=== PATIENT | female | born 1985 | race African-American/Black ===

== ENCOUNTER 2024-02-08 22:25 | Emergency (ER) | payer MEDICARE, MEDICAID, SELFPAY ==
--- NOTE | ~2024-02-08 | CT_ITS ---
EXAMINATION: CT femur LT wo con DATE: 02/09/2024 02:13 INDICATION: Left posterior thigh pain. TECHNIQUE: Computed tomography (CT) of the left femur was performed without intravenous contrast. Aut omated exposure control and iterative reconstruction technique were employed. The dose-length product was 1005.40 mGy-cm. COMPARISON: None FINDINGS: There are widespread arterial calcifications. Bone alignment is normal. No fracture. There is mild left hip osteoarthritis. There is mild left knee osteoarthritis. No knee joint effusion. Hypo density and calcifications are noted in the posterior thigh musculature. There is widespread edema in the pelvis and thighs. There is mild left inguinal lymphadenopathy, likely reactive. IMPRESSION: 1. Hypodensity in the left posterior thigh musculature. The differential diagnosis includes muscle st rains, inflammatory myopathy, infective myositis, diabetic myopathy, and rhabdomyolysis. Reviewed, dictated and finalized at location E. IMPRESSION: 1. Hypodensity in the left posterior thigh musculature. The differential diagno sis includes muscle strains, inflammatory myopathy, infective myositis, diabeti c myopathy, and rhabdomyolysis.
[2024-02-08 22:34] VITALS: BP 211/103; PULSE 95; RESP 18; TEMP 36.3; O2SAT 95
[2024-02-08 23:00] VITALS: BP 199/99; PULSE 96; RESP 16; O2SAT 96
[2024-02-08 23:45] VITALS: BP 195/90; PULSE 98; RESP 16; O2SAT 96
[2024-02-09 00:16] VITALS: BP 195/94; PULSE 95; RESP 14; O2SAT 95
[2024-02-09 01:31] VITALS: BP 208/102
[2024-02-09 01:46] VITALS: BP 192/101; O2SAT 98
--- NOTE | 2024-02-09 01:49 | PC.NURSE ---
Unsuccessful IV stick x 2. ERP notified. CT changed to non-contrast.
--- NOTE | 2024-02-09 02:19 | ED.EXTPRO ---
HPI - Extremity Problem General Chief complaint: Extremity Problem,Nontraumatic Stated complaint: l side pain and swelling Time Seen by Provider: 02/09/24 00:37 History of Present Illness HPI Narrative: Patient is a 38-year-old female who presents to the emergency department this morning complaining of posterior left thigh pain. Patient states that this pain has been ongoing for the past 5 months since August and although she has been telling multiple physicians about her pain, patient feels as though she has been treated as though she is pain seeking and her pain has not been taking seriously. Patient admits that she had a venous Doppler of her left lower extremity which revealed no evidence of DVT, however, patient states that pain is still present. She states that no imaging has ever been done. Patient is on dialysis for end-stage renal disease Thursday, , Thursday and her last dialysis was on Thursday. Patient denies any trauma to her left thigh region. There are no other modifying, alleviating, or precipitating factors at this time. Related Data Allergies Allergy/AdvReac Type Severity Reaction Status Date / Time No Known Allergies Allergy Verified 02/09/24 03:27 Review of Systems Review of Systems: All systems are reviewed and are negative unless stated otherwise in the HPI. PMFSH Comments Past medical history significant for end-stage renal disease on HD and diabetes mellitus. Surgical history significant for HD fistula. Denies any alcohol abuse or illicit drug use. Exam Narrative: General: Alert, awake, afebrile, in no acute distress. HEENT: PERRL, no rhinorrhea, no post nasal drip, oropharynx clear. Neck: Trachea midline, no JVD, no lymphadenopathy. Cardiovascular: Regular rate and rhythm, no murmurs, rubs or gallops, no peripheral edema. Respiratory: Clear to auscultation bilaterally, no tachypnea, no wheezing, no rhonchi, no rubs, no respiratory distress. Abdomen: Soft, nontender, nondistended, no rebound, no guarding, no peritoneal signs. Musculoskeletal: No joint swelling or deformity, normal muscle tone, tenderness to palpation over the left posterior mid thigh along the mid hamstring. Anastacio swelling, overlying erythema, ecchymosis, induration or evidence of infection. Skin: No rashes or petechia, no signs of infection. Psychiatric: Alert and oriented, normal behavior and judgment for situation. Neurological: Alert and oriented to person, place, and time. Follows all commands. No focal deficits, speech is clear and fluent. Course Vital Signs Vital signs: Vital Signs Temperature 97.4 F L 02/08/24 22:34 Pulse Rate 95 02/08/24 22:34 Respiratory Rate 18 02/08/24 22:34 Blood Pressure 211/103 H 02/08/24 22:34 Pulse Oximetry 95 02/08/24 22:34 Temperature 97.4 F L 02/08/24 22:34 Pulse Rate 87 02/09/24 04:30 Respiratory Rate 18 02/09/24 04:30 Blood Pressure 129/96 H 02/09/24 04:30 Pulse Oximetry 90 02/09/24 04:30 MDM - Extremity (Nontraumatic) MDM Narrative Medical decision making narrative: The patient was evaluated by myself in the emergency department. History is obtained from patient who is an independent historian and physical exam was performed. External medical records were reviewed at this time. IV was established and pertinent tests were ordered. Patient was administered an oral Faison 5-325 mg for pain. Imaging studies obtained included a left femur CT without IV contrast which was independently interpreted by me revealing hypodensity in the left posterior thigh musculature possibly concerning for diabetic myonecrosis, versus myositis versus hematoma. Giving the lack of trauma to that region, did inform patient that her symptoms could be due to myositis versus diabetic myonecrosis. Differential diagnosis considerations include fractures, myositis, diabetic myonecrosis, hematoma and rhabdomyolysis although unlikely given patient's lack muscle pain any
[2024-02-09] MEDS: HYDROcodone/acetaminophen (*CRX) 5-325 MG TABLET 1 TAB PO (03:26)
[2024-02-09 04:30] VITALS: BP 129/96; PULSE 87; RESP 18; O2SAT 90
== END 2024-02-09 05:14 | disposition home or self-care (01) ==
PROVIDERS: Emergency Provider Emergency Medicine
DX: E13.69 Other specified diabetes mellitus with other specified complication (principal); M79.89 Other specified soft tissue disorders; E11.22 Type 2 diabetes mellitus with diabetic chronic kidney disease; N18.6 End stage renal disease; Z99.2 Dependence on renal dialysis
CPT/HCPCS: 73700; 99284; A9270

== ENCOUNTER 2024-03-17 01:43 | Emergency (ER) | payer MEDICARE, MEDICAID, SELFPAY ==
--- NOTE | ~2024-03-17 | CT_ITS ---
CT of the Abdomen and Pelvis: Indication: Abdominal pain Technique: 2.5 mm axial scans were obtained through the abdomen and pelvis following intravenous adm inistration of 100 cc of Omnipaque 350. Dose reduction technique was used on this scan by utilizing a utomated exposure control and iterative reconstruction technique. The dose-length product (DLP) was 5 29.27 mGy-cm. COMPARISON: 02/09/2024 Findings: Scans through the lung bases are unremarkable. The liver, spleen, pancreas, adrenals and kidneys are within normal limits. Gallbladder is distended, possible minimal gallbladder wall thickening. No evidence of aortic aneurysm. No retroperitoneal ly mphadenopathy. No bowel obstruction or bowel wall thickening. There is no evidence to suggest acute appendicitis. Images through the pelvis were performed. Urinary bladder unremarkable. No pelvic mass seen. No ascit es. Probable mild soft tissue anasarca changes. Shotty bilateral inguinal lymph nodes are present. Impression: Probable minimal gallbladder wall thickening, nonspecific. Consider ultrasound to further assess for gallstones/cholecystitis. Mild soft tissue anasarca changes. Reviewed, dictated and finalized at location M. Impression: Probable minimal gallbladder wall thickening, nonspecific. Consider ultrasound to further assess for gallstones/cholecystitis. Mild soft tissue anasarca changes.
--- NOTE | ~2024-03-17 | XR_ITS ---
Portable chest x-ray Comparison: None Clinical History: Chest pain Findings: Lungs are clear, without focal consolidation or pleural effusion. Cardiomediastinal silho uette is probable mildly enlarged. Bones and soft tissues are unremarkable. Impression: Clear lungs. Mild cardiomegaly. Reviewed, dictated and finalized at location . Impression: Clear lungs. Mild cardiomegaly.
[2024-03-17 01:51] VITALS: BP 197/105; PULSE 89; RESP 18; TEMP 36.9; O2SAT 100
--- NOTE | 2024-03-17 01:55 | ECG_ITS ---
SEE SCANNED COPY FOR CONFIRMED REPORT. MTDD
--- NOTE | 2024-03-17 01:56 | ED.ABDPAIN ---
HPI - Abdominal Pain General Chief Complaint: Abdominal Pain <Liz Bermudez PA-C - Last Filed: 03/17/24 02:46> Stated Complaint: L side pain <Liz Bermudez PA-C - Last Filed: 03/17/24 02:46> Time Seen by Provider: 03/17/24 01:45 <Liz Bermudez PA-C - Last Filed: 03/17/24 02:46> History of Present Illness HPI narrative: 38-year-old female with history of hypertension, diabetes, hemodialysis who is on a Thursday, , Thursday schedule presents to emergency department for right sided abdominal and flank pain that radiates up into her chest for 3 days. Patient states that the onset of symptoms she had some nausea and vomiting that has since resolved. This she states the pain has significantly worsened which prompted her to come to the ED today. Reports the pain is in the right upper quadrant and extends up into the right inferior aspect of her chest and wraps around to her back. She states she please eating makes her pain worse. She does have her gallbladder present. Reports prior appendectomy. Last bowel movement was yesterday and diarrhea which is not abnormal for her. She does not make urine. Denies fever, cough or congestion, radiating chest pain or shortness of breath. Patient states she is compliant with hemodialysis and has not missed any appointments. <Liz Bermudez PA-C - Last Filed: 03/17/24 02:46> Related Data Allergies/Adverse Reactions: Allergies Allergy/AdvReac Type Severity Reaction Status Date / Time No Known Allergies Allergy Verified 02/09/24 03:27 <Liz Bermudez PA-C - Last Filed: 03/17/24 02:46> Review of Systems Review of Systems: CONSTITUTIONAL: Denies fever, chills, or sweats. EYES: Denies visual changes, redness, or discharge. ENT: Denies rhinorrhea, congestion, sore throat, or otalgia. CARDIOVASCULAR: See HPI RESPIRATORY: Denies cough or dyspnea. GASTROINTESTINAL: See HPI GENITOURINARY: Denies dysuria or hematuria. SKIN: Denies rash or itching. MUSCULOSKELETAL: Denies back pain, joint pain, or myalgia. NEUROLOGIC: Denies headache, numbness, or weakness. PSYCHIATRIC: Denies anxiety or depression. <Liz Bermudez PA-C - Last Filed: 03/17/24 02:46> Exam Narrative: GENERAL: Appears uncomfortable, nontoxic appearing HEAD: Normocephalic, atraumatic. EYES: PERRLA and EOMI. ENT: Nares clear, no rhinorrhea or epistaxis. Mucous membranes moist. NECK: Supple. CHEST: Clear to auscultation. No respiratory distress. HEART: Regular rate and rhythm. No murmur heard. Normal peripheral pulses. ABDOMEN: Normoactive bowel sounds. Abdomen soft with tenderness and guarding in the right upper quadrant, positive Rodney's. No rebound or rigidity. No CVA tenderness. EXTREMITIES: Normal range of motion. No edema. SKIN: Warm, dry, no rash. NEURO: No focal deficits. Alert and oriented x3 <Liz Bermudez PA-C - Last Filed: 03/17/24 02:46> GENERAL: Appears uncomfortable, nontoxic appearing HEAD: Normocephalic, atraumatic. EYES: PERRLA and EOMI. ENT: Nares clear, no rhinorrhea or epistaxis. Mucous membranes moist. NECK: Supple. CHEST: Clear to auscultation. No respiratory distress. HEART: Regular rate and rhythm. No murmur heard. Normal peripheral pulses. ABDOMEN: Normoactive bowel sounds. Abdomen soft with tenderness and guarding in the epigastric area . No rebound or rigidity. No CVA tenderness. point of care right upper quadrant ultrasound did not show a thickened gallbladder wall, no pericholecystic fluid. Sonographic Rodney's was negative. EXTREMITIES: Normal range of motion. No edema. SKIN: Warm, dry, no rash. NEURO: No focal deficits. Alert and oriented x3 <Mauro Corcoran MD - Last Filed: 03/17/24 05:42> Course Vital Signs Vital signs: Vital Signs Temperature 98.4 F 03/17/24 01:51 Pulse Rate 89 03/17/24 01:51 Respiratory Rate 18 03/17/24 01:51 Blood Pressure 197/105 H 03/17/24 01:51 Pulse Oximetry
[2024-03-17] MEDS: MORPHINE SULFATE (*CRX) 4 MG/ML INJ IV PUSH (02:05)
[2024-03-17 02:07] LABS: Basophils Absolute Auto 0.1 K/mm3 (0.0-0.1); Basophils Percent Auto 1.3 % (0.2-1.2); Eosinophils Absolute Auto 0.4 K/mm3 (0-0.3); Eosinophils Percent Auto 7.7 % (0-4.4); Hemoglobin 10.7 g/dL (12.0-15.0); Immature Granulocyte Absolute 0.01 K/mm3 (0.00-0.031); Immature Granulocyte Percent A 0.2 % (0-0.5); Lymphocytes Absolute Auto 1.82 K/mm3 (0.9-3.2); Lymphocytes Percent Auto 33.3 % (18.3-44.2); Mean Corpuscular HGB Conc 32.4 g/dl (32-36); Mean Corpuscular Hemoglobin 29.2 pg (26-34); Mean Corpuscular Volume 90.2 fl (80-100); Mean Platelet Volume 9.9 fl (7.4-10.4); Monocytes Absolute Auto 0.4 K/mm3 (0.1-0.6); Monocytes Percent Auto 8.1 % (2.6-8.5); Neutrophils Absolute Auto 2.7 K/mm3 (1.3-6.7); Neutrophils Percent Auto 49.4 % (45.5-73.1); Platelet Count Result 203 k/mm3 (150-375); Red Blood Count 3.66 M/mm3 (4.2-5.4); Red Cell Distribution Width 16.4 % (11.5-14.5); White Blood Count 5.5 K/mm3 (4.5-10.0)
[2024-03-17 02:18] LABS: Lactic Acid Reflex 1.7 mmol/L (0.7-2.0)
[2024-03-17 02:18] LABS: Magnesium 2.1 mg/dL (1.6-2.3); Phosphorus 9.4 mg/dL (2.5-4.5)
[2024-03-17 02:25] LABS: Alanine Aminotransferase 8 U/L (6-35); Albumin Level 4.4 g/dL (3.5-5.1); Alkaline Phosphatase 126 U/L (38-126); Anion Gap 16 mmol/L (4-12); Aspartate Amino Transferase 21 U/L (14-36); Bilirubin,Total 0.7 mg/dL (0.2-1.3); Blood Urea Nitrogen 69 mg/dL (7-17); Carbon Dioxide 25 mmol/L (22-30); Chloride 94 mmol/L (98-107); Glucose 330 mg/dL (65-110); Lipase 99 U/L (23-300); Potassium 5.6 mmol/L (3.4-5.0); Sodium 135 mmol/L (137-145)
[2024-03-17 02:29] LABS: Troponin I 0.027 ng/mL (0.000-0.034)
[2024-03-17 02:48] LABS: Estimated CRCL calculation 8 ml/min; Estimated Glomerular Filt Rate 6
[2024-03-17] MEDS: FAMOTIDINE 20 MG/2 ML VIAL IV PUSH (03:38)
[2024-03-17 03:57] VITALS: BP 196/101; PULSE 86; RESP 17; O2SAT 95
[2024-03-17] MEDS: METOCLOPRAMIDE HCL INJ 10 MG/2 ML VIAL IV PUSH (04:30)
[2024-03-17 05:04] VITALS: BP 167/89; PULSE 93; RESP 18; O2SAT 93
[2024-03-17 06:04] VITALS: BP 175/95; PULSE 87; RESP 14; O2SAT 98
== END 2024-03-17 06:04 | disposition home or self-care (01) ==
LOC: ANHED 05:44
PROVIDERS: Emergency Provider Physician Assistant
DX: E11.43 Type 2 diabetes mellitus with diabetic autonomic (poly)neuropathy (principal); K31.84 Gastroparesis; R10.11 Right upper quadrant pain; E11.22 Type 2 diabetes mellitus with diabetic chronic kidney disease; I12.0 Hypertensive chronic kidney disease with stage 5 chronic kidney disease or end stage renal disease; N18.6 End stage renal disease; Z99.2 Dependence on renal dialysis; Z79.4 Long term (current) use of insulin; R94.31 Abnormal electrocardiogram [ECG] [EKG]
CPT/HCPCS: 36415; 71045; 74177; 80053; 83605; 83690; 83735; 84100; 84484; 85025; 93005; 96374; 96375; 99284; J2270; J2765; Q9967

== ENCOUNTER 2024-03-20 01:43 | Observation (INO) | payer MEDICARE, MEDICAID, SELFPAY ==
[2024-03-20] VITALS (19 sets, daily range): BP systolic 148–228; BP diastolic 77–109; PULSE 76–92; RESP 8–21; TEMP 35.8–36.6; O2SAT 92–100
--- NOTE | ~2024-03-20 | NM_ITS ---
EXAMINATION: NM hepatobiliary w pharm DATE: 03/21/2024 12:22 INDICATION: Right upper quadrant abdominal pain. COMPARISON: CT abdomen and pelvis 03/20/2024 TECHNIQUE: 5.2 mCi Tc-99m mebrofenin (Choletec) was administered intravenously. Scintigraphic images of the abdomen were obtained for one hour. Then, 1.6 mcg sincalide (Kinevac) IV was administered, an d imaging was continued for 30 minutes. FINDINGS: There is normal clearance of radiotracer from the blood pool. There is homogeneous tracer u ptake by the liver. Activity progresses to the bowel and gallbladder. Gallbladder ejection fraction (GBEF) was 4%. Note that most patients with gallbladder dysfunction have GBEF < 35%, which overlaps w ith the broad normal range of 10-90%. IMPRESSION: 1. Low gallbladder ejection fraction, consistent with gallbladder dysfunction and/or chronic cholecy stitis. Reviewed, dictated and finalized at location A. IMPRESSION: 1. Low gallbladder ejection fraction, consistent with gallbladder dysfunction and/or chronic cholecystitis.
--- NOTE | ~2024-03-20 | US_ITS ---
EXAMINATION: US abdomen limited DATE: 03/20/2024 08:10 INDICATION: Abdominal pain. TECHNIQUE: Multiple grayscale and Doppler ultrasound images of the abdomen were obtained. COMPARISON: CT abdomen and pelvis 03/20/2024 FINDINGS: The visualized portions of the head and body of the pancreas are normal. The liver is chester l without focal lesion. There is normal flow in main portal vein. The gallbladder is distended and co ntains sludge. No gallstones or gallbladder wall thickening. There is no sonographic Rodney's sign. T he common duct is normal and measures 3 mm. IMPRESSION: 1. Gallbladder distention, which may be secondary to fasting. Reviewed, dictated and finalized at location A.
--- NOTE | ~2024-03-20 | CT_ITS ---
EXAMINATION: CT abdomen pelvis w con DATE: 03/20/2024 05:25 INDICATION: Abdominal pain. TECHNIQUE: Computed tomography (CT) of the abdomen and pelvis was performed with 100 mL Omnipaque 350 intravenous contrast. Automated exposure control and iterative reconstruction technique were employe d. The dose-length product was 432.41 mGy-cm. COMPARISON: CT abdomen and pelvis 03/17/2024 FINDINGS: The visualized portions of the lung bases demonstrate mild atelectasis. No pleural effusion . Cardiomegaly is noted. No pericardial effusion. The liver is normal. The gallbladder is distended. Gallbladder wall thickening is noted. The spleen, pancreas, and adrenal glands are normal. There is m ild atrophy of the kidneys. There are widespread arterial calcifications. Body wall edema is noted. T here is edema of the intra-abdominal fat. There are changes of appendectomy. There are no pathologica lly enlarged lymph nodes. There is no free intraperitoneal fluid. There is moderate thoracic spondylo sis and mild lumbar spondylosis. IMPRESSION: 1. Gallbladder distention and gallbladder wall thickening, which may be secondary to fasting and inte rstitial edema. Correlate with physical exam to exclude acute cholecystitis. Reviewed, dictated and finalized at location A. IMPRESSION: 1. Gallbladder distention and gallbladder wall thickening, which may be seconda ry to fasting and interstitial edema. Correlate with physical exam to exclude a cute cholecystitis.
[2024-03-20] MEDS: MORPHINE SULFATE (*CRX) 4 MG/ML INJ IV PUSH ×2 (02:57→07:21)
[2024-03-20] MEDS: SODIUM CHLORIDE 0.9% IV 500 ML 999 ML IV CONT (02:57)
[2024-03-20] MEDS: METOCLOPRAMIDE HCL INJ 10 MG/2 ML VIAL IV PUSH (02:57)
[2024-03-20 03:47] LABS: Basophils Absolute Auto 0.1 K/mm3 (0.0-0.1); Basophils Percent Auto 1.4 % (0.2-1.2); Eosinophils Absolute Auto 0.4 K/mm3 (0-0.3); Eosinophils Percent Auto 8.3 % (0-4.4); Hemoglobin 11.3 g/dL (12.0-15.0); Immature Granulocyte Absolute 0.01 K/mm3 (0.00-0.031); Immature Granulocyte Percent A 0.2 % (0-0.5); Lymphocytes Absolute Auto 1.38 K/mm3 (0.9-3.2); Mean Corpuscular HGB Conc 31.4 g/dl (32-36); Mean Corpuscular Volume 92.5 fl (80-100); Mean Platelet Volume 10.3 fl (7.4-10.4); Monocytes Absolute Auto 0.4 K/mm3 (0.1-0.6); Monocytes Percent Auto 7.9 % (2.6-8.5); Neutrophils Absolute Auto 2.7 K/mm3 (1.3-6.7); Neutrophils Percent Auto 54.2 % (45.5-73.1); Platelet Count Result 193 k/mm3 (150-375); Red Blood Count 3.89 M/mm3 (4.2-5.4); Red Cell Distribution Width 16.2 % (11.5-14.5); White Blood Count 4.9 K/mm3 (4.5-10.0)
[2024-03-20 03:57] LABS: Alanine Aminotransferase 8 U/L (6-35); Albumin Level 4.5 g/dL (3.5-5.1); Alkaline Phosphatase 136 U/L (38-126); Anion Gap 12 mmol/L (4-12); Aspartate Amino Transferase 22 U/L (14-36); Bilirubin,Total 0.7 mg/dL (0.2-1.3); Blood Urea Nitrogen 52 mg/dL (7-17); Carbon Dioxide 29 mmol/L (22-30); Chloride 90 mmol/L (98-107); Estimated CRCL calculation 10 ml/min; Estimated Glomerular Filt Rate 8; Glucose 380 mg/dL (65-110); Lipase 671 U/L (23-300); Sodium 131 mmol/L (137-145)
--- NOTE | 2024-03-20 05:09 | ED.GENADULT ---
HPI - General Adult General Chief complaint: Abdominal Pain Stated complaint: abd pain Time Seen by Provider: 03/20/24 02:03 History of Present Illness HPI narrative: Patient 38-year-old female who presents emergency department with chief complaint of abdominal pain and nausea. Patient reports she has history of gastroparesis also was seen in the emergency department about a week ago after she had large gallbladder and also had an episode of gastroparesis. The patient reports she has continued to have pain since that visit and reports the pain is not really improved. Patient reports she has prior history of end-stage renal disease and goes to dialysis Thursday Related Data Allergies Allergy/AdvReac Type Severity Reaction Status Date / Time No Known Allergies Allergy Verified 02/09/24 03:27 Review of Systems Review of Systems: A 10 system review of systems was completed on the patient and is negative except for what is stated in the HPI. Nursing and ancillary documentation was reviewed. Exam Narrative: GENERAL: Well-appearing, well-nourished, and in no acute distress. HEAD: Normocephalic, atraumatic. EYES: PERRLA and EOMI. ENT: Nares clear, no rhinorrhea or epistaxis. Mucous membranes moist. NECK: Supple. CHEST: Clear to auscultation. No respiratory distress. HEART: Regular rate and rhythm. No murmur heard. Normal peripheral pulses. ABDOMEN: Soft, diffusely tender, nondistended, normal active bowel sounds. EXTREMITIES: Normal range of motion. No edema. There is a fistula present in left upper extremity SKIN: Warm, dry, no rash. NEURO: No focal deficits. Alert and oriented x3. PSYCH: Normal mood and affect. Course Vital Signs Vital signs: Vital Signs Temperature 36.6 C 03/20/24 01:46 Pulse Rate 92 03/20/24 01:46 Respiratory Rate 17 03/20/24 01:46 Blood Pressure 200/103 H 03/20/24 01:46 Pulse Oximetry 100 03/20/24 01:46 Oxygen Delivery Room Air 03/20/24 01:46 Temperature 36.6 C 03/20/24 01:46 Pulse Rate 87 03/20/24 06:45 Respiratory Rate 16 03/20/24 06:45 Blood Pressure 165/77 H 03/20/24 06:45 Pulse Oximetry 99 03/20/24 06:45 Oxygen Delivery Room Air 03/20/24 01:46 Medical Decision Making MDM Narrative Medical decision making narrative: Differential diagnosis includes pancreatitis, colitis, cholecystitis, choledocholithiasis, gastroparesis Laboratory studies were obtained on the patient which showed a mildly elevated lipase 671 white count was 4.9 hemoglobin is 11.3 BUN is 52 creatinine was 7.3 patient is end-stage renal disease on dialysis potassium is 5.[address] scan of the abdomen pelvis showed 1. Gallbladder distention and gallbladder wall thickening, which may be secondary to fasting and interstitial edema. Correlate with physical exam to exclude acute cholecystitis. To the patient having significant pain mildly elevated lipase and a equivocal CT scan patient will be admitted for observation for pain control and ultrasound of the gallbladder. Vital Signs Vital Signs: Vital Signs Temperature 36.6 C 03/20/24 01:46 Pulse Rate 92 03/20/24 01:46 Respiratory Rate 17 03/20/24 01:46 Blood Pressure 200/103 H 03/20/24 01:46 Pulse Oximetry 100 03/20/24 01:46 Oxygen Delivery Room Air 03/20/24 01:46 Temperature 36.6 C 03/20/24 01:46 Pulse Rate 87 03/20/24 06:45 Respiratory Rate 16 03/20/24 06:45 Blood Pressure 165/77 H 03/20/24 06:45 Pulse Oximetry 99 03/20/24 06:45 Oxygen Delivery Room Air 03/20/24 01:46 Lab Data 03/20/24 02:59 03/20/24 02:59 Labs: Lab Results 03/20/24 Range/Units 02:59 WBC 4.9 (4.5-10.0) K/mm3 RBC 3.89 L (4.2-5.4) M/mm3 Hgb 11.3 L (12.0-15.0) g/dL Hct 36.0 L (37.0-47.0) % MCV 92.5 (80-100) fl MCH 29.0 (26-34) pg MCHC 31.4 L (32-36) g/dl RDW 16.2 H (11.5-14.5) % Plt Count 193 (150-375) k/mm3
[2024-03-20 07:14] LABS: SPREG INTERNAL CONTROL Positive; Serum Qual hCG Negative
--- NOTE | 2024-03-20 07:30 | PM.IMHP ---
H&P: HPI History of Present Illness Date/Time: 03/20/24 07:30 Chief Complaint: Abdominal pain Narrative: 38-year-old female with insulin-dependent diabetes and a history of gastroparesis presented the emergency room with a 2 week history of abdominal pain is a deep aching pain in the right upper abdomen. It does not radiate. There unknown factors. No change in her stool. She is not making urine to the says which she receives on Thursday through Thursday. pain has questioned a bit over the last 2 weeks. Currently it is severe but not totally incapacitating. She still has an appetite. She denied nausea or vomiting. Notes that the pain is much different than the pain she is with gastroparesis. She denied fevers chills or sweats. Denied chest pain or shortness of breath. Denied weakness or numbness. Denied skin sores. Denied recreational substance use other than cannabis with last use about 3 weeks ago. Home insulin regimen is glargine 40 units daily and NovoLog 10 units t.i.d. before meals. She does not check her sugar very often. She has occasional hypoglycemia that resolves with eating. Review of Systems Review of Systems: All systems reviewed & are unremarkable except as noted in HPI and below PMFSH Past Medical History Medical History (Updated 03/20/24 @ 11:49 by Edwardo Cobian MD) Arteriovenous fistula for hemodialysis in place, primary Cannabis use disorder End stage renal disease on dialysis Type 1 diabetes Family History Family History Father No problems noted. Social History Social History Smoking packs per day: 1 Smoking cigarettes per day: 20.0 Years smoked: 23 Smoking pack-years: 23.00 Smoking status: Current every day smoker Tobacco type: cigarettes Alcohol intake: never Drinks per week: 0 Substance use: current Substance use type: marijuana Last use: February Do You Feel Safe in your Home?: Yes Lack of Transportation: YES Lack of Food: Never True Current Housing: I Have Housing Concerned About Future Housing: No Difficulty Paying Gas/Electric Bills: No Difficulty Paying for Meds: No Currently Unemployed: No Education: High School Diploma/GED Difficulty w/ Childcare or Family Care: No Spiritual care concerns: Yes (Church) Meds Home Medications and Allergies Home Medications Medication Instructions Recorded Confirmed Type hydrocodone 5 mg-acetaminophen 325 1 tablet PO Q8H PRN pain #10 tabs 02/09/24 Rx mg tablet trazodone 100 mg tablet 100 mg PO QHS PRN sleep #30 tabs 02/27/24 Rx metoclopramide HCl 10 mg tablet 10 mg PO Q6H PRN nausea and 03/17/24 Rx (Reglan) vomiting #30 tabs Allergies Allergy/AdvReac Type Severity Reaction Status Date / Time No Known Allergies Allergy Verified 02/09/24 03:27 Vital Signs Vital Signs - 24 hr 03/20/24 01:46 03/20/24 02:01 03/20/24 02:16 Temperature 97.9 F Pulse Rate 92 92 Respiratory Rate 17 21 H Blood Pressure 200/103 H 193/107 H 187/104 H Pulse Oximetry 100 97 Oxygen Delivery Room Air 03/20/24 03:16 03/20/24 03:31 03/20/24 03:46 Temperature Pulse Rate 88 89 86 Respiratory Rate 16 14 15 Blood Pressure 179/95 H 177/95 H 177/91 H Pulse Oximetry Oxygen Delivery 03/20/24 04:01 03/20/24 04:16 03/20/24 04:31 Temperature Pulse Rate 87 86 87 Respiratory Rate 15 14 14 Blood Pressure 166/91 H 166/91 H 148/95 H Pulse Oximetry Oxygen Delivery 03/20/24 04:46 03/20/24 06:45 Temperature Pulse Rate 83 87 Respiratory Rate 11 L 16 Blood Pressure 169/97 H 165/77 H Pulse Oximetry 95 99 Oxygen Delivery Exam Narrative: SKIN: Multiple hypermelanotic areas on face, trunk, extremities HEENT: PERRL, sclerae nonicteric, pharyngeal mucosa pink and intact NECK: No JVD, adenopathy, or thyromegaly CHEST: Clear to auscultat
--- NOTE | 2024-03-20 08:40 | PC.NURSE ---
This patient, Celeste Waters, was admitted to [facility] Surg Room 327-01. Patient/family oriented to hospital policies and general routines including ID bracelet, bed and alarms, visiting hours, pain management, procedures, bathroom and other care routines, personal items, smoking policy, room service/diet, and visiting hours. Information on how to activate the Rapid Response Team has been discussed. Patient/Family are encouraged to report perceived risks to care and to ask questions if they do not understand what they are told or what they should do.
[2024-03-20 10:46] LABS: Glucose Point of Care 177 mg/dl (65-105)
[2024-03-20] MEDS: oxyCODONE HCL (*CRX) 2.5 MG TAB IR PO ×2 (13:11→18:25)
--- NOTE | 2024-03-20 13:45 | PM.CNNEP ---
Assessment and Plan Assessment and plan (1) End stage renal disease: Code(s): N18.6 - End stage renal disease Status: Chronic Assessment and Plan: plan next HD on Thursday continue outpatient schedule of //Thursday follow electrolytes, volume status, and clearance (2) Abdominal pain: Code(s): R10.9 - Unspecified abdominal pain Status: Acute Assessment and Plan: as noterd by admission history admission CT abdomen pelvis revealed distended gallbladder with thickened wall RUQ with distended gallbladder LFTs okay elevated lipase noted HIDA scan ordered for further evaluation clear liquid diet pain control (3) Hypertension: Code(s): I10 - Essential (primary) hypertension Status: Chronic Assessment and Plan: quite erratic at baseline pain issues maybe playing a role as well will restart carvedilol and losartan (home medications) may require PRN medications as well (4) Anemia: Code(s): D64.9 - Anemia, unspecified Status: Chronic Assessment and Plan: due to ESRD Epogen with HD follow trend of H/H (5) Type 1 diabetes: Code(s): E10.9 - Type 1 diabetes mellitus without complications Status: Chronic Assessment and Plan: follow accu-cheks glycemic control per hospitalists I will continue follow the patient with you while she remains hospitalized and make further recommendations as deemed necessary. Thank you for allowing me to participate in the care of this patient. History of Present Illness Reason for Consult Consult date: 03/20/24 Reason for consult: end stage renal disease Chief Complaint Chief complaint: abdominal pain,esrd History of Present Illness Narrative: The patient is a 38-year-old female with a past medical history as outlined below who presented to [facility] Emergency Room with complaints of abdominal pain. The patient reports that she has been having abdominal pain for last 2 weeks have been current on and off which she describes as a deep aching pain localized to the right upper quadrant. There is no apparent radiation and she does not report any specific alleviating or worsening factors. Although she reports the pain is sometimes quite severe, she is able to tolerated and is not incapacitating. She denies any nausea or vomiting and reports that the abdominal pain is different than the usual pain she has in association with gastroparesis. No reported fevers, chills, diaphoresis, dizziness, lightheadedness, shortness of breath, or weakness. Given the persistence of the abdominal pain and it is fluctuating nature, she came to the ER for further assessment Workup and evaluation emergency room demonstrated the patient be hemodynamically stable and in no acute distress. Routine blood tests were significant for a chemistry that was indicative of her known history of end-stage renal disease with a normal white blood cell count, hemoglobin/ hematocrit, and platelet count. Her lipase was mildly elevated as well. A subsequent CT scan of the abdomen pelvis was done which demonstrated a distended gallbladder without evidence of acute cholecystitis. A right upper quadrant ultrasound was done as well which confirmed the aforementioned distended gallbladder without any other significant findings. Given her constellation of symptoms that led to the presentation to the emergency room along with the results of the imaging studies mention, she was admitted to the hospital for further evaluation therapy. Renal consultation was requested due to her end-stage renal disease. The patient is somewhat familiar to me as I take care of her outpatient dialysis needs. She currently dialyzes on a Thursday, , Thursday schedule at [facility] dialysis under my care. I recently inherited the patient approximately a few months ago as she was previously being followed by [facility]
[2024-03-20 17:14] LABS: Glucose Point of Care 221 mg/dl (65-105)
[2024-03-20] MEDS: LOSARTAN POTASSIUM 100 MG TABLET PO (17:25)
[2024-03-20] MEDS: amLODIPine BESYLATE 5 MG TABLET PO (17:25)
[2024-03-20] MEDS: carvediloL 25 MG TABLET PO (17:25)
[2024-03-20] MEDS: INSULIN ASPART (*BKC) 100 UNITS/ML SUB-Q ×2 (17:28→17:31)
[2024-03-20] MEDS: PANTOPRAZOLE SODIUM IV 40 MG VIAL IV PUSH (20:34)
[2024-03-20] MEDS: HEPARIN SODIUM 5,000 UNITS/ML VIAL 5000 UNITS SUB-Q (20:34)
[2024-03-20] MEDS: INSULIN GLARGINE (*BKC) 100 UNITS/ML 20 UNITS SUB-Q (20:37)
[2024-03-20 20:53] LABS: Glucose Point of Care 116 mg/dl (65-105)
[2024-03-21] MEDS: oxyCODONE HCL (*CRX) 2.5 MG TAB IR PO ×3 (00:53→20:58)
[2024-03-21 00:54] VITALS: PULSE 76
[2024-03-21] MEDS: carvediloL 25 MG TABLET PO ×3 (00:54→20:57)
[2024-03-21 05:34] LABS: Hematocrit 37.1 % (37.0-47.0); Hemoglobin 10.8 g/dL (12.0-15.0); Mean Corpuscular HGB Conc 29.1 g/dl (32-36); Mean Corpuscular Hemoglobin 29.3 pg (26-34); Mean Corpuscular Volume 100.5 fl (80-100); Mean Platelet Volume 12.6 fl (7.4-10.4); Platelet Count Result 51 k/mm3 (150-375); Red Blood Count 3.69 M/mm3 (4.2-5.4)
[2024-03-21 05:39] LABS: White Blood Count 3.2 K/mm3 (4.5-10.0)
[2024-03-21 06:00] VITALS: BP 182/97; PULSE 73; RESP 18; TEMP 36.4; O2SAT 100
[2024-03-21 06:50] LABS: Alanine Aminotransferase 6 U/L (6-35); Albumin Level 4.2 g/dL (3.5-5.1); Alkaline Phosphatase 89 U/L (38-126); Anion Gap 17 mmol/L (4-12); Aspartate Amino Transferase 21 U/L (14-36); Bilirubin,Total 0.7 mg/dL (0.2-1.3); Blood Urea Nitrogen 64 mg/dL (7-17); CRP < 0.5 mg/dL (<1.0); Carbon Dioxide 24 mmol/L (22-30); Chloride 90 mmol/L (98-107); Estimated CRCL calculation 9 ml/min; Estimated Glomerular Filt Rate 6; Glucose 99 mg/dL (65-110); Magnesium 2.1 mg/dL (1.6-2.3); Phosphorus 11.1 mg/dL (2.5-4.5); Potassium 5.6 mmol/L (3.4-5.0); Sodium 131 mmol/L (137-145)
[2024-03-21 07:09] LABS: Hepatitis B Surface Antigen Negative (Negative)
[2024-03-21 07:23] LABS: Lipase 55 U/L (23-300)
[2024-03-21 07:28] LABS: Hepatitis B Surface Anti Res Positive
[2024-03-21] MEDS: SODIUM ZIRCONIUM CYCLOSILICATE 10 GM POWD.PACK PO (07:37)
[2024-03-21 07:51] LABS: Glucose Point of Care 75 mg/dl (65-105)
--- NOTE | 2024-03-21 08:31 | PHAR ---
TALKED TO NAOMIE, PLATELETS ARE 51,000 & ON HEPARIN. MD WILL NEED TO BE CONTACTED BEFORE NEXT DOSE GIVEN.
[2024-03-21 11:30] LABS: Glucose Point of Care 79 mg/dl (65-105)
[2024-03-21] MEDS: LOSARTAN POTASSIUM 100 MG TABLET PO (11:44)
[2024-03-21] MEDS: PANTOPRAZOLE SODIUM IV 40 MG VIAL IV PUSH ×2 (11:44→20:58)
[2024-03-21] MEDS: amLODIPine BESYLATE 5 MG TABLET PO (11:44)
--- NOTE | 2024-03-21 12:35 | PM.PNNEP ---
Progress Note: A&P Assessment and Plan (1) End stage renal disease: Code(s): N18.6 - End stage renal disease Status: Chronic Assessment and Plan: HD tomorrow continue outpatient schedule of //Thursday follow electrolytes, volume status, and clearance (2) Abdominal pain: Code(s): R10.9 - Unspecified abdominal pain Status: Acute Assessment and Plan: as noterd by admission history admission CT abdomen pelvis revealed distended gallbladder with thickened wall RUQ with distended gallbladder LFTs okay elevated lipase noted HIDA scan results noted advance diet as tolerated pain control (3) Hypertension: Code(s): I10 - Essential (primary) hypertension Status: Chronic Assessment and Plan: quite erratic at baseline pain issues maybe playing a role as well back on home medications may require PRN medications as well (4) Anemia: Code(s): D64.9 - Anemia, unspecified Status: Chronic Assessment and Plan: due to ESRD Epogen with HD follow trend of H/H (5) Type 1 diabetes: Code(s): E10.9 - Type 1 diabetes mellitus without complications Status: Chronic Assessment and Plan: follow accu-cheks glycemic control per hospitalists Will continue to follow. Subjective Date/time seen: 03/21/24 12:35 Interval history: Follow-up for end stage renal disease on hemodialysis. HIDA scan done earlier today with results noted; still with on/off abdominal pain but current medication therapy keeps this symptom in check; no apparent distress voiced at the time of my visit; no issues/events overnight or earlier this morning. Exam Narrative: General: WD/WN female in NAD Heart: normal S1 and S2; no rub Lungs: clear to auscultation Abdomen: soft, mild TTP in RUQ, nondistended, positive bowel sounds Extremities: no cyanosis or clubbing; no edema Skin: warm and dry Objective Data Vital Signs Vital Signs: Vital Signs Temp Pulse Resp BP Pulse Ox O2 Del Method 03/21/24 12:00 97.3 F L 68 16 168/93 H 100 03/21/24 08:00 Room Air 03/21/24 06:00 97.5 F L 73 18 182/97 H 100 03/21/24 00:54 76 03/20/24 21:29 97.1 F L 76 16 184/100 H 100 Intake/Output Intake/Output: Intake & Output 03/18/24 03/19/24 03/20/24 03/21/24 23:59 23:59 23:59 23:59 Intake Total 1098 440 Balance 1098 440 Meds/Results Medications: Active Medications Generic Name Dose Route Start Last Admin Trade Name Freq PRN Reason Stop Dose Admin Acetaminophen 650 mg 03/20/24 12:13 Acetaminophen 325 Mg Tablet PO Q4H PRN Pain Rated 1-3 Amlodipine Besylate 5 mg 03/20/24 14:45 03/21/24 11:44 Amlodipine Besylate 5 Mg Tablet PO 5 mg QAM KAREEN Administration Carvedilol 25 mg 03/20/24 17:10 03/21/24 11:44 Carvedilol 25 Mg Tablet PO 25 mg Q12HR KAREEN Administration Dextrose 12.5 gm 03/20/24 12:08 Dextrose 50% 25 Gm/50 Ml Syringe IV PUSH PRN PRN Hypoglycemia Protocol Glucagon 1 mg 03/20/24 12:08 Glucagon For Inj 1 Mg Vial IM PRN PRN Hypoglycemia Protocol Glucose 15 gm 03/20/24 12:08 Glucose Oral Gel 15 Gm Of Glucse In 37.5 Gm Tube PO PRN PRN Hypoglycemia Protocol Heparin Sodium (Porcine) 5,000 units 03/20/24 21:00 03/21/24 12:15 Heparin Sodium 5,000 Units/Ml Vial SUB-Q Not Given Q12HR KAREEN Hydralazine HCl 10 mg 03/21/24 10:38 Hydralazine Hcl 20 Mg/Ml Vial IV PUSH Q8H PRN Blood Pressure - High Hydromorphone HCl 0.5 mg 03/20/24 12:11 Hydromorphone Hcl Inj (*Crx) 1 Mg/Ml Syr IV PUSH Q3H PRN Pain Rated 7-10 Dextrose 1,000 mls @ 100 mls/hr 03/20/24 12:08 Dextrose 5% 1,000 Ml IVPB PRN PRN Hypoglycemia Protocol Insulin Aspart 3 units 03/20/24 12:00 03/21/24 16:51 Insulin Aspart (*Bkc) 100 Units/Ml SUB-Q 3
--- NOTE | 2024-03-21 12:35 | P.PNNP_ITS ---
Progress Note: A&P Assessment and Plan (1) End stage renal disease: Code(s): N18.6 - End stage renal disease Status: Chronic Assessment and Plan: * HD tomorrow * continue outpatient schedule of //Thursday * follow electrolytes, volume status, and clearance (2) Abdominal pain: Code(s): R10.9 - Unspecified abdominal pain Status: Acute Assessment and Plan: * as noterd by admission history * admission CT abdomen pelvis revealed distended gallbladder with thickened wall * RUQ with distended gallbladder * LFTs okay * elevated lipase noted * HIDA scan results noted * advance diet as tolerated * pain control (3) Hypertension: Code(s): I10 - Essential (primary) hypertension Status: Chronic Assessment and Plan: * quite erratic at baseline * pain issues maybe playing a role as well * back on home medications * may require PRN medications as well (4) Anemia: Code(s): D64.9 - Anemia, unspecified Status: Chronic Assessment and Plan: * due to ESRD * Epogen with HD * follow trend of H/H (5) Type 1 diabetes: Code(s): E10.9 - Type 1 diabetes mellitus without complications Status: Chronic Assessment and Plan: * follow accu-cheks * glycemic control per hospitalists Will continue to follow. Subjective Date/time seen: 03/21/24 12:35 Interval history: Follow-up for end stage renal disease on hemodialysis. HIDA scan done earlier today with results noted; still with on/off abdominal pain but current medication therapy keeps this symptom in check; no apparent distress voiced at the time of my visit; no issues/events overnight or earlier this morning. Exam Narrative: General: WD/WN female in NAD Heart: normal S1 and S2; no rub Lungs: clear to auscultation Abdomen: soft, mild TTP in RUQ, nondistended, positive bowel sounds Extremities: no cyanosis or clubbing; no edema Skin: warm and dry Objective Data Vital Signs Vital Signs: Vital Signs Temp Pulse Resp BP Pulse Ox O2 Del Method 03/21/24 12:00 97.3 F L 68 16 168/93 H 100 03/21/24 08:00 Room Air 03/21/24 06:00 97.5 F L 73 18 182/97 H 100 03/21/24 00:54 76 03/20/24 21:29 97.1 F L 76 16 184/100 H 100 Intake/Output Intake/Output: Intake & Output 03/18/24 03/19/24 03/20/24 03/21/24 23:59 23:59 23:59 23:59 Intake Total 1098 440 Balance 1098 440 Meds/Results Medications: Active Medications Generic Name Dose Route Start Last Admin Trade Name Freq PRN Reason Stop Dose Admin Acetaminophen 650 mg 03/20/24 12:13 Acetaminophen 325 Mg Tablet PO Q4H PRN Pain Rated 1-3 Amlodipine Besylate 5 mg 03/20/24 14:45 03/21/24 11:44 Amlodipine Besylate 5 Mg Tablet PO 5 mg QAM KAREEN Administration Carvedilol 25 mg 03/20/24 17:10 03/21/24 11:44 Carvedilol 25 Mg Tablet PO 25 mg Q12HR KAREEN Administration Dextrose 12.5 gm 03/20/24 12:08 Dextrose 50% 25 Gm/50 Ml Syringe IV PUSH PRN PRN Hypoglycemia Protocol
[2024-03-21 13:25] VITALS: BMI 28.3
[2024-03-21 14:00] VITALS: BP 168/93; PULSE 68; RESP 16; TEMP 36.3; O2SAT 100
--- NOTE | 2024-03-21 15:47 | PC.NURSE ---
Diabetic nurse educator met with this patient today and gave the patient a One Touch Verio Glucometer. Diabetic nurse educator states that when discharged, the patient will need a prescription for Verio Test Strips and Delica Lancets.
[2024-03-21 16:38] LABS: Glucose Point of Care 271 mg/dl (65-105)
[2024-03-21] MEDS: INSULIN ASPART (*BKC) 100 UNITS/ML SUB-Q ×2 (16:51)
--- NOTE | 2024-03-21 17:05 | PM.IMPN ---
Progress Note: A&P Assessment and Plan (1) Abdominal pain: Code(s): R10.9 - Unspecified abdominal pain Status: Acute Assessment and Plan: 03/20 CT abdomen pelvis revealed distended gallbladder with thickened wall no other abnormalities noted 03/20 Ultrasound right upper quadrant with distended gallbladder no other abnormalities noted Liver function tests were unremarkable while amylase was mildly elevated at 671 a beta hCG was negative Differential diagnosis includes acalculous cholecystitis, biliary dysfunction, ischemic viscus, duodenitis, pancreatitis, inflammatory bowel disease, neoplasm of biliary tree or intestine HIDA 03/21: if ABNL consult surgery surgery consulted today HIDA scan is back now (2) Type 1 diabetes: Code(s): E10.9 - Type 1 diabetes mellitus without complications Status: Chronic Assessment and Plan: Accuhecks, SSI lantus , sugars are stable (3) Cannabis use disorder: Code(s): F12.90 - Cannabis use, unspecified, uncomplicated Status: Acute Assessment and Plan: Encouraged continued abstinence (4) End stage renal disease on dialysis: Code(s): N18.6 - End stage renal disease; Z99.2 - Dependence on renal dialysis Status: Acute Assessment and Plan: Nephrology on board (5) Arteriovenous fistula for hemodialysis in place, primary: Code(s): Z99.2 - Dependence on renal dialysis Status: Acute Assessment and Plan: Nephrology on board Subjective Date/time seen: 03/21/24 17:05 Interval history: 38-year-old female with insulin-dependent diabetes and a history of gastroparesis presented the emergency room with a 2 week history of abdominal pain is a deep aching pain in the right upper abdomen. Pt is a dialysis pt seen by nephrology already. Pt had US showing GB distension andCT scan showing the same pt went for HIDA scan today showing -Low gallbladder ejection fraction, consistent with gallbladder dysfunction and/or chronic cholecystitis. Surgery team consulted pt can eat renal diet tonite. Review of Systems Review of Systems: mild RUQ pains Exam Narrative: General: chronically ill lady younger lady NECK: No JVD, adenopathy, or thyromegaly CHEST: Clear to auscultation. Normal effort. HEART: NL S1/S2, regular, no murmur ABDOMEN: BS+, soft, TTTP over RUQ EXTREMITIES: No cyanosis, edema, or clubbing, LUE AV fistula with thrill NEUROLOGIC: CN intact and symmetric to inspection. MUSCULOSKELETAL: Tone and strength symmetric. PSYCH: Alert. Oriented to person, place, and time. Objective Data Vital Signs Vital Signs: Vital Signs - 24 hr 03/20/24 17:25 03/20/24 21:29 03/21/24 00:54 Temperature 36.2 C L Pulse Rate 90 76 76 Respiratory Rate 16 Blood Pressure 184/100 H Pulse Oximetry 100 Oxygen Delivery 03/21/24 06:00 03/21/24 08:00 03/21/24 14:00 Temperature 36.4 C L 36.3 C L Pulse Rate 73 68 Respiratory Rate 18 16 Blood Pressure 182/97 H 168/93 H Pulse Oximetry 100 100 Oxygen Delivery Room Air Intake/Output Intake/Output: Intake & Output 03/18/24 03/19/24 03/20/24 03/21/24 23:59 23:59 23:59 23:59 Intake Total 1098 440 Balance 1098 440 Meds/Results Medications: Active Medications Generic Name Dose Route Start Last Admin Trade Name Freq PRN Reason Stop Dose Admin Acetaminophen 650 mg 03/20/24 12:13 Acetaminophen 325 Mg Tablet PO Q4H PRN Pain Rated 1-3 Amlodipine Besylate 5 mg 03/20/24 14:45 03/21/24 11:44 Amlodipine Besylate 5 Mg Tablet PO 5 mg QAM KAREEN Administration Carvedilol 25 mg 03/20/24 17:10 03/21/24 11:44 Carvedilol 25 Mg Tablet PO 25 mg Q12HR KAREEN Administration Dextrose 12.5 gm 03/20/24 12:08 Dextrose 50% 25 Gm/50 Ml Syringe IV PUSH PRN PRN Hypoglycemia Protocol Glucagon 1 mg 03/20/24 12:08 Glucagon For Inj 1 Mg Vial IM PRN PRN Hypoglycemia Prot
[2024-03-21 20:57] VITALS: PULSE 82
[2024-03-21] MEDS: HEPARIN SODIUM 5,000 UNITS/ML VIAL 5000 UNITS SUB-Q (20:57)
[2024-03-21] MEDS: INSULIN GLARGINE (*BKC) 100 UNITS/ML 20 UNITS SUB-Q (20:58)
[2024-03-21 21:06] VITALS: BP 180/96; PULSE 73; RESP 22; TEMP 36.3; O2SAT 100
[2024-03-21 21:17] LABS: Glucose Point of Care 177 mg/dl (65-105)
[2024-03-21] MEDS: hydrALAZINE HCL 20 MG/ML VIAL 10 MG IV PUSH (22:29)
[2024-03-21 23:18] VITALS: BP 172/88; PULSE 76; RESP 18; O2SAT 98
[2024-03-22] VITALS (22 sets, daily range): BP systolic 100–180; BP diastolic 61–96; PULSE 72–83; RESP 16–18; TEMP 35.6–37; O2SAT 98–100
[2024-03-22] MEDS: ACETAMINOPHEN 325 MG TABLET 650 MG PO
[2024-03-22] MEDS: LOSARTAN POTASSIUM 100 MG TABLET PO (06:06)
[2024-03-22] MEDS: carvediloL 25 MG TABLET PO (06:06)
[2024-03-22] MEDS: amLODIPine BESYLATE 5 MG TABLET PO (06:07)
[2024-03-22] MEDS: oxyCODONE HCL (*CRX) 2.5 MG TAB IR PO (06:07)
[2024-03-22 06:16] LABS: Hematocrit 31.7 % (37.0-47.0); Hemoglobin 10.3 g/dL (12.0-15.0); Mean Corpuscular HGB Conc 32.5 g/dl (32-36); Mean Corpuscular Hemoglobin 29.3 pg (26-34); Mean Corpuscular Volume 90.3 fl (80-100); Mean Platelet Volume 10.8 fl (7.4-10.4); Platelet Count Result 198 k/mm3 (150-375); Red Blood Count 3.51 M/mm3 (4.2-5.4); Red Cell Distribution Width 15.6 % (11.5-14.5); White Blood Count 4.8 K/mm3 (4.5-10.0)
[2024-03-22 06:29] LABS: Anion Gap 14 mmol/L (4-12); Blood Urea Nitrogen 74 mg/dL (7-17); Calcium 8.3 mg/dL (8.4-10.2); Carbon Dioxide 23 mmol/L (22-30); Chloride 92 mmol/L (98-107); Glucose 165 mg/dL (65-110); Potassium 5.6 mmol/L (3.4-5.0); Sodium 129 mmol/L (137-145)
[2024-03-22 06:39] LABS: Estimated CRCL calculation 7 ml/min; Estimated Glomerular Filt Rate 5
[2024-03-22 07:45] LABS: Glucose Point of Care 133 mg/dl (65-105)
--- NOTE | 2024-03-22 08:10 | PC.NURSE ---
To dialysis via bed.
[2024-03-22 08:46] LABS: MRSA (PCR) NOT DETECTED (NOT DETECTE)
--- NOTE | 2024-03-22 09:43 | P.PNNP_ITS ---
Progress Note: A&P Assessment and Plan (1) End stage renal disease: Code(s): N18.6 - End stage renal disease Status: Chronic Assessment and Plan: * HD today * continue outpatient schedule of //Thursday * follow electrolytes, volume status, and clearance (2) Abdominal pain: Code(s): R10.9 - Unspecified abdominal pain Status: Acute Assessment and Plan: * as noterd by admission history * admission CT abdomen pelvis revealed distended gallbladder with thickened wall * RUQ with distended gallbladder * LFTs okay * elevated lipase noted * HIDA scan results noted * advance diet as tolerated * Surgery consulted * pain control (3) Hypertension: Code(s): I10 - Essential (primary) hypertension Status: Chronic Assessment and Plan: * quite erratic at baseline * pain issues maybe playing a role as well * back on home medications * may require PRN medications as well (4) Anemia: Code(s): D64.9 - Anemia, unspecified Status: Chronic Assessment and Plan: * due to ESRD * Epogen with HD * follow trend of H/H (5) Type 1 diabetes: Code(s): E10.9 - Type 1 diabetes mellitus without complications Status: Chronic Assessment and Plan: * follow accu-cheks * glycemic control per hospitalists Will continue to follow. Subjective Date/time seen: 03/22/24 09:43 Interval history: Follow-up for end stage renal disease on hemodialysis. Tolerating dialysis treatment at the time of my visit (seen on HD at 9:33AM); no acute distress noted; no issues/events overnight or earlier this morning; tolerating oral intake without any problems. Exam Narrative: General: WD/WN female in NAD Heart: normal S1 and S2; no rub Lungs: clear to auscultation Abdomen: soft, mild TTP in RUQ, nondistended, positive bowel sounds Extremities: no cyanosis or clubbing; no edema Skin: warm and intact Objective Data Vital Signs Vital Signs: Vital Signs Temp Pulse Resp BP Pulse Ox O2 Del Method FiO2 03/22/24 09:30 74 114/70 03/22/24 09:00 77 150/89 H 03/22/24 08:45 78 158/90 H 03/22/24 08:45 78 158/90 H 03/22/24 08:30 76 180/94 H 03/22/24 09:15 76 118/74 03/22/24 08:26 75 168/96 H 03/22/24 08:05 Room Air 03/22/24 08:54 98.2 F 75 16 166/86 H 100 03/22/24 08:54 100 03/22/24 06:06 79 03/22/24 06:00 97.1 F L 79 18 172/90 H 98 03/21/24 23:18 76 18 172/88 H 98 03/21/24 21:06 97.4 F L 73 22 H 180/96 H 100 03/21/24 20:57 82 03/21/24 14:00 97.3 F L 68 16 168/93 H 100 Intake/Output Intake/Output: Intake & Output 03/19/24 03/20/24 03/21/24 03/22/24 23:59 23:59 23:59 23:59 Intake Total 1098 680 340 Balance 1098 680 340 Meds/Results Medications: Active Medications Generic Name Dose Route Start Last Admin Trade Name Denise PRN Reason Stop Dose Admin Acetaminophen 650 mg 03/20/24 12:13 03/22/24 00:00 Acetaminophen 325 Mg Tablet PO 650 mg Q4H PRN
--- NOTE | 2024-03-22 09:43 | PM.PNNEP ---
Progress Note: A&P Assessment and Plan (1) End stage renal disease: Code(s): N18.6 - End stage renal disease Status: Chronic Assessment and Plan: HD today continue outpatient schedule of //Thursday follow electrolytes, volume status, and clearance (2) Abdominal pain: Code(s): R10.9 - Unspecified abdominal pain Status: Acute Assessment and Plan: as noterd by admission history admission CT abdomen pelvis revealed distended gallbladder with thickened wall RUQ with distended gallbladder LFTs okay elevated lipase noted HIDA scan results noted advance diet as tolerated Surgery consulted pain control (3) Hypertension: Code(s): I10 - Essential (primary) hypertension Status: Chronic Assessment and Plan: quite erratic at baseline pain issues maybe playing a role as well back on home medications may require PRN medications as well (4) Anemia: Code(s): D64.9 - Anemia, unspecified Status: Chronic Assessment and Plan: due to ESRD Epogen with HD follow trend of H/H (5) Type 1 diabetes: Code(s): E10.9 - Type 1 diabetes mellitus without complications Status: Chronic Assessment and Plan: follow accu-cheks glycemic control per hospitalists Will continue to follow. Subjective Date/time seen: 03/22/24 09:43 Interval history: Follow-up for end stage renal disease on hemodialysis. Tolerating dialysis treatment at the time of my visit (seen on HD at 9:33AM); no acute distress noted; no issues/events overnight or earlier this morning; tolerating oral intake without any problems. Exam Narrative: General: WD/WN female in NAD Heart: normal S1 and S2; no rub Lungs: clear to auscultation Abdomen: soft, mild TTP in RUQ, nondistended, positive bowel sounds Extremities: no cyanosis or clubbing; no edema Skin: warm and intact Objective Data Vital Signs Vital Signs: Vital Signs Temp Pulse Resp BP Pulse Ox O2 Del Method FiO2 03/22/24 09:30 74 114/70 03/22/24 09:00 77 150/89 H 03/22/24 08:45 78 158/90 H 03/22/24 08:45 78 158/90 H 03/22/24 08:30 76 180/94 H 03/22/24 09:15 76 118/74 03/22/24 08:26 75 168/96 H 03/22/24 08:05 Room Air 03/22/24 08:54 98.2 F 75 16 166/86 H 100 03/22/24 08:54 100 03/22/24 06:06 79 03/22/24 06:00 97.1 F L 79 18 172/90 H 98 03/21/24 23:18 76 18 172/88 H 98 03/21/24 21:06 97.4 F L 73 22 H 180/96 H 100 03/21/24 20:57 82 03/21/24 14:00 97.3 F L 68 16 168/93 H 100 Intake/Output Intake/Output: Intake & Output 03/19/24 03/20/24 03/21/24 03/22/24 23:59 23:59 23:59 23:59 Intake Total 1098 680 340 Balance 1098 680 340 Meds/Results Medications: Active Medications Generic Name Dose Route Start Last Admin Trade Name Freq PRN Reason Stop Dose Admin Acetaminophen 650 mg 03/20/24 12:13 03/22/24 00:00 Acetaminophen 325 Mg Tablet PO 650 mg Q4H PRN Administration Pain Rated 1-3 Amlodipine Besylate 5 mg 03/20/24 14:45 03/22/24 06:07 Amlodipine Besylate 5 Mg Tablet PO 5 mg QAM KAREEN Administration Atorvastatin Calcium 10 mg 03/22/24 09:00 Atorvastatin 10 Mg Tablet PO DAILY KAREEN Carvedilol 25 mg 03/20/24 17:10 03/22/24 06:06 Carvedilol 25 Mg Tablet PO 25 mg Q12HR KAREEN Administration Dextrose 12.5 gm 03/20/24 12:08 Dextrose 50% 25 Gm/50 Ml Syringe IV PUSH PRN PRN Hypoglycemia Protocol Epoetin Tomi-epbx 10,000 units 03/22/24 20:00 03/22/24 10:53 Epoetin Tomi-Epbx 10,000 Units/Ml Vial IV PUSH 03/22/24 20:01 10,000 units ONCE ONE Administration Gabapentin 400 mg 03/22/24 09:00 03/22/24 10:46 Gabapentin 400 Mg Capsule PO 400 mg TID KAREEN Administration Glucagon 1 mg 03/20/24 12:08 Glucagon For Inj 1 Mg Vial IM
[2024-03-22] MEDS: HEPARIN SODIUM 1,000 UNITS/ML VIAL 5000 UNITS (10:07)
[2024-03-22] MEDS: SODIUM CHLORIDE 0.9% IV 1,000 ML 999 ML IV CONT (10:09)
[2024-03-22] MEDS: GABAPENTIN 400 MG CAPSULE PO ×3 (10:46→16:46)
[2024-03-22] MEDS: EPOETIN ALFA-EPBX 10,000 UNITS/ML VIAL 10000 UNITS IV PUSH (10:53)
--- NOTE | 2024-03-22 11:42 | PM.CNGS ---
Assessment and Plan Assessment and plan (1) Chronic cholecystitis: Code(s): K81.1 - Chronic cholecystitis Status: Acute Assessment and Plan: Patient with intermittent RUQ abdominal pain for the past three weeks. HIDA scan with findings of low gallbladder ejection fraction, consistent with chronic cholecystitis/gallbladder dysfunction. She is able to tolerate a diet and does not have any evidence of acute cholecystitis or cystic duct obstruction. No indication for urgent surgical intervention. We would recommend to follow a low-fat diet and follow up as an outpatient to discuss elective laparoscopic cholecystectomy with Dr. Putnam after discharge. (2) Type 1 diabetes: Code(s): E10.9 - Type 1 diabetes mellitus without complications Status: Chronic (3) End stage renal disease on dialysis: Code(s): N18.6 - End stage renal disease; Z99.2 - Dependence on renal dialysis Status: Acute (4) Cannabis use disorder: Code(s): F12.90 - Cannabis use, unspecified, uncomplicated Status: Acute (5) Anemia: Code(s): D64.9 - Anemia, unspecified Status: Chronic Plan I have discussed the patient's case and plan of care with Dr. Putnam. Thank you for allowing us to see the patient in consultation. History of Present Illness Consult details Consult date: 03/22/24 Reason for consult: other (RUQ abdominal pain, abnormal HIDA scan) Requesting physician: Vannessa Sands MD Narrative: This is a 38-year-old woman with insulin-dependent type 1 diabetes mellitus, gastroparesis, and end-stage renal disease on hemodialysis, who has presented to the ER twice in the past week for right-sided abdominal pain. She reports having right-sided abdominal pain starting about 3 weeks ago. The pain waxes and wanes throughout the day. It seems to get worse in the evening after dinner when she has her largest meal. She has had intermittent nausea and 1 episode of vomiting. Otherwise, she is able to tolerate a diet. She was seen on 03/17/2024 in the ER and had CT evidence of probable minimal gallbladder wall thickening, but otherwise normal gallbladder. WBC count and LFTs normal. Symptoms improved in the ER and she was discharged home. She continued to have abdominal pain and returned 2 days ago for similar symptoms. Repeat labs showed a white blood cell count 4900 and LFTs normal. Lipase 671 and repeat lipase normal. CT scan of the abdomen and pelvis on 03/20/2024 showed gallbladder distention and gallbladder wall thickening, which may be secondary to fasting and interstitial edema. Right upper quadrant abdominal ultrasound showed gallbladder distention with gallbladder sludge. Nose there wall thickening. No sonographic Rodney sign. Common bile duct measuring 3 mm. She was admitted for further workup. HIDA scan ordered and showed a gallbladder ejection fraction of 4%, consistent with gallbladder dysfunction and/or chronic cholecystitis. Labs have remained stable. Our service was consulted for surgical evaluation. She is seen in dialysis today and has been tolerating her meals. She is not requiring any analgesics for her pain. Only previous abdominal surgery was a laparoscopic appendectomy at age 18. Review of Systems Review of Systems: All systems reviewed & are unremarkable except as noted in HPI and below PMFSH Past Medical History Medical History Anemia Arteriovenous fistula for hemodialysis in place, primary Cannabis use disorder CHF (congestive heart failure) End stage renal disease on dialysis Gastroparesis GERD (gastroesophageal reflux disease) Hypertension Peripheral neuropathy PUD (peptic ulcer disease) Reactive airway disease Type 1 diabetes Surgical History Surgical History History of appendectomy S/P arteriovenous (AV) fistula creation Family History Family Hist
[2024-03-22 12:42] LABS: Glucose Point of Care 155 mg/dl (65-105)
[2024-03-22] MEDS: INSULIN ASPART (*BKC) 100 UNITS/ML SUB-Q ×3 (13:18→16:46)
[2024-03-22] MEDS: ATORVASTATIN 10 MG TABLET PO (13:19)
[2024-03-22] MEDS: PANTOPRAZOLE SODIUM IV 40 MG VIAL IV PUSH (13:19)
--- NOTE | 2024-03-22 16:21 | PM.DS ---
DS: Admitting Diagnosis Discharge Date 03/22/24 Admitting Diagnosis Abdominal pain DS: Discharge Diagnosis Discharge Diagnosis (1) Abdominal pain: Code(s): R10.9 - Unspecified abdominal pain Status: Acute (2) Type 1 diabetes: Code(s): E10.9 - Type 1 diabetes mellitus without complications Status: Chronic (3) Cannabis use disorder: Code(s): F12.90 - Cannabis use, unspecified, uncomplicated Status: Acute (4) End stage renal disease on dialysis: Code(s): N18.6 - End stage renal disease; Z99.2 - Dependence on renal dialysis Status: Acute (5) Arteriovenous fistula for hemodialysis in place, primary: Code(s): Z99.2 - Dependence on renal dialysis Status: Acute DS: Summary Hospital Course Reason for hospitalization: 38yo female with insulin-dependent diabetes and a history of gastroparesis presented the emergency room with a 2 week history of abdominal pain is a deep aching pain in the right upper abdomen.?Please see H&P for details. Hospital Course: Patient presented with complaints of abominal pain. CT abdomen pelvis revealed distended gallbladder with thickened wall but no other abnormalities noted. Ultrasound right upper quadrant showing distended gallbladder but no other abnormalities noted. LFTs were unremarkable while lipase was mildly elevated at 671. Lipase normalized on repeat. Beta hCG was? negative. HIDA 03/21 showed low GB EF consistent with GB dysfunction and/or chronic cholecystitis. She was able to tolerate oral intake and noted that the pain is worse with 'greasy foods'. General surgery was consulted and they recommended a low-fat diet and follow up as an outpatient to discuss elective laparoscopic cholecystectomy with Dr. Putnam after discharge. Nephrology was consulted and patient continued hemodialysis here without issuse. Her glucose was well controlled as well. She overall did well and was able to be discharged home on 03/22/24 Status at Discharge Cognitive/behavioral status at discharge: stable Time Spent with Patient Time attestation: Total time spent providing and/or coordinating discharge services: 35 minutes Time spent: Greater than 30 minutes Exam Narrative: AF 97.4 167/87 83 18 100% ra Gen - NARD sitting up in chair playing a game on her phone Chest - CTA bilaterally, nml RR CV - RRR S1/S2 Abd - Soft, NT/ND, Positive BS Ext - No pedal edema. Thrill and bruit left upper extremity Psych - Nml mood and affect Skin - Warm and dry DS: Data Data Completed and Pending Labs on day of discharge: Labs from last 24 hours 03/22/24 03/22/24 03/22/24 12:38 07:41 06:39 WBC RBC Hgb Hct MCV MCH MCHC RDW Plt Count MPV Sodium Potassium Chloride Carbon Dioxide Anion Gap BUN Creatinine Estim Creat Clear Calc Estimated GFR Glucose POC Capillary Glucose 155 H 133 H Calcium Nasal MRSA (PCR) Not detected 03/22/24 03/21/24 03/21/24 06:11 20:30 16:26 WBC 4.8 RBC 3.51 L Hgb 10.3 L Hct 31.7 L MCV 90.3 D MCH 29.3 MCHC 32.5 RDW 15.6 H Plt Count 198 D MPV 10.8 H Sodium 129 L Potassium 5.6 H Chloride 92 L Carbon Dioxide 23 Anion Gap 14 H BUN 74 H D Creatinine 10.20 H Estim Creat Clear Calc 7 Estimated GFR 5 L Glucose 165 H POC Capillary Glucose 177 H 271 H Calcium 8.3 L Nasal MRSA (PCR) Discharge Plan Discharge Attending physician on discharge: Milan Chauhan Consulting providers: Chelsie Basilio; Carlos Putnam Discharging Clinician: Milan Chauhan Anticipated Discharge Date/Time: 03/22/24 16:30 Patient Disposition: Home, Self-Care Activity: as tolerated Diet: diabetic and low fat Discharge Instructions: Call the office to schedule an appointment with Dr. Putnam to discuss options for scheduling a cholecystectomy, marcia
[2024-03-22 16:38] LABS: Glucose Point of Care 212 mg/dl (65-105)
== END 2024-03-22 17:15 | disposition home or self-care (01) ==
LOC: ANHED 07:09 → ANH3MEDSUR 03-22 09:10
PROVIDERS: Family Medicine; Internal Medicine; Internal Medicine Nephrology; Admitting Provider Internal Medicine; Emergency Provider Emergency Medicine; Visit Provider Internal Medicine
DX: K81.1 Chronic cholecystitis (principal); I12.0 Hypertensive chronic kidney disease with stage 5 chronic kidney disease or end stage renal disease; E10.22 Type 1 diabetes mellitus with diabetic chronic kidney disease; N18.6 End stage renal disease; Z99.2 Dependence on renal dialysis; D63.1 Anemia in chronic kidney disease; F17.210 Nicotine dependence, cigarettes, uncomplicated; F12.90 Cannabis use, unspecified, uncomplicated
CPT/HCPCS: 36415; 74177; 76705; 78227; 80048; 80053; 82948; 83690; 83735; 84100; 84703; 85025; 85027; 85055; 86140; 86706; 87340; 87641; 96361; 96374; 96375; 96376; 99285; A9270; A9537; C9113; G0257; G0378; J0360; J1644; J1815; J2270; J2765; J2805; J7030; J7040; Q5105; Q9967

== ENCOUNTER 2024-04-02 12:04 | Outpatient (RCR) | payer MEDICARE, MEDICAID, SELFPAY ==
[2024-04-02 13:21] LABS: INR 1.1; Prothrombin Time 14.6 Seconds (11.1-14.7)
[2024-04-02 13:22] LABS: Partial Thromboplastin Time 28.4 Seconds (22.3-36.8)
== END 2024-04-02 12:05 | disposition home or self-care (01) ==
LOC: ANHLAB 12:04
PROVIDERS: Referring Provider Anesthesiology; Visit Provider Surgery
DX: K81.1 Chronic cholecystitis (principal); N18.6 End stage renal disease
CPT/HCPCS: 36415; 85610; 85730; 86850; 86860; 86870; 86880; 86900; 86901; 86902; 86922

== ENCOUNTER → 2024-04-05 00:54 | Day surgery (SDC) | payer MEDICARE, MEDICAID, SELFPAY ==
[2024-04-01 15:03] VITALS: BMI 29.4
--- NOTE | 2024-04-01 15:10 | PC.NURSE ---
Report to the Outpatient Waiting Room, entrance under the green pavilion located off [facility], at time _1000_ on date _[id number]_. Planned Procedure Time: _1200_. Time changes happen often and if your time is changed the preop area will call you the afternoon before. - You and your visitor will be asked to self-screen and do not enter if you have any COVID symptoms. - A mask is optional within the hospital at this time. Patients may have clear liquids (water, carbonated beverages, clear teas, apple juice) until 3 hours prior to surgery with a maximum of 20 ounces. - No food from midnight until time of surgery Take the following medications with a SIP of water the morning of surgery: ___Amlodipine and Carvidilol DO NOT STOP ANY OF YOUR OTHER PRESCRIPTION MEDICATIONS PRIOR TO SURGERY ?EXCEPT THE FOLLOWING Medications to discontinue per physician __Vitamins Date to take last [id number]__[id number] Please no make-up, nail tajik, hairspray, perfume, deodorant, or body powder the day of surgery. No jewelry (including any body piercings) or valuables the day of surgery, leave them at home. Please take a shower or bath the night before, or the morning of, surgery with an antibacterial soap. Wear comfortable, loose fitting clothing. - Jewelry must be removed prior to entering the operating room. Rings and piercings that are not removed may be cut off. - The hospital will not accept responsibility for valuables. - Please leave all valuables, including medications, at home the day of surgery. If you are going home after surgery, a licensed mechanic welder truck driver must drive you home. - NO public transportation without another adult if you receive anesthesia. - We recommend that an adult stay with you for 24 hours following discharge. - We also recommend that you do not drive, make important decision, drink alcoholic beverages, or take any drugs that were not prescribed by your health care provider for at least 24 hours after your discharge time. Follow any additional instructions given to you from your surgeon. If you or anyone in your household have experienced Covid symptoms in the past week, please notify your surgeon or the nurse liaison at the phone number below for possible testing. Telephone instructions given to _[place]__and asked if any additional questions and then verbalized understanding. Patient advised to call surgeon office or pre surgery nurse liaison [phone] if any additional questions.
[2024-04-05] VITALS (11 sets, daily range): BP systolic 82–169; BP diastolic 44–78; PULSE 62–87; RESP 11–20; TEMP 36.1–36.2; O2SAT 92–100
[2024-04-05] MEDS: INDOCYANINE GREEN 25 MG VIAL WITH DILUENT 3.75 MG IV PUSH (11:00)
[2024-04-05] MEDS: SODIUM CHLORIDE 0.9% IV 500 ML 30 ML IV CONT (11:00)
[2024-04-05] MEDS: ACETAMINOPHEN 500 MG TABLET 1000 MG PO (11:00)
[2024-04-05 11:02] LABS: Glucose Point of Care 135 mg/dl (65-105)
[2024-04-05 11:17] LABS: Amylase 93 U/L (30-110)
[2024-04-05 11:34] LABS: Beta HCG Quantitative < 2.39 mIU/ML
--- NOTE | 2024-04-05 11:43 | WPDHPUPDATE1 ---
History and Physical Update Update Date/Time: 04/05/24 11:43 History and Physical has been reviewed, including an updated exam of the patient. There are NO changes in the patient's condition. Risks, benefits, and alternatives have been discussed and questions answered. Patient agrees to proceed with procedure.
[2024-04-05 12:02] LABS: Anion Gap 14 mmol/L (4-12); Blood Urea Nitrogen 46 mg/dL (7-17); Calcium 8.2 mg/dL (8.4-10.2); Carbon Dioxide 30 mmol/L (22-30); Chloride 93 mmol/L (98-107); Estimated CRCL calculation 10 ml/min; Estimated Glomerular Filt Rate 8; Glucose 137 mg/dL (65-110); Potassium 4.8 mmol/L (3.4-5.0); Sodium 137 mmol/L (137-145)
[2024-04-05] MEDS: ceFAZolin 2 GM/D5W 50 ML 2 GM/50 ML BAG IVPB (12:08)
[2024-04-05] MEDS: BUPIVACAINE/EPINEPHRINE 0.5% 50 ML VIAL 30 ML INFILTRATE (12:33)
--- NOTE | 2024-04-05 13:40 | W.PM.PROC2 ---
Procedure Note - Detailed Date of Procedure 04/05/24 Pre-op Diagnosis Biliary Dyskinesia Post-op Diagnosis Same Procedure Performed 1. Laparoscopic cholecystectomy with cholangiography, da Robin assisted 2. Interpretation of cholangiography Surgeon Carlos Putnam, DO Anesthesia General and Local (0.5% bupivacaine) Indications This is a 38-year-old woman who has been experiencing right upper quadrant pain for the past several weeks. She was recently hospitalized for intractable nausea and vomiting. She has a history of gastroparesis but since she was having right upper quadrant pain along with this, further workup was done. She had imaging that showed some gallbladder wall thickening that could be a sign of chronic cholecystitis. She then had a HIDA scan which showed a low gallbladder ejection fraction consistent with biliary dyskinesia or chronic cholecystitis. Discussions were made with the patient about treatment options and decision was made to proceed with robotic assisted laparoscopic cholecystectomy with cholangiography. Findings Cholecystectomy with cholangiography was performed. The patient received 1.5 mL of indocyanine green intravenously in preop. The refer at fluorescence imaging was then utilized intraoperatively to identify the biliary anatomy. The cystic duct was slightly wide but began tapering down to normal. This appeared far enough away from the common bile duct to safely remove the gallbladder at this point. A critical view safety was also identified visualizing the cystic duct running directly into the neck of the gallbladder and the cystic artery running directly into the wall the gallbladder. The gallbladder was removed and sent to the lab pathology. Description of Procedure Procedure as well as risks, benefits, and alternatives were discussed with the patient. Written consent was obtained and placed in chart prior to procedure. 1.5 mL of indocyanine green was given intravenously in preop. Patient was brought back to surgical suite. She was placed supine on operating table. Time-out was done to confirm patient and procedure. She was then intubated by the anesthesia department. Her abdomen was then prepped and draped in sterile fashion using chlorhexidine prep. 0.5% bupivacaine was infiltrated locally at the site of each port placement. An 8 mm incision was made just superior to the umbilicus and a 5 mm Optiview trocar was then advanced through the abdominal layers under direct visualization. Once inside the abdominal cavity, carbon dioxide insufflation was used to create a pneumoperitoneum. The camera was inserted and the abdomen was inspected. No mediated abnormalities were noted. The patient was placed in 10? reverse Trendelenburg position and rotated 10? to the left. Two 8 mm incisions were made in the right lateral abdomen and 2 8 mm trocars were inserted under direct visualization. A 12 mm incision was made in the left lateral abdomen and a 12 mm trocar was inserted under direct visualization. The 5 mm Optiview trocar was then removed and another 8 mm trocar was inserted in its place. The robotic arms were then brought up to the patient's bedside and secured to each port. The camera and instruments were inserted. I then moved over to the robotic consult to take control of the camera and instruments. The gallbladder was grasped at the fundus and retracted cephalad. The infundibulum of the gallbladder was then grasped and retracted laterally. Hook electrocautery was then used to carefully dissect around the neck of the gallbladder. The cystic duct was identified and a window was created around it using hook electrocautery. The cystic artery was also identified and a window was created behind it using hook electrocautery. Critical view of safety was identified visualizing the cystic duct running directly into the neck of the gallbladder and the cystic artery running directly into the wall the gallbladder. The camer
[2024-04-05 13:59] LABS: Glucose Point of Care 214 mg/dl (65-105)
[2024-04-05] MEDS: ONDANSETRON INJ 4 MG/2 ML VIAL IV PUSH (14:23)
--- NOTE | 2024-04-05 15:11 | WPDANESEPPF ---
Anes - Initial Pre Proc Eval Procedure: Operation Date: 04/05/24 12:00 Proposed Procedures p Laparoscopic Cholecystectomy, Davinci Assisted - Carlos Putnam DO Date/Time: 04/05/24 15:11 Surgeon: Carlos Putnam DO Pre Op Diagnosis: Biliary Dyskinesia Patient Data Age: 38 Gender: F Height: 1.68 m Weight: 76.8 kg Last Vital Signs Temp 97.0 F L 04/05/24 13:36 Pulse 70 04/05/24 14:45 Resp 18 04/05/24 14:45 BP 169/55 H 04/05/24 14:45 Pulse Ox 98 04/05/24 14:35 O2 Del Method Room Air 04/05/24 14:45 O2 Flow Rate 8 04/05/24 13:50 Allergies Allergy/AdvReac Type Severity Reaction Status Date / Time No Known Allergies Allergy Verified 04/05/24 12:32 Home Medications Medication Instructions Recorded Confirmed Type trazodone 100 mg tablet 100 mg PO QHS PRN sleep #30 tabs 02/27/24 04/01/24 Rx amlodipine 10 mg tablet 10 mg PO DAILY 03/21/24 04/05/24 History atorvastatin 10 mg tablet 10 mg PO DAILY 03/21/24 04/01/24 History carvedilol 25 mg tablet 25 mg PO BID 03/21/24 04/05/24 History gabapentin 400 mg capsule 400 mg PO TID 03/21/24 04/01/24 History losartan 100 mg tablet 100 mg PO DAILY 03/21/24 04/05/24 History pantoprazole 40 mg tablet,delayed 40 mg PO DAILY 03/21/24 04/01/24 History release calcium acetate(phosphat bind) 667 1,334 mg PO TID 03/22/24 04/01/24 History mg capsule ferrous sulfate 325 mg (65 mg 325 mg PO DAILY #10 tabs 03/22/24 04/01/24 Rx iron) tablet insulin aspart U-100 100 unit/mL 3 unit (0.03 mL) subcut TIDWM #15 03/22/24 04/01/24 Rx (3 mL) subcutaneous pen (Novolog mL FlexPen U-100 Insulin aspart) insulin glargine 100 unit/mL (3 20 unit (0.2 mL) subcut HS #3 mL 03/22/24 04/01/24 Rx mL) subcutaneous pen hydrocodone 5 mg-acetaminophen 325 1 tablet PO Q4H PRN pain #10 tabs 04/05/24 Rx mg tablet Laboratory Tests 04/05/24 04/05/24 04/05/24 10:53 10:57 13:56 Sodium 137 mmol/L (137-145) Potassium 4.8 mmol/L (3.4-5.0) Chloride 93 L mmol/L (98-107) Carbon Dioxide 30 mmol/L (22-30) Anion Gap 14 H mmol/L (4-12) BUN 46 H D mg/dL (7-17) Creatinine 6.90 H mg/dL (0.7-1.0) Estim Creat Clear Calc 10 ml/min Estimated GFR 8 L (59 - ) Glucose 137 H mg/dL (65-110) POC Capillary Glucose 135 H mg/dl 214 H mg/dl (65-105) (65-105) Calcium 8.2 L mg/dL (8.4-10.2) Amylase 93 U/L (30-110) Beta HCG, Quant < 2.39 mIU/ML Patient hx anesthesia problems: none Family hx anesthesia problems: none Results Review: All pre-operative results and documents have been reviewed as part of the pre-operative evaluation. [facility] Past Medical History Medical History (Updated 04/01/24 @ 12:19 by Marlen Caraballo [facility]) Anemia Arteriovenous fistula for hemodialysis in place, primary Cannabis use disorder CHF (congestive heart failure) End stage renal disease on dialysis Gastroparesis GERD (gastroesophageal reflux disease) Hypertension Peripheral neuropathy PUD (peptic ulcer disease) Reactive airway disease Type 1 diabetes Surgical History Surgical History History of appendectomy S/P arteriovenous (AV) fistula creation Family History Family History Father No problems noted. Social History Social History Smoking packs per day: 0.5 Smoking cigarettes per day: 10.0 Years smoked: 22 Smoking pack-years: 11.00 Smoking status: Current every day smoker Tobacco type: cigarettes Alcohol intake: never Drinks per week: 0 Substance use: current Substance use type: marijuana Other substance usage details: not very often Last use: Tara Do You Feel Safe in your Home?: Yes Lack of Transportation: YES [place]
[2024-04-05] MEDS: diphenhydrAMINE HCl INJ 50 MG/ML VIAL 12.5 MG IV PUSH (15:15)
[2024-04-05] MEDS: oxyCODONE HCL (*CRX) 5 MG TAB IR PO (15:30)
--- NOTE | 2024-04-05 16:06 | SUR.PHASEII ---
RN offered a bag of ice to patient and she refused at this time.
== END | disposition home or self-care (01) ==
PROVIDERS: Anesthesiology; Visit Provider Surgery
PROC: 0FT44ZZ Resection of Gallbladder, Percutaneous Endoscopic Approach (ICD-10-PCS; CPT 47562; principal; 2024-04-05 12:00)
DX: K80.10 Calculus of gallbladder with chronic cholecystitis without obstruction (principal); I13.2 Hypertensive heart and chronic kidney disease with heart failure and with stage 5 chronic kidney disease, or end stage renal disease; I50.9 Heart failure, unspecified; E10.22 Type 1 diabetes mellitus with diabetic chronic kidney disease; N18.6 End stage renal disease; Z99.2 Dependence on renal dialysis; E10.43 Type 1 diabetes mellitus with diabetic autonomic (poly)neuropathy; K31.84 Gastroparesis; E10.51 Type 1 diabetes mellitus with diabetic peripheral angiopathy without gangrene; D64.9 Anemia, unspecified; J45.909 Unspecified asthma, uncomplicated; E10.42 Type 1 diabetes mellitus with diabetic polyneuropathy; K21.9 Gastro-esophageal reflux disease without esophagitis; Z79.4 Long term (current) use of insulin; F12.90 Cannabis use, unspecified, uncomplicated
CPT/HCPCS: 47563; 74300; 36415; 80048; 82150; 82948; 84702; 88304; A9270; J0690; J1100; J1200; J2405; J2704; J3010; J7030; J7040

== ENCOUNTER 2024-09-20 08:10 | Emergency (ER) | payer MEDICARE, MEDICAID, SELFPAY ==
[2024-09-20 08:19] VITALS: BP 221/96; PULSE 99; RESP 20; TEMP 36.4; O2SAT 97
[2024-09-20 08:30] LABS: Basophils Absolute Auto 0.1 K/mm3 (0.0-0.1); Basophils Percent Auto 0.9 % (0.2-1.2); Eosinophils Absolute Auto 0.4 K/mm3 (0-0.3); Hematocrit 39.4 % (37.0-47.0); Hemoglobin 13.2 g/dL (12.0-15.0); Immature Granulocyte Absolute 0.01 K/mm3 (0.00-0.031); Immature Granulocyte Percent A 0.1 % (0-0.5); Lymphocytes Absolute Auto 0.99 K/mm3 (0.9-3.2); Lymphocytes Percent Auto 14.1 % (18.3-44.2); Mean Corpuscular HGB Conc 33.5 g/dl (32-36); Mean Corpuscular Hemoglobin 30.6 pg (26-34); Mean Corpuscular Volume 91.4 fl (80-100); Monocytes Absolute Auto 0.3 K/mm3 (0.1-0.6); Monocytes Percent Auto 4.8 % (2.6-8.5); Neutrophils Absolute Auto 5.2 K/mm3 (1.3-6.7); Neutrophils Percent Auto 74.1 % (45.5-73.1); Platelet Count Result 193 k/mm3 (150-375); Red Blood Count 4.31 M/mm3 (4.2-5.4); Red Cell Distribution Width 14.8 % (11.5-14.5)
[2024-09-20 08:31] VITALS: BP 207/106; PULSE 88; RESP 16; TEMP 36.6; O2SAT 93
[2024-09-20 08:45] LABS: Alanine Aminotransferase 10 U/L (6-35); Albumin Level 4.4 g/dL (3.5-5.1); Alkaline Phosphatase 132 U/L (38-126); Anion Gap 22 mmol/L (4-12); Aspartate Amino Transferase 20 U/L (14-36); Bilirubin,Total 0.9 mg/dL (0.2-1.3); Blood Urea Nitrogen 79 mg/dL (7-17); Calcium 7.5 mg/dL (8.4-10.2); Carbon Dioxide 25 mmol/L (22-30); Chloride 91 mmol/L (98-107); Estimated CRCL calculation 7 ml/min; Estimated Glomerular Filt Rate 4; Glucose 186 mg/dL (65-110); Lipase 38 U/L (23-300); Potassium 5.9 mmol/L (3.4-5.0); Sodium 138 mmol/L (137-145)
--- NOTE | 2024-09-20 08:50 | ED.NAVMDI ---
HPI - Nausea/Vomiting/Diarrhea General Chief complaint: Nausea/Vomiting/Diarrhea Stated complaint: body aches, vomiting Time Seen by Provider: 09/20/24 08:14 History of Present Illness HPI Narrative: patient with several days of nausea, vomiting, body aches, does have a history of gastroparesis and ESRD on dialysis Thursday with last dialysis session on Thursday. Ran out of her Reglan. Related Data Home Medications Medication Instructions Recorded Confirmed amlodipine 10 mg tablet 10 mg PO DAILY 03/21/24 05/09/24 atorvastatin 10 mg tablet 10 mg PO DAILY 03/21/24 05/09/24 carvedilol 25 mg tablet 25 mg PO BID 03/21/24 05/09/24 gabapentin 400 mg capsule 400 mg PO TID 03/21/24 05/09/24 losartan 100 mg tablet 100 mg PO DAILY 03/21/24 05/09/24 pantoprazole 40 mg tablet,delayed 40 mg PO DAILY 03/21/24 05/09/24 release calcium acetate(phosphat bind) 667 1,334 mg PO TID 03/22/24 05/09/24 mg capsule Allergies Allergy/AdvReac Type Severity Reaction Status Date / Time No Known Allergies Allergy Verified 09/20/24 08:28 Review of Systems Review of Systems: All systems reviewed & are unremarkable except as noted in HPI and below PMFSH Past Medical History Medical History (Updated 09/20/24 @ 10:15 by Meagan Canchola MD) Anemia Arteriovenous fistula for hemodialysis in place, primary Cannabis use disorder CHF (congestive heart failure) End stage renal disease on dialysis Gastroparesis GERD (gastroesophageal reflux disease) Hypertension Peripheral neuropathy PUD (peptic ulcer disease) Reactive airway disease Type 1 diabetes Surgical History Surgical History (Updated 05/05/24 @ 14:29 by SN Itz) History of appendectomy Hx laparoscopic cholecystectomy lap robina, Da Robin assisted 04/05/24 S/P arteriovenous (AV) fistula creation Family History Family History Father No problems noted. Social History Social History Smoking packs per day: 0.5 Smoking cigarettes per day: 10.0 Years smoked: 22 Smoking pack-years: 11.00 Smoking status: Current every day smoker Tobacco type: cigarettes Alcohol intake: never Drinks per week: 0 Substance use: current Substance use type: marijuana Other substance usage details: not very often Last use: February Do You Feel Safe in your Home?: Yes Lack of Transportation: YES Lack of Food: Never True Current Housing: I Have Housing Concerned About Future Housing: No Difficulty Paying Gas/Electric Bills: No Difficulty Paying for Meds: No Currently Unemployed: No Education: High School Diploma/GED Difficulty w/ Childcare or Family Care: No Living arrangements: with family Spiritual care concerns: No Exam Narrative: EXAMINATION OF ORGAN SYSTEMS/BODY AREAS: Constitutional: Vital signs per nursing GENERAL:[No acute distress, non-toxic appearing.] HEAD: Normal with no signs of head trauma. EYES: EOMI, conjunctiva normal ENT: Hearing grossly intact LUNGS: Nonlabored breathing. HEART: [Regular rate and rhythm] ABD: [Soft], [nontender to palpation] EXT: left upper extremity fistula with normal thrill SKIN: [No rashes or lesions.] NEURO: [Alert and oriented x 3. No gross focal sensory or strength deficits.] PSYCH: Normal affect Course Vital Signs Vital signs: Vital Signs Temperature 97.6 F 09/20/24 08:19 Pulse Rate 99 09/20/24 08:19 Respiratory Rate 20 09/20/24 08:19 Blood Pressure 221/96 H 09/20/24 08:19 Pulse Oximetry 97 09/20/24 08:19 Oxygen Delivery Room Air 09/20/24 08:19 Temperature 97.8 F 09/20/24 10:41 Pulse Rate 89 09/20/24 10:41 Respiratory Rate 18 09/20/24 10:41 Blood Pressure 191/103 H 09/20/24 10:41 Pulse Oximetry 98 09/20/24 10:41 Oxygen Delivery Room Air 09/20/24 08:19 MDM - Nausea/Vomiting/Diarrhea MDM Narrative Medical decision making narrative: 39-year-old female with history of gastroparesis and ESRD on dialysis missed dialysis session presents here with nausea vomiting. She has been out of her Reglan, last session was 4 days ago. for given dose of Reglan here after which her nausea has resolved, is feeling better, potassium is 5.9 however this appears to be around her baseline. Discussed with airways control specialist here who recommends dose of Lokelma and encouraging patient to make sure she does not miss her dialysis session on . I will refill her Reglan, she is also given strict return precautions. Patient agreeable to this plan. Lab Data 09/20/24 08:22 09/20/24 08:22 Labs: Lab Results 09/20/24 09/20/24 Range/Units 08:21 08:22 WBC 7.0 (4.5-10.0) K/mm3 RBC 4.31 (4.2-5.4) M/mm3 Hgb 13.2 (12.0-15.0) g/dL Hct 39.4 (37.0-47.0) % MCV 91.4 (80-100) fl MCH 30.6 (26-34) pg MCHC 33.5 (32-36) g/dl RDW 14.8 H (11.5-14.5) % Plt Count 193 (150-375) k/mm3 MPV 10.0 (7.4-10.4) fl Immature Gran % (Auto) 0.1 (0-0.5) % Neut % (Auto) 74.1 H (45.5-73.1) % Lymph % (Auto) 14.1 L (18.3-44.2) % [place] % (Auto) 4.8 (2.6-8.5) % Eos % (Auto) 6.0 H (0-4.4) % Baso % (Auto) 0.9 (0.2-1.2) % Lymph # (Auto) 0.99 (0.9-3.2) K/mm3 [place] # (Auto) 0.3 (0.1-0.6) K/mm3 Eos # (Auto) 0.4 H (0-0.3) K/mm3 Baso # (Auto) 0.1 (0.0-0.1) K/mm3 Abs Immat Gran (auto) 0.01 (0.00-0.031) K/mm3 Absolute Neuts (auto) 5.2 (1.3-6.7) K/mm3 Absolute Nucleated RBC 0.000 (0.0-0.012) K/mm3 Nucleated RBC % 0.0 (0.0-0.2) % Sodium 138 (137-145) mmol/L Potassium 5.9 H (3.4-5.0) mmol/L Chloride 91 L (98-107) mmol/L Carbon Dioxide 25 (22-30) mmol/L Anion Gap 22 H (4-12) mmol/L BUN 79 H D (7-17) mg/dL Creatinine 11.90 H (0.7-1.0) mg/dL Estim Creat Clear Calc 7 ml/min Estimated GFR 4 L (59 - ) Glucose 186 H (65-110) mg/dL Calcium 7.5 L (8.4-10.2) mg/dL Total Bilirubin 0.9 (0.2-1.3) mg/dL AST 20 (14-36) U/L ALT 10 (6-35) U/L Alkaline Phosphatase 132 H (38-126) U/L Total Protein 9.0 H (6.3-8.2) g/dL Albumin 4.4 (3.5-5.1) g/dL Lipase 38 (23-300) U/L Influenza A (RT-PCR) Negative (Negative) Influenza B (RT-PCR) Negative (Negative) RSV (RT-PCR) Negative (Negative) SARS-CoV-2 RNA (RT-PCR) Negative (Negative) Discharge Plan Discharge Clinical Impression: Gastroparesis, End stage renal disease Patient Disposition: Home, Self-Care Condition: Stable Instructions: Acute Nausea and Vomiting (ED) Additional Instructions: please make sure that you get in for your dialysis session on . Take the nausea medicine as prescribed, and come back to the emergency room if your symptoms worsen. Prescriptions: New metoclopramide HCl [Reglan] 10 mg tablet 10 mg PO Q6H PRN (Reason: nausea and vomiting) Qty: 20 0RF No Action carvedilol 25 mg tablet 25 mg PO BID atorvastatin 10 mg tablet 10 mg PO DAILY gabapentin 400 mg capsule 400 mg PO TID amlodipine 10 mg tablet 10 mg PO DAILY pantoprazole 40 mg tablet,delayed release (DR/EC) 40 mg PO DAILY losartan 100 mg tablet 100 mg PO DAILY calcium acetate(phosphat bind) 667 mg capsule 1,334 mg PO TID ferrous sulfate 325 mg (65 mg iron) tablet 325 mg PO DAILY Qty: 10 0RF insulin aspart U-100 [Novolog FlexPen U-100 Insulin] 100 unit/mL (3 mL) insulin pen 3 unit SUBCUT TIDWM Qty: 15 0RF insulin glargine 100 unit/mL (3 mL) insulin pen 20 unit SUBCUT HS Qty: 3 0RF trazodone 100 mg tablet 100 mg PO QHS PRN (Reason: sleep) Qty: 30 5RF cholestyramine-aspartame 4 gram powder in packet See Rx Instructions .ROUTE .COMPLEX Qty: 180 3RF Dose Instruction: MIX AND TAKE 4 G BY MOUTH TWICE A DAY NEEDED FOR DIARRHEA ADMINISTER WITH MEAL AVOID OTHER MEDS WITHIN 1 HOUR BEFORE OR 4-6 HOURS AFTER DOSE Rx Instructions: MIX AND TAKE 4 G BY MOUTH TWICE A DAY NEEDED FOR DIARRHEA ADMINISTER WITH MEAL AVOID OTHER MEDS WITHIN 1 HOUR BEFORE OR 4-6 HOURS AFTER DOSE Follow-up/Referrals: UNKNOWN,DOCTOR [Primary Care Provider] -
[2024-09-20] MEDS: diphenhydrAMINE HCl INJ 50 MG/ML VIAL 25 MG IV PUSH (08:56)
[2024-09-20] MEDS: METOCLOPRAMIDE HCL INJ 10 MG/2 ML VIAL IV PUSH (08:56)
[2024-09-20 09:01] VITALS: BP 192/101; PULSE 90; RESP 20; O2SAT 98
--- NOTE | 2024-09-20 09:01 | PC.NURSE ---
Pt refusing Tylenol Dr. Canchola informed.
[2024-09-20 09:02] VITALS: BP 192/101; PULSE 92; RESP 20; O2SAT 96
[2024-09-20 09:06] LABS: Influenza A QL RT-PCR Negative (Negative); Influenza B QL RT-PCR Negative (Negative); RSV RNA, RT-PCR Negative (Negative); SARS-CoV-2 RNA PCR Negative (Negative)
[2024-09-20 10:01] VITALS: BP 189/103; PULSE 87; RESP 16; O2SAT 92
[2024-09-20] MEDS: SODIUM ZIRCONIUM CYCLOSILICATE 10 GM POWD.PACK PO (10:34)
[2024-09-20 10:41] VITALS: BP 191/103; PULSE 89; RESP 18; TEMP 36.6; O2SAT 98
== END 2024-09-20 10:46 | disposition home or self-care (01) ==
LOC: ANHED 08:25
PROVIDERS: Emergency Provider Emergency Medicine
DX: E10.43 Type 1 diabetes mellitus with diabetic autonomic (poly)neuropathy (principal); K21.9 Gastro-esophageal reflux disease without esophagitis; Z20.822 Contact with and (suspected) exposure to COVID-19; E10.22 Type 1 diabetes mellitus with diabetic chronic kidney disease; I13.2 Hypertensive heart and chronic kidney disease with heart failure and with stage 5 chronic kidney disease, or end stage renal disease; I50.9 Heart failure, unspecified; N18.6 End stage renal disease; Z99.2 Dependence on renal dialysis; E10.42 Type 1 diabetes mellitus with diabetic polyneuropathy; K31.84 Gastroparesis; Z87.11 Personal history of peptic ulcer disease; Z86.2 Personal history of diseases of the blood and blood-forming organs and certain disorders involving the immune mechanism; Z79.4 Long term (current) use of insulin; Z79.899 Other long term (current) drug therapy
CPT/HCPCS: 36415; 80053; 83690; 85025; 87637; 96374; 96375; 99284; A9270; J1200; J2765

== ENCOUNTER 2025-01-09 17:29 | Emergency (ER) | payer MEDICARE, MEDICAID, SELFPAY ==
--- NOTE | ~2025-01-09 | CT_ITS ---
EXAMINATION: CT abdomen pelvis wo con DATE: 01/09/2025 19:58 INDICATION: diffuse abd pain, n/v/d TECHNIQUE: Computed tomography (CT) of the abdomen and pelvis was performed without intravenous contr ast. Automated exposure control and iterative reconstruction technique were employed. The dose-length product was 594.85 mGy-cm. COMPARISON: 03/20/2024. FINDINGS: Lower thorax: Medial segmental right middle lobe groundglass opacity. Scattered bibasilar scarring an d patchy areas of groundglass opacity. Coronary artery desiccation. Mitral annulus calcification. Liver: Normal. Biliary/Gallbladder: Gallbladder is absent. No bile duct dilation. Pancreas: No mass or duct dilation. Spleen: Normal. Adrenals:No mass. Kidneys: Bilateral renal atrophy. GI tract: No small or large bowel dilation. Appendix not confidently identified. Mesentery/Peritoneum: No ascites, mass, or free air. Retroperitoneum: No mass. Atherosclerotic calcifications of intra-abdominal arterial vessels. Pelvis: Pelvic organs are within normal limits. Soft Tissues: Mild diffuse body wall edema. 1.5 cm nodular soft tissue density in the subcutaneous fa t of the left hip, possible small contusion or injection granuloma. Small uncomplicated fat-containin g umbilical hernia with superficial dermal thickening. Bones: No acute osseous finding. IMPRESSION: Mosaic attenuation in the lung bases, which can be seen with asthma, bronchiolitis obliterans, hypers ensitivity pneumonitis, and chronic thromboembolic disease. Small uncomplicated appearing fat-containing umbilical hernia with overlying skin thickening, correla te for findings of superficial cellulitis at the umbilicus. Mild body wall edema. 1.5 cm subcutaneous nodular opacity over the left hip may represent an injection granuloma or small h ematoma. Reviewed, dictated and finalized at location K. CING ASSOCIATE IMPRESSION: Mosaic attenuation in the lung bases, which can be seen with asthma, bronchioli tis obliterans, hypersensitivity pneumonitis, and chronic thromboembolic diseas e. Small uncomplicated appearing fat-containing umbilical hernia with overlying sk in thickening, correlate for findings of superficial cellulitis at the umbilicu s. Mild body wall edema. 1.5 cm subcutaneous nodular opacity over the left hip may represent an injectio n granuloma or small hematoma.
[2025-01-09 17:40] VITALS: BP 177/104; PULSE 84; RESP 18; TEMP 36.4; O2SAT 100
--- NOTE | 2025-01-09 17:44 | ED_ITS ---
HPI - Nausea/Vomiting/Diarrhea General Chief complaint: Nausea/Vomiting/Diarrhea <Liz Bermudez PA-C - Last Filed: 01/09/25 17:45> Stated complaint: nauseated <Liz Bermudez PA-C - Last Filed: 01/09/25 17:45> Time Seen by Provider: 01/10/25 00:45 <Liz Bermudez PA-C - Last Filed: 01/09/25 17:45> Focused HPI: 39-year-old female with history of hypertension, insulin- dependent diabetes, CKD on hemodialysis presents to emergency department for nausea, vomiting, diarrhea for several weeks. Patient states she has been taking [id number] anti diarrheal without improvement. She missed her dialysis appointment on because she was feeling sick but has been to the remainder of her appointments. Her tree thinner is Dr. Basilio. Dialysis schedule is ., ., Thursday. She does not make urine. She is reporting diffuse abdominal pain. Admits to history of cholecystectomy and appendectomy. No fevers. She has not been checking her blood sugar at home. GENERAL: Ill-appearing, well-nourished, and in no acute distress. HEAD: Normocephalic, atraumatic. CHEST: Clear to auscultation. ?No respiratory distress. HEART: Regular rate and rhythm.? NEURO: ?Alert and oriented x3. Patient screened in triage and initial orders placed.? ?Additional care and disposition to be based upon?diagnostic testing and treatment. <Liz Bermudez PA-C - Last Filed: 01/09/25 17:45> Focused HPI: 39-year-old female with history of hypertension, insulin- dependent diabetes, CKD on hemodialysis presents to emergency department for nausea, vomiting, diarrhea for several weeks. Patient states she has been taking [id number] anti diarrheal without improvement. She also reports a cough. She missed her dialysis appointment on because she was feeling sick but has been to the remainder of her appointments. Her tree thinner is Dr. Basilio. Dialysis schedule is ., ., Thursday. She does not make urine. She is reporting diffuse abdominal pain. Admits to history of cholecystectomy and appendectomy. No fevers. She has not been checking her blood sugar at home. GENERAL: Chronically ill-appearing, well-nourished, and in no acute distress. HEAD: Normocephalic, atraumatic. CHEST: Clear to auscultation. ?No respiratory distress. HEART: Regular rate and rhythm.? NEURO: ?Alert and oriented x3. Patient screened in triage and initial orders placed.? ?Additional care and disposition to be based upon?diagnostic testing and treatment. <María Kevin PA-C - Last Filed: 01/10/25 02:14> Related Data Home medications: Home Medications ?Medication ?Instructions ?Recorded ?Confirmed ?Last Taken ?Type amlodipine 10 mg tablet 10 mg PO DAILY 03/21/24 05/09/24 04/05/24 History atorvastatin 10 mg tablet 10 mg PO DAILY 03/21/24 05/09/24 Unknown History carvedilol 25 mg tablet 25 mg PO BID 03/21/24 05/09/24 04/05/24 History gabapentin 400 mg capsule 400 mg PO TID 03/21/24 05/09/24 Unknown History losartan 100 mg tablet 100 mg PO DAILY 03/21/24 05/09/24 04/05/24 History pantoprazole 40 mg tablet,delayed 40 mg PO DAILY 03/21/24 05/09/24 Unknown History release calcium acetate(phosphat bind) 667 1,334 mg PO TID 03/22/24 05/09/24 Unknown History mg capsule <Liz Bermudez PA-C - Last Filed: 01/09/25 17:45> Allergies/Adverse reactions: Allergies Allergy/AdvReac Type Severity Reaction Status Date / Time No Known Allergies Allergy Verified 09/20/24 08:28 <Liz Bermudez PA-C - Last Filed: 01/09/25 17:45> Review of Systems 2 Review of Systems: CONSTITUTIONAL: Denies fever RESPIRATORY: Reports cough GASTROINTESTINAL: Reports nausea, vomiting, and diarrhea. <SAM Ocampo Last Filed: 01/10/25 02:14> All systems reviewed & are unremarkable except as noted in HPI and below < SAM Ocampo Last Filed: 01/10/25 02:14> PMFSH Past Medical History Medical History: Medical History (Updated 01/10/25 @ 02:00 by María Kevin PA-C) Gastroparesis CHF (congestive heart failure) Anemia Reactive airway disease PUD (peptic ulcer disease) Peripheral neuropathy GERD (gastroesophageal reflux disease) Hypertension Cannabis use disorder Type 1 diabetes Arteriovenous fistula for hemodialysis in place, primary End stage renal disease on dialysis <Liz Bermudez PA-C - Last Filed: 01/09/25 17:45> Surgical History Surgical History: Surgical History (Updated 05/05/24 @ 14:29 by Shruthi Melton RN) Hx laparoscopic cholecystectomy lap robina, Da Robin assisted 04/05/24 S/P arteriovenous (AV) fistula creation History of appendectomy <Liz Bermudez PA-C - Last Filed: 01/09/25 17:45> Family History Family History: Family History Father No problems noted. <Liz Bermudez PA-C - Last Filed: 01/09/25 17:45> Social History Social History: Social History Smoking packs per day: 0.5 Smoking cigarettes per day: 10.0 Years smoked: 22 Smoking pack-years: 11.00 Smoking status: Current every day smoker Tobacco type: cigarettes Alcohol intake: never Drinks per week: 0 Substance use: current Substance use type: marijuana Other substance usage details: not very often Last use: Tara Do You Feel Safe in your Home?: Yes Lack of Transportation: YES Lack of Food: Never True Current Housing: I Have Housing Concerned About Future Housing: No Difficulty Paying Gas/Electric Bills: No Difficulty Paying for Meds: No Currently Unemployed: No Education: High School Diploma/GED Difficulty w/ Childcare or Family Care: No Living arrangements: with family Spiritual care concerns: No <Liz Bermudez PA-C - Last Filed: 01/09/25 17:45> Exam 2 Narrative: GENERAL: Chronically ill-appearing, well-nourished, and in no acute distress. HEAD: Normocephalic, atraumatic. EYES: EOMI. ENT: Nares clear, no rhinorrhea or epistaxis. Mucous membranes moist. CHEST: Clear to auscultation. No respiratory distress. No wheezes rales or rhonchi HEART: Regular rate and rhythm. No murmur heard. Normal peripheral pulses. ABDOMEN: Soft, nontender, nondistended, normal active bowel sounds. EXTREMITIES: Normal range of motion. No edema. SKIN: Warm, dry, no rash. NEURO: No focal deficits. Alert and oriented x3. PSYCH: Normal mood and affect <SAM Ocampo Last Filed: 01/10/25 02:14> Course Course Emergency Course: patient updated on her workup and agrees with plan of care. <SAM Ocampo Last Filed: 01/10/25 02:14> Vital Signs Vital signs: Vital Signs Temperature 97.6 F 01/09/25 17:40 Pulse Rate 84 01/09/25 17:40 Respiratory Rate 18 01/09/25 17:40 Blood Pressure 177/104 H 01/09/25 17:40 Pulse Oximetry 100 01/09/25 17:40 Oxygen Delivery Room Air 01/09/25 17:40 Temperature 97.6 F 01/09/25 17:40 Pulse Rate 84 01/09/25 17:40 Respiratory Rate 18 01/09/25 17:40 Blood Pressure 177/104 H 01/09/25 17:40 Pulse Oximetry 100 01/09/25 17:40 Oxygen Delivery Room Air 01/09/25 17:40 <SAM Tracy Last Filed: 01/09/25 17:45> Vital Signs Temperature 97.6 F 01/09/25 17:40 Pulse Rate 84 01/09/25 17:40 Respiratory Rate 18 01/09/25 17:40 Blood Pressure 177/104 H 01/09/25 17:40 Pulse Oximetry 100 01/09/25 17:40 Oxygen Delivery Room Air 01/09/25 17:40 Temperature 97.6 F 01/09/25 17:40 Pulse Rate 84 01/09/25 17:40 Respiratory Rate 18 01/09/25 17:40 Blood Pressure 177/104 H 01/09/25 17:40 Pulse Oximetry 100 01/09/25 17:40 Oxygen Delivery Room Air 01/09/25 17:40 <SAM Ocampo Last Filed: 01/10/25 02:14> MDM - Nausea/Vomiting/Diarrhea MDM Narrative Medical decision making narrative: Patient presents to the emergency department for nausea, vomiting and diarrhea. Ongoing over the last couple of weeks. Also reporting a cough. She is afebrile and nontoxic appearing. Cbc without leukocytosis. Metabolic panel with evidence of patient's end-stage renal disease. Patient does not make urine. test is negative. CT abdomen pelvis shows findings of possible pneumonia. Patient does endorse a productive cough. Will be started on oral antibiotics. Small uncomplicated fat containing umbilical hernia. Patient does not have any clinical findings of cellulitis. Mild body wall edema. Nodular density over the left hip. There are no overlying skin findings in this area either. Patient given antiemetic. Resting comfortably. patient updated on her workup and agrees with plan of care. She is to follow up with her tree thinner. She was given warnings to return to the ER <María Kevin PA-C - Last Filed: 01/10/25 02:14> Differential Diagnosis Differential diagnosis: Likely gastroenteritis, dehydration and other (ESRD, electrolyte derangement, pneumonia) <María Kevin PA-C - Last Filed: 01/10/25 02:14> Lab Data Attestation: I reviewed the patient's lab results. <María Kevin PA-C - Last Filed: 01/10/25 02:14> Result diagrams: 01/09/25 18:43 01/09/25 18:43 <SAM Tracy Last Filed: 01/09/25 17:45> Labs: Lab Results 01/09/25 Range/Units 18:43 WBC 4.4 L (4.5-10.0) K/mm3 RBC 4.14 L (4.2-5.4) M/mm3 Hgb 12.4 (12.0-15.0) g/dL Hct 37.5 (37.0-47.0) % MCV 90.6 (80-100) fl MCH 30.0 (26-34) pg MCHC 33.1 (32-36) g/dl RDW 15.4 H (11.5-14.5) % Plt Count 179 (150-375) k/mm3 MPV 10.6 H (7.4-10.4) fl Immature Gran % (Auto) 0.2 (0-0.5) % Neut % (Auto) 41.5 L (45.5-73.1) % Lymph % (Auto) 44.2 (18.3-44.2) % [place] % (Auto) 8.4 (2.6-8.5) % Eos % (Auto) 5.0 H (0-4.4) % Baso % (Auto) 0.7 (0.2-1.2) % Lymph # (Auto) 1.95 (0.9-3.2) K/mm3 [place] # (Auto) 0.4 (0.1-0.6) K/mm3 Eos # (Auto) 0.2 (0-0.3) K/mm3 Baso # (Auto) 0.0 (0.0-0.1) K/mm3 Abs Immat Gran (auto) 0.01 (0.00-0.031) K/mm3 Absolute Neuts (auto) 1.8 (1.3-6.7) K/mm3 Absolute Nucleated RBC 0.000 (0.0-0.012) K/mm3 Nucleated RBC % 0.0 (0.0-0.2) % Sodium 135 L (137-145) mmol/L Potassium 5.4 H (3.4-5.0) mmol/L Chloride 90 L (98-107) mmol/L Carbon Dioxide 26 (22-30) mmol/L Anion Gap 19 H (4-12) mmol/L BUN 73 H (7-17) mg/dL Creatinine 13.18 H (0.7-1.0) mg/dL Estim Creat Clear Calc Not Reportable Estimated GFR 3 L (59 - ) Glucose 110 (65-110) mg/dL Calcium 6.3 L (8.4-10.2) mg/dL Magnesium 1.8 (1.6-2.3) mg/dL Total Bilirubin 0.8 (0.2-1.3) mg/dL AST 30 (14-36) U/L ALT 15 (6-35) U/L Alkaline Phosphatase 145 H (38-126) U/L Total Protein 9.0 H (6.3-8.2) g/dL Albumin 4.4 (3.5-5.1) g/dL Lipase 120 (23-300) U/L Beta HCG, Quant < 2.39 mIU/ML <Liz Bermudez PA-C - Last Filed: 01/09/25 17:45> Lab Results 01/09/25 Range/Units 18:43 WBC 4.4 L (4.5-10.0) K/mm3 RBC 4.14 L (4.2-5.4) M/mm3 Hgb 12.4 (12.0-15.0) g/dL Hct 37.5 (37.0-47.0) % MCV 90.6 (80-100) fl MCH 30.0 (26-34) pg MCHC 33.1 (32-36) g/dl RDW 15.4 H (11.5-14.5) % Plt Count 179 (150-375) k/mm3 MPV 10.6 H (7.4-10.4) fl Immature Gran % (Auto) 0.2 (0-0.5) % Neut % (Auto) 41.5 L (45.5-73.1) % Lymph % (Auto) 44.2 (18.3-44.2) % [place] % (Auto) 8.4 (2.6-8.5) % Eos % (Auto) 5.0 H (0-4.4) % Baso % (Auto) 0.7 (0.2-1.2) % Lymph # (Auto) 1.95 (0.9-3.2) K/mm3 [place] # (Auto) 0.4 (0.1-0.6) K/mm3 Eos # (Auto) 0.2 (0-0.3) K/mm3 Baso # (Auto) 0.0 (0.0-0.1) K/mm3 Abs Immat Gran (auto) 0.01 (0.00-0.031) K/mm3 Absolute Neuts (auto) 1.8 (1.3-6.7) K/mm3 Absolute Nucleated RBC 0.000 (0.0-0.012) K/mm3 Nucleated RBC % 0.0 (0.0-0.2) % Sodium 135 L (137-145) mmol/L Potassium 5.4 H (3.4-5.0) mmol/L Chloride 90 L (98-107) mmol/L Carbon Dioxide 26 (22-30) mmol/L Anion Gap 19 H (4-12) mmol/L BUN 73 H (7-17) mg/dL Creatinine 13.18 H (0.7-1.0) mg/dL Estim Creat Clear Calc Not Reportable Estimated GFR 3 L (59 - ) Glucose 110 (65-110) mg/dL Calcium 6.3 L (8.4-10.2) mg/dL Magnesium 1.8 (1.6-2.3) mg/dL Total Bilirubin 0.8 (0.2-1.3) mg/dL AST 30 (14-36) U/L ALT 15 (6-35) U/L Alkaline Phosphatase 145 H (38-126) U/L Total Protein 9.0 H (6.3-8.2) g/dL Albumin 4.4 (3.5-5.1) g/dL Lipase 120 (23-300) U/L Beta HCG, Quant < 2.39 mIU/ML <María Kevin PA-C - Last Filed: 01/10/25 02:14> Imaging Data Radiologist's impression: ITS Impressions Abdomen/Pelvis CT 01/09/25 20:02 IMPRESSION: Mosaic attenuation in the lung bases, which can be seen with asthma, bronchiolitis obliterans, hypersensitivity pneumonitis, and chronic thromboembolic disease. Small uncomplicated appearing fat-containing umbilical hernia with overlying skin thickening, correlate for findings of superficial cellulitis at the umbilicus. Mild body wall edema. 1.5 cm subcutaneous nodular opacity over the left hip may represent an injection granuloma or small hematoma. <María Kevin PA-C - Last Filed: 01/10/25 02:14> Critical Care Time Critical Care Time Critical Care Time: No <María Kevin PA-C - Last Filed: 01/10/25 02:14> Discharge Plan Discharge Clinical Impression: End stage renal disease Pneumonia Qualifiers: Pneumonia type: due to unspecified organism Laterality: bilateral Lung location: unspecified part of lung Qualified Code(s): J18.9 - Pneumonia, unspecified organism <Liz Bermudez PA-C - Last Filed: 01/09/25 17:45> Patient Disposition: Home, Self-Care <SAM Tracy Last Filed: 01/09/25 17:45> Condition: Stable <SAM Tracy Last Filed: 01/09/25 17:45> Instructions: Antibiotic Form, Pneumonia (ED), End Stage Kidney Disease (ED) <SAM Tracy Last Filed: 01/09/25 17:45> Additional Instructions: Return to the emergency department if you experience fever, chest pain, shortness of breath, abdominal pain with nausea and vomiting, you are unable to keep down liquids or solids, or any other symptoms that are concerning to you. Take oral antibiotic as prescribed Follow up with your tree thinner <SAM Tracy Last Filed: 01/09/25 17:45> Patient Language: Persian <SAM Tracy Filed: 01/09/25 17:45> Prescriptions: New doxycycline hyclate 100 mg capsule 100 mg PO BID 5 Days Qty: 10 0RF metoclopramide HCl 10 mg tablet 10 mg PO Q6H PRN (Reason: nausea and vomiting) Qty: 14 0RF No Action metoclopramide HCl [Reglan] 10 mg tablet 10 mg PO Q6H PRN (Reason: nausea and vomiting) Qty: 20 0RF carvedilol 25 mg tablet 25 mg PO BID atorvastatin 10 mg tablet 10 mg PO DAILY gabapentin 400 mg capsule 400 mg PO TID amlodipine 10 mg tablet 10 mg PO DAILY pantoprazole 40 mg tablet,delayed release (DR/EC) 40 mg PO DAILY losartan 100 mg tablet 100 mg PO DAILY calcium acetate(phosphat bind) 667 mg capsule 1,334 mg PO TID ferrous sulfate 325 mg (65 mg iron) tablet 325 mg PO DAILY Qty: 10 0RF insulin aspart U-100 [Novolog FlexPen U-100 Insulin] 100 unit/mL (3 mL) insulin pen 3 unit SUBCUT TIDWM Qty: 15 0RF insulin glargine 100 unit/mL (3 mL) insulin pen 20 unit SUBCUT HS Qty: 3 0RF cholestyramine-aspartame 4 gram powder in packet See Rx Instructions .ROUTE .COMPLEX Qty: 180 3RF Dose Instruction: MIX AND TAKE 4 G BY MOUTH TWICE A DAY NEEDED FOR DIARRHEA ADMINISTER WITH MEAL AVOID OTHER MEDS WITHIN 1 HOUR BEFORE OR 4-6 HOURS AFTER DOSE Rx Instructions: MIX AND TAKE 4 G BY MOUTH TWICE A DAY NEEDED FOR DIARRHEA ADMINISTER WITH MEAL AVOID OTHER MEDS WITHIN 1 HOUR BEFORE OR 4-6 HOURS AFTER DOSE trazodone 100 mg tablet See Rx Instructions .ROUTE .COMPLEX Qty: 90 1RF Dose Instruction: TAKE 1 TABLET BY MOUTH EVERY DAY AT BEDTIME NEEDED FOR SLEEP Rx Instructions: TAKE 1 TABLET BY MOUTH EVERY DAY AT BEDTIME NEEDED FOR SLEEP <Liz Bermudez PA-C - Last Filed: 01/09/25 17:45> Follow-up/Referrals: UNKNOWN,DOCTOR [Primary Care Provider] - <Liz Bermudez PA-C - Last Filed: 01/09/25 17:45>
[2025-01-09 18:50] LABS: Basophils Percent Auto 0.7 % (0.2-1.2); Eosinophils Absolute Auto 0.2 K/mm3 (0-0.3); Hematocrit 37.5 % (37.0-47.0); Hemoglobin 12.4 g/dL (12.0-15.0); Immature Granulocyte Absolute 0.01 K/mm3 (0.00-0.031); Immature Granulocyte Percent A 0.2 % (0-0.5); Lymphocytes Absolute Auto 1.95 K/mm3 (0.9-3.2); Lymphocytes Percent Auto 44.2 % (18.3-44.2); Mean Corpuscular HGB Conc 33.1 g/dl (32-36); Mean Corpuscular Volume 90.6 fl (80-100); Mean Platelet Volume 10.6 fl (7.4-10.4); Monocytes Absolute Auto 0.4 K/mm3 (0.1-0.6); Monocytes Percent Auto 8.4 % (2.6-8.5); Neutrophils Absolute Auto 1.8 K/mm3 (1.3-6.7); Neutrophils Percent Auto 41.5 % (45.5-73.1); Platelet Count Result 179 k/mm3 (150-375); Red Blood Count 4.14 M/mm3 (4.2-5.4); Red Cell Distribution Width 15.4 % (11.5-14.5); White Blood Count 4.4 K/mm3 (4.5-10.0)
--- OUTSIDE RECORDS SUMMARY | 2025-01-09 18:55 | XMS_ITS | Encounter Summary ---
Author Organization [facility] Address [address] [place] [address] Phone Care Team Providers Care Nutrition Coordinator Name Role Phone Anna Cobain MD Primary Care Provid er Prakash Dash MD Unavailable [phone] Hilary Fontenot Unavailable Unavailable Srinivasa Herbert MD Unavailable Tina Winter [facility] Unavailable [phone] Leticia Thomas MD Unavailable Bernadette Billy Unavailable Encounter Details Date Type Department Care Team (Late st Contact Info) Description 02/28/2020 Orders Only [facility] Nephrology [address] [place] [id number] Zeke Singer Jr., RN Cough (Primary Dx) Social History Tobacco Use Types Packs/Day Years Used Date Smoking Tobacco: Light Smoker Cigarettes 0.2 24.1 Started: 2000 Smokeless Tobacco: Never Comments:she does smoke david kailash Alcohol Use Standard Drinks/Week Comments No 0 (1 standard drink = 0.6 oz pur e alcohol) Comments No Sex and Gender Information Value Date Recorded Sex Assigned at Not on file Legal Sex Female 7:07 PM [employer]AL [employer] OPERATOR Gender Identity Not on file Sexual Orientation Not on file documented as of this encounter Progress Notes * Zeke Singer Jr., RN - 02/28/2020 10:55 AM CDT covid documented in this encounter Plan of Treatment Not on file documented as of this encounter Results * COVID-19 Coronavirus RNA Nasopharyngeal (02/28/2020 10:58 AM CDT) [facility] COVID-19 RNA Not Detected DEEPAK PATEL Comment: Interpretive Data Testing performed at [facility]. The 2019-Novel Coronavirus Assay (COVID-19) Real Time RT-PCR assay is for in vitro diagnostic use under FDA emergency use authorization only. A negative RT-PCR result does not preclude infection with COVID-19 and should not be used as the sole basis for treatment or other patient management decisions. Additional sample types have been validated according to CLIA regulations. Current Interpretive Data was last revised on 2020. Nasopharyngeal 02/28/2020 10 :58 AM CDT 02/28/2020 4:05 PM CDT Narrative DEEPAK [facility] - 02/29/2020 2:15 AM CDT Does the patient meet the testing requirements described in the process instructions above?->Yes Saeid Alcala MD LAB MICROBIOLOGY - GENERAL ORDERABLES Final Result [facility] [place] [address] documented in this encounter Visit Diagnoses Diagnosis Cough- Primary Cough documented in this encounter Additional Health Concerns Infection Onset Date Last Indicated Resolved Time COVID: Suspected 02/28/2020 02/28/2020 03/13/2020 3:05 AM CDT COVID: Suspected 12/28/2020 12/28/2020 12/29/2020 3:54 AM METAL P[employer]CH [employer] OPERATOR Respiratory Infection (CHUY), contact + droplet Comment:Automatically added due to negative COVID-19 result. 12/29/2020 12/29/2020 01/12/2021 3:0 7 AM METAL P[employer]CH PR[employer] OPERATOR COVID: Suspected 11/20/2021 11/20/2021 11/20/2021 11:06 PM METAL P[employer]CH [employer] OPERATOR COVID19 11/20/2021 11/20/2021 12/04/2021 3:05 AM METAL P[employer]CH PR[employer] OPERATOR COVID: Recovered Comment:Added based on recent COVID infection. 12/04/2021 12/05/2021 04/03/2022 3:05 AM C DT COVID: Suspected 06/02/2022 06/02/2022 06/02/2022 1:51 PM CDT COVID: Suspected 10/01/2022 10/01/2022 10/01/2022 4:30 PM METAL P[employer] OPERATOR Influenza, adult 10/01/2022 10/01/2022 10/08/2022 3:05 AM METAL P[employer]CH PR[employer] OPERATOR COVID: Suspected 10/23/2023 10/23/2023 10/23/2023 3:49 PM METAL P[employer]CH PR[employer] OPERATOR RSV, droplet 10/23/2023 10/23/2023 10/30/2023 3:05 AM METAL P[employer]CH PR[employer] OPERATOR Rhino/Enterovirus 10/23/2023 10/23/2023 10/30/2023 3:05 AM METAL P[employer]CH PR[employer] OPERATOR COVID19 10/23/2023 10/23/2023 11/07/2023 3:05 AM METAL P[employer]CH PRESS OPERATOR COVID: Recovered Comment:Added based on recent COVID infection. 11/07/2023 11/08/2023 02/05/2024 3:05 AM C DT COVID: Suspected 11/21/2023 11/21/2023 11/21/2023 4:31 PM METAL P[employer]CH PR[employer] OPERATOR Abscess/Wound/Cellulitis 11/22/2023 11/22/2023 3:05 AM METAL P[employer]CH PR[employer] OPERATOR documented as of this encounter Care Teams Nutrition Coordinator Relationship Specialty Start Date End Date Anna Cobian MD PCP - General 06/27/18 [place] [id number] [address] Consulting Physician Endocrinology 09/29/19 Hilary Fontenot [facility] Outpatient Upholstery Technician 06/04/23 07/08/23 [place] [address] [place] [id number] [place] [address] Consulting Physician Gastroenterology 06/06/23 Tina Winter, [facility] [address] [place] [address] Fast Food Cook Nephrology 08/10/23 Leticia Thomas MD [address] [place] [address] Consulting Physician Internal Medicine 10/28/23 Bernadette Billy [address] [address] [place] [address] [facility] Outpatient Upholstery Technician 11/25/23 12/06/23 documented as of this encounter
--- OUTSIDE RECORDS SUMMARY | 2025-01-09 18:55 | XMS_ITS | Encounter Summary ---
Author Organization [facility] Address [address] [place] [address] Phone Care Team Providers Care Physical Sciences Professor Name Role Phone Anna Cobian MD Primary Care Provid er Anna Cobian MD Primary Care Provid er Sharon Bundy Primary Care Provider + Anna Cobian MD Primary Care Provid er Prakash Dash MD Unavailable [phone] Hilary Fontenot Unavailable Unavailable Srinivasa Herbert MD Unavailable Tina Winter [facility] Unavailable [phone] Leticia Thomas MD Unavailable Bernadette Billy Unavailable Encounter Details Date Type Department Care Team (Late st Contact Info) Description 11/28/2012 Orders Only [facility]INCONV Provider, MD Royer [address] [place] [address] Social History Tobacco Use Types Packs/Day Years Used Date Smoking Tobacco: Never Assessed Comments Unknown Sex and Gender Information Value Date Recorded Sex Assigned at Not on file Legal Sex Female 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 us Historical Provider NURSING COMMUNICATION Fin al Result documented in this encounter Visit Diagnoses Not on filedocumented in this encounter Additional Health Concerns Infection Onset Date Last Indicated Resolved Time COVID: Suspected 02/28/2020 02/28/2020 03/13/2020 3:05 AM CDT COVID: Suspected 12/28/2020 12/28/2020 12/29/2020 3:54 AM SENIOR SECURITY ENGINEER Respiratory Infection (CHUY), contact + droplet Comment:Automatically added due to negative COVID-19 result. 12/29/2020 12/29/2020 01/12/2021 3:0 7 AM SENIOR SECURITY ENGINEER COVID: Suspected 11/20/2021 11/20/2021 11/20/2021 11:06 PM SENIOR SECURITY ENGINEER COVID19 11/20/2021 11/20/2021 12/04/2021 3:05 AM SENIOR SECURITY ENGINEER COVID: Recovered Comment:Added based on recent COVID infection. 12/04/2021 12/05/2021 04/03/2022 3:05 AM C DT COVID: Suspected 06/02/2022 06/02/2022 06/02/2022 1:51 PM CDT COVID: Suspected 10/01/2022 10/01/2022 10/01/2022 4:30 PM SENIOR SECURITY ENGINEER Influenza, adult 10/01/2022 10/01/2022 10/08/2022 3:05 AM SENIOR SECURITY ENGINEER COVID: Suspected 10/23/2023 10/23/2023 10/23/2023 3:49 PM SENIOR SECURITY ENGINEER RSV, droplet 10/23/2023 10/23/2023 10/30/2023 3:05 AM SENIOR SECURITY ENGINEER Rhino/Enterovirus 10/23/2023 10/23/2023 10/30/2023 3:05 AM SENIOR SECURITY ENGINEER COVID19 10/23/2023 10/23/2023 11/07/2023 3:05 AM SENIOR SECURITY ENGINEER COVID: Recovered Comment:Added based on recent COVID infection. 11/07/2023 11/08/2023 02/05/2024 3:05 AM C DT COVID: Suspected 11/21/2023 11/21/2023 11/21/2023 4:31 PM SENIOR SECURITY ENGINEER Abscess/Wound/Cellulitis 11/22/2023 11/22/2023 3:05 AM SENIOR SECURITY ENGINEER documented as of this encounter Care Teams Physical Sciences Professor Relationship Specialty Start Date End Date Anna Cobian MD PCP - General 01/31/17 04/21/17 Anna Cobian MD PCP - General 04/22/17 06/15/17 Sharon Bundy [address] [place] [address] [address] [place] [address] PCP - General 06/16/17 06/26/18 Anna Cobian MD PCP - General 06/27/18 [place] [address] [address] [facility] [address] [place] [address] Consulting Physician Endocrinology 09/29/19 Hilary Fontenot Outpatient Car Record Clerk 06/04/23 07/08/23 [place] [address] [address] [facility] [address] [place] [address] Consulting Physician Gastroenterology 06/06/23 Tina Winter, [facility] [address] [place] [address] Can Sealer Nephrology 08/10/23 Leticia Thomas MD [address] [place] [address] Consulting Physician Internal Medicine 10/28/23 Billy, [address] [place] [address] [facility] Outpatient Car Record Clerk 11/25/23 12/06/23 documented as of this encounter
--- OUTSIDE RECORDS SUMMARY | 2025-01-09 18:55 | XMS_ITS | Continuity of Care Document ---
Author Organization [facility] Address [address] [place] [address] Phone Care Team Providers Care Surgical Services Tech Name Role Phone Cornell Rodríguez MD Unavailable Unavailable Allergies, Adverse Reactions, Alerts Substance Reaction Status Criticality No Known Allergies Active No Inform ation Medications Medication Instructions Dosage Effective Dates (start - stop) Status Comments Novolog Flexpen U-100 Insulin aspart 100 unit/mL (3 mL) subcutaneous inject by subcutaneous route per prescriber's instructions. Insulin dosing requires individualization. 0.00 - Active amlodipine 10 mg tablet take 1 tablet by oral route every day 10 MG - Active atorvastatin 10 mg tablet take 1 tablet by oral route every day 10 MG - Active calcium acetate(phosphate binders) 667 mg capsule take 3 capsule by oral route 3 times every day with meals 2001 MG - Active clonidine HCl 0.1 mg tablet take 1 tablet by oral route as needed. - Active diphenhydramine 50 mg/mL injection syringe inject 0.5 milliliter by intravenous route as needed - Active carvedilol 25 mg tablet take 1 tablet by oral route 2 times every day with food 25 MG - Active docusate sodium 100 mg capsule take 1 capsule by oral route 2 times daily for constipation. - Active doxazosin 2 mg tablet take 1 tablet by oral route every day 2 MG - Active furosemide 80 mg tablet take 1 tablet by oral route every day 80 MG - Active gabapentin 100 mg capsule take 2 capsule by oral route 2 times every day 200 MG - Active losartan 100 mg tablet take 1 tablet by oral route every day 100 MG - Active metoclopramide 10 mg tablet take 1 tablet by oral route every 6 hours as needed. - Active trazodone 50 mg tablet take 1 tablet by oral route 3 times every day after meals 50 MG - Active calcitriol 0.5 mcg capsule take 1 capsule by oral route during treatments - Active cholecalciferol (vitamin D3) 1,250 mcg (50,000 unit) capsule Take 1 capsule once monthly. - Active acetaminophen 325 mg tablet take 2 tablet by oral route every 6 hours as needed 650 MG - Active promethazine 25 mg tablet take 1 tablet by oral route twice daily as needed - Active Procedures Procedure Date CONTRAST, 300/ML, PER ML INTRO CATH DIALYSIS CIRCUIT Radiation Exposure Documented To Be Coded Intro cath dialysis circuit Intro cath dialysis circuit CONTRAST, 300/ML, PER ML INTRO CATH DIALYSIS CIRCUIT Radiation Exposure Documented To Be Coded Intro cath dialysis circuit Intro cath dialysis circuit Advance Directives Directive Yes / No Effective Date File Name No Information Encounters Encounter Description Practice Location Reason(s) For Visit Diagnoses Date Provider Providers Copied on Encounter [facility], [address] [place] [address], [id number], tel:[phone] [facility] No Information Anne Sarabia. [address] [place] [address], [id number], [place]. tel:[phone] [facility], [address] [place] [address], [id number], [place] tel:[phone] [facility] End stage renal disease Albjude Huffmany. [address] [place] [address], [id number], [place]. tel:[phone] Referring Provider: Landy Rdz, [address] [place] [address]; [facility] [address] [place], [address]. tel:[phone] [facility], [address] [place] [address], [id number], [place] tel:[phone] [facility] End stage renal disease Anne Sarabia. [address] [place] [address], [id number], [place]. tel:[phone] Referring Provider: Landy Rdz, [address] [place] [address]; [facility] [address] [place], [address]. tel:[phone] [facility], [address] [place] [address], [id number], tel:[phone] [facility] End stage renal disease Anne Sarabia. [address] [place] [address], [id number], . tel:[phone] Referring Provider: Norma Gregory [address]: [address], [address]. tel:[phone] [facility], [address] [place] [address], [id number], tel:[phone] [facility] End stage renal disease Anne Sarabia. [address] [place] [address], [id number], . tel:[phone] Referring Provider: Norma Gregory [address]: [address], [address]. tel:[phone] As per patient privacy policy some of the clinical information may not be visible. Family History Family Member Type Diagnosis Age At Onset No Information Payers Payer name Insurance type Covered democrat ID Authorjoaquina tisarahi(s) Medicare [facility] [id number] Medicaid [facility] [id number] Social History Type Description Quantity Date Captured Comments Sex Female Smoking Status No Information Sexual Orientation Straight or heterosexual Gender Identity Female Chief Complaint And Reason For Visit No Information Reason For Referral Reason For Referral No Information Plan Of Treatment Date Type Action Status Future Order: Radiology Order Up per Body Flouroscopy ([id number]), Ordered on: Ordered Future Order: Radiology Order Up per Body Flouroscopy ([id number]), Ordered on: Ordered History Of Present Illness Encounter Date Complaint History Of Prese nt Illness No Information Functional Status Date Functional Assessmen t No Information Instructions Date Instruction Additional Infor mation No Information Assessments Type Assessment Date No Information Patient Care Teams Name Effective Dates (start - stop) Status Members No Information
--- OUTSIDE RECORDS SUMMARY | 2025-01-09 18:55 | XMS_ITS | Encounter Summary ---
Author Organization [facility] Address [address] [place] [address] Phone Care Team Providers Care House Worker Name Role Phone Anna Cobian MD Primary Care Provid er Prakash Dash MD Unavailable [phone] Hilary Fontenot Unavailable Unavailable Srinivasa Herbert MD Unavailable Tina Winter [facility] Unavailable [phone] Leticia Thomas MD Unavailable Bernadette Billy Unavailable Encounter Details Date Type Department Care Team (Late st Contact Info) Description 06/30/2022 Treatment [facility] Nephrology [address] [place] [id number] Zeke Singer Jr., RN Social History Tobacco Use Types Packs/Day Years Used Date Smoking Tobacco: Heavy Smoker Cigarettes 0.5 24.1 Started: 2000 Smokeless Tobacco: Never Comments:she does smoke david kailash Alcohol Use Standard Drinks/Week Comments No 0 (1 standard drink = 0.6 oz pur e alcohol) AUDIT-C Answer Date Recorded Q1: How often do you have a drink containing alc ohol? Never 02/23/2021 Average Number of Drinks Not on file 021 Q3: How often do you have si x or more drinks on one occasion? Never 02/23/2021 Comments No Sex and Gender Information Value Date Recorded Sex Assigned at Not on file Legal Sex Female 7:07 PM SVP [employer] Gender Identity Not on file Sexual Orientation Not on file documented as of this encounter Plan of Treatment Not on file documented as of this encounter Visit Diagnoses Not on filedocumented in this encounter Additional Health Concerns Infection Onset Date Last Indicated Resolved Time COVID: Suspected 10/01/2022 10/01/2022 10/01/2022 4:30 PM [employer]P [employer] Influenza, adult 10/01/2022 10/01/2022 10/08/2022 3:05 AM [employer]P [employer] COVID: Suspected 10/23/2023 10/23/2023 10/23/2023 3:49 PM [employer]P [employer] RSV, droplet 10/23/2023 10/23/2023 10/30/2023 3:05 AM SVP [employer] Rhino/Enterovirus 10/23/2023 10/23/2023 10/30/2023 3:05 AM [employer]P [employer] COVID19 10/23/2023 10/23/2023 11/07/2023 3:05 AM [employer]P [employer] COVID: Recovered Comment:Added based on recent COVID infection. 11/07/2023 11/08/2023 02/05/2024 3:05 AM C DT COVID: Suspected 11/21/2023 11/21/2023 11/21/2023 4:31 PM [employer]P [employer] Abscess/Wound/Cellulitis 11/22/2023 11/22/2023 3:05 AM [employer]P [employer] documented as of this encounter Care Teams House Worker Relationship Specialty Start Date End Date Anna Cobian MD PCP - General 06/27/18 [place] [address] [facility] [facility] [address] [place] [address] Consulting Physician Endocrinology 09/29/19 Hilary Fontenot Outpatient Pull Out Operator 06/04/23 07/08/23 [place] [address] [facility] [facility] [address], [place] [address] Consulting Physician Gastroenterology 06/06/23 Tina Winter, API DEVELOPER [address] [place] [address] Plant Wire Chief Nephrology 08/10/23 Leticia Thomas MD [address] [place] [address] Consulting Physician Internal Medicine 10/28/23 Bernadette [address] [place] [address] [facility] Outpatient Pull Out Operator 11/25/23 12/06/23 documented as of this encounter
--- OUTSIDE RECORDS SUMMARY | 2025-01-09 18:55 | XMS_ITS | Encounter Summary ---
Author Organization [facility] Address [address] [place] [address] Phone Care Team Providers Care Hadoop Administrator Name Role Phone Anna Cobian MD Primary Care Provid er Prakash Dash MD Unavailable [phone] Hialry Fontenot Unavailable Unavailable Srinivasa Herbert MD Unavailable Tina Winter [facility] Unavailable [phone] Leticia Thomas MD Unavailable Bernadette Blily Unavailable Encounter Details Date Type Department Care Team (Late st Contact Info) Description 05/19/2023 Documentation [facility] Nephrology [address] [place] [phone] Deniz Moctezuma, QUOC Social History Tobacco Use Types Packs/Day Years [...] more drinks on one occasion? Never 02/23/2021 PHQ-2 Answer Date Recorded PHQ-2 Total Score 0 05/04/2023 Comments No Sex and Gender Information Value Date Recorded Sex Assigned at Not on file Legal Sex Female 7:07 PM WET FINISHER WOOL Gender Identity Not on file Sexual Orientation Not on file documented as of this encounter Last Filed Vital Signs Vital Sign Reading Time Taken Comments Blood Pressure - - Pulse - - Temperature - - Respiratory Rate - - Oxygen Saturation - - Inhaled Oxygen Concentration - - Weight 86.5 kg (190 lb 11.2 oz) 023 11:03 AM CDT Height - - Body Mass Index 30.78 01/14/2022 9:19 AM WET FINISHER WOOL documented in this encounter Plan of Treatment Not on file documented as of this encounter Visit Diagnoses Not on filedocumented in this encounter Additional Health Concerns Infection Onset Date Last Indicated Resolved Time COVID: Suspected 10/23/2023 10/23/2023 10/23/2023 3:49 PM WET FINISHER WOOL RSV, droplet 10/23/2023 10/23/2023 10/30/2023 3:05 AM WET FINISHER WOOL Rhino/Enterovirus 10/23/2023 10/23/2023 10/30/2023 3:05 AM WET FINISHER WOOL COVID19 10/23/2023 10/23/2023 11/07/2023 3:05 AM WET FINISHER WOOL COVID: Recovered Comment:Added based on recent COVID infection. 11/07/2023 11/08/2023 02/05/2024 3:05 AM C DT COVID: Suspected 11/21/2023 11/21/2023 11/21/2023 4:31 PM WET FINISHER WOOL Abscess/Wound/Cellulitis 11/22/2023 11/22/2023 3:05 AM WET FINISHER WOOL documented as of this encounter Care Teams Hadoop Administrator Relationship Specialty Start Date End Date Anna Cobian MD PCP - General 06/27/18 [place] [address] [address] Consulting Physician Endocrinology 09/29/19 Hilary Fontenot Outpatient Drawer Hardware Worker 06/04/23 07/08/23 [place] [address] [address] [address] Consulting Physician Gastroenterology 06/06/23 Tina Winter, [facility] [address] [place] [address] Squeegee Tender Nephrology 08/10/23 Leticia Thomas MD [address] [place] [address] Consulting Physician Internal Medicine 10/28/23 Bernadette Billy [address] [address] [place] [address] [facility] Outpatient Drawer Hardware Worker 11/25/23 12/06/23 documented as of this encounter
--- OUTSIDE RECORDS SUMMARY | 2025-01-09 18:55 | XMS_ITS | Encounter Summary ---
Author Organization [facility] Address [address] [place] [address] Care Team Providers Care Retirement Benefits Specialist Name Role Phone Anna Cobian MD Primary Care Provid er Prakash Dash MD Unavailable [phone] Hilary Fontenot Unavailable Unavailable Srinivasa Herbert MD Unavailable Tina Winter [facility] Unavailable [phone] Leticia Thomas MD Unavailable Bernadette Billy Unavailable Encounter Details Date Type Department Care Team (Late st Contact Info) Description 11/19/2021 Telephone [facility] Radiology [address] [place], [place] [id number] Yany James RN Social History Tobacco Use Types Packs/Day [...] on file Legal Sex Female 7:07 PM ANATOMIC PATHOLOGY ASSISTANT Gender Identity Not on file Sexual Orientation Not on file documented as of this encounter Plan of Treatment Not on file documented as of this encounter Visit Diagnoses Not on filedocumented in this encounter Additional Health Concerns Infection Onset Date Last Indicated Resolved Time COVID: Suspected 11/20/2021 11/20/2021 11/20/2021 11:06 PM ANATOMIC PATHOLOGY ASSISTANT COVID19 11/20/2021 11/20/2021 12/04/2021 3:05 AM ANATOMIC PATHOLOGY ASSISTANT COVID: Recovered Comment:Added based on recent COVID infection. 12/04/2021 12/05/2021 04/03/2022 3:05 AM C DT COVID: Suspected 06/02/2022 06/02/2022 06/02/2022 1:51 PM CDT COVID: Suspected 10/01/2022 10/01/2022 10/01/2022 4:30 PM ANATOMIC PATHOLOGY ASSISTANT Influenza, adult 10/01/2022 10/01/2022 10/08/2022 3:05 AM ANATOMIC PATHOLOGY ASSISTANT COVID: Suspected 10/23/2023 10/23/2023 10/23/2023 3:49 PM ANATOMIC PATHOLOGY ASSISTANT RSV, droplet 10/23/2023 10/23/2023 10/30/2023 3:05 AM ANATOMIC PATHOLOGY ASSISTANT Rhino/Enterovirus 10/23/2023 10/23/2023 10/30/2023 3:05 AM ANATOMIC PATHOLOGY ASSISTANT COVID19 10/23/2023 10/23/2023 11/07/2023 3:05 AM ANATOMIC PATHOLOGY ASSISTANT COVID: Recovered Comment:Added based on recent COVID infection. 11/07/2023 11/08/2023 02/05/2024 3:05 AM C DT COVID: Suspected 11/21/2023 11/21/2023 11/21/2023 4:31 PM ANATOMIC PATHOLOGY ASSISTANT Abscess/Wound/Cellulitis 11/22/2023 11/22/2023 3:05 AM ANATOMIC PATHOLOGY ASSISTANT documented as of this encounter Care Teams Retirement Benefits Specialist Relationship Specialty Start Date End Date Anna Cobian MD PCP - General 06/27/18 [place] [address] [address] [place] [address] Consulting Physician Endocrinology 09/29/19 Hilary Fontenot Outpatient Line Department Supervisor 06/04/23 07/08/23 [place] [address] [address] [place] [address] Consulting Physician Gastroenterology 06/06/23 Tina Winter, [facility] [address] [place] [address] Metallurgist Helper Nephrology 08/10/23 Leticia Thomas MD [address] [facility] [place] [address] Consulting Physician Internal Medicine 10/28/23 Bernadette Billy [address] [address] [place] [address] [facility] Outpatient Line Department Supervisor 11/25/23 12/06/23 documented as of this encounter
--- OUTSIDE RECORDS SUMMARY | 2025-01-09 18:55 | XMS_ITS | Continuity of Care Document ---
Author Organization [facility] Address [address] [place] [address] Phone Care Team Providers Care Director Of Residence Life Name Role Phone Sharon Bundy MD Unavailable Unavai lable Medications Medication Instructions Dosage Effective Dates (start - stop) Status Comments Lantus 100 unit/mL Sub-Q inject 25 UNITS by Subcutaneous route every evening 25 UNITS - Active Insulin Syringe 1 mL 30 x 5/16 Use one daily for insulin administration - Active lancets Use TID to obtain bl ood glucose reading - Active One Touch Ultra Test Strips patient test 1 by [facility].(Non-Drug; Combo Route) route 3 times every day 1 - Active Glucose Bits 1 gram chewable tablet for BG less than 70. Follow with snack or meal as needed - Active Glucagon Emergency 1 mg Injection Kit As directed for emergent hypoglycemic event as needed - Active glipizide 5 mg tablet take 1 tablet (5MG) by oral route 2 times every day with breakfast and evening meal 5 MG - Active metformin 1,000 mg tablet take 1 tablet (1000MG) by oral route 2 times every day with morning and evening meals 1000 MG - Active enalapril maleate 10 mg tablet take 1 Tablet (10MG) by oral route 2 times every day 10 MG - Active Vitamin D3 2,000 unit Cap take 1 by Oral route every day 1 - Active Advance Directives Directive Yes / No Effective Date File Name No Information Encounters Encounter Description Practice Location Reason(s) For Visit Diagnoses Date Provider Providers Copied on Encounter [facility], [address], [place], [place], [id number] , [place] tel: [phone] [facility] No Information Apr- 7 Yemi Herrera. [address], [address], [place], [place], [address]. tel:[phone] [facility], [address], [place], [place], [address] , [place] tel: [phone] [facility] Diabetes with ophthalmic manifestations, type II or unspecified type, uncontrolled 0 3 Guillermo Regalado. [address], [place], [place], [address], [place]. tel:[phone] [facility], [address], [place], [place], [address] , [place] tel: [phone] [facility] Diabetes with ophthalmic manifestations, type II or unspecified type, uncontrolled 3 Guillermo Regalado. [address], [facility] [address], [place], [place], [address], [place]. tel:[phone] [facility], [address], [place], [place], [address] , [place] tel: [phone] [facility] Diabetes with ophthalmic manifestations, type II or unspecified type, uncontrolled 3 Guillermo Regalado. [address], [facility] [address], [place], [place], [address], [place]. tel:[phone] [facility], [address], [place], [place], [address] , [place] tel: [phone] [facility] Diabetes with ophthalmic manifestations, type II or unspecified type, uncontrolled 3 Guillermo Regalado. [address], [facility] [address], [place], [place], [address], [place]. tel:[phone] [facility], [address], [place], [place], [address] , [place] tel: [phone] [facility] Diabetes with ophthalmic manifestations, type II or unspecified type, uncontrolled 3 Guillermo Regalado. [address], [place], [place], [address], [place]. tel:[phone] [facility], [address], [place], [place], [address] , tel: [phone] [facility] DM (diabetes mellitus) type II uncontrolled with eBackground diabetic retinopathyUnspecifi ed essential hypertensionNEED FOR PROPHYLACTIC VACCINATION WITH COMBINED [id number] ERTUSSIS (DTP) (DTAP) VACCINE 3 Guillermo Regalado. [address], [facility] [address], [place], [place], [address], [place]. tel:[phone] Referring Provider: Sharon Arias, [address] [place] [address] [address], [place], [address] . tel:[phone] [facility], [address], [place], [place], [address] , [place] tel: [phone] [facility] Hypertensive emergencyDiabetes with ophthalmic manifestations, type II or unspecified type, uncontrolledObesity, unspecifiedNon compliance w medication regimenRetinal hemorrhage 3 Yemi Herrera. [address], [facility] [address], [place], [place], [address]. tel:[phone] Referring Provider: Sharon Arias, [address] [place] [address] [address], [place], [address] . tel:[phone] [facility], [address], [place], [place], [address] , tel: [phone] [facility] Diabetes with ophthalmic manifestations, type II or unspecified type, uncontrolledBackgrou nd diabetic retinopathyObesity, unspecified 2 Yemi Herrera. [address], [facility] [address], [place], [place], [address]. tel:[phone] [facility], [address], [place], [place], [address] , [place] tel: [phone] [facility] No Information 2 Adjuntasgibran Herrera. [facility], [place] [address], [place], [place], [address]. tel:[phone] [facility], [address], [place], [place], [address] , tel: [phone] [facility] Diabetes with ophthalmic manifestations, type II or unspecified type, uncontrolledObesity, unspecifiedRetinopat hy due to secondary diabetesBackground diabetic retinopathyObesity, unspecifiedRoutine general medical examination at a health care facilityNoncomplian e with diet and medication regimen 2 Adjuntasgibran Herrera. [address], [facility] [address], [place], [place], [address]. tel:[phone] Referring Provider: Sharon Arias, [address], [place], [address] . tel:[phone] Family History Family Member Type Diagnosis Age At Onset Mother Problem (finding) diabetes melli tus in first degree relative Brother Problem (finding) diabetes melli tus in first degree relative Mother Problem (finding) hypertension Sister Problem (finding) diabetes melli tus in first degree relative Father Problem (finding) diabetes melli tus in first degree relative Immunizations Vaccine Date Status Comments Tdap administered Source: [facility] unization Record Payers Payer name Insurance type Covered republican ID Authoriza tion(s) No Information Social History Type Description Quantity Date Captured Comments Sex Female Smoking Status No Information Sexual Orientation Lesbian, martinez or homosexual Chief Complaint And Reason For Visit No Information Reason For Referral Reason For Referral No Information History Of Present Illness Encounter Date Complaint History Of Prese nt Illness No Information Functional Status Date Functional Assessmen t No Information Instructions Date Instruction Additional Infor mation No Information Assessments Type Assessment Date No Information Patient Care Teams Name Effective Dates (start - stop) Status Members No Information
--- OUTSIDE RECORDS SUMMARY | 2025-01-09 18:55 | XMS_ITS | Encounter Summary ---
Author Organization [facility] Address [address] [place] [address] Care Team Providers Care Rn Nicu Name Role Phone Anna Cobian MD Primary Care Provid er Prakash Dash MD Unavailable [phone] Srinivasa Herbert MD Unavailable Tina Winter [facility] Unavailable Leticia Thomas MD Unavailable Bernadette Billy Unavailable Encounter Details Date Type Department Care Team (Late st Contact Info) Description 08/26/2023 Treatment [facility] [address] [facility] [address] [place] [address] Shobha cShuster MD PhD [address] [facility] [id number] [place] [address] Social History Tobacco Use Types Packs/Day Years Used Date Smoking Tobacco: Heavy Smoker Cigarettes 0.5 24.1 Started: 2000 Smokeless Tobacco: Never Comments:she does smoke david kailash Alcohol Use Standard Drinks/Week Comments No 0 (1 standard drink = 0.6 oz pur e alcohol) Social Connection and Isolation Panel [NHANES] A nswer Date Recorded In a typical week, how many times do you talk on the phone with family, friends, or neighbors? Three times a week 08/20/20 23 How often do you get togethe r with friends or relatives? Three times a week 08/20/2023 How often do you attend chur ch or baptism services? Never 08/20/2023 Do you belong to any clubs o r organizations such as congregation groups, unions, fraternal or athletic groups, or school groups? No 08/20/2023 How often do you attend meet ings of the clubs or organizations you belong to? Never 08/20/2023 Are you , , di vorced, , never , or living with a partner? Living with partner 08/20/2023 AUDIT-C Answer Date Recorded Q1: How often do you have a drink containing alcohol? Never 06/26/2023 Q2: How many drinks containi ng alcohol do you have on a typical day when you are drinking? Patient does not drink Q3: How often do you have si x or more drinks on one occasion? Never 06/26/2023 Overall Financial Resource Strain (CARDIA) Answe r Date Recorded How hard is it for you to pa y for the very basics like food, housing, medical care, and heating? Not hard at all 08/20/2023 PHQ-2 Answer Date Recorded PHQ-2 Total Score 0 08/20/2023 [facility] - Occupational Stress Questionnaire Answer Date Recorded Do you feel stress - tense, restless, nervous, or anxious, or unable to sleep at night because your mind is troubled all the time - these days? Not at all 06/05/2023 Exercise Vital Sign Answer Date Recorde d On average, how many days pe r week do you engage in moderate to strenuous exercise (like a brisk walk)? 0 days 06/05/2023 On average, how many minutes do you engage in exercise at this level? 0 min 06/05/2023 Hunger Vital Sign Answer Date Recorded Within the past 12 months, y ou worried that your food would run out before you got the money to buy more. Never true 08/20/20 23 Within the past 12 months, t he food you bought just didn't last and you didn't have money to get more. Never true 08/20/2023 PRAPARE - Transportation Answer Date Re corded In the past 12 months, has l ack of transportation kept you from medical appointments or from getting medications? No 03/2023 In the past 12 months, has l ack of transportation kept you from meetings, work, or from getting things needed for daily living? No 08/20/2023 Housing Stability Vital Sign Answer Gianluca e Recorded In the last 12 months, was t here a time when you were not able to pay the mortgage or rent on time? No 06/26/2023 In the last 12 months, how many places have you lived? 1 06/26/2023 In the last 12 months, was t here a time when you did not have a steady place to sleep or slept in a half-way (including now)? No 06/26/2023 Comments No Sex and Gender Information Value Date Recorded Sex Assigned at Not on file Legal Sex Female 7:07 PM CHIEF SCIENTIFIC OFFICER Gender Identity Not on file Sexual Orientation Not on file documented as of this encounter Progress Notes * Shobha Schuster MD - 08/26/2023 12:47 PM CDT Transfusion Medicine Blood Bank Note Patient Information: ABO/Rh: O positive Antibody screen: Positive Previous antibodies: Present/known: anti-E, anti-K, and antibody of undetermined specificity Antibodies identified: cold autoantibody Additional testing performed: Red blood cell phenotype: antigens C, E and K negative, antigens c and e positive and Direct antiglobulin test (GIANLUCA) negative Relevant Patient History: Celeste Waters is a 38 y.o. woman with HTN, GERD, neuropathy, T2DM, ESRD MWF HD who presents as a transfer from [facility] d/t concern for compartment syndrome. Testing Information: The antibody screen was positive. 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 Additional testing was performed. A direct antiglobulin test (GIANLUCA) was negative. Phenotyping showed that the patient's red blood cells are C, E and K antigen negative and c and e antigen positive. Historical antibodies generally considered to be clinically significant include anti-E and anti-K. All other common, clinically significant antibodies have been ruled out. Clinical Relevance: If cold autoantibodies are not demonstrating reactivity at warm temperatures, they are generally not considered to be clinically significant at body temperature. Anti-E and anti-K antibodies have been implicated in hemolytic transfusion reactions with extravascular hemolysis and hemolytic disease of the fetus and .Therefore, anti-E and anti-K antibodies are generally considered to be clinically significant. An antibody of undetermined specificity (AUS) indicates reactivity that cannot be further characterized, the clinical relevance of which is unknown at this time. Presence of cold autoantibodies requires that additional testing be performed and this will result in additional time for blood product selection when ordered for transfusion. Therapeutic Relevance: ABO/Rh and crossmatch compatible red blood cell units negative for the E and K antigens will be provided for future transfusions. Approximately 64% ABO/Rh compatible units from the donor population are expected to be compatible. Approximately 1-2 units will need to be screened to find one compatible unit for this patient. Presence of a cold autoantibody may require the release of crossmatch incompatible red blood cell units. ABO/Rh compatible red blood cell units will be provided for future transfusions. Contact Information: Please contact the [facility] Blood Bank with any questions. This report has been prepared by: Shobha Schuster MD Cosigned by Jsoelo Plascencia MD at 08/28/2023 5:12 PM CDT Associated attestation - Joselo Plascencia MD - 08/28/2023 5:12 PM CDT Attestation: I have personally reviewed the antibody result and agree with the interpretation contained in this written blood bank report. Joselo Plascencia MD documented in this encounter Plan of Treatment Not on file documented as of this encounter Visit Diagnoses Not on filedocumented in this encounter Additional Health Concerns Infection Onset Date Last Indicated Resolved Time COVID: Suspected 10/23/2023 10/23/2023 10/23/2023 3:49 PM CHIEF SCIENTIFIC OFFICER RSV, droplet 10/23/2023 10/23/2023 10/30/2023 3:05 AM CHIEF SCIENTIFIC OFFICER Rhino/Enterovirus 10/23/2023 10/23/2023 10/30/2023 3:05 AM CHIEF SCIENTIFIC OFFICER COVID19 10/23/2023 10/23/2023 11/07/2023 3:05 AM CHIEF SCIENTIFIC OFFICER COVID: Recovered Comment:Added based on recent COVID infection. 11/07/2023 11/08/2023 02/05/2024 3:05 AM C DT COVID: Suspected 11/21/2023 11/21/2023 11/21/2023 4:31 PM CHIEF SCIENTIFIC OFFICER Abscess/Wound/Cellulitis 11/22/2023 11/22/2023 3:05 AM CHIEF SCIENTIFIC OFFICER documented as of this encounter Care Teams Rn Nicu Relationship Specialty Start Date End Date Anna Cobian MD PCP - General 06/27/18 [place] [address] [address] [facility] [address] [place] [address] Consulting Physician Endocrinology 09/29/19 [place] [address] [address] [facility] [address] [place] [address] Consulting Physician Gastroenterology 06/06/23 Tina Winter, DEPUTY PROGRAM MANAGER [address] [place] [address] Metal Weather Stripper Nephrology 08/10/23 Leticia Thomas MD [address] [place] [address] Consulting Physician Internal Medicine 10/28/23 Bernadette Billy [address] [place] [address] [facility] [address] Manager 11/25/23 12/06/23 documented as of this encounter
--- OUTSIDE RECORDS SUMMARY | 2025-01-09 18:55 | XMS_ITS | Clinical Summary ---
Author Organization [facility] Address [address] [place] [address] Phone Care Team Providers Care Sewer System Supervisor Name Role Phone Anna Cobian MD Primary Care Provid er Allergies No known active allergies Medications enalapril (VASOTEC) 20 mg tablet Take 20 mg by mouth 2 times daily. Active INSULIN GLARGINE,HUM.RE C.ANLOG (LANTUS SUBCUT) Inject 35 Units by subcutaneous injection. Active DULAGLUTIDE (TRULICITY SUBCUT) Inject by subcutaneous injection. Active pantoprazole (PROTONIX) 20 mg Tablet, Delayed Release (E.C.) Take 20 mg by mouth daily. Active Active Problems No known active problems Family History Medical History Relation Name Comments Colon Cancer Neg Hx Social History Tobacco Use Types Packs/Day Years Used Date Smoking Tobacco: Never Smokeless Tobacco: Never Alcohol Use Standard Drinks/Week Comments No 0 (1 standard drink = 0.6 oz pur e alcohol) Comments Unknown Sex and Gender Information Value Date Recorded Sex Assigned at Not on file Legal Sex Female 9:39 AM CDT Gender Identity Not on file Sexual Orientation Not on file Last Filed Vital Signs Vital Sign Reading Time Taken Comments Blood Pressure 111/76 02/12/2018 8:02 AM CDT Pulse 82 02/12/2018 8:02 AM CDT Temperature 36.2 C (97.2 F) 02/12/2018 7:42 AM CDT Respiratory Rate 18 02/12/2018 8:02 AM CDT Oxygen Saturation 100% 02/12/2018 8:02 AM CDT Inhaled Oxygen Concentration - - Weight 109.4 kg (241 lb 3.2 oz) 02/12/2018 7:03 AM CDT Height 167.6 cm (5' 6 ) 02/12/2018 7:03 AM CDT Body Mass Index 38.93 02/12/2018 7:03 AM CDT Plan of Treatment Health Maintenance Due Date Last Done Comments DTAP/TDAP/TD VACCINES (1 - Tdap) 2004 HEPATITIS B VACCINES (1 of 3 - 19+ 3-dose series) 2004 CERVICAL CANCER SCREENING 2015 INFLUENZA VACCINE (#1) 2024 HPV VACCINES Aged Out No longer eligi ble based on patient's age to complete this topic PNEUMOCOCCAL VACCINE 0-64 YEARS Aged Out No longer eligible based on patient's age to complete this topic Insurance [place]ICA[place] PART A AND B Advance Directives For more information, please contact: [phone] * Full Code (Latest Code Status on File) Date Activated Date Inactivated Comments 02/12/2018 7:06 AM 02/12/2018 10:20 AM Care Teams Sewer System Supervisor Relationship Specialty Start Date End Date Anna Cobian MD PCP - General Internal Medicine 08/04/14
--- OUTSIDE RECORDS SUMMARY | 2025-01-09 18:55 | XMS_ITS ---
Author Organization [facility] Address [address] [place] [id number] Care Team Providers Care Funeral Home Attendant Name Role Phone Anna Cobian MD Primary Care Provid er Prakash Dash MD Unavailable [phone] Srinivasa Herbert MD Unavailable Tina Winter [facility] Unavailable Leticia Thomas MD Unavailable Dialysis Access Sites Type Status Location Placement Date Removal Da te AV fistula Active Left Upper Arm - Anterior 06/20/2019 Procedures Procedure Name Priority Date/Time Associated Diagnosis Comments HEPATITIS C ANTIBODY Routine 12/21/2023 12:00 AM [facility] ESRD (end stage renal disease) (CMS/HCC) (HCC) EGFR Routine 11/26/2023 2:50 AM [facility] HEMOGLOBIN A1C 11/18/2023 12:00 AM [facility] LIPID PANEL STAT 08/19/2023 1:29 AM CDT from Last 3 Months or Most Recently Relevant to Health Maintenance Allergies No known active allergies Medications acetaminophen (TYLENOL) 325 mg tablet Take 2 tablets (650 mg total) by mouth every 4 (four) hours as needed for pain. 30 tablet 12/19/19 18 Active lancets misc Use TID to obtain blood glucose reading 01/03/20 13 Active insulin syringe-needle U-100 1 mL 30 gauge x 5/16 syringe Use one daily for insulin administration 01/03/20 13 Active pen needle, diabetic (Lite Touch Insulin Pen [place]) 31 gauge x 3/16 needleIndication s:Diabetes Mellitus Insulin needles. Sufficient quantity for a month 100 each 11 09/19/20 20 Active blood-glucose meter miscIndications: Diabetes Mellitus 1 Device 4 (four) times a day before meals and nightly 1 each 1 07/08/20 21 Active atorvastatin (LIPITOR) 10 mg tablet Take 1 tablet (10 mg total) by mouth every morning 90 tablet 2 10/30/20 21 Active carvediloL (COREG) 25 mg tabletIndication s:Essential hypertension Take 1 tablet (25 mg total) by mouth 2 (two) times a day with meals 60 tablet 11 11/24/19 23 Active amLODIPine (NORVASC) 10 mg tablet Take 1 tablet (10 mg total) by mouth daily 30 tablet 11 11/28/19 23 Active losartan (Cozaar) 100 mg tabletIndication s:Essential hypertension Take 1 tablet (100 mg total) by mouth daily 90 tablet 3 03/16/20 23 Active albuterol HFA (PROVENTIL HFA,VENTOLIN HFA,PROAIR HFA) 90 mcg/actuation inhaler Inhale 2 puffs every 6 (six) hours as needed for wheezing or shortness of breath 05/26/20 23 Active Advair Diskus 100-50 mcg/dose diskus inhaler Inhale 1 puff 2 (two) times a day 05/27/20 23 Active gabapentin (NEURONTIN) 400 mg capsule Take 2 capsules (800 mg total) by mouth nightly 05/26/20 23 Active calcium acetate,phosphat bind, (PHOSLO) 667 mg capsule Take 2 capsules (1,334 mg total) by mouth 3 (three) times a day with meals Active ferrous sulfate 325 mg (65 mg of elemental iron) tablet Take 1 tablet (325 mg total) by mouth 2 (two) times a day 05/26/[address] (PROTONIX) 40 mg EC tablet Take 1 tablet (40 mg total) by mouth 2 (two) times a day For 30 days, then 40mg PO daily 60 tablet 11 06/06/20 Active insulin glargine (LANTUS, SEMGLEE) 100 unit/mL vial for injection Inject 24 Units under the skin every morning 10 mL 06/30/20 Active insulin lispro (HumaLOG, ADMELOG) 100 unit/mL vial for injection Inject 0-10 Units under the skin 4 (four) times a day (with meals and nightly) 10 mL 06/29/20 Active insulin lispro (HumaLOG, ADMELOG) 100 unit/mL vial for injection Inject 12 Units under the skin 3 (three) times a day with meals 10.8 mL 06/29/20 Active citalopram (CeleXA) 10 mg tablet Take 1 tablet (10 mg total) by mouth daily 08/23/20 Active traZODone (DESYREL) 100 mg tabletIndication s:Insomnia, unspecified type Take 1 tablet (100 mg total) by mouth nightly as needed for sleep 30 tablet 2 09/28/20 Active benzonatate (TESSALON) 100 mg capsuleIndicatio ns:Cough Take 1 capsule (100 mg total) by mouth 3 (three) times a day as needed for cough 30 capsule 10/28/20 Active Active Problems Problem Noted Date Diagnosed Date Abscess of right leg 11/21/2023 Arm swelling 08/19/2023 Swelling of right upper extremity 08/18/2023 Positive D dimer 08/18/2023 Type 1 diabetes mellitus 07/24/2023 Hypertensive disorder 07/24/2023 Chronic diastolic heart failure 07/21/2023 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/HCC) 07/18/2023 Altered mental status 07/18/2023 SOB (shortness of breath) on exertion 07/18/2023 Uremic encephalopathy 07/18/2023 Transaminitis 07/18/2023 Fluid overload, unspecified 06/16/2023 Recent melena 06/03/2023 Anemia requiring transfusions 06/03/2023 Secondary hyperparathyroidism of renal origin Need for vaccination 06/02/2023 Iron deficiency anemia, unspecified 06/02/2023 ESRD (end stage renal disease) ([facility]) 019 Overview (07/24/2023): Added automatically from request for surgery [id number] Hypertensive urgency 09/25/2019 Assessment & Plan (09/25/2019 3:43 PM [facility]): 222/116 upon admit. S/p IV hydralazine with improvement to 173/97. Resume home enalapril bid. Prn IV enalapril while NPO. Elevated brain natriuretic peptide (BNP) level 1 11/25/2018 Assessment & Plan (09/25/2019 3:44 PM [facility]): No history of CHF. BNP 1877 on admit. Initial troponin 30. Will obtain echo and evaluate. Continue serial troponin. Telemetry monitoring. Anemia 09/25/2019 Assessment & Plan (09/25/2019 3:45 PM [facility]): H&H is at her baseline. Will follow. Leukocytosis 09/25/2019 Assessment & Plan (09/25/2019 3:50 PM [facility]): Possibly reactive. Check UA and CXR. Influenza A/B negative. Labs in am. Diabetic ketoacidosis withou t coma associated with type 2 diabetes mellitus ([facility]) 08/10/2019 Assessment & Plan (09/25/2019 3:51 PM [facility]): Currently on insulin stabilizer. IVF. NPO. Endocrinology has been consulted for which we appreciate their evaluation and recommendations. A1c 10.0 in 07/2019. Intractable vomiting 08/10/2019 SHELLI-inhibitor cough 08/10/2019 Hyperosm[address] non-ketotic sta te in patient with type 2 diabetes mellitus ([facility]) 06/08/2019 Cholelithiasis 06/08/2019 Gastroparesis 04/15/2019 Neuropathy 04/14/2019 GERD (gastroesophageal reflux disease) 9 Assessment & Plan (09/25/2019 3:45 PM [facility]): PPI. Diabetes mellitus 04/14/2019 Abdominal pain, generalized 04/13/2019 Overview (04/14/2019): Added automatically from request for surgery [id number] Intractable cyclical vomiting with nausea 2018 Overview (04/14/2019): Added automatically from request for surgery [id number] Essential hypertension 02/02/2019 Renal osteodystrophy 01/28/2019 Diarrhea 06/28/2018 Nausea and vomiting 06/28/2018 Assessment & Plan (09/25/2019 3:40 PM [facility]): Suspect gastroparesis exacerbation. Prn Reglan IV. IVF. NPO. Prn analgesics. Hyperkalemia 01/09/2016 Proteinuria 01/09/2016 Esophageal candidiasis (CMS/HCC) Right upper quadrant abdominal pain Hyperglycemia Immunizations Immunization Administration Dates Next Due Hep B, Adolescent or Pediatric 06/02/2003 Influenza, Quadrivalent, Spl it, Preservative Free, Intramuscular 08/12/2019 Influenza, Trivalent, IM (MDV) 01/09/2016 PPD TEST 12/16/2023 Pfizer SARS-CoV-2 Monovalent Vaccination (12+ Yrs) DREW-READY TO USE 06/27/2022 Pfizer SARS-CoV-2 Monovalent Vaccination (12+ Yrs) PURPLE 02/13/2021,01/23/2021 Pneumococcal Conjugate PCV 13 01/09/2016 Pneumococcal Polysaccharide PPV23 10/26/2019 Td, adsorbed 12/24/2016,09/19/2000 Social History Tobacco Use Types Packs/Day Years Used Date Smoking Tobacco: Heavy Smoker Cigarettes 0.5 24.1 Started: 2000 Smokeless Tobacco: Never Tobacco Cessation:Ready to Q uit: Not Asked; Counseling Given: Not Answered Comments:she does smoke marajuana Alcohol Use Standard Drinks/Week Comments No 0 (1 standard drink = 0.6 oz pur e alcohol) [facility] Utilities Answer Date Recorded In the past 12 months has [employer], gas, oil, or water [employer] threatened to shut off services in your home? No 11/25/2023 Social Connection and Isolat ion Panel [NHANES] Answer Date Recorded In a typical week, how many times do you talk on the phone with family, friends, or neighbors? More than three times a week 11/25/2023 How often do you get togethe r with friends or relatives? More than three times a week 11/25/2023 How often do you attend chur ch or synagogue services? More than 4 times per year 11/25/2023 Do you belong to any clubs o r organizations such as cheondoism groups, unions, fraternal or athletic groups, or school groups? Yes 11/25/2023 How often do you attend meet ings of the clubs or organizations you belong to? More than 4 times per year 11/25/2023 Are you , , di vorced, , never , or living with a partner? Never 11/25/2023 AUDIT-C Answer Date Recorded Q1: How often do you have a drink containing alcohol? Never 11/25/2023 Q2: How many drinks containi ng alcohol do you have on a typical day when you are drinking? Patient does not drink Q3: How often do you have si x or more drinks on one occasion? Never 11/25/2023 Overall Financial Resource Strain (CARDIA) Answe r Date Recorded How hard is it for you to pa y for the very basics like food, housing, medical care, and heating? Not very hard 11/25/2023 PHQ-2 Answer Date Recorded PHQ-2 Total Score 0 08/20/2023 [facility] Answer Date Recorded Do you feel stress - tense, restless, nervous, or anxious, or unable to sleep at night because your mind is troubled all the time - these days? Not at all 11/25/2023 Exercise Vital Sign Answer Date Recorde d [...] the money to buy more. Never true 11/25/19 24 Within the past 12 months, t he food you bought just didn't last and you didn't have money to get more. Never true 11/25/2023 PRAPARE - Transportation Answer Date Re corded In the past 12 months, has l ack of transportation kept you from medical appointments or from getting medications? No 11/16 In the past 12 months, has l ack of transportation kept you from meetings, work, or from getting things needed for daily living? No 11/25/2023 Housing Stability Vital Sign Answer Gianluca e Recorded In the last 12 months, was t here a time when you were not able to pay the mortgage or rent on time? No 11/25/2023 In the last 12 months, how many places have you lived? 1 11/25/2023 In the last 12 months, was t here a time when you did not have a steady place to sleep or slept in a nursing home (including now)? No 11/25/2023 Personal Safety Answer Date Recorded Have you ever been in or are you currently in a harmful physical or emotional relationship or is someone making you feel afraid or unsafe? Denies 12/10/2023 Comments No Sex and Gender Information Value Date Recorded Sex Assigned at Not on file Legal Sex Female 7:07 PM [facility] Gender Identity Not on file Sexual Orientation Not on file Last Filed Vital Signs Vital Sign Reading Time Taken Comments Blood Pressure 211/110 12/21/2023 4:26 PM [facility] Pulse 75 12/21/2023 4:26 PM [facility] Temperature 36.7 C (98 F) 12/10/2023 9:15 AM [facility] Respiratory Rate 16 12/10/2023 9:15 AM [facility] Oxygen Saturation 100% 12/10/2023 9:15 AM [facility] Inhaled Oxygen Concentration - - Weight 78.5 kg (173 lb) 12/10/2023 9:15 AM [facility] Height 167.6 cm (5' 6 ) 12/10/2023 9:15 AM [facility] Body Mass Index 27.92 12/10/2023 9:15 AM [facility] Results * Hepatitis C antibody Serum (12/21/2023 12:00 AM [facility]) Hep C Ab Nonreactive Nonreactive [facility] Comment:No HCV antibody dete cted.The above test result was obtained using Revistronicaur XPchemiluminescent method. Results obtained with different assay methodsor kits cannot be used interchangeably. HCV s/co ratio 0.07 0.00 - 0.79 [facility] Comment:s/co ratio Interpret ation Supplemental testing<0.80 Nonreactive No further testing required.0.80-0.99 Equivocal HCV RNA Quantitative Real-Time PCRis recommended.1.00->11.00 Reactive HCV RNA Quantitative Real-Time PCRis recommended to distinguish active from resolvedcases. Serum 12/21/2023 12/23/2023 Narrative [email or web address] - 12/23/2023 2:28 PM [facility] Unless otherwise specified, test(s) performed at:[facility], [address] [place], [place] [address]LABORATORY DIRECTOR: Jordan Woodard M.D. Landy Rdz MD LAB MICROBIOLOGY - G ENERAL ORDERABLES Final Result Repair Report * eGFR (11/26/2023 2:50 AM [facility]) eGFR 16 mL/min/1. 73 m2 [facility] Comment: Interpretive Data Reference Interval Normal >/= 90 mL/min/1.73m2 Mildly decreased* 60 - 89 mL/min/1.73m2 Mildly to moderately decreased 45 - 59 mL/min/1.73m2 Moderately to severely decreased 30 - 44 mL/min/1.73m2 Severely decreased 15 - 29 mL/min/1.73m2 Kidney Failure < 15 mL/min/1.73m2 *Relative to young adult level Estimated glomerular filtration rate is determined by the 2020 CKD-EPI equation recommended by the National Kidney Foundation (A Unifying Approach to GFR Estimation: Recommendations of the NKF-ASK Task Force on Reassessing the Inclusion of Race in Diagnosing Kidney Disease, JASN 202). The CKD-EPI equation should not be used for patients with unstable renal function and has not been validated in children and those over 70. Current interpretive data was last reviewed 2021. Blood 11/26/2023 2:50 AM [facility] 11/26/2023 3:38 AM [facility] us Landy Rdz MD LAB BLOOD ORDERABLES Final Result Performing Organization Address City/[facility] Co de Phone Number [facility] [id number] Department [place] [address] * (ABNORMAL) Hemoglobin A1c (11/18/2023 12:00 AM [facility]) Hemoglobin A1C 7.9(H) 4.8 - 5.9 % Repair Report Blood 11/18/2023 11/19/2023 Narrative [email or web address] - 11/20/2023 12:11 PM [facility] Unless otherwise specified, test(s) performed at:[facility] [email or web address] DIRECTOR: Jordan Woodard M.D. us Notinfile Unknown LAB BLOOD ORDERABLES Final Res ult Performing Organization Address City/[facility] Co de Phone Number Repair Report * Lipid panel (08/19/2023 1:29 AM CDT) Cholesterol 93 30 - 199 mg/dL [facility] Comment: Interpretive Data Ages < or = 19 years Acceptable: <170 mg/dL Borderline high: 170-199 mg/dL High: >or= 200 mg/dL Ages > or = 20 years Desirable: <200 mg/dL Borderline high: 200-239 mg/dL High: >or= 240 mg/dL Literature References: 1. Expert Panel on Integrated Guidelines for Cardiovascular Health and Risk Reduction in Children and Adolescents. Pediatrics 2011;128:S213 2. NCEP Expert Panel. Circulation 2004;110:227 Current Interpretive Data was last revised on 2018. Triglycerides 44 <=149 mg/dL [facility] Comment: Interpretive Data Ages < or = 9 years Acceptable: <75 mg/dL Borderline high: 75-99 mg/dL High: >or= 100 mg/dL Ages 10 to 20 years Acceptable: <90 mg/dL Borderline high: 90-129 mg/dL High: >or= 130 mg/dL Ages > or = 20 years Desirable: <150 mg/dL Borderline high: 150-199 mg/dL High: 200-499 mg/dL Very high: >or= 499 mg/dL Literature References: 1. Expert Panel on Integrated Guidelines for Cardiovascular Health and Risk Reduction in Children and Adolescents. Pediatrics 2011;128:S213 2. NCEP Expert Panel. Circulation 2004;110:227 Current Interpretive Data was last revised on 2018. HDL 53 >=40 mg/dL [facility] Comment: Interpretive Data Ages < or = 19 years Acceptable: >45 mg/dL Borderline low: 40-45 mg/dL Low: <40 mg/dL Ages > or = 20 years Desirable: >or= 60 mg/dL Low: <40 mg/dL Literature References: 1. Expert Panel on Integrated Guidelines for Cardiovascular Health and Risk Reduction in Children and Adolescents. Pediatrics 2011;128:S213 2. NCEP Expert Panel. Circulation 2004;110:227 Current Interpretive Data was last revised on 2018. LDL, calculated 31 <=129 mg/dL [facility] Comment: Interpretive Data Ages < or = 19 years Acceptable: <110 mg/dL Borderline high: 110-129 mg/dL High: >or= 130 mg/dL Ages > or = 20 years Optimal: <100 mg/dL Near optimal: 100-129 mg/dL Borderline high: 130-159 mg/dL High: >160 mg/dL Literature References: 1. Expert Panel on Integrated Guidelines for Cardiovascular Health and Risk Reduction in Children and Adolescents. Pediatrics 2011;128:S213 2. NCEP Expert Panel. Circulation 2004;110:227 Current Interpretive Data was last revised on 2018. Non-HDL Cholesterol 40 mg/dL [facility] Comment: Interpretive Data Ages < or = 19 years Acceptable: <120 mg/dL Borderline high: 120-144 mg/dL High: >145 mg/dL Ages > or = 20 years When triglycerides are >200 mg/dL, Non-HDL cholesterol is a secondary target of therapy with treatment goals that are 30 mg/dL greater than the LDL cholesterol target. Literature References: 1. Expert Panel on Integrated Guidelines for Cardiovascular Health and Risk Reduction in Children and Adolescents. Pediatrics 2011;128:S213 2. NCEP Expert Panel. Circulation 2004;110:227 Current Interpretive Data was last revised on 2018. Chol/HDL ratio 2 [facility] Blood 08/19/2023 1:29 AM CDT 08/19/2023 1:53 AM CDT us Katherine Galdamez MD LAB BLOOD ORDERABLES Final Re sult [facility] Department [place] [address] from Last 3 Months or Most Recently Relevant to Health Maintenance
--- OUTSIDE RECORDS SUMMARY | 2025-01-09 18:55 | XMS_ITS | Referral Summary ---
Author Organization [facility] Address [address] [place] [id number] Care Team Providers Care Sand Bobber Name Role Phone Anna Cobian MD Primary Care Provid er Prakash Dash MD Unavailable [phone] Srinivasa Herbert MD Unavailable Tina Winter [facility] Unavailable [phone] Leticia Thomas MD Unavailable Allergies No known active allergies Medications acetaminophen [...] pen needle, diabetic (Lite Touch Insulin Pen [place]) 31 gauge x 3/16 needleIndication s:Diabetes Mellitus [...] 40mg PO daily 60 tablet 11 06/06/20 23 Active insulin glargine (LANTUS, SEMGLEE) 100 unit/mL vial for injection Inject 24 Units under the skin every morning 10 mL 06/30/20 23 Active insulin lispro (HumaLOG, ADMELOG) 100 unit/mL vial for injection Inject 0-10 Units under the skin 4 (four) times a day (with meals and nightly) 10 mL 06/29/20 23 Active insulin lispro (HumaLOG, ADMELOG) 100 unit/mL vial for injection Inject 12 Units under the skin 3 (three) times a day with meals 10.8 mL 06/29/20 23 Active citalopram (CeleXA) 10 mg tablet Take [...] heart failure 07/21/2023 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[facility]) 07/21/2023 Acute encephalopathy 07/19/2023 High anion gap metabolic acidosis 07/19/2023 Hyperbilirubinemia 07/19/2023 Hyperphosphatemia 07/19/2023 Hypoalbuminemia 07/19/2023 Hyponatremia 07/19/2023 Thrombocytopenia, secondary 07/19/2023 Volume overload 07/19/2023 Acute respiratory failure with hypoxia ([facility]) 07/18/2023 Altered mental status 07/18/2023 SOB (shortness of breath) on exertion 07/18/2023 Uremic encephalopathy 07/18/2023 Transaminitis 07/18/2023 Fluid overload, unspecified 06/16/2023 Recent melena 06/03/2023 Anemia requiring transfusions 06/03/2023 Secondary hyperparathyroidism of renal origin Need for vaccination 06/02/2023 Iron deficiency anemia, unspecified 06/02/2023 ESRD (end stage renal disease) ([facility]) 019 Overview (07/24/2023): Added automatically from request for surgery [id number] Hypertensive urgency 09/25/2019 Assessment & Plan (09/25/2019 3:43 PM REGULATORY INTERN): 222/116 upon admit. S/p IV hydralazine with improvement to 173/97. Resume home enalapril bid. Prn IV enalapril while NPO. Elevated brain natriuretic peptide (BNP) level 1 11/25/2018 Assessment & Plan (09/25/2019 3:44 PM REGULATORY INTERN): No history of CHF. BNP 1877 on admit. Initial troponin 30. Will obtain echo and evaluate. Continue serial troponin. Telemetry monitoring. Anemia 09/25/2019 Assessment & Plan (09/25/2019 3:45 PM REGULATORY INTERN): H&H is at her baseline. Will follow. Leukocytosis 09/25/2019 Assessment & Plan (09/25/2019 3:50 PM REGULATORY INTERN): Possibly reactive. Check UA and CXR. Influenza A/B negative. Labs in am. Diabetic ketoacidosis withou t coma associated with type 2 diabetes mellitus ([facility]) 08/10/2019 Assessment & Plan (09/25/2019 3:51 PM REGULATORY INTERN): Currently on insulin stabilizer. IVF. NPO. Endocrinology has been consulted for which we appreciate their evaluation and recommendations. A1c 10.0 in 07/2019. Intractable vomiting 08/10/2019 SHELLI-inhibitor cough 08/10/2019 [address] non-ketotic sta te in patient with type 2 diabetes mellitus ([facility]) 06/08/2019 Cholelithiasis 06/08/2019 Gastroparesis 04/15/2019 Neuropathy 04/14/2019 GERD (gastroesophageal reflux disease) 9 Assessment & Plan (09/25/2019 3:45 PM REGULATORY INTERN): PPI. Diabetes mellitus 04/14/2019 Abdominal pain, generalized 04/13/2019 Overview (04/14/2019): Added automatically from request for surgery [id number] Intractable cyclical vomiting with nausea 2018 Overview (04/14/2019): Added automatically from request for surgery [id number] Essential hypertension 02/02/2019 Renal osteodystrophy 01/28/2019 Diarrhea 06/28/2018 Nausea and vomiting 06/28/2018 Assessment & Plan (09/25/2019 3:40 PM REGULATORY INTERN): Suspect gastroparesis exacerbation. Prn Reglan IV. IVF. NPO. Prn analgesics. Hyperkalemia 01/09/2016 Proteinuria 01/09/2016 Esophageal candidiasis ([facility]) Right upper quadrant abdominal pain Hyperglycemia Resolved Problems Problem Noted Date Diagnosed Date Resolved Date Anemia of chronic disease 07/19/2023 Anemia of chronic renal failure 06/02/2023 07/24/2023 Stage 5 chronic kidney disea se not on chronic dialysis ([facility]) 05/26/2019 07/24/2023 Overview (05/26/2019): Added automatically from request for surgery [id number] Assessment & Plan (09/25/2019 3:42 PM REGULATORY INTERN): S/p AV fistula placement 06/2019. Nephrology has been consulted for which we appreciate their evaluation and recommendations. Plan for HD in near future. Stage 4 chronic kidney disease ([facility]) 01/28/2019 07/24/2023 Immunizations Immunization Administration Dates Next Due Hep [...] drink = 0.6 oz pur e alcohol) [facility] Utilities Answer Date Recorded In the past 12 months has [employer], gas, oil, or water [employer] threatened to shut off services in your [...] often do you attend chur ch or pentecostal services? More than 4 times per year 11/25/2023 Do you belong to any clubs o r organizations such as yazdanism groups, unions, fraternal or athletic groups, or [...] Date Recorded PHQ-2 Total Score 0 08/20/2023 [facility] - Occupational [...] place to sleep or slept in a mcc (including now)? No 11/25/2023 Personal Safety Answer Date Recorded Have you ever been in or are you currently in a harmful physical or emotional relationship or is someone making you feel afraid or unsafe? Denies 12/10/2023 Comments No Sex and Gender Information Value Date Recorded Sex Assigned at Not on file Legal Sex Female 7:07 PM REGULATORY INTERN Gender Identity Not on file Sexual Orientation Not on file Last Filed Vital Signs Vital Sign Reading Time Taken Comments Blood Pressure 211/110 12/21/2023 4:26 PM REGULATORY INTERN Pulse 75 12/21/2023 4:26 PM REGULATORY INTERN Temperature 36.7 C (98 F) 12/10/2023 9:15 AM REGULATORY INTERN Respiratory Rate 16 12/10/2023 9:15 AM REGULATORY INTERN Oxygen Saturation 100% 12/10/2023 9:15 AM REGULATORY INTERN Inhaled Oxygen Concentration - - Weight 78.5 kg (173 lb) 12/10/2023 9:15 AM REGULATORY INTERN Height 167.6 cm (5' 6 ) 12/10/2023 9:15 AM REGULATORY INTERN Body Mass Index 27.92 12/10/2023 9:15 AM REGULATORY INTERN Plan of Treatment Not on file Procedures Procedure Name Priority Date/Time Associated Diagnosis Comments HEPATITIS C ANTIBODY Routine 12/21/2023 12:00 AM REGULATORY INTERN ESRD (end stage renal disease) (CMS/HCC) (HCC) EGFR Routine 11/26/2023 2:50 AM REGULATORY INTERN HEMOGLOBIN A1C 11/18/2023 12:00 AM REGULATORY INTERN LIPID PANEL STAT 08/19/2023 1:29 AM CDT from Last 3 Months or Most Recently Relevant to Health Maintenance Results * Hepatitis C antibody Serum (12/21/2023 12:00 AM REGULATORY INTERN) Pathologist [facility] Hep C Ab Nonreactive Nonreactive [facility] Comment:No HCV antibody dete cted.The above test result was obtained using Siemens [email or web address] XPchemiluminescent method. Results obtained with different assay methodsor kits cannot be used interchangeably. HCV s/co ratio 0.07 0.00 - 0.79 [facility] Comment:s/co ratio Interpret ation Supplemental testing<0.80 Nonreactive No further testing required.0.80-0.99 Equivocal HCV RNA Quantitative Real-Time PCRis recommended.1.00->11.00 Reactive HCV RNA Quantitative Real-Time PCRis recommended to distinguish active from resolvedcases. Serum 12/21/2023 12/23/2023 Narrative [email or web address] - 12/23/2023 2:28 PM REGULATORY INTERN Unless otherwise specified, test(s) performed at:[facility], [address] [place] [address] [id number] DIRECTOR: Jordan Woodard M.D. Landy Rdz MD LAB MICROBIOLOGY - G ENERAL ORDERABLES Final Result [facility] * eGFR (11/26/2023 2:50 AM REGULATORY INTERN) Pathologist [facility] eGFR 16 mL/min/1. 73 m2 DEEPAK DEWITT [...] of Race in Diagnosing Kidney Disease, JASN 2020). The CKD-EPI equation should not be used for patients with unstable renal function and has not been validated in children and those over 70. Current interpretive data was last reviewed 2021. Blood 11/26/2023 2:50 AM REGULATORY INTERN 11/26/2023 3:38 AM REGULATORY INTERN Landy Rdz MD LAB BLOOD ORDERABLES Final Result Performing Organization Address City/[facility]/ZIP Co de Phone Number DEEPAK [address] Department [place] [address] * (ABNORMAL) Hemoglobin A1c (11/18/2023 12:00 AM REGULATORY INTERN) Hemoglobin A1C 7.9(H) 4.8 - 5.9 % [facility] Blood 11/18/2023 11/19/2023 Narrative [email or web address] - 11/20/2023 12:11 PM REGULATORY INTERN Unless otherwise specified, test(s) performed at:[facility], [address] [place] [address] [id number] DIRECTOR: Jordan Woodard M.D. us Not[employer]ile Unknown LAB BLOOD ORDERABLES Final Res ult [facility] * Lipid panel (08/19/2023 1:29 AM CDT) Cholesterol 93 30 - 199 mg/dL [facility] Comment: Interpretive Data Ages [...] revised on 2018. Triglycerides 44 <=149 mg/dL [facility] Comment: Interpretive Data Ages < [...] revised on 2018. HDL 53 >=40 mg/dL [facility] Comment: Interpretive Data Ages < or = 19 years Acceptable: >45 mg/dL Borderline low: 40-45 mg/dL Low: <40 mg/dL Ages > or = 20 years Desirable: >or= 60 mg/dL Low: <40 mg/dL Literature References: 1. Expert Panel on Integrated Guidelines for Cardiovascular Health and Risk Reduction in Children and Adolescents. Pediatrics 2011;128:S213 2. NCEP Expert Panel. Circulation 2003;110:227 Current Interpretive Data was last revised on 2018. LDL, calculated 31 <=129 mg/dL [facility] Comment: Interpretive Data Ages < [...] revised on 2018. Non-HDL Cholesterol 40 mg/dL [facility] Comment: Interpretive Data Ages < [...] last revised on 2018. Chol/HDL ratio 2 [facility] Blood 08/19/2023 1:29 AM CDT 08/19/2023 1:53 AM CDT us Katherine Galdamez MD LAB BLOOD ORDERABLES Final Re sult [facility] Department [place] [address] from Last 3 Months or Most Recently Relevant to Health Maintenance Insurance [place] [employer]AN [facility] Member Subscriber Plan / Payer (Ef fective 2019-Present) Name:Celeste Waters Deborah Relation to Subscriber:Self Name:Celeste Waters Deborah Payer ID:[id number] Group ID:Not on file Type:MEDICAID [place] Address: [address] MEDICARE COMMUNITY PLAN Member Subscriber Plan / Payer (Ef fective 2023-Present) Name:Celeste Waters Deborah Relation to Subscriber:Self Name:Celeste Waters Payer ID:[id number] (NAIC) Group ID:Not on file Type:[employer] MEDICARE Address: [place] [id number] [facility] MEDICARE COMMUNITY PLAN Advance Directives For more information, please contact: [phone] * Full Code (Latest Code Status on File) Date Activated Date Inactivated Comments 11/21/2023 5:20 PM 11/26/2023 6:46 PM * Full Code Date Activated Date Inactivated Comments 10/23/2023 5:03 PM 10/28/2023 10:27 PM * Full Code Date Activated Date Inactivated Comments 08/19/2023 9:27 PM 08/23/2023 11:09 PM * Full Code Date Activated Date Inactivated Comments 08/18/2023 9:58 PM 08/18/2023 10:59 PM * Full Code Date Activated Date Inactivated Comments 06/03/2023 10:56 PM 06/06/2023 4:40 PM Care Teams Sand Bobber Relationship Specialty Start Date End Date Anna Cobian MD PCP - General 06/27/18 [place] [id number] [place] [address] Consulting Physician Endocrinology 09/29/19 [place] [id number] [place] [address] Consulting Physician Gastroenterology 06/06/23 Tina Winter, [facility] [address] [place] [address] Foundry Operator Nephrology 08/10/23 Leticia Thomas MD [address] [address] Consulting Physician Internal Medicine 10/28/23
--- OUTSIDE RECORDS SUMMARY | 2025-01-09 18:55 | XMS_ITS | Clinical Summary ---
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[facility]) 07/21/2023 Acute encephalopathy 07/19/2023 High anion gap metabolic acidosis 07/19/2023 Hyperbilirubinemia 07/19/2023 Hyperphosphatemia 07/19/2023 Hypoalbuminemia 07/19/2023 Hyponatremia 07/19/2023 Thrombocytopenia, secondary 07/19/2023 Volume overload 07/19/2023 Acute respiratory failure with hypoxia ([facility]) 07/18/2023 Altered mental status 07/18/2023 SOB (shortness of breath) on exertion 07/18/2023 Uremic encephalopathy 07/18/2023 Transaminitis 07/18/2023 Fluid overload, unspecified 06/16/2023 Recent melena 06/03/2023 Anemia requiring transfusions 06/03/2023 Secondary hyperparathyroidism of renal origin Need for vaccination 06/02/2023 Iron deficiency anemia, unspecified 06/02/2023 ESRD (end stage renal disease) ([facility]) 019 Overview (07/24/2023): Added automatically from request for surgery [id number] Hypertensive urgency 09/25/2019 Assessment & Plan (09/25/2019 3:43 PM [employer]): 222/116 upon admit. S/p IV hydralazine with improvement to 173/97. Resume home enalapril bid. Prn IV enalapril while NPO. Elevated brain natriuretic peptide (BNP) level 1 11/25/2018 Assessment & Plan (09/25/2019 3:44 PM [employer]): No history of CHF. BNP 1877 on admit. Initial troponin 30. Will obtain echo and evaluate. Continue serial troponin. Telemetry monitoring. Anemia 09/25/2019 Assessment & Plan (09/25/2019 3:45 PM [employer]): H&H is at her baseline. Will follow. Leukocytosis 09/25/2019 Assessment & Plan (09/25/2019 3:50 PM [employer]): Possibly reactive. Check UA and CXR. Influenza A/B negative. Labs in am. Diabetic ketoacidosis withou t coma associated with type 2 diabetes mellitus ([facility]) 08/10/2019 Assessment & Plan (09/25/2019 3:51 PM [employer]): Currently on insulin stabilizer. IVF. NPO. Endocrinology has been consulted for which we appreciate their evaluation and recommendations. A1c 10.0 in 07/2019. Intractable vomiting 08/10/2019 SHELLI-inhibitor cough 08/10/2019 Hyperosmolar non-ketotic sta te in patient with type 2 diabetes mellitus ([facility]) 06/08/2019 Cholelithiasis 06/08/2019 Gastroparesis 04/15/2019 Neuropathy 04/14/2019 GERD (gastroesophageal reflux disease) 9 Assessment & Plan (09/25/2019 3:45 PM [employer]): PPI. Diabetes mellitus 04/14/2019 Abdominal pain, generalized 04/13/2019 Overview (04/14/2019): Added automatically from request for surgery [id number] Intractable cyclical vomiting with nausea 2018 Overview (04/14/2019): Added automatically from request for surgery [id number] Essential hypertension 02/02/2019 Renal osteodystrophy 01/28/2019 Diarrhea 06/28/2018 Nausea and vomiting 06/28/2018 Assessment & Plan (09/25/2019 3:40 PM [employer]): Suspect gastroparesis exacerbation. Prn Reglan IV. IVF. NPO. Prn analgesics. Hyperkalemia 01/09/2016 Proteinuria 01/09/2016 Esophageal candidiasis ([facility]) Right upper quadrant abdominal pain Hyperglycemia Resolved Problems Problem Noted Date Diagnosed Date Resolved Date Anemia of chronic disease 07/19/2023 Anemia of chronic renal failure 06/02/2023 07/24/2023 Stage 5 chronic kidney disea se not on chronic dialysis ([facility]) 05/26/2019 07/24/2023 Overview (05/26/2019): Added automatically from request for surgery [id number] Assessment & Plan (09/25/2019 3:42 PM [employer]): S/p AV fistula placement 06/2019. Nephrology has been consulted for which we appreciate their evaluation and recommendations. Plan for HD in near future. Stage 4 chronic kidney disease ([facility]) 01/28/2019 07/24/2023 Immunizations Immunization Administration Dates Next Due Hep B, Adolescent or Pediatric 06/02/2003 Influenza, Quadrivalent, Spl it, Preservative Free, Intramuscular 08/12/2019 Influenza, Trivalent, IM (MDV) 01/09/2016 PPD TEST 12/16/2023 Pfizer SARS-CoV-2 Monovalent Vaccination (12+ Yrs) DREW-READY TO USE 06/27/2022 Pfizer SARS-CoV-2 Monovalent Vaccination (12+ Yrs) PURPLE 02/13/2021,01/23/2021 Pneumococcal Conjugate PCV 13 01/09/2016 Pneumococcal Polysaccharide PPV23 10/26/2019 Td, adsorbed 12/24/2016,09/19/2000 Surgical History Surgery Date Site/Laterality Comments RETINA SURGERY APPENDECTOMY DIALYSIS FISTULA CREATION Left INJECTION FOR VENOGRAM stenting for stenosis Medical History Medical History Date Comments Kidney disease Diabetes mellitus ([facility]) type 2 Hypertension Neuropathy ([facility]) GERD (gastroesophageal reflux disease) PONV (postoperative nausea and vomiting) PUD (peptic ulcer disease) Acute respiratory failure with hypoxia ([facility]) ([facility]) 07/18/2023 Family History Medical History Relation Name Comments Diabetes Mother Anesthesia problems Neg Hx Relation Name Status Comments Mother Social History Tobacco Use Types Packs/Day Years Used Date Smoking Tobacco: Heavy Smoker Cigarettes 0.5 24.1 Started: 2000 Smokeless Tobacco: Never Tobacco Cessation:Ready to Q uit: Not Asked; Counseling Given: Not Answered Comments:she does smoke marajuana Alcohol Use Standard Drinks/Week Comments No 0 (1 standard drink = 0.6 oz pur e alcohol) [facility] Utilities Answer Date Recorded In the past 12 months has e electric, gas, oil, or water company threatened to shut off services in your [...] often do you attend chur ch or zoroastrian services? More than 4 times per year [...] Date Recorded PHQ-2 Total Score 0 08/20/2023 [facility] [place] [facility] - Occupational Stress [...] place to sleep or slept in a [place] facility (including now)? No 11/25/2023 Personal Safety Answer Date Recorded Have you ever been in or are you currently in a harmful physical or emotional relationship or is someone making you feel afraid or unsafe? Denies 12/10/2023 Comments No Sex and Gender Information Value Date Recorded Sex Assigned at Not on file Legal Sex Female 7:07 PM [employer] Gender Identity Not on file Sexual Orientation Not on file Obstetrics History Last Filed Vital Signs Vital Sign Reading Time Taken Comments Blood Pressure 211/110 12/21/2023 4:26 PM [employer] Pulse 75 12/21/2023 4:26 PM [employer] Temperature 36.7 C (98 F) 12/10/2023 9:15 AM [employer] Respiratory Rate 16 12/10/2023 9:15 AM [employer] Oxygen Saturation 100% 12/10/2023 9:15 AM [employer] Inhaled Oxygen Concentration - - Weight 78.5 kg (173 lb) 12/10/2023 9:15 AM [employer] Height 167.6 cm (5' 6 ) 12/10/2023 9:15 AM [employer] Body Mass Index 27.92 12/10/2023 9:15 AM [employer] Plan of Treatment Health Maintenance Due Date Last Done Comments Albumin Creatinine Ratio, Urine 1985 Cervical Cancer Screening 1985 Foot Exam 1985 Dilated Eye Exam 1995 Varicella Vaccines (1 of 2 - 13+ 2-dose series) 1998 Regular Well Visit/Exam 18-64 2003 DTaP/Tdap/Td Vaccine (1 - Tdap) 12/25/2016 12/24/2016, 09/19/2000 Hemoglobin A1C 05/18/2024 11/18/2023, 12/2022, 06/24/2023, Additional history exists Covid-19 Vaccine ( season) 2024 06/27/2022, 02/13/2021, 01/23/2021 Influenza Vaccine (#1) 2024 08/12/2019, 2015 TSH Level 07/19/2024 07/19/2023 Depression Screening 08/18/2024 08/18/2023 Lipid Panel 08/19/2024 08/19/2023, 09/11/2021 eGFR 11/26/2024 11/26/2023, 11/16, 11/24/2023, Additional history exists Pneumococcal vaccine <65 (3 of 3 - PCV20 or PCV21) 2035 10/26/2019, 01/09/2016 Hepatitis B Screening Completed 12/21/2023, 003 Hepatitis C Screening Completed 12/21/2023 , 11/24/2023, 11/18/2023, Additional history exists HPV Vaccines Aged Out No longer eligi ble based on patient's age to complete this topic Procedures Procedure Name Priority Date/Time Associated Diagnosis Comments HEPATITIS C ANTIBODY Routine 12/21/2023 12:00 AM [employer] ESRD (end stage renal disease) (CMS/HCC) (HCC) EGFR Routine 11/26/2023 2:50 AM [employer] HEMOGLOBIN A1C 11/18/2023 12:00 AM [employer] LIPID PANEL STAT 08/19/2023 1:29 AM CDT from Last 3 Months or Most Recently Relevant to Health Maintenance Results * Hepatitis C antibody Serum (12/21/2023 12:00 AM [employer]) Hep C Ab Nonreactive Nonreactive [facility] Comment:No HCV antibody dete cted.The above test result was obtained using Siemens Centaur XPchemiluminescent method. Results obtained with different assay methodsor kits cannot be used interchangeably. HCV s/co ratio 0.07 0.00 - 0.79 [facility] Comment:s/co ratio Interpret ation Supplemental testing<0.80 Nonreactive No further testing required.0.80-0.99 Equivocal HCV RNA Quantitative Real-Time PCRis recommended.1.00->11.00 Reactive HCV RNA Quantitative Real-Time PCRis recommended to distinguish active from resolvedcases. Serum 12/21/2023 12/23/2023 Narrative [facility] - 12/23/2023 2:28 PM [employer] Unless otherwise specified, test(s) performed at:[facility], [address] [place] [address] [id number] DIRECTOR: Jordan Woodard M.D. Landy Rdz MD LAB MICROBIOLOGY - G ENERAL ORDERABLES Final Result [facility] * eGFR (11/26/2023 2:50 AM [employer]) eGFR 16 mL/min/1. 73 m2 [facility]WITT [...] last reviewed 2021. Blood 11/26/2023 2:50 AM [employer] 11/26/2023 3:38 AM [employer] us Landy Rdz MD LAB BLOOD ORDERABLES Final Result Performing Organization Address City/[facility]/ZIP Co de Phone Number [id number] [id number] Department [place] [address] * (ABNORMAL) Hemoglobin A1c (11/18/2023 12:00 AM [employer]) Hemoglobin A1C 7.9(H) 4.8 - 5.9 % [facility] Blood 11/18/2023 11/19/2023 Narrative [facility] - 11/20/2023 12:11 PM [employer] Unless otherwise specified, test(s) performed at:[facility], [address] [place] [address] [id number] DIRECTOR: Jordan Woodard M.D. us [facility] Unknown LAB BLOOD ORDERABLES Final Res ult [facility] * Lipid panel (08/19/2023 1:29 AM CDT) [...] on 2018. Triglycerides 44 <=149 mg/dL [facility] Comment: Interpretive Data Ages < or = [...] on 2018. HDL 53 >=40 mg/dL [facility] Comment: Interpretive Data Ages < or = [...] on 2018. LDL, calculated 31 <=129 mg/dL [facility] Comment: Interpretive Data Ages < or = [...] revised on 2018. Non-HDL Cholesterol 40 mg/dL [facility] Comment: Interpretive Data Ages < or = [...] last revised on 2018. Chol/HDL ratio 2 [facility] Blood 08/19/2023 1:29 AM CDT 08/19/2023 1:53 AM CDT us Katherine Galdamez MD LAB BLOOD ORDERABLES Final Re sult [facility] Department [place] [address] from Last 3 Months or Most Recently Relevant to Health Maintenance Insurance [place] [employer] [place] [address] [address] MEDICARE [employer] [facility] Member Subscriber Plan / Payer (Ef fective 2019-Present) Name:Celeste Waters Deborah Relation to Subscriber:Self Name:Celeste Waters Deborah Payer ID:[id number] Group ID:Not on file Type:MEDICAID [place] Address: [address] MEDICARE [employer] [facility] Member Subscriber Plan / Payer (Ef fective 2019-Present) Name:Celeste Waters Deborah Relation to Subscriber:Self Name:Celeste Waters Deborah Payer ID:[id number] Group ID:Not on file Type:MEDICAID [place] Address: [address] MEDICARE COMM[employer]ITY PLAN Advance Directives For more information, please contact: [phone] * Full Code (Latest Code Status on [...] 10:56 PM 06/06/2023 4:40 PM Care Teams Sports Official Relationship Specialty Start Date End Date Anna Cobian MD PCP - General 06/27/18 [place] [id number] [address] [facility] [address] [place] [address] Consulting Physician Endocrinology 09/29/19 [place] [address] [address] [facility] [address] [place] [address] Consulting Physician Gastroenterology 06/06/23 Tina Winter, [facility] [address] [place] [address] Unattended Ground Sensor Specialist Nephrology 08/10/23 Leticia Thomas MD [address] [place] [address] Consulting Physician Internal Medicine 10/28/23
--- OUTSIDE RECORDS SUMMARY | 2025-01-09 18:56 | XMS_ITS | Patient Health Summary ---
Author Organization [facility] Address [address] [place] [address] Care Team Providers Care Packing Inspector Name Role Phone Anna Cobian MD Primary Care Provid er Note from [facility],non-owned Affiliates and Associated Physician Practices is amultiple site organization consisting of ambulatory clinics and hospital sitesin [place], [place], [place] and [place]. This disclosure is being madepursuant to the Care Everywhere program and may not contain all information available regarding this patient. Last updated 18.[facility] Allergies No known active allergies Medications * Be aware that medications may not be up to date on this document. Alwaysverify current medications with the patient. * insulin glargine (Lantus/Semglee) 100 units/mL pen(Started 07/26/2023) Inject 40 (forty) Units subcutaneously every 24 hours for 30 days Reasons: Type 2 Diabetes * insulin aspart (NovoLOG FLEXPEN) pen(Started 07/26/2023) Inject 10 (ten) Units subcutaneously 3 times daily before meals for 30 days Reasons: Type 2 Diabetes * atorvastatin (Lipitor) 10 MG tablet(Started 07/26/2023) Take 1 (one) tablet by mouth at bedtime for 30 days Reasons: High Amount of Fats in the Blood * carvedilol (Coreg) 25 MG tablet(Started 07/26/2023) Take 1 (one) tablet by mouth 2 times daily with morning and evening meal for 30 days Reasons: High Blood Pressure Disorder * amLODIPine (Norvasc) 10 MG tablet(Started 07/27/2023) Take 1 (one) tablet by mouth once daily for 30 days Reasons: High Blood Pressure Disorder * epoetin (Epogen; Procrit) 4000 UNIT/ML injection(Started 07/27/2023) 1 mL by Intravenous route Give in dialysis on Thursday, & Thursday * hydrALAZINE (Apresoline) 25 MG tablet(Started 07/26/2023) Take 1 (one) tablet by mouth 3 times daily for 30 days Reasons: High Blood Pressure Disorder * calcium acetate (Phoslo) 667 MG capsule(Started 07/26/2023) Take 1 (one) capsule by mouth 3 times daily with meals for 30 days Reasons: High Amount of Phosphate in the Blood * sevelamer carbonate (Renvela) 800 MG(Started 08/08/2023) Take 3 (three) tablets by mouth 3 times daily with meals for 30 days * pantoprazole EC (Protonix) 40 MG tablet(Started 08/08/2023) Take 1 (one) tablet by mouth daily before breakfast for 30 days Active Problems Problem Noted Date Diagnosed Date Melena 08/06/2023 Chronic diastolic heart failure 07/21/2023 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 Hyponatremia 07/19/2023 Hyperphosphatemia 07/19/2023 Anemia of chronic disease 07/19/2023 Thrombocytopenia, secondary 07/19/2023 Hypoalbuminemia 07/19/2023 ESRD (end stage renal disease) 07/18/2023 Resolved Problems Problem Noted Date Diagnosed Date Resolved Date Volume overload 07/19/2023 07/26/2023 High anion gap metabolic acidosis 07/19/2023 07/26/2023 Hyperbilirubinemia 07/19/2023 Acute encephalopathy 07/19/2023 023 Hyperkalemia 07/18/2023 07/26/2023 Altered mental status, unspe cified altered mental status type 07/18/2023 07/26/2023 Transaminitis 07/18/2023 07/26/2023 Uremic encephalopathy 07/18/20232022 SOB (shortness of breath) on exertion 07/18/2023 07/26/2023 Acute respiratory failure with hypoxia 07/18/2023 07/26/2023 Immunizations * FLU VACCINE TRI IIV3 SPLIT IM (FLUVIRIN)(Given 10/14/2017, 08/20/2016) * INFLUENZA VACCINE, QUADR. (FLUZONE; FLULAVAL; FLUARIX; AFLURIA QUADRIVALENT; 6MO+), 0.5 ML (IIV4)(Given 08/12/2019) * PNEUMOCOCCAL PPSV23(Given 10/26/2019) * Pneumococcal Pcv13 Conj(Given 01/09/2016) * TD (AGE 7-ADULT)(Given 12/24/2016) Social History Tobacco Use Types Packs/Day Years Used Date Smoking Tobacco: Every Day Cigarettes 0.5 22 Tobacco Cessation:Ready to Q uit: Not Asked; Counseling Given: Yes Alcohol Use Standard Drinks/Week Comments Never 0 (1 standard drink = 0.6 oz pur e alcohol) AUDIT-C Answer Date Recorded Q1: How often do you have a drink containing alcohol? Never 07/22/2023 Q2: How many drinks containi ng alcohol do you have on a typical day when you are drinking? Patient does not drink Q3: How often do you have si x or more drinks on one occasion? Never 07/22/2023 Sex and Gender Information Value Date Recorded Sex Assigned at Not on file Gender Identity Not on file Sexual Orientation Not on file Last Filed Vital Signs Vital Sign Reading Time Taken Comments Blood Pressure 140/72 09/10/2023 3:39 PM CDT Pulse 86 09/10/2023 3:39 PM CDT Temperature 36.9 C (98.4 F) 09/10/2023 3:39 PM CDT Respiratory Rate 16 08/08/2023 12:48 PM CDT Oxygen Saturation 96% 09/10/2023 3:39 PM CDT Inhaled Oxygen Concentration 98% 07/20/2023 4 :20 PM CDT Weight 81.2 kg (179 lb) 09/10/2023 3:39 PM CDT Height 167.6 cm (5' 6 ) 09/10/2023 3:39 PM CDT Body Mass Index 28.89 09/10/2023 3:39 PM CDT Procedures * HOME SLEEP STUDY(Performed 10/19/2023) Performed for PATRICIA (obstructive sleep apnea), Chronic diastolic congestive heart failure (HCC), Pulmonary hypertension (HCC), Chronic kidney disease with end stage renal failure on dialysis ([facility]) * PREPARE RBC LEUKOREDUCED UNIT(Performed 08/09/2023) * GLUCOSE - POINT OF CARE(Performed 08/08/2023) * RENAL FUNCTION PANEL(Performed 08/08/2023) Performed for ESRD (end stage renal disease) ([facility]) * MAGNESIUM BLOOD(Performed 08/08/2023) Performed for ESRD (end stage renal disease) ([facility]) * CBC W/O DIFFERENTIAL(Performed 08/08/2023) Performed for Melena * PTH INTACT W/O CALCIUM(Performed 08/08/2023) Performed for ESRD (end stage renal disease) ([facility]) * GLUCOSE - POINT OF CARE(Performed 08/07/2023) * GLUCOSE - POINT OF CARE(Performed 08/07/2023) * CARDIAC EKG ORDER(Performed 08/07/2023) * HEMODIALYSIS INPATIENT(Performed 08/07/2023) * GLUCOSE - POINT OF CARE(Performed 08/07/2023) * GLUCOSE - POINT OF CARE(Performed 08/07/2023) * PATHOLOGY TISSUE(Performed 08/07/2023) Performed for Melena * [place] ED EGD FLEX TRANSORAL DX(Performed 08/07/2023) Performed for Melena * EGD(Performed 08/07/2023) * GLUCOSE - POINT OF CARE(Performed 08/07/2023) * PTH INTACT W/O CALCIUM(Performed 08/07/2023) Performed for ESRD (end stage renal disease) ([facility]), Secondary hyperparathyroidism ([facility]) * BASIC METABOLIC PANEL (CALCIUM TOTAL)(Performed 08/07/2023) Performed for Melena * CBC W/O DIFFERENTIAL(Performed 08/07/2023) Performed for Melena * GLUCOSE - POINT OF CARE(Performed 08/06/2023) * GLUCOSE - POINT OF CARE(Performed 08/06/2023) * GLUCOSE - POINT OF CARE(Performed 08/06/2023) * GLUCOSE - POINT OF CARE(Performed 08/06/2023) * GLUCOSE - POINT OF CARE(Performed 08/06/2023) * GLUCOSE - POINT OF CARE(Performed 08/06/2023) * GLUCOSE - POINT OF CARE(Performed 08/06/2023) * GLUCOSE - POINT OF CARE(Performed 08/06/2023) * GLUCOSE - POINT OF CARE(Performed 08/06/2023) * GLUCOSE - POINT OF CARE(Performed 08/06/2023) * GLUCOSE - POINT OF CARE(Performed 08/06/2023) * HEMODIALYSIS INPATIENT(Performed 08/06/2023) * GLUCOSE - POINT OF CARE(Performed 08/06/2023) * GLUCOSE - POINT OF CARE(Performed 08/06/2023) * GLUCOSE - POINT OF CARE(Performed 08/06/2023) * GLUCOSE - POINT OF CARE(Performed 08/06/2023) * ANTIBODY IDENTIFICATION(Performed 08/06/2023) * ROSANGELA DIRECT(Performed 08/06/2023) * TYPE + SCREEN PANEL(Performed 08/06/2023) * PT-INR SLH(Performed 08/06/2023) * HGB HCT PANEL(Performed 08/06/2023) * PHOSPHORUS BLOOD(Performed 08/05/2023) * MAGNESIUM BLOOD(Performed 08/05/2023) * HCG BETA BLOOD QUANTITATIVE(Performed 08/05/2023) * COMPREHENSIVE METABOLIC PANEL(Performed 08/05/2023) * CBC W AUTO DIFFERENTIAL(Performed 08/05/2023) * EKG 12-LEAD(Performed 08/05/2023) Performed for Melena * PREPARE FFP UNIT(S)(Performed 07/27/2023) * GLUCOSE - POINT OF CARE(Performed 07/26/2023) * GLUCOSE - POINT OF CARE(Performed 07/26/2023) * GLUCOSE - POINT OF CARE(Performed 07/26/2023) * FERRITIN(Performed 07/26/2023) * IRON + TRANSFERRIN PANEL(Performed 07/26/2023) * PT-INR SLH(Performed 07/26/2023) * PHOSPHORUS BLOOD(Performed 07/26/2023) * MAGNESIUM BLOOD(Performed 07/26/2023) * COMPREHENSIVE METABOLIC PANEL(Performed 07/26/2023) * PTT SLH(Performed 07/26/2023) * CBC W AUTO DIFFERENTIAL(Performed 07/26/2023) * GLUCOSE - POINT OF CARE(Performed 07/26/2023) * GLUCOSE - POINT OF CARE(Performed 07/25/2023) * GLUCOSE - POINT OF CARE(Performed 07/25/2023) * GLUCOSE - POINT OF CARE(Performed 07/25/2023) * GLUCOSE - POINT OF CARE(Performed 07/25/2023) * GLUCOSE - POINT OF CARE(Performed 07/25/2023) * PT-INR SLH(Performed 07/25/2023) * PHOSPHORUS BLOOD(Performed 07/25/2023) * MAGNESIUM BLOOD(Performed 07/25/2023) * COMPREHENSIVE METABOLIC PANEL(Performed 07/25/2023) * PTT SLH(Performed 07/25/2023) * CBC W AUTO DIFFERENTIAL(Performed 07/25/2023) * GLUCOSE - POINT OF CARE(Performed 07/25/2023) * GLUCOSE - POINT OF CARE(Performed 07/24/2023) * GLUCOSE - POINT OF CARE(Performed 07/24/2023) * GLUCOSE - POINT OF CARE(Performed 07/24/2023) * PT-INR SLH(Performed 07/24/2023) * PHOSPHORUS BLOOD(Performed 07/24/2023) * MAGNESIUM BLOOD(Performed 07/24/2023) * COMPREHENSIVE METABOLIC PANEL(Performed 07/24/2023) * PTT SLH(Performed 07/24/2023) * CBC W AUTO DIFFERENTIAL(Performed 07/24/2023) * PREPARE RBC LEUKOREDUCED UNIT(Performed 07/24/2023) * GLUCOSE - POINT OF CARE(Performed 07/23/2023) * PTT SLH(Performed 07/23/2023) * GLUCOSE - POINT OF CARE(Performed 07/23/2023) * PTT SLH(Performed 07/23/2023) * GLUCOSE - POINT OF CARE(Performed 07/23/2023) * HEMODIALYSIS INPATIENT(Performed 07/23/2023) * PTT SLH(Performed 07/23/2023) * GLUCOSE - POINT OF CARE(Performed 07/23/2023) * HEPARIN INDUCED PLATELET ANTIBODY W/ RFLX(Performed 07/23/2023) * PTT SLH(Performed 07/23/2023) * GLUCOSE - POINT OF CARE(Performed 07/23/2023) * PHOSPHORUS BLOOD(Performed 07/23/2023) * MAGNESIUM BLOOD(Performed 07/23/2023) * BASIC METABOLIC PANEL (CALCIUM TOTAL)(Performed 07/23/2023) * CBC W/O DIFFERENTIAL(Performed 07/23/2023) * GLUCOSE - POINT OF CARE(Performed 07/22/2023) * GLUCOSE - POINT OF CARE(Performed 07/22/2023) * GLUCOSE - POINT OF CARE(Performed 07/22/2023) * GLUCOSE - POINT OF CARE(Performed 07/22/2023) * COMPREHENSIVE METABOLIC PANEL(Performed 07/22/2023) * PHOSPHORUS BLOOD(Performed 07/22/2023) * CBC W/O DIFFERENTIAL(Performed 07/22/2023) * ELBA BLOOD SCREEN W/REFLEX TITER(Performed 07/22/2023) * MAGNESIUM BLOOD(Performed 07/22/2023) * GLUCOSE - POINT OF CARE(Performed 07/21/2023) * GLUCOSE - POINT OF CARE(Performed 07/21/2023) * GLUCOSE - POINT OF CARE(Performed 07/21/2023) * GLUCOSE - POINT OF CARE(Performed 07/21/2023) * GLUCOSE - POINT OF CARE(Performed 07/21/2023) * IR ANGIO AV SHUNT IMAGING(Performed 07/21/2023) Performed for ESRD (end stage renal disease) (HCC), End stage renal disease (HCC) * GLUCOSE - POINT OF CARE(Performed 07/21/2023) * HEMODIALYSIS INPATIENT(Performed 07/21/2023) * GLUCOSE - POINT OF CARE(Performed 07/21/2023) * VITAMIN E(Performed 07/21/2023) * VITAMIN B6(Performed 07/21/2023) * NIACIN (VITAMIN B3)(Performed 07/21/2023) * CK BLOOD(Performed 07/21/2023) * GLUCOSE - POINT OF CARE(Performed 07/21/2023) * GLUCOSE - POINT OF CARE(Performed 07/21/2023) * GLUCOSE - POINT OF CARE(Performed 07/21/2023) * VITAMIN D 25-HYDROXY(Performed 07/21/2023) * FOLATE(Performed 07/21/2023) * HEPATIC FUNCTION PANEL(Performed 07/21/2023) * PHOSPHORUS BLOOD(Performed 07/21/2023) * BASIC METABOLIC PANEL (CALCIUM TOTAL)(Performed 07/21/2023) * C-REACTIVE PROTEIN(Performed 07/21/2023) * PROCALCITONIN LEVEL(Performed 07/21/2023) * PTT SLH(Performed 07/21/2023) * PT-INR SLH(Performed 07/21/2023) * CBC W/O DIFFERENTIAL(Performed 07/21/2023) * GLUCOSE - POINT OF CARE(Performed 07/21/2023) * GLUCOSE - POINT OF CARE(Performed 07/21/2023) * GLUCOSE - POINT OF CARE(Performed 07/21/2023) * GLUCOSE - POINT OF CARE(Performed 07/21/2023) * GLUCOSE - POINT OF CARE(Performed 07/20/2023) * GLUCOSE - POINT OF CARE(Performed 07/20/2023) * GLUCOSE - POINT OF CARE(Performed 07/20/2023) * GLUCOSE - POINT OF CARE(Performed 07/20/2023) * MRI BRAIN WO CONTRAST(Performed 07/20/2023) Performed for Altered mental status, unspecified altered mental status type, Acute encephalopathy * GLUCOSE - POINT OF CARE(Performed 07/20/2023) * GLUCOSE - POINT OF CARE(Performed 07/20/2023) * BLOOD TYPE VERIFICATION(Performed 07/20/2023) * ANTIBODY IDENTIFICATION(Performed 07/20/2023) * ROSANGELA DIRECT(Performed 07/20/2023) * TYPE + SCREEN PANEL(Performed 07/20/2023) * PT-INR SLH(Performed 07/20/2023) * CBC W/O DIFFERENTIAL(Performed 07/20/2023) * GLUCOSE - POINT OF CARE(Performed 07/20/2023) * CARDIAC EKG ORDER(Performed 07/20/2023) * VAS BILATERAL VENOUS DUPLEX LE(Performed 07/20/2023) Performed for Thrombocytopenia, secondary * GLUCOSE - POINT OF CARE(Performed 07/20/2023) * GLUCOSE - POINT OF CARE(Performed 07/20/2023) * GLUCOSE - POINT OF CARE(Performed 07/20/2023) * XR CHEST 1VW PORTABLE(Performed 07/20/2023) Performed for SOB (shortness of breath) on exertion, Acute respiratory failure with hypoxia (HCC) * GLUCOSE - POINT OF CARE(Performed 07/20/2023) * ELBA BLOOD SCREEN W/REFLEX TITER(Performed 07/20/2023) * ECHO COMPLETE(Performed 07/20/2023) Performed for SOB (shortness of breath) on exertion, Acute encephalopathy * GLUCOSE - POINT OF CARE(Performed 07/20/2023) * HEMODIALYSIS INPATIENT(Performed 07/20/2023) * LUPUS ANTICOAGULANT PANEL(Performed 07/20/2023) * PT-INR SLH(Performed 07/20/2023) * CBC W AUTO DIFFERENTIAL(Performed 07/20/2023) * COMPREHENSIVE METABOLIC PANEL(Performed 07/20/2023) * GLUCOSE - POINT OF CARE(Performed 07/19/2023) * GLUCOSE - POINT OF CARE(Performed 07/19/2023) * US ABDOMEN LTD W COMP DOPPLER(Performed 07/19/2023) Performed for Transaminitis, Hyperbilirubinemia, Thrombocytopenia, secondary, Hypoalbuminemia * GLUCOSE - POINT OF CARE(Performed 07/19/2023) * MRSA DNA PCR(Performed 07/19/2023) * RESPIRATORY PANEL WITH SARS-COV-2 BY PCR (ST[facility])(Performed 07/19/2023) * CULTURE BLOOD(Performed 07/19/2023) * TRICYCLICS ANTIDEPRESSANT CONFIRMATION BLOOD, QUANTITIVE(Performed 07/19/2023) * LACTIC ACID BLOOD(Performed 07/19/2023) * COMPREHENSIVE METABOLIC PANEL(Performed 07/19/2023) * BASIC METABOLIC PANEL (CALCIUM TOTAL)(Performed 07/19/2023) * TRICYCLICS SCREEN BLOOD(Performed 07/19/2023) * ALCOHOL ETHYL BLOOD(Performed 07/19/2023) * VITAMIN B12(Performed 07/19/2023) * AMMONIA(Performed 07/19/2023) * OSMOLALITY BLOOD(Performed 07/19/2023) * SALICYLATE LEVEL BLOOD(Performed 07/19/2023) * ACETAMINOPHEN LEVEL(Performed 07/19/2023) * PT-INR SLH(Performed 07/19/2023) * CULTURE BLOOD(Performed 07/19/2023) * HEPATITIS SCREEN ACUTE(Performed 07/19/2023) * TSH REFLEX FREE T4(Performed 07/19/2023) * PHOSPHORUS BLOOD(Performed 07/19/2023) * MAGNESIUM BLOOD(Performed 07/19/2023) * BASIC METABOLIC PANEL (CALCIUM TOTAL)(Performed 07/19/2023) * CBC W/O DIFFERENTIAL(Performed 07/19/2023) * HEPATITIS B SURFACE ANTIBODY(Performed 07/19/2023) Performed for ESRD (end stage renal disease) (HCC) * HEPATITIS B SURFACE ANTIGEN W RFLX CONFIRMATION(Performed 07/19/2023) Performed for ESRD (end stage renal disease) (HCC) * HEMOGLOBIN A1C(Performed 07/19/2023) * HEMODIALYSIS INPATIENT(Performed 07/19/2023) * GLUCOSE - POINT OF CARE(Performed 07/19/2023) * LACTIC ACID BLOOD REFLEX TO REPEAT(Performed 07/18/2023) * SARS-COV-2 (COVID-19) FLU A/B RSV PCR RAPID(Performed 07/18/2023) * CT HEAD WO CONTRAST(Performed 07/18/2023) Performed for Altered mental status, unspecified altered mental status type * GLUCOSE - POINT OF CARE(Performed 07/18/2023) * BLOOD GASES BRANDIN + COOX PANEL(Performed 07/18/2023) * TROPONIN-I HIGH SENSITIVE REFLEX 1HOUR(Performed 07/18/2023) * XR CHEST 2VW(Performed 07/18/2023) Performed for SOB (shortness of breath) on exertion * PHOSPHORUS BLOOD(Performed 07/18/2023) * MAGNESIUM BLOOD(Performed 07/18/2023) * B-TYPE NATRIURETIC PEPTIDE(Performed 07/18/2023) * TROPONIN-I HIGH SENSITIVE BASELINE + 1HR(Performed 07/18/2023) * COMPREHENSIVE METABOLIC PANEL(Performed 07/18/2023) * CBC W AUTO DIFFERENTIAL(Performed 07/18/2023) * XR ABD OBSTRUCTION SERIES 2VW(Performed 12/04/2017) Performed for Constipation, unspecified constipation type * URINE MICROSCOPIC ONLY REFLEX TO CULTURE(Performed 12/04/2017) * URINALYSIS REFLEX MICROSCOPIC REFLEX CULTURE(Performed 12/04/2017) * LIPASE BLOOD(Performed 12/04/2017) * COMPREHENSIVE METABOLIC PANEL(Performed 12/04/2017) * CBC W AUTO DIFFERENTIAL(Performed 12/04/2017) * LIPASE BLOOD(Performed 12/04/2017) * COMPREHENSIVE METABOLIC PANEL(Performed 12/04/2017) * CBC W AUTO DIFFERENTIAL(Performed 12/04/2017) * [place] ED EGD FLEX TRANSORAL DX Performed for Melena Results * HOME SLEEP STUDY (10/19/2023 11:59 PM ANGLE SHEAR OPERATOR) Narrative Tabatha Lima - 10/19/2023 11:59 PM ANGLE SHEAR OPERATOR Ken Casas MD 11/21/2023 9:36 AM SleepView Interpretation Patient Name: Celeste Waters : 1985 Study Date: 10/19/2023 Referred by: Chandler Childress MD Device Unique Identifier: Interpreted by: Ken Casas MD PATIENT INFORMATION: This 38-year-old Female was referred for a type 3 portable sleep study. Height was 66.0 in and weight was 179.0 lb, which represented a BMI of 28.89. Patient has an [place] score of 13/24. PROCEDURE: The patient underwent a digital diagnostic portable type 3 device home sleep test; Utilizing [employer] DataArt portable sleep monitor. The patient was provided with printed out instructions and access to a 24/7 patient support number with staff surveyor oil well directional to answer any questions regarding the study. Sleep time (identified as AAS equivalent of Monitoring Time [MT] in this report) was recorded via actigraphy derived from an accelerometer physically integrated into the SleepView unit; also providing body position monitoring. Airflow and snore were recorded via an oral/nasal cannula. The option for a 2nd measure of airflow via oral/nasal thermistor is also present. Respiratory effort was recorded via Respiratory Inductance Plethysmography (also known as RIP technology, including the option for a secondary RIP belt). Oxygen saturation was obtained by a pulse oximeter, to identify oxygen desaturations and heart rate variations. All raw data was graphically depicted and utilized for scoring and detailed interpretive review. The patient underwent one night of study. The data was recorded internally to memory built into the SleepView unit and uploaded to [email or web address] for scoring and interpretation. All raw data, graphically depicting all recorded channels, was utilized for scoring and detailed interpretive review. The standards put forth by the [place] [employer] were followed for the complete scoring by a Safe And Vault Installer and interpretation by a Board Certified Sleep Medicine Physician. SLEEP TIME AND EFFICIENCY: The sleep study recording began at 12:35:04 AM and ended at 08:38:39 AM. Total recording time was 483.6 minutes. The total monitoring time was 455.6 minutes. The sleep efficiency was 94.2 percent. The patient's own estimate of sleep time was 12.00 hours. The patient spent 212.3 minutes supine, and spent 243.3 minutes non-supine SNORIN.1 % of the study time was spent snoring. The Snoring Count was 215 . The Snoring Index was 28.3 . PULSE RATE REVIEW: The mean heart rate was 87 beats per minute. The rate ranged from a low of 46 to a high of 95 beats per minute. RESPIRATORY DATA: The DENISE on this type 3 Home Sleep Study may understate the AHI determined on a type 1 or 2 study, since EEG is not monitored resulting in the inability to score non-desaturating hypopneas. Based on 3% Calculation: The DENISE 3% calculation of 44.4 per hour of monitoring time was based on a total of 86 scored apneas and 251 scored hypopneas with 3% desaturations. Supine DENISE 3%:47.2 per hour. Non-supine DENISE 3%: 41.7 per hour. Based on 4% Calculation: The DENISE 4% calculation of 33.2 per hour of monitoring time was based on a total of 86 scored apneas and 166 scored hypopneas with 4% desaturations. Supine DENISE 4%: 37.9 per hour. Non-supine DENISE 4%: 28.9 per hour. Oxygen Saturation: Patient's baseline O2 saturation was 90.7 %. The patient spent 404.2 minutes at an oxygen saturation less than 90%, and 353.6 minutes less than or equal to 88%. The desaturation index was 45.4 events per hour monitoring time. The lowest saturation was 54.7 %. DIAGNOSIS ICD-10 Code: R06.83 Snoring G47.33 Obstructive sleep apnea (adult) (pediatric) G47.36 Nocturnla hypoxia. OVERALL IMPRESSION: Severe obstructive sleep apnea/ hypopnea syndrome TECHNICALLY ADEQUATE: Yes RECOMMENDATION: 1. Positive airway pressure therapy is the treatment of choice for sleep disordered breathing. The patient will benefit from CPAP therapy which can be arranged through an in lab CPAP titration OR an auto titrating CPAP trial at home depending upon patient's co morbidities and insurance coverage. 2. Other treatment options for patients with sleep apnea include weight loss, dental appliance, positional therapy, hypoglossal nerve stimulation and upper airway surgery. But none as affective as CPAP with such severity of sleep apnea 3. One should be careful in driving and operating heavy equipment if there are symptoms of excessive daytime sleepiness. 4. Caution is advised with the use of alcohol, narcotics and sedatives with history of sleep apnea since they can cause worsening of sleep disordered breathing. 5. Overnight pulse oximetry while on CPAP is recommended to assess need for supplemental O2 due to significant nocturnal desaturation noticed during the sleep study. I attest that I have conducted an [id number] review of the raw data acquired in this study and confirm that the sleep study was technically adequate, unless stated otherwise above, and sufficient to allow for my interpretation. It is good medical practice and a Medicare requirement in many jurisdictions that the ordering provider have a follow up visit with the patient to review the results of this test, whether the results were abnormal or not. Ken Casas MD Procedure Note Ken Casas MD - 10/19/2023 11:59 PM CST SleepView Interpretation Patient Name: Celeste Waters : 1985 Study Date: 10/19/2023 Referred by: Chandler Childress MD Device Unique Identifier: Interpreted by: Ken Casas MD PATIENT INFORMATION: This 38-year-old Female was referred for a type 3portable sleep study. Height was 66.0 in and weight was 179.0 lb, whichrepresented a BMI of 28.89. Patient has an [place] score of 13/24. PROCEDURE: The patient underwent a digital diagnostic portable type 3device home sleep test; Utilizing [employer] portable sleepmonitor. The patient was provided with printed out instructions and accessto a 24/ patient support number with staff surveyor oil well directional to answer anyquestions regarding the study. Sleep time (identified as AASM equivalentof Monitoring Time [MT] in this report) was recorded via actigraphyderived from an accelerometer physically integrated into the SleepViewunit; also providing body position monitoring. Airflow and snore wererecorded via an oral/nasal cannula. The option for a 2nd measure ofairflow via oral/nasal thermistor is also present. Respiratory effort wasrecorded via Respiratory Inductance Plethysmography (also known as RIPtechnology, including the option for a secondary RIP belt). Oxygensaturation was obtained by a pulse oximeter, to identify oxygendesaturations and heart rate variations. All raw data was graphicallydepicted and utilized for scoring and detailed interpretive review. The patient underwent one night of study. The data was recorded internallyto memory built into the SleepView unit and uploaded [email or web address] for scoring and interpretation. All rawdata, graphically depicting all recorded channels, was utilized forscoring and detailed interpretive review. The standards put forth by theAmerican Academy of Sleep Medicine were followed for the complete scoringby a Safe And Vault Installer and interpretation by a Board Certified SleepMedicine Physician. SLEEP TIME AND EFFICIENCY: The sleep study recording began at 12:35:04 AMand ended at 08:38:39 AM. Total recording time was 483.6 minutes. Thetotal monitoring time was 455.6 minutes. The sleep efficiency was 94.2percent. The patient s own estimate of sleep time was 12.00 hours. Thepatient spent 212.3 minutes supine, and spent 243.3 minutes non-supine SNORIN.1 % of the study time was spent snoring. The Snoring Count [id number] . The Snoring Index was 28.3 . PULSE RATE REVIEW: The mean heart rate was 87 beats per minute. The rateranged from a low of 46 to a high of 95 beats per minute. RESPIRATORY DATA: The DENISE on this type 3 Home Sleep Study may understatethe AHI determined on a type 1 or 2 study, since EEG is not monitoredresulting in the inability to score non-desaturating hypopneas. Based on 3% Calculation: The DENISE 3% calculation of 44.4 per hour of monitoring time was based on atotal of 86 scored apneas and 251 scored hypopneas with 3% desaturations.Supine DENISE 3%:47.2 per hour. Non-supine DENISE 3%: 41.7 per hour. Based on 4% Calculation: The DENISE 4% calculation of 33.2 per hour of monitoring time was based on atotal of 86 scored apneas and 166 scored hypopneas with 4% desaturations.Supine DENISE 4%: 37.9 per hour. Non-supine DENISE 4%: 28.9 per hour. Oxygen Saturation: Patient's baseline O2 saturation was 90.7 %. The patient spent 404.2minutes at an oxygen saturation less than 90%, and 353.6 minutes less thanor equal to 88%. The desaturation index was 45.4 events per hourmonitoring time. The lowest saturation was 54.7 %. DIAGNOSIS ICD-10 Code: R06.83 Snoring G47.33 Obstructive sleep apnea (adult) (pediatric) G47.36 Nocturnla hypoxia. OVERALL IMPRESSION: Severe obstructive sleep apnea/ hypopnea syndrome TECHNICALLY ADEQUATE: Yes RECOMMENDATION: 1. Positive airway pressure therapy is the treatment of choice for sleepdisordered breathing. The patient will benefit from CPAP therapy which canbe arranged through an in lab CPAP titration OR an auto titrating CPAPtrial at home depending upon patient's co morbidities and insurancecoverage. 2. Other treatment options for patients with sleep apnea include weightloss, dental appliance, positional therapy, hypoglossal nerve stimulationand upper airway surgery. But none as affective as CPAP with such severityof sleep apnea 3. One should be careful in driving and operating heavy equipment if thereare symptoms of excessive daytime sleepiness. 4. Caution is advised with the use of alcohol, narcotics and sedativeswith history of sleep apnea since they can cause worsening of sleepdisordered breathing. 5. Overnight pulse oximetry while on CPAP is recommended to assess needfor supplemental O2 due to significant nocturnal desaturation noticedduring the sleep study. I attest that I have conducted an [id number] review of the raw dataacquired in this study and confirm that the sleep study was technicallyadequate, unless stated otherwise above, and sufficient to allow for myinterpretation. It is good medical practice and a Medicare requirement in manyjurisdictions that the ordering provider have a follow up visit with thepatient to review the results of this test, whether the results wereabnormal or not. Ken Casas MD Chandler Childress MD SLEEP CENTER ORD ERABLES * PREPARE (CROSSMATCH) RBC UNIT(S), 2 Units (08/09/2023 1:17 AM CDT) Only the most recent of2 resultswithin the time period is included. Unit Description AS1 LR PRBC [facility] BLOOD BANK LAB Unit ABO O [facility] BLOOD BANK LAB Unit Rh POS [facility] BLOOD BANK LAB Product Number R02 [facility] B LOOD BANK LAB Unit Donor # [id number] [facility] BLOOD BANK LAB Unit Status [facility] Product Code [id number] [facility] BLO OD BANK LAB Blood Type Barcode 5100 [facility] BLOOD BANK LAB Expiration Date S BLOOD BANK LAB Unit Description AS1 LR PRBC [facility] BLOOD BANK LAB Unit ABO O [facility] BLOOD [facility]ANK LAB Unit Rh POS [facility] BLOOD BANK LAB Product Number R02 [facility] B LOOD BANK LAB Unit Donor # [id number] [facility] BLOOD BANK LAB Unit Status released [facility] BLOO D BANK LAB Product Code [id number] [facility] BLO OD BANK LAB Blood Type Barcode 5100 [facility] BLOOD BANK LAB Expiration Date [facility] BLOOD BANK LAB Blood Bank BLOOD SPECIMEN / Unknown 08/06/2023 5:13 AM CDT Raphael Kolb MD LAB - BLOOD BANK ORD ERABLES [facility] BLOOD BANK LAB [address] [place] [address], [place] [phone] * (ABNORMAL) GLUCOSE - POINT OF CARE (08/08/2023 3:50 PM CDT) Only the most recent of74 resultswithin the time period is included. Glucose WB/POC 235(H) 70 - 115 mg/dL 08/08/2023 3:55 PM CDT [facility] Specimen Type Arterial 08/08/2023 3:[address] [facility] Blood BLOOD SPECIMEN / Unknown 08/08/2023 3:50 PM CDT 08/08/2023 3:55 PM CDT Teena Combs MD LAB - POINT OF CARE ORDERABLES Performing Organization Address City/[facility]/ZIP Co de Phone Number [facility] [address] [place] [address], [place] [phone] * (ABNORMAL) PTH INTACT W/O CALCIUM (08/08/2023 3:17 AM CDT) Only the most recent of2 resultswithin the time period is included. PTH Intact 866.5(H) 8.0 - 77.0 pg/mL 08/08/2023 4:[address] [facility] Blood BLOOD SPECIMEN / Unknown Lab Venipuncture / Unknown 08/08/2023 3:17 AM CDT 08/08/2023 3:58 AM CDT Teena Combs MD LAB - CHEMISTRY ORDE DESTINEE Performing Organization Address City/[facility]/ZIP Co de Phone Number [facility] [address] [place] [address], [place] [phone] * (ABNORMAL) CBC W/O DIFFERENTIAL (08/08/2023 3:17 AM T) Only the most recent of7 resultswithin the time period is included. WBC 4.6 3.5 - 10.5 10 3/uL 08/08/2023 4:05 AM [facility] RBC 2.90(L) 3.80 - 5.20 10 6/uL 08/08/2023 4:05 AM [facility] Hemoglobin 8.0(L) 12.0 - 15.6 g/dL 08/08/2023 4:05 AM [facility] Hematocrit 25.7(L) 35.0 - 45.0 % 08/08/2023 4:05 AM [facility] MCV 88.6 80.7 - 98.3 fL 08/08/2023 4:05 AM [facility] MCH 27.6 26.7 - 34.0 pg 08/08/2023 4:05 AM [facility] MCHC 31.1 30.8 - 35.9 g/dL 08/08/2023 4:05 AM [facility] RDW-SD 55.0(H) 36.0 - 50.0 fL 08/08/2023 4:05 AM [facility] RDW-CV 17.0(H) 11.2 - 14.8 % 08/08/2023 4:05 AM [facility] Platelet Count 150 150 - 400 10 3/uL 08/08/2023 4:05 AM [facility] MPV 10.3 9.4 - 12.9 fL 08/08/2023 4:05 AM [facility] nRBC Absolute 0.00 0 10 3/uL 08/08/2023 4:05 AM [facility] nRBC Auto 0.0 0 /100 WBC 08/08/2023 4:05 AM [facility] Blood BLOOD SPECIMEN / Unknown Lab Venipuncture / Unknown 08/08/2023 3:17 AM CDT 08/08/2023 3:58 AM T Teena Combs MD LAB - HEMATOLOGY ORD ERABLES [facility] [address] [place] [address], [facility] [phone] * (ABNORMAL) RENAL FUNCTION PANEL (08/08/2023 3:17 AM [facility]) BUN 42(H) 7 - 26 mg/dL 08/08/2023 4:37 AM [facility] Creatinine 6.67(H) 0.56 - 0.96 mg/dL 08/08/2023 4:37 AM [facility] Sodium 131(L) 136 - 145 mmol/L 08/08/2023 4:37 AM [facility] Potassium 5.4(H) 3.5 - 4.5 mmol/L 08/08/2023 4:37 AM [facility] Chloride 95(L) 98 - 107 mmol/L 08/08/2023 4:37 AM [facility] CO2 25 22 - 29 mmol/L 08/08/2023 4:37 AM [facility] Glucose 245(H) 70 - 115 mg/dL 08/08/2023 4:37 AM [facility] Albumin 2.5(L) 3.4 - 5.0 g/dL 08/08/2023 4:37 AM [facility] Calcium 8.4 8.4 - 10.2 mg/dL 08/08/2023 4:37 AM [facility] Phosphorus 7.0(H) 2.9 - 5.1 mg/dL 08/08/2023 4:37 AM [facility] Anion Gap 11 6 - 16 08/08/2023 4:37 AM [facility] BUN/Creatinine Ratio 6(L) 7 - 23 08/08/2023 4:37 AM [facility] Osmolality Calculated 291 275 - 295 mOsm/kg 08/08/2023 4:37 AM [facility] eGFR by CKD-EPI 8(L) >=90 mL/min/1.7 3 m2 08/08/2023 4:37 AM [facility] Blood BLOOD SPECIMEN / Unknown Lab Venipuncture / Unknown 08/08/2023 3:17 AM CDT 08/08/2023 3:58 AM CDT Teena Combs MD LAB - CHEMISTRY MELANIE FELIPE Performing Organization Address City/[facility]/ZIP Co de Phone Number [address] [address], [facility] [phone] * MAGNESIUM BLOOD (08/08/2023 3:17 AM CDT) Only the most recent of9 resultswithin the time period is included. Magnesium 2.3 1.6 - 2.6 mg/dL 08/08/2023 4:37 AM CDT [facility] Blood BLOOD SPECIMEN / Unknown Lab Venipuncture / Unknown 08/08/2023 3:17 AM CDT 08/08/2023 3:58 AM CDT Teena Combs MD LAB - CHEMISTRY MELANIE FELIPE Performing Organization Address [facility]/ZIP Co de Phone Number [address] [address], [facility] [phone] * CARDIAC EKG ORDER (08/07/2023 2:55 PM CDT) Only the most recent of2 resultswithin the time period is included. Narrative 08/07/2023 2:55 PM CDT Ordered by an unspecified provider. Scanned Document CARDIAC SERVICES ORD ERABLES * PATHOLOGY TISSUE (08/07/2023 8:08 AM CDT) Case Report Surgical Pathology Report Case: [id number] Authorizing Provider: Manuel Braun MD Collected: 08/07/2023 08:08 AM Ordering Location: [facility] ENDOSCOPY Received: 08/07/2023 09:46 AM Pathologist: Kamille Pandya MD Specimens: A) - Gastric, gastric bx R/O gastritis, PHG B) - Esophagus, esophageal bx-possible esophageal wart 08/10/2023 2:23 PM CDT [facility] Final Diagnosis Stomach, biopsy (A): - Mild proton pump inhibitor effect - No active inflammation or H. pylori organisms (H&E examination) Esophagus, biopsy (B): - Squamous papilloma 08/10/2023 2:23 PM [facility] Microscopic Description and Comment Microscopic examination substantiates the final diagnosis. 08/10/2023 2:23 PM [facility] PATHOLOG[facility] LAB Clinical History The patient is a 37-year-old woman who presented for melena, history of duodenal ulcer 1 month ago associated with NSAIDs. Operative procedure/findings: EGD-nodule in the esophagus, biopsied to rule out possible wart; erosive gastropathy versus portal hypertensive gastropathy, biopsied 08/10/2023 2:23 PM [facility] Gross Description The requisition and specimen(s) are identified with the patient's name, Celeste Waters. Received in formalin, specimen A , are 4 fragments of samson-brown tissue, 0.2-0.4 cm, 1.0 x 0.5 x 0.3 cm in aggregate. Specimen is submitted in toto in cassette A1. Received in formalin, specimen B is a 0.3 x 0.2 x 0.2 cm samson-white tissue. Specimen is submitted in toto in cassette B1. [place] 08/10/2023 2:23 PM [facility] LAB Pathologist Location at [facility] 08/10/2023 2:23 PM [facility] Disclaimer The performance characteristics of all immunohistochemical and indirect immunofluorescence stains (if any) cited in this report were determined by the Histopathology Laboratory of [facility]. Some of these tests were developed by our own laboratory and have not been cleared or approved by the US Food and Drug Administration. The FDA does not require this test to go through premarket FDA review. These tests are used for clinical purposes. They should not be regarded as investigational or for research. This laboratory is certified under the Clinical Laboratory Improvement Amendments (CLIA) as qualified to perform high complexity clinical laboratory testing. This case has been personally reviewed and interpreted by the attending (teaching) pathologist. 08/10/2023 2:23 PM [facility] Embedded Images 08/10/2023 2:23 PM [facility] Biopsy, NOS GASTRIC CONTENTS SPECIMEN / Unknown 08/07/2023 8:08 AM CDT 08/07/2023 9:46 AM CDT Comment:Pre-op diagnosis: Melena Biopsy, NOS REGION OF ESOPHAGUS / Unknown 08/07/2023 8:20 AM CDT 08/07/2023 9:46 AM CDT Comment:Pre-op diagnosis: Melena Manuel Braun MD LAB - PATHOLOGY/CYTO LOGY ORDERABLES Performing Organization Address City/State/[facility] de Phone Number [facility] [address] [phone] * EGD (08/07/2023 7:48 AM CDT) Report Endoscopy POC Endoscopy Department Report __ _ Patient Name: Celeste Waters Procedure Date: 08/07/2023 7:48 AM Date of : 1985 Classification: Inpatient Gender: Female Ethnicity: Not or Race: Black or __ _ Providers: Manuel Braun MD Referring MD: Procedure: Upper GI endoscopy Indications: Melena. H/O duodenal ulcer 1 month ago when taking NSAIDS. No NSAID use currently. Forceful vomiting of food prior to melena. Medications: Monitored Anesthesia Care Description of Procedure: After obtaining informed consent, the endoscope was passed under direct vision. Throughout the procedure, the patient's blood pressure, pulse, and oxygen saturations were monitored continuously. The Endoscope was introduced through the mouth, and advanced to the second part of duodenum. The upper GI endoscopy was accomplished without difficulty. The patient tolerated the procedure well. Findings: A single 3 mm nodule was found in the upper third of the esophagus, 25 cm from the incisors. The appearance is suggestive of a wart. Biopsy was taken with a cold forceps for histology. The Z-line was irregular and was found 40 cm from the incisors with gastric folds on one side of the lower esophagus. No definite hiatal hernia seen. The gastroesophageal junction was found at 40 cm and the site of the diaphragmatic hiatus was found at 40 cm from the incisors. The exam of the esophagus was otherwise normal. Cannot R/O a healed Sade-Cabrera tear. A few erosions with no bleeding and no stigmata of recent bleeding were found in the entire examined stomach. The mucosa has a mosaic pattern which could sugest portal gastropathy. Biopsies were taken with a cold forceps for histology. No other significant abnormalities were identified in a careful examination of the stomach. There is no endoscopic evidence of bleeding or ulceration in the entire examined stomach. Diffuse mild inflammation characterized by congestion (edema) and granularity was found in the first portion of the duodenum. There is no endoscopic evidence of ulceration in the entire examined duodenum. The cardia and gastric fundus were normal on retroflexion. Cannot R/O a healed emetogenic tear. Estimated Blood Loss: Estimated blood loss was minimal. Complications: No immediate complications. Impression: - Nodule found in the esophagus. Biopsied. - Z-line irregular, 40 cm from the incisors. - Erosive gastropathy vs. portal hypertensive gastropathy, with no bleeding and no stigmata of recent bleeding. Biopsied. - Duodenitis. No ulcer seen. Recommendation: - Advance diet as tolerated. - Use a proton pump inhibitor PO daily for 4 weeks. - Await pathology results. If portal gastropathy present will need to be further evaluated. Attending Participation: I personally performed the entire procedure. Procedure Code(s): --- Professional --- 29886, Esophagogastroduode noscopy, flexible, transoral; with biopsy, single or multiple Diagnosis Code(s): --- Professional --- K22.89, Other specified disease of esophagus K31.89, Other diseases of stomach and duodenum K29.80, Duodenitis without bleeding K92.1, Melena (includes Hematochezia) CPT copyright 2021 [employer]. All rights reserved. The codes documented in this report are preliminary and upon warehouse administrator review may be revised to meet current compliance requirements. Manuel Braun MD 08/07/2023 8:36:31 AM Note Initiated On: 08/07/2023 7:48 AM Number of Addenda: [id number] [place] [address] PROVATION 08/07/2023 7:48 AM CDT Manuel Braun MD GI PROCEDURE ORDERAB LES [facility] PROVATION * (ABNORMAL) BASIC METABOLIC PANEL (CALCIUM TOTAL) (08/07/2023 2:29 AM CDT) Only the most recent of5 resultswithin the time period is included. BUN 30(H) 7 - 26 mg/dL 08/07/2023 3:57 AM [facility] Creatinine 5.06(H) 0.56 - 0.96 mg/dL 08/07/2023 3:57 AM [facility] Sodium 133(L) 136 - 145 mmol/L 08/07/2023 3:57 AM [facility] Potassium 4.4 3.5 - 4.5 mmol/L 08/07/2023 3:57 AM [facility] Chloride 98 98 - 107 mmol/L 08/07/2023 3:57 AM [facility] CO2 28 22 - 29 mmol/L 08/07/2023 3:57 AM [facility] Glucose 129(H) 70 - 115 mg/dL 08/07/2023 3:57 AM [facility] Calcium 8.3(L) 8.4 - 10.2 mg/dL 08/07/2023 3:57 AM [facility] Anion Gap 7 6 - 16 08/07/2023 3:57 AM [facility] BUN/Creatinine Ratio 6(L) 7 - 23 08/07/2023 3:57 AM [facility] Osmolality Calculated 284 275 - 295 mOsm/kg 08/07/2023 3:[address] [facility] eGFR by CKD-EPI 11(L) >=90 mL/min/1.7 3 m2 08/07/2023 3:[address] [facility] Blood BLOOD SPECIMEN / Unknown Lab Venipuncture / Unknown 08/07/2023 2:29 AM CDT 08/07/2023 3:31 AM CDT Domonique Romano MD LAB - CHEMISTRY ORDRichmond FELIPE Performing Organization Address City/[facility]/ZIP Co de Phone Number [address] [address], [facility] [phone] * (ABNORMAL) PT-INR [facility] (08/06/2023 5:10 AM CDT) Only the most recent of8 resultswithin the time period is included. PT 15.5(H) 12.1 - 14.8 Seconds 08/06/2023 5:[address] [facility] INR 1.2 See Comment 08/06/2023 5:[address] [facility] Comment:The suggested therap eutic range for standard coumadin (warfarin) therapy is an INR of 2.0-3.0. For high-risk patients (Mechanical Mitral Valve Prosthesis, etc.), the suggested prophylactic therapeutic range is an INR of 2.5-3.5. Blood BLOOD SPECIMEN / Unknown Venipuncture / Unknown 08/06/2023 5:10 AM CDT 08/06/2023 5:12 AM CDT Sidney Marks MD LAB - COAGULATION OR DERABLES Performing Organization Address City/[facility]/ZIP Co de Phone Number [address] [address], [place] [phone] * TYPE + SCREEN PANEL (08/06/2023 5:10 AM CDT) Only the most recent of2 resultswithin the time period is included. Antibody Screen POS 6:23 AM CDT [facility] BLOOD BANK LAB ABO Rh O POS 08/06/2023 6:23 AM CDT [facility] BLOOD BANK LAB Blood Bank BLOOD SPECIMEN / Unknown Venipuncture / Unknown 08/06/2023 5:10 AM CDT 08/06/2023 5:13 AM CDT Sidney Marks MD LAB - BLOOD BANK ORD ERABLES [facility] BLOOD BANK LAB [address] [place] [address], [facility] [phone] * ROSANGELA DIRECT (08/06/2023 5:10 AM CDT) Only the most recent of2 resultswithin the time period is included. Direct Rosangela (EDINSON) NEG 08/06/2023 8:41 AM CDT [facility] BLOOD [facility] LAB Blood Bank BLOOD SPECIMEN / Unknown Venipuncture / Unknown 08/06/2023 5:10 AM CDT 08/06/2023 5:13 AM CDT Sidney Marks MD LAB - BLOOD BANK ORD ERABLES Performing Organization Address City/[facility]/ZIP Co de Phone Number [facility] BLOOD [facility] LAB [address] [place] [address], [facility] [phone] * ANTIBODY IDENTIFICATION (08/06/2023 5:10 AM CDT) Only the most recent of2 resultswithin the time period is included. Antibody 1 POS, Anti-E 08/06/2023 9:40 AM CDT [facility] BLOOD BANK LAB Antibody 2 POS, Anti-Reyna 08/06/2023 9:40 AM CDT [facility] BLOOD BANK LAB Antibody 3 POS, Anti-NDS (No Discernible Spec) 08/06/2023 9:40 AM CDT [facility] BLOOD BANK LAB Blood Bank BLOOD SPECIMEN / Unknown Venipuncture / Unknown 08/06/2023 5:10 AM CDT 08/06/2023 5:13 AM CDT Sidney Marks MD LAB - BLOOD BANK ORD ERABLES [facility] BLOOD BANK LAB [address] [place] [address], [facility] [phone] * (ABNORMAL) HGB HCT PANEL (08/06/2023 5:10 AM CDT) [facility] Hemoglobin 8.3(L) 12.0 - 15.6 g/dL 08/06/2023 5:17 AM CDT [facility] LABORATORY [facility] Hematocrit 26.3(L) 35.0 - 45.0 % 08/06/2023 5:[address] [facility] Blood BLOOD SPECIMEN / Unknown Venipuncture / Unknown 08/06/2023 5:10 AM CDT 08/06/2023 5:12 AM CDT Sidney Marks MD LAB - HEMATOLOGY ORD [employer] Performing Organization Address City/[facility]/ZIP Co de Phone Number [facility] LABORATORY [facility] [address] [place] [address], [facility] [phone] * (ABNORMAL) CBC W AUTO DIFFERENTIAL (08/05/2023 8:09 PM CDT) Only the most recent of8 resultswithin the time period is included. [facility] WBC 7.2 3.5 - 10.5 10 3/uL 08/05/2023 8:[address] [facility] RBC 3.00(L) 3.80 - 5.20 10 6/uL 08/05/2023 8:[address] [facility] Hemoglobin 8.4(L) 12.0 - 15.6 g/dL 08/05/2023 8:[address] [facility] Hematocrit 26.9(L) 35.0 - 45.0 % 08/05/2023 8:[address] [facility] MCV 89.7 80.7 - 98.3 fL 08/05/2023 8:33 PM CDT [facility] LABORATORY [facility] MCH 28.0 26.7 - 34.0 pg 08/05/2023 8:[address] [facility] MCHC 31.2 30.8 - 35.9 g/dL 08/05/2023 8:33 PM [facility] RDW-SD 58.7(H) 36.0 - 50.0 fL 08/05/2023 8:33 PM [facility] RDW-CV 18.0(H) 11.2 - 14.8 % 08/05/2023 8:33 PM [facility] Platelet Count 187 150 - 400 10 3/uL 08/05/2023 8:33 PM [facility] MPV 10.4 9.4 - 12.9 fL 08/05/2023 8:33 PM [facility] nRBC Absolute 0.00 0 10 3/uL 08/05/2023 8:33 PM [facility] nRBC Auto 0.0 0 /100 WBC 08/05/2023 8:33 PM [facility] Neutrophils % 63.7 35.0 - 70.0 % 08/05/2023 8:33 PM [facility] Lymphocytes % 17.0(L) 20.0 - 43.0 % 08/05/2023 8:33 PM [facility] Monocytes % 6.7 5.0 - 13.0 % 08/05/2023 8:33 PM [facility] Eosinophils % 11.0(H) 0.0 - 6.0 % 08/05/2023 8:33 PM [facility] Basophil % 1.3 0.0 - 2.0 % 08/05/2023 8:33 PM [facility] Neutrophils Absolute 4.56 1.60 - 7.00 10 3/uL 08/05/2023 8:33 PM [facility] Lymphocyte Absolute 1.22 1.10 - 3.90 10 3/uL 08/05/2023 8:33 PM [facility] Monocytes Absolute 0.48 0.26 - 1.07 10 3/uL 08/05/2023 8:33 PM [facility] Eosinophils Absolute 0.79(H) 0.00 - 0.47 10 3/uL 08/05/2023 8:33 PM [facility] Basophils Absolute 0.09(H) 0.00 - 0.08 10 3/uL 08/05/2023 8:33 PM [facility] Immature Granulocytes % 0.3 0.0 - 1.0 % 08/05/2023 8:33 PM [facility] Immature Granulocytes Absolute 0.02 08/05/2023 8:33 PM [facility] Blood BLOOD SPECIMEN / Unknown Venipuncture / Unknown 08/05/2023 8:09 PM CDT 08/05/2023 8:22 PM CDT Raphael Kolb MD LAB - HEMATOLOGY ORD ERABLES [facility] [address] [place] [address], [facility] [phone] * (ABNORMAL) COMPREHENSIVE METABOLIC PANEL (08/05/2023 8:09 PM T) Only the most recent of10 resultswithin the time period is included. BUN 58(H) 7 - 26 mg/dL 08/05/2023 8:53 PM [facility] Creatinine 8.31(H) 0.56 - 0.96 mg/dL 08/05/2023 8:53 PM [facility] Sodium 136 136 - 145 mmol/L 08/05/2023 8:53 PM [facility] Potassium 5.2(H) 3.5 - 4.5 mmol/L 08/05/2023 8:53 PM [facility] Chloride 99 98 - 107 mmol/L 08/05/2023 8:53 PM [facility] CO2 24 22 - 29 mmol/L 08/05/2023 8:53 PM [facility] Glucose 146(H) 70 - 115 mg/dL 08/05/2023 8:53 PM [facility] Calcium 8.7 8.4 - 10.2 mg/dL 08/05/2023 8:53 PM [facility] Protein Total 9.3(H) 6.0 - 8.3 g/dL 08/05/2023 8:53 PM [facility] Albumin 2.7(L) 3.4 - 5.0 g/dL 08/05/2023 8:53 PM CDT [facility] Bilirubin Total 0.7 0.2 - 1.2 mg/dL 08/05/2023 8:53 PM [facility] Alkaline Phosphatase 327(H) 40 - 150 U/L 08/05/2023 8:53 PM [facility] ALT 23 5 - 55 U/L 08/05/2023 8:53 PM [facility] AST 25 5 - 34 U/L 08/05/2023 8:53 PM [facility] Anion Gap 13 6 - 16 08/05/2023 8:53 PM [facility] BUN/Creatinine Ratio 7 7 - 23 08/05/2023 8:53 PM [facility] Osmolality Calculated 301(H) 270 - 300 mOsm/kg 08/05/2023 8:53 PM [facility] Albumin/Globulin Ratio 0.4(L) 1.1 - 2.3 08/05/2023 8:53 PM [facility] eGFR by CKD-EPI 6(L) >=90 mL/min/1.7 3 m2 08/05/2023 8:53 PM [facility] Blood BLOOD SPECIMEN / Unknown Venipuncture / Unknown 08/05/2023 8:09 PM CDT 08/05/2023 8:22 PM CDT Raphael Kolb MD [facility] Organization Address City/State/ZIP Co de Phone Number [facility] [address] [place] [address], [facility] [phone] * HCG BETA BLOOD QUANTITATIVE (08/05/2023 8:09 PM CDT) Beta-hCG Total Quantitative 3 mIU/mL 08/05/2023 8:57 PM [facility] Comment: HCG Numeric Result Interpretation: Non- Females: < 5 mIU/mL Post-Menopausal Females: < 7 mIU/mL This assay is cleared for use in the early detection of only. It is not approved for any other uses such as tumor marker screening, tumor marker monitoring, etc. and should not be used for any other purposes. Blood BLOOD SPECIMEN / Unknown Venipuncture / Unknown 08/05/2023 8:09 PM CDT 08/05/2023 8:22 PM CDT Raphael Kolb MD LAB - CHEMISTRY MELANIE FELIPE Performing Organization Address [facility] Co de Phone Number [address] [address], [facility] [phone] * (ABNORMAL) PHOSPHORUS BLOOD (08/05/2023 8:09 PM CDT) Only the most recent of9 resultswithin the time period is included. Phosphorus 8.2(H) 2.9 - 5.1 mg/dL 08/05/2023 9:24 PM CDT [facility] LABORATORY [facility] Blood BLOOD SPECIMEN / Unknown Venipuncture / Unknown 08/05/2023 8:09 PM CDT 08/05/2023 8:22 PM CDT Yamileth Isaac APRN-AUDITOR [facility] - CHEMIS TRY ORDERABLES Performing Organization Address [facility] Co de Phone Number [address] [address], [facility] [phone] * EKG 12-LEAD (08/05/2023 2:39 PM CDT) Ventricular Rate 82 BPM [facility]USE Atrial Rate 82 BPM [facility] MUSE P-R Interval 180 ms [facility] MUSE QRS Duration ms 80 ms [facility] MUSE Q-T Interval ms 398 ms [facility] MUSE QTC Calculation (Bezet) 464 ms [facility] MUSE Calculated P [place] 22 degrees SL MUSE Calculated R [place] 5 degrees SL MUSE Calculated T [place] 15 degrees SL MUSE Interpretation EKG NORMAL SINUS RHYTHM POSSIBLE ANTEROLATERAL INFARCT , AGE UNDETERMINED ABNORMAL ECG NO PREVIOUS ECGS AVAILABLE Confirmed by BHUPINDER CRISTINA MD ([id number]) on 08/10/2023 3:21:36 PM [facility] MUSE 08/05/2023 2:39 PM CDT 08/10/2023 3:21 PM CDT Raphael Kolb MD ECG ORDERABLES Performing Organization Address City/[facility]/ZIP Co de Phone Number [facility] MUSE * PREPARE FFP UNIT(S), 1 Units (07/27/2023 1:17 AM CDT) Unit Description N/A [facility] BLOOD BANK LAB Blood Bank BLOOD SPECIMEN / Unknown Ian Olvera LEARNING DESIGNER-AUDITOR [facility] - BLOOD BA NK ORDERABLES Performing Organization Address City/[facility]/ZIP Co de Phone Number [facility] BLOOD BANK LAB [address] [place] [address], [facility] [phone] * PTT [facility] (07/26/2023 4:43 AM CDT) Only the most recent of8 resultswithin the time period is included. APTT 33.5 23.0 - 38.4 Seconds 07/26/2023 5:17 AM CDT [facility] Comment:Suggested therapeuti c range for full dose I.V. unfractionated heparin therapy for venous thromboembolism is 71 to 109 seconds. Blood BLOOD SPECIMEN / Unknown Venipuncture / Unknown 07/26/2023 4:43 AM CDT 07/26/2023 4:59 AM CDT Janae Alexander LEARNING DESIGNER-AUDITOR [facility] LAB - COAG ULATION ORDERABLES Performing Organization Address [facility] Co de Phone Number [facility] [address] [place] [address], [place] [phone] * (ABNORMAL) IRON + TRANSFERRIN PANEL (07/26/2023 4:43 AM CDT) Iron 89 40 - 150 ug/dL 07/26/2023 6:32 AM CDT [facility] Transferrin 157(L) 174 - 382 mg/dL 07/26/2023 6:[address] [facility] Transferrin Saturation % 45 16 - 50 % 07/26/2023 6:[address] [facility] TIBC Calculated 196(L) 240 - 450 ug/dL 07/26/2023 6:32 AM CDT [facility] LABORATORY [facility] Blood BLOOD SPECIMEN / Unknown Venipuncture / Unknown 07/26/2023 4:43 AM CDT 07/26/2023 4:59 AM CDT Bonilla Covarrubias MD LAB - CHEMISTRY ORDERABLES Performing Organization Address [facility]/ZIP Co de Phone Number [address] [address], [facility] [phone] * (ABNORMAL) FERRITIN (07/26/2023 4:43 AM CDT) Pathologist [facility] Ferritin 2,519(H) 13 - 204 ng/mL 07/26/2023 7:[address] [facility] Comment:Result obtained by cortez velazquez. Blood BLOOD SPECIMEN / Unknown Venipuncture / Unknown 07/26/2023 4:43 AM CDT 07/26/2023 4:59 AM CDT Bonilla Covarrubias MD LAB - CHEMISTRY ORDERABLES Performing Organization Address [facility] Co de Phone Number [address] [address], [facility] [phone] * HEPARIN INDUCED PLATELET ANTIBODY W/ RFLX (07/23/2023 10:59 AM CDT) [facility] Hep-Ind Thrombocytopenia PF4 Antibody IgG 0.150 <=0.399 OD 07/25/2023 12:53 PM CDT [facility] ([facility]) Comment: Heparin-Induced Thrombocytopenia Antibodies were not detected. Serotonin Release Assay will not be performed. Interpretive Data: Hep-Ind Thrombocytopenia PF4 Ab, IgG This JOE assay detects the presence of IgG antibodies to heparin-platelet factor 4 (PF4) complexes. Most cases of heparin-induced thrombocytopenia (HIT) are caused by IgG antibodies to heparin-PF4, rather than IgA or IgM antibodies. Negative results have a good negative predictive value for HIT, although rare false-negative results may occur. Positive JOE results are sensitive but not completely specific for HIT. HIT is a clinicopathologic diagnosis. Clinical findings and the results of other laboratory tests must be taken into consideration. Higher optical density (OD) values in the IgG JOE test correlate with a higher likelihood of positivity in platelet activation assays, such as the serotonin release assay (MADAN), and an increased likelihood of clinical HIT. A clinical scoring system to assess pretest probability of HIT along with other guidance for diagnosis is available in [facility] Consult: [email or web address]/content/[email or web address]-[email or web address]-[email or web address] . Performed By: [facility] [place] [address] [place] [address] Coremaker Floor: Angel Hill MD, PhD CLIA Number: [id number] Blood BLOOD SPECIMEN / Unknown Venipuncture / Unknown 07/23/2023 10:59 AM CDT 07/23/2023 11:05 AM CDT Eda Camilo PA-C LAB - SEROLOGY ORD ERABLES [facility]) [address] [place] [address], [facility] * ELBA BLOOD SCREEN W/REFLEX TITER (07/22/2023 3:39 AM CDT) Only the most recent of2 resultswithin the time period is included. ELBA IgG None Detected None Detected 07/24/2023 9:09 AM CDT [facility] ([facility]) Comment: If suspicion of connective tissue disease is strong and ELBA EIA is negative, consider testing for ELBA by IFA ([id number]). INTERPRETIVE INFORMATION: Anti-Nuclear Antibodies (ELBA), IgG by JOE Antinuclear Antibodies (ELBA), IgG by JOE: ELBA specimens are screened using enzyme-linked immunosorbent assay (JOE) methodology. All JOE results reported as Detected are further tested by indirect fluorescent assay (IFA) using HEp-2 substrate with an IgG-specific conjugate. The ELBA JOE screen is designed to detect antibodies against dsDNA, histones, SS-A (Ro), SS-B (La), Gibson, Gibson/FLOOR GRINDER, Scl-70, Tammy-1, centromeric proteins, other antigens extracted from the HEp-2 cell nucleus. ELBA JOE assays have been reported to have lower sensitivities than ELBA IFA for systemic autoimmune rheumatic diseases (SARD). Negative results do not necessarily rule out SARD. Performed By: [facility] [place] [address] [place] [address] Coremaker Floor: Angel Hill MD, PhD CLIA Number: [id number] Blood BLOOD SPECIMEN / Unknown Venipuncture / Unknown 07/22/2023 3:39 AM CDT 07/22/2023 4:21 AM CDT Angelica MCDOWELL LAB - CHEMISTRY MELANIE FELIPE [facility] ([facility]) [address] [place] [address], [facility] * IR ANGIO AV SHUNT IMAGING (07/21/2023 1:06 PM CDT) Anatomical Region Laterality Modality Lower Extremity, Upper Extremity, Chest X-Ray Angiography 07/21/2023 1:32 PM CDT Impressions 07/21/2023 1:59 PM CDT Impression: Severe central stenosis, with aneurysmal dilation of the access and clots within the access. Angioplasty of stenotic outflow segment. Severe central stenosis with drainage via collateral veins, unable to be angioplastied. Declot of the access, with small residual adherent thrombus I was present through out the procedure. ESTIMATED BLOOD LOSS: 10-15cc > Interpreting Provider: Shalom Rome MD on 07/21/2023 1:59 PM Narrative 07/21/2023 1:59 PM CDT PROCEDURE: IR ANGIO AV SHUNT IMAGING DATE/TIME OF EXAM: 07/21/2023 1:07 PM CLINICAL INFORMATION: None relevant/not provided if blank. Indication: N18.6: ESRD (end stage renal disease) ([facility]) N18.6: End stage renal disease ([facility]) Additional History: COMPARISON: None. TECHNIQUE: Manager Project Management:Karlie Rosen MD Coating Machine Operator:Shalom Rome MD FLUOROSCOPY DOSE: 43 mGy Reference air kerma (ka,r). CONSCIOUS SEDATION: Focused History and Physical was performed and documented. As part of the Time out procedure, immediately prior to initiation of sedation while the patient was on the procedure table, a final pre-assessment of the patient was performed by the radiologist which confirmed no significant change from the documented history and physical. Sedation was administered by the Radiology Nurse. A radiology nurse was directly and continuously supervised by the interpreting procedural Radiologist as listed. Appropriate monitors were placed, vital signs were continuously assessed and the patient was monitored by the nurse throughout the procedure and until transferred to the recovery or inpatient unit. 2mg Versed and 100mcg fentanyl were administered intravenously. There were no complications of sedation. Nursing notes of the sedation were reviewed. Total yesq-yd-vdah sedation time 105 minutes. MEDICATIONS: . 2mg Versed and 100mcg fentanyl, Heparin 3000U, tPA 4mg COMPLICATIONS: Small hematoma at the access sites PROCEDURE: After informed consent, the patient was taken to the angiography suite and placed on the fluoroscopy table. After appropriate time out, the procedure area was cleansed with Chlorhexidine and draped in a sterile fashion. Ultrasound performed at the start of the procedure showed areas within the access that had adherent clots, extending up till the shoulder area, but no flow limitation on color doppler. After infiltration with local anesthetic, the Left upper extremity AV fistula was accessed close to the shoulder with a micropuncture needle towards arterial inflow . The needle was exchanged over a microwire for a 5 Marshallese sheath which was subsequently exchanged for a 7F sheath over a wire (arterial sheath). A 0.035 Glidewire was advanced towards the inflow via the arterial sheath. A 4F Kumpe guiding catheter was then advanced over the wire close to the inflow. The Glidewire was pulled and a pull back venogram was done using the Kumpe catheter. Findings included: 1.Aneurysmal segments within the access. Brisk flow without definite filling defects were noted. The Fistula was then re-accessed centrally towards the venous outflow in a similar manner as described above and a 7F sheath was also inserted (venous sheath). The glidewire was inserted through the venous sheath and advance centrally. It couldn't be advanced beyond where the cephalic arch. A Kumpe catheter was advanced till the arch area, and an angiogram was performed which showed flow via multiple collaterals. Repeated attempts to cross the stenotic segment was unsuccessful. Subsequent angiogram also revealed an area of mild stenosis in the central cephalic vein. In a similar manner as described for the venous sheath, 2 mg of tPA were dispersed in the inflow segment via arterial sheath. The Glidewire was reinserted into the arterial sheath and the Kumpe catheter was manipulated over the Glidewire to the distal end of the clotted section with the help of ultrasound. The Glidewire was removed and 2mg of tPA was dispersed along the access. Similarly the Glidewire and Kumpe catheter were manipulated to the central extent of the clot and 2 mg of tPA were dispersed in the clotted segment via Kumpe catheter after removal of the wire. The Kumpe catheter was removed. A Prosthetic Assistant rotational thrombectomy was used to macerate clot under the dual guidance of Fluoroscopy and ultrasound. The process was repeated until most of the access was free from clot. However, a short segment of adherent clot couldn't be completely removed. Repeat angiograms with the Kumpe catheter advance close to the arterial inflow, did not show flow limitation, or definite filling defects. Small bits of clots were aspirated from the side ports of both sheaths. Attention was then directed to the outflow stenosis, which was angioplastied with 8x40mm Conquest angioplasty balloon inflated to full effacement. Post angioplasty angiogram showed improvement in the caliber of the vein and brisk flow, without evidence of extravasation. All sheaths, wires and catheters were removed. Site of sheath access was sutured in a figure of 8 manner with 3-0 Nylon suture line and hemostasis was achieved. Hematoma formation was noted at the site of the central sheath so the stitches were removed and manual pressure held until hemostasis was achieved and no hematoma expansion was noted. A small hematoma was also present at the site of the outflow sheath. Complications: Small hematoma at sheath sites. Procedure Note Shalom Rome MD - 07/21/2023 PROCEDURE: IR ANGIO AV SHUNT IMAGING DATE/TIME OF EXAM: 07/21/2023 1:07 PM CLINICAL INFORMATION: None relevant/not provided if blank. Indication: N18.6: ESRD (end stage renal disease) (CMS/HCC) N18.6: End stage renal disease (CMS/HCC) Additional History: COMPARISON: None. TECHNIQUE: Manager Project Management:Karlie Rosen MD Coating Machine Operator:Shalom Rome MD FLUOROSCOPY DOSE: 43 mGy Reference air kerma (ka,r). CONSCIOUS SEDATION: Focused History and Physical was performed and documented. As part ofthe Time out procedure, immediately prior to initiation of sedation whilethe patient was on the procedure table, a final pre-assessment of thepatient was performed by the radiologist which confirmed no significant changefrom the documented history and physical. Sedation was administered by the Radiology Nurse. A radiology nurse was directly and continuously supervised by the interpreting procedural Radiologist as listed. Appropriate monitors were placed, vital signs were continuously assessed and the patient was monitored by the nurse throughout the procedure and until transferred to the recovery or inpatient unit. 2mg Versed and 100mcg fentanyl were administered intravenously. There were no complications of sedation. Nursing notes of the sedation were reviewed. Total vgxm-[id number]-vcmp sedation time 105 minutes. MEDICATIONS: . 2mg Versed and 100mcg fentanyl, Heparin 3000U, tPA 4mg COMPLICATIONS: Small hematoma at the access sites PROCEDURE: After informed consent, the patient was taken to the angiography suiteand placed on the fluoroscopy table. After appropriate time out, theprocedure area was cleansed with Chlorhexidine and draped in a sterile fashion. Ultrasound performed at the start of the procedure showed areas withinthe access that had adherent clots, extending up till the shoulder area, butno flow limitation on color doppler. After infiltration with local anesthetic, the Left upper extremity AV fistula was accessed close to the shoulder with a micropuncture needle towards arterial inflow . The needle was exchanged over a microwire for a5 Marshallese sheath which was subsequently exchanged for a 7F sheath over awire (arterial sheath). A 0.035 Glidewire was advanced towards the inflow via the arterial sheath. A 4F Kumpe guiding catheter was then advanced overthe wire close to the inflow. The Glidewire was pulled and a pull backvenogram was done using the Kumpe catheter. Findings included: 1.Aneurysmal segments within the access. Brisk flow without definite filling defects were noted. The Fistula was then re-accessed centrally towards the venous outflow lulu similar manner as described above and a 7F sheath was also inserted(venous sheath). The glidewire was inserted through the venous sheath andadvance centrally. It couldn't be advanced beyond where the cephalic arch. AKumpe catheter was advanced till the arch area, and an angiogram was performed which showed flow via multiple collaterals. Repeated attempts to cross the stenotic segment was unsuccessful. Subsequent angiogram alsorevealed an area of mild stenosis in the central cephalic vein. In a similar manner as described for the venous sheath, 2 mg of tPA were dispersed in the inflow segment via arterial sheath. The Glidewire was reinserted into the arterial sheath and the Kumpe catheter was manipulated over the Glidewire to the distal end of the clotted section with the help of ultrasound. The Glidewire was removedand 2mg of tPA was dispersed along the access. Similarly the Glidewire and Kumpe catheter were manipulated to the central extent of the clot and 2mg of tPA were dispersed in the clotted segment via Kumpe catheter after removal of the wire. The Kumpe catheter was removed. A Prosthetic Assistant rotational thrombectomy was used to macerate clot under thedual guidance of Fluoroscopy and ultrasound. The process was repeated untilmost of the access was free from clot. However, a short segment of adherentclot couldn't be completely removed. Repeat angiograms with the Kumpecatheter advance close to the arterial inflow, did not show flow limitation, or definite filling defects. Small bits of clots were aspirated from the side ports of both sheaths. Attention was then directed to the outflow stenosis, which was angioplastied with 8x40mm Conquest angioplasty balloon inflated to full effacement. Post angioplasty angiogram showed improvement in the caliberof the vein and brisk flow, without evidence of extravasation. All sheaths, wires and catheters were removed. Site of sheath access was sutured in a figure of 8 manner with 3-0 Nylon suture line andhemostasis was achieved. Hematoma formation was noted at the site of the central sheath so the stitches were removed and manual pressure held until hemostasis was achieved and no hematoma expansion was noted. A small hematoma was also present at the site of the outflow sheath. Complications: Small hematoma at sheath sites. Impression: Severe central stenosis, with aneurysmal dilation of the access and clots within the access. Angioplasty of stenotic outflow segment. Severe central stenosis with drainage via collateral veins,unable to be angioplastied. Declot of the access, with small residual adherent thrombus I was present through out the procedure. ESTIMATED BLOOD LOSS: 10-15cc > Interpreting Provider: Shalom Rome MD on 07/21/2023 1:59 PM [facility] ORDERABLES * NIACIN (VITAMIN B3) (07/21/2023 6:48 AM CDT) Nicotinic Acid None Det ng/mL 07/28/2023 1:38 PM CDT [facility] ([facility]) Comment: Serum or Plasma Reporting Limit: 10 ng/mL Synonym(s): Niacor(R); Niaspan(R); Slo-Niacin(R); Vitamin B3 Nicotinic acid occurs naturally in plants and animals and is also added to many foods as a vitamin supplement. Due to the large variability in the metabolism of nicotinic acid, the dosing preparation used (immediate-release vs. extended-release), and the mg doses used, the serum concentrations may range from less than 10 ng/mL to about 90954 ng/mL. After oral administration of an immediate-release tablet, peak plasma concentrations are achieved in 30 to 60 min; after oral administration of an extended- release capsule, peak plasma concentrations occur in 4 to 5 hours. The plasma half-life of nicotinic acid is about 1 hour. In one study, fasting plasma concentrations were reported to be approximately 10 ng/mL. In another study it was reported that the administration of a single 1000 mg extended-release tablet resulted in mean nicotinic acid concentrations of less than 50 ng/mL. The administration of multiple oral doses of nicotinic acid (for a total of 2000 mg) resulted in the following mean peak nicotinic acid plasma concentrations: 25 mg every 10 min. for 80 doses (over 13 hours): 1100 ng/mL 50 mg every 10 min. for 40 doses (over 6.5 hours): 5400 ng/mL 100 mg every 10 min. for 20 doses (over 3 hours): 15470 ng/mL This test should be considered as a therapeutic drug monitoring/toxicological test associated with niacin (Vitamin B3) supplementation. Care should be taken in the use of this test for basal Vitamin B3 determination. The supplied reference comment does not reflect normal, endogenous Vitamin B3 concentrations. Analysis by High Performance Liquid Chromatography/ Tandem Mass Spectrometry (LC-MS/MS) Nicotinamide 64 ng/mL 07/28/2023 1:38 PM [facility] ([facility]) Comment: Serum or Plasma Reporting Limit: 10 ng/mL Synonym(s): Niacinamide; Vitamin B3; Niacin(R) Nicotinamide is a metabolite of nicotinic acid, is the common form of niacin included in vitamin preparations and is also added to many foods as a vitamin supplement. Due to the large variability in the metabolism of nicotinic acid, plasma concentrations of this metabolite also are variable. In one study, fasting plasma concentrations were reported to be approximately 40 ng/mL. In another study it was reported that the administration of a single 1000 mg extended-release tablet of nicotinic acid resulted in a mean peak nicotinamide concentration of 400 ng/mL between 5 and 10 hours post dose, decreasing to about 100 ng/mL by 16 hours post dose. The administration of multiple oral doses of nicotinic acid (for a total of 2000 mg) resulted in the following mean peak nicotinamide plasma concentrations: 25 mg every 10 min. for 80 doses (over 13 hours): 1300 ng/mL 50 mg every 10 min. for 40 doses (over 6.5 hours): 2300 ng/mL 100 mg every 10 min. for 20 doses (over 3 hours): 2000 ng/mL This test should be considered as a therapeutic drug monitoring/toxicological test associated with niacin (Vitamin B3) supplementation. Care should be taken in the use of this test for basal Vitamin B3 determination. The supplied reference comment does not reflect normal, endogenous Vitamin B3 concentrations. Analysis by High Performance Liquid Chromatography/ Tandem Mass Spectrometry (LC-MS/MS) Nicotinuric Acid None Det ng/mL 07/28/20 23 1:38 PM [facility] ([facility]) Comment: Serum or Plasma Reporting Limit: 10 ng/mL Synonym(s): Niacin Metabolite Nicotinuric acid is a metabolite of nicotinic acid and nicotinamide. Due to the large variability in the metabolism of nicotinic acid and nicotinamide, plasma concentrations of this metabolite also are variable. In one study it was reported that the administration of a single 1000 mg extended-release tablet of nicotinic acid resulted in a mean peak nicotinuric acid concentration of over 1000 ng/mL within 2 hours post dose, decreasing to less than 200 ng/mL by 6 hours and less than 50 ng/mL by 12 hours post dose. The administration of multiple oral doses of nicotinic acid (for a total of 2000 mg) resulted in the following mean peak nicotinuric acid plasma concentrations: 25 mg every 10 min. for 80 doses (over 13 hours): 950 ng/mL 50 mg every 10 min. for 40 doses (over 6.5 hours): 2300 ng/mL 100 mg every 10 min. for 20 doses (over 3 hours): 5100 ng/mL This test should be considered as a therapeutic drug monitoring/toxicological test associated with niacin (Vitamin B3) supplementation. Care should be taken in the use of this test for basal Vitamin B3 determination. The supplied reference comment does not reflect normal, endogenous Vitamin B3 concentrations. Analysis by High Performance Liquid Chromatography/ Tandem Mass Spectrometry (LC-MS/MS) This test was developed and its performance characteristics determined by [facility]. It has not been cleared or approved by the [place] Food and Drug Administration. Testing performed at [facility] [employer] [address] [place] [id number] CLIA [id number] Blood BLOOD SPECIMEN / Unknown Venipuncture / Unknown 07/21/2023 6:48 AM CDT 07/21/2023 6:51 AM CDT [facility] - CHEMISTRY MELANIE FELIPE Performing Organization Address [facility]/ZIP Co de Phone Number [facility]) [address] [place] [address] * (ABNORMAL) VITAMIN E (07/21/2023 6:48 AM CDT) Pathologist [facility] Vitamin E Alpha Tocopherol 5.3(L) 5.5 - 18.0 mg/L 07/24/2023 1:40 PM CDT [facility] ([facility]) Comment: This test was developed and its performance characteristics determined by [facility]. It has not been cleared or approved by the US Food and Drug Administration. This test was performed in a CLIA certified laboratory and is intended for clinical purposes. Vitamin E Gamma Tocopherol 1.0 0.0 - 6.0 mg/L 07/24/2023 1:40 PM CDT [facility] ([facility]) Comment: Performed By: [facility] [address] [place] [address] Coremaker Floor: Angel Hill MD, PhD CLIA Number: [id number] Blood BLOOD SPECIMEN / Unknown Venipuncture / Unknown 07/21/2023 6:48 AM CDT 07/21/2023 6:51 AM CDT [facility] - CHEMISTRY MELANIE FELIPE Performing Organization Address [facility] Co de Phone Number [facility] ([facility]) [address] [place] [address] * VITAMIN B6 (07/21/2023 6:48 AM CDT) Vitamin B6 64.1 20.0 - 125.0 nmol/L 07/24/2023 10:31 AM [facility]) Comment: INTERPRETIVE INFORMATION: Vitamin B6 (Pyridoxal 5-Phosphate) Pyridoxal 5'-phosphate measured in a specimen collected following an 8-hour or overnight fast accurately indicates vitamin B6 nutritional status. Non-fasting specimen concentration reflects recent vitamin intake. This test was developed and its performance characteristics determined by [facility]. It has not been cleared or approved by the US Food and Drug Administration. This test was performed in a CLIA certified laboratory and is intended for clinical purposes. Performed By: [place] [address] Coremaker Floor: Angel Hill MD, PhD CLIA Number: [id number] Blood BLOOD SPECIMEN / Unknown Venipuncture / Unknown 07/21/2023 6:48 AM CDT 07/21/2023 6:51 AM CDT [facility] - CHEMISTRY MELANIE FELIPE Performing Organization Address [facility]/ZIP Co de Phone Number [facility]) [address] [place] [address] * CK BLOOD (07/21/2023 6:48 AM CDT) CK Total 134 30 - 200 U/L 07/21/2023 7:[address] [facility] Blood BLOOD SPECIMEN / Unknown Venipuncture / Unknown 07/21/2023 6:48 AM CDT 07/21/2023 6:54 AM CDT [facility] - CHEMISTRY MELANIE FELIPE [facility] [address] [place] [address], [facility] [phone] * (ABNORMAL) VITAMIN D 25-HYDROXY (07/21/2023 4:29 AM CDT) Vitamin D, 25 Hydroxy 26.0(L) 30.0 - 80.0 ng/mL 07/21/2023 7:[address] [facility] Comment: The recommendations for 25-Hydroxy Vitamin D clinical decision points are as follows: Deficient: <20.0 ng/mL Insufficient: 20.0 - 29.9 ng/mL Sufficient: 30.0 - 100.0 ng/mL Potential Toxicity: >100 ng/mL Reference: The Endocrine Society Clinical Practice Guidelines. 2011 If the 25-Hydroxy Vitamin D results are inconsitent with clinical evidence, it is recommended that follow-up testing using a method such as LC/MS/MS be performed to confirm the result. Blood BLOOD SPECIMEN / Unknown Venipuncture / Unknown 07/21/2023 4:29 AM CDT 07/21/2023 4:33 AM CDT [facility] - CHEMISTRY MELANIE FELIPE [facility] Organization Address City/State/ZIP Co de Phone Number [facility] [address] [place] [id number], [facility] [phone] * (ABNORMAL) HEPATIC FUNCTION PANEL (07/21/2023 4:29 AM CDT) Protein Total 7.4 6.0 - 8.3 g/dL 023 5:03 AM [facility] Albumin 2.2(L) 3.4 - 5.0 g/dL 07/21/2023 5:03 AM [facility] Bilirubin Total 1.5(H) 0.2 - 1.2 mg/dL 03/2023 5:03 AM [facility] Bilirubin Conjugated 0.9(H) 0.1 - 0.5 mg/dL 07/21/2023 5:03 AM [facility] Bilirubin Unconjugated 0.6 Unconjugated Bilirubin is a calculated value: Reference ranges have not been established. mg/dL 07/21/2023 5:03 AM [facility] Alkaline Phosphatase 357(H) 40 - 150 U/L 07/21/2023 5:03 AM [facility] ALT 392(H) 5 - 55 U/L 07/21/2023 5:03 AM [facility] AST 646(H) 5 - 34 U/L 07/21/2023 5:03 AM [facility] Albumin/Globulin Ratio 0.4(L) 1.1 - 2.3 07/21/2023 5:[address] [facility] Blood BLOOD SPECIMEN / Unknown Venipuncture / Unknown 07/21/2023 4:29 AM CDT 07/21/2023 4:33 AM CDT Janae Alexander LEARNING DESIGNER-AUDITOR [facility] - CHEM ISTRY ORDERABLES Performing Organization Address City/[facility]/ZIP Co de Phone Number [address] [address], [facility] [phone] * FOLATE (07/21/2023 4:29 AM CDT) Folate 7.5 7.0 - 31.4 ng/mL 07/21/2023 7:[address] [facility] Blood BLOOD SPECIMEN / Unknown Venipuncture / Unknown 07/21/2023 4:29 AM CDT 07/21/2023 4:33 AM CDT [facility] - CHEMISTRY ORDE RABLES [address] [address], [place] [phone] * (ABNORMAL) PROCALCITONIN LEVEL (07/21/2023 4:24 AM CDT) PROCALCITONIN 5.50(H) <=0.10 ng/mL 07/21/2023 5:[address] [facility] Blood BLOOD SPECIMEN / Unknown Venipuncture / Unknown 07/21/2023 4:24 AM CDT 07/21/2023 4:31 AM CDT Narrative [facility] - 07/21/2023 5:37 AM CDT The change in procalcitonin (PCT) concentration over time provides support in decision making on antibiotic discontinuation for suspected or confirmed septic patients. Follow-up samples should be tested once every 1-2 days based upon physician discretion taking into account the patient s evolution and progress. Consider discontinuation of antibiotic therapy if the PCT current is <= 0.5 ng/mL or if the delta PCT is > 80%. Duration of antibiotics should not be determined solely on PCT; established guidelines for the indication should be followed. PCT peak: Highest observed PCT concentration PCT current: Most recent PCT concentration Calculate delta PCT using the following equation: Delta PCT = PCT Peak PCT current X 100% PCT Peak The Change in Procalcitonin Calculator is available at [email or web address] If clinical picture has not improved and PCT remains high, reevaluate and consider treatment failure or other causes. Janae Alexander LEARNING DESIGNER-AUDITOR [facility] - CHEM ISTRY ORDERABLES Performing Organization Address City/[facility]/ZIP Co de Phone Number [address] [address], [facility] [phone] * (ABNORMAL) C-REACTIVE PROTEIN (07/21/2023 4:24 AM CDT) C-Reactive Protein 6.0(H) <=0.5 mg/dL 07/21/2023 5:[address] [facility] Blood BLOOD SPECIMEN / Unknown Venipuncture / Unknown 07/21/2023 4:24 AM CDT 07/21/2023 4:31 AM CDT Janae Alexander LEARNING DESIGNER-AUDITOR [facility] - CHEM ISTRY ORDERABLES Performing Organization Address [facility]/ZIP Co de Phone Number [address] [address], [facility] [phone] * MRI BRAIN WO CONTRAST (07/20/2023 6:53 PM CDT) Anatomical Region Laterality Modality Head Magnetic Resonan ce 07/21/2023 8:11 AM CDT Impressions 07/21/2023 8:26 AM CDT IMPRESSION: Unremarkable brain MRI performed without contrast. > Interpreting Provider: Darling Terry MD on 07/21/2023 8:26 AM Narrative 07/21/2023 8:26 AM CDT PROCEDURE: MRI BRAIN WO CONTRAST, DATE/TIME OF EXAM: 07/20/2023 6:53 PM, LOCATION [facility] INDICATION: R41.82: Altered mental status, unspecified altered mental status type G93.40: Acute encephalopathy ADDITIONAL CLINICAL INFORMATION: Ordering Provider Reason For Exam: concern for microemobli, COMPARISON: CT head 07/18/2023 TECHNIQUE: MRI of the brain was performed without contrast, according to standard protocol FINDINGS: No evidence of acute hemorrhage noted. Punctate focus of susceptibility in the right frontal lobe (image 29, 36, series 6) most likely secondary to chronic microhemorrhages. No evidence of acute cerebral infarction is seen. The ventricles are of normal size, shape, and morphology. No mass effect or midline shift is seen. No significant FLAIR signal abnormalities noted. The corpus callosum and sella appear normal. The posterior fossa, brainstem, and craniocervical junction appear normal. The visualized portions of the orbits, paranasal sinuses, and mastoids appear normal. Normal flow voids are demonstrated in the carotid arteries and basilar artery. The calvarium and visualized cervical spine appear normal. Procedure Note Darling Terry MD - 07/21/2023 PROCEDURE: MRI BRAIN WO CONTRAST, DATE/TIME OF EXAM: 07/20/2023 6:53 PM, LOCATION [facility] INDICATION: R41.82: Altered mental status, unspecified altered mental status type G93.40: Acute encephalopathy ADDITIONAL CLINICAL INFORMATION: Ordering Provider Reason For Exam: concern for microemobli, COMPARISON: CT head 07/18/2023 TECHNIQUE: MRI of the brain was performed without contrast, according to standard protocol FINDINGS: No evidence of acute hemorrhage noted. Punctate focus of susceptibilityin the right frontal lobe (image 29, 36, series 6) most likely secondary to chronic microhemorrhages. No evidence of acute cerebral infarction isseen. The ventricles are of normal size, shape, and morphology. No mass effector midline shift is seen. No significant FLAIR signal abnormalities noted.The corpus callosum and sella appear normal. The posterior fossa, brainstem, and craniocervical junction appear normal. The visualized portions of the orbits, paranasal sinuses, and mastoids appear normal. Normal flow voids are demonstrated in the carotidarteries and basilar artery. The calvarium and visualized cervical spine appear normal. IMPRESSION: Unremarkable brain MRI performed without contrast. > Interpreting Provider: Darling Terry MD on 07/21/2023 8:26 AM Ian Olvera LEARNING DESIGNER-AUDITOR [facility] MR ORDERABLES * BLOOD TYPE VERIFICATION (07/20/2023 3:40 PM CDT) ABO Rh O POS 07/20/2023 4:5 3 PM CDT [facility] BLOOD BANK LAB Blood Bank BLOOD SPECIMEN / Unknown 07/20/2023 3:40 PM CDT 07/20/2023 3:59 PM CDT Jayden Khan DO LAB - BLOOD BANK ORD ERABLES [facility] BLOOD BANK LAB [address] [place] [address], [facility] [phone] * VAS BILATERAL VENOUS DUPLEX LE (07/20/2023 3:13 PM CDT) Anatomical Region Laterality Modality Lower Extremity Intravascular Ul trasound 07/20/2023 2:05 PM CDT Narrative Procedure Note Homero Jerez MD - 07/22/2023 Ian Olvera LEARNING DESIGNER-AUDITOR [facility] VASCULAR [facility] O RDERABLES * XR CHEST 1VW PORTABLE (07/20/2023 11:22 AM CDT) Anatomical Region Laterality Modality Chest Radiographic Carmen ging 07/20/2023 12:1 5 PM CDT Narrative 07/20/2023 12:16 PM CDT EXAMINATION: XR CHEST 1VW PORTABLE HISTORY: R06.02: SOB (shortness of breath) on exertion J96.01: Acute respiratory failure with hypoxia (CMS/HCC) COMPARISON: Chest radiograph dated 07/18/2023 FINDINGS/IMPRESSION: Lines: *None. Unchanged diffuse patchy airspace and interstitial opacities favoring pulmonary edema. Airspace disease is not excluded. A small left effusion is not excluded. No pneumothorax is identified. Cardiac size is normal. The superior mediastinal contours are within normal limits. No free air is seen under the diaphragm. > Interpreting Provider: FATMATA SHAFFER MD on 07/20/2023 12:16 PM Procedure Note Fatmata Shaffer MD - 07/20/2023 EXAMINATION: XR CHEST 1VW PORTABLE HISTORY: R06.02: SOB (shortness of breath) on exertion J96.01: Acute respiratory failure with hypoxia (CMS/HCC) COMPARISON: Chest radiograph dated 07/18/2023 FINDINGS/IMPRESSION: Lines: *None. Unchanged diffuse patchy airspace and interstitial opacities favoring pulmonary edema. Airspace disease is not excluded. A small left effusionis not excluded. No pneumothorax is identified. Cardiac size is normal. The superior mediastinal contours are within normal limits. No free air isseen under the diaphragm. > Interpreting Provider: FATMATA SHAFFER MD on 07/20/2023 12:16 PM Savannah Piper LEARNING DESIGNER-AUDITOR [facility] ORDERABLES * ECHO COMPLETE (07/20/2023 9:18 AM CDT) BSA [id number] m2 SSM CV FUJ I PACS LV biplane EF 58 54 - 74 % SSM CV FUJI PACS LV A2C EF 62 52 - 76 % SSM CV FUJ I PACS LV A4C EF 56 46 - 78 % SSM CV FUJ I PACS LVOT stroke vol 98.96 mL SSM CV FUJI PACS LV stroke vol 2D teich 36.03 ml SSM CV FUJI PACS LV stroke vol index A4C MOD 96.653 ml/m2 SSM CV FUJI PACS LV Stroke Index 2D Teich 16.89 mL/m2 SSM CV FUJI PACS LVIDd 4.41 3.8 - 5.2 cm SSM CV FUJI PACS LVIDs 3.53 2.2 - 3.5 cm SSM CV FUJI PACS IVSd 2D 1.688 0.6 - 0.9 cm SSM CV FUJI PACS LVPWd 1.51 cm SSM CV FUJ I PACS Fractional Shortening 2D 20 28 - 44 % SSM CV FUJI PACS LV ESV BP 79.491 14 - 42 mL SSM CV FUJI PACS LV ESV index BP 37.3 8 - 24 mL/m2 SSM CV FUJI PACS LV ESV A2C 76.222 10 - 54 mL SSM CV FUJI PACS LV ESV index A2C 35.73 6 - 30 mL/m2 SSM CV FUJI PACS LV EDV BP 190.915 mL SSM CV FUJ I PACS LV ESV A4C 79.907 12 - 60 mL SSM CV FUJI PACS LV ESV index A4C 37.46 7 - 35 mL/m2 SSM CV FUJI PACS LV EDV index BP 89.5 29 - 61 mL/m2 SSM CV FUJI PACS LV EDV A2C 211.735 41 - 133 mL SSM CV FUJI PACS LV EDV index A2C 99.25 26 - 74 mL/m2 SSM CV FUJI PACS LV EDV A4C 172.875 mL SSM CV FU JI PACS LV ESV 2D 52.082 14 - 42 mL SSM CV FUJI PACS LV EDV index A4C 81.03 30 - 82 mL/m2 SSM CV FUJI PACS LV ESV index 2D 24.41 8 - 24 mL/m2 SSM CV FUJI PACS LV EDV 2D 88.112 46 - 106 mL SSM CV FUJI PACS LV EDV index 2D 41.30 29 - 61 mL/m2 SSM CV FUJI PACS LVOT diam 2.0 cm SSM CV FUJ I PACS LVOT area 3.04 cm2 SSM CV FUJ I PACS LV RWT 0.684 SSM CV FUJ I PACS LV Muñoz A2C 9.263 cm SSM CV F UJI PACS LV Muñoz A4C 9.151 cm SSM CV F UJI PACS IVS/LVPW 1.119 SSM CV FUJ I PACS LV mass 2D 291.8398 66 - 150 g SSM CV FUJI PACS LV mass index 2D 136.80 44 - 88 g/m2 SSM CV FUJI PACS MV E pk danica 153.996 cm/s SSM CV F UJI PACS MV avg E/e' ratio 25.468 SS M CV FUJI PACS MV A pk danica 120.839 cm/s SSM CV F UJI PACS MV E A ratio 1.27 SSM CV FUJI PACS MV E' lateral danica 6.212 cm/s SS M CV FUJI PACS MV DT 249 ms SSM CV FUJ I PACS MV E' septal danica 5.89 cm/s SSM CV FUJI PACS MV A duration 154 ms SSM CV FUJI PACS MV E/e' septal 26.145 SSM C V FUJI PACS MV E/e' lateral 24.792 SSM CV FUJI PACS TR pk danica 283.8 cm/s SSM CV [facility] I PACS P vein S/D ratio 1.10 SSM CV FUJI PACS LVOT pk danica 1.78 m/s SSM CV F UJI PACS LVOT mn danica 1.25 m/s SSM CV F UJI PACS LVOT mn grad 7.3 mmHg SSM CV FUJI PACS LVOT Cardiac Output 7.075 l/min SSM CV FUJI PACS LVOT Cardiac Index 3.32 l/min/m2 SSM CV FUJI PACS LA size 5.035 2.7 - 3.8 cm SSM CV FUJI PACS RV-muñoz basal diam 5.5 2.5 - 4.1 cm SSM CV FUJI PACS RV-muñoz longitudinal diam 9.9 5.9 - 8.3 cm [facility] RVIDd 4.4 cm SSM CV [facility] I PACS RVOT VTI 19.315 cm SSM CV [facility] I PACS TAPSE 2.259 1.7 cm SSM CV [facility] I PACS RVOT pk danica 0.81 m/s SSM CV F UJI PACS RA area 18.295 cm2 SSM CV [facility] I PACS AV mn grad 9 mmHg SSM CV FU JI PACS AV pk grad 19 mmHg SSM CV FU JI PACS AV mn danica 1.39 m/s SSM CV [facility] I PACS AV pk danica 2.17 m/s SSM CV [facility] I PACS AV VTI 34.997 cm SSM CV [facility] I PACS LVOT pk grad 12.665 mmHg [facility] LVOT VTI 32.548 cm SSM CV [facility] I PACS AV area cont VTI 2.8 cm2 SSM CV FUJI PACS AV area pk danica 2.5 cm2 SSM C V FUJI PACS AV Doppler danica index pk danica 0.819 SSM CV FUJI PACS LVOT stroke vol index 46.4 mL/m2 SSM CV FUJI PACS Dimensionless Index 0.93 SSM CV FUJI PACS AV pk danica regurg 427.325 cm/s SSM CV FUJI PACS MV decel slope 617.307 cm/s2 SSM C V FUJI PACS TV annulus 4.23 cm SSM CV FU JI PACS TR VTI 94.1 cm SSM CV FUJ I PACS TR pk grad 32 mmHg SSM CV FU JI PACS RVOT mn grad 2 mmHg SSM CV FUJI PACS RVOT pk grad 3 mmHg SSM CV FUJI PACS AK pk danica 241.614 cm/s SSM CV FUJ I PACS Ascending aorta 2.70 cm SSM CV FUJI PACS IVC size 2.5 cm SSM CV FUJ I PACS Max Age Predicted HR 183 SSM CV FUJI PACS LA ESV A4C MOD Index 29 ml/m2 SSM CV FUJI PACS Target HR 156 SSM CV FUJ I PACS [id number] 7.965 cm SSM CV FUJ I PACS [id number] 7.63 cm SSM CV FUJ I PACS Prox Asc Ao Diameter Index 1.267 cm SSM CV FUJI PACS AR VTI 198.87 SSM CV FUJ I PACS LV stroke vol BP 111.423 mL SSM CV FUJI PACS LVIDs index 1.66 1.3 - 2.1 cm/m2 SSM CV FUJI PACS LV LVIDd index 2.07 2.3 - 3.1 cm/m2 SSM CV FUJI PACS RVSP 47.0 mmHg SSM CV FUJ I PACS RAP 15.0 mmHg SSM CV FUJ I PACS Anatomical Region Laterality Modality Ultrasound Narrative 07/21/2023 8:14 AM CDT Left Ventricle: Left ventricle is moderately dilated. Severely increased wall thickness. Severely increased ventricular mass. Findings consistent with severe concentric hypertrophy. Normal systolic function. EF by 2D Ledesma biplane is 58%. Normal wall motion. Grade II diastolic dysfunction with elevated left atrial pressure. Right Ventricle: Right ventricle is moderately dilated. Left Atrium: Bulging of interatrial septum into left atrium suggestive of high right sided pressures. Left atrium is mildly dilated. Tricuspid Valve: Mild regurgitation. The pulmonary artery systolic pressure is mildly elevated. Estimated RVSP is 47.0 mmHg. Pericardium: Small pericardial effusion present. Mitral Valve: Severely calcified leaflets. Mild regurgitation. No stenosis. Aortic Valve: Mild regurgitation. Left Ventricle Left ventricle is moderately dilated. Severely increased wall thickness. Severely increased ventricular mass. Findings consistent with severe concentric hypertrophy. Normal systolic function. EF by 2D Ledesma biplane is 58%. Normal wall motion. Grade II diastolic dysfunction with elevated left atrial pressure. Right Ventricle Right ventricle is moderately dilated. Normal systolic function. Left Atrium Bulging of interatrial septum into left atrium suggestive of high right sided pressures. Left atrium is mildly dilated. Right Atrium Right atrium size is normal. IVC/SVC IVC diameter is greater than 21 mm and decreases less than 50% during inspiration; therefore the estimated right atrial pressure is elevated (~15 mmHg). Mitral Valve Severely calcified leaflets. Mild regurgitation. No stenosis. Tricuspid Valve Valve structure is normal. Mild regurgitation. The pulmonary artery systolic pressure is mildly elevated. Estimated RVSP is 47.0 mmHg. No stenosis. Aortic Valve Valve structure is trileaflet. Mild regurgitation. No stenosis. Pulmonic Valve Valve structure is normal. Mild regurgitation. No stenosis. Ascending Aorta Normal sized sinus of Valsalva (aortic root) and ascending aorta. Pericardium Small pericardial effusion present. Study Details Study quality was good. A complete 2D, color Doppler, spectral Doppler and M- mode echocardiogram was performed. The apical, parasternal and subcostal views were obtained. Patient exhibited sinus rhythm. Prior Study No prior study available for comparison. Procedure Note Delphine Ruff MD - 07/21/2023 Left Ventricle: Left ventricle is moderately dilated. Severelyincreased wall thickness. Severely increased ventricular mass. Findingsconsistent with severe concentric hypertrophy. Normal systolic function.EF by 2D Ledesma biplane is 58%. Normal wall motion. Grade II diastolicdysfunction with elevated left atrial pressure. Right Ventricle: Right ventricle is moderately dilated. Left Atrium: Bulging of interatrial septum into left atrium suggestiveof high right sided pressures. Left atrium is mildly dilated. Tricuspid Valve: Mild regurgitation. The pulmonary artery systolicpressure is mildly elevated. Estimated RVSP is 47.0 mmHg. Pericardium: Small pericardial effusion present. Mitral Valve: Severely calcified leaflets. Mild regurgitation. Nostenosis. Aortic Valve: Mild regurgitation. Ian Olvera LEARNING DESIGNER-AUDITOR [facility] ECHO CUPID * (ABNORMAL) LUPUS ANTICOAGULANT PANEL (07/20/2023 6:45 AM CDT) APTT 37.3 23.0 - 38.4 Seconds 07/21/2023 12:[address] [facility] PT 20.9(H) 12.1 - 14.8 Seconds 07/21/2023 12:[address] [facility] INR 1.8 See Comment 07/21/2023 12:[address] [facility] STACLOT-LA Buffer 45.5 Seconds 023 12:[address] [facility] [facility] Phospholipid 41.3 Seconds 07/21/2023 12:[address] [facility] Delta 4.2 <8.0 Seconds 07/21/2023 12:[address] [facility] Interpretation [facility] Negative 07/21/2023 12:[address] [facility] Comment:Up to 15-20% of elda ents with lupus anticoagulant associated with antiphospholipid antibody syndrome (APAS) will have negative [facility] results. For these patients we recommend additional testing to include the Dilute Alin Viper Venom Time (DRVVT) test. Immunoassay measurements of anti-cardiolipin and anti-beta-2 glycoprotein 1 are recommended if the DRVVT, and [facility] tests are negative and there is clinical suspicion of APAS. Blood BLOOD SPECIMEN / Unknown Venipuncture / Unknown 07/20/2023 6:45 AM CDT 07/20/2023 6:57 AM CDT Savannah Piper LEARNING DESIGNER-AUDITOR [facility] - KRISTIAN TOLOGY ORDERABLES [facility] [address] [place] [address], [facility] [phone] * US ABDOMEN LTD W COMP DOPPLER (07/19/2023 12:12 PM CDT) Anatomical Region Laterality Modality Abdomen Ultrasound 07/19/2023 6:55 PM CDT Impressions 07/20/2023 3:08 PM CDT IMPRESSION: 1. No discrete hepatic lesion or intrahepatic biliary dilation. Patent hepatic vasculature. 2. No evidence of cholelithiasis or acute cholecystitis. 3. Atrophic right kidney. IFATMATA MD have personally reviewed and interpreted this examination/study. > Interpreting Provider: FATMATA SHAFFER MD on 07/20/2023 3:08 PM Narrative 07/20/2023 3:08 PM CDT EXAMINATION: 1. Limited abdominal sonogram 2. Color and spectral Doppler evaluation of the hepatic vasculature HISTORY: R74.01: Transaminitis E80.6: Hyperbilirubinemia D69.59: Thrombocytopenia, secondary E88.09: Hypoalbuminemia COMPARISON: None FINDINGS: Abdomen: The pancreas is within normal limits. Hepatic echogenicity and echotexture are normal. No surface nodularity is noted. No solid hepatic observations are seen. The gallbladder is normal. No intra or extrahepatic biliary ductal dilatation is noted. The common bile duct measures 2 mm, within normal limits. The right kidney measures 7.4 cm in length. Cortical thinning is noted. No hydronephrosis, nephrolithiasis, or solid renal mass is present. The spleen measures 12.2 cm in length, within normal limits. Liver Doppler: Color and spectral Doppler evaluation demonstrates patency of the hepatic veins with appropriate flow direction and multiphasic waveforms. The main, left, and right portal veins appear patent with normal hepatopetal flow. The main portal vein demonstrates a normal phasic waveform and velocity measures 21 cm/s. The proper hepatic artery is patent and demonstrates a normal arterial waveform with brisk systolic upstroke and antegrade flow. Resistive index in the proper hepatic artery measures 0.79. Procedure Note Fatmata Shaffer MD - 07/20/2023 EXAMINATION: 1. Limited abdominal sonogram 2. Color and spectral Doppler evaluation of the hepatic vasculature HISTORY: R74.01: Transaminitis E80.6: Hyperbilirubinemia D69.59: Thrombocytopenia, secondary E88.09: Hypoalbuminemia COMPARISON: None FINDINGS: Abdomen: The pancreas is within normal limits. Hepatic echogenicity and echotexture are normal. No surface nodularityis noted. No solid hepatic observations are seen. The gallbladder is normal. No intra or extrahepatic biliary ductal dilatation is noted. The common bile duct measures 2 mm, within normal limits. The right kidney measures 7.4 cm in length. Cortical thinning is noted.No hydronephrosis, nephrolithiasis, or solid renal mass is present. The spleen measures 12.2 cm in length, within normal limits. Liver Doppler: Color and spectral Doppler evaluation demonstrates patency of thehepatic veins with appropriate flow direction and multiphasic waveforms. The main, left, and right portal veins appear patent with normal hepatopetal flow. The main portal vein demonstrates a normal phasic waveform and velocity measures 21 cm/s. The proper hepatic artery is patent and demonstrates a normal arterial waveform with brisk systolic upstroke and antegrade flow. Resistiveindex in the proper hepatic artery measures 0.79. IMPRESSION: 1. No discrete hepatic lesion or intrahepatic biliary dilation. Patent hepatic vasculature. 2. No evidence of cholelithiasis or acute cholecystitis. 3. Atrophic right kidney. I, FATMATA SHAFFER MD have personally reviewed and interpreted this examination/study. > Interpreting Provider: FATMATA SHAFFER MD on 07/20/2023 3:08 PM Ian Olvera LEARNING DESIGNER-AUDITOR APPRAISER US ORDERABLES * (ABNORMAL) RESPIRATORY PANEL WITH SARS-COV-2 BY PCR (STL) (07/19/2023 11:10 AM CDT) Adenovirus PCR Not detected Not detected 07/19/2023 4:07 PM CDT [facility] Coronavirus 229E PCR Not detected Not detected 07/19/2023 4:07 PM CDT [facility] Coronavirus HKU1 PCR Not detected Not detected 07/19/2023 4:07 PM CDT [facility] Coronavirus NL63 PCR Not detected Not detected 07/19/2023 4:07 PM CDT [facility] Coronavirus OC43 PCR Not detected Not detected 07/19/2023 4:07 PM CDT [facility] COVID-19 PCR Not detected Not detected 07/19/2023 4:07 PM CDT [facility] Human Metapneumovirus PCR Not detected Not detected 07/19/2023 4:07 PM CDT [facility] Human Rhinovirus/Enterov irus PCR Detected(A) Not detected 07/19/2023 4:07 PM CDT [facility] Influenza A PCR Not detected Not detected 07/19/2023 4:07 PM CDT [facility] Influenza B PCR Not detected Not detected 07/19/2023 4:07 PM CDT [facility] Parainfluenza Virus 1 PCR Not detected Not detected 07/19/2023 4:07 PM CDT [facility] Parainfluenza Virus 2 PCR Not detected Not detected 07/19/2023 4:07 PM CDT [facility] Parainfluenza Virus 3 PCR Not detected Not detected 07/19/2023 4:07 PM CDT [facility] Parainfluenza Virus 4 PCR Not detected Not detected 07/19/2023 4:07 PM CDT [facility] Respiratory Syncytial Virus PCR Not detected Not detected 07/19/2023 4:07 PM CDT [facility] Bordetella parapertussis PCR Not detected Not detected 07/19/2023 4:07 PM CDT [facility] Bordetella pertussis PCR Not detected Not detected 07/19/2023 4:07 PM CDT [facility] Chlamydia pneumoniae PCR Not detected Not detected 07/19/2023 4:07 PM CDT [facility] Mycoplasma pneumoniae PCR Not detected Not detected 07/19/2023 4:07 PM CDT [facility] Microbiology SPECIMEN FROM NASOPHARYNGEAL STRUCTURE / Unknown Collection / Unknown 07/19/2023 11:10 AM CDT 07/19/2023 11:16 AM CDT Narrative [facility] - 07/19/2023 4:07 PM CDT Contact and Droplet Precautions Required. This nucleic amplification assay has received FDA authorization via the [employer]. Ian Olvera LEARNING DESIGNER-AUDITOR APPRAISER LAB - MICROBIO LOGY ORDERABLES [facility] [address] [place] [address], [facility] [phone] * MRSA DNA PCR (07/19/2023 11:10 AM CDT) [facility] MRSA DNA by PCR Not detected Not detected 07/19/2023 4:48 PM CDT [facility] Microbiology SPECIMEN FROM NASAL FOSSAE / Unknown Collection / Unknown 07/19/2023 11:10 AM CDT 07/19/2023 11:16 AM CDT Narrative [facility] - 07/19/2023 4:48 PM CDT Methicillin-resistant Staphylococcus aureus (MRSA) DNA is not detected (presumed not colonized with MRSA). Ian Olvera [facility] - MICROBIO LOGY ORDERABLES Performing Organization Address City/[facility]/ZIP Co de Phone Number [facility] [address] [place] [address], [facility] [phone] * CULTURE BLOOD (07/19/2023 9:55 AM CDT) Only the most recent of2 resultswithin the time period is included. Culture No growth day 5 XIOMARA 07/24/2023 2:00 PM CDT [facility] Blood PERIPHERAL BLOOD / Unknown Venipuncture / Unknown 07/19/2023 9:55 AM CDT 07/19/2023 10:00 AM CDT Ian Olvera [facility] - MICROBIO LOGY ORDERABLES Performing Organization Address City/[facility]/ZIP Co de Phone Number [facility] [address] [place] [address], [facility] [phone] * TRICYCLICS ANTIDEPRESSANT CONFIRMATION BLOOD, QUANTITIVE (07/19/2023 9:50 AM CDT) Amitriptyline 0 <=1 ng/mL 07/21/2023 11:15 AM CDT [facility] Nortriptyline 0 <=1 ng/mL 07/21/2023 11:15 AM CDT [facility] Imipramine 0 <=1 ng/mL 07/21/2023 11:15 AM CDT [facility] Desipramine 0 <=1 ng/mL 07/21/2023 11:15 AM CDT [facility] Clomipramine 0 <=1 ng/mL 07/21/2023 11:15 AM CDT [facility] Doxepin 0 <=1 ng/mL 07/21/2023 11:15 AM CDT [facility] Blood BLOOD SPECIMEN / Unknown Venipuncture / Unknown 07/19/2023 9:50 AM CDT 07/19/2023 11:20 AM CDT Narrative [facility] - 07/21/2023 11:15 AM CDT Testing performed by Liquid Chromatography-Tandem Mass Spectrometry. This testing was developed by the [facility] in keeping with CLIA requirements. The test has not been cleared or approved by the U.S. Food and Drug Administration. Ian Olvera APRNPerformance Technology LAB - CHEMISTR Y ORDERABLES Performing Organization Address [facility] Co de Phone Number [facility] [address] [phone] * TRICYCLICS SCREEN BLOOD (07/19/2023 9:50 AM CDT) [facility] Tricyclic Antidepressants 86 80 - 200 ng/mL 07/19/2023 11:[address] [facility] Blood BLOOD SPECIMEN / Unknown Venipuncture / Unknown 07/19/2023 9:50 AM CDT 07/19/2023 9:[address] [facility] - 07/19/2023 11:46 AM CDT Confirmation quantitative assay has been ordered and sent to the tox lab with results to follow. Expected Values for Tricyclic Antidepressants: Pharmacokinetic studies have shown there is a marked individual variation in the therapeutic and toxic response to tricyclic antidepressants at similar blood concentrations. Cardiac effects have been demonstrated with TCA blood levels as low as 50-100 ng/mL. With TCA levels >500 ng/mL, the incidence of serious cardiac toxicity increases significantly. With TCA levels >1000 ng/mL, severe, sometimes fatal, cardiac and other side effects often occur. Many drugs significantly cross-react with this assay, including: diphenhydramine, cyclobenzoprine, gabapentin, and fluoxetine. Results should be confirmed by quantitative mass spectrometry. This assay should not be used for following trends. Ian Olvera LEARNING DESIGNERPerformance Technology LAB - CHEMISTR Y ORDERABLES Performing Organization Address City/[facility] Co de Phone Number [address] [address], [facility] [phone] * OSMOLALITY BLOOD (07/19/2023 9:50 AM CDT) Osmolality 296 270 - 300 mOsm/kg 07/19/2023 11:[address] [facility] Blood BLOOD SPECIMEN / Unknown Venipuncture / Unknown 07/19/2023 9:50 AM CDT 07/19/2023 10:04 AM CDT Ian Olvera LEARNING DESIGNER-AUDITOR [facility]IS[facility] LAB - CHEMISTR Y ORDERABLES Performing Organization Address [facility] Co de Phone Number [address] [address], [facility] [phone] * LACTIC ACID BLOOD (07/19/2023 9:50 AM CDT) Lactic Acid-Stat 1.0 <=2.0 mmol/L 07/19/2023 10:[address] [facility] Blood BLOOD SPECIMEN / Unknown Venipuncture / Unknown 07/19/2023 9:50 AM CDT 07/19/2023 10:04 AM CDT Ian Olvera APRN-AUDITOR [facility] LAB - CHEMISTR Y ORDERABLES Performing Organization Address [facility] Co de Phone Number [address] [address], [facility] [phone] * (ABNORMAL) VITAMIN B12 (07/19/2023 9:50 AM CDT) Vitamin B12 >2,000(H) 213 - 816 pg/mL 07/19/2023 10:[address] [facility] Blood BLOOD SPECIMEN / Unknown Venipuncture / Unknown 07/19/2023 9:50 AM CDT 07/19/2023 10:05 AM CDT Ian Olvera LEARNING DESIGNER-AUDITOR APPRAISER LAB - CHEMISTR Y ORDERABLES [address] [address], [facility] [phone] * AMMONIA (07/19/2023 9:50 AM CDT) Ammonia 32 <=72 umol/L 07/19/2023 10:[address] [facility] Blood BLOOD SPECIMEN / Unknown Venipuncture / Unknown 07/19/2023 9:50 AM CDT 07/19/2023 10:05 AM CDT Ian Nayelideb LEARNING DESIGNER-AUDITOR APPRAISER LAB - CHEMISTR Y ORDERABLES Performing Organization Address [facility] Co de Phone Number [address] [address], [facility] [phone] * ALCOHOL ETHYL BLOOD (07/19/2023 9:50 AM CDT) Ethanol (mg/dL) <10 <=10 mg/dL 10:[address] [facility] Ethanol Calculated (g/dL) <0.010 <0.010 g/dL 07/19/2023 10:[address] [facility] Blood BLOOD SPECIMEN / Unknown Venipuncture / Unknown 07/19/2023 9:50 AM CDT 07/19/2023 10:[address] [facility] - 07/19/2023 10:29 AM CDT Ethanol Interp <10: None Detected. Depression of GL ACCOUNTANT: >100 mg/dl Potentially Critical: >250 mg/dl Potentially Fatal >400 mg/dl Ethanol in the patient's blood will contribute to the osmolar gap. Ethanol's contribution to the osmolar gap can be estimated by dividing the concentration of ethanol in mg/dL by 4.6. This test is for clinical use only and does not equal a NEREYDA for legal purposes. Ian Nayelideb LEARNING DESIGNER-AUDITOR APPRAISER LAB - CHEMISTR Y ORDERABLES Performing Organization Address City/[facility]/ZIP Co de Phone Number [address] [address], [facility] [phone] * (ABNORMAL) SALICYLATE LEVEL BLOOD (07/19/2023 9:50 AM CDT) Salicylate <5(L) 15 - 30 mg/dL 07/19/2023 10:[address] [facility] Blood BLOOD SPECIMEN / Unknown Venipuncture / Unknown 07/19/2023 9:50 AM CDT 07/19/2023 10:[address] [facility] - 07/19/2023 10:29 AM CDT This test is not intended for use with low-dose aspirin therapy. Most patients on low-dose aspirin for cardiovascular prophylaxis will have serum concentrations near or below the lower limit of the analytical range. Ian Olvera LEARNING DESIGNER-AUDITOR APPRAISER LAB - CHEMISTR Y ORDERABLES Performing Organization Address City/State/[facility] Co de Phone Number [address] [address], [facility] [phone] * ACETAMINOPHEN LEVEL (07/19/2023 9:50 AM CDT) Acetaminophen <3.0 <3.0 ug/mL 07/19/2023 10:[address] [facility] Blood BLOOD SPECIMEN / Unknown Venipuncture / Unknown 07/19/2023 9:50 AM CDT 07/19/2023 10:[address] [facility] - 07/19/2023 10:29 AM CDT Acetaminophen Toxicity Levels (Hours Post Ingestion): >200 ug/mL at 4 hours >100 ug/mL at 8 hours >50 ug/mL at 12 hours For acute ingestion, please refer to Acetaminophen nomogram to determine the risk of toxicity based on time since ingestion and acetaminophen level (see link provided). Note the nomogram disclaimer. WARNING: Assessing the potential toxicity of an acetaminophen level on a standard risk nomogram must take into consideration many factors including any uncertainty of the time since ingestion or the possibility of other medications that may alter the peak level. Contact the [facility] at or reserved for healthcare professionals to assist you in evaluating potentially toxic acetaminophen levels. Ian Bragg LEARNING DESIGNER-AUDITOR APPRAISER LAB - CHEMISTR Y ORDERABLES [address] [address], [facility] [phone] * TSH REFLEX FREE T4 (07/19/2023 3:50 AM CDT) TSH 2.049 0.350 - 4.940 uIU/mL 07/19/2023 8:53 AM CDT [facility] Blood BLOOD SPECIMEN / Unknown Venipuncture / Unknown 07/19/2023 3:50 AM CDT 07/19/2023 4:10 AM CDT Ian BraggFreeman Neosho HospitalN-AUDITOR APPRAISER LAB - CHEMISTR Y ORDERABLES Performing Organization Address City/[facility]/ZIP Co de Phone Number [address] [address], [facility] [phone] * (ABNORMAL) HEMOGLOBIN A1C (07/19/2023 3:50 AM CDT) Hemoglobin A1c 9.2(H) <=5.6 % 07/19/2023 1:16 PM CDT [facility] Estimated Average Glucose 217 mg/dL 07/19/2023 1:16 PM CDT [facility] Comment: HbA1c Interpretation: Normal : < 5.7% Pre-diabetes: 5.7-6.4% Diabetes: Equal to or greater than 6.5% Test results diagnostic of diabetes should be repeated for confirmation. Treatment target values recommended by ADA and other clinical organizations should be used to evaluate metabolic control in patients. Reference: [place] [employer], Standards of Care in Diabetes -2020 In patients 70 years and older consider HbA1c target range of 7.0-7.5% (Reference: Rene Pacheco et al. JAMDA. 2012) The Sebia assay for the measurement of HbA1c is a National Glycohemoglobin Standardization Program (NGSP) certified method. Blood BLOOD SPECIMEN / Unknown Venipuncture / Unknown 07/19/2023 3:50 AM CDT 07/19/2023 4:04 AM CDT Janae Esvin Alexander APRN-AUDITOR [facility]PRAISER LAB - CHEM ISTRY ORDERABLES Performing Organization Address [facility]/ZIP Co de Phone Number [address] [address], [facility] [phone] * (ABNORMAL) HEPATITIS B SURFACE ANTIBODY (07/19/2023 3:50 AM CDT) Hepatitis B Virus Surface Antibody Reactive( A) Non-react jacquelin 07/19/2023 4:[address] [facility] Comment: > 12 mIU/mL Hepatitis B surface Antibody (HBsAb). Reactive for HBsAb - individual is considered immune to Hepatitis B Virus infection. Hepatitis B Surface Antibody Quantitative 500.9(H) <8.0 mIU/mL 07/19/2023 4:[address] [facility] Comment: Hepatitis B Surface Antibody Numeric Result Interpretation: Nonreactive: <8.0 mIU/mL Indeterminate: 8.0 - 12.0 mIU/mL Reactive: >12.0 mIU/mL Blood BLOOD SPECIMEN / Unknown Venipuncture / Unknown 07/19/2023 3:50 AM CDT 07/19/2023 4:04 AM CDT Hang Pearce MD LAB - CH EMISTRY ORDERABLES Performing Organization Address [facility]/ZIP Co de Phone Number [address] [address], [facility] [phone] * HEPATITIS B SURFACE ANTIGEN W RFLX CONFIRMATION (07/19/2023 3:50 AM CDT) Hepatitis B Virus Surface Antigen Non-reacti ve Non-reacti ve 07/19/2023 4:[address] [facility] Blood BLOOD SPECIMEN / Unknown Venipuncture / Unknown 07/19/2023 3:50 AM CDT 07/19/2023 4:04 AM CDT Hang Pearce MD LAB - CH EMISTRY ORDERABLES Performing Organization Address City/[facility]/ZIP Co de Phone Number [facility] [address] [place] [phone], [facility] [phone] * HEPATITIS SCREEN ACUTE (07/19/2023 3:50 AM CDT) Pathologist [facility] Hepatitis A Virus Antibody IgM Non-react jacquelin Non-reac tive 07/19/2023 9:[address] [facility] Hepatitis B Virus Surface Antigen Non-react jacquelin Non-reac tive 07/19/2023 9:[address] [facility] Hepatitis B Core Virus Antibody IgM Non-react jacquelin Non-reac tive 07/19/2023 9:[address] [facility] Hepatitis C Antibody Non-react jacquelin Non-reac tive 07/19/2023 9:[address] [facility] Comment:Hepatitis C Antibody screen indicates no serologic evidence of past or current infection with Hepatitis C Virus. Patients with unexplained liver disease who are immunocompromised or suspected of having acute Hepatitis C infection may benefit from Nucleic Acid Test (LORRI) for Hepatitis C Viral RNA to confirm Hepatitis C status. Blood BLOOD SPECIMEN / Unknown Venipuncture / Unknown 07/19/2023 3:50 AM CDT 07/19/2023 4:04 AM CDT Ian Olvera LEARNING DESIGNER-AUDITOR APPRAISER LAB - CHEMISTR Y ORDERABLES Performing Organization Address City/[facility]/ZIP Co de Phone Number [address] [address], [facility] [phone] * SARS-COV-2 (COVID-19) FLU A/B RSV PCR RAPID (07/18/2023 11:44 PM CDT) [facility] COVID-19 PCR Not detected Not detected 07/19/20 12:[address] [facility] Influenza A PCR Not detected Not detected 07/19/2023 12:[address] [facility] Influenza B PCR Not detected Not detected 07/19/2023 12:[address] [facility] RSV PCR Not detected Not detected 07/19/2023 12:39 AM CDT [facility] Microbiology SPECIMEN FROM NASOPHARYNGEAL STRUCTURE / Unknown Collection / Unknown 07/18/2023 11:44 PM CDT 07/18/2023 11:[address] [facility] - 07/19/2023 12:39 AM CDT This nucleic acid amplification assay has been authorized by the Food and Drug administration (FDA) under an Emergency Use Authorization (EUA). This test is only authorized for the duration of time the declaration that circumstances exist justifying the authorization of emergency use of in vitro diagnostic tests for detection of SARS-CoV-2 virus and/or diagnosis of COVID-19 infection under section 564(b)(1) of the Act, 21 U.S.C 360bbb-3 (b)(1), unless the authorization is terminated or revoked sooner. Fact Sheets for this EUA assay are available upon request. Vicki Anderson MD LAB - MICROBIOLOGY O RDERABLES Performing Organization Address City/[facility]/ZIP Co de Phone Number [address] [address], [place] [phone] * LACTIC ACID BLOOD REFLEX TO REPEAT (07/18/2023 11:44 PM CDT) Lactic Acid-Stat 1.9 <=2.0 mmol/L 07/19/2023 12:[address] [facility] Blood BLOOD SPECIMEN / Unknown Venipuncture / Unknown 07/18/2023 11:44 PM CDT 07/19/2023 12:00 AM CDT Vicki Anderson MD LAB - CHEMISTRY ORDE RABLES [address] [address], [place] [phone] * CT HEAD WO CONTRAST (07/18/2023 11:35 PM CDT) Anatomical Region Laterality Modality Head Computed Tomogra phy 07/18/2023 11:3 9 PM CDT Impressions 07/18/2023 11:46 PM CDT IMPRESSION: 1.No acute intracranial abnormality. 2.Age-indeterminate minimally displaced fractures of the right nasal bone and frontal process of the right maxilla. Recommend correlation with point tenderness in this region to assess for acuity. > Interpreting Provider: Ridge Magdaleno MD, PhD on 07/18/2023 11:46 PM Narrative 07/18/2023 11:46 PM CDT EXAM: CT HEAD WO CONTRAST, DATE/TIME OF EXAM: 07/18/2023 11:36 PM, LOCATION: [facility] HISTORY: R41.82: Altered mental status, unspecified altered mental status type ADDITIONAL CLINICAL INFORMATION: Ordering Provider Reason For Exam: Concern for ischemia vs bleeding. EXAMINATION: CT scan of the head without intravenous contrast TECHNIQUE: CT of the head was performed without intravenous contrast according to standard protocol. CT dose reduction technique was used, including Automated Exposure Control. COMPARISON: No prior similar studies are available for comparison. FINDINGS: BRAIN PARENCHYMA: No acute hemorrhage, large vascular territory infarct, or mass effect. White matter is within normal limits for age. VENTRICLES/EXTRA-AXIAL SPACES: No ventriculomegaly or extra-axial collection. Basal cisterns are patent. EXTRACRANIAL STRUCTURES: No acute calvarial abnormality. Age-indeterminate minimally displaced fractures of the right nasal bone and frontal process of the right maxilla (5/58). Normal soft tissues. Mild mucosal thickening of the left maxillary sinus; otherwise, remaining paranasal sinuses are clear. Trace opacities of the nasal cavity. Mastoid air cells are clear. Orbits are unremarkable. Minimal calcific atherosclerosis of the carotid siphons and mild calcific atherosclerosis of the V4 segments of the vertebral arteries. Procedure Note Ridge Magdaleno MD - 07/18/2023 EXAM: CT HEAD WO CONTRAST, DATE/TIME OF EXAM: 07/18/2023 11:36 PM, LOCATION: [facility] HISTORY: R41.82: Altered mental status, unspecified altered mentalstatus type ADDITIONAL CLINICAL INFORMATION: Ordering Provider Reason For Exam: Concern for ischemia vs bleeding. EXAMINATION: CT scan of the head without intravenous contrast TECHNIQUE: CT of the head was performed without intravenous contrast according to standard protocol. CT dose reduction technique was used, including Automated Exposure Control. COMPARISON: No prior similar studies are available for comparison. FINDINGS: BRAIN PARENCHYMA: No acute hemorrhage, large vascular territory infarct,or mass effect. White matter is within normal limits for age. VENTRICLES/EXTRA-AXIAL SPACES: No ventriculomegaly or extra-axial collection. Basal cisterns are patent. EXTRACRANIAL STRUCTURES: No acute calvarial abnormality.Age-indeterminate minimally displaced fractures of the right nasal bone and frontalprocess of the right maxilla (5/58). Normal soft tissues. Mild mucosalthickening of the left maxillary sinus; otherwise, remaining paranasal sinuses are clear. Trace opacities of the nasal cavity. Mastoid air cells are clear. Orbits are unremarkable. Minimal calcific atherosclerosis of the carotid siphons and mild calcific atherosclerosis of the V4 segments of the vertebral arteries. IMPRESSION: 1.No acute intracranial abnormality. 2.Age-indeterminate minimally displaced fractures of the right nasalbone and frontal process of the right maxilla. Recommend correlation withpoint tenderness in this region to assess for acuity. > Interpreting Provider: Ridge Magdaleno MD, PhD on 07/18/2023 11:46 PM Glenn Diaz MD CT ORDERABLES * (ABNORMAL) TROPONIN-I HIGH SENSITIVE REFLEX 1HOUR (07/18/2023 10:13 PM CDT) Pathologist [facility] Troponin I High Sensitive 87(H) <=14 ng/L 07/18/2023 11:[address] [facility] Delta Troponin I HS 07/18/2023 11:[address] [facility] Comment:Delta value intentio dunia not calculated. Baseline to 1 hour specimen collection interval exceeded. Blood BLOOD SPECIMEN / Unknown Venipuncture / Unknown 07/18/2023 10:13 PM CDT 07/18/2023 10:25 PM CDT Hai Mukherjee PA-C LAB - CHEM ISTRY ORDERABLES [facility] [address] [place] [address], [facility] [phone] * (ABNORMAL) BLOOD GASES BRANDIN + COOX PANEL (07/18/2023 10:13 PM CDT) pH Venous 7.38 7.32 - 7.42 pH 07/18/2023 10:25 PM CDT [facility] pO2 Venous 63(H) 35 - 40 mmHg 07/18/2023 10:25 PM [facility] pCO2 Venous 42 40 - 50 mmHg 07/18/2023 10:25 PM [facility] HCO3 Venous 24.8 20 - 30 mmol/L 07/18/2023 10:25 PM [facility] Base Excess Venous -0.4 -2.0 - 2.0 mmol/L 07/18/2023 10:25 PM [facility] Oxyhemoglobin Venous 87.4 % 12/2022 10:25 PM [facility] Deoxyhemoglobin (HHB) Venous % 8.7 % 07/18/2023 10:25 PM [facility] Methemoglobin <0.8 0.0 - 2.0 % 07/18/2023 10:25 PM [facility] Carboxyhemoglobin 3.3(H) 0.0 - 2.0 % 2022 10:25 PM [facility] O2 Content Venous 11.4 Interpret within clinical context ml/dL 07/18/2023 10:25 PM [facility] Hemoglobin by COOX 9.2(L) 12.0 - 15.6 g/dL 07/18/2023 10:25 PM [facility] O2 Saturation Venous 91 >=70 % 12/2022 10:25 PM [facility] FI O2 Mixed Venous 32.0 % 2022 10:25 PM [facility] Blood BLOOD SPECIMEN / Unknown Venipuncture / Unknown 07/18/2023 10:13 PM T 07/18/2023 10:18 PM [facility] - 07/18/2023 10:25 PM [facility] Carboxyhemoglobin Normal Concentration: Non-smokers: 0-2%; Smokers: 0-9%; Toxic: >20% Vicki Anderson MD LAB - BLOOD GASES OR DERABLES [facility] [address] [place] [address], [facility] [phone] * XR CHEST 2VW (07/18/2023 8:53 PM CDT) Anatomical Region Laterality Modality Chest Radiographic Carmen ging 07/18/2023 8:54 PM CDT Narrative 07/19/2023 8:48 AM CDT PROCEDURE: XR CHEST 2VW, DATE/TIME OF EXAM: 07/18/2023 8:54 PM, LOCATION [facility] INDICATION: R06.02: SOB (shortness of breath) on exertion ADDITIONAL CLINICAL INFORMATION: Ordering Provider Reason For Exam: R/o pleural effusion COMPARISON: None. TECHNIQUE: Frontal and lateral radiographs of the chest. FINDINGS/IMPRESSION: There are diffuse patchy airspace and interstitial opacities consistent with pulmonary edema. Multifocal infection can also have a similar appearance. Suggestion of small bilateral pleural effusions. Heart appears borderline enlarged. No pneumothorax. The visible bony thorax is intact. Report dictated by Pepe Borrero MD, MD (residential program director). Hill Lima MD have personally reviewed and interpreted this examination/study. > Interpreting Provider: Hill Reynolds MD on 07/19/2023 8:48 AM Procedure Note Hill Reynolds MD - 07/19/2023 PROCEDURE: XR CHEST 2VW, DATE/TIME OF EXAM: 07/18/2023 8:54 PM, LOCATION [facility] INDICATION: R06.02: SOB (shortness of breath) on exertion ADDITIONAL CLINICAL INFORMATION: Ordering Provider Reason For Exam: R/o pleural effusion COMPARISON: None. TECHNIQUE: Frontal and lateral radiographs of the chest. FINDINGS/IMPRESSION: There are diffuse patchy airspace and interstitial opacities consistent with pulmonary edema. Multifocal infection can also have a similar appearance. Suggestion of small bilateral pleural effusions. Heartappears borderline enlarged. No pneumothorax. The visible bony thorax is intact. Report dictated by Pepe Borrero MD, (residential program director). Hill Lima MD have personally reviewed and interpreted this examination/study. > Interpreting Provider: Hill Reynolds MD on 07/19/2023 8:48AM Hai Mukherjee PA-C DIAGNOSTIC IMAGING ORDERABLES * (ABNORMAL) TROPONIN-I HIGH SENSITIVE BASELINE + 1HR (07/18/2023 8:38 PM CDT) Pathologist [facility] Troponin I High Sensitive 122(H) <=14 ng/L 07/18/2023 9:[address] [facility] Blood BLOOD SPECIMEN / Unknown Venipuncture / Unknown 07/18/2023 8:38 PM CDT 07/18/2023 8:47 PM CDT Hai Mukherjee PA-C LAB - CHEM ISTRY ORDERABLES Performing Organization Address City/[facility]/ZIP Co de Phone Number [address] [address], [facility] [phone] * (ABNORMAL) B-TYPE NATRIURETIC PEPTIDE (07/18/2023 8:38 PM CDT) Pathologist [facility] BNP 2,653(H) <100 pg/mL 07/18/2023 9:[address] [facility] Comment: A decision threshold of 100 pg/mL has been demonstrated to provide the maximal combination of sensitivity, specificity and predictive value for the diagnosis of congestive heart failure (CHF). Virtually all patients with no evidence of CHF have BNP values less than 100 pg/mL. A BNP value greater than 100 pg/mL is consistent with the diagnosis of CHF in the appropriate clinical setting. In a study of 693 patients (male and female) with diagnosed CHF, the following values were determined based on the NYHA functional classification system: NYHA Functional Class Mean Valule (pg/mL) % >100 pg/mL I 320 58.1 II 432 73.0 III 656 79.0 IV 1635 98.3 Blood BLOOD SPECIMEN / Unknown Venipuncture / Unknown 07/18/2023 8:38 PM CDT 07/18/2023 8:48 PM CDT Hai Mukherjee PA-C LAB - CHEM ISTRY ORDERABLES [address] [address], [facility] [phone] * XR ABD OBSTR SERIES (12/04/2017 12:50 PM ANGLE SHEAR OPERATOR) Anatomical Region Laterality Modality Abdomen Radiographic Carmen ging 12/04/2017 1:31 PM ANGLE SHEAR OPERATOR Narrative 12/04/2017 1:32 PM ANGLE SHEAR OPERATOR Exam: Supine and upright AP views of the abdomen Indication: Abdominal pain Findings: There is a nonspecific bowel gas pattern with no evidence of obstruction. There is no free air. There are no definitive renal or ureteral stones. Procedure Note Zeke Kirby MD - 12/04/2017 Exam: Supine and upright AP views of the abdomen Indication: Abdominal pain Findings: There is a nonspecific bowel gas pattern with no evidence of obstruction. There is no free air. There are no definitive renal or ureteral stones. Elif Mcneill PA-Dave DIAGNOSTIC IMAGING ORDERABLES * (ABNORMAL) URINALYSIS MICROSCOPIC ONLY W/REFLEX CULTURE (12/04/2017 12:38 PM ANGLE SHEAR OPERATOR) Reflex Status Culture not indicated 12/04/2017 1:04 PM ANGLE SHEAR OPERATOR [facility] RBC UA 0-5 0-5, None Seen # /hpf 12/04/2017 1:04 PM ANGLE SHEAR OPERATOR [facility] WBC UA 0-5 0-5, None Seen # /hpf 12/04/2017 1:04 PM ANGLE SHEAR OPERATOR [facility] Bacteria UA Trace(A) None Seen 12/04/2017 1:04 PM ANGLE SHEAR OPERATOR [facility] Squamous Epithelial Cells 0-2 None Seen, 0-2, 3-5 /hpf 12/04/2017 1:04 PM ANGLE SHEAR OPERATOR [facility] Mucus UA 1+ /LPF 12/04/2017 1:04 PM ANGLE SHEAR OPERATOR [facility] Hyaline Casts 3-5(A) None Seen, 0-2 # /lpf 12/04/2017 1:04 PM ANGLE SHEAR OPERATOR [facility] Urine URINE SPECIMEN OBTAINED BY CLEAN CATCH PROCEDURE / Unknown Collection / Unknown 12/04/2017 12:38 PM ANGLE SHEAR OPERATOR 12/04/2017 12:43 PM ANGLE SHEAR OPERATOR Narrative [facility] - 12/04/2017 1:04 PM ANGLE SHEAR OPERATOR Stan Miller MD LAB - URINALYSIS ORD ERABLES Performing Organization Address [facility]/ZIP Co de Phone Number [facility] [address] [place] [address] * (ABNORMAL) URINALYSIS ROUTINE W/REFLEX TO CULTURE (12/04/2017 12:38 PM ANGLE SHEAR OPERATOR) Color UA Yellow Straw, Yellow 12/04/2017 12:55 PM ANGLE SHEAR OPERATOR [facility] Clarity UA Clear Clear 12/04/2017 12:55 PM ANGLE SHEAR OPERATOR [facility] Glucose UA 2+(A) Negative 12/04/2017 12:55 PM ANGLE SHEAR OPERATOR [facility] Bilirubin UA Negative Negative 12/04/2017 12:55 PM ANGLE SHEAR OPERATOR [facility] Ketone UA 1+(A) Negative 12/04/2017 12:55 PM [facility] Specific Rio UA 1.015 1.005 - 1.030 12/04/2017 12:55 PM ANGLE SHEAR OPERATOR [facility] Blood UA Negative Negative 12/04/2017 12:55 PM ANGLE SHEAR OPERATOR [facility] pH UA 6.0 5.0 - 8.0 pH 12/04/2017 12:55 PM ANGLE SHEAR OPERATOR [facility] Protein UA 3+(A) Negative 12/04/2017 12:55 PM ANGLE SHEAR OPERATOR [facility] Urobilinogen UA Negative Negative mg/dL 12/04/2017 12:55 PM ANGLE SHEAR OPERATOR [facility] Nitrite UA Negative Negative 12/04/2017 12:55 PM ANGLE SHEAR OPERATOR [facility] Leukocyte UA Negative Negative 12/04/2017 12:55 PM ANGLE SHEAR OPERATOR [facility] Urine Microscopy Urine microscopy to follow 12/04/2017 12:55 PM [facility] Reflex Status Culture not indicated 12/04/2017 12:55 PM ANGLE SHEAR OPERATOR [facility] Urine URINE SPECIMEN OBTAINED BY CLEAN CATCH PROCEDURE / Unknown Collection / Unknown 12/04/2017 12:38 PM ANGLE SHEAR OPERATOR 12/04/2017 12:43 PM ANGLE SHEAR OPERATOR Narrative [facility] - 12/04/2017 12:55 PM ANGLE SHEAR OPERATOR Stan Miller MD LAB - URINALYSIS ORD ERABLES Performing Organization Address [facility]/ZIP Co de Phone Number [facility] [address] [place] [address] * (ABNORMAL) LIPASE BLOOD (12/04/2017 11:01 AM ANGLE SHEAR OPERATOR) Only the most recent of2 resultswithin the time period is included. Lipase 62(L) 73 - 393 U/L 12/04/2017 11:24 AM ANGLE SHEAR OPERATOR [facility] Blood BLOOD SPECIMEN / Unknown Venipuncture / Unknown 12/04/2017 11:01 AM ANGLE SHEAR OPERATOR 12/04/2017 11:04 AM ANGLE SHEAR OPERATOR Elif Mcneill PA-C LAB - CHEMISTRY ORD ERABLES [facility] [address] [place] [address] Care Teams Packing Inspector Relationship Specialty [place] [address] [facility] [address] PCP - General Internal Medicine 12/04/17
--- OUTSIDE RECORDS SUMMARY | 2025-01-09 18:56 | XMS_ITS | Referral Summary ---
Author Organization [facility] [employer] Address [address] [place] [address] Care Team Providers Care Maintenance Mechanic Name Role Phone Anna Cobian MD Primary Care Provid er Source Comments [facility] [employer],non-owned Affiliates and Associated Physician Practices is amultiple site organization consisting of ambulatory clinics and hospital sitesin [place], [place], [place] and [place]. This disclosure is being madepursuant to the Care Everywhere program and may not contain all information available regarding this patient. Last updated 18.[facility] [employer] Allergies No known active allergies Medications * Be aware that medications may not be up to date on this document. Alwaysverify current medications with the patient. Medication Sig Dispensed Refills Start Date End Date Status insulin glargine (Lantus/Semglee) 100 units/mL penIndications:Ty pe 2 Diabetes Mellitus Inject 40 (forty) Units subcutaneously every 24 hours for 30 days Reasons: Type 2 Diabetes 12 mL 07/26/2023 Active insulin aspart (NovoLOG FLEXPEN) penIndications:Ty pe 2 Diabetes Mellitus Inject 10 (ten) Units subcutaneously 3 times daily before meals for 30 days Reasons: Type 2 Diabetes 9 mL 07/26/2023 Active atorvastatin (Lipitor) 10 MG tabletIndications :Hyperlipidemia Take 1 (one) tablet by mouth at bedtime for 30 days Reasons: High Amount of Fats in the Blood 30 tablet 07/26/2023 Active carvedilol (Coreg) 25 MG tabletIndications :Hypertension Take 1 (one) tablet by mouth 2 times daily with morning and evening meal for 30 days Reasons: High Blood Pressure Disorder 60 tablet 07/26/2023 Active amLODIPine (Norvasc) 10 MG tabletIndications :Hypertension Take 1 (one) tablet by mouth once daily for 30 days Reasons: High Blood Pressure Disorder 30 tablet 07/27/2023 Active epoetin (Epogen; Procrit) 4000 UNIT/ML injection 1 mL by Intravenous route Give in dialysis on Thursday, & Thursday07/27/2023 Active hydrALAZINE (Apresoline) 25 MG tabletIndications :Hypertension Take 1 (one) tablet by mouth 3 times daily for 30 days Reasons: High Blood Pressure Disorder 90 tablet 07/26/2023 Active calcium acetate (Phoslo) 667 MG capsuleIndication s:Hyperphosphatem ia Take 1 (one) capsule by mouth 3 times daily with meals for 30 days Reasons: High Amount of Phosphate in the Blood 90 capsule 07/26/2023 Active sevelamer carbonate (Renvela) 800 MG Take 3 (three) tablets by mouth 3 times daily with meals for 30 days 270 tablet 08/08/2023 Active pantoprazole EC (Protonix) 40 MG tablet Take 1 (one) tablet by mouth daily before breakfast for 30 days 30 tablet 08/08/2023 Active Active Problems Problem Noted Date Diagnosed [...] respiratory failure with hypoxia 07/18/2023 07/26/2023 Immunizations Name Administration Dates Next Due FLU VACCINE TRI IIV3 SPLIT I M (FLUVIRIN) 10/14/2017,08/20/2016 INFLUENZA VACCINE, QUADR. (F LUZONE; FLULAVAL; FLUARIX; AFLURIA QUADRIVALENT; 6MO+), 0.5 ML (IIV4) 10/07/2022(Deferred: Patient Refused),08/12/2019 PNEUMOCOCCAL PPSV23 10/26/2019 Pneumococcal Pcv13 Conj 01/09/2016 TD (AGE 7-ADULT) 12/24/2016 Social History Tobacco Use Types Packs/Day Years [...] Mass Index 28.89 09/10/2023 3:39 PM CDT Functional Status Functional Status Response Date of Assess ment Is person deaf or have serious hearing difficult y? No 07/23/2023 Is person blind or have serious difficulty seein g? No 07/23/2023 Does person have serious dif ficulty walking/climbing stairs? No 07/23/2023 Does person have difficulty dressing/bathing? No 07/23/2023 Does person have difficulty doing errands alone? No 07/23/2023 Cognitive Status Response Date of Assessm ent Does person have difficulty concentrating/remembering/making decisions? No 07/23/2023 Plan of Treatment Not on file Procedures Procedure Name Priority Date/Time Associated Diagnosis Comments HEPATITIS SCREEN ACUTE STAT 07/19/2023 3:50 AM CDT from Last 3 Months or Most Recently Relevant to Health Maintenance Results * HEPATITIS SCREEN ACUTE (07/19/2023 3:50 AM CDT) Hepatitis A Virus Antibody IgM Non-react jacquelin Non-reac tive 07/19/2023 9:52 AM CDT [facility] Hepatitis B Virus Surface Antigen Non-react jacquelin Non-reac tive 07/19/2023 9:52 AM CDT [facility] Hepatitis B Core Virus Antibody IgM Non-react jacquelin Non-reac tive 07/19/2023 9:52 AM CDT [facility] Hepatitis C Antibody Non-react jacquelin Non-reac tive 07/19/2023 9:52 AM CDT [facility] Comment:Hepatitis C Antibody screen indicates no serologic [...] CDT 07/19/2023 4:04 AM CDT Ian Olvera HORSE BREEDER-SOLAR INSTALLER PV LAB - CHEMISTR Y ORDERABLES Performing Organization Address City/State/[facility] Co de Phone Number [facility] [address] [address], [facility] [phone] from Last 3 Months or Most Recently Relevant to Health Maintenance Advance Directives * Full Code (Latest Code Status on File) Date Activated Date Inactivated Comments 08/06/2023 9:12 AM 08/08/2023 5:01 PM * Full Code Date Activated Date Inactivated Comments 07/19/2023 1:08 AM 07/26/2023 5:09 PM Care Teams Maintenance Mechanic Relationship Specialty [place] [address] [address] PCP - General Internal Medicine 12/04/17
--- OUTSIDE RECORDS SUMMARY | 2025-01-09 18:56 | XMS_ITS | Clinical Summary ---
Author Organization [facility] [employer] Address [address] [place] [address] Care Team Providers Care Teacher Name Role Phone Anna Cobian MD Primary Care Provid er Source Comments [facility],non-owned Affiliates and Associated Physician Practices is amultiple site organization consisting of ambulatory clinics and hospital sitesin [place], [place], [place] and [place]. This disclosure is being madepursuant to the Care Everywhere program and may not contain all information available regarding this patient. Last updated 18.[facility] Allergies No known active allergies Medications * [...] Pcv13 Conj 01/09/2016 TD (AGE 7-ADULT) 12/24/2016 Family History Medical History Relation Name Comments Diabetes - Type 2 Brother Cancer - Prostate Father Diabetes - Type 2 Father Diabetes - Type 2 Mother Diabetes - Type 2 Sister Relation Name Status Comments Brother Father Mother Sister Social History Tobacco Use Types Packs/Day Years [...] Mass Index 28.89 09/10/2023 3:39 PM CDT Plan of Treatment Health Maintenance Due Date Last Done Comments PAP SMEAR 1985 HIV SCREENING 2000 HEPATITIS B VACCINE (1 of 3 - 19+ 3-dose series) 2004 COVID-19 VACCINE ( - season) 2024 06/27/2022, 02/13/2021, 01/23/2021 INFLUENZA VACCINE (#1) 2024 9, 10/14/2017, 08/20/2016, Additional history exists DEPRESSION SCREENING 11/16/2024 MEDICARE AWV CALENDAR YEAR 2024 DTAP/TDAP/TD VACCINES (2 - Td or Tdap) 12/24/2026 12/24/2016 PNEUMOCOCCAL VACCINE (3 of 3 - PCV20 or PCV21) 2035 10/26/2019, 01/09/2016 ZOSTER VACCINE (1 of 2) 2035 HEPATITIS C SCREENING Completed 07/19/2023 HIB VACCINE Aged Out No longer eligi ble based on patient's age to complete this topic HPV VACCINE Aged Out No longer eligi ble based on patient's age to complete this topic MENINGOCOCCAL (Group B) VACCINE Aged Out No longer eligible based on patient's age to complete this topic MENINGOCOCCAL VACCINE Aged Out No lisa katia eligible based on patient's age to complete this topic Procedures Procedure Name Priority Date/Time Associated Diagnosis Comments HEPATITIS SCREEN ACUTE STAT 07/19/2023 3:50 AM CDT from Last 3 Months or Most Recently Relevant to Health Maintenance Results * HEPATITIS SCREEN ACUTE (07/19/2023 3:50 AM CDT) Hepatitis A Virus Antibody IgM Non-react jacquelin Non-reac tive 07/19/2023 9:52 AM CDT [facility] Hepatitis B Virus Surface Antigen Non-react jacquelin Non-reac tive 07/19/2023 9:52 AM CDT [facility] Hepatitis B Core Virus Antibody IgM Non-react jacquelin Non-reac tive 07/19/2023 9:52 AM CDT [facility] Hepatitis C Antibody Non-react jacquelin Non-reac tive 07/19/2023 9:52 AM T [facility] Comment:Hepatitis C Antibody screen indicates no [...] CDT 07/19/2023 4:04 AM CDT Ian Olvera BRINE TANK OPERATOR-SWEET POTATO DISINTEGRATOR LAB - CHEMISTR Y ORDERABLES Performing Organization Address City/State/[facility] Co de Phone Number [facility] [address] [place] [address], [facility] [phone] from Last 3 Months or Most Recently Relevant to Health Maintenance Advance Directives * Full Code (Latest Code Status on File) Date Activated Date Inactivated Comments 08/06/2023 9:12 AM 08/08/2023 5:01 PM * Full Code Date Activated Date Inactivated Comments 07/19/2023 1:08 AM 07/26/2023 5:09 PM Care Teams Teacher Relationship Specialty [place] [address] [place] [address] PCP - General Internal Medicine 12/04/17
[2025-01-09 19:07] LABS: Magnesium 1.8 mg/dL (1.6-2.3)
[2025-01-09 19:18] LABS: Alanine Aminotransferase 15 U/L (6-35); Albumin Level 4.4 g/dL (3.5-5.1); Alkaline Phosphatase 145 U/L (38-126); Anion Gap 19 mmol/L (4-12); Aspartate Amino Transferase 30 U/L (14-36); Bilirubin,Total 0.8 mg/dL (0.2-1.3); Blood Urea Nitrogen 73 mg/dL (7-17); Calcium 6.3 mg/dL (8.4-10.2); Carbon Dioxide 26 mmol/L (22-30); Chloride 90 mmol/L (98-107); Glucose 110 mg/dL (65-110); Lipase 120 U/L (23-300); Potassium 5.4 mmol/L (3.4-5.0); Sodium 135 mmol/L (137-145)
[2025-01-09 19:27] LABS: Estimated Glomerular Filt Rate 3
[2025-01-09 19:33] LABS: Beta HCG Quantitative < 2.39 mIU/ML
--- OUTSIDE RECORDS SUMMARY | 2025-01-10 01:02 | XMS_ITS | Clinical Summary ---
Author Organization [facility] Address [address] [place] [address] Phone Care Team Providers Care Neck Pinner Name Role Phone Anna Cobian MD Primary [...] Advance Directives For more information, please contact: [phone] * Full Code (Latest Code Status on File) Date Activated Date Inactivated Comments 02/12/2018 7:06 AM 02/12/2018 10:20 AM Care Teams Neck Pinner Relationship Specialty Start Date End Date Anna Cobian MD PCP - General Internal Medicine 08/04/14
--- OUTSIDE RECORDS SUMMARY | 2025-01-10 01:02 | XMS_ITS | Continuity of Care Document ---
Author Organization [facility] Address [address] [place] [address] Phone Care Team Providers Care Production Counter Name Role Phone Cornell Rodríguez MD Unavailable [...] Diagnoses Date Provider Providers Copied on Encounter [facility], [address] [place] [address], [id number], tel:[phone] [facility] No Information Anne Sarabia. [address] [place] [address], [id number], [place]. tel:[phone] [facility], [address] [place] [address], [id number], [place] tel:[phone] [facility] End stage renal disease Albjude Huffmany. [address] [place] [address], [id number], [place]. tel:[phone] Referring Provider: Landy Rdz, [address] [place] [address]; [facility] [address] [place], [address]. tel:[phone] [facility], [address] [place] [address], [id number], [place] tel:[phone] [facility] End stage renal disease Anne Sarabia. [address] [place] [address], [id number], [place]. tel:[phone] Referring Provider: Landy Rdz, [address] [place] [address]; [facility] [address] [place], [address]. tel:[phone] [facility], [address] [place] [address], [id number], tel:[phone] [facility] End stage renal disease Anne Sarabia. [address] [place] [address], [id number], . tel:[phone] Referring Provider: Norma Gregory SEduarda Coelho [address]: [address], [address]. tel:[phone] [facility], [address] [place] [address], [id number], tel:[phone] [facility] End stage renal disease Anne Sarabia. [address] [place] [address], [id number], . tel:[phone] Referring Provider: Norma Gregory SEduarda Coelho [address]: [address], [address]. tel:[phone] As per patient privacy policy some of the clinical information may not be visible. Family History Family Member Type Diagnosis Age At Onset No Information Payers Payer name Insurance type Covered constitution party ID Authorjoaquina tisarahi(s) Medicare [facility] [id number] Medicaid [facility] [id number] Social History Type Description Quantity Date Captured Comments Sex Female Smoking Status No Information Sexual Orientation Straight or heterosexual Gender Identity Female Chief Complaint And Reason For Visit No Information Reason For Referral Reason For Referral No Information Plan Of Treatment Date Type Action Status Future Order: Radiology Order Up per Body Flouroscopy ([id number]), Ordered on: Ordered Future Order: Radiology Order Up per Body Flouroscopy ([id number]), Ordered on: Ordered History Of Present Illness Encounter Date Complaint History Of Prese nt Illness No Information Functional Status Date Functional Assessmen t No Information Instructions Date Instruction Additional Infor mation No Information Assessments Type Assessment Date No Information Patient Care Teams Name Effective Dates (start - stop) Status Members No Information
--- OUTSIDE RECORDS SUMMARY | 2025-01-10 01:02 | XMS_ITS | Encounter Summary ---
Author Organization [facility] Address [address] [place] [address] Phone Care Team Providers Care Manager Sterile Processing Name Role Phone Anna Cobian MD Primary Care Provid er Anna Cobian MD Primary Care Provid er Sharon Bundy Primary Care Provider + Anna Cobian MD Primary Care Provid er Prakash Dash MD Unavailable [phone] Hilary Fontenot Unavailable Unavailable Srinivasa Herbert MD Unavailable Tina Winter [facility] [place] [place] Unavailable [phone] Leticia Thomas MD Unavailable Bernadette Billy Unavailable Encounter Details Date Type Department Care Team (Late st Contact Info) Description 11/28/2012 Orders Only [facility]INCON[facility] Provider, MD Royer [address] [place] [id number] Social History Tobacco Use Types Packs/Day Years Used Date Smoking Tobacco: Never Assessed Comments Unknown Sex and Gender Information Value Date Recorded Sex Assigned at Not on file Legal Sex Female 7:07 PM CUFF MAKER Gender Identity Not on file Sexual Orientation [...] COVID: Suspected 12/28/2020 12/28/2020 12/29/2020 3:54 AM CUFF MAKER Respiratory Infection (CHUY), contact + droplet Comment:Automatically added due to negative COVID-19 result. 12/29/2020 12/29/2020 01/12/2021 3:0 7 AM CUFF MAKER COVID: Suspected 11/20/2021 11/20/2021 11/20/2021 11:06 PM CUFF MAKER COVID19 11/20/2021 11/20/2021 12/04/2021 3:05 AM CUFF MAKER COVID: Recovered Comment:Added based on recent COVID infection. 12/04/2021 12/05/2021 04/03/2022 3:05 AM C DT COVID: Suspected 06/02/2022 06/02/2022 06/02/2022 1:51 PM CDT COVID: Suspected 10/01/2022 10/01/2022 10/01/2022 4:30 PM CUFF MAKER Influenza, adult 10/01/2022 10/01/2022 10/08/2022 3:05 AM CUFF MAKER COVID: Suspected 10/23/2023 10/23/2023 10/23/2023 3:49 PM CUFF MAKER RSV, droplet 10/23/2023 10/23/2023 10/30/2023 3:05 AM CUFF MAKER Rhino/Enterovirus 10/23/2023 10/23/2023 10/30/2023 3:05 AM CUFF MAKER COVID19 10/23/2023 10/23/2023 11/07/2023 3:05 AM CUFF MAKER COVID: Recovered Comment:Added based on recent COVID infection. 11/07/2023 11/08/2023 02/05/2024 3:05 AM C DT COVID: Suspected 11/21/2023 11/21/2023 11/21/2023 4:31 PM CUFF MAKER Abscess/Wound/Cellulitis 11/22/2023 11/22/2023 3:05 AM CUFF MAKER documented as of this encounter Care Teams Manager Sterile Processing Relationship Specialty Start Date End Date Anna Cobian MD PCP - General 01/31/17 04/21/17 Anna Cobian MD PCP - General 04/22/17 06/15/17 Sharon Bundy [address] [place] [address] [address] [place] [address] PCP - General 06/16/17 06/26/18 Anna Cobian MD PCP - General 06/27/18 [place] [id number] [address] [facility] [address] [place] [address] Consulting Physician Endocrinology 09/29/19 Hilary Fontenot Outpatient Customer Counter Representative 06/04/23 07/08/23 [place] [address] [address] [facility] [address] [place] [address] Consulting Physician Gastroenterology 06/06/23 Tina Winter, [facility] [place] [place] [address] [place] [address] Employment Recruiter Nephrology 08/10/23 Leticia Thomas MD [address] [place] [address] Consulting Physician Internal Medicine 10/28/23 Billy, [address] [place] [address] [facility] Outpatient Customer Counter Representative 11/25/23 12/06/23 documented as of this encounter
--- OUTSIDE RECORDS SUMMARY | 2025-01-10 01:02 | XMS_ITS | Encounter Summary ---
Author Organization [facility] Address [address] [place] [address] Phone Care Team Providers Care Netezza Architect Name Role Phone Anna Cobian MD Primary Care Provid er Prakash Dash MD Unavailable [phone] Hilary Fontenot Unavailable Unavailable Sriinvasa Herbert MD Unavailable Tina Winter [facility] Unavailable [phone] Leticia Thomas MD Unavailable Bernadette Billy Unavailable Encounter Details Date Type Department Care Team (Late st Contact Info) Description 06/30/2022 Treatment [facility] Nephrology [address] [place] [phone] Zeke Singer Jr., RN Social History Tobacco Use Types Packs/Day Years Used Date Smoking Tobacco: Heavy Smoker Cigarettes 0.5 24.2 Started: 2000 Smokeless Tobacco: Never Comments:she does [...] on file Legal Sex Female 7:07 PM WILDLIFE REHABILITATOR Gender Identity Not on file Sexual Orientation Not on file documented as of this encounter Plan of Treatment Not on file documented as of this encounter Visit Diagnoses Not on filedocumented in this encounter Additional Health Concerns Infection Onset Date Last Indicated Resolved Time COVID: Suspected 10/01/2022 10/01/2022 10/01/2022 4:30 PM WILDLIFE REHABILITATOR Influenza, adult 10/01/2022 10/01/2022 10/08/2022 3:05 AM WILDLIFE REHABILITATOR COVID: Suspected 10/23/2023 10/23/2023 10/23/2023 3:49 PM WILDLIFE REHABILITATOR RSV, droplet 10/23/2023 10/23/2023 10/30/2023 3:05 AM WILDLIFE REHABILITATOR Rhino/Enterovirus 10/23/2023 10/23/2023 10/30/2023 3:05 AM WILDLIFE REHABILITATOR COVID19 10/23/2023 10/23/2023 11/07/2023 3:05 AM WILDLIFE REHABILITATOR COVID: Recovered Comment:Added based on recent COVID infection. 11/07/2023 11/08/2023 02/05/2024 3:05 AM C DT COVID: Suspected 11/21/2023 11/21/2023 11/21/2023 4:31 PM WILDLIFE REHABILITATOR Abscess/Wound/Cellulitis 11/22/2023 11/22/2023 3:05 AM WILDLIFE REHABILITATOR documented as of this encounter Care Teams Netezza Architect Relationship Specialty Start Date End Date Anna Cobian MD PCP - General 06/27/18 [place] [address] [address] [facility] [address] [place] [address] Consulting Physician Endocrinology 09/29/19 Hilary Fontenot Outpatient Master Rigger 06/04/23 07/08/23 [place] [address] [address] [facility] [address], [place] [address] Consulting Physician Gastroenterology 06/06/23 Tina Winter, AIRWAY TRAFFIC CONTROLLER [address] [place] [address] Utility Bill Collection Clerk Nephrology 08/10/23 Leticia Thomas MD [address] [place] [address] Consulting Physician Internal Medicine 10/28/23 Bernadette Billy[address] [place] [address] [facility] Outpatient Master Rigger 11/25/23 12/06/23 documented as of this encounter
--- OUTSIDE RECORDS SUMMARY | 2025-01-10 01:02 | XMS_ITS | Encounter Summary ---
Author Organization [facility] Address [address] [place] [address] Phone Care Team Providers Care Admitting Clerk Name Role Phone Anna Cobian MD Primary Care Provid er Prakash Dash MD Unavailable [phone] Hilary Fontenot Unavailable Unavailable Srinivasa Herbert MD Unavailable Tina Winter [facility] Unavailable [phone] Leticia Thomas MD Unavailable Bernadette Billy Unavailable Encounter Details Date Type Department Care Team (Late st Contact Info) Description 05/19/2023 Documentation [facility] Nephrology [address] [place] [phone] Deniz Moctezuma, [facility] Social History Tobacco [...] on file Legal Sex Female 7:07 PM LIQUOR BRIDGE OPERATOR Gender Identity Not on file Sexual [...] Body Mass Index 30.78 01/14/2022 9:19 AM LIQUOR BRIDGE OPERATOR documented in this encounter Plan of Treatment Not on file documented as of this encounter Visit Diagnoses Not on filedocumented in this encounter Additional Health Concerns Infection Onset Date Last Indicated Resolved Time COVID: Suspected 10/23/2023 10/23/2023 10/23/2023 3:49 PM LIQUOR BRIDGE OPERATOR RSV, droplet 10/23/2023 10/23/2023 10/30/2023 3:05 AM LIQUOR BRIDGE OPERATOR Rhino/Enterovirus 10/23/2023 10/23/2023 10/30/2023 3:05 AM LIQUOR BRIDGE OPERATOR COVID19 10/23/2023 10/23/2023 11/07/2023 3:05 AM LIQUOR BRIDGE OPERATOR COVID: Recovered Comment:Added based on recent COVID infection. 11/07/2023 11/08/2023 02/05/2024 3:05 AM C DT COVID: Suspected 11/21/2023 11/21/2023 11/21/2023 4:31 PM LIQUOR BRIDGE OPERATOR Abscess/Wound/Cellulitis 11/22/2023 11/22/2023 3:05 AM LIQUOR BRIDGE OPERATOR documented as of this encounter Care Teams Admitting Clerk Relationship Specialty Start Date End Date Anna Cobian MD PCP - General 06/27/18 [place] [address] [address] Consulting Physician Endocrinology 09/29/19 Hilary Fontenot Outpatient Mine Foreman 06/04/23 07/08/23 [place] [address] [address] [address] Consulting Physician Gastroenterology 06/06/23 Tina Winter, [facility] [address] [place] [address] Engineer Sergeant Nephrology 08/10/23 Leticia Thomas MD [address] [place] [address] Consulting Physician Internal Medicine 10/28/23 Bernadette Billy [address] [address] [place] [address] [facility] Outpatient Mine Foreman 11/25/23 12/06/23 documented as of this encounter
--- OUTSIDE RECORDS SUMMARY | 2025-01-10 01:02 | XMS_ITS | Referral Summary ---
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[facility]) 07/21/2023 Acute encephalopathy 07/19/2023 High anion gap metabolic acidosis 07/19/2023 Hyperbilirubinemia 07/19/2023 Hyperphosphatemia 07/19/2023 Hypoalbuminemia 07/19/2023 Hyponatremia 07/19/2023 Thrombocytopenia, secondary 07/19/2023 Volume overload 07/19/2023 Acute respiratory failure with hypoxia ([facility]) 07/18/2023 Altered mental status 07/18/2023 SOB (shortness of breath) on exertion 07/18/2023 Uremic encephalopathy 07/18/2023 Transaminitis 07/18/2023 Fluid overload, unspecified 06/16/2023 Recent melena 06/03/2023 Anemia requiring transfusions 06/03/2023 Secondary hyperparathyroidism of renal origin Need for vaccination 06/02/2023 Iron deficiency anemia, unspecified 06/02/2023 ESRD (end stage renal disease) ([facility]) 019 Overview (07/24/2023): Added automatically from request for surgery [id number] Hypertensive urgency 09/25/2019 Assessment & Plan (09/25/2019 3:43 PM PASSENGER AGENT): 222/116 upon admit. S/p IV hydralazine with improvement to 173/97. Resume home enalapril bid. Prn IV enalapril while NPO. Elevated brain natriuretic peptide (BNP) level 1 11/25/2018 Assessment & Plan (09/25/2019 3:44 PM PASSENGER AGENT): No history of CHF. BNP 1877 on admit. Initial troponin 30. Will obtain echo and evaluate. Continue serial troponin. Telemetry monitoring. Anemia 09/25/2019 Assessment & Plan (09/25/2019 3:45 PM PASSENGER AGENT): H&H is at her baseline. Will follow. Leukocytosis 09/25/2019 Assessment & Plan (09/25/2019 3:50 PM PASSENGER AGENT): Possibly reactive. Check UA and CXR. Influenza A/B negative. Labs in am. Diabetic ketoacidosis withou t coma associated with type 2 diabetes mellitus ([facility]) 08/10/2019 Assessment & Plan (09/25/2019 3:51 PM PASSENGER AGENT): Currently on insulin stabilizer. IVF. NPO. Endocrinology has been consulted for which we appreciate their evaluation and recommendations. A1c 10.0 in 07/2019. Intractable vomiting 08/10/2019 SHELLI-inhibitor cough 08/10/2019 Hyperosmolar non-ketotic sta te in patient with type 2 diabetes mellitus ([facility]) 06/08/2019 Cholelithiasis 06/08/2019 Gastroparesis 04/15/2019 Neuropathy 04/14/2019 GERD (gastroesophageal reflux disease) 9 Assessment & Plan (09/25/2019 3:45 PM PASSENGER AGENT): PPI. Diabetes mellitus 04/14/2019 Abdominal pain, generalized 04/13/2019 Overview (04/14/2019): Added automatically from request for surgery [id number] Intractable cyclical vomiting with nausea 2018 Overview (04/14/2019): Added automatically from request for surgery [id number] Essential hypertension 02/02/2019 Renal osteodystrophy 01/28/2019 Diarrhea 06/28/2018 Nausea and vomiting 06/28/2018 Assessment & Plan (09/25/2019 3:40 PM PASSENGER AGENT): Suspect gastroparesis exacerbation. Prn Reglan IV. IVF. NPO. Prn analgesics. Hyperkalemia 01/09/2016 Proteinuria 01/09/2016 Esophageal candidiasis ([facility]) Right upper quadrant abdominal pain Hyperglycemia Resolved Problems Problem Noted Date Diagnosed Date Resolved Date Anemia of chronic disease 07/19/2023 Anemia of chronic renal failure 06/02/2023 07/24/2023 Stage 5 chronic kidney disea se not on chronic dialysis ([facility]) 05/26/2019 07/24/2023 Overview (05/26/2019): Added automatically from request for surgery [id number] Assessment & Plan (09/25/2019 3:42 PM PASSENGER AGENT): S/p AV fistula placement 06/2019. Nephrology has been consulted for which we appreciate their evaluation and recommendations. Plan for HD in near future. Stage 4 chronic kidney disease ([facility]) 01/28/2019 07/24/2023 Immunizations Immunization Administration Dates Next [...] 0.5 24.2 Started: 2000 Smokeless Tobacco: Never Tobacco Cessation:Ready to Q uit: Not Asked; Counseling Given: Not Answered Comments:she does smoke marajuana Alcohol Use Standard Drinks/Week Comments No 0 (1 standard drink = 0.6 oz pur e alcohol) [facility] Utilities Answer Date Recorded In the past 12 months has I Do Now I Don't, gas, oil, or water [employer] threatened to shut off services in your [...] often do you attend chur ch or jain services? More than 4 times per year 11/25/2023 Do you belong to any clubs o r organizations such as lutheran groups, unions, fraternal or athletic groups, or [...] Date Recorded PHQ-2 Total Score 0 08/20/2023 [facility] - Occupational Stress [...] place to sleep or slept in a long term (including now)? No 11/25/2023 Personal Safety Answer Date Recorded Have you ever been in or are you currently in a harmful physical or emotional relationship or is someone making you feel afraid or unsafe? Denies 12/10/2023 Comments No Sex and Gender Information Value Date Recorded Sex Assigned at Not on file Legal Sex Female 7:07 PM PASSENGER AGENT Gender Identity Not on file Sexual Orientation Not on file Last Filed Vital Signs Vital Sign Reading Time Taken Comments Blood Pressure 211/110 12/21/2023 4:26 PM PASSENGER AGENT Pulse 75 12/21/2023 4:26 PM PASSENGER AGENT Temperature 36.7 C (98 F) 12/10/2023 9:15 AM PASSENGER AGENT Respiratory Rate 16 12/10/2023 9:15 AM PASSENGER AGENT Oxygen Saturation 100% 12/10/2023 9:15 AM PASSENGER AGENT Inhaled Oxygen Concentration - - Weight 78.5 kg (173 lb) 12/10/2023 9:15 AM PASSENGER AGENT Height 167.6 cm (5' 6 ) 12/10/2023 9:15 AM PASSENGER AGENT Body Mass Index 27.92 12/10/2023 9:15 AM PASSENGER AGENT Plan of Treatment Not on file Procedures Procedure Name Priority Date/Time Associated Diagnosis Comments HEPATITIS C ANTIBODY Routine 12/21/2023 12:00 AM PASSENGER AGENT ESRD (end stage renal disease) (CMS/HCC) (HCC) EGFR Routine 11/26/2023 2:50 AM PASSENGER AGENT HEMOGLOBIN A1C 11/18/2023 12:00 AM PASSENGER AGENT LIPID PANEL STAT 08/19/2023 1:29 AM CDT from Last 3 Months or Most Recently Relevant to Health Maintenance Results * Hepatitis C antibody Serum (12/21/2023 12:00 AM PASSENGER AGENT) Pathologist [facility] Hep C Ab Nonreactive Nonreactive [facility] Comment:No HCV antibody dete cted.The above test result was obtained using Siemens Geswindaur XPchemiluminescent method. Results obtained with different assay methodsor kits cannot be used interchangeably. HCV s/co ratio 0.07 0.00 - 0.79 [facility] Comment:s/co ratio Interpret ation Supplemental testing<0.80 Nonreactive No further testing required.0.80-0.99 Equivocal HCV RNA Quantitative Real-Time PCRis recommended.1.00->11.00 Reactive HCV RNA Quantitative Real-Time PCRis recommended to distinguish active from resolvedcases. Serum 12/21/2023 12/23/2023 Narrative [facility] - 12/23/2023 2:28 PM PASSENGER AGENT Unless otherwise specified, test(s) performed at:[facility], [address] [place] [address] [id number] DIRECTOR: Jordan Woodard M.D. Landy Rdz MD LAB MICROBIOLOGY - G ENERAL ORDERABLES Final Result [facility] * eGFR (11/26/2023 2:50 AM PASSENGER AGENT) Pathologist [facility] eGFR 16 mL/min/1. 73 m2 DEEPAK DEWITT [...] last reviewed 2021. Blood 11/26/2023 2:50 AM PASSENGER AGENT 11/26/2023 3:38 AM PASSENGER AGENT Landy Rdz MD LAB BLOOD ORDERABLES Final Result Performing Organization Address City/[facility]/ZIP Co de Phone Number DEEPAK [id number] [facility] Department [place] [address] * (ABNORMAL) Hemoglobin A1c (11/18/2023 12:00 AM PASSENGER AGENT) Hemoglobin A1C 7.9(H) 4.8 - 5.9 % [facility] Blood 11/18/2023 11/19/2023 Narrative [facility] - 11/20/2023 12:11 PM PASSENGER AGENT Unless otherwise specified, test(s) performed at:[facility], [address] [place] [address] [id number] DIRECTOR: Jordan Woodard M.D. us [facility] Unknown LAB BLOOD ORDERABLES Final Res ult [facility] * Lipid panel (08/19/2023 1:29 AM CDT) [...] revised on 2018. Triglycerides 44 <=149 mg/dL [facility] Comment: Interpretive Data Ages < or = [...] revised on 2018. HDL 53 >=40 mg/dL [facility] Comment: Interpretive Data Ages < or = [...] on 2018. LDL, calculated 31 <=129 mg/dL [facility] Comment: Interpretive Data Ages < or = [...] revised on 2018. Non-HDL Cholesterol 40 mg/dL [facility] Comment: Interpretive Data Ages < or = [...] last revised on 2018. Chol/HDL ratio 2 [facility] Blood 08/19/2023 1:29 AM CDT 08/19/2023 1:53 AM CDT us Katherine Galdamez MD LAB BLOOD ORDERABLES Final Re sult [facility] Department [place] [address] from Last 3 Months or Most Recently Relevant to Health Maintenance Insurance [place] [employer] MEDIC[employer] COMMUNITY PLAN [facility] Member Subscriber Plan / Payer (Ef fective 2019-Present) Name:Celeste Waters Deborah Relation to Subscriber:Self Name:Celeste Waters Deborah Payer ID:[id number] Group ID:Not on file Type:MEDICAID [place] Address: [address] MEDICARE COMMUNITY PLAN Member Subscriber Plan / Payer (Ef fective 2023-Present) Name:Celeste Waters Deborah Relation to Subscriber:Self Name:Celeste Waters Payer ID:[id number] (NAIC) Group ID:Not on file Type:[facility] MED[facility] Address: [place] [id number] [facility] MEDICARE COMMUNITY PLAN Advance Directives For more information, please contact: [phone] * Full Code (Latest Code Status on [...] 10:56 PM 06/06/2023 4:40 PM Care Teams Leather Finisher Relationship Specialty Start Date End Date Anna Cobian MD PCP - General 06/27/18 [place] [id number] [place] [address] Consulting Physician Endocrinology 09/29/19 [place] [address] [place] [address] Consulting Physician Gastroenterology 06/06/23 Tina Winter, [facility] [address] [place] [address] School Manager Nephrology 08/10/23 Leticia Thomas MD [address] [address] Consulting Physician Internal Medicine 10/28/23
--- OUTSIDE RECORDS SUMMARY | 2025-01-10 01:02 | XMS_ITS | Continuity of Care Document ---
Author Organization [facility] Address [address] [place] [address] Phone Care Team Providers Care Cement Crusher Operator Name Role Phone Sharon Bundy MD Unavailable [...] Ultra Test Strips patient test 1 by [facility].(Non-Drug; Combo Route) route 3 times every day [...] Diagnoses Date Provider Providers Copied on Encounter [facility], [address], [place], [place], [id number] , [place] tel: [phone] [facility] No Information Apr- 7 Yemi Herrera. [address], [address], [place], [place], [address]. tel:[phone] [facility], [address], [place], [place], [address] , [place] tel: [phone] [facility] Diabetes with ophthalmic manifestations, type II or unspecified type, uncontrolled 0 3 Guillermo Regalado. [address], [place], [place], [address], [place]. tel:[phone] [facility], [address], [place], [place], [address] , [place] tel: [phone] [facility] Diabetes with ophthalmic manifestations, type II or unspecified type, uncontrolled 3 Guillermo Regalado. [address], [facility] [address], [place], [place], [address], [place]. tel:[phone] [facility], [address], [place], [place], [address] , [place] tel: [phone] [facility] Diabetes with ophthalmic manifestations, type II or unspecified type, uncontrolled 3 Guillermo Regalado. [address], [facility] [address], [place], [place], [address], [place]. tel:[phone] [facility], [address], [place], [place], [address] , [place] tel: [phone] [facility] Diabetes with ophthalmic manifestations, type II or unspecified type, uncontrolled 3 Guillermo Regalado. [address], [facility] [address], [place], [place], [address], [place]. tel:[phone] [facility], [address], [place], [place], [address] , [place] tel: [phone] [facility] Diabetes with ophthalmic manifestations, type II or unspecified type, uncontrolled 3 Guillermo Regalado. [address], [place], [place], [address], [place]. tel:[phone] [facility], [address], [place], [place], [address] , tel: [phone] [facility] DM (diabetes mellitus) type II uncontrolled with eBackground diabetic retinopathyUnspecifi ed essential hypertensionNEED FOR PROPHYLACTIC VACCINATION WITH COMBINED [id number] ERTUSSIS (DTP) (DTAP) VACCINE 3 Guillermo Reglaado. [address], [facility] [address], [place], [place], [address], [place]. tel:[phone] Referring Provider: Sharon Arias, [address] [place] [address] [address], [place], [address] . tel:[phone] [facility], [address], [place], [place], [address] , [place] tel: [phone] [facility] Hypertensive emergencyDiabetes with ophthalmic manifestations, type II or unspecified type, uncontrolledObesity, unspecifiedNon compliance w medication regimenRetinal hemorrhage 3 Yemi Herrera. [address], [facility] [address], [place], [place], [address]. tel:[phone] Referring Provider: Sharon Arias, [address] [place] [address] [address], [place], [address] . tel:[phone] [facility], [address], [place], [place], [address] , tel: [phone] [facility] Diabetes with ophthalmic manifestations, type II or unspecified type, uncontrolledBackgrou nd diabetic retinopathyObesity, unspecified 2 Yemi Herrera. [address], [facility] [address], [place], [place], [address]. tel:[phone] [facility], [address], [place], [place], [address] , [place] tel: [phone] [facility] No Information 2 Lebanongibran Herrera. [facility], [place] [address], [place], [place], [address]. tel:[phone] [facility], [address], [place], [place], [address] , tel: [phone] [facility] Diabetes with ophthalmic manifestations, type II or unspecified type, uncontrolledObesity, unspecifiedRetinopat hy due to secondary diabetesBackground diabetic retinopathyObesity, unspecifiedRoutine general medical examination at a health care facilityNoncomplian e with diet and medication regimen 2 Lebanongibran Herrera. [address], [facility] [address], [place], [place], [address]. tel:[phone] Referring Provider: Sharon Arias, [address], [place], [address] . tel:[phone] Family History Family Member Type Diagnosis Age At Onset Mother Problem (finding) diabetes melli tus in first degree relative Brother Problem (finding) diabetes melli tus in first degree relative Mother Problem (finding) hypertension Sister Problem (finding) diabetes melli tus in first degree relative Father Problem (finding) diabetes melli tus in first degree relative Immunizations Vaccine Date Status Comments Tdap administered Source: [facility] unization Record Payers Payer name Insurance type Covered libertarian ID Authoriza tion(s) No Information Social History [...]
--- OUTSIDE RECORDS SUMMARY | 2025-01-10 01:02 | XMS_ITS | Clinical Summary ---
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[facility]) 07/21/2023 Acute encephalopathy 07/19/2023 High anion gap metabolic acidosis 07/19/2023 Hyperbilirubinemia 07/19/2023 Hyperphosphatemia 07/19/2023 Hypoalbuminemia 07/19/2023 Hyponatremia 07/19/2023 Thrombocytopenia, secondary 07/19/2023 Volume overload 07/19/2023 Acute respiratory failure with hypoxia ([facility]) 07/18/2023 Altered mental status 07/18/2023 SOB (shortness of breath) on exertion 07/18/2023 Uremic encephalopathy 07/18/2023 Transaminitis 07/18/2023 Fluid overload, unspecified 06/16/2023 Recent melena 06/03/2023 Anemia requiring transfusions 06/03/2023 Secondary hyperparathyroidism of renal origin Need for vaccination 06/02/2023 Iron deficiency anemia, unspecified 06/02/2023 ESRD (end stage renal disease) ([facility]) 019 Overview (07/24/2023): Added automatically from request for surgery [id number] Hypertensive urgency 09/25/2019 Assessment & Plan (09/25/2019 3:43 PM HR SHARED SERVICES CONSULTANT): 222/116 upon admit. S/p IV hydralazine with improvement to 173/97. Resume home enalapril bid. Prn IV enalapril while NPO. Elevated brain natriuretic peptide (BNP) level 1 11/25/2018 Assessment & Plan (09/25/2019 3:44 PM HR SHARED SERVICES CONSULTANT): No history of CHF. BNP 1877 on admit. Initial troponin 30. Will obtain echo and evaluate. Continue serial troponin. Telemetry monitoring. Anemia 09/25/2019 Assessment & Plan (09/25/2019 3:45 PM HR SHARED SERVICES CONSULTANT): H&H is at her baseline. Will follow. Leukocytosis 09/25/2019 Assessment & Plan (09/25/2019 3:50 PM HR SHARED SERVICES CONSULTANT): Possibly reactive. Check UA and CXR. Influenza A/B negative. Labs in am. Diabetic ketoacidosis withou t coma associated with type 2 diabetes mellitus ([facility]) 08/10/2019 Assessment & Plan (09/25/2019 3:51 PM HR SHARED SERVICES CONSULTANT): Currently on insulin stabilizer. IVF. NPO. Endocrinology has been consulted for which we appreciate their evaluation and recommendations. A1c 10.0 in 07/2019. Intractable vomiting 08/10/2019 SHELLI-inhibitor cough 08/10/2019 Hyperosmolar non-ketotic sta te in patient with type 2 diabetes mellitus ([facility]) 06/08/2019 Cholelithiasis 06/08/2019 Gastroparesis 04/15/2019 Neuropathy 04/14/2019 GERD (gastroesophageal reflux disease) 9 Assessment & Plan (09/25/2019 3:45 PM HR SHARED SERVICES CONSULTANT): PPI. Diabetes mellitus 04/14/2019 Abdominal pain, generalized 04/13/2019 Overview (04/14/2019): Added automatically from request for surgery [id number] Intractable cyclical vomiting with nausea 2018 Overview (04/14/2019): Added automatically from request for surgery [id number] Essential hypertension 02/02/2019 Renal osteodystrophy 01/28/2019 Diarrhea 06/28/2018 Nausea and vomiting 06/28/2018 Assessment & Plan (09/25/2019 3:40 PM HR SHARED SERVICES CONSULTANT): Suspect gastroparesis exacerbation. Prn Reglan IV. IVF. NPO. Prn analgesics. Hyperkalemia 01/09/2016 Proteinuria 01/09/2016 Esophageal candidiasis ([facility]) Right upper quadrant abdominal pain Hyperglycemia Resolved Problems Problem Noted Date Diagnosed Date Resolved Date Anemia of chronic disease 07/19/2023 Anemia of chronic renal failure 06/02/2023 07/24/2023 Stage 5 chronic kidney disea se not on chronic dialysis ([facility]) 05/26/2019 07/24/2023 Overview (05/26/2019): Added automatically from request for surgery [id number] Assessment & Plan (09/25/2019 3:42 PM HR SHARED SERVICES CONSULTANT): S/p AV fistula placement 06/2019. Nephrology has been consulted for which we appreciate their evaluation and recommendations. Plan for HD in near future. Stage 4 chronic kidney disease ([facility]) 01/28/2019 07/24/2023 Immunizations Immunization Administration Dates [...] History Date Comments Kidney disease Diabetes mellitus ([facility]) type 2 Hypertension Neuropathy ([facility]) GERD (gastroesophageal reflux disease) PONV (postoperative nausea and vomiting) PUD (peptic ulcer disease) Acute respiratory failure with hypoxia ([facility]) ([facility]) 07/18/2023 Family History Medical History Relation [...] drink = 0.6 oz pur e alcohol) [facility] Utilities Answer Date Recorded In the [...] often do you attend chur ch or samaritan services? More than 4 times per year 11/25/2023 Do you belong to any clubs o r organizations such as restorationism groups, unions, fraternal or athletic groups, or [...] Date Recorded PHQ-2 Total Score 0 08/20/2023 [facility] of Occupat ional Health - Occupational Stress [...] place to sleep or slept in a mcfp (including now)? No 11/25/2023 Personal Safety Answer Date Recorded Have you ever been in or are you currently in a harmful physical or emotional relationship or is someone making you feel afraid or unsafe? Denies 12/10/2023 Comments No Sex and Gender Information Value Date Recorded Sex Assigned at Not on file Legal Sex Female 7:07 PM HR SHARED SERVICES CONSULTANT Gender Identity Not on file Sexual Orientation Not on file Obstetrics History Last Filed Vital Signs Vital Sign Reading Time Taken Comments Blood Pressure 211/110 12/21/2023 4:26 PM HR SHARED SERVICES CONSULTANT Pulse 75 12/21/2023 4:26 PM HR SHARED SERVICES CONSULTANT Temperature 36.7 C (98 F) 12/10/2023 9:15 AM HR SHARED SERVICES CONSULTANT Respiratory Rate 16 12/10/2023 9:15 AM HR SHARED SERVICES CONSULTANT Oxygen Saturation 100% 12/10/2023 9:15 AM HR SHARED SERVICES CONSULTANT Inhaled Oxygen Concentration - - Weight 78.5 kg (173 lb) 12/10/2023 9:15 AM HR SHARED SERVICES CONSULTANT Height 167.6 cm (5' 6 ) 12/10/2023 9:15 AM HR SHARED SERVICES CONSULTANT Body Mass Index 27.92 12/10/2023 9:15 AM HR SHARED SERVICES CONSULTANT Plan of Treatment Health Maintenance Due Date [...] HEPATITIS C ANTIBODY Routine 12/21/2023 12:00 AM HR SHARED SERVICES CONSULTANT ESRD (end stage renal disease) (CMS/HCC) (HCC) EGFR Routine 11/26/2023 2:50 AM HR SHARED SERVICES CONSULTANT HEMOGLOBIN A1C 11/18/2023 12:00 AM HR SHARED SERVICES CONSULTANT LIPID PANEL STAT 08/19/2023 1:29 AM CDT from Last 3 Months or Most Recently Relevant to Health Maintenance Results * Hepatitis C antibody Serum (12/21/2023 12:00 AM HR SHARED SERVICES CONSULTANT) Hep C Ab Nonreactive Nonreactive SPECTR A [...] active from resolvedcases. Serum 12/21/2023 12/23/2023 [facility] - 12/23/2023 2:28 PM HR SHARED SERVICES CONSULTANT Unless otherwise specified, test(s) performed at:[facility], [address] [place] [address] [id number] DIRECTOR: Jordan Woodard M.D. Landy Rdz MD LAB MICROBIOLOGY - G ENERAL ORDERABLES Final Result [facility] * eGFR (11/26/2023 2:50 AM HR SHARED SERVICES CONSULTANT) eGFR 16 mL/min/1. 73 m2 [facility] [...] last reviewed 2021. Blood 11/26/2023 2:50 AM HR SHARED SERVICES CONSULTANT 11/26/2023 3:38 AM HR SHARED SERVICES CONSULTANT us Landy Rdz MD LAB BLOOD ORDERABLES Final Result Performing Organization Address City/[facility]/ZIP Co de Phone Number [facility] [address] Department [place] [address] * (ABNORMAL) Hemoglobin A1c (11/18/2023 12:00 AM HR SHARED SERVICES CONSULTANT) Hemoglobin A1C 7.9(H) 4.8 - 5.9 % [facility] Blood 11/18/2023 11/19/2023 Narrative [facility] - 11/20/2023 12:11 PM HR SHARED SERVICES CONSULTANT Unless otherwise specified, test(s) performed at:[facility], [address] [place] [address] [id number] DIRECTOR: Jordan Woodard M.D. us Notinfile Unknown LAB BLOOD ORDERABLES Final Res ult [facility] * Lipid panel (08/19/2023 1:29 AM CDT) [...] on 2018. Triglycerides 44 <=149 mg/dL [facility] Comment: Interpretive Data Ages < or [...] on 2018. HDL 53 >=40 mg/dL [facility] Comment: Interpretive Data Ages < or [...] 2018. LDL, calculated 31 <=129 mg/dL [facility] Comment: Interpretive Data Ages < or [...] on 2018. Non-HDL Cholesterol 40 mg/dL [facility] Comment: Interpretive Data Ages < or [...] last revised on 2018. Chol/HDL ratio 2 [facility] Blood 08/19/2023 1:29 AM CDT 08/19/2023 1:53 AM CDT us Katherine Galdamez MD LAB BLOOD ORDERABLES Final Re sult [facility] Department [place] [address] from Last 3 Months or Most Recently Relevant to Health Maintenance Insurance [employer] [employer] [address] [place] [address] MEDICARE COMMUNITY PLAN [facility] Member Subscriber Plan / Payer (Ef fective 2019-Present) Name:Celeste Waters Deborah Relation to Subscriber:Self Name:Celeste Waters Deborah Payer ID:[id number] Group ID:Not on file Type:MEDICAID [place] Address: [address] MEDICARE COMMUNITY PLAN [facility] Member Subscriber Plan / Payer (Ef fective 2019-Present) Name:Celeste Waters Deborah Relation to Subscriber:Self Name:Celeste Waters Deborah Payer ID:[id number] Group ID:Not on file Type:MEDICAID [place] Address: [address] MEDICARE COMMUNITY PLAN Advance Directives For more information, please contact: [phone] * Full Code (Latest Code Status on [...] 10:56 PM 06/06/2023 4:40 PM Care Teams Dumper Bailer Operator Relationship Specialty Start Date End Date Anna Cobian MD PCP - General 06/27/18 [place] [address] [facility] [address] [place] [address] Consulting Physician Endocrinology 09/29/19 [place] [address] [facility] [address] [place] [address] Consulting Physician Gastroenterology 06/06/23 Tina Winter, [facility] [address] [address] Mud Car Worker Nephrology 08/10/23 Leticia Thomas MD [address] [address] Consulting Physician Internal Medicine 10/28/23
--- OUTSIDE RECORDS SUMMARY | 2025-01-10 01:02 | XMS_ITS | Clinical Summary ---
Author Organization [facility] Address [address] [place] [address] Care Team Providers Care Transport Aircrewman Name Role Phone Anna Cobian MD Primary Care Provid er Source Comments [facility],non-owned Affiliates and Associated Physician Practices is amultiple site organization consisting of ambulatory clinics and hospital sitesin [place], [place], [place] and [place]. This disclosure is being madepursuant to the Care Everywhere program and may not contain all information available regarding this patient. Last updated 18.[facility] Allergies No known active allergies Medications * [...] jacquelin Non-reac tive 07/19/2023 9:52 AM CDT [facility] Hepatitis B Virus Surface Antigen Non-react jacquelin Non-reac tive 07/19/2023 9:52 AM CDT [facility] Hepatitis B Core Virus Antibody IgM Non-react jacquelin Non-reac tive 07/19/2023 9:52 AM CDT [facility] Hepatitis C Antibody Non-react jacquelin Non-reac tive 07/19/2023 9:52 AM T [facility] Comment:Hepatitis C Antibody screen indicates no serologic [...] CDT 07/19/2023 4:04 AM CDT Ian Olvera GLUING MACHINE OPERATOR ELECTRONIC-ENTRY LEVEL ACCOUNTING CLERK LAB - CHEMISTR Y ORDERABLES Performing Organization Address City/State/[facility] Co de Phone Number [facility] [address] [place] [address], [place] [phone] from Last 3 Months or Most Recently Relevant to Health Maintenance Advance Directives * Full Code (Latest Code Status on File) Date Activated Date Inactivated Comments 08/06/2023 9:12 AM 08/08/2023 5:01 PM * Full Code Date Activated Date Inactivated Comments 07/19/2023 1:08 AM 07/26/2023 5:09 PM Care Teams Transport Aircrewman Relationship Specialty [place] [address] [place] [address] PCP - General Internal Medicine 12/04/17
--- OUTSIDE RECORDS SUMMARY | 2025-01-10 01:02 | XMS_ITS | Encounter Summary ---
Author Organization [facility] Address [address] [place] [address] Phone Care Team Providers Care Brass Wind Instruments Tube Bender Name Role Phone Anna Cobian MD Primary Care Provid er Prakash Dash MD Unavailable [phone] Hilary Fontenot Unavailable Unavailable Srinivasa Herbert MD Unavailable Tina Winter [facility] Unavailable [phone] Leticia Thomas MD Unavailable Bernadette Billy Unavailable Encounter Details Date Type Department Care Team (Late st Contact Info) Description 02/28/2020 Orders Only [facility] Nephrology [address] [place] [phone] Zeke Singer Jr., RN Cough (Primary Dx) Social History Tobacco Use Types Packs/Day Years Used Date Smoking Tobacco: Light Smoker Cigarettes 0.2 24.2 Started: 2000 Smokeless Tobacco: Never Comments:she does smoke david kailash Alcohol Use Standard Drinks/Week Comments No 0 (1 standard drink = 0.6 oz pur e alcohol) Comments No Sex and Gender Information Value Date Recorded Sex Assigned at Not on file Legal Sex Female 7:07 PM PAINT DIPPER Gender Identity Not on file Sexual Orientation Not on file documented as of this encounter Progress Notes * Zeke Singer Jr., RN - 02/28/2020 10:55 AM CDT covid documented in this encounter Plan of Treatment Not on file documented as of this encounter Results * COVID-19 Coronavirus RNA Nasopharyngeal (02/28/2020 10:58 AM CDT) [facility] COVID-19 RNA Not Detected [facility] Comment: Interpretive Data Testing performed at [facility] Infectious [facility]. The 2019-Novel Coronavirus [...] CDT 02/28/2020 4:05 PM [address] [facility] - 02/29/2020 2:15 AM CDT Does the patient meet the testing requirements described in the process instructions above?->Yes Saeid Alcala MD LAB MICROBIOLOGY - GENERAL ORDERABLES Final Result [facility] Department [place] [address] documented in this encounter Visit Diagnoses Diagnosis Cough- Primary Cough documented in this encounter Additional Health Concerns Infection Onset Date Last Indicated Resolved Time COVID: Suspected 02/28/2020 02/28/2020 03/13/2020 3:05 AM CDT COVID: Suspected 12/28/2020 12/28/2020 12/29/2020 3:54 AM PAINT DIPPER Respiratory Infection (CHUY), contact + droplet Comment:Automatically added due to negative COVID-19 result. 12/29/2020 12/29/2020 01/12/2021 3:0 7 AM PAINT DIPPER COVID: Suspected 11/20/2021 11/20/2021 11/20/2021 11:06 PM PAINT DIPPER COVID19 11/20/2021 11/20/2021 12/04/2021 3:05 AM PAINT DIPPER COVID: Recovered Comment:Added based on recent COVID infection. 12/04/2021 12/05/2021 04/03/2022 3:05 AM C DT COVID: Suspected 06/02/2022 06/02/2022 06/02/2022 1:51 PM CDT COVID: Suspected 10/01/2022 10/01/2022 10/01/2022 4:30 PM PAINT DIPPER Influenza, adult 10/01/2022 10/01/2022 10/08/2022 3:05 AM PAINT DIPPER COVID: Suspected 10/23/2023 10/23/2023 10/23/2023 3:49 PM PAINT DIPPER RSV, droplet 10/23/2023 10/23/2023 10/30/2023 3:05 AM PAINT DIPPER Rhino/Enterovirus 10/23/2023 10/23/2023 10/30/2023 3:05 AM PAINT DIPPER COVID19 10/23/2023 10/23/2023 11/07/2023 3:05 AM PAINT DIPPER COVID: Recovered Comment:Added based on recent COVID infection. 11/07/2023 11/08/2023 02/05/2024 3:05 AM C DT COVID: Suspected 11/21/2023 11/21/2023 11/21/2023 4:31 PM PAINT DIPPER Abscess/Wound/Cellulitis 11/22/2023 11/22/2023 3:05 AM PAINT DIPPER documented as of this encounter Care Teams Brass Wind Instruments Tube Bender Relationship Specialty Start Date End Date Anna Cobian MD PCP - General 06/27/18 [place] [address] [address] Consulting Physician Endocrinology 09/29/19 Hilary Fontenot [facility] Die Trimmer 06/04/23 07/08/23 [place] [address] [place] [address] Consulting Physician Gastroenterology 06/06/23 Tina Winter, [place] [facility] [address] [place] [address] Cd Mixer Nephrology 08/10/23 Leticia Thomas MD [address] [place] [address] Consulting Physician Internal Medicine 10/28/23 Bernadette Billy [address] [place] [address] [facility] Outpatient Die Trimmer 11/25/23 12/06/23 documented as of this encounter
--- OUTSIDE RECORDS SUMMARY | 2025-01-10 01:02 | XMS_ITS ---
Author Organization [facility] Address [address] [place] [id number] Care Team Providers Care Greens Tier Name Role Phone Anna Cobian MD Primary Care Provid er Prakash Dash MD Unavailable [phone] Srinivasa Herbert MD Unavailable Tina Winter [facility] Unavailable [phone] Leticia Thomas MD Unavailable Dialysis Access Sites Type Status Location Placement Date Removal Da te AV fistula Active Left Upper Arm - Anterior 06/20/2019 Procedures Procedure Name Priority Date/Time Associated Diagnosis Comments HEPATITIS C ANTIBODY Routine 12/21/2023 12:00 AM SHIRT SEWER ESRD (end stage renal disease) (CMS/HCC) (HCC) EGFR Routine 11/26/2023 2:50 AM SHIRT SEWER HEMOGLOBIN A1C 11/18/2023 12:00 AM SHIRT SEWER LIPID PANEL STAT 08/19/2023 1:29 AM CDT [...] pen needle, diabetic (Lite Touch Insulin Pen [place]) 31 gauge x 3/16 needleIndication s:Diabetes Mellitus [...] heart failure 07/21/2023 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[facility]/HCC) 07/21/2023 Acute encephalopathy 07/19/2023 High anion gap metabolic acidosis 07/19/2023 Hyperbilirubinemia 07/19/2023 Hyperphosphatemia 07/19/2023 Hypoalbuminemia 07/19/2023 Hyponatremia 07/19/2023 Thrombocytopenia, secondary 07/19/2023 Volume overload 07/19/2023 Acute respiratory failure with hypoxia ([facility]/HCC) 07/18/2023 Altered mental status 07/18/2023 SOB (shortness of breath) on exertion 07/18/2023 Uremic encephalopathy 07/18/2023 Transaminitis 07/18/2023 Fluid overload, unspecified 06/16/2023 Recent melena 06/03/2023 Anemia requiring transfusions 06/03/2023 Secondary hyperparathyroidism of renal origin Need for vaccination 06/02/2023 Iron deficiency anemia, unspecified 06/02/2023 ESRD (end stage renal disease) ([facility]) 019 Overview (07/24/2023): Added automatically from request for surgery [id number] Hypertensive urgency 09/25/2019 Assessment & Plan (09/25/2019 3:43 PM SHIRT SEWER): 222/116 upon admit. S/p IV hydralazine with improvement to 173/97. Resume home enalapril bid. Prn IV enalapril while NPO. Elevated brain natriuretic peptide (BNP) level 1 11/25/2018 Assessment & Plan (09/25/2019 3:44 PM SHIRT SEWER): No history of CHF. BNP 1877 on admit. Initial troponin 30. Will obtain echo and evaluate. Continue serial troponin. Telemetry monitoring. Anemia 09/25/2019 Assessment & Plan (09/25/2019 3:45 PM SHIRT SEWER): H&H is at her baseline. Will follow. Leukocytosis 09/25/2019 Assessment & Plan (09/25/2019 3:50 PM SHIRT SEWER): Possibly reactive. Check UA and CXR. Influenza A/B negative. Labs in am. Diabetic ketoacidosis withou t coma associated with type 2 diabetes mellitus ([facility]) 08/10/2019 Assessment & Plan (09/25/2019 3:51 PM SHIRT SEWER): Currently on insulin stabilizer. IVF. NPO. Endocrinology has been consulted for which we appreciate their evaluation and recommendations. A1c 10.0 in 07/2019. Intractable vomiting 08/10/2019 SHELLI-inhibitor cough 08/10/2019 Hyperosmolar non-ketotic sta te in patient with type 2 diabetes mellitus ([facility]) 06/08/2019 Cholelithiasis 06/08/2019 Gastroparesis 04/15/2019 Neuropathy 04/14/2019 GERD (gastroesophageal reflux disease) 9 Assessment & Plan (09/25/2019 3:45 PM SHIRT SEWER): PPI. Diabetes mellitus 04/14/2019 Abdominal pain, generalized 04/13/2019 Overview (04/14/2019): Added automatically from request for surgery [id number] Intractable cyclical vomiting with nausea 2018 Overview (04/14/2019): Added automatically from request for surgery [id number] Essential hypertension 02/02/2019 Renal osteodystrophy 01/28/2019 Diarrhea 06/28/2018 Nausea and vomiting 06/28/2018 Assessment & Plan (09/25/2019 3:40 PM SHIRT SEWER): Suspect gastroparesis exacerbation. Prn Reglan IV. IVF. [...] drink = 0.6 oz pur e alcohol) [facility] Utilities Answer Date Recorded In the past 12 months has [email or web address], gas, oil, or water [employer] threatened to shut off services in your [...] often do you attend chur ch or religion services? More than 4 times per year 11/25/2023 Do you belong to any clubs o r organizations such as orthodox groups, unions, fraternal or athletic groups, or [...] Date Recorded PHQ-2 Total Score 0 08/20/2023 [facility] Answer Date [...] place to sleep or slept in a jail (including now)? No 11/25/2023 Personal Safety Answer Date Recorded Have you ever been in or are you currently in a harmful physical or emotional relationship or is someone making you feel afraid or unsafe? Denies 12/10/2023 Comments No Sex and Gender Information Value Date Recorded Sex Assigned at Not on file Legal Sex Female 7:07 PM SHIRT SEWER Gender Identity Not on file Sexual Orientation Not on file Last Filed Vital Signs Vital Sign Reading Time Taken Comments Blood Pressure 211/110 12/21/2023 4:26 PM SHIRT SEWER Pulse 75 12/21/2023 4:26 PM SHIRT SEWER Temperature 36.7 C (98 F) 12/10/2023 9:15 AM SHIRT SEWER Respiratory Rate 16 12/10/2023 9:15 AM SHIRT SEWER Oxygen Saturation 100% 12/10/2023 9:15 AM SHIRT SEWER Inhaled Oxygen Concentration - - Weight 78.5 kg (173 lb) 12/10/2023 9:15 AM SHIRT SEWER Height 167.6 cm (5' 6 ) 12/10/2023 9:15 AM SHIRT SEWER Body Mass Index 27.92 12/10/2023 9:15 AM SHIRT SEWER Results * Hepatitis C antibody Serum (12/21/2023 12:00 AM SHIRT SEWER) Hep C Ab Nonreactive Nonreactive [facility] Comment:No HCV antibody dete cted.The above test result was obtained using [employer] XPchemiluminescent method. Results obtained with different assay methodsor kits cannot be used interchangeably. HCV s/co ratio 0.07 0.00 - 0.79 [facility] Comment:s/co ratio Interpret ation Supplemental testing<0.80 Nonreactive No further testing required.0.80-0.99 Equivocal HCV RNA Quantitative Real-Time PCRis recommended.1.00->11.00 Reactive HCV RNA Quantitative Real-Time PCRis recommended to distinguish active from resolvedcases. Serum 12/21/2023 12/23/2023 Narrative [facility] - 12/23/2023 2:28 PM SHIRT SEWER Unless otherwise specified, test(s) performed at:[facility], [address] [place], [place] [address]LABORATORY DIRECTOR: Jordan Woodard M.D. Landy Rdz MD LAB MICROBIOLOGY - G ENERAL ORDERABLES Final Result [facility] * eGFR (11/26/2023 2:50 AM SHIRT SEWER) eGFR 16 mL/min/1. 73 m2 DEEPAK DEWITT [...] last reviewed 2021. Blood 11/26/2023 2:50 AM SHIRT SEWER 11/26/2023 3:38 AM SHIRT SEWER us Landy Rdz MD LAB BLOOD ORDERABLES Final Result Performing Organization Address City/[facility] Co de Phone Number DEEPAK [address] Department [place] [address] * (ABNORMAL) Hemoglobin A1c (11/18/2023 12:00 AM SHIRT SEWER) Hemoglobin A1C 7.9(H) 4.8 - 5.9 % [facility] Blood 11/18/2023 11/19/2023 Narrative [facility] - 11/20/2023 12:11 PM SHIRT SEWER Unless otherwise specified, test(s) performed at:[facility] [id number] DIRECTOR: Jordan Woodard M.D. us Notinfile Unknown LAB BLOOD ORDERABLES Final Res ult Performing Organization Address City/[facility] Co de Phone Number [facility] * Lipid panel (08/19/2023 1:29 AM CDT) Cholesterol 93 30 - 199 mg/dL [facility] Comment: Interpretive Data Ages < or [...] on 2018. HDL 53 >=40 mg/dL [facility] Comment: Interpretive Data Ages < or [...] 2018. LDL, calculated 31 <=129 mg/dL [facility] Comment: Interpretive Data Ages < or [...] revised on 2018. Non-HDL Cholesterol 40 mg/dL [facility] Comment: Interpretive Data Ages < or [...] last revised on 2018. Chol/HDL ratio 2 [facility] Blood 08/19/2023 1:29 AM CDT 08/19/2023 1:53 AM CDT us Katherine Galdamez MD LAB BLOOD ORDERABLES Final Re sult [facility] [place] [address] from Last 3 Months or Most Recently Relevant to Health Maintenance
--- OUTSIDE RECORDS SUMMARY | 2025-01-10 01:02 | XMS_ITS | Encounter Summary ---
Author Organization [facility] Healthcare Address [address] [place] [address] Care Team Providers Care Aluminum Fabrication Supervisor Name Role Phone Anna Cobian MD Primary Care Provid er Prakash Dash MD Unavailable [phone] Srinivasa Herbert MD Unavailable Tina Winter [facility] Unavailable Leticia Thomas MD Unavailable Bernadette Billy Unavailable Encounter Details Date Type Department Care Team (Late st Contact Info) Description 08/26/2023 Treatment [facility] [address] [place] [address] Shobha Schuster MD PhD [address] [facility] [address] [id number] [place] [address] Social History Tobacco Use Types Packs/Day Years [...] often do you attend chur ch or yazidism services? Never 08/20/2023 Do you belong to any clubs o r organizations such as yazidi groups, unions, fraternal or athletic groups, or [...] Date Recorded PHQ-2 Total Score 0 08/20/2023 [facility] - Occupational [...] place to sleep or slept in a usp (including now)? No 06/26/2023 Comments No Sex and Gender Information Value Date Recorded Sex Assigned at Not on file Legal Sex Female 7:07 PM AMMUNITION ASSEMBLY LABORER Gender Identity Not on file Sexual Orientation [...] HD who presents as a transfer from [facility] d/t concern for compartment syndrome. Testing [...] future transfusions. Contact Information: Please contact the [facility] with any questions. This report has been prepared by: Shobha Schuster MD Cosigned by Joselo Plascencia MD at 08/28/2023 5:12 PM CDT [...] COVID: Suspected 10/23/2023 10/23/2023 10/23/2023 3:49 PM AMMUNITION ASSEMBLY LABORER RSV, droplet 10/23/2023 10/23/2023 10/30/2023 3:05 AM AMMUNITION ASSEMBLY LABORER Rhino/Enterovirus 10/23/2023 10/23/2023 10/30/2023 3:05 AM AMMUNITION ASSEMBLY LABORER COVID19 10/23/2023 10/23/2023 11/07/2023 3:05 AM AMMUNITION ASSEMBLY LABORER COVID: Recovered Comment:Added based on recent COVID infection. 11/07/2023 11/08/2023 02/05/2024 3:05 AM C DT COVID: Suspected 11/21/2023 11/21/2023 11/21/2023 4:31 PM AMMUNITION ASSEMBLY LABORER Abscess/Wound/Cellulitis 11/22/2023 11/22/2023 3:05 AM AMMUNITION ASSEMBLY LABORER documented as of this encounter Care Teams Aluminum Fabrication Supervisor Relationship Specialty Start Date End Date Anna Cobian MD PCP - General 06/27/18 [place] [address] [facility] [address] [place] [address] Consulting Physician Endocrinology 09/29/19 [place] [address] [facility] [address] [place] [address] Consulting Physician Gastroenterology 06/06/23 Tina Winter, [employer] [address] [place] [address] Vascular Nurse Nephrology 08/10/23 Leticia Thomas MD [address] [place] [address] Consulting Physician Internal Medicine 10/28/23 Bernadette Billy [id number] [place] [address] [facility] Outpatient Take Up Operator 11/25/23 12/06/23 documented as of this encounter
--- OUTSIDE RECORDS SUMMARY | 2025-01-10 01:02 | XMS_ITS | Encounter Summary ---
Author Organization [facility] Healthcare Address [address] [place] [address] Care Team Providers Care Spray Gun Sizer Name Role Phone Anna Cobian MD Primary Care Provid er Prakash Dash MD Unavailable [phone] Hilary Fontenot Unavailable Unavailable Srinivasa Herbert MD Unavailable Tina Winter [facility] Unavailable [phone] Leticia Thomas MD Unavailable Bernadette Billy Unavailable Encounter Details Date Type Department Care Team (Late st Contact Info) Description 11/19/2021 Telephone [facility] Radiology [address] [place], [place] [id number] Yany James RN Social History Tobacco Use [...] on file Legal Sex Female 7:07 PM TRANSITIONAL CARE NURSE Gender Identity Not on file Sexual Orientation Not on file documented as of this encounter Plan of Treatment Not on file documented as of this encounter Visit Diagnoses Not on filedocumented in this encounter Additional Health Concerns Infection Onset Date Last Indicated Resolved Time COVID: Suspected 11/20/2021 11/20/2021 11/20/2021 11:06 PM TRANSITIONAL CARE NURSE COVID19 11/20/2021 11/20/2021 12/04/2021 3:05 AM TRANSITIONAL CARE NURSE COVID: Recovered Comment:Added based on recent COVID infection. 12/04/2021 12/05/2021 04/03/2022 3:05 AM C DT COVID: Suspected 06/02/2022 06/02/2022 06/02/2022 1:51 PM CDT COVID: Suspected 10/01/2022 10/01/2022 10/01/2022 4:30 PM TRANSITIONAL CARE NURSE Influenza, adult 10/01/2022 10/01/2022 10/08/2022 3:05 AM TRANSITIONAL CARE NURSE COVID: Suspected 10/23/2023 10/23/2023 10/23/2023 3:49 PM TRANSITIONAL CARE NURSE RSV, droplet 10/23/2023 10/23/2023 10/30/2023 3:05 AM TRANSITIONAL CARE NURSE Rhino/Enterovirus 10/23/2023 10/23/2023 10/30/2023 3:05 AM TRANSITIONAL CARE NURSE COVID19 10/23/2023 10/23/2023 11/07/2023 3:05 AM TRANSITIONAL CARE NURSE COVID: Recovered Comment:Added based on recent COVID infection. 11/07/2023 11/08/2023 02/05/2024 3:05 AM C DT COVID: Suspected 11/21/2023 11/21/2023 11/21/2023 4:31 PM TRANSITIONAL CARE NURSE Abscess/Wound/Cellulitis 11/22/2023 11/22/2023 3:05 AM TRANSITIONAL CARE NURSE documented as of this encounter Care Teams Spray Gun Sizer Relationship Specialty Start Date End Date Anna Cobian MD PCP - General 06/27/18 [place] [address] [address] [place] [address] Consulting Physician Endocrinology 09/29/19 Hilary Fontenot Outpatient Supervisor International Reservations 06/04/23 07/08/23 [place] [address] [place] [address] Consulting Physician Gastroenterology 06/06/23 Tina Winter, [facility] [address] [place] [address] Lime Kiln Operator Nephrology 08/10/23 Leticia Thomas MD [address] [facility] [place] [address] Consulting Physician Internal Medicine 10/28/23 Bernadette Billy [address] [place] [address] [facility] Outpatient Supervisor International Reservations 11/25/23 12/06/23 documented as of this encounter
--- OUTSIDE RECORDS SUMMARY | 2025-01-10 01:03 | XMS_ITS | Referral Summary ---
Author Organization [facility] Address [address] [place] [address] Care Team Providers Care Water Trainer Name Role Phone Anna Cobian MD Primary Care Provid er Source Comments [facility],non-owned Affiliates and Associated Physician Practices is amultiple site organization consisting of ambulatory clinics and hospital sitesin [place], [place], [place] and [place]. This disclosure is being madepursuant to the Care Everywhere program and may not contain all information available regarding this patient. Last updated 18.[facility] Allergies No known active allergies Medications * [...] jacquelin Non-reac tive 07/19/2023 9:52 AM CDT [facility] Hepatitis B Virus Surface Antigen Non-react jacquelin Non-reac tive 07/19/2023 9:52 AM CDT [facility] Hepatitis B Core Virus Antibody IgM Non-react jacquelin Non-reac tive 07/19/2023 9:52 AM CDT [facility] Hepatitis C Antibody Non-react jacquelin Non-reac tive 07/19/2023 9:52 AM CDT [facility] Comment:Hepatitis C Antibody screen indicates [...] CDT 07/19/2023 4:04 AM CDT Ian Olvera FLASK FITTER-CAP INSPECTOR LAB - CHEMISTR Y ORDERABLES Performing Organization Address City/State/[facility] Co de Phone Number [facility] [address] [address], [facility] [phone] from Last 3 Months or Most Recently Relevant to Health Maintenance Advance Directives * Full Code (Latest Code Status on File) Date Activated Date Inactivated Comments 08/06/2023 9:12 AM 08/08/2023 5:01 PM * Full Code Date Activated Date Inactivated Comments 07/19/2023 1:08 AM 07/26/2023 5:09 PM Care Teams Water Trainer Relationship Specialty [place] [address] [address] PCP - General Internal Medicine 12/04/17
--- OUTSIDE RECORDS SUMMARY | 2025-01-10 01:03 | XMS_ITS | Patient Health Summary ---
Author Organization [facility] Address [address] [place] [address] Care Team Providers Care Electric Container Tester Name Role Phone Anna Cobian MD Primary Care Provid er Note from [facility],non-owned Affiliates and Associated Physician Practices is amultiple site organization consisting of ambulatory clinics and hospital sitesin [place], [place], [place]. This disclosure is being madepursuant to the Care Everywhere program and may not contain all information available regarding this patient. Last updated 18.[facility] [employer] Allergies No known active allergies Medications * [...] with end stage renal failure on dialysis ([facility]) * PREPARE RBC LEUKOREDUCED UNIT(Performed 08/09/2023) * GLUCOSE - POINT OF CARE(Performed 08/08/2023) * RENAL FUNCTION PANEL(Performed 08/08/2023) Performed for ESRD (end stage renal disease) ([facility]) * MAGNESIUM BLOOD(Performed 08/08/2023) Performed for ESRD (end stage renal disease) ([facility]) * CBC W/O DIFFERENTIAL(Performed 08/08/2023) Performed for Melena * PTH INTACT W/O CALCIUM(Performed 08/08/2023) Performed for ESRD (end stage renal disease) ([facility]) * GLUCOSE - POINT OF CARE(Performed 08/07/2023) * GLUCOSE - POINT OF CARE(Performed 08/07/2023) * CARDIAC EKG ORDER(Performed 08/07/2023) * HEMODIALYSIS INPATIENT(Performed 08/07/2023) * GLUCOSE - POINT OF CARE(Performed 08/07/2023) * GLUCOSE - POINT OF CARE(Performed 08/07/2023) * PATHOLOGY TISSUE(Performed 08/07/2023) Performed for Melena * [place] ED EGD FLEX TRANSORAL DX(Performed 08/07/2023) Performed for Melena * EGD(Performed 08/07/2023) * GLUCOSE - POINT OF CARE(Performed 08/07/2023) * PTH INTACT W/O CALCIUM(Performed 08/07/2023) Performed for ESRD (end stage renal disease) ([facility]), Secondary hyperparathyroidism ([facility]) * BASIC METABOLIC PANEL (CALCIUM TOTAL)(Performed 08/07/2023) [...] * CBC W AUTO DIFFERENTIAL(Performed 12/04/2017) * [place] ED EGD FLEX TRANSORAL DX Performed for Melena Results * HOME SLEEP STUDY (10/19/2023 11:59 PM HAZMAT CDL DRIVER) Narrative Tabatha Lima - 10/19/2023 11:59 PM HAZMAT CDL DRIVER Ken Casas MD 11/21/2023 9:36 AM SleepView Interpretation Patient Name: Celeste Waters : 1985 Study Date: 10/19/2023 Referred by: Chandler Childress MD Device Unique Identifier: Interpreted by: Ken Casas MD PATIENT INFORMATION: This 38-year-old Female was referred for a type 3 portable sleep study. Height was 66.0 in and weight was 179.0 lb, which represented a BMI of 28.89. Patient has an [place] score of 13/24. PROCEDURE: The patient underwent a digital diagnostic portable type 3 device home sleep test; Utilizing [employer] portable sleep monitor. The patient was provided with printed out instructions and access to a 24/7 patient support number with staff carton forming machine helper to answer any questions regarding the study. [...] into the SleepView unit and uploaded to [email or web address] website for scoring and interpretation. All raw data, graphically depicting all recorded channels, was utilized for scoring and detailed interpretive review. The standards put forth by the [place] [employer] were followed for the complete scoring by a Notary Public and interpretation by a Board Certified Sleep [...] I attest that I have conducted an [id number] review of the raw data acquired in [...] a BMI of 28.89. Patient has an [place] score of 13/24. PROCEDURE: The patient underwent a digital diagnostic portable type 3device home sleep test; Utilizing [employer] portable sleepmonitor. The patient was provided with printed out instructions and accessto a 24/ patient support number with staff carton forming machine helper to answer anyquestions regarding the study. Sleep [...] built into the SleepView unit and uploaded [email or web address] website for scoring and interpretation. All rawdata, graphically depicting all recorded channels, was utilized forscoring and detailed interpretive review. The standards put forth by theAmerican Academy of Sleep Medicine were followed for the complete scoringby a Notary Public and interpretation by a Board Certified SleepMedicine [...] time was spent snoring. The Snoring Count [id number] . The Snoring Index was 28.3 . [...] I attest that I have conducted an [id number] review of the raw dataacquired in this [...] is included. Unit Description AS1 LR PRBC [facility] BLOOD BANK LAB Unit ABO O [facility] B[facility]OD [facility] Unit Rh POS [facility] BLOOD [facility] Product Number R02 [facility] B LOOD BANK LAB Unit Donor # [id number] [facility] BLOOD B[facility] LAB Unit Status [facility] Product [facility] [id number] [facility] BLO OD BANK LAB Blood Type Barcode 5100 [facility] BLOOD [facility] LAB Expiration Date S BLOOD BANK LAB Unit Description AS1 LR PRBC [facility] BLOOD BANK LAB Unit ABO O [facility] BLOOD [facility] Unit Rh POS [facility] BLOOD BANK LAB Product Number R02 [facility] B LOOD BANK LAB Unit Donor # [id number] [facility] BLOOD BANK LAB Unit Status released [facility] BLOO D BANK LAB Product Code [id number] [facility] BLO OD BANK LAB Blood Type Barcode 5100 [facility] BLOOD [facility]ANK LAB Expiration Date [facility] BLOOD B[facility] LAB Blood Bank BLOOD SPECIMEN / Unknown 08/06/2023 5:13 AM CDT Raphael Kolb MD LAB - BLOOD BANK ORD ERABLES [facility] BLOOD BANK LAB [address] [place] [address], [place] [phone] * (ABNORMAL) GLUCOSE - POINT OF CARE (08/08/2023 3:50 PM CDT) Only the most recent of74 resultswithin the time period is included. Glucose WB/POC 235(H) 70 - 115 mg/dL 08/08/2023 3:[address] [facility] Specimen Type Arterial 08/08/2023 3:55 PM CDT [facility] Blood BLOOD SPECIMEN / Unknown 08/08/2023 3:50 PM CDT 08/08/2023 3:55 PM CDT Teena Combs MD LAB - POINT OF CARE ORDERABLES Performing Organization Address City/[facility]/ZIP Co de Phone Number [facility] [address] [place] [address], [place] [phone] * (ABNORMAL) PTH INTACT W/O CALCIUM (08/08/2023 3:17 AM CDT) Only the most recent of2 resultswithin the time period is included. PTH Intact 866.5(H) 8.0 - 77.0 pg/mL 08/08/2023 4:31 AM CDT [facility] Blood BLOOD SPECIMEN / Unknown Lab Venipuncture / Unknown 08/08/2023 3:17 AM CDT 08/08/2023 3:58 AM CDT Teena Combs MD LAB - CHEMISTRY ORDE DESTINEE Performing Organization Address City/[facility]/ZIP Co de Phone Number [facility] [address] [place] [address], [place] [phone] * (ABNORMAL) CBC W/O DIFFERENTIAL (08/08/2023 3:17 AM T) Only the most recent of7 resultswithin the time period is included. WBC 4.6 3.5 - 10.5 10 3/uL 08/08/2023 4:05 AM [facility] RBC 2.90(L) 3.80 - 5.20 10 6/uL 08/08/2023 4:05 AM [facility] Hemoglobin 8.0(L) 12.0 - 15.6 g/dL 08/08/2023 4:05 AM [facility] Hematocrit 25.7(L) 35.0 - 45.0 % 08/08/2023 4:05 AM [facility] MCV 88.6 80.7 - 98.3 fL 08/08/2023 4:05 AM [facility] MCH 27.6 26.7 - 34.0 pg 08/08/2023 4:05 AM [facility] MCHC 31.1 30.8 - 35.9 g/dL 08/08/2023 4:05 AM [facility] RDW-SD 55.0(H) 36.0 - 50.0 fL 08/08/2023 4:05 AM [facility] RDW-CV 17.0(H) 11.2 - 14.8 % 08/08/2023 4:05 AM [facility] Platelet Count 150 150 - 400 10 3/uL 08/08/2023 4:05 AM [facility] MPV 10.3 9.4 - 12.9 fL 08/08/2023 4:05 AM [facility] nRBC Absolute 0.00 0 10 3/uL 08/08/2023 4:05 AM [facility] nRBC Auto 0.0 0 /100 WBC 08/08/2023 4:05 AM [facility] Blood BLOOD SPECIMEN / Unknown Lab Venipuncture / Unknown 08/08/2023 3:17 AM CDT 08/08/2023 3:58 AM T Teena Combs MD LAB - HEMATOLOGY ORD ERABLES [facility] [address] [place] [address], [facility] [phone] * (ABNORMAL) RENAL FUNCTION PANEL (08/08/2023 3:[address] [facility]) BUN 42(H) 7 - 26 mg/dL 08/08/2023 4:37 AM [facility] Creatinine 6.67(H) 0.56 - 0.96 mg/dL 08/08/2023 4:37 AM [facility] Sodium 131(L) 136 - 145 mmol/L 08/08/2023 4:37 AM [facility] Potassium 5.4(H) 3.5 - 4.5 mmol/L 08/08/2023 4:37 AM [facility] Chloride 95(L) 98 - 107 mmol/L 08/08/2023 4:37 AM [facility] CO2 25 22 - 29 mmol/L 08/08/2023 4:37 AM [facility] Glucose 245(H) 70 - 115 mg/dL 08/08/2023 4:37 AM [facility] Albumin 2.5(L) 3.4 - 5.0 g/dL 08/08/2023 4:37 AM [facility] Calcium 8.4 8.4 - 10.2 mg/dL 08/08/2023 4:37 AM [facility] Phosphorus 7.0(H) 2.9 - 5.1 mg/dL 08/08/2023 4:37 AM [facility] Anion Gap 11 6 - 16 08/08/2023 4:37 AM [facility] BUN/Creatinine Ratio 6(L) 7 - 23 08/08/2023 4:37 AM [facility] Osmolality Calculated 291 275 - 295 mOsm/kg 08/08/2023 4:37 AM [facility] eGFR by CKD-EPI 8(L) >=90 mL/min/1.7 3 m2 08/08/2023 4:37 AM [facility] Blood BLOOD SPECIMEN / Unknown Lab Venipuncture / Unknown 08/08/2023 3:17 AM CDT 08/08/2023 3:58 AM CDT Teena Combs MD LAB - CHEMISTRY MELANIE FELIPE Performing Organization Address City/[facility]/ZIP Co de Phone Number [address] [address], [facility] [phone] * MAGNESIUM BLOOD (08/08/2023 3:17 AM CDT) Only the most recent of9 resultswithin the time period is included. Magnesium 2.3 1.6 - 2.6 mg/dL 08/08/2023 4:[address] [facility] Blood BLOOD SPECIMEN / Unknown Lab Venipuncture / Unknown 08/08/2023 3:17 AM CDT 08/08/2023 3:58 AM CDT Teena Combs MD LAB - CHEMISTRY MELANIE FELIPE Performing Organization Address [facility]/ZIP Co de Phone Number [address] [address], [facility] [phone] * CARDIAC EKG ORDER (08/07/2023 2:55 PM CDT) Only the most recent of2 resultswithin the time period is included. Narrative 08/07/2023 2:55 PM CDT Ordered by an unspecified provider. Scanned Document CARDIAC SERVICES ORD ERABLES * PATHOLOGY TISSUE (08/07/2023 8:08 AM CDT) Case Report Surgical Pathology Report Case: [id number] Authorizing Provider: Manuel Braun MD Collected: 08/07/2023 08:08 AM Ordering Location: [facility] ENDOSCOPY Received: 08/07/2023 09:46 AM Pathologist: Kamille Pandya MD Specimens: A) - Gastric, gastric bx R/O gastritis, PHG B) - Esophagus, esophageal bx-possible esophageal wart 08/10/2023 2:23 PM CDT [facility] Final Diagnosis Stomach, biopsy (A): - Mild proton pump inhibitor effect - No active inflammation or H. pylori organisms (H&E examination) Esophagus, biopsy (B): - Squamous papilloma 08/10/2023 2:23 PM [facility] Microscopic Description and Comment Microscopic examination substantiates the final diagnosis. 08/10/2023 2:23 PM [facility] Clinical History The patient is a 37-year-old woman who presented for melena, history of duodenal ulcer 1 month ago associated with NSAIDs. Operative procedure/findings: EGD-nodule in the esophagus, biopsied to rule out possible wart; erosive gastropathy versus portal hypertensive gastropathy, biopsied 08/10/2023 2:23 PM [facility] Gross Description The requisition and [...] in cassette B1. [place] 08/10/2023 2:23 PM [facility] Pathologist Location at [facility] 08/10/2023 2:23 PM [facility] Disclaimer The performance characteristics of all immunohistochemical and indirect immunofluorescence stains (if any) cited in this report were determined by the Histopathology Laboratory of [facility]. Some of these tests were developed by [...] the attending (teaching) pathologist. 08/10/2023 2:23 PM [facility] Embedded Images 08/10/2023 2:23 PM [facility] Biopsy, NOS GASTRIC CONTENTS SPECIMEN / Unknown 08/07/2023 8:08 AM CDT 08/07/2023 9:46 AM CDT Comment:Pre-op diagnosis: Melena Biopsy, NOS REGION OF ESOPHAGUS / Unknown 08/07/2023 8:20 AM CDT 08/07/2023 9:46 AM CDT Comment:Pre-op diagnosis: Melena Manuel Braun MD LAB - PATHOLOGY/CYTO LOGY ORDERABLES Performing Organization Address City/State/[facility] de Phone Number [facility] [address] [phone] * EGD (08/07/2023 7:48 AM CDT) Report [...] entire procedure. Procedure Code(s): --- Professional --- 06480, Esophagogastroduode noscopy, flexible, transoral; with biopsy, single or multiple Diagnosis Code(s): --- Professional --- K22.89, Other specified disease of esophagus K31.89, Other diseases of stomach and duodenum K29.80, Duodenitis without bleeding K92.1, Melena (includes Hematochezia) CPT copyright 2021 [place] [employer]. All rights reserved. The codes documented in this report are preliminary and upon student recruiter review may be revised to meet current compliance requirements. Manuel Braun MD 08/07/2023 8:36:31 AM Note Initiated On: 08/07/2023 7:48 AM Number of Addenda: [id number] [place] [address] PROVATION 08/07/2023 7:48 AM CDT Manuel Braun MD GI PROCEDURE ORDERAB LES [facility] PROVATION * (ABNORMAL) BASIC METABOLIC PANEL (CALCIUM TOTAL) (08/07/2023 2:29 AM CDT) Only the most recent of5 resultswithin the time period is included. BUN 30(H) 7 - 26 mg/dL 08/07/2023 3:57 AM [facility] Creatinine 5.06(H) 0.56 - 0.96 mg/dL 08/07/2023 3:57 AM [facility] Sodium 133(L) 136 - 145 mmol/L 08/07/2023 3:57 AM [facility] Potassium 4.4 3.5 - 4.5 mmol/L 08/07/2023 3:57 AM [facility] Chloride 98 98 - 107 mmol/L 08/07/2023 3:57 AM [facility] CO2 28 22 - 29 mmol/L 08/07/2023 3:57 AM [facility] Glucose 129(H) 70 - 115 mg/dL 08/07/2023 3:57 AM [facility] Calcium 8.3(L) 8.4 - 10.2 mg/dL 08/07/2023 3:57 AM [facility] Anion Gap 7 6 - 16 08/07/2023 3:57 AM [facility] BUN/Creatinine Ratio 6(L) 7 - 23 08/07/2023 3:57 AM [facility] Osmolality Calculated 284 275 - 295 mOsm/kg 08/07/2023 3:57 AM T [facility] eGFR by CKD-EPI 11(L) >=90 mL/min/1.7 3 m2 08/07/2023 3:57 AM T [facility] Blood BLOOD SPECIMEN / Unknown Lab Venipuncture / Unknown 08/07/2023 2:29 AM CDT 08/07/2023 3:31 AM CDT Domonique Romano MD LAB - CHEMISTRY ORDRichmond FELIPE Performing Organization Address City/[facility]/ZIP Co de Phone Number [address] [address], [facility] [phone] * (ABNORMAL) PT-INR [facility] (08/06/2023 5:10 AM CDT) Only the most recent of8 resultswithin the time period is included. PT 15.5(H) 12.1 - 14.8 Seconds 08/06/2023 5:52 AM T [facility] INR 1.2 See Comment 08/06/2023 5:52 AM T [facility] Comment:The suggested therap eutic range for standard coumadin (warfarin) therapy is an INR of 2.0-3.0. For high-risk patients (Mechanical Mitral Valve Prosthesis, etc.), the suggested prophylactic therapeutic range is an INR of 2.5-3.5. Blood BLOOD SPECIMEN / Unknown Venipuncture / Unknown 08/06/2023 5:10 AM CDT 08/06/2023 5:12 AM CDT Sidney Marks MD LAB - COAGULATION OR DERABLES Performing Organization Address City/[facility]/ZIP Co de Phone Number [address] [address], [place] [phone] * TYPE + SCREEN PANEL (08/06/2023 5:10 AM CDT) Only the most recent of2 resultswithin the time period is included. Antibody Screen POS 6:[address] [facility] B[facility]OD [facility] LAB ABO Rh O POS 08/06/2023 6:[address] [facility] LAB Blood Bank BLOOD SPECIMEN / Unknown Venipuncture / Unknown 08/06/2023 5:10 AM CDT 08/06/2023 5:13 AM CDT Sidney Marks MD LAB - BLOOD BANK ORD ERABLES [facility] B[facility]OD [facility] LAB [address] [place] [address], [facility] [phone] * ROSANGELA DIRECT (08/06/2023 5:10 AM CDT) Only the most recent of2 resultswithin the time period is included. Direct Rosangela (EDINSON) NEG 08/06/2023 8:[address] [facility] BLOOD [facility] Blood Bank BLOOD SPECIMEN / Unknown Venipuncture / Unknown 08/06/2023 5:10 AM CDT 08/06/2023 5:13 AM CDT Sidney Marks MD LAB - BLOOD BANK ORD ERABLES Performing Organization Address City/[facility]/ZIP Co de Phone Number [facility] BLOOD [facility] [address] [place] [address], [facility] [phone] * ANTIBODY IDENTIFICATION (08/06/2023 5:10 AM CDT) Only the most recent of2 resultswithin the time period is included. Antibody 1 POS, Anti-E 08/06/2023 9:[address] [facility] B[facility]OD [facility] Antibody 2 POS, Anti-Reyna 08/06/2023 9:[address] [facility] BLOOD [facility] LAB Antibody 3 POS, Anti-NDS (No Discernible Spec) 08/06/2023 9:[address] [facility] BLOOD [facility] LAB Blood Bank BLOOD SPECIMEN / Unknown Venipuncture / Unknown 08/06/2023 5:10 AM CDT 08/06/2023 5:13 AM CDT Sidney Marks MD LAB - BLOOD BANK ORD ERABLES [facility] LAB [address] [place] [address], [facility] [phone] * (ABNORMAL) HGB HCT PANEL (08/06/2023 5:10 AM CDT) [facility] Hemoglobin 8.3(L) 12.0 - 15.6 g/dL 08/06/2023 5:[address] [facility] Hematocrit 26.3(L) 35.0 - 45.0 % 08/06/2023 5:17 AM CDT [facility] Blood BLOOD SPECIMEN / Unknown Venipuncture / Unknown 08/06/2023 5:10 AM CDT 08/06/2023 5:12 AM CDT Sidney Marks MD LAB - HEMATOLOGY ORD iTOKBLES Performing Organization Address City/[facility]/ZIP Co de Phone Number [facility] [address] [place] [address], [facility] [phone] * (ABNORMAL) CBC W AUTO DIFFERENTIAL (08/05/2023 8:09 PM CDT) Only the most recent of8 resultswithin the time period is included. [facility] WBC 7.2 3.5 - 10.5 10 3/uL 08/05/2023 8:33 PM CDT [facility] RBC 3.00(L) 3.80 - 5.20 10 6/uL 08/05/2023 8:33 PM CDT [facility] Hemoglobin 8.4(L) 12.0 - 15.6 g/dL 08/05/2023 8:33 PM CDT [facility] Hematocrit 26.9(L) 35.0 - 45.0 % 08/05/2023 8:33 PM CDT [facility] MCV 89.7 80.7 - 98.3 fL 08/05/2023 8:[address] [facility] MCH 28.0 26.7 - 34.0 pg 08/05/2023 8:33 PM CDT [facility] MCHC 31.2 30.8 - 35.9 g/dL 08/05/2023 8:33 PM [facility] RDW-SD 58.7(H) 36.0 - 50.0 fL 08/05/2023 8:33 PM [facility] RDW-CV 18.0(H) 11.2 - 14.8 % 08/05/2023 8:33 PM [facility] Platelet Count 187 150 - 400 10 3/uL 08/05/2023 8:33 PM [facility] MPV 10.4 9.4 - 12.9 fL 08/05/2023 8:33 PM [facility] nRBC Absolute 0.00 0 10 3/uL 08/05/2023 8:33 PM [facility] nRBC Auto 0.0 0 /100 WBC 08/05/2023 8:33 PM [facility] Neutrophils % 63.7 35.0 - 70.0 % 08/05/2023 8:33 PM [facility] Lymphocytes % 17.0(L) 20.0 - 43.0 % 08/05/2023 8:33 PM [facility] Monocytes % 6.7 5.0 - 13.0 % 08/05/2023 8:33 PM [facility] Eosinophils % 11.0(H) 0.0 - 6.0 % 08/05/2023 8:33 PM [facility] Basophil % 1.3 0.0 - 2.0 % 08/05/2023 8:33 PM [facility] Neutrophils Absolute 4.56 1.60 - 7.00 10 3/uL 08/05/2023 8:33 PM [facility] Lymphocyte Absolute 1.22 1.10 - 3.90 10 3/uL 08/05/2023 8:33 PM [facility] Monocytes Absolute 0.48 0.26 - 1.07 10 3/uL 08/05/2023 8:33 PM [facility] Eosinophils Absolute 0.79(H) 0.00 - 0.47 10 3/uL 08/05/2023 8:33 PM [facility] Basophils Absolute 0.09(H) 0.00 - 0.08 10 3/uL 08/05/2023 8:33 PM [facility] Immature Granulocytes % 0.3 0.0 - 1.0 % 08/05/2023 8:33 PM [facility] Immature Granulocytes Absolute 0.02 08/05/2023 8:33 PM [facility] Blood BLOOD SPECIMEN / Unknown Venipuncture / Unknown 08/05/2023 8:09 PM CDT 08/05/2023 8:22 PM CDT Raphael Kolb MD LAB - HEMATOLOGY ORD ERABLES [facility] [address] [place] [address], [facility] [phone] * (ABNORMAL) COMPREHENSIVE METABOLIC PANEL (08/05/2023 8:09 PM T) Only the most recent of10 resultswithin the time period is included. BUN 58(H) 7 - 26 mg/dL 08/05/2023 8:53 PM [facility] Creatinine 8.31(H) 0.56 - 0.96 mg/dL 08/05/2023 8:53 PM [facility] Sodium 136 136 - 145 mmol/L 08/05/2023 8:53 PM [facility] Potassium 5.2(H) 3.5 - 4.5 mmol/L 08/05/2023 8:53 PM [facility] Chloride 99 98 - 107 mmol/L 08/05/2023 8:53 PM [facility] CO2 24 22 - 29 mmol/L 08/05/2023 8:53 PM [facility] Glucose 146(H) 70 - 115 mg/dL 08/05/2023 8:53 PM [facility] Calcium 8.7 8.4 - 10.2 mg/dL 08/05/2023 8:53 PM [facility] Protein Total 9.3(H) 6.0 - 8.3 g/dL 08/05/2023 8:53 PM [facility] Albumin 2.7(L) 3.4 - 5.0 g/dL 08/05/2023 8:53 PM CDT [facility] Bilirubin Total 0.7 0.2 - 1.2 mg/dL 08/05/2023 8:53 PM [facility] Alkaline Phosphatase 327(H) 40 - 150 U/L 08/05/2023 8:53 PM [facility] ALT 23 5 - 55 U/L 08/05/2023 8:53 PM [facility] AST 25 5 - 34 U/L 08/05/2023 8:53 PM [facility] Anion Gap 13 6 - 16 08/05/2023 8:53 PM [facility] BUN/Creatinine Ratio 7 7 - 23 08/05/2023 8:53 PM [facility] Osmolality Calculated 301(H) 270 - 300 mOsm/kg 08/05/2023 8:53 PM [facility] Albumin/Globulin Ratio 0.4(L) 1.1 - 2.3 08/05/2023 8:53 PM [facility] eGFR by CKD-EPI 6(L) >=90 mL/min/1.7 3 m2 08/05/2023 8:53 PM [facility] Blood BLOOD SPECIMEN / Unknown Venipuncture / Unknown 08/05/2023 8:09 PM CDT 08/05/2023 8:22 PM CDT Raphael Kolb MD [facility] Organization Address City/State/ZIP Co de Phone Number [facility] [address] [place] [address], [facility] [phone] * HCG BETA BLOOD QUANTITATIVE (08/05/2023 8:09 PM CDT) Beta-hCG Total Quantitative 3 mIU/mL 08/05/2023 8:57 PM [facility] Comment: HCG Numeric Result Interpretation: Non- [...] - CHEMISTRY MELANIE FELIPE Performing Organization Address [facility] Co de Phone Number [address] [address], [facility] [phone] * (ABNORMAL) PHOSPHORUS BLOOD (08/05/2023 8:09 PM CDT) Only the most recent of9 resultswithin the time period is included. Phosphorus 8.2(H) 2.9 - 5.1 mg/dL 08/05/2023 9:[address] [facility] Blood BLOOD SPECIMEN / Unknown Venipuncture / Unknown 08/05/2023 8:09 PM CDT 08/05/2023 8:22 PM CDT Yamileth Isaac APRN-JOB BOSS LAB - CHEMIS TRY ORDERABLES Performing Organization Address [facility] [facility] Co de Phone Number [address] [address], [facility] [phone] * EKG 12-LEAD (08/05/2023 2:39 PM CDT) Ventricular Rate 82 BPM [facility] MUSE Atrial Rate [address] [facility] MUSE P-R Interval [address] [facility] MUSE QRS Duration ms [address] [facility] MUSE Q-T Interval ms [address] [facility] MUSE QTC Calculation (Bezet) [address] [facility] MUSE Calculated P Perley 22 degrees SL MUSE Calculated R Perley 5 degrees SL MUSE Calculated T Perley 15 degrees SL MUSE Interpretation EKG NORMAL SINUS RHYTHM POSSIBLE ANTEROLATERAL INFARCT , AGE UNDETERMINED ABNORMAL ECG NO PREVIOUS ECGS AVAILABLE Confirmed by BHUPINDER CRISTINA MD ([id number]) on 08/10/2023 3:21:[address] [facility] MUSE 08/05/2023 2:39 PM CDT 08/10/2023 3:21 PM CDT Raphael Kolb MD ECG ORDERABLES Performing Organization Address City/[facility]/ZIP Co de Phone Number [facility] MUSE * PREPARE FFP UNIT(S), 1 Units (07/27/2023 1:17 AM CDT) Unit Description N/A [facility] BLOOD BANK LAB Blood Bank BLOOD SPECIMEN / Unknown Ian Olvera HR SHARED SERVICES CONSULTANT-JOB BOSS LAB - BLOOD BA NK ORDERABLES Performing Organization Address City/[facility]/ZIP Co de Phone Number [facility] BLOOD BANK LAB [address] [place] [address], [facility] [phone] * PTT [facility] (07/26/2023 4:43 AM CDT) Only the most recent of8 resultswithin the time period is included. APTT 33.5 23.0 - 38.4 Seconds 07/26/2023 5:[address] [facility] Comment:Suggested therapeuti c range for full dose I.V. unfractionated heparin therapy for venous thromboembolism is 71 to 109 seconds. Blood BLOOD SPECIMEN / Unknown Venipuncture / Unknown 07/26/2023 4:43 AM CDT 07/26/2023 4:59 AM CDT Janae Alexander HR SHARED SERVICES CONSULTANT-JOB BOSS LAB - COAG ULATION ORDERABLES Performing Organization Address [facility] Co de Phone Number [facility] [address] [place] [address], [place] [phone] * (ABNORMAL) IRON + TRANSFERRIN PANEL (07/26/2023 4:43 AM CDT) Iron 89 40 - 150 ug/dL 07/26/2023 6:[address] [facility] Transferrin 157(L) 174 - 382 mg/dL 07/26/2023 6:32 AM CDT [facility] Transferrin Saturation % 45 16 - 50 % 07/26/2023 6:32 AM CDT [facility] TIBC Calculated 196(L) 240 - 450 ug/dL 07/26/2023 6:[address] [facility]OR[facility]ORY [facility] Blood BLOOD SPECIMEN / Unknown Venipuncture / Unknown 07/26/2023 4:43 AM CDT 07/26/2023 4:59 AM CDT Bonilla Covarrubias MD LAB - CHEMISTRY ORDERABLES Performing Organization Address [facility]/ZIP Co de Phone Number [address] [address], [facility] [phone] * (ABNORMAL) FERRITIN (07/26/2023 4:43 AM CDT) Pathologist [facility] Ferritin 2,519(H) 13 - 204 ng/mL 07/26/2023 7:23 AM CDT [facility] Comment:Result obtained by cortez velazquez. Blood BLOOD SPECIMEN / Unknown Venipuncture / Unknown 07/26/2023 4:43 AM CDT 07/26/2023 4:59 AM CDT Bonilla Covarrubias MD LAB - CHEMISTRY ORDERABLES Performing Organization Address [facility] Co de Phone Number [address] [address], [facility] [phone] * HEPARIN INDUCED PLATELET ANTIBODY W/ RFLX (07/23/2023 10:59 AM CDT) [facility] Hep-Ind Thrombocytopenia PF4 Antibody IgG 0.150 <=0.399 OD 07/25/2023 12:53 PM CDT [facility] [employer] ([facility]) Comment: Heparin-Induced Thrombocytopenia Antibodies were not detected. [...] other guidance for diagnosis is available in [facility] Consult: [email or web address] . Performed By: [facility] [employer] [address] [place] [address] Board Handler: Angel Hill MD, PhD CLIA Number: [id number] Blood BLOOD SPECIMEN / Unknown Venipuncture / Unknown 07/23/2023 10:59 AM CDT 07/23/2023 11:05 AM CDT Eda Camilo PA-C LAB - SEROLOGY ORD ERABLES [facility]) [address] [place] [address], [facility] * ELBA BLOOD SCREEN W/REFLEX TITER (07/22/2023 3:39 AM CDT) Only the most recent of2 resultswithin the time period is included. ELBA IgG None Detected None Detected 07/24/2023 9:09 AM CDT [facility] ([facility]) Comment: If suspicion of connective tissue disease is strong and ELBA EIA is negative, consider testing for ELBA by IFA ([id number]). INTERPRETIVE INFORMATION: Anti-Nuclear Antibodies (ELBA), IgG by JOE Antinuclear Antibodies (ELBA), IgG by JOE: ELBA specimens are screened using enzyme-linked immunosorbent assay (JOE) methodology. All JOE results reported as Detected are further tested by indirect fluorescent assay (IFA) using HEp-2 substrate with an IgG-specific conjugate. The ELBA JOE screen is designed to detect antibodies against dsDNA, histones, SS-A (Ro), SS-B (La), Gibson, Gbison/[employer]GER [employer]ING, Scl-70, Tammy-1, centromeric proteins, other antigens extracted from the HEp-2 cell nucleus. ELBA JOE assays have been reported to have lower sensitivities than ELBA IFA for systemic autoimmune rheumatic diseases (SARD). Negative results do not necessarily rule out SARD. Performed By: [employer] [address] [place] [address] Board Handler: Angel Hill MD, PhD CLIA Number: [id number] Blood BLOOD SPECIMEN / Unknown Venipuncture / Unknown 07/22/2023 3:39 AM CDT 07/22/2023 4:21 AM CDT Angelica MCDOWELL LAB - CHEMISTRY MELANIE FELIPE [facility] ([facility]) [address] [place] [address], [facility] * IR ANGIO AV SHUNT IMAGING (07/21/2023 [...] Indication: N18.6: ESRD (end stage renal disease) ([facility]) N18.6: End stage renal disease ([facility]) Additional History: COMPARISON: None. TECHNIQUE: Crusher Operator:Karlie Rosen MD Front Clerk:Shalom Rome MD FLUOROSCOPY DOSE: 43 mGy Reference [...] notes of the sedation were reviewed. Total cvlx-ix-lswj sedation time 105 minutes. MEDICATIONS: . 2mg [...] exchanged over a microwire for a 5 Syrian sheath which was subsequently exchanged for a [...] wire. The Kumpe catheter was removed. A Cleaner Wall rotational thrombectomy was used to macerate clot [...] disease (CMS/HCC) Additional History: COMPARISON: None. TECHNIQUE: Crusher Operator:Karlie Rosen MD Front Clerk:Shalom Rome MD FLUOROSCOPY DOSE: 43 mGy Reference [...] notes of the sedation were reviewed. Total llda-je-jwow sedation time 105 minutes. MEDICATIONS: . 2mg [...] was exchanged over a microwire for a5 Syrian sheath which was subsequently exchanged for a [...] wire. The Kumpe catheter was removed. A Cleaner Wall rotational thrombectomy was used to macerate clot [...] None Det ng/mL 07/28/2023 1:38 PM CDT [facility] [employer] ([facility]) Comment: Serum or Plasma Reporting Limit: 10 [...] from less than 10 ng/mL to about 64787 ng/mL. After oral administration of an immediate-release [...] min. for 20 doses (over 3 hours): 26692 ng/mL This test should be considered as a therapeutic drug monitoring/toxicological test associated with niacin (Vitamin B3) supplementation. Care should be taken in the use of this test for basal Vitamin B3 determination. The supplied reference comment does not reflect normal, endogenous Vitamin B3 concentrations. Analysis by High Performance Liquid Chromatography/ Tandem Mass Spectrometry (LC-MS/MS) Nicotinamide 64 ng/mL 07/28/2023 1:38 PM [facility] ([facility]) Comment: Serum or Plasma Reporting Limit: 10 [...] None Det ng/mL 07/28/20 23 1:38 PM [facility] ([facility]) Comment: Serum or Plasma Reporting Limit: 10 [...] Food and Drug Administration. Testing performed at [facility] [employer] [employer]. [address] [place] [id number] CLIA [id number] Blood BLOOD SPECIMEN / Unknown Venipuncture / Unknown 07/21/2023 6:48 AM CDT 07/21/2023 6:51 AM CDT Angelica MCDOWELL LAB - CHEMISTRY MELANIE FELIPE Performing Organization Address [facility]/ZIP Co de Phone Number [facility] [employer] [facility]) [address] [place] [address] * (ABNORMAL) VITAMIN E (07/21/2023 6:48 AM CDT) Pathologist [facility] Vitamin E Alpha Tocopherol 5.3(L) 5.5 - 18.0 mg/L 07/24/2023 1:40 PM CDT [facility] ([facility]) Comment: This test was developed and its performance characteristics determined by [employer]. It has not been cleared or approved by the US Food and Drug Administration. This test was performed in a CLIA certified laboratory and is intended for clinical purposes. Vitamin E Gamma Tocopherol 1.0 0.0 - 6.0 mg/L 07/24/2023 1:40 PM CDT [facility] ([facility]) Comment: Performed By: [employer] [address] [place] [address] Board Handler: Angel Hill MD, PhD CLIA Number: [id number] Blood BLOOD SPECIMEN / Unknown Venipuncture / Unknown 07/21/2023 6:48 AM CDT 07/21/2023 6:51 AM CDT Angelica MCDOWELL LAB - CHEMISTRY MELANIE FELIPE Performing Organization Address [facility] Co de Phone Number [facility] ([facility]) [address] [place] [address] * VITAMIN B6 (07/21/2023 6:48 AM CDT) Vitamin B6 64.1 20.0 - 125.0 nmol/L 07/24/2023 10:31 AM [facility] Comment: INTERPRETIVE INFORMATION: Vitamin B6 (Pyridoxal 5-Phosphate) Pyridoxal 5'-phosphate measured in a specimen collected following an 8-hour or overnight fast accurately indicates vitamin B6 nutritional status. Non-fasting specimen concentration reflects recent vitamin intake. This test was developed and its performance characteristics determined by Replaced by [facility]. It has not been cleared or approved by the US Food and Drug Administration. This test was performed in a CLIA certified laboratory and is intended for clinical purposes. Performed By: [place] [address] Board Handler: Angel Hill MD, PhD CLIA Number: [id number] Blood BLOOD SPECIMEN / Unknown Venipuncture / Unknown 07/21/2023 6:48 AM CDT 07/21/2023 6:51 AM CDT Angelica MCDOWELL LAB - CHEMISTRY MELANIE FELIPE Performing Organization Address [facility]/ZIP Co de Phone Number [facility]) [address] [place] [address] * CK BLOOD (07/21/2023 6:48 AM CDT) CK Total 134 30 - 200 U/L 07/21/2023 7:22 AM CDT [facility] Blood BLOOD SPECIMEN / Unknown Venipuncture / Unknown 07/21/2023 6:48 AM CDT 07/21/2023 6:54 AM CDT Angelica MCDOWELL LAB - CHEMISTRY MELANEI FELIPE [facility] [address] [place] [address], [facility] [phone] * (ABNORMAL) VITAMIN D 25-HYDROXY (07/21/2023 4:29 AM CDT) Vitamin D, 25 Hydroxy 26.0(L) 30.0 - 80.0 ng/mL 07/21/2023 7:29 AM CDT [facility] Comment: The recommendations for 25-Hydroxy Vitamin D [...] Angelica MCDOWELL LAB - CHEMISTRY MELANIE FELIPE [facility] Organization Address City/State/ZIP Co de Phone Number [facility] [address] [place] [address], [facility] [phone] * (ABNORMAL) HEPATIC FUNCTION PANEL (07/21/2023 4:29 AM CDT) Protein Total 7.4 6.0 - 8.3 g/dL 023 5:03 AM [facility] Albumin 2.2(L) 3.4 - 5.0 g/dL 07/21/2023 5:03 AM [facility] Bilirubin Total 1.5(H) 0.2 - 1.2 mg/dL 03/2023 5:03 AM [facility] Bilirubin Conjugated 0.9(H) 0.1 - 0.5 mg/dL 07/21/2023 5:03 AM [facility] Bilirubin Unconjugated 0.6 Unconjugated Bilirubin is a calculated value: Reference ranges have not been established. mg/dL 07/21/2023 5:03 AM [facility] Alkaline Phosphatase 357(H) 40 - 150 U/L 07/21/2023 5:03 AM [facility] ALT 392(H) 5 - 55 U/L 07/21/2023 5:03 AM [facility] AST 646(H) 5 - 34 U/L 07/21/2023 5:03 AM [facility] Albumin/Globulin Ratio 0.4(L) 1.1 - 2.3 07/21/2023 5:03 AM CDT [facility] Blood BLOOD SPECIMEN / Unknown Venipuncture / Unknown 07/21/2023 4:29 AM CDT 07/21/2023 4:33 AM CDT Janae Alexander HR SHARED SERVICES CONSULTANT-JOB BOSS LAB - CHEM ISTRY ORDERABLES Performing Organization Address City/[facility]/ZIP Co de Phone Number [address] [address], [facility] [phone] * FOLATE (07/21/2023 4:29 AM CDT) Folate 7.5 7.0 - 31.4 ng/mL 07/21/2023 7:29 AM CDT [facility] Blood BLOOD SPECIMEN / Unknown Venipuncture / Unknown 07/21/2023 4:29 AM CDT 07/21/2023 4:33 AM CDT Angelica MCDOWELL LAB - CHEMISTRY ORDE RABLES [address] [address], [place] [phone] * (ABNORMAL) PROCALCITONIN LEVEL (07/21/2023 4:24 AM CDT) PROCALCITONIN 5.50(H) <=0.10 ng/mL 07/21/2023 5:37 AM CDT [facility] Blood BLOOD SPECIMEN / Unknown Venipuncture / Unknown 07/21/2023 4:24 AM CDT 07/21/2023 4:31 AM CDT Narrative [facility] - 07/21/2023 5:37 AM CDT The [...] Change in Procalcitonin Calculator is available at [email or web address] If clinical picture has not improved and PCT remains high, reevaluate and consider treatment failure or other causes. Janae Alexander HR SHARED SERVICES CONSULTANT-JOB BOSS LAB - CHEM ISTRY ORDERABLES Performing Organization Address City/[facility]/ZIP Co de Phone Number [address] [address], [facility] [phone] * (ABNORMAL) C-REACTIVE PROTEIN (07/21/2023 4:24 AM CDT) C-Reactive Protein 6.0(H) <=0.5 mg/dL 07/21/2023 5:15 AM CDT [facility] Blood BLOOD SPECIMEN / Unknown Venipuncture / Unknown 07/21/2023 4:24 AM CDT 07/21/2023 4:31 AM CDT Janae Alexander HR SHARED SERVICES CONSULTANT-JOB BOSS LAB - CHEM ISTRY ORDERABLES Performing Organization Address [facility]/ZIP Co de Phone Number [address] [address], [facility] [phone] * MRI BRAIN WO CONTRAST (07/20/2023 6:53 PM CDT) Anatomical Region Laterality Modality Head Magnetic Resonan ce 07/21/2023 8:11 AM CDT Impressions 07/21/2023 8:26 AM CDT IMPRESSION: Unremarkable brain MRI performed without contrast. > Interpreting Provider: Darling Terry MD on 07/21/2023 8:26 AM Narrative 07/21/2023 8:26 AM CDT PROCEDURE: MRI BRAIN WO CONTRAST, DATE/TIME OF EXAM: 07/20/2023 6:53 PM, LOCATION [facility] INDICATION: R41.82: Altered mental status, unspecified [...] DATE/TIME OF EXAM: 07/20/2023 6:53 PM, LOCATION [facility] INDICATION: R41.82: Altered mental status, unspecified [...] MD on 07/21/2023 8:26 AM Ian Olvera HR SHARED SERVICES CONSULTANT-JOB BOSS MR ORDERABLES * BLOOD TYPE VERIFICATION (07/20/2023 3:40 PM CDT) ABO Rh O POS 07/20/2023 4:[address] [facility] BLOOD BANK LAB Blood Bank BLOOD SPECIMEN / Unknown 07/20/2023 3:40 PM CDT 07/20/2023 3:59 PM CDT Jayden Khan DO LAB - BLOOD BANK ORD ERABLES [facility] BLOOD BANK LAB [address] [place] [address], [facility] [phone] * VAS BILATERAL VENOUS DUPLEX LE (07/20/2023 3:13 PM CDT) Anatomical Region Laterality Modality Lower Extremity Intravascular Ul trasound 07/20/2023 2:05 PM CDT Narrative Procedure Note Homero Jerez MD - 07/22/2023 Ian Olvera HR SHARED SERVICES CONSULTANT-JOB BOSS VASCULAR LAB O RDERABLES * XR CHEST [...] MD on 07/20/2023 12:16 PM Savannah Piper HR SHARED SERVICES CONSULTANT-JOB BOSS DIAGNOSTIC IMAGING ORDERABLES * ECHO COMPLETE (07/20/2023 9:18 AM CDT) BSA [id number] m2 [facility]UJ I PACS LV [...] TR pk danica 283.8 cm/s [facility] CV [facility] I PACS P vein S/D ratio 1.10 [...] 9.9 5.9 - 8.3 cm [facility] RVIDd 4.4 cm [facility] I PACS RVOT VTI 19.315 cm [facility] I PACS TAPSE 2.259 1.7 cm [facility] I PACS RVOT pk danica 0.81 m/s [facility] CV F UJI PACS RA area 18.295 cm2 [facility] CV [facility] I PACS AV mn grad 9 mmHg [facility] CV FU JI PACS AV pk grad 19 mmHg [facility] CV FU JI PACS AV mn danica 1.39 m/s [facility] CV [facility] I PACS AV pk danica 2.17 m/s [facility] I PACS AV VTI 34.997 cm [facility] I PACS LVOT pk grad 12.665 mmHg [facility] LVOT VTI 32.548 cm [facility] I PACS AV area cont VTI 2.8 [...] grad 3 mmHg [facility] CV FUJI PACS FL pk danica 241.614 cm/s [facility] FUJ I PACS Ascending aorta 2.70 cm [facility] CV FUJI PACS IVC size 2.5 cm [facility] FUJ I PACS Max Age Predicted HR 183 [facility] CV FUJI PACS LA ESV A4C MOD Index 29 ml/m2 [facility]I PACS Target HR 156 [facility] CV FUJ I PACS [id number] 7.965 cm [facility] CV FUJ I PACS [id number] 7.63 cm [facility] CV FUJ I PACS [...] Nostenosis. Aortic Valve: Mild regurgitation. Ian Olvera HR SHARED SERVICES CONSULTANT-JOB BOSS ECHO CUPID * (ABNORMAL) LUPUS ANTICOAGULANT PANEL (07/20/2023 6:45 AM CDT) APTT 37.3 23.0 - 38.4 Seconds 07/21/2023 12:29 PM CDT [facility] PT 20.9(H) 12.1 - 14.8 Seconds 07/21/2023 12:29 PM CDT [facility] INR 1.8 See Comment 07/21/2023 12:29 PM CDT [facility] [place] Buffer 45.5 Seconds 023 12:29 PM T [facility] [place] Phospholipid 41.3 Seconds 07/21/2023 12:29 PM T [facility] [place] Delta 4.2 <8.0 Seconds 07/21/2023 12:29 PM T [facility] Interpretation [place] Negative 07/21/2023 12:29 PM T [facility] Comment:Up to 15-20% of elda ents with [...] CDT 07/20/2023 6:57 AM CDT Savannah Piper HR SHARED SERVICES CONSULTANT-JOB BOSS LAB - KRISTIAN TOLOGY ORDERABLES [facility] [address] [place] [address], [facility] [phone] * US ABDOMEN LTD W COMP DOPPLER [...] MD on 07/20/2023 3:08 PM Ian Olvera HR SHARED SERVICES CONSULTANT-JOB BOSS US ORDERABLES * (ABNORMAL) RESPIRATORY PANEL WITH SARS-COV-2 BY PCR (STL) (07/19/2023 11:10 AM CDT) Adenovirus PCR Not detected Not detected 07/19/2023 4:[address] [facility] Coronavirus 229E PCR Not detected Not detected 07/19/2023 4:[address] [facility] Coronavirus HKU1 PCR Not detected Not detected 07/19/2023 4:[address] [facility] Coronavirus NL63 PCR Not detected Not detected 07/19/2023 4:[address] [facility] Coronavirus OC43 PCR Not detected Not detected 07/19/2023 4:[address] [facility] COVID-19 PCR Not detected Not detected 07/19/2023 4:[address] [facility] Human Metapneumovirus PCR Not detected Not detected 07/19/2023 4:[address] [facility] Human Rhinovirus/Enterov irus PCR Detected(A) Not detected 07/19/2023 4:07 PM CDT [facility] Influenza A PCR Not detected Not detected 07/19/2023 4:07 PM CDT [facility] Influenza B PCR Not detected Not detected 07/19/2023 4:07 PM CDT [facility] Parainfluenza Virus 1 PCR Not detected Not detected 07/19/2023 4:07 PM CDT [facility] Parainfluenza Virus 2 PCR Not detected Not detected 07/19/2023 4:07 PM CDT [facility] Parainfluenza Virus 3 PCR Not detected Not detected 07/19/2023 4:07 PM CDT [facility] Parainfluenza Virus 4 PCR Not detected Not detected 07/19/2023 4:07 PM CDT [facility] Respiratory Syncytial Virus PCR Not detected Not detected 07/19/2023 4:07 PM CDT [facility] Bordetella parapertussis PCR Not detected Not detected 07/19/2023 4:07 PM CDT [facility] Bordetella pertussis PCR Not detected Not detected 07/19/2023 4:07 PM CDT [facility] Chlamydia pneumoniae PCR Not detected Not detected 07/19/2023 4:07 PM CDT [facility] Mycoplasma pneumoniae PCR Not detected Not detected 07/19/2023 4:07 PM CDT [facility] Microbiology SPECIMEN FROM NASOPHARYNGEAL STRUCTURE / Unknown Collection / Unknown 07/19/2023 11:10 AM CDT 07/19/2023 11:16 AM CDT Narrative [facility] - 07/19/2023 4:07 PM CDT Contact and Droplet Precautions Required. This nucleic amplification assay has received FDA authorization via the [employer]. Ian Olvera HR SHARED SERVICES CONSULTANT-JOB BOSS LAB - MICROBIO LOGY ORDERABLES [facility] [address] [place] [address], [facility] [phone] * MRSA DNA PCR (07/19/2023 11:10 AM CDT) [facility] MRSA DNA by PCR Not detected Not detected 07/19/2023 4:48 PM CDT [facility] Microbiology SPECIMEN FROM NASAL FOSSAE / Unknown Collection / Unknown 07/19/2023 11:10 AM CDT 07/19/2023 11:16 AM CDT Narrative [facility] - 07/19/2023 4:48 PM CDT Methicillin-resistant Staphylococcus aureus (MRSA) DNA is not detected (presumed not colonized with MRSA). Ian Olvera [facility] LAB - MICROBIO LOGY ORDERABLES Performing Organization Address City/[facility]/ZIP Co de Phone Number [facility] [address] [address], [facility] [phone] * CULTURE BLOOD (07/19/2023 9:55 AM CDT) Only the most recent of2 resultswithin the time period is included. Culture No growth day 5 XIOMARA 07/24/2023 2:00 PM CDT [facility] Blood PERIPHERAL BLOOD / Unknown Venipuncture / Unknown 07/19/2023 9:55 AM CDT 07/19/2023 10:00 AM CDT Ian Olvera [facility] LAB - MICROBIO LOGY ORDERABLES Performing Organization Address City/[facility]/ZIP Co de Phone Number [facility] [address] [address], [facility] [phone] * TRICYCLICS ANTIDEPRESSANT CONFIRMATION BLOOD, QUANTITIVE (07/19/2023 [...] AM CDT 07/19/2023 11:20 AM CDT Narrative [facility] - 07/21/2023 11:15 AM CDT Testing performed by Liquid Chromatography-Tandem Mass Spectrometry. This testing was developed by the [place] [employer] [facility] in keeping with CLIA requirements. The test has not been cleared or approved by the U.S. Food and Drug Administration. Ian Olvera APRNAkademos LAB - CHEMISTR Y ORDERABLES Performing Organization Address [facility] Co de Phone Number [facility] [address] [phone] * TRICYCLICS SCREEN BLOOD (07/19/2023 9:50 AM CDT) [facility] Tricyclic Antidepressants 86 80 - 200 ng/mL 07/19/2023 11:46 AM CDT [facility] Blood BLOOD SPECIMEN / Unknown Venipuncture / Unknown 07/19/2023 9:50 AM CDT 07/19/2023 9:55 AM CDT Narrative [facility] - 07/19/2023 11:46 AM CDT Confirmation quantitative [...] be used for following trends. Ian Olvera HR SHARED SERVICES CONSULTANTAkademos LAB - CHEMISTR Y ORDERABLES Performing Organization Address City/[facility] Co de Phone Number [address] [address], [facility] [phone] * OSMOLALITY BLOOD (07/19/2023 9:50 AM CDT) Osmolality 296 270 - 300 mOsm/kg 07/19/2023 11:41 AM CDT [facility] Blood BLOOD SPECIMEN / Unknown Venipuncture / Unknown 07/19/2023 9:50 AM CDT 07/19/2023 10:04 AM CDT Ian Olvera HR SHARED SERVICES CONSULTANT-JOB BOSS LAB - CHEMISTR Y ORDERABLES Performing Organization Address [facility] Co de Phone Number [address] [address], [facility] [phone] * LACTIC ACID BLOOD (07/19/2023 9:50 AM CDT) Lactic Acid-Stat 1.0 <=2.0 mmol/L 07/19/2023 10:26 AM CDT [facility] Blood BLOOD SPECIMEN / Unknown Venipuncture / Unknown 07/19/2023 9:50 AM CDT 07/19/2023 10:04 AM CDT aIn Olvera APRN-JOB BOSS LAB - CHEMISTR Y ORDERABLES Performing Organization Address [facility] Co de Phone Number [address] [address], [facility] [phone] * (ABNORMAL) VITAMIN B12 (07/19/2023 9:50 AM CDT) Vitamin B12 >2,000(H) 213 - 816 pg/mL 07/19/2023 10:58 AM CDT [facility] Blood BLOOD SPECIMEN / Unknown Venipuncture / Unknown 07/19/2023 9:50 AM CDT 07/19/2023 10:05 AM CDT Ian Olvera HR SHARED SERVICES CONSULTANT-JOB BOSS LAB - CHEMISTR Y ORDERABLES [address] [address], [facility] [phone] * AMMONIA (07/19/2023 9:50 AM CDT) Ammonia 32 <=72 umol/L 07/19/2023 10:43 AM CDT [facility] Blood BLOOD SPECIMEN / Unknown Venipuncture / Unknown 07/19/2023 9:50 AM CDT 07/19/2023 10:05 AM CDT Ian Nayelideb HR SHARED SERVICES CONSULTANT-JOB BOSS LAB - CHEMISTR Y ORDERABLES Performing Organization Address [facility] Co de Phone Number [address] [address], [facility] [phone] * ALCOHOL ETHYL BLOOD (07/19/2023 9:50 AM CDT) Ethanol (mg/dL) <10 <=10 mg/dL 10:29 AM CDT [facility] Ethanol Calculated (g/dL) <0.010 <0.010 g/dL 07/19/2023 10:29 AM CDT [facility] Blood BLOOD SPECIMEN / Unknown Venipuncture / Unknown 07/19/2023 9:50 AM CDT 07/19/2023 10:04 AM CDT Narrative [facility] - 07/19/2023 10:29 AM CDT Ethanol Interp <10: None Detected. Depression of PUBLICATIONS WRITER: >100 mg/dl Potentially Critical: >250 mg/dl Potentially Fatal >400 mg/dl Ethanol in the patient's blood will contribute to the osmolar gap. Ethanol's contribution to the osmolar gap can be estimated by dividing the concentration of ethanol in mg/dL by 4.6. This test is for clinical use only and does not equal a NEREYDA for legal purposes. Ian Nayelideb HR SHARED SERVICES CONSULTANT-JOB BOSS LAB - CHEMISTR Y ORDERABLES Performing Organization Address City/[facility]/ZIP Co de Phone Number [address] [address], [facility] [phone] * (ABNORMAL) SALICYLATE LEVEL BLOOD (07/19/2023 9:50 AM CDT) Salicylate <5(L) 15 - 30 mg/dL 07/19/2023 10:29 AM CDT [facility] Blood BLOOD SPECIMEN / Unknown Venipuncture / Unknown 07/19/2023 9:50 AM CDT 07/19/2023 10:04 AM CDT Narrative [facility] - 07/19/2023 10:29 AM CDT This test is not intended for use with low-dose aspirin therapy. Most patients on low-dose aspirin for cardiovascular prophylaxis will have serum concentrations near or below the lower limit of the analytical range. Ian Olvera HR SHARED SERVICES CONSULTANT-JOB BOSS LAB - CHEMISTR Y ORDERABLES Performing Organization Address City/State/[facility] Co de Phone Number [address] [address], [facility] [phone] * ACETAMINOPHEN LEVEL (07/19/2023 9:50 AM CDT) Acetaminophen <3.0 <3.0 ug/mL 07/19/2023 10:29 AM CDT [facility] Blood BLOOD SPECIMEN / Unknown Venipuncture / Unknown 07/19/2023 9:50 AM CDT 07/19/2023 10:04 AM CDT Narrative [facility] - 07/19/2023 10:29 AM CDT Acetaminophen Toxicity [...] may alter the peak level. Contact the [facility] at or reserved for healthcare professionals to assist you in evaluating potentially toxic acetaminophen levels. Ian Bragg HR SHARED SERVICES CONSULTANT-JOB BOSS LAB - CHEMISTR Y ORDERABLES [address] [address], [facility] [phone] * TSH REFLEX FREE T4 (07/19/2023 3:50 AM CDT) TSH 2.049 0.350 - 4.940 uIU/mL 07/19/2023 8:[address] [facility] Blood BLOOD SPECIMEN / Unknown Venipuncture / Unknown 07/19/2023 3:50 AM CDT 07/19/2023 4:10 AM CDT [facility]ullivan[facility]-J[facility] BOSS LAB - CHEMISTR Y ORDERABLES Performing Organization Address City/[facility]/ZIP Co de Phone Number [address] [address], [facility] [phone] * (ABNORMAL) HEMOGLOBIN A1C (07/19/2023 3:50 AM CDT) Hemoglobin A1c 9.2(H) <=5.6 % 07/19/2023 1:[address] [facility] Estimated Average Glucose 217 mg/dL 07/19/2023 1:[address] [facility] Comment: HbA1c Interpretation: Normal : < 5.7% Pre-diabetes: 5.7-6.4% Diabetes: Equal to or greater than 6.5% Test results diagnostic of diabetes should be repeated for confirmation. Treatment target values recommended by ADA and other clinical organizations should be used to evaluate metabolic control in patients. Reference: [place] [employer], Standards of Care in Diabetes -2020 In patients 70 years and older consider HbA1c target range of 7.0-7.5% (Reference: Rene Pacheco et al. JAMDA. 2012) The Sebia assay for the measurement of HbA1c is a National Glycohemoglobin Standardization Program (NGSP) certified method. Blood BLOOD SPECIMEN / Unknown Venipuncture / Unknown 07/19/2023 3:50 AM CDT 07/19/2023 4:04 AM CDT Janae Esvin Alexander APRN-JOB BOSS LAB - CHEM ISTRY ORDERABLES Performing Organization Address [facility]/ZIP Co de Phone Number [address] [address], [facility] [phone] * (ABNORMAL) HEPATITIS B SURFACE ANTIBODY (07/19/2023 3:50 AM CDT) Hepatitis B Virus Surface Antibody Reactive( A) Non-react jacquelin 07/19/2023 4:51 AM CDT [facility] Comment: > 12 mIU/mL Hepatitis B surface Antibody (HBsAb). Reactive for HBsAb - individual is considered immune to Hepatitis B Virus infection. Hepatitis B Surface Antibody Quantitative 500.9(H) <8.0 mIU/mL 07/19/2023 4:51 AM CDT [facility] Comment: Hepatitis B Surface Antibody Numeric Result Interpretation: Nonreactive: <8.0 mIU/mL Indeterminate: 8.0 - 12.0 mIU/mL Reactive: >12.0 mIU/mL Blood BLOOD SPECIMEN / Unknown Venipuncture / Unknown 07/19/2023 3:50 AM CDT 07/19/2023 4:04 AM CDT Hang Pearce MD LAB - CH EMISTRY ORDERABLES Performing Organization Address [facility]/ZIP Co de Phone Number [address] [address], [facility] [phone] * HEPATITIS B SURFACE ANTIGEN W RFLX CONFIRMATION (07/19/2023 3:50 AM CDT) Hepatitis B Virus Surface Antigen Non-reacti ve Non-reacti ve 07/19/2023 4:51 AM CDT [facility] Blood BLOOD SPECIMEN / Unknown Venipuncture / Unknown 07/19/2023 3:50 AM CDT 07/19/2023 4:04 AM CDT Hang Pearce MD LAB - CH EMISTRY ORDERABLES Performing Organization Address City/[facility]/ZIP Co de Phone Number [facility] [address] [place] [address], [facility] [phone] * HEPATITIS SCREEN ACUTE (07/19/2023 3:50 AM CDT) Pathologist [facility] Hepatitis A Virus Antibody IgM Non-react jacquelin Non-reac tive 07/19/2023 9:52 AM CDT [facility] Hepatitis B Virus Surface Antigen Non-react jacquelin Non-reac tive 07/19/2023 9:52 AM CDT [facility] Hepatitis B Core Virus Antibody IgM Non-react jacquelin Non-reac tive 07/19/2023 9:52 AM CDT [facility] Hepatitis C Antibody Non-react jacquelin Non-reac tive 07/19/2023 9:52 AM CDT [facility] Comment:Hepatitis C Antibody screen indicates no [...] CDT 07/19/2023 4:04 AM CDT Ian Olvera HR SHARED SERVICES CONSULTANT-JOB BOSS LAB - CHEMISTR Y ORDERABLES Performing Organization Address City/[facility]/ZIP Co de Phone Number [address] [address], [facility] [phone] * SARS-COV-2 (COVID-19) FLU A/B RSV PCR RAPID (07/18/2023 11:44 PM CDT) [facility] COVID-19 PCR Not detected Not detected 07/19/20 12:39 AM CDT [facility] Influenza A PCR Not detected Not detected 07/19/2023 12:39 AM CDT [facility] Influenza B PCR Not detected Not detected 07/19/2023 12:39 AM CDT [facility] RSV PCR Not detected Not detected 07/19/2023 12:[address] [facility] Microbiology SPECIMEN FROM NASOPHARYNGEAL STRUCTURE / Unknown Collection / Unknown 07/18/2023 11:44 PM CDT 07/18/2023 11:52 PM CDT Narrative [facility] - 07/19/2023 12:39 AM CDT This nucleic [...] - MICROBIOLOGY O RDERABLES Performing Organization Address City/[facility]/ZIP Co de Phone Number [address] [address], [place] [phone] * LACTIC ACID BLOOD REFLEX TO REPEAT (07/18/2023 11:44 PM CDT) Lactic Acid-Stat 1.9 <=2.0 mmol/L 07/19/2023 12:24 AM CDT [facility] Blood BLOOD SPECIMEN / Unknown Venipuncture / Unknown 07/18/2023 11:44 PM CDT 07/19/2023 12:00 AM CDT Vicki Anderson MD LAB - CHEMISTRY ORDE RABLES [address] [address], [place] [phone] * CT HEAD WO CONTRAST (07/18/2023 11:35 [...] DATE/TIME OF EXAM: 07/18/2023 11:36 PM, LOCATION: [facility] HISTORY: R41.82: Altered mental status, unspecified [...] DATE/TIME OF EXAM: 07/18/2023 11:36 PM, LOCATION: [facility] HISTORY: R41.82: Altered mental status, unspecified [...] REFLEX 1HOUR (07/18/2023 10:13 PM CDT) Pathologist [facility] Troponin I High Sensitive 87(H) <=14 ng/L 07/18/2023 11:25 PM CDT [facility] Delta Troponin I HS 07/18/2023 11:25 PM CDT [facility] Comment:Delta value intentio dunia not calculated. Baseline to 1 hour specimen collection interval exceeded. Blood BLOOD SPECIMEN / Unknown Venipuncture / Unknown 07/18/2023 10:13 PM CDT 07/18/2023 10:25 PM CDT Hai Mukherjee PA-C LAB - CHEM ISTRY ORDERABLES [facility] [address] [place] [address], [facility] [phone] * (ABNORMAL) BLOOD GASES BRANDIN + COOX PANEL (07/18/2023 10:13 PM CDT) pH Venous 7.38 7.32 - 7.42 pH 07/18/2023 10:[address] [facility] pO2 Venous 63(H) 35 - 40 mmHg 07/18/2023 10:25 PM [facility] pCO2 Venous 42 40 - 50 mmHg 07/18/2023 10:25 PM [facility] HCO3 Venous 24.8 20 - 30 mmol/L 07/18/2023 10:25 PM [facility] Base Excess Venous -0.4 -2.0 - 2.0 mmol/L 07/18/2023 10:25 PM [facility] Oxyhemoglobin Venous 87.4 % 12/2022 10:25 PM [facility] Deoxyhemoglobin (HHB) Venous % 8.7 % 07/18/2023 10:25 PM [facility] Methemoglobin <0.8 0.0 - 2.0 % 07/18/2023 10:25 PM [facility] Carboxyhemoglobin 3.3(H) 0.0 - 2.0 % 2022 10:25 PM [facility] O2 Content Venous 11.4 Interpret within clinical context ml/dL 07/18/2023 10:25 PM [facility] Hemoglobin by COOX 9.2(L) 12.0 - 15.6 g/dL 07/18/2023 10:25 PM [facility] O2 Saturation Venous 91 >=70 % 12/2022 10:25 PM [facility] FI O2 Mixed Venous 32.0 % 2022 10:25 PM [facility] Blood BLOOD SPECIMEN / Unknown Venipuncture / Unknown 07/18/2023 10:13 PM T 07/18/2023 10:18 PM [facility] - 07/18/2023 10:[address] [facility] Carboxyhemoglobin Normal Concentration: Non-smokers: 0-2%; Smokers: 0-9%; Toxic: >20% Vicki Anderson MD LAB - BLOOD GASES OR DERABLES [facility] [address] [place] [address], [facility] [phone] * XR CHEST 2VW (07/18/2023 8:53 PM CDT) Anatomical Region Laterality Modality Chest Radiographic Carmen ging 07/18/2023 8:54 PM CDT Narrative 07/19/2023 8:48 AM CDT PROCEDURE: XR CHEST 2VW, DATE/TIME OF EXAM: 07/18/2023 8:54 PM, LOCATION [facility] INDICATION: R06.02: SOB (shortness of breath) [...] Report dictated by Pepe Borrero MD, MD (vice president consulting services). Hill Lima MD have personally reviewed and interpreted this examination/study. > Interpreting Provider: Hill Reynolds MD on 07/19/2023 8:48 AM Procedure Note Hill Reynolds MD - 07/19/2023 PROCEDURE: XR CHEST 2VW, DATE/TIME OF EXAM: 07/18/2023 8:54 PM, LOCATION [facility] INDICATION: R06.02: SOB (shortness of breath) [...] intact. Report dictated by Pepe Borrero MD, (vice president consulting services). Hill Lima MD have personally reviewed and interpreted this examination/study. > Interpreting Provider: Hill Reynolds MD on 07/19/2023 8:48AM Hai Mukherjee PA-C DIAGNOSTIC IMAGING ORDERABLES * (ABNORMAL) TROPONIN-I HIGH SENSITIVE BASELINE + 1HR (07/18/2023 8:38 PM CDT) Pathologist [facility] Troponin I High Sensitive 122(H) <=14 ng/L 07/18/2023 9:21 PM CDT [facility] Blood BLOOD SPECIMEN / Unknown Venipuncture / Unknown 07/18/2023 8:38 PM CDT 07/18/2023 8:47 PM CDT Hai Mukherjee PA-C LAB - CHEM ISTRY ORDERABLES Performing Organization Address City/[facility]/ZIP Co de Phone Number [address] [address], [facility] [phone] * (ABNORMAL) B-TYPE NATRIURETIC PEPTIDE (07/18/2023 8:38 PM CDT) Pathologist [facility] BNP 2,653(H) <100 pg/mL 07/18/2023 9:20 PM CDT [facility] Comment: A decision threshold of 100 pg/mL [...] Mukherjee PA-C LAB - CHEM ISTRY ORDERABLES [address] [address], [facility] [phone] * XR ABD OBSTR SERIES (12/04/2017 12:50 PM HAZMAT CDL DRIVER) Anatomical Region Laterality Modality Abdomen Radiographic Carmen ging 12/04/2017 1:31 PM HAZMAT CDL DRIVER Narrative 12/04/2017 1:32 PM HAZMAT CDL DRIVER Exam: Supine and upright AP views of [...] MICROSCOPIC ONLY W/REFLEX CULTURE (12/04/2017 12:38 PM HAZMAT CDL DRIVER) Reflex Status Culture not indicated 12/04/2017 1:04 PM HAZMAT CDL DRIVER [facility] RBC UA 0-5 0-5, None Seen # /hpf 12/04/2017 1:04 PM HAZMAT CDL DRIVER [facility] WBC UA 0-5 0-5, None Seen # /hpf 12/04/2017 1:04 PM HAZMAT CDL DRIVER [facility] Bacteria UA Trace(A) None Seen 12/04/2017 1:04 PM HAZMAT CDL DRIVER [facility] Squamous Epithelial Cells 0-2 None Seen, 0-2, 3-5 /hpf 12/04/2017 1:04 PM HAZMAT CDL DRIVER [facility] Mucus UA 1+ /LPF 12/04/2017 1:04 PM HAZMAT CDL DRIVER [facility] Hyaline Casts 3-5(A) None Seen, 0-2 # /lpf 12/04/2017 1:04 PM HAZMAT CDL DRIVER [facility] Urine URINE SPECIMEN OBTAINED BY CLEAN CATCH PROCEDURE / Unknown Collection / Unknown 12/04/2017 12:38 PM HAZMAT CDL DRIVER 12/04/2017 12:43 PM HAZMAT CDL DRIVER Narrative [facility] - 12/04/2017 1:04 PM HAZMAT CDL DRIVER Stan Miller MD LAB - URINALYSIS ORD ERABLES Performing Organization Address [facility]/ZIP Co de Phone Number [facility] [address] [place] [address] * (ABNORMAL) URINALYSIS ROUTINE W/REFLEX TO CULTURE (12/04/2017 12:38 PM HAZMAT CDL DRIVER) Color UA Yellow Straw, Yellow 12/04/2017 12:55 PM HAZMAT CDL DRIVER [facility] Clarity UA Clear Clear 12/04/2017 12:55 PM HAZMAT CDL DRIVER [facility] Glucose UA 2+(A) Negative 12/04/2017 12:55 PM HAZMAT CDL DRIVER [facility] Bilirubin UA Negative Negative 12/04/2017 12:55 PM HAZMAT CDL DRIVER [facility] Ketone UA 1+(A) Negative 12/04/2017 12:55 PM [facility] Specific [place] UA 1.015 1.005 - 1.030 12/04/2017 12:55 PM HAZMAT CDL DRIVER [facility] Blood UA Negative Negative 12/04/2017 12:55 PM HAZMAT CDL DRIVER [facility] pH UA 6.0 5.0 - 8.0 pH 12/04/2017 12:55 PM HAZMAT CDL DRIVER [facility] Protein UA 3+(A) Negative 12/04/2017 12:55 PM HAZMAT CDL DRIVER [facility] Urobilinogen UA Negative Negative mg/dL 12/04/2017 12:55 PM HAZMAT CDL DRIVER [facility] Nitrite UA Negative Negative 12/04/2017 12:55 PM HAZMAT CDL DRIVER [facility] Leukocyte UA Negative Negative 12/04/2017 12:55 PM HAZMAT CDL DRIVER [facility] Urine Microscopy Urine microscopy to follow 12/04/2017 12:55 PM [facility] Reflex Status Culture not indicated 12/04/2017 12:55 PM HAZMAT CDL DRIVER [facility] Urine URINE SPECIMEN OBTAINED BY CLEAN CATCH PROCEDURE / Unknown Collection / Unknown 12/04/2017 12:38 PM HAZMAT CDL DRIVER 12/04/2017 12:43 PM HAZMAT CDL DRIVER Narrative [facility] - 12/04/2017 12:55 PM HAZMAT CDL DRIVER Stan Miller MD LAB - URINALYSIS ORD ERABLES Performing Organization Address [facility]/ZIP Co de Phone Number [facility] [address] [place] [address] * (ABNORMAL) LIPASE BLOOD (12/04/2017 11:01 AM HAZMAT CDL DRIVER) Only the most recent of2 resultswithin the time period is included. Lipase 62(L) 73 - 393 U/L 12/04/2017 11:24 AM HAZMAT CDL DRIVER [facility] Blood BLOOD SPECIMEN / Unknown Venipuncture / Unknown 12/04/2017 11:01 AM HAZMAT CDL DRIVER 12/04/2017 11:04 AM HAZMAT CDL DRIVER Elif Mcneill PA-C LAB - CHEMISTRY ORD ERABLES [facility] [address] [place] [address] Care Teams Electric Container Tester Relationship Specialty [place] [address] [address] [facility] [place] [address] PCP - General Internal Medicine 12/04/17
[2025-01-10] MEDS: FAMOTIDINE 20 MG/2 ML VIAL IV PUSH (01:16)
[2025-01-10] MEDS: diphenhydrAMINE HCl INJ 50 MG/ML VIAL 25 MG IV PUSH (01:16)
[2025-01-10] MEDS: METOCLOPRAMIDE HCL INJ 10 MG/2 ML VIAL IV PUSH (01:17)
== END 2025-01-10 02:13 | disposition home or self-care (01) ==
PROVIDERS: Physician Assistant; Emergency Provider Physician Assistant
DX: J18.9 Pneumonia, unspecified organism (principal); N18.6 End stage renal disease; I13.2 Hypertensive heart and chronic kidney disease with heart failure and with stage 5 chronic kidney disease, or end stage renal disease; I50.9 Heart failure, unspecified; E10.22 Type 1 diabetes mellitus with diabetic chronic kidney disease; Z99.2 Dependence on renal dialysis; E10.43 Type 1 diabetes mellitus with diabetic autonomic (poly)neuropathy; K31.84 Gastroparesis; E10.42 Type 1 diabetes mellitus with diabetic polyneuropathy; J45.909 Unspecified asthma, uncomplicated; K21.9 Gastro-esophageal reflux disease without esophagitis; F17.210 Nicotine dependence, cigarettes, uncomplicated; Z87.11 Personal history of peptic ulcer disease; Z86.2 Personal history of diseases of the blood and blood-forming organs and certain disorders involving the immune mechanism; Z90.49 Acquired absence of other specified parts of digestive tract; Z79.4 Long term (current) use of insulin; Z79.899 Other long term (current) drug therapy
CPT/HCPCS: 36415; 74176; 80053; 83690; 83735; 84702; 85025; 96374; 96375; 99284; J1200; J2765

== ENCOUNTER 2025-05-03 10:44 | Inpatient (IN) | payer MEDICARE, MEDICAID, SELFPAY ==
[2025-05-03] VITALS (32 sets, daily range): BP systolic 133–226; BP diastolic 62–110; PULSE 89–104; RESP 16–24; TEMP 36.4–37.1; O2SAT 79–100; BMI 32.5
--- NOTE | ~2025-05-03 | CT_ITS ---
History: Vertigo, weakness PROCEDURE: CT head without contrast. COMPARISON: None TECHNIQUE: Axial imaging of the head performed from the skull base to the vertex without IV contrast. Sagittal a nd coronal reformations obtained. DLP: 605 mGy-cm FINDINGS: The ventricles are normal in size, shape and position. There is no mass, mass effect or midline shift. There is no abnormal extra-axial fluid collection or intracranial hemorrhage. Visualized paranasal sinuses are clear. The mastoid air cells are well aerated. No acute displaced fractures within the overlying cranium. Impression: No acute intracranial hemorrhage or suspicious mass effect. Reviewed, dictated and finalized at location A. Impression: No acute intracranial hemorrhage or suspicious mass effect.
--- NOTE | ~2025-05-03 | XR_ITS ---
EXAMINATION: XR chest 1V portable DATE: 05/03/2025 11:59 INDICATION: Vomiting TECHNIQUE: frontal view of the chest was obtained. COMPARISON: Chest radiograph dated 03/17/2024 FINDINGS: Lung volumes remain small with mild eventration along the right hemidiaphragm. Increased groundglass opacities throughout both lungs relatively sparing the apices with slightly more dense opacities in t he infrahilar aspect of the lower lung zones. No pleural effusion or pneumothorax cardiomediastinal s ilhouette is within normal limits for AP technique. Visualized bones and soft tissues are unremarkabl e. IMPRESSION: 1. Increasing groundglass opacities in the bilateral lungs which could represent pulmonary edema, pne umonia or atelectasis. Reviewed, dictated and finalized at location A. IMPRESSION: 1. Increasing groundglass opacities in the bilateral lungs which could represen t pulmonary edema, pneumonia or atelectasis.
--- NOTE | ~2025-05-03 | XR_ITS ---
EXAMINATION: XR abdomen gastric tube insert DATE: 05/03/2025 12:58 INDICATION: Nasogastric tube placement TECHNIQUE: A supine view of the abdomen and lower chest was obtained for evaluation of feeding tube placement. COMPARISON: Chest radiograph dated 05/03/2025 FINDINGS: Interval placement of a nasogastric tube with distal tip in proximal side port in the body of the sto mach. There is a relative paucity of bowel gas in the visualized abdomen. Groundglass opacities and i ncreased initial pattern in the bilateral mid to lower lung zones. Heart size is within normal limits for AP technique. IMPRESSION: 1. Nasogastric tube in stomach. 2. Diffuse bilateral interstitial and airspace opacities in the mid to lower lungs and favor mild pul monary edema over pneumonia. Reviewed, dictated and finalized at location A. IMPRESSION: 1. Nasogastric tube in stomach. 2. Diffuse bilateral interstitial and airspace opacities in the mid to lower sarah ngs and favor mild pulmonary edema over pneumonia.
--- NOTE | ~2025-05-03 | MR_ITS ---
EXAMINATION: MR brain/brain stem wo con DATE: 05/04/2025 09:21 INDICATION: Blurry vision and arm weakness TECHNIQUE: Magnetic resonance imaging (MRI) of the brain and brainstem was performed without intraven ous contrast. Sequences included sagittal and axial T1-weighted SE, axial diffusion-weighted FS SE, a xial T2*-weighted GRE, axial T2-weighted FLAIR, and axial T2-weighted FSE. Apparent diffusion coeffic ient (ADC) maps were created. COMPARISON: Head CT dated 05/03/2025 FINDINGS: There are no areas of restricted diffusion to suggest acute infarction. No intracranial hemorrhage or abnormal intracranial mass lesion. Single small focus of nonspecific white matter T2 hyperintensity in the ventricular right frontal lobe which is within normal limits. There are no intraparenchymal si gnal abnormalities seen on the other pulse sequences. The ventricles are symmetric and normal in size . There are no abnormal extra-axial fluid collections. Flow voids are seen in the cerebral arteries o n the T2-weighted sequences consistent with their expected patency. Visualized orbits and soft tissue s are unremarkable. IMPRESSION: 1. Normal for age brain MR. No acute intracranial process. Reviewed, dictated and finalized at location A.
[2025-05-03 11:25] LABS: Basophils Percent Auto 0.6 % (0.2-1.2); Eosinophils Absolute Auto 0.3 K/mm3 (0-0.3); Eosinophils Percent Auto 4.1 % (0-4.4); Immature Granulocyte Absolute 0.03 K/mm3 (0.00-0.031); Immature Granulocyte Percent A 0.5 % (0-0.5); Lymphocytes Absolute Auto 0.92 K/mm3 (0.9-3.2); Lymphocytes Percent Auto 14.4 % (18.3-44.2); Mean Corpuscular HGB Conc 32.4 g/dl (32-36); Mean Corpuscular Hemoglobin 29.9 pg (26-34); Mean Platelet Volume 10.2 fl (7.4-10.4); Monocytes Absolute Auto 0.2 K/mm3 (0.1-0.6); Monocytes Percent Auto 3.8 % (2.6-8.5); Neutrophils Absolute Auto 4.9 K/mm3 (1.3-6.7); Neutrophils Percent Auto 76.6 % (45.5-73.1); Platelet Count Result 152 k/mm3 (150-375); Red Blood Count 2.01 M/mm3 (4.2-5.4); Red Cell Distribution Width 14.8 % (11.5-14.5); White Blood Count 6.4 K/mm3 (4.5-10.0)
--- NOTE | 2025-05-03 11:26 | ED.GENADULT ---
HPI - General Adult General Chief complaint: GI Bleed Stated complaint: hematemesis Time Seen by Provider: 05/03/25 11:05 History of Present Illness HPI narrative: Patient is a 39-year-old female who presents ER with concerns for GI bleed. Has history of bleeding gastric ulcer in the past. Started having dark black stool today and also vomited coffee-ground emesis. She is not on blood thinning medication. She reports she takes ibuprofen the morning and then Advil p.m. at night. Patient has history of end-stage renal disease. She has not had dialysis since 04/27/25. No chest pain or shortness of breath. Has history of anemia and gets iron transfusions during her dialysis. She has recently moved down here from [facility]. Reports 2 hospitalizations in last month, 1 for C diff but she is no longer having those types of bowel movements. Related Data Home Medications ?Medication ?Instructions ?Recorded ?Confirmed ?Last Taken ?Type amlodipine 10 mg tablet 10 mg PO DAILY 03/21/24 05/09/24 04/05/24 History atorvastatin 10 mg tablet 10 mg PO DAILY 03/21/24 05/09/24 Unknown History carvedilol 25 mg tablet 25 mg PO BID 03/21/24 05/09/24 04/05/24 History gabapentin 400 mg capsule 400 mg PO TID 03/21/24 05/09/24 Unknown History losartan 100 mg tablet 100 mg PO DAILY 03/21/24 05/09/24 04/05/24 History pantoprazole 40 mg tablet,delayed 40 mg PO DAILY 03/21/24 05/09/24 Unknown History release calcium acetate(phosphat bind) 667 1,334 mg PO TID 03/22/24 05/09/24 Unknown History mg capsule Allergies Allergy/AdvReac Type Severity Reaction Status Date / Time No Known Allergies Allergy Verified 09/20/24 08:28 Review of Systems Review of Systems: All systems reviewed & are unremarkable except as noted in HPI and below Constitutional: Constitutional: Reports no additional constitutional complaints Cardiovascular: Cardiovascular: Reports no additional cardiovascular complaints Respiratory: Respiratory: Reports no additional respiratory complaints Gastrointestinal: Gastrointestinal: Reports no additional gastrointestinal complaints Genitourinary: Genitourinary: Reports no additional female genitourinary complaints COUNTS INCLUDE 234 BEDS AT THE [facility] Past Medical History Medical History (Updated 05/03/25 @ 13:33 by Isrrael Ogden MD) Gastroparesis CHF (congestive heart failure) Anemia Reactive airway disease PUD (peptic ulcer disease) Peripheral neuropathy GERD (gastroesophageal reflux disease) Hypertension Cannabis use disorder Type 1 diabetes Arteriovenous fistula for hemodialysis in place, primary End stage renal disease on dialysis Surgical History Surgical History (Updated 05/05/24 @ 14:29 by Shruthi Melton RN) Hx laparoscopic cholecystectomy lap robina, Da Robin assisted 04/05/24 S/P arteriovenous (AV) fistula creation History of appendectomy Family History Family History Father No problems noted. Social History Social History Smoking packs per day: 0.5 Smoking cigarettes per day: 10.0 Years smoked: 22 Smoking pack-years: 11.00 Smoking status: Current every day smoker Tobacco type: cigarettes Alcohol intake: never Drinks per week: 0 Substance use: current Substance use type: marijuana Other substance usage details: not very often Last use: February Do You Feel Safe in your Home?: Yes Lack of Transportation: YES Lack of Food: Never True Current Housing: I Have Housing Concerned About Future Housing: No Difficulty Paying Gas/Electric Bills: No Difficulty Paying for Meds: No Currently Unemployed: No Education: High School Diploma/GED Difficulty w/ Childcare or Family Care: No Living arrangements: with family Spiritual care concerns: No Exam Narrative: GENERAL: Chronically ill-appearing, well-nourished, and in no acute distress. HEAD: Normocephalic, atraumatic. ENT: Mucous membranes moist. NECK: Supple. CHEST: Clear to auscultation. No respiratory distress. HEART: Regular rate and rhythm. Normal peripheral pulses. ABDOMEN: Soft, nontender, nondistended. Dark watery stool that is Hemoccult positive. No gross blood. EXTREMITIES: Normal range of motion. No edema. SKIN: Warm, dry, no rash. NEURO: Alert and oriented x3. PSYCH: Normal mood and affect. Course Course Emergency Course: Patient informed of lab results and treatment plan. Verbalized understanding. Nephrology consulted for dialysis. Discussed medical treatment of hyperkalemia. Also discussed with GI and patient will receive IV Protonix. NG tube placed and patient has coffee-ground output but no gross blood. Patient will be transfused. Vital Signs Vital signs: Vital Signs Temperature 97.6 F 05/03/25 11:02 Pulse Rate 95 05/03/25 11:02 Respiratory Rate 20 05/03/25 11:02 Blood Pressure 181/85 H 05/03/25 11:02 Pulse Oximetry 92 05/03/25 11:02 Oxygen Delivery Room Air 05/03/25 11:02 Temperature 98.4 F 05/03/25 13:23 Pulse Rate 99 05/03/25 13:23 Respiratory Rate 22 H 05/03/25 13:23 Blood Pressure 188/88 H 05/03/25 13:23 Pulse Oximetry 91 05/03/25 13:23 Oxygen Delivery Nasal Cannula 05/03/25 12:15 Oxygen Flow Rate 4 05/03/25 12:15 Medical Decision Making Vital Signs Vital Signs: Vital Signs Temperature 97.6 F 05/03/25 11:02 Pulse Rate 95 05/03/25 11:02 Respiratory Rate 20 05/03/25 11:02 Blood Pressure 181/85 H 05/03/25 11:02 Pulse Oximetry 92 05/03/25 11:02 Oxygen Delivery Room Air 05/03/25 11:02 Temperature 98.4 F 05/03/25 13:23 Pulse Rate 99 05/03/25 13:23 Respiratory Rate 22 H 05/03/25 13:23 Blood Pressure 188/88 H 05/03/25 13:23 Pulse Oximetry 91 05/03/25 13:23 Oxygen Delivery Nasal Cannula 05/03/25 12:15 Oxygen Flow Rate 4 05/03/25 12:15 Lab Data Lab results narrative: Lab Results 05/03/25 05/03/25 Range/Units 11:13 11:54 WBC 6.4 (4.5-10.0) K/mm3 RBC 2.01 L (4.2-5.4) M/mm3 Hgb 6.0 L* D (12.0-15.0) g/dL Hct 18.5 L* (37.0-47.0) % MCV 92.0 (80-100) fl MCH 29.9 (26-34) pg MCHC 32.4 (32-36) g/dl RDW 14.8 H (11.5-14.5) % Plt Count 152 (150-375) k/mm3 MPV 10.2 (7.4-10.4) fl Immature Gran % (Auto) 0.5 (0-0.5) % Neut % (Auto) 76.6 H (45.5-73.1) % Lymph % (Auto) 14.4 L (18.3-44.2) % Davison % (Auto) 3.8 (2.6-8.5) % Eos % (Auto) 4.1 (0-4.4) % Baso % (Auto) 0.6 (0.2-1.2) % Lymph # (Auto) 0.92 (0.9-3.2) K/mm3 Davison # (Auto) 0.2 (0.1-0.6) K/mm3 Eos # (Auto) 0.3 (0-0.3) K/mm3 Baso # (Auto) 0.0 (0.0-0.1) K/mm3 Abs Immat Gran (auto) 0.03 (0.00-0.031) K/mm3 Absolute Neuts (auto) 4.9 (1.3-6.7) K/mm3 Absolute Nucleated RBC 0.000 (0.0-0.012) K/mm3 Nucleated RBC % 0.0 (0.0-0.2) % Absolute Retic 0.04 (0.02-0.10) 10^6/uL Percent Retic 1.83 (0.7-4.3) % Immature Retic Fraction 16.0 H (3.0-15.9) % Retic Hgb Content 31.2 (28.2-36.6) pg PT 15.1 H (11.1-14.7) Seconds INR 1.2 APTT 30.5 (22.3-36.8) Seconds Sodium 139 (137-145) mmol/L Potassium 6.3 H* (3.4-5.0) mmol/L Chloride 101 (98-107) mmol/L Carbon Dioxide 15 L (22-30) mmol/L Anion Gap 23 H (4-12) mmol/L BUN 118 H* D (7-17) mg/dL Creatinine 13.10 H (0.7-1.0) mg/dL Estim Creat Clear Calc Not Reportable Estimated GFR 3 L (59 - ) Glucose 245 H (65-110) mg/dL Calcium 7.1 L (8.4-10.2) mg/dL Iron 114 (37-170) ug/dL TIBC 195 L (261-462) ug/dL % Saturation 58 H (20-50) % Transferrin 131 L (206-381) mg/dL Ferritin 853.00 H (6.24-137) ng/mL Total Bilirubin 0.6 (0.2-1.3) mg/dL AST 36 (14-36) U/L ALT 20 (6-35) U/L Alkaline Phosphatase 134 H (38-126) U/L NT-Pro-B Natriuret Pep 50009 H (19.9-100) pg/mL Total Protein 7.9 (6.3-8.2) g/dL Albumin 4.1 (3.5-5.1) g/dL Vitamin B12 591.0 (239-931) pg/mL Folate 5.3 (2.76->20) ng/mL Hep Bs Antigen Pending Hep Bs Antibody Pending Blood Type O Positive Antibody Screen Positive Antibody Identification Pending Antigen Identification Pending EDINSON, IgG Interpret Pending EDINSON, Poly Interpret Pending EDINSON, Complement Interp Pending Enhanced Crossmatch See Detail 05/03/25 11:13 05/03/25 11:13 Labs: Lab Results 05/03/25 05/03/25 Range/Units 11:13 11:54 WBC 6.4 (4.5-10.0) K/mm3 RBC 2.01 L (4.2-5.4) M/mm3 Hgb 6.0 L* D (12.0-15.0) g/dL Hct 18.5 L* (37.0-47.0) % MCV 92.0 (80-100) fl MCH 29.9 (26-34) pg MCHC 32.4 (32-36) g/dl RDW 14.8 H (11.5-14.5) % Plt Count 152 (150-375) k/mm3 MPV 10.2 (7.4-10.4) fl Immature Gran % (Auto) 0.5 (0-0.5) % Neut % (Auto) 76.6 H (45.5-73.1) % Lymph % (Auto) 14.4 L (18.3-44.2) % Davison % (Auto) 3.8 (2.6-8.5) % Eos % (Auto) 4.1 (0-4.4) % Baso % (Auto) 0.6 (0.2-1.2) % Lymph # (Auto) 0.92 (0.9-3.2) K/mm3 Davison # (Auto) 0.2 (0.1-0.6) K/mm3 Eos # (Auto) 0.3 (0-0.3) K/mm3 Baso # (Auto) 0.0 (0.0-0.1) K/mm3 Abs Immat Gran (auto) 0.03 (0.00-0.031) K/mm3 Absolute Neuts (auto) 4.9 (1.3-6.7) K/mm3 Absolute Nucleated RBC 0.000 (0.0-0.012) K/mm3 Nucleated RBC % 0.0 (0.0-0.2) % Absolute Retic 0.04 (0.02-0.10) 10^6/uL Percent Retic 1.83 (0.7-4.3) % Immature Retic Fraction 16.0 H (3.0-15.9) % Retic Hgb Content 31.2 (28.2-36.6) pg PT 15.1 H (11.1-14.7) Seconds INR 1.2 APTT 30.5 (22.3-36.8) Seconds Sodium 139 (137-145) mmol/L Potassium 6.3 H* (3.4-5.0) mmol/L Chloride 101 (98-107) mmol/L Carbon Dioxide 15 L (22-30) mmol/L Anion Gap 23 H (4-12) mmol/L BUN 118 H* D (7-17) mg/dL Creatinine 13.10 H (0.7-1.0) mg/dL Estim Creat Clear Calc Not Reportable Estimated GFR 3 L (59 - ) Glucose 245 H (65-110) mg/dL Calcium 7.1 L (8.4-10.2) mg/dL Iron 114 (37-170) ug/dL TIBC 195 L (261-462) ug/dL % Saturation 58 H (20-50) % Transferrin 131 L (206-381) mg/dL Ferritin 853.00 H (6.24-137) ng/mL Total Bilirubin 0.6 (0.2-1.3) mg/dL AST 36 (14-36) U/L ALT 20 (6-35) U/L Alkaline Phosphatase 134 H (38-126) U/L NT-Pro-B Natriuret Pep 15689 H (19.9-100) pg/mL Total Protein 7.9 (6.3-8.2) g/dL Albumin 4.1 (3.5-5.1) g/dL Vitamin B12 591.0 (239-931) pg/mL Folate 5.3 (2.76->20) ng/mL Hep Bs Antigen Pending Hep Bs Antibody Pending Blood Type O Positive Antibody Screen Positive Antibody Identification Pending Antigen Identification Pending EDINSON, IgG Interpret Pending EDINSON, Poly Interpret Pending EDINSON, Complement Interp Pending Enhanced Crossmatch See Detail Imaging Data Radiologist's impression: EXAMINATION: XR chest 1V portable DATE: 05/03/2025 11:59 INDICATION: Vomiting TECHNIQUE: frontal view of the chest was obtained. COMPARISON: Chest radiograph dated 03/17/2024 FINDINGS: Lung volumes remain small with mild eventration along the right hemidiaphragm. Increased groundglass opacities throughout both lungs relatively sparing the apices with slightly more dense opacities in the infrahilar aspect of the lower lung zones. No pleural effusion or pneumothorax cardiomediastinal silhouette is within normal limits for AP technique. Visualized bones and soft tissues are unremarkable. IMPRESSION: 1. Increasing groundglass opacities in the bilateral lungs which could represent pulmonary edema, pneumonia or atelectasis. ECG Data EKG #1: ECG completion date: 05/03/25 ECG completion time: 11:57 EKG Interpretation: normal rate, sinus rhythm, non-specific ST changes, normal QRS and normal QT Critical Care Time Critical Care Time Critical Care Time: Yes Total Critical Care Time: 35 Discharge Plan Discharge Clinical Impression: Anemia, End stage renal disease, Hyperkalemia, Acute upper GI bleed Patient Disposition: Still a Patient Condition: Stable
[2025-05-03 11:34] LABS: Hematocrit 18.5 % (37.0-47.0)
[2025-05-03 11:37] LABS: Alanine Aminotransferase 20 U/L (6-35); Albumin Level 4.1 g/dL (3.5-5.1); Alkaline Phosphatase 134 U/L (38-126); Anion Gap 23 mmol/L (4-12); Aspartate Amino Transferase 36 U/L (14-36); Bilirubin,Total 0.6 mg/dL (0.2-1.3); Calcium 7.1 mg/dL (8.4-10.2); Carbon Dioxide 15 mmol/L (22-30); Chloride 101 mmol/L (98-107); Estimated Glomerular Filt Rate 3; Glucose 245 mg/dL (65-110); Sodium 139 mmol/L (137-145); Total Protein 7.9 g/dL (6.3-8.2)
[2025-05-03 11:38] LABS: Blood Urea Nitrogen 118 mg/dL (7-17); Potassium 6.3 mmol/L (3.4-5.0)
--- NOTE | 2025-05-03 11:40 | ECG_ITS ---
Test Date: 2025-05-03 11:57:07 Measurements Intervals [place] Rate: 181 P: 187 AR: 85 QRS: -8 QRSD: 97 T: 0 QT: 216 QTc: 376 Interpretive Statements SINUS RHYTHM INCOMPLETE RIGHT BUNDLE BRANCH BLOCK CANNOT R/O SEPTAL INFARCT, AGE INDETERMINATE BASELINE ARTIFACT- I, II, AVR ABNORMAL ECG No previous ECG available for comparison Electronically Signed On 05-03-2025 11:59:27 CDT by Josr Edmonds D.O.
[2025-05-03 11:44] LABS: INR 1.2; Prothrombin Time 15.1 Seconds (11.1-14.7)
[2025-05-03 11:45] LABS: Partial Thromboplastin Time 30.5 Seconds (22.3-36.8)
[2025-05-03] MEDS: SODIUM CHLORIDE 0.9% IV 1,000 ML 999 ML IV CONT ×2 (11:57→14:59)
[2025-05-03] MEDS: CALCIUM GLUCONATE 1,000 MG/10 ML VIAL 1000 MG IV PUSH (11:58)
[2025-05-03] MEDS: DEXTROSE 50% 25 GM/50 ML SYRINGE IV PUSH (11:58)
[2025-05-03] MEDS: SODIUM BICARBONATE 8.4% 50 MEQ/50 ML SYRINGE IV PUSH (11:58)
[2025-05-03] MEDS: PANTOPRAZOLE SODIUM IV 40 MG VIAL IV PUSH ×2 (12:00→18:26)
[2025-05-03] MEDS: INSULIN HUMAN REGULAR (*BKC) 100 UNITS/ML 10 UNITS IV PUSH (12:00)
[2025-05-03 12:02] LABS: Reticulocyte Hemoglobin Conten 31.2 pg (28.2-36.6); Reticulocyte Percent 1.83 % (0.7-4.3); Reticulocytes Absolute 0.04 10^6/uL (0.02-0.10)
[2025-05-03 12:07] LABS: Iron 114 ug/dL (37-170)
[2025-05-03 12:16] LABS: NT Pro B Type Natriuretic Pept 19700 pg/mL (19.9-100); Percent Iron Saturation 58 % (20-50)
--- OUTSIDE RECORDS SUMMARY | 2025-05-03 12:22 | XMS_ITS | Continuity of Care Document ---
Author Organization [employer] Address [address] [place] [address] Phone Care Team Providers Care Assembler Chassis Name Role Phone Sharon Bundy MD Unavailable [...] Ultra Test Strips [place] 1 [place] [facility] [place] [facility] [place]; Combo Route) route 3 [...] Diagnoses Date Provider Providers Copied on Encounter [employer], [address], [place], [place], [address] , [place] tel: [phone] [facility] No Information Apr- 7 Yemi Herrera. [address], [address], [place], [place], [address]. tel:[phone] [facility], [address], [place], [place], [address] , [place] tel: [phone] [facility] Diabetes with ophthalmic manifestations, type II or unspecified type, uncontrolled 0 3 Guillermo Regalado. [address] [place], [place], [place], [address], [place]. tel:[phone] [facility], [address], [place], [place], [address] , [place] tel: [phone] [facility] Diabetes with ophthalmic manifestations, type II or unspecified type, uncontrolled 3 Guillermo Regalado. [address], [facility] [address], [place], [place], [address], [place]. tel:[phone] [facility], [address], [place], [place], [address] , [place] tel: [phone] [facility] Diabetes with ophthalmic manifestations, type II or unspecified type, uncontrolled 3 Guillermo Regalado. [address] [place], [facility] [address], [place], [place], [address], [place]. tel:[phone] [facility], [address], [place], [place], [address] , [place] tel: [phone] [facility] Diabetes with ophthalmic manifestations, type II or unspecified type, uncontrolled 3 Guillermo Regalado. [address], [facility] [address], [place], [place], [address], [place]. tel:[phone] [facility], [address], [place], [place], [address] , [place] tel: [phone] [facility] Diabetes with ophthalmic manifestations, type II or unspecified type, uncontrolled 3 Guillermo Regalado. [address], [place], [place], [address], [place]. tel:[phone] [facility], [address], [place], [place], [address] , tel: [phone] [facility] DM (diabetes mellitus) type II uncontrolled with eBackground diabetic retinopathyUnspecifi ed essential hypertensionNEED FOR PROPHYLACTIC VACCINATION WITH COMBINED MYOGHNXOHR-[id number] ERTUSSIS (DTP) (DTAP) VACCINE 3 Guillermo Regalado. [address] [place], [facility] [address], [place], [place], [address], [place]. tel:[phone] Referring Provider: Sharon Arias, [address] [place] [address] [address], [place], [address] . tel:[phone] [facility], [address], [place], [place], [address] , [place] tel: [phone] [facility] Hypertensive emergencyDiabetes with ophthalmic manifestations, type II or unspecified type, uncontrolledObesity, unspecifiedNon compliance w medication regimenRetinal hemorrhage 3 Yemi Herrera. [address], [facility] [address], [place], [place], [address]. tel:[phone] Referring Provider: Sharon Arias, [address] [place] [address] [address], [place], [address] . tel:[phone] [facility], [address], [place], [place], [address] , tel: [phone] [facility] Diabetes with ophthalmic manifestations, type II or unspecified type, uncontrolledBackgrou nd diabetic retinopathyObesity, unspecified 2 Yemi Herrera. [address] [place], [facility] [address], [place], [place], [address]. tel:[phone] [facility], [address], [place], [place], [address] , [place] tel: [phone] [facility] No Information 2 Kaunakakaigibran Herrera. [facility] [place], [place] [address], [place], [place], [address]. tel:[phone] [facility], [address], [place], [place], [address] , tel: [phone] [facility] Diabetes with ophthalmic manifestations, type II or unspecified type, uncontrolledObesity, unspecifiedRetinopat hy due to secondary diabetesBackground diabetic retinopathyObesity, unspecifiedRoutine general medical examination at a health care facilityNoncomplian e with diet and medication regimen 2 Kaun[place]igibran Herrera. [address] [place], [facility] [address], [place], [place], [address]. tel:[phone] Referring Provider: Sharon Arias, [address], [place], [address] . tel:[phone] Family History Family Member Type Diagnosis Age At Onset Mother Problem (finding) diabetes melli tus in first degree relative Brother Problem (finding) diabetes melli tus in first degree relative Mother Problem (finding) hypertension Sister Problem (finding) diabetes melli tus in first degree relative Father Problem (finding) diabetes melli tus in first degree relative Immunizations Vaccine Date Status Comments Tdap administered Source: [facility] unization Record Payers Payer name Insurance [...]
--- OUTSIDE RECORDS SUMMARY | 2025-05-03 12:22 | XMS_ITS | Encounter Summary ---
Author Organization [facility] Address [address] [place] [address] Phone Care Team Providers Care Global Transportation Manager Name Role Phone Anna Cobian MD Primary Care Provid er Prakash Dash MD Unavailable [phone] Hilary Fontenot Unavailable Unavailable Srinivasa Herbert MD Unavailable Tina Winter [facility] Unavailable [phone] Leticia Thomas MD Unavailable Bernadette Billy Unavailable Encounter Details Date Type Department Care Team (Late st Contact Info) Description 05/19/[address] [facility] [address] [place] [id number] Deniz Moctezuma, QUOC Social History Tobacco Use Types Packs/Day Years Used Date Smoking Tobacco: Heavy Smoker Cigarettes 0.5 24.5 Started: 2000 Smokeless Tobacco: Never Comments:she does [...] on file Legal Sex Female 7:07 PM LOCK SETTER Gender Identity Not on file Sexual Orientation [...] Body Mass Index 30.78 01/14/2022 9:19 AM LOCK SETTER documented in this encounter Plan of Treatment Not on file documented as of this encounter Visit Diagnoses Not on filedocumented in this encounter Additional Health Concerns Infection Onset Date Last Indicated Resolved Time COVID: Suspected 10/23/2023 10/23/2023 10/23/2023 3:49 PM LOCK SETTER RSV, droplet 10/23/2023 10/23/2023 10/30/2023 3:05 AM LOCK SETTER Rhino/Enterovirus 10/23/2023 10/23/2023 10/30/2023 3:05 AM LOCK SETTER COVID19 10/23/2023 10/23/2023 11/07/2023 3:05 AM LOCK SETTER COVID: Recovered Comment:Added based on recent COVID infection. 11/07/2023 11/08/2023 02/05/2024 3:05 AM C DT COVID: Suspected 11/21/2023 11/21/2023 11/21/2023 4:31 PM LOCK SETTER Abscess/Wound/Cellulitis 11/22/2023 11/22/2023 3:05 AM LOCK SETTER documented as of this encounter Care Teams Global Transportation Manager Relationship Specialty Start Date End Date Anna Cobian MD PCP - General 06/27/18 [place] [address] [address] Consulting Physician Endocrinology 09/29/19 Hilary Fontenot Outpatient Candlemaking Laborer 06/04/23 07/08/23 [place] [address] [address] [address] Consulting Physician Gastroenterology 06/06/23 Tina Winter, [facility] [address] [place] [address] Cement Sack Breaker Nephrology 08/10/23 Leticia Thomas MD [address] [place] [address] Consulting Physician Internal Medicine 10/28/23 Bernadette Billy [address] [address] [place] [address] [facility] Outpatient Candlemaking Laborer 11/25/23 12/06/23 documented as of this encounter
--- OUTSIDE RECORDS SUMMARY | 2025-05-03 12:22 | XMS_ITS | Encounter Summary ---
Author Organization [facility] Address [address] [place] [address] Care Team Providers Care Director Compliance Name Role Phone Anna Cobian MD Primary Care Provid er Prakash Dash MD Unavailable [phone] Hilary Fontenot Unavailable Unavailable Srinivasa Herbert MD Unavailable Tina Winter [facility] Unavailable [phone] Leticia Thomas MD Unavailable Bernadette Billy Unavailable Encounter Details Date Type Department Care Team (Late st Contact Info) Description 11/19/2021 Telephone [facility] Radiology [address] [place], [place] [id number] Yany James RN Social History Tobacco Use [...] on file Legal Sex Female 7:07 PM GRAPHIC USER INTERFACE DESIGNER Gender Identity Not on file Sexual Orientation Not on file documented as of this encounter Plan of Treatment Not on file documented as of this encounter Visit Diagnoses Not on filedocumented in this encounter Additional Health Concerns Infection Onset Date Last Indicated Resolved Time COVID: Suspected 11/20/2021 11/20/2021 11/20/2021 11:06 PM GRAPHIC USER INTERFACE DESIGNER COVID19 11/20/2021 11/20/2021 12/04/2021 3:05 AM GRAPHIC USER INTERFACE DESIGNER COVID: Recovered Comment:Added based on recent COVID infection. 12/04/2021 12/05/2021 04/03/2022 3:05 AM C DT COVID: Suspected 06/02/2022 06/02/2022 06/02/2022 1:51 PM CDT COVID: Suspected 10/01/2022 10/01/2022 10/01/2022 4:30 PM GRAPHIC USER INTERFACE DESIGNER Influenza, adult 10/01/2022 10/01/2022 10/08/2022 3:05 AM GRAPHIC USER INTERFACE DESIGNER COVID: Suspected 10/23/2023 10/23/2023 10/23/2023 3:49 PM GRAPHIC USER INTERFACE DESIGNER RSV, droplet 10/23/2023 10/23/2023 10/30/2023 3:05 AM GRAPHIC USER INTERFACE DESIGNER Rhino/Enterovirus 10/23/2023 10/23/2023 10/30/2023 3:05 AM GRAPHIC USER INTERFACE DESIGNER COVID19 10/23/2023 10/23/2023 11/07/2023 3:05 AM GRAPHIC USER INTERFACE DESIGNER COVID: Recovered Comment:Added based on recent COVID infection. 11/07/2023 11/08/2023 02/05/2024 3:05 AM C DT COVID: Suspected 11/21/2023 11/21/2023 11/21/2023 4:31 PM GRAPHIC USER INTERFACE DESIGNER Abscess/Wound/Cellulitis 11/22/2023 11/22/2023 3:05 AM GRAPHIC USER INTERFACE DESIGNER documented as of this encounter Care Teams Director Compliance Relationship Specialty Start Date End Date Anna Cobian MD PCP - General 06/27/18 [place] [address] [address] [place] [address] Consulting Physician Endocrinology 09/29/19 Hilary Fontenot Outpatient Plate Setter 06/04/23 07/08/23 [place] [address] [address] [place] [address] Consulting Physician Gastroenterology 06/06/23 Tina Winter, [facility] [address] [place] [address] Carpet Weaver Nephrology 08/10/23 Leticia Thomas MD [address] [facility], [place] [address] Consulting Physician Internal Medicine 10/28/23 Bernadette Billy [address] [address] [place] [address] [facility] Outpatient Plate Setter 11/25/23 12/06/23 documented as of this encounter
--- OUTSIDE RECORDS SUMMARY | 2025-05-03 12:22 | XMS_ITS | Clinical Summary ---
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 Acute encephalopathy 07/19/2023 High anion gap metabolic acidosis 07/19/2023 Hyperbilirubinemia 07/19/2023 Hyperphosphatemia 07/19/2023 Hypoalbuminemia 07/19/2023 Hyponatremia 07/19/2023 Thrombocytopenia, secondary 07/19/2023 Volume overload 07/19/2023 Acute respiratory failure with hypoxia Altered mental status 07/18/2023 SOB (shortness of breath) on exertion 07/18/2023 Uremic encephalopathy 07/18/2023 Transaminitis 07/18/2023 Fluid overload, unspecified 06/16/2023 Recent melena 06/03/2023 Anemia requiring transfusions 06/03/2023 Secondary hyperparathyroidism of renal origin Need for vaccination 06/02/2023 Iron deficiency anemia, unspecified 06/02/2023 ESRD (end stage renal disease) 09/30/2019 Overview (07/24/2023): Added automatically from request for surgery [id number] Hypertensive urgency 09/25/2019 Assessment & Plan (09/25/2019 3:43 PM PORTFOLIO ASSISTANT): 222/116 upon admit. S/p IV hydralazine with improvement to 173/97. Resume home enalapril bid. Prn IV enalapril while NPO. Elevated brain natriuretic peptide (BNP) level 1 11/25/2018 Assessment & Plan (09/25/2019 3:44 PM PORTFOLIO ASSISTANT): No history of CHF. BNP 1877 on admit. Initial troponin 30. Will obtain echo and evaluate. Continue serial troponin. Telemetry monitoring. Anemia 09/25/2019 Assessment & Plan (09/25/2019 3:45 PM PORTFOLIO ASSISTANT): H&H is at her baseline. Will follow. Leukocytosis 09/25/2019 Assessment & Plan (09/25/2019 3:50 PM PORTFOLIO ASSISTANT): Possibly reactive. Check UA and CXR. Influenza A/B negative. Labs in am. Diabetic ketoacidosis withou t coma associated with type 2 diabetes mellitus 08/10/2019 Assessment & Plan (09/25/2019 3:51 PM PORTFOLIO ASSISTANT): Currently on insulin stabilizer. IVF. NPO. Endocrinology has been consulted for which we appreciate their evaluation and recommendations. A1c 10.0 in 07/2019. Intractable vomiting 08/10/2019 SHELLI-inhibitor cough 08/10/2019 Hyperosmolar non-ketotic sta te in patient with type 2 diabetes mellitus 06/08/2019 Cholelithiasis 06/08/2019 Gastroparesis 04/15/2019 Neuropathy 04/14/2019 GERD (gastroesophageal reflux disease) 9 Assessment & Plan (09/25/2019 3:45 PM PORTFOLIO ASSISTANT): PPI. Diabetes mellitus 04/14/2019 Abdominal pain, generalized 04/13/2019 Overview (04/14/2019): Added automatically from request for surgery [id number] Intractable cyclical vomiting with nausea 2018 Overview (04/14/2019): Added automatically from request for surgery [id number] Essential hypertension 02/02/2019 Renal osteodystrophy 01/28/2019 Diarrhea 06/28/2018 Nausea and vomiting 06/28/2018 Assessment & Plan (09/25/2019 3:40 PM PORTFOLIO ASSISTANT): Suspect gastroparesis exacerbation. Prn Reglan IV. IVF. NPO. Prn analgesics. Hyperkalemia 01/09/2016 Proteinuria 01/09/2016 Esophageal candidiasis Right upper quadrant abdominal pain Hyperglycemia Resolved Problems Problem Noted Date Diagnosed Date Resolved Date Anemia of chronic disease 07/19/2023 Anemia of chronic renal failure 06/02/2023 07/24/2023 Stage 5 chronic kidney disea se not on chronic dialysis 05/26/2019 07/24/2023 Overview (05/26/2019): Added automatically from request for surgery [id number] Assessment & Plan (09/25/2019 3:42 PM PORTFOLIO ASSISTANT): S/p AV fistula placement 06/2019. Nephrology has been consulted for which we appreciate their evaluation and recommendations. Plan for HD in near future. Stage 4 chronic kidney disease 01/28/2019 07/24/2023 Immunizations Immunization Administration Dates Next [...] History Date Comments Kidney disease Diabetes mellitus (HCC) type 2 Hypertension Neuropathy GERD (gastroesophageal reflux disease) PONV (postoperative nausea and vomiting) PUD (peptic ulcer disease) Acute respiratory failure with hypoxia (HCC) 12/2022 Family History Medical History Relation Name Comments Diabetes Mother Anesthesia problems Neg Hx Relation Name Status Comments Mother Social History Tobacco Use Types Packs/Day Years Used Date Smoking Tobacco: Heavy Smoker Cigarettes 0.5 24.5 Started: 2000 Smokeless Tobacco: Never Tobacco Cessation:Ready to Q uit: Not Asked; Counseling Given: Not Answered Comments:she does smoke marajuana Alcohol Use Standard Drinks/Week Comments No 0 (1 standard drink = 0.6 oz pur e alcohol) [facility] Utilities Answer Date Recorded In the [...] often do you attend chur ch or rastafarian services? More than 4 times per year 11/25/2023 Do you belong to any clubs o r organizations such as latter-day groups, unions, fraternal or athletic groups, or [...] Date Recorded PHQ-2 Total Score 0 08/20/2023 [facility] of Occupat ional Health - Occupational Stress [...] place to sleep or slept in a skilled nursing (including now)? No 11/25/2023 Personal Safety Answer Date Recorded Have you ever been in or are you currently in a harmful physical or emotional relationship or is someone making you feel afraid or unsafe? Denies 12/10/2023 Comments No Sex and Gender Information Value Date Recorded Sex Assigned at Not on file Legal Sex Female 7:07 PM PORTFOLIO ASSISTANT Gender Identity Not on file Sexual Orientation Not on file Obstetrics History Last Filed Vital Signs Vital Sign Reading Time Taken Comments Blood Pressure 211/110 12/21/2023 4:26 PM PORTFOLIO ASSISTANT Pulse 75 12/21/2023 4:26 PM PORTFOLIO ASSISTANT Temperature 36.7 C (98 F) 12/10/2023 9:15 AM PORTFOLIO ASSISTANT Respiratory Rate 16 12/10/2023 9:15 AM PORTFOLIO ASSISTANT Oxygen Saturation 100% 12/10/2023 9:15 AM PORTFOLIO ASSISTANT Inhaled Oxygen Concentration - - Weight 78.5 kg (173 lb) 12/10/2023 9:15 AM PORTFOLIO ASSISTANT Height 167.6 cm (5' 6) 12/10/2023 9:15 AM PORTFOLIO ASSISTANT Body Mass Index 27.92 12/10/2023 9:15 AM PORTFOLIO ASSISTANT Plan of Treatment Health Maintenance Due Date Last Done Comments Albumin Creatinine Ratio, Urine 1985 Cervical Cancer Screening 1985 Foot Exam 1985 Dilated Eye Exam 1995 Varicella Vaccines (1 of 2 - 13+ 2-dose series) 1998 Regular Well Visit/Exam 18-64 2003 DTaP/Tdap/Td Vaccine (1 - Tdap) 12/25/2016 12/24/2016, 09/19/2000 Hemoglobin A1C 05/18/2024 11/18/2023, 12/2022, 07/19/2023, Additional history exists Covid-19 Vaccine ( season) 2024 06/27/2022, 02/13/2021, 01/23/2021 TSH Level 07/19/2024 07/19/2023 Depression Screening 08/18/2024 08/18/2023 Lipid Panel 08/19/2024 08/19/2023, 09/11/2021 eGFR 11/26/2024 11/26/2023, 11/16, 11/24/2023, Additional history exists Influenza Vaccine (Season Ended) 2025 08/12/2019, 01/09/2016 Pneumococcal vaccine <65 (3 of 3 - PCV20 or PCV21) 2035 10/26/2019, 01/09/2016 Hepatitis B Screening Completed 12/21/2023, 003 Hepatitis C Screening Completed 12/21/2023 , 11/24/2023, 11/18/2023, Additional history exists HPV Vaccines Aged Out No longer eligi ble based on patient's age to complete this topic Procedures Procedure Name Priority Date/Time Associated Diagnosis Comments HEPATITIS C ANTIBODY Routine 12/21/2023 12:00 AM PORTFOLIO ASSISTANT ESRD (end stage renal disease) (HCC) EGFR Routine 11/26/2023 2:50 AM PORTFOLIO ASSISTANT HEMOGLOBIN A1C 11/18/2023 12:00 AM PORTFOLIO ASSISTANT LIPID PANEL STAT 08/19/2023 1:29 AM CDT from Last 3 Months or Most Recently Relevant to Health Maintenance Results * Hepatitis C antibody Serum (12/21/2023 12:00 AM PORTFOLIO ASSISTANT) Hep C Ab Nonreactive Nonreactive [facility] [...] active from resolvedcases. Serum 12/21/2023 12/23/2023 Narrative [facility] - 12/23/2023 2:28 PM PORTFOLIO ASSISTANT Unless otherwise specified, test(s) performed at:[facility], [address] [place], [place] [address]LABORATORY DIRECTOR: Jordan Woodard M.D. Landy Rdz MD LAB MICROBIOLOGY - G ENERAL ORDERABLES Final Result [facility] * eGFR (11/26/2023 2:50 AM PORTFOLIO ASSISTANT) Pathologist [facility] eGFR 16 mL/min/1. 73 m2 [facility] Comment: Interpretive Data Reference Interval Normal >/= [...] Inclusion of Race in Diagnosing Kidney Disease, GRAZYNA 2020). The CKD-EPI equation should not be used for patients with unstable renal function and has not been validated in children and those over 70. Current interpretive data was last reviewed 2021. Blood 11/26/2023 2:50 AM PORTFOLIO ASSISTANT 11/26/2023 3:38 AM PORTFOLIO ASSISTANT Landy Rdz MD LAB BLOOD ORDERABLES Final Result Performing Organization Address City/[facility]/ZIP Co de Phone Number [facility] [address] [address] Department [place] [address] * (ABNORMAL) Hemoglobin A1c (11/18/2023 12:00 AM PORTFOLIO ASSISTANT) Hemoglobin A1C 7.9(H) 4.8 - 5.9 % [facility] Blood 11/18/2023 11/19/2023 Narrative [facility] - 11/20/2023 12:11 PM PORTFOLIO ASSISTANT Unless otherwise specified, test(s) performed at:[facility], [address] [place], [place] [address]LABORATORY DIRECTOR: Jordan Woodard M.D. Notinfile Unknown LAB BLOOD ORDERABLES Final Res ult Performing Organization Address [facility] de Phone Number [phone] * Lipid panel (08/19/2023 1:29 AM CDT) Cholesterol 93 30 - 199 mg/dL [facility] Comment: Interpretive Data Ages < or = [...] on 2018. Triglycerides 44 <=149 mg/dL [facility] Comment: Interpretive Data Ages < or = [...] on 2018. HDL 53 >=40 mg/dL [facility] Comment: Interpretive Data Ages [...] 2018. LDL, calculated 31 <=129 mg/dL [facility] Comment: Interpretive Data Ages [...] on 2018. Non-HDL Cholesterol 40 mg/dL [facility] Comment: Interpretive Data Ages [...] last revised on 2018. Chol/HDL ratio 2 [facility] Blood 08/19/2023 1:29 AM CDT 08/19/2023 1:53 AM CDT us Katherine Galdamez MD LAB BLOOD ORDERABLES Final Re sult [facility] Department [place] [address] from Last 3 Months or Most Recently Relevant to Health Maintenance Insurance [place] [facility] DUAL COMPLETE [id number] [facility] Address: [address] [place] [address] [facility] Address: [address] [address] [facility] Address: [address] [address] Advance Directives For more information, please contact: [phone] * Full Code (Latest Code Status on [...] 10:56 PM 06/06/2023 4:40 PM Care Teams Blooming Mill Supervisor Relationship Specialty Start Date End Date Anna Cobian MD PCP - General 06/27/18 [place] [address] [address] [facility] [address] [place] [address] Consulting Physician Endocrinology 09/29/19 [place] [address] [address] [place] [address] Consulting Physician Gastroenterology 06/06/23 Tina Winter, [facility] [place] [address] [place] [address] Trichologist Nephrology 08/10/23 Leticia Thomas MD [address] [address] Consulting Physician Internal Medicine 10/28/23
--- OUTSIDE RECORDS SUMMARY | 2025-05-03 12:22 | XMS_ITS | Clinical Summary ---
Author Organization [facility] Address [address] [place] [address] Phone Care Team Providers Care Traffic Sign Supervisor Name Role Phone Anna Cobian MD [...] 7:03 AM CDT Height 167.6 cm (5' 6) 02/12/2018 7:03 AM CDT Body Mass Index 38.93 02/12/2018 7:03 AM CDT Plan of Treatment Health Maintenance Due Date Last Done Comments DTAP/TDAP/TD VACCINES (1 - Tdap) 2004 HEPATITIS B VACCINES (1 of 3 - 19+ 3-dose series) 2004 HPV/Cotest (21-29) 2006 CERVICAL CANCER SCREENING 2015 HPV/Cotest (30-65) 2015 PAP SMEAR 2015 INFLUENZA VACCINE (#1) 2024 HPV VACCINES Aged Out No longer eligi ble based on patient's age to complete this topic Insurance [place] PART A AND B Advance Directives For more information, please contact: [phone] * Full Code (Latest Code Status on File) Date Activated Date Inactivated Comments 02/12/2018 7:06 AM 02/12/2018 10:20 AM Care Teams Traffic Sign Supervisor Relationship Specialty Start Date End Date Anna Cobian MD PCP - General Internal Medicine 08/04/14
--- OUTSIDE RECORDS SUMMARY | 2025-05-03 12:22 | XMS_ITS ---
Author Organization [facility] Address [address] [place] [address] Care Team Providers Care Ground Defence Officer Name Role Phone Anna Cobian MD Primary Care Provid er Prakash Dash MD Unavailable [phone] Srinivasa Herbert MD Unavailable Tina Winter [facility] Unavailable [phone] Leticia Thomas MD Unavailable Dialysis Access Sites Type Status Location Placement Date Removal Da te AV fistula Active Left Upper Arm - Anterior 06/20/2019 Procedures Procedure Name Priority Date/Time Associated Diagnosis Comments HEPATITIS C ANTIBODY Routine 12/21/2023 12:00 AM ORTHOPEDIC PHYSICIAN ESRD (end stage renal disease) (HCC) EGFR Routine 11/26/2023 2:50 AM ORTHOPEDIC PHYSICIAN HEMOGLOBIN A1C 11/18/2023 12:00 AM ORTHOPEDIC PHYSICIAN LIPID PANEL STAT 08/19/2023 1:29 AM CDT [...] syringe-needle U-100 1 mL 30 gauge x 516 syringe Use one daily for insulin administration 01/03/20 13 Active pen needle, diabetic (Lite Touch Insulin Pen [place]) 31 gauge x 3/16 needleIndication s:Diabetes Mellitus Insulin needles. Sufficient quantity for a month 100 each 11 09/19/20 Active blood-glucose meter miscIndications: Diabetes Mellitus 1 [...] (07/24/2023): Added automatically from request for surgery [id number] Hypertensive urgency 09/25/2019 Assessment & Plan (09/25/2019 3:43 PM ORTHOPEDIC PHYSICIAN): 222/116 upon admit. S/p IV hydralazine with improvement to 173/97. Resume home enalapril bid. Prn IV enalapril while NPO. Elevated brain natriuretic peptide (BNP) level 1 11/25/2018 Assessment & Plan (09/25/2019 3:44 PM ORTHOPEDIC PHYSICIAN): No history of CHF. BNP 1877 on admit. Initial troponin 30. Will obtain echo and evaluate. Continue serial troponin. Telemetry monitoring. Anemia 09/25/2019 Assessment & Plan (09/25/2019 3:45 PM ORTHOPEDIC PHYSICIAN): H&H is at her baseline. Will follow. Leukocytosis 09/25/2019 Assessment & Plan (09/25/2019 3:50 PM ORTHOPEDIC PHYSICIAN): Possibly reactive. Check UA and CXR. Influenza A/B negative. Labs in am. Diabetic ketoacidosis withou t coma associated with type 2 diabetes mellitus 08/10/2019 Assessment & Plan (09/25/2019 3:51 PM ORTHOPEDIC PHYSICIAN): Currently on insulin stabilizer. IVF. NPO. Endocrinology has been consulted for which we appreciate their evaluation and recommendations. A1c 10.0 in 07/2019. Intractable vomiting 08/10/2019 SHELLI-inhibitor cough 08/10/2019 Hyperosmolar non-ketotic sta te in patient with type 2 diabetes mellitus 06/08/2019 Cholelithiasis 06/08/2019 Gastroparesis 04/15/2019 Neuropathy 04/14/2019 GERD (gastroesophageal reflux disease) 9 Assessment & Plan (09/25/2019 3:45 PM ORTHOPEDIC PHYSICIAN): PPI. Diabetes mellitus 04/14/2019 Abdominal pain, generalized 04/13/2019 Overview (04/14/2019): Added automatically from request for surgery [id number] Intractable cyclical vomiting with nausea 2018 Overview (04/14/2019): Added automatically from request for surgery [id number] Essential hypertension 02/02/2019 Renal osteodystrophy 01/28/2019 Diarrhea 06/28/2018 Nausea and vomiting 06/28/2018 Assessment & Plan (09/25/2019 3:40 PM ORTHOPEDIC PHYSICIAN): Suspect gastroparesis exacerbation. Prn Reglan IV. IVF. NPO. Prn analgesics. Hyperkalemia 01/09/2016 Proteinuria 01/09/2016 Esophageal candidiasis Right upper quadrant abdominal pain Hyperglycemia Immunizations [...] = 0.6 oz pur e alcohol) [facility] Utilities Answer Date Recorded In the past 12 months has e [employer], gas, oil, or water [employer] threatened to shut off services in your [...] 11/25/2023 How often do you attend chur or hinduism services? More than 4 times per year 11/25/2023 Do you belong to any clubs o r organizations such as denominational groups, unions, fraternal or athletic groups, or [...] Date Recorded PHQ-2 Total Score 0 08/20/2023 [facility] of Occupat ional Health - Occupational Stress [...] place to sleep or slept in a retirement (including now)? No 11/25/2023 Personal Safety Answer Date Recorded Have you ever been in or are you currently in a harmful physical or emotional relationship or is someone making you feel afraid or unsafe? Denies 12/10/2023 Comments No Sex and Gender Information Value Date Recorded Sex Assigned at Not on file Legal Sex Female 7:07 PM ORTHOPEDIC PHYSICIAN Gender Identity Not on file Sexual Orientation Not on file Last Filed Vital Signs Vital Sign Reading Time Taken Comments Blood Pressure 211/110 12/21/2023 4:26 PM ORTHOPEDIC PHYSICIAN Pulse 75 12/21/2023 4:26 PM ORTHOPEDIC PHYSICIAN Temperature 36.7 C (98 F) 12/10/2023 9:15 AM ORTHOPEDIC PHYSICIAN Respiratory Rate 16 12/10/2023 9:15 AM ORTHOPEDIC PHYSICIAN Oxygen Saturation 100% 12/10/2023 9:15 AM ORTHOPEDIC PHYSICIAN Inhaled Oxygen Concentration - - Weight 78.5 kg (173 lb) 12/10/2023 9:15 AM ORTHOPEDIC PHYSICIAN Height 167.6 cm (5' 6) 12/10/2023 9:15 AM ORTHOPEDIC PHYSICIAN Body Mass Index 27.92 12/10/2023 9:15 AM ORTHOPEDIC PHYSICIAN Results * Hepatitis C antibody Serum (12/21/2023 12:00 AM ORTHOPEDIC PHYSICIAN) Hep C Ab Nonreactive Nonreactive [facility] Comment:No HCV antibody dete cted.The above test result was obtained using Siemens [employer]kraur XPchemiluminescent method. Results obtained with different assay methodsor kits cannot be used interchangeably. HCV s/co ratio 0.07 0.00 - 0.79 [facility] Comment:s/co ratio Interpret ation Supplemental testing<0.80 Nonreactive No further testing required.0.80-0.99 Equivocal HCV RNA Quantitative Real-Time PCRis recommended.1.00->11.00 Reactive HCV RNA Quantitative Real-Time PCRis recommended to distinguish active from resolvedcases. Serum 12/21/2023 12/23/2023 Narrative [facility] - 12/23/2023 2:28 PM ORTHOPEDIC PHYSICIAN Unless otherwise specified, test(s) performed at:[email or web address], [address] [place] [id number] DIRECTOR: Jordan Woodard M.D. Landy Rdz MD LAB MICROBIOLOGY - G ENERAL ORDERABLES Final Result Performing Organization Address City/[facility] Co de Phone Number [facility] * eGFR (11/26/2023 2:50 AM ORTHOPEDIC PHYSICIAN) eGFR 16 mL/min/1. 73 m2 [facility] Comment: [...] last reviewed 2021. Blood 11/26/2023 2:50 AM ORTHOPEDIC PHYSICIAN 11/26/2023 3:38 AM ORTHOPEDIC PHYSICIAN Landy Rdz MD LAB BLOOD ORDERABLES Final Result [facility] [address] Department [place] [address] * (ABNORMAL) Hemoglobin A1c (11/18/2023 12:00 AM ORTHOPEDIC PHYSICIAN) Hemoglobin A1C 7.9(H) 4.8 - 5.9 % [facility] Blood 11/18/2023 11/19/2023 Narrative [facility] - 11/20/2023 12:11 PM ORTHOPEDIC PHYSICIAN Unless otherwise specified, test(s) performed at:[email or web address], [address] [place], [place] [id number] DIRECTOR: Jordan Woodard M.D. us Notinfile Unknown LAB BLOOD ORDERABLES Final Res ult [facility] * Lipid panel (08/19/2023 1:29 AM CDT) Cholesterol 93 30 - 199 mg/dL [facility] Comment: Interpretive Data Ages < or [...] on 2018. Triglycerides 44 <=149 mg/dL [facility] Comment: Interpretive Data Ages < or [...] on 2018. HDL 53 >=40 mg/dL [facility] Comment: Interpretive Data Ages < or [...] 2018. LDL, calculated 31 <=129 mg/dL [facility] Comment: Interpretive Data Ages < or [...] revised on 2018. Non-HDL Cholesterol 40 mg/dL [facility] Comment: Interpretive Data Ages < or [...] last revised on 2018. Chol/HDL ratio [address] [facility] Blood 08/19/2023 1:29 AM CDT 08/19/2023 1:53 AM CDT Katherine Galdamez MD LAB BLOOD ORDERABLES Final Re sult [facility] [place] [address] from Last 3 Months or Most Recently Relevant to Health Maintenance
--- OUTSIDE RECORDS SUMMARY | 2025-05-03 12:22 | XMS_ITS | Encounter Summary ---
Author Organization [facility] Address [address] [place] [address] Care Team Providers Care Hire Car Driver Name Role Phone Anna Cobian MD Primary Care Provid er Prakash Dash MD Unavailable [phone] Srinivasa Herbert MD Unavailable Tina Winter [facility] Unavailable [phone] Leticia Thomas MD Unavailable Bernadette Billy Unavailable Encounter Details Date Type Department Care Team (Late st Contact Info) Description 08/26/2023 Treatment [facility] [address] [facility] [address]rd [place] [address] Shobha Schuster MD PhD [address] [address] [id number] [place] [address] Social History Tobacco Use Types Packs/Day Years [...] often do you attend chur ch or cheondoism services? Never 08/20/2023 Do you belong to any clubs o r organizations such as restoration groups, unions, fraternal or athletic groups, or [...] Date Recorded PHQ-2 Total Score 0 08/20/2023 [facility] of Occupat ional Health - Occupational Stress [...] place to sleep or slept in a penitentiary (including now)? No 06/26/2023 Comments No Sex and Gender Information Value Date Recorded Sex Assigned at Not on file Legal Sex Female 7:07 PM ELECTRICIAN ELEVATOR MAINTENANCE Gender Identity Not on file Sexual Orientation [...] HD who presents as a transfer from [facility] d/t concern for compartment syndrome. Testing [...] future transfusions. Contact Information: Please contact the [facility] with any questions. This report [...] COVID: Suspected 10/23/2023 10/23/2023 10/23/2023 3:49 PM ELECTRICIAN ELEVATOR MAINTENANCE RSV, droplet 10/23/2023 10/23/2023 10/30/2023 3:05 AM ELECTRICIAN ELEVATOR MAINTENANCE Rhino/Enterovirus 10/23/2023 10/23/2023 10/30/2023 3:05 AM ELECTRICIAN ELEVATOR MAINTENANCE COVID19 10/23/2023 10/23/2023 11/07/2023 3:05 AM ELECTRICIAN ELEVATOR MAINTENANCE COVID: Recovered Comment:Added based on recent COVID infection. 11/07/2023 11/08/2023 02/05/2024 3:05 AM C DT COVID: Suspected 11/21/2023 11/21/2023 11/21/2023 4:31 PM ELECTRICIAN ELEVATOR MAINTENANCE Abscess/Wound/Cellulitis 11/22/2023 11/22/2023 3:05 AM ELECTRICIAN ELEVATOR MAINTENANCE documented as of this encounter Care Teams Hire Car Driver Relationship Specialty Start Date End Date Anna Cobian MD PCP - General 06/27/18 [place] [address] [facility] [facility] [address] [place] [address] Consulting Physician Endocrinology 09/29/19 [place] [address] [facility] [address] [place] [address] Consulting Physician Gastroenterology 06/06/23 Tina Winter, WATCH ASSEMBLY INSPECTOR [address] [place] [address] Strong Nitric Operator Nephrology 08/10/23 Leticia Thomas MD [address] [place] [address] Consulting Physician Internal Medicine 10/28/23 Bernadette Billy [address] [address] [place] [address] [facility] Outpatient Probation And Parole Officer 11/25/23 12/06/23 documented as of this encounter
--- OUTSIDE RECORDS SUMMARY | 2025-05-03 12:22 | XMS_ITS | Referral Summary ---
Author Organization [facility] Address [address] [place] [address] Care Team Providers Care Electronic Equipment Maint Tech Name Role Phone Anna Cobian MD Primary Care Provid er Prakash Dash MD Unavailable [phone] Srinivasa Herbert MD Unavailable Tina Winter [facility] Unavailable [phone] Leticia Thomas MD Unavailable Allergies No known [...] pen needle, diabetic (Lite Touch Insulin Pen [place]) 31 gauge x 3/16 needleIndication s:Diabetes Mellitus [...] (07/24/2023): Added automatically from request for surgery [id number] Hypertensive urgency 09/25/2019 Assessment & Plan (09/25/2019 3:[address]PER[address] ROAD SUPERVISOR): 222/116 upon admit. S/p IV hydralazine with improvement to 173/97. Resume home enalapril bid. Prn IV enalapril while NPO. Elevated brain natriuretic peptide (BNP) level 1 11/25/2018 Assessment & Plan (09/25/2019 3:[address]LE OPERATOR ROAD SUPERVISOR): No history of CHF. BNP 1877 on admit. Initial troponin 30. Will obtain echo and evaluate. Continue serial troponin. Telemetry monitoring. Anemia 09/25/2019 Assessment & Plan (09/25/2019 3:[address]LE OPERATOR [address]AD SUPERVISOR): H&H is at her baseline. Will follow. Leukocytosis 09/25/2019 Assessment & Plan (09/25/2019 3:50 PM [address]ICLE OPERATOR ROAD SUPERVISOR): Possibly reactive. Check UA and CXR. Influenza A/B negative. Labs in am. Diabetic ketoacidosis withou t coma associated with type 2 diabetes mellitus 08/10/2019 Assessment & Plan (09/25/2019 3:51 [address]LE OPERATOR ROAD SUPERVISOR): Currently on insulin stabilizer. IVF. NPO. Endocrinology has been consulted for which we appreciate their evaluation and recommendations. A1c 10.0 in 07/2019. Intractable vomiting 08/10/2019 SHELLI-inhibitor cough 08/10/2019 Hyperosmolar non-ketotic sta te in patient with type 2 diabetes mellitus 06/08/2019 Cholelithiasis 06/08/2019 Gastroparesis 04/15/2019 Neuropathy 04/14/2019 GERD (gastroesophageal reflux disease) 9 Assessment & Plan (09/25/2019 3:45 [address]LE OPERATOR ROAD SUPERVISOR): PPI. Diabetes mellitus 04/14/2019 Abdominal pain, generalized 04/13/2019 Overview (04/14/2019): Added automatically from request for surgery [id number] Intractable cyclical vomiting with nausea 2018 Overview (04/14/2019): Added automatically from request for surgery [id number] Essential hypertension 02/02/2019 Renal osteodystrophy 01/28/2019 Diarrhea 06/28/2018 Nausea and vomiting 06/28/2018 Assessment & Plan (09/25/2019 3:[address]LE OPERATOR [address] SUPERVISOR): Suspect gastroparesis exacerbation. Prn Reglan IV. IVF. NPO. Prn analgesics. Hyperkalemia 01/09/2016 Proteinuria 01/09/2016 Esophageal candidiasis Right upper quadrant abdominal pain Hyperglycemia Resolved Problems Problem Noted Date Diagnosed Date Resolved Date Anemia of chronic disease 07/19/2023 Anemia of chronic renal failure 06/02/2023 07/24/2023 Stage 5 chronic kidney disea se not on chronic dialysis 05/26/2019 07/24/2023 Overview (05/26/2019): Added automatically from request for surgery [id number] Assessment & Plan (09/25/2019 3:42 PM [address]LE OPERATOR [address]AD SUPERVISOR): S/p AV fistula placement 06/2019. Nephrology has [...] drink = 0.6 oz pur e alcohol) [facility] Utilities Answer Date Recorded In the past 12 months has e [email or web address], gas, oil, or water company threatened to [...] How often do you attend chur or adventism services? More than 4 times per year 11/25/2023 Do you belong to any clubs o r organizations such as mandaen groups, unions, fraternal or athletic groups, or [...] Date Recorded PHQ-2 Total Score 0 08/20/2023 [facility] - Occupational [...] place to sleep or slept in a snf (including now)? No 11/25/2023 Personal Safety Answer Date Recorded Have you ever been in or are you currently in a harmful physical or emotional relationship or is someone making you feel afraid or unsafe? Denies 12/10/2023 Comments No Sex and Gender Information Value Date Recorded Sex Assigned at Not on file Legal Sex Female 7:07 PM [address]ICLE OPERATOR [address] SUPERVISOR Gender Identity Not on file Sexual Orientation Not on file Last Filed Vital Signs Vital Sign Reading Time Taken Comments Blood Pressure 211/110 12/21/2023 4:26 [address]LE [address]PERATOR [address] SUPERVISOR Pulse 75 12/21/2023 4:26 PM [address]LE OPERATOR [address]AD SUPERVISOR Temperature 36.7 C (98 F) 12/10/2023 9:15 [address] SUPERVISOR Respiratory Rate 16 12/10/2023 9:15 AM [address]LE [address]PERATOR [address] SUPERVISOR Oxygen Saturation 100% 12/10/2023 9:15 AM [address]LE OPERATOR [address] SUPERVISOR Inhaled Oxygen Concentration - - Weight 78.5 kg (173 lb) 12/10/2023 9:15 AM [address]ICLE OPERATOR [address]AD SUPERVISOR Height 167.6 cm (5' 6) 12/10/2023 9:15 AM [address]LE OPERATOR [address] SUPERVISOR Body Mass Index 27.92 12/10/2023 9:15 AM [address]LE OPERATOR [address] SUPERVISOR Plan of Treatment Not on file Procedures Procedure Name Priority Date/Time Associated Diagnosis Comments HEPATITIS C ANTIBODY Routine 12/21/2023 12:00 AM [address]LE OPERATOR [address] SUPERVISOR ESRD (end stage renal disease) (HCC) EGFR Routine 11/26/2023 2:50 AM [address]LE [address]PERATOR [address] SUPERVISOR HEMOGLOBIN A1C 11/18/2023 12:[address]LE [address]PERATOR [address] SUPERVISOR LIPID PANEL STAT 08/19/2023 1:29 AM CDT from Last 3 Months or Most Recently Relevant to Health Maintenance Results * Hepatitis C antibody Serum (12/21/2023 12:00 AM [address]ICLE OPERATOR ROAD SUPERVISOR) Hep C Ab Nonreactive Nonreactive [facility] Comment:No HCV antibody dete cted.The above test result was obtained using Siemens FortyCloudaur XPchemiluminescent method. Results obtained with different assay methodsor kits cannot be used interchangeably. HCV s/co ratio 0.07 0.00 - 0.79 [facility] Comment:s/co ratio Interpret ation Supplemental testing<0.80 Nonreactive No further testing required.0.80-0.99 Equivocal HCV RNA Quantitative Real-Time PCRis recommended.1.00->11.00 Reactive HCV RNA Quantitative Real-Time PCRis recommended to distinguish active from resolvedcases. Serum 12/21/2023 12/23/2023 Narrative [facility] - 12/23/2023 2:28 PM [address]ICLE OPERATOR ROAD SUPERVISOR Unless otherwise specified, test(s) performed at:[facility] [address] [place], [place] [address]LABORATORY DIRECTOR: Jordan Woodard M.D. Landy Rdz MD LAB MICROBIOLOGY - G ENERAL ORDERABLES Final Result [facility] * eGFR (11/26/2023 2:50 AM [address]ICLE OPERATOR [address] SUPERVISOR) eGFR 16 mL/min/1. 73 m2 [facility] Comment: [...] last reviewed 2021. Blood 11/26/2023 2:50 AM [address]LE OPERATOR [address] SUPERVISOR 11/26/2023 3:38 AM [address]LE OPERATOR [address] SUPERVISOR us Landy Rdz MD LAB BLOOD ORDERABLES Final Result [facility] [id number] Department [place] [address] * (ABNORMAL) Hemoglobin A1c (11/18/2023 12:00 AM [address]LE OPERATOR [address] SUPERVISOR) Hemoglobin A1C 7.9(H) 4.8 - 5.9 % [facility] Blood 11/18/2023 11/19/2023 Narrative [facility] - 11/20/2023 12:11 PM [address]ICLE OPERATOR [address] SUPERVISOR Unless otherwise specified, test(s) performed at:[facility] [address] [place], [place] [address]LABORATORY DIRECTOR: Jordan Woodard M.D. us Notinfile Unknown LAB BLOOD ORDERABLES Final Res ult Performing Organization Address City/[facility]/ZIP Co de Phone Number [facility] * Lipid panel (08/19/2023 1:29 AM CDT) Cholesterol 93 30 - 199 mg/dL [facility] Comment: Interpretive Data Ages < or = [...] revised on 2018. Triglycerides 44 <=149 mg/dL [facility] Comment: Interpretive Data Ages < [...] revised on 2018. HDL 53 >=40 mg/dL [facility] Comment: Interpretive Data Ages < [...] on 2018. LDL, calculated 31 <=129 mg/dL [facility] Comment: Interpretive Data Ages < [...] revised on 2018. Non-HDL Cholesterol 40 mg/dL [facility] Comment: Interpretive Data Ages < [...] LAB BLOOD ORDERABLES Final Re sult [facility] Department [place] [address] from Last 3 Months or Most Recently Relevant to Health Maintenance Insurance [place] [employer] [facility] DUAL COMPLETE [id number] [facility] Advance Directives For more information, please contact: [phone] * Full Code (Latest Code Status on [...] 10:56 PM 06/06/2023 4:40 PM Care Teams Electronic Equipment Maint Tech Relationship Specialty Start Date End Date Anna Cobian MD PCP - General 06/27/18 [place] [address] [facility] [address] [place] [address] Consulting Physician Endocrinology 09/29/19 [place] [address] [facility] [address] [place] [address] Consulting Physician Gastroenterology 06/06/23 Tina Winter, SLUBBER RUNNER [address] [address] Visual Developer Nephrology 08/10/23 Leticia Thomas MD [address] [address] Consulting Physician Internal Medicine 10/28/23
--- OUTSIDE RECORDS SUMMARY | 2025-05-03 12:22 | XMS_ITS | Encounter Summary ---
Author Organization [facility] Address [address] [place] [address] Phone Care Team Providers Care Computer Analyst Name Role Phone Anna Cobian MD Primary Care Provid er Anna Cobian MD Primary Care Provid er Sharon Bundy Primary Care Provider + Anna Cobian MD Primary Care Provid er Prakash Dash MD Unavailable [phone] Hilary Fontenot Unavailable Unavailable Srinivasa Herbert MD Unavailable Tina Winter [facility] Unavailable [phone] Leticia Thomas MD Unavailable Bernadette Billy Unavailable Encounter Details Date Type Department Care Team (Late st Contact Info) Description 11/28/2012 Orders Only [facility] Provider, MD Royer [address] [place] [id number] Social History Tobacco Use Types Packs/Day Years Used Date Smoking Tobacco: Never Assessed Comments Unknown Sex and Gender Information Value Date Recorded Sex Assigned at Not on file Legal Sex Female 7:07 PM RECRUITING ASSISTANT Gender Identity Not on file Sexual [...] COVID: Suspected 12/28/2020 12/28/2020 12/29/2020 3:54 AM RECRUITING ASSISTANT Respiratory Infection (CHUY), contact + droplet Comment:Automatically added due to negative COVID-19 result. 12/29/2020 12/29/2020 01/12/2021 3:0 7 AM RECRUITING ASSISTANT COVID: Suspected 11/20/2021 11/20/2021 11/20/2021 11:06 PM RECRUITING ASSISTANT COVID19 11/20/2021 11/20/2021 12/04/2021 3:05 AM RECRUITING ASSISTANT COVID: Recovered Comment:Added based on recent COVID infection. 12/04/2021 12/05/2021 04/03/2022 3:05 AM C DT COVID: Suspected 06/02/2022 06/02/2022 06/02/2022 1:51 PM CDT COVID: Suspected 10/01/2022 10/01/2022 10/01/2022 4:30 PM RECRUITING ASSISTANT Influenza, adult 10/01/2022 10/01/2022 10/08/2022 3:05 AM RECRUITING ASSISTANT COVID: Suspected 10/23/2023 10/23/2023 10/23/2023 3:49 PM RECRUITING ASSISTANT RSV, droplet 10/23/2023 10/23/2023 10/30/2023 3:05 AM RECRUITING ASSISTANT Rhino/Enterovirus 10/23/2023 10/23/2023 10/30/2023 3:05 AM RECRUITING ASSISTANT COVID19 10/23/2023 10/23/2023 11/07/2023 3:05 AM RECRUITING ASSISTANT COVID: Recovered Comment:Added based on recent COVID infection. 11/07/2023 11/08/2023 02/05/2024 3:05 AM C DT COVID: Suspected 11/21/2023 11/21/2023 11/21/2023 4:31 PM RECRUITING ASSISTANT Abscess/Wound/Cellulitis 11/22/2023 11/22/2023 3:05 AM RECRUITING ASSISTANT documented as of this encounter Care Teams Computer Analyst Relationship Specialty Start Date End Date Anna Cobian MD PCP - General 01/31/17 04/21/17 Anna Cobian MD PCP - General 04/22/17 06/15/17 Sharon Bundy [address] [place] [address] [address] [place] [address] PCP - General 06/16/17 06/26/18 Anna Cobian MD PCP - General 06/27/18 [place] [address] [address] [facility] [address] [place] [address] Consulting Physician Endocrinology 09/29/19 Hilary Fontenot Outpatient Latin Teacher 06/04/23 07/08/23 [place] [address] [address] [facility] [address] [place] [address] Consulting Physician Gastroenterology 06/06/23 Tina Winter, [facility] [address] [place] [address] Transportation Manager Nephrology 08/10/23 Leticia Thomas MD [address] [place] [address] Consulting Physician Internal Medicine 10/28/23 Billy, [address] [place] [address] [facility] Outpatient Latin Teacher 11/25/23 12/06/23 documented as of this encounter
--- OUTSIDE RECORDS SUMMARY | 2025-05-03 12:24 | XMS_ITS | Encounter Summary ---
Author Organization [facility] Address [address] [place] [address] Phone Care Team Providers Care Manager Research Name Role Phone Anna Cobian MD Primary Care Provid er Prakash Dash MD Unavailable [phone] Hilary Fontenot Unavailable Unavailable Srinivasa Herbert MD Unavailable Tina Winter [facility] Unavailable [phone] Leticia Thomas MD Unavailable Bernadette Billy Unavailable Encounter Details Date Type Department Care Team (Late st Contact Info) Description 06/30/2022 Treatment [facility] Nephrology [address] [place] [phone] Zeke Singer Jr., RN Social History [...] on file Legal Sex Female 7:07 PM MARKETING COMPLIANCE MANAGER Gender Identity Not on file Sexual Orientation Not on file documented as of this encounter Plan of Treatment Not on file documented as of this encounter Visit Diagnoses Not on filedocumented in this encounter Additional Health Concerns Infection Onset Date Last Indicated Resolved Time COVID: Suspected 10/01/2022 10/01/2022 10/01/2022 4:30 PM MARKETING COMPLIANCE MANAGER Influenza, adult 10/01/2022 10/01/2022 10/08/2022 3:05 AM MARKETING COMPLIANCE MANAGER COVID: Suspected 10/23/2023 10/23/2023 10/23/2023 3:49 PM MARKETING COMPLIANCE MANAGER RSV, droplet 10/23/2023 10/23/2023 10/30/2023 3:05 AM MARKETING COMPLIANCE MANAGER Rhino/Enterovirus 10/23/2023 10/23/2023 10/30/2023 3:05 AM MARKETING COMPLIANCE MANAGER COVID19 10/23/2023 10/23/2023 11/07/2023 3:05 AM MARKETING COMPLIANCE MANAGER COVID: Recovered Comment:Added based on recent COVID infection. 11/07/2023 11/08/2023 02/05/2024 3:05 AM C DT COVID: Suspected 11/21/2023 11/21/2023 11/21/2023 4:31 PM MARKETING COMPLIANCE MANAGER Abscess/Wound/Cellulitis 11/22/2023 11/22/2023 3:05 AM MARKETING COMPLIANCE MANAGER documented as of this encounter Care Teams Manager Research Relationship Specialty Start Date End Date Anna Cobian MD PCP - General 06/27/18 [place] [address] [address] [facility] [address] [place] [address] Consulting Physician Endocrinology 09/29/19 Hilary Fontenot Outpatient Mold Builder 06/04/23 07/08/23 [place] [address] [address] [facility] [address] [place] [address] Consulting Physician Gastroenterology 06/06/23 Tina Winter, COLOR MAKER DYER [address] [place] [address] Infectious Waste Technician Nephrology 08/10/23 Leticia Thomas MD [address] [place] [address] Consulting Physician Internal Medicine 10/28/23 Bernadette Billy[address] [place] [address] [facility] Outpatient Mold Builder 11/25/23 12/06/23 documented as of this encounter
--- OUTSIDE RECORDS SUMMARY | 2025-05-03 12:24 | XMS_ITS | Encounter Summary ---
Author Organization [facility] Address [address] [place] [address] Phone Care Team Providers Care Control Panel Operator Crude Unit Name Role Phone Anna Cobian MD Primary Care Provid er Prakash Dash MD Unavailable [phone] Hilary Fontenot Unavailable Unavailable Srinivasa Herbert MD Unavailable Tina Winter [facility] Unavailable [phone] Leticia Thomas MD Unavailable Bernadette Billy Unavailable Encounter Details Date Type Department Care Team (Late st Contact Info) Description 02/28/2020 Orders Only [facility] Nephrology [address] [place] [phone] Zeke Singer Jr., RN Cough (Primary Dx) Social History Tobacco Use Types Packs/Day Years Used Date Smoking Tobacco: Light Smoker Cigarettes 0.2 24.5 Started: 2000 Smokeless Tobacco: Never Comments:she does smoke david kailash Alcohol Use Standard Drinks/Week Comments No 0 (1 standard drink = 0.6 oz pur e alcohol) Comments No Sex and Gender Information Value Date Recorded Sex Assigned at Not on file Legal Sex Female 7:07 PM LUNCHROOM MONITOR Gender Identity Not on file Sexual Orientation Not on file documented as of this encounter Progress Notes * Zeke Singer Jr., RN - 02/28/2020 10:55 AM CDT covid documented in this encounter Plan of Treatment Not on file documented as of this encounter Results * COVID-19 Coronavirus RNA Nasopharyngeal (02/28/2020 10:58 AM CDT) [facility] COVID-19 RNA Not Detected [facility] Comment: Interpretive Data Testing performed at [facility] Molecular Infectious Disease Laboratory. The 2019-Novel [...] CDT 02/28/2020 4:05 PM CDT Narrative [facility] - 02/29/2020 2:15 AM CDT Does the patient meet the testing requirements described in the process instructions above?->Yes Saeid Alcala MD LAB MICROBIOLOGY - GENERAL ORDERABLES Final Result [facility] Department [place] [address] documented in this encounter Visit Diagnoses Diagnosis Cough- Primary Cough documented in this encounter Additional Health Concerns Infection Onset Date Last Indicated Resolved Time COVID: Suspected 02/28/2020 02/28/2020 03/13/2020 3:05 AM CDT COVID: Suspected 12/28/2020 12/28/2020 12/29/2020 3:54 AM LUNCHROOM MONITOR Respiratory Infection (CHUY), contact + droplet Comment:Automatically added due to negative COVID-19 result. 12/29/2020 12/29/2020 01/12/2021 3:0 7 AM LUNCHROOM MONITOR COVID: Suspected 11/20/2021 11/20/2021 11/20/2021 11:06 PM LUNCHROOM MONITOR COVID19 11/20/2021 11/20/2021 12/04/2021 3:05 AM LUNCHROOM MONITOR COVID: Recovered Comment:Added based on recent COVID infection. 12/04/2021 12/05/2021 04/03/2022 3:05 AM C DT COVID: Suspected 06/02/2022 06/02/2022 06/02/2022 1:51 PM CDT COVID: Suspected 10/01/2022 10/01/2022 10/01/2022 4:30 PM LUNCHROOM MONITOR Influenza, adult 10/01/2022 10/01/2022 10/08/2022 3:05 AM LUNCHROOM MONITOR COVID: Suspected 10/23/2023 10/23/2023 10/23/2023 3:49 PM LUNCHROOM MONITOR RSV, droplet 10/23/2023 10/23/2023 10/30/2023 3:05 AM LUNCHROOM MONITOR Rhino/Enterovirus 10/23/2023 10/23/2023 10/30/2023 3:05 AM LUNCHROOM MONITOR COVID19 10/23/2023 10/23/2023 11/07/2023 3:05 AM LUNCHROOM MONITOR COVID: Recovered Comment:Added based on recent COVID infection. 11/07/2023 11/08/2023 02/05/2024 3:05 AM C DT COVID: Suspected 11/21/2023 11/21/2023 11/21/2023 4:31 PM LUNCHROOM MONITOR Abscess/Wound/Cellulitis 11/22/2023 11/22/2023 3:05 AM LUNCHROOM MONITOR documented as of this encounter Care Teams Control Panel Operator Crude Unit Relationship Specialty Start Date End Date Anna Cobian MD PCP - General 06/27/18 [place] [address] [address] Consulting Physician Endocrinology 09/29/19 Hilary Fontenot [facility] Outpatient Heel Builder Machine 06/04/23 07/08/23 [place] [address] [address] [place] [address] [place] [address] Consulting Physician Gastroenterology 06/06/23 Tina Winter, [facility] [address] [place] [address] Independent Driver Nephrology 08/10/23 Leticia Thomas MD [address] [place] [address] Consulting Physician Internal Medicine 10/28/23 Bernadette Billy [address] [address] [place] [address] [facility] Outpatient Heel Builder Machine 11/25/23 12/06/23 documented as of this encounter
--- OUTSIDE RECORDS SUMMARY | 2025-05-03 12:24 | XMS_ITS | Clinical Summary ---
Author Organization [facility] [employer] Address [address] [place] [address] Care Team Providers Care Recreation Therapy Director Name Role Phone Anna Cobian MD Primary Care Provid er Source Comments [facility] [employer],non-owned Affiliates and Associated Physician Practices is amultiple site organization consisting of ambulatory clinics and hospital sitesin [place], [place], [place] and [place]. This disclosure is being madepursuant to the Care Everywhere program and may not contain all information available regarding this patient. Last updated 18.[facility] [employer] Allergies No known active allergies Medications * Be aware that medications may not be up to date on this document. Alwaysverify current medications with the patient. insulin glargine (Lantus/Semgle e) 100 units/mL penIndications :Type 2 Diabetes Mellitus Inject 40 (forty) Units subcutaneously every 24 hours for 30 days Reasons: Type 2 Diabetes 12 mL 3 Active insulin aspart (NovoLOG FLEXPEN) penIndications :Type 2 Diabetes Mellitus Inject 10 (ten) Units subcutaneously 3 times daily before meals for 30 days Reasons: Type 2 Diabetes 9 mL 3 Active atorvastatin (Lipitor) 10 MG tabletIndicati ons:Hyperlipid emia Take 1 (one) tablet by mouth at bedtime for 30 days Reasons: High Amount of Fats in the Blood 30 tablet 3 Active carvedilol (Coreg) 25 MG tabletIndicati ons:Hypertensi on Take 1 (one) tablet by mouth 2 times daily with morning and evening meal for 30 days Reasons: High Blood Pressure Disorder 60 tablet 3 Active amLODIPine (Norvasc) 10 MG tabletIndicati ons:Hypertensi on Take 1 (one) tablet by mouth once daily for 30 days Reasons: High Blood Pressure Disorder 30 tablet 3 Active epoetin (Epogen; Procrit) 4000 UNIT/ML injection 1 mL by Intravenous route Give in dialysis on Thursday, & Thursday 3 Active hydrALAZINE (Apresoline) 25 MG tabletIndicati ons:Hypertensi on Take 1 (one) tablet by mouth 3 times daily for 30 days Reasons: High Blood Pressure Disorder 90 tablet 3 Active calcium acetate (Phoslo) 667 MG capsuleIndicat ions:Hyperphos phatemia Take 1 (one) capsule by mouth 3 times daily with meals for 30 days Reasons: High Amount of Phosphate in the Blood 90 capsule 3 Active sevelamer carbonate (Renvela) 800 MG Take 3 (three) tablets by mouth 3 times daily with meals for 30 days 270 tablet 3 Active pantoprazole EC (Protonix) 40 MG tablet Take 1 (one) tablet by mouth daily before breakfast for 30 days 30 tablet 3 Active Active Problems Problem Noted Date Diagnosed [...] respiratory failure with hypoxia 07/18/2023 07/26/2023 Immunizations Immunization Administration Dates Next Due FLU VACCINE TRI [...] more drinks on one occasion? Never 07/22/2023 Comments Unknown Sex and Gender Information Value Date Recorded Sex Assigned at Not on file Legal Sex Female 8:55 AM SUPERVISOR PRODUCTION DEPARTMENT Gender Identity Not on file Sexual Orientation [...] 3:39 PM CDT Height 167.6 cm (5' 6) 09/10/2023 3:39 PM CDT Body Mass Index 28.89 09/10/2023 3:39 PM CDT Plan of Treatment Health Maintenance Due Date Last Done Comments HIV SCREENING 2000 HEPATITIS B VACCINE (1 of 3 - 19+ 3-dose series) 2004 PAP SMEAR 2006 COVID-19 VACCINE (4 - season) 2024 06/27/2022, 02/13/2021, 01/23/2021 DEPRESSION SCREENING 11/16/2024 MEDICARE AWV CALENDAR YEAR 2024 INFLUENZA VACCINE (Season Ended) 2025 08/12/2019, 10/14/2017, 08/20/2016, Additional history exists DTAP/TDAP/TD VACCINES (2 - Td or Tdap) 12/24/2026 12/24/2016 PNEUMOCOCCAL VACCINE (3 of 3 - PCV20 or PCV21) 2035 10/26/2019, 01/09/2016 ZOSTER VACCINE (1 of 2) 2035 HEPATITIS C SCREENING Completed 10/24/2023 , 10/19/2023, 09/21/2023, Additional history exists HIB VACCINE Aged Out No longer eligi ble based on patient's age to complete this topic HPV VACCINE Aged Out No longer eligi ble based on patient's age to complete this topic MENINGOCOCCAL (Group B) VACCINE SHARED DECISION-MAKING Aged Out No longer eligible based on patient's age to complete this topic MENINGOCOCCAL GROUPS A/C/Y/W VACCINE Aged Out No longer eligible based on patient's age to complete this topic Procedures Procedure Name Priority Date/Time Associated Diagnosis Comments HEPATITIS SCREEN ACUTE STAT 07/19/2023 3:50 AM CDT from Last 3 Months or Most Recently Relevant to Health Maintenance Results * HEPATITIS SCREEN ACUTE (07/19/2023 3:50 AM CDT) Hepatitis A Virus Antibody IgM Non-react jacquelin Non-reac tive 07/19/2023 9:52 AM CDT [facility] Hepatitis B Virus Surface Antigen Non-react jacquelin Non-reac tive 07/19/2023 9:52 AM CDT [facility] Hepatitis B Core Virus Antibody IgM Non-react jacquelin Non-reac tive 07/19/2023 9:52 AM CDT [facility] Hepatitis C Antibody Non-react jacquelin Non-reac tive 07/19/2023 9:52 AM T [facility] Comment:Hepatitis C Antibody screen indicates no serologic [...] CDT 07/19/2023 4:04 AM CDT Ian Olvera TRAVELERS' AID WORKER-LEAD PROJECT MANAGER LAB - CHEMISTRY ORDERA BLES Final Result [facility] [address] [place] [address], [facility] [phone] from Last 3 Months or Most Recently Relevant to Health Maintenance Insurance [place] UHC MANAGED MEDICARE ADV [place] * Guarantor: CELETSE WATERS Account Type Relation to Patient Date of Phone Billing Address Personal/Family [address] [place] [address] [place] - [place] U[place] MANAGED MEDICARE ADV * Guarantor: CELESTE WATERS Account Type Relation to Patient Date of Phone Billing Address Personal/Family [address] [place] [address] [place] UHC MANAGED MEDICARE ADV * Guarantor: KATLYNAMIE CARDENASJORGE Melgoza Type Relation to Patient Date of Phone Billing Address Personal/Family [address] [place] [address] [place] - [place] UHC MANAGED MEDICARE ADV Advance Directives * Full Code (Latest Code Status on File) Date Activated Date Inactivated Comments 08/06/2023 9:12 AM 08/08/2023 5:01 PM * Full Code Date Activated Date Inactivated Comments 07/19/2023 1:08 AM 07/26/2023 5:09 PM Care Teams Recreation Therapy Director Relationship Specialty [place] [address] [address] PCP - General Internal Medicine 12/04/17
[2025-05-03 12:28] LABS: Transferrin 131 mg/dL (206-381)
--- OUTSIDE RECORDS SUMMARY | 2025-05-03 12:59 | XMS_ITS | Continuity of Care Document ---
Author Organization [facility] Address [address] [place] [address] Phone Care Team Providers Care Client Program Manager Name Role Phone Sharon Bundy MD Unavailable [...] Ultra Test Strips patient test 1 by [facility].(Non-Drug; Combo Route) route 3 times every day [...] Diagnoses Date Provider Providers Copied on Encounter [facility], [address], [place], [place], [address] , [place] tel: [phone] [facility] No Information Apr- 7 Yemi Herrera. [address], [address], [place], [place], [address]. tel:[phone] [facility], [address], [place], [place], [address] , [place] tel: [phone] [facility] Diabetes with ophthalmic manifestations, type II or unspecified type, uncontrolled 0 3 Guillermo Regalado. [address], [place], [place], [address], [place]. tel:[phone] [facility], [address], [place], [place], [address] , [place] tel: [phone] [facility] Diabetes with ophthalmic manifestations, type II or unspecified type, uncontrolled 3 Guillermo Regalado. [address], [facility] [address], [place], [place], [address], [place]. tel:[phone] [facility], [address], [place], [place], [address] , [place] tel: [phone] [facility] Diabetes with ophthalmic manifestations, type II or unspecified type, uncontrolled 3 Guillermo Regalado. [address], [facility] [address], [place], [place], [address], [place]. tel:[phone] [facility], [address], [place], [place], [address] , [place] tel: [phone] [facility] Diabetes with ophthalmic manifestations, type II or unspecified type, uncontrolled 3 Guillermo Regalado. [address], [facility] [address], [place], [place], [address], [place]. tel:[phone] [facility], [address], [place], [place], [address] , [place] tel: [phone] [facility] Diabetes with ophthalmic manifestations, type II or unspecified type, uncontrolled 3 Guillermo Regalado. [address], [place], [place], [address], [place]. tel:[phone] [facility], [address], [place], [place], [address] , tel: [phone] [facility] DM (diabetes mellitus) type II uncontrolled with eBackground diabetic retinopathyUnspecifi ed essential hypertensionNEED FOR PROPHYLACTIC VACCINATION WITH COMBINED NGPVDEGENA-MCMGKYB-K ERTUSSIS (DTP) (DTAP) VACCINE 3 Guillermo Regalado. [address], [facility] [address], [place], [place], [address], [place]. tel:[phone] Referring Provider: Sharon Arias, [address] [place] [address] [address], [place], [address] . tel:[phone] [facility], [address], [place], [place], [address] , [place] tel: [phone] [facility] Hypertensive emergencyDiabetes with ophthalmic manifestations, type II or unspecified type, uncontrolledObesity, unspecifiedNon compliance w medication regimenRetinal hemorrhage 3 Yemi Herrera. [address], [facility] [address], [place], [place], [address]. tel:[phone] Referring Provider: Sharon Arias, [address] [place] [address] [address], [place], [address] . tel:[phone] [facility], [address], [place], [place], [address] , tel: [phone] [facility] Diabetes with ophthalmic manifestations, type II or unspecified type, uncontrolledBackgrou nd diabetic retinopathyObesity, unspecified 2 Yemi Herrera. [address], [facility] [address], [place], [place], [address]. tel:[phone] [facility], [address], [place], [place], [address] , [place] tel: [phone] [facility] No Information 2 Belchergibran Herrera. [facility] [place] [address], [place], [place], [address]. tel:[phone] [facility], [address], [place], [place], [address] , tel: [phone] [facility] Diabetes with ophthalmic manifestations, type II or unspecified type, uncontrolledObesity, unspecifiedRetinopat hy due to secondary diabetesBackground diabetic retinopathyObesity, unspecifiedRoutine general medical examination at a health care facilityNoncomplian e with diet and medication regimen 2 Belchergibran Herrera. [address], [facility] [address], [place], [place], [address]. tel:[phone] Referring Provider: Sharon Arias, [address], [place], [address] . tel:[phone] Family History Family Member Type Diagnosis Age At Onset Mother Problem (finding) diabetes melli tus in first degree relative Brother Problem (finding) diabetes melli tus in first degree relative Mother Problem (finding) hypertension Sister Problem (finding) diabetes melli tus in first degree relative Father Problem (finding) diabetes melli tus in first degree relative Immunizations Vaccine Date Status Comments Tdap administered Source: [facility] unization Record Payers Payer name Insurance type Covered democrat ID Authoriza tion(s) No Information Social History [...]
--- OUTSIDE RECORDS SUMMARY | 2025-05-03 12:59 | XMS_ITS | Encounter Summary ---
Author Organization [facility] Healthcare Address [address] [place] [address] Care Team Providers Care Physical Science Aide Name Role Phone Anna Cobian MD Primary Care Provid er Prakash Dash MD Unavailable [phone] Hilary Fontenot Unavailable Unavailable Srinivasa Herbert MD Unavailable Tina Winter [facility] Unavailable [phone] Leticia Thomas MD Unavailable Bernadette Billy Unavailable Encounter Details Date Type Department Care Team (Late st Contact Info) Description 11/19/2021 Telephone [facility] Radiology [address] [place], [place] [id number] Yany James RN Social History Tobacco Use [...] on file Legal Sex Female 7:07 PM ENT PHYSICIAN Gender Identity Not on file Sexual Orientation Not on file documented as of this encounter Plan of Treatment Not on file documented as of this encounter Visit Diagnoses Not on filedocumented in this encounter Additional Health Concerns Infection Onset Date Last Indicated Resolved Time COVID: Suspected 11/20/2021 11/20/2021 11/20/2021 11:06 PM ENT PHYSICIAN COVID19 11/20/2021 11/20/2021 12/04/2021 3:05 AM ENT PHYSICIAN COVID: Recovered Comment:Added based on recent COVID infection. 12/04/2021 12/05/2021 04/03/2022 3:05 AM C DT COVID: Suspected 06/02/2022 06/02/2022 06/02/2022 1:51 PM CDT COVID: Suspected 10/01/2022 10/01/2022 10/01/2022 4:30 PM ENT PHYSICIAN Influenza, adult 10/01/2022 10/01/2022 10/08/2022 3:05 AM ENT PHYSICIAN COVID: Suspected 10/23/2023 10/23/2023 10/23/2023 3:49 PM ENT PHYSICIAN RSV, droplet 10/23/2023 10/23/2023 10/30/2023 3:05 AM ENT PHYSICIAN Rhino/Enterovirus 10/23/2023 10/23/2023 10/30/2023 3:05 AM ENT PHYSICIAN COVID19 10/23/2023 10/23/2023 11/07/2023 3:05 AM ENT PHYSICIAN COVID: Recovered Comment:Added based on recent COVID infection. 11/07/2023 11/08/2023 02/05/2024 3:05 AM C DT COVID: Suspected 11/21/2023 11/21/2023 11/21/2023 4:31 PM ENT PHYSICIAN Abscess/Wound/Cellulitis 11/22/2023 11/22/2023 3:05 AM ENT PHYSICIAN documented as of this encounter Care Teams Physical Science Aide Relationship Specialty Start Date End Date Anna Cobian MD PCP - General 06/27/18 [place] [address] [place] [address] Consulting Physician Endocrinology 09/29/19 Hilary Fontenot Outpatient Hadoop Software Engineer 06/04/23 07/08/23 [place] [address] [place] [address] Consulting Physician Gastroenterology 06/06/23 Tina Winter, [facility] [address] [place] [address] Digital Press Operator Nephrology 08/10/23 Leticia Thomas MD [address] [facility] [place] [address] Consulting Physician Internal Medicine 10/28/23 Bernadette Billy [address] [place] [address] [facility] Outpatient Hadoop Software Engineer 11/25/23 12/06/23 documented as of this encounter
--- OUTSIDE RECORDS SUMMARY | 2025-05-03 12:59 | XMS_ITS | Encounter Summary ---
Author Organization [facility] Address [address] [place] [address] Phone Care Team Providers Care Production Supervisor Trainee Name Role Phone Anna Cobian MD Primary Care Provid er Anna Cobian MD Primary Care Provid er Sharon Bundy Primary Care Provider + Anna Cobian MD Primary Care Provid er Prakash Dash MD Unavailable [phone] Hilary Fontenot Unavailable Unavailable Srinivasa Herbert MD Unavailable Tina Winter [facility] Unavailable [phone] Leticia Thomas MD Unavailable Bernadette Bilyl Unavailable Encounter Details Date Type Department Care Team (Late st Contact Info) Description 11/28/2012 Orders Only [facility] Provider, MD Royer [address] [place] [address] Social History Tobacco Use Types Packs/Day Years Used Date Smoking Tobacco: Never Assessed Comments Unknown Sex and Gender Information Value Date Recorded Sex Assigned at Not on file Legal Sex Female 7:07 PM PROMOTIONAL ADVERTISING ASSISTANT Gender Identity Not on file Sexual [...] COVID: Suspected 12/28/2020 12/28/2020 12/29/2020 3:54 AM PROMOTIONAL ADVERTISING ASSISTANT Respiratory Infection (CHUY), contact + droplet Comment:Automatically added due to negative COVID-19 result. 12/29/2020 12/29/2020 01/12/2021 3:0 7 AM PROMOTIONAL ADVERTISING ASSISTANT COVID: Suspected 11/20/2021 11/20/2021 11/20/2021 11:06 PM PROMOTIONAL ADVERTISING ASSISTANT COVID19 11/20/2021 11/20/2021 12/04/2021 3:05 AM PROMOTIONAL ADVERTISING ASSISTANT COVID: Recovered Comment:Added based on recent COVID infection. 12/04/2021 12/05/2021 04/03/2022 3:05 AM C DT COVID: Suspected 06/02/2022 06/02/2022 06/02/2022 1:51 PM CDT COVID: Suspected 10/01/2022 10/01/2022 10/01/2022 4:30 PM PROMOTIONAL ADVERTISING ASSISTANT Influenza, adult 10/01/2022 10/01/2022 10/08/2022 3:05 AM PROMOTIONAL ADVERTISING ASSISTANT COVID: Suspected 10/23/2023 10/23/2023 10/23/2023 3:49 PM PROMOTIONAL ADVERTISING ASSISTANT RSV, droplet 10/23/2023 10/23/2023 10/30/2023 3:05 AM PROMOTIONAL ADVERTISING ASSISTANT Rhino/Enterovirus 10/23/2023 10/23/2023 10/30/2023 3:05 AM PROMOTIONAL ADVERTISING ASSISTANT COVID19 10/23/2023 10/23/2023 11/07/2023 3:05 AM PROMOTIONAL ADVERTISING ASSISTANT COVID: Recovered Comment:Added based on recent COVID infection. 11/07/2023 11/08/2023 02/05/2024 3:05 AM C DT COVID: Suspected 11/21/2023 11/21/2023 11/21/2023 4:31 PM PROMOTIONAL ADVERTISING ASSISTANT Abscess/Wound/Cellulitis 11/22/2023 11/22/2023 3:05 AM PROMOTIONAL ADVERTISING ASSISTANT documented as of this encounter Care Teams Production Supervisor Trainee Relationship Specialty Start Date End Date Anna Cobian MD PCP - General 01/31/17 04/21/17 Anna Cobian MD PCP - General 04/22/17 06/15/17 Sharon Bundy [address] [place] [address] [address] [place] [address] PCP - General 06/16/17 06/26/18 Anna Cobian MD PCP - General 06/27/18 [place] [address] [address] [facility] [facility] [address] [place] [address] Consulting Physician Endocrinology 09/29/19 Hilary Fontenot Outpatient Dental Technician Instructor 06/04/23 07/08/23 [place] [address] [address] [facility] [address] [place] [address] Consulting Physician Gastroenterology 06/06/23 Tina Winter, [facility] [address] [place] [address] Garment Form Assembler Nephrology 08/10/23 Leticia Thomas MD [address] [place] [address] Consulting Physician Internal Medicine 10/28/23 Billy, [address] [place] [address] [facility] Outpatient Dental Technician Instructor 11/25/23 12/06/23 documented as of this encounter
--- OUTSIDE RECORDS SUMMARY | 2025-05-03 12:59 | XMS_ITS | Encounter Summary ---
Author Organization [facility] Healthcare Address [address] [place] [address] Care Team Providers Care Criminal Justice Teacher Name Role Phone Anna Cobian MD Primary Care Provid er Prakash Dash MD Unavailable [phone] Srinivasa Herbert MD Unavailable Tina Winter [facility] Unavailable Leticia Thomas MD Unavailable Bernadette Billy Unavailable Encounter Details Date Type Department Care Team (Late st Contact Info) Description 08/26/2023 Treatment [facility] PATHOLOGY [address] [facility] 3rd [place] [address] Shobha Schuster MD PhD [address] [facility] [address] [phone] [place] [address] Social History Tobacco Use Types Packs/Day Years [...] often do you attend chur ch or jainism services? Never 08/20/2023 Do you belong to any clubs o r organizations such as zoroastrianism groups, unions, fraternal or athletic groups, or [...] Date Recorded PHQ-2 Total Score 0 08/20/2023 [facility] - [...] place to sleep or slept in a care home (including now)? No 06/26/2023 Comments No Sex and Gender Information Value Date Recorded Sex Assigned at Not on file Legal Sex Female 7:07 PM HRIS COORDINATOR Gender Identity Not on file Sexual Orientation [...] HD who presents as a transfer from [facility] d/t concern for compartment syndrome. Testing Information: [...] future transfusions. Contact Information: Please contact the [facility] Blood Bank with any questions. [...] COVID: Suspected 10/23/2023 10/23/2023 10/23/2023 3:49 PM HRIS COORDINATOR RSV, droplet 10/23/2023 10/23/2023 10/30/2023 3:05 AM HRIS COORDINATOR Rhino/Enterovirus 10/23/2023 10/23/2023 10/30/2023 3:05 AM HRIS COORDINATOR COVID19 10/23/2023 10/23/2023 11/07/2023 3:05 AM HRIS COORDINATOR COVID: Recovered Comment:Added based on recent COVID infection. 11/07/2023 11/08/2023 02/05/2024 3:05 AM C DT COVID: Suspected 11/21/2023 11/21/2023 11/21/2023 4:31 PM HRIS COORDINATOR Abscess/Wound/Cellulitis 11/22/2023 11/22/2023 3:05 AM HRIS COORDINATOR documented as of this encounter Care Teams Criminal Justice Teacher Relationship Specialty Start Date End Date Anna Cobian MD PCP - General 06/27/18 [place] [address] [facility] [address] [place] [address] Consulting Physician Endocrinology 09/29/19 [place] [address] [address] [facility] [address] [place] [address] Consulting Physician Gastroenterology 06/06/23 Tina Winter, AIRCRAFT TECHNICIAN [address] [place] [address] Senior Consultant Nephrology 08/10/23 Leticia Thomas MD [address] [place] [address] Consulting Physician Internal Medicine 10/28/23 Bernadette Billy [address] [place] [address] [facility] Outpatient Crate Tier 11/25/23 12/06/23 documented as of this encounter
--- OUTSIDE RECORDS SUMMARY | 2025-05-03 12:59 | XMS_ITS | Clinical Summary ---
Author Organization [facility] Address [address] [place] [address] Phone Care Team Providers Care Artificial Breeding Technician Name Role Phone Anna Cobian MD Primary [...] Advance Directives For more information, please contact: [phone] * Full Code (Latest Code Status on File) Date Activated Date Inactivated Comments 02/12/2018 7:06 AM 02/12/2018 10:20 AM Care Teams Artificial Breeding Technician Relationship Specialty Start Date End Date Anna Cobian MD PCP - General Internal Medicine 08/04/14
--- OUTSIDE RECORDS SUMMARY | 2025-05-03 12:59 | XMS_ITS | Encounter Summary ---
Author Organization [facility] Address [address] [place] [address] Phone Care Team Providers Care Drafting Layout Man Name Role Phone Anna Cobian MD Primary Care Provid er Prakash Dash MD Unavailable [phone] Hilary Fontenot Unavailable Unavailable Srinivasa Herbert MD Unavailable Tina Winter [facility] Unavailable [phone] Leticia Thomas MD Unavailable Bernadette Billy Unavailable Encounter Details Date Type Department Care Team (Late st Contact Info) Description 05/19/2023 Documentation [facility] Nephrology [address] [place] [id number] Deniz Moctezuma, QUOC Social History Tobacco [...] on file Legal Sex Female 7:07 PM MANAGER HEAVY DUTY Gender Identity Not on file Sexual Orientation [...] Body Mass Index 30.78 01/14/2022 9:19 AM MANAGER HEAVY DUTY documented in this encounter Plan of Treatment Not on file documented as of this encounter Visit Diagnoses Not on filedocumented in this encounter Additional Health Concerns Infection Onset Date Last Indicated Resolved Time COVID: Suspected 10/23/2023 10/23/2023 10/23/2023 3:49 PM MANAGER HEAVY DUTY RSV, droplet 10/23/2023 10/23/2023 10/30/2023 3:05 AM MANAGER HEAVY DUTY Rhino/Enterovirus 10/23/2023 10/23/2023 10/30/2023 3:05 AM MANAGER HEAVY DUTY COVID19 10/23/2023 10/23/2023 11/07/2023 3:05 AM MANAGER HEAVY DUTY COVID: Recovered Comment:Added based on recent COVID infection. 11/07/2023 11/08/2023 02/05/2024 3:05 AM C DT COVID: Suspected 11/21/2023 11/21/2023 11/21/2023 4:31 PM MANAGER HEAVY DUTY Abscess/Wound/Cellulitis 11/22/2023 11/22/2023 3:05 AM MANAGER HEAVY DUTY documented as of this encounter Care Teams Drafting Layout Man Relationship Specialty Start Date End Date Anna Cobian MD PCP - General 06/27/18 [place] [address] [address] Consulting Physician Endocrinology 09/29/19 Hilary Fontenot Outpatient Kick Press Setter 06/04/23 07/08/23 [place] [address] [address] Consulting Physician Gastroenterology 06/06/23 Tina Winter, [facility] [address] [place] [address] Grinder Operator Tool Nephrology 08/10/23 Leticia Thomas MD [address] [place] [address] Consulting Physician Internal Medicine 10/28/23 Bernadette Billy [address] [place] [address] [facility] Outpatient Kick Press Setter 11/25/23 12/06/23 documented as of this encounter
--- OUTSIDE RECORDS SUMMARY | 2025-05-03 13:01 | XMS_ITS | Clinical Summary ---
Author Organization [facility] Address [address] [place] [address] Care Team Providers Care Food Production Supervisor Name Role Phone Anna Cobian MD Primary Care Provid er Source Comments [facility],non-owned Affiliates and Associated Physician Practices is amultiple site organization consisting of ambulatory clinics and hospital sitesin [place], [place], [place] and [place]. This disclosure is being madepursuant to the Care Everywhere program and may not contain all information available regarding this patient. Last updated 18.[facility] Allergies No known active allergies Medications * [...] on file Legal Sex Female 8:55 AM BANKRUPTCY LAW SPECIALIST Gender Identity Not on file Sexual Orientation [...] jacquelin Non-reac tive 07/19/2023 9:52 AM CDT [facility] Hepatitis B Virus Surface Antigen Non-react jacquelin Non-reac tive 07/19/2023 9:52 AM CDT [facility] Hepatitis B Core Virus Antibody IgM Non-react jacquelin Non-reac tive 07/19/2023 9:52 AM CDT [facility] Hepatitis C Antibody Non-react jacquelin Non-reac tive 07/19/2023 9:52 AM T [facility] Comment:Hepatitis C Antibody screen indicates no [...] CDT 07/19/2023 4:04 AM CDT Ian Olvera PLAN EXAMINER-FLY FRAME TENDER [facility] - CHEMISTRY ORDERA BLES Final Result [facility] [address] [place] [address], [facility] [phone] from Last 3 Months or Most Recently Relevant to Health Maintenance Insurance [place] U[place] MANAGED MEDICARE AD[place] * Guarantor: CELESTE WATERS Account Type Relation to Patient Date of Phone Billing Address Personal/Family [address] [place] [address] [place] U[place] MANAGED MEDICARE ADV * Guarantor: CELESTE WATERS Account Type Relation to Patient Date of Phone Billing Address Personal/Family [address] [place] [address] [place] U[place] MANAGED MEDICARE ADV * Guarantor: KATLYNAMIE CARDENASJORGE Melgoza Type Relation to Patient Date of Phone Billing Address Personal/Family [address] [place] [address] [place] U[place] MANAGED MEDICARE ADV Advance Directives * Full Code (Latest Code Status on File) Date Activated Date Inactivated Comments 08/06/2023 9:12 AM 08/08/2023 5:01 PM * Full Code Date Activated Date Inactivated Comments 07/19/2023 1:08 AM 07/26/2023 5:09 PM Care Teams Food Production Supervisor Relationship Specialty [place] [address] [address] PCP - General Internal Medicine 12/04/17
--- OUTSIDE RECORDS SUMMARY | 2025-05-03 13:01 | XMS_ITS ---
Author Organization [facility] Address [address] [place] [phone] Care Team Providers Care Police Detention Attendant Name Role Phone Anna Cobian MD Primary Care Provid er Prakash Dash MD Unavailable [phone] Srinivasa Herbert MD Unavailable Tina Winter [facility] Unavailable [phone] Leticia Thomas MD Unavailable Dialysis Access Sites Type Status Location Placement Date Removal Da te AV fistula Active Left Upper Arm - Anterior 06/20/2019 Procedures Procedure Name Priority Date/Time Associated Diagnosis Comments HEPATITIS C ANTIBODY Routine 12/21/2023 12:00 AM RECORDAK OPERATOR ESRD (end stage renal disease) (HCC) EGFR Routine 11/26/2023 2:50 AM RECORDAK OPERATOR HEMOGLOBIN A1C 11/18/2023 12:00 AM RECORDAK OPERATOR LIPID PANEL STAT 08/19/2023 1:29 AM CDT [...] pen needle, diabetic (Lite Touch Insulin Pen [place]) 31 gauge x 3/16 needleIndication s:Diabetes Mellitus [...] (07/24/2023): Added automatically from request for surgery [id number] Hypertensive urgency 09/25/2019 Assessment & Plan (09/25/2019 3:43 PM RECORDAK OPERATOR): 222/116 upon admit. S/p IV hydralazine with improvement to 173/97. Resume home enalapril bid. Prn IV enalapril while NPO. Elevated brain natriuretic peptide (BNP) level 1 11/25/2018 Assessment & Plan (09/25/2019 3:44 PM RECORDAK OPERATOR): No history of CHF. BNP 1877 on admit. Initial troponin 30. Will obtain echo and evaluate. Continue serial troponin. Telemetry monitoring. Anemia 09/25/2019 Assessment & Plan (09/25/2019 3:45 PM RECORDAK OPERATOR): H&H is at her baseline. Will follow. Leukocytosis 09/25/2019 Assessment & Plan (09/25/2019 3:50 PM RECORDAK OPERATOR): Possibly reactive. Check UA and CXR. Influenza A/B negative. Labs in am. Diabetic ketoacidosis withou t coma associated with type 2 diabetes mellitus 08/10/2019 Assessment & Plan (09/25/2019 3:51 PM RECORDAK OPERATOR): Currently on insulin stabilizer. IVF. NPO. Endocrinology has been consulted for which we appreciate their evaluation and recommendations. A1c 10.0 in 07/2019. Intractable vomiting 08/10/2019 SHELLI-inhibitor cough 08/10/2019 Hyperosmolar non-ketotic sta te in patient with type 2 diabetes mellitus 06/08/2019 Cholelithiasis 06/08/2019 Gastroparesis 04/15/2019 Neuropathy 04/14/2019 GERD (gastroesophageal reflux disease) 9 Assessment & Plan (09/25/2019 3:45 PM RECORDAK OPERATOR): PPI. Diabetes mellitus 04/14/2019 Abdominal pain, generalized 04/13/2019 Overview (04/14/2019): Added automatically from request for surgery [id number] Intractable cyclical vomiting with nausea 2018 Overview (04/14/2019): Added automatically from request for surgery [id number] Essential hypertension 02/02/2019 Renal osteodystrophy 01/28/2019 Diarrhea 06/28/2018 Nausea and vomiting 06/28/2018 Assessment & Plan (09/25/2019 3:40 PM RECORDAK OPERATOR): Suspect gastroparesis exacerbation. Prn Reglan IV. IVF. [...] drink = 0.6 oz pur e alcohol) [facility] Utilities Answer Date Recorded In the past 12 months has e [employer], gas, oil, or water [employer] threatened to shut off services in your [...] How often do you attend chur or yazdanism services? More than 4 times per year 11/25/2023 Do you belong to any clubs o r organizations such as sikhism groups, unions, fraternal or athletic groups, or [...] Date Recorded PHQ-2 Total Score 0 08/20/2023 [facility] of Occupat ional Health - Occupational [...] place to sleep or slept in a senior care (including now)? No 11/25/2023 Personal Safety Answer Date Recorded Have you ever been in or are you currently in a harmful physical or emotional relationship or is someone making you feel afraid or unsafe? Denies 12/10/2023 Comments No Sex and Gender Information Value Date Recorded Sex Assigned at Not on file Legal Sex Female 7:07 PM RECORDAK OPERATOR Gender Identity Not on file Sexual Orientation Not on file Last Filed Vital Signs Vital Sign Reading Time Taken Comments Blood Pressure 211/110 12/21/2023 4:26 PM RECORDAK OPERATOR Pulse 75 12/21/2023 4:26 PM RECORDAK OPERATOR Temperature 36.7 C (98 F) 12/10/2023 9:15 AM RECORDAK OPERATOR Respiratory Rate 16 12/10/2023 9:15 AM RECORDAK OPERATOR Oxygen Saturation 100% 12/10/2023 9:15 AM RECORDAK OPERATOR Inhaled Oxygen Concentration - - Weight 78.5 kg (173 lb) 12/10/2023 9:15 AM RECORDAK OPERATOR Height 167.6 cm (5' 6) 12/10/2023 9:15 AM RECORDAK OPERATOR Body Mass Index 27.92 12/10/2023 9:15 AM RECORDAK OPERATOR Results * Hepatitis C antibody Serum (12/21/2023 12:00 AM RECORDAK OPERATOR) Hep C Ab Nonreactive Nonreactive [facility] Comment:No HCV antibody dete cted.The above test result was obtained using Siemens [employer]aur XPchemiluminescent method. Results obtained with different assay methodsor kits cannot be used interchangeably. HCV s/co ratio 0.07 0.00 - 0.79 [facility] Comment:s/co ratio Interpret ation Supplemental testing<0.80 Nonreactive No further testing required.0.80-0.99 Equivocal HCV RNA Quantitative Real-Time PCRis recommended.1.00->11.00 Reactive HCV RNA Quantitative Real-Time PCRis recommended to distinguish active from resolvedcases. Serum 12/21/2023 12/23/2023 Narrative [facility] - 12/23/2023 2:28 PM RECORDAK OPERATOR Unless otherwise specified, test(s) performed at:[facility], [address] [place] [address] [id number] DIRECTOR: Jordan Woodard M.D. Landy Rdz MD LAB MICROBIOLOGY - G ENERAL ORDERABLES Final Result Performing Organization Address City/[facility] Co de Phone Number Robin * eGFR (11/26/2023 2:50 AM RECORDAK OPERATOR) eGFR 16 mL/min/1. 73 m2 [facility] Comment: [...] last reviewed 2021. Blood 11/26/2023 2:50 AM RECORDAK OPERATOR 11/26/2023 3:38 AM RECORDAK OPERATOR Landy Rdz MD LAB BLOOD ORDERABLES Final Result [facility] [address] [address] Department [place] [address] * (ABNORMAL) Hemoglobin A1c (11/18/2023 12:00 AM RECORDAK OPERATOR) Hemoglobin A1C 7.9(H) 4.8 - 5.9 % [facility] Blood 11/18/2023 11/19/2023 Narrative [facility] - 11/20/2023 12:11 PM RECORDAK OPERATOR Unless otherwise specified, test(s) performed at:[facility], [address] [place], [place] [id number] DIRECTOR: Jordan Woodard M.D. us Not[employer] Unknown LAB BLOOD ORDERABLES Final Res ult Robin * Lipid panel (08/19/2023 1:29 AM CDT) Cholesterol 93 30 - 199 mg/dL [facility] Comment: Interpretive Data Ages < [...] on 2018. Triglycerides 44 <=149 mg/dL [facility] Comment: Interpretive Data Ages < [...] on 2018. HDL 53 >=40 mg/dL [facility] Comment: Interpretive Data Ages < [...] 2018. LDL, calculated 31 <=129 mg/dL [facility] Comment: Interpretive Data Ages < [...] revised on 2018. Non-HDL Cholesterol 40 mg/dL [facility] Comment: Interpretive Data Ages < [...] last revised on 2018. Chol/HDL ratio 2 [facility] Blood 08/19/2023 1:29 AM CDT 08/19/2023 1:53 AM CDT Katherine Galdamez MD LAB BLOOD ORDERABLES Final Re sult [facility] Department [place] [address] from Last 3 Months or Most Recently Relevant to Health Maintenance
--- OUTSIDE RECORDS SUMMARY | 2025-05-03 13:01 | XMS_ITS | Clinical Summary ---
Author Organization [facility] Address [address] [place] [address] Care Team Providers Care Clinical Education Assistant Name Role Phone Anna Cobian MD Primary Care Provid er Prakash Dash MD Unavailable [phone] Srinivasa Herbert MD Unavailable Tina Winter [facility] Unavailable [phone] Leticia Thomas MD Unavailable Allergies No known [...] pen needle, diabetic (Lite Touch Insulin Pen [place]) 31 gauge x 3/16 needleIndication s:Diabetes Mellitus [...] (07/24/2023): Added automatically from request for surgery [id number] Hypertensive urgency 09/25/2019 Assessment & Plan (09/25/2019 3:43 PM [employer]): 222/116 upon admit. S/p IV hydralazine with improvement to 173/97. Resume home enalapril bid. Prn IV enalapril while NPO. Elevated brain natriuretic peptide (BNP) level 1 11/25/2018 Assessment & Plan (09/25/2019 3:44 PM [employer]): No history of CHF. BNP 1877 on admit. Initial troponin 30. Will obtain echo and evaluate. Continue serial troponin. Telemetry monitoring. Anemia 09/25/2019 Assessment & Plan (09/25/2019 3:45 PM [employer]): H&H is at her baseline. Will follow. Leukocytosis 09/25/2019 Assessment & Plan (09/25/2019 3:50 PM [employer]): Possibly reactive. Check UA and CXR. Influenza A/B negative. Labs in am. Diabetic ketoacidosis withou t coma associated with type 2 diabetes mellitus 08/10/2019 Assessment & Plan (09/25/2019 3:51 PM [employer]): Currently on insulin stabilizer. IVF. NPO. Endocrinology has been consulted for which we appreciate their evaluation and recommendations. A1c 10.0 in 07/2019. Intractable vomiting 08/10/2019 SHELLI-inhibitor cough 08/10/2019 Hyperosmolar non-ketotic sta te in patient with type 2 diabetes mellitus 06/08/2019 Cholelithiasis 06/08/2019 Gastroparesis 04/15/2019 Neuropathy 04/14/2019 GERD (gastroesophageal reflux disease) 9 Assessment & Plan (09/25/2019 3:45 PM [employer]): PPI. Diabetes mellitus 04/14/2019 Abdominal pain, generalized 04/13/2019 Overview (04/14/2019): Added automatically from request for surgery [id number] Intractable cyclical vomiting with nausea 2018 Overview (04/14/2019): Added automatically from request for surgery [id number] Essential hypertension 02/02/2019 Renal osteodystrophy 01/28/2019 Diarrhea 06/28/2018 Nausea and vomiting 06/28/2018 Assessment & Plan (09/25/2019 3:40 PM [employer]): Suspect gastroparesis exacerbation. Prn Reglan IV. IVF. NPO. Prn analgesics. Hyperkalemia 01/09/2016 Proteinuria 01/09/2016 Esophageal candidiasis Right upper quadrant abdominal pain Hyperglycemia Resolved Problems Problem Noted Date Diagnosed Date Resolved Date Anemia of chronic disease 07/19/2023 Anemia of chronic renal failure 06/02/2023 07/24/2023 Stage 5 chronic kidney disea se not on chronic dialysis 05/26/2019 07/24/2023 Overview (05/26/2019): Added automatically from request for surgery [id number] Assessment & Plan (09/25/2019 3:42 PM [employer]): S/p AV fistula placement 06/2019. Nephrology has [...] often do you attend chur ch or hoahaoism services? More than 4 times per year 11/25/2023 Do you belong to any clubs o r organizations such as rastafari groups, unions, fraternal or athletic groups, or [...] Date Recorded PHQ-2 Total Score 0 08/20/2023 [facility] of Occupat ional Health - Occupational Stress [...] place to sleep or slept in a chcf (including now)? No 11/25/2023 Personal Safety Answer Date Recorded Have you ever been in or are you currently in a harmful physical or emotional relationship or is someone making you feel afraid or unsafe? Denies 12/10/2023 Comments No Sex and Gender Information Value Date Recorded Sex Assigned at Not on file Legal Sex Female 7:07 PM [employer] Gender Identity Not on file Sexual Orientation Not on file Obstetrics History Last Filed Vital Signs Vital Sign Reading Time Taken Comments Blood Pressure 211/110 12/21/2023 4:26 PM [employer] Pulse 75 12/21/2023 4:26 PM [employer] Temperature 36.7 C (98 F) 12/10/2023 9:15 AM [employer] Respiratory Rate 16 12/10/2023 9:15 AM [employer] Oxygen Saturation 100% 12/10/2023 9:15 AM [employer] Inhaled Oxygen Concentration - - Weight 78.5 kg (173 lb) 12/10/2023 9:15 AM [employer] Height 167.6 cm (5' 6) 12/10/2023 9:15 AM [employer] Body Mass Index 27.92 12/10/2023 9:15 AM [employer] Plan of Treatment Health Maintenance Due Date [...] HEPATITIS C ANTIBODY Routine 12/21/2023 12:00 AM [employer] ESRD (end stage renal disease) (HCC) EGFR Routine 11/26/2023 2:50 AM [employer] HEMOGLOBIN A1C 11/18/2023 12:00 AM [employer] LIPID PANEL STAT 08/19/2023 1:29 AM CDT from Last 3 Months or Most Recently Relevant to Health Maintenance Results * Hepatitis C antibody Serum (12/21/2023 12:00 AM [employer]) Hep C Ab Nonreactive Nonreactive [facility] [...] active from resolvedcases. Serum 12/21/2023 12/23/2023 Narrative [facility] - 12/23/2023 2:28 PM [employer] Unless otherwise specified, test(s) performed at:[facility], [address] [place], [place] [id number] DIRECTOR: Jordan Woodard M.D. Landy Rdz MD LAB MICROBIOLOGY - G ENERAL ORDERABLES Final Result [facility] * eGFR (11/26/2023 2:50 AM [employer]) Pathologist [facility] eGFR 16 mL/min/1. 73 m2 [facility] Comment: [...] last reviewed 2021. Blood 11/26/2023 2:50 AM [employer] 11/26/2023 3:38 AM [employer] Landy Rdz MD LAB BLOOD ORDERABLES Final Result Performing Organization Address City/[facility]/ZIP Co de Phone Number [facility] [address] Department [place] [address] * (ABNORMAL) Hemoglobin A1c (11/18/2023 12:00 AM [employer]) Hemoglobin A1C 7.9(H) 4.8 - 5.9 % [facility] Blood 11/18/2023 11/19/2023 Narrative [facility] - 11/20/2023 12:11 PM [employer] Unless otherwise specified, test(s) performed at:[facility], [address] [place], [place] [address]LABORATORY DIRECTOR: Jordan Woodard M.D. Not[employer] Unknown LAB BLOOD ORDERABLES Final Res ult Performing Organization Address [facility] de Phone Number [facility] * Lipid panel (08/19/2023 1:29 AM CDT) [...] LAB BLOOD ORDERABLES Final Re sult [facility] Department [place] [address] from Last 3 Months or Most Recently Relevant to Health Maintenance Insurance [employer] [facility] DUAL [employer]PLETE [id number] [facility] Advance Directives For more information, please contact: [phone] * Full Code (Latest Code Status on [...] 10:56 PM 06/06/2023 4:40 PM Care Teams Clinical Education Assistant Relationship Specialty Start Date End Date Anna Cobian MD PCP - General 06/27/18 [place] [address] [address] [facility] [address] [place] [address] Consulting Physician Endocrinology 09/29/19 [place] [address] [address] [place] [address] Consulting Physician Gastroenterology 06/06/23 Tina Winter, [facility] [address] [place] [address] [employer] Member Nephrology 08/10/23 Leitcia Thomas MD [address] [address] Consulting Physician Internal Medicine 10/28/23
--- OUTSIDE RECORDS SUMMARY | 2025-05-03 13:01 | XMS_ITS | Encounter Summary ---
Author Organization [facility] Address [address] [place] [address] Phone Care Team Providers Care Overhead Crane Inspector Name Role Phone Anna Cobian MD Primary Care Provid er Prakash Dash MD Unavailable [phone] Hilary Fontenot Unavailable Unavailable Srinivasa Herbert MD Unavailable Tina Winter [facility] Unavailable [phone] Leticia Thomas MD Unavailable Bernadette Billy Unavailable Encounter Details Date Type Department Care Team (Late st Contact Info) Description 02/28/2020 Orders Only [facility] Nephrology [address] [place] [id number] Zeke Singer Jr., RN Cough (Primary [...] on file Legal Sex Female 7:07 PM VARNISH BLENDER Gender Identity Not on file Sexual Orientation Not on file documented as of this encounter Progress Notes * Zeke Singer Jr., RN - 02/28/2020 10:55 AM CDT covid documented in this encounter Plan of Treatment Not on file documented as of this encounter Results * COVID-19 Coronavirus RNA Nasopharyngeal (02/28/2020 10:58 AM CDT) [facility] COVID-19 RNA Not Detected DEEPAK PATEL Comment: Interpretive Data Testing performed at [facility] Molecular Infectious Disease Laboratory. The 2019-Novel Coronavirus [...] CDT 02/28/2020 4:05 PM CDT Narrative [facility] - 02/29/2020 2:15 AM CDT Does the patient meet the testing requirements described in the process instructions above?->Yes Saeid Alcala MD LAB MICROBIOLOGY - GENERAL ORDERABLES Final Result [facility] Department [place] [address] documented in this encounter Visit Diagnoses Diagnosis Cough- Primary Cough documented in this encounter Additional Health Concerns Infection Onset Date Last Indicated Resolved Time COVID: Suspected 02/28/2020 02/28/2020 03/13/2020 3:05 AM CDT COVID: Suspected 12/28/2020 12/28/2020 12/29/2020 3:54 AM VARNISH BLENDER Respiratory Infection (CHUY), contact + droplet Comment:Automatically added due to negative COVID-19 result. 12/29/2020 12/29/2020 01/12/2021 3:0 7 AM VARNISH BLENDER COVID: Suspected 11/20/2021 11/20/2021 11/20/2021 11:06 PM VARNISH BLENDER COVID19 11/20/2021 11/20/2021 12/04/2021 3:05 AM VARNISH BLENDER COVID: Recovered Comment:Added based on recent COVID infection. 12/04/2021 12/05/2021 04/03/2022 3:05 AM C DT COVID: Suspected 06/02/2022 06/02/2022 06/02/2022 1:51 PM CDT COVID: Suspected 10/01/2022 10/01/2022 10/01/2022 4:30 PM VARNISH BLENDER Influenza, adult 10/01/2022 10/01/2022 10/08/2022 3:05 AM VARNISH BLENDER COVID: Suspected 10/23/2023 10/23/2023 10/23/2023 3:49 PM VARNISH BLENDER RSV, droplet 10/23/2023 10/23/2023 10/30/2023 3:05 AM VARNISH BLENDER Rhino/Enterovirus 10/23/2023 10/23/2023 10/30/2023 3:05 AM VARNISH BLENDER COVID19 10/23/2023 10/23/2023 11/07/2023 3:05 AM VARNISH BLENDER COVID: Recovered Comment:Added based on recent COVID infection. 11/07/2023 11/08/2023 02/05/2024 3:05 AM C DT COVID: Suspected 11/21/2023 11/21/2023 11/21/2023 4:31 PM VARNISH BLENDER Abscess/Wound/Cellulitis 11/22/2023 11/22/2023 3:05 AM VARNISH BLENDER documented as of this encounter Care Teams Overhead Crane Inspector Relationship Specialty Start Date End Date Anna Cobian MD PCP - General 06/27/18 [place] [id number] [address] Consulting Physician Endocrinology 09/29/19 Hilary Fontenot [facility] Outpatient Law Instructor 06/04/23 07/08/23 [place] [address] [id number] [place] [address] Consulting Physician Gastroenterology 06/06/23 Tina Winter, [facility] [address] [place] [address] Parts Room Associate Nephrology 08/10/23 Leticia Thomas MD [address] [place] [address] Consulting Physician Internal Medicine 10/28/23 Bernadette Billy [id number] [place] [address] [employer] Outpatient Law Instructor 11/25/23 12/06/23 documented as of this encounter
--- OUTSIDE RECORDS SUMMARY | 2025-05-03 13:01 | XMS_ITS | Encounter Summary ---
Author Organization [facility] Address [address] [place] [address] Phone Care Team Providers Care Supervisor Cytogenetic Laboratory Name Role Phone Anna Cobian MD Primary Care Provid er Prakash Dash MD Unavailable [phone] Hilary Fontenot Unavailable Unavailable Srinivasa Herbert MD Unavailable Tina Winter [facility] Unavailable [phone] Leticia Thomas MD Unavailable Bernadette Billy Unavailable Encounter Details Date Type Department Care Team (Late st Contact Info) Description 06/30/2022 Treatment [facility] Nephrology [address] [place] [phone] Zeke Singer Jr., RN Social History [...] on file Legal Sex Female 7:07 PM MATTE CUTTER Gender Identity Not on file Sexual Orientation Not on file documented as of this encounter Plan of Treatment Not on file documented as of this encounter Visit Diagnoses Not on filedocumented in this encounter Additional Health Concerns Infection Onset Date Last Indicated Resolved Time COVID: Suspected 10/01/2022 10/01/2022 10/01/2022 4:30 PM MATTE CUTTER Influenza, adult 10/01/2022 10/01/2022 10/08/2022 3:05 AM MATTE CUTTER COVID: Suspected 10/23/2023 10/23/2023 10/23/2023 3:49 PM MATTE CUTTER RSV, droplet 10/23/2023 10/23/2023 10/30/2023 3:05 AM MATTE CUTTER Rhino/Enterovirus 10/23/2023 10/23/2023 10/30/2023 3:05 AM MATTE CUTTER COVID19 10/23/2023 10/23/2023 11/07/2023 3:05 AM MATTE CUTTER COVID: Recovered Comment:Added based on recent COVID infection. 11/07/2023 11/08/2023 02/05/2024 3:05 AM C DT COVID: Suspected 11/21/2023 11/21/2023 11/21/2023 4:31 PM MATTE CUTTER Abscess/Wound/Cellulitis 11/22/2023 11/22/2023 3:05 AM MATTE CUTTER documented as of this encounter Care Teams Supervisor Cytogenetic Laboratory Relationship Specialty Start Date End Date Anna Cobian MD PCP - General 06/27/18 [place] [id number] [address] [facility] [address] [place] [address] Consulting Physician Endocrinology 09/29/19 Hilary Fontenot Outpatient Bus Assistant 06/04/23 07/08/23 [place] [address] [facility] [address] [address] Consulting Physician Gastroenterology 06/06/23 Tina Winter, ASSOCIATE PROFESSOR PL[employer] PATHOLOGY [address] [place] [address] Corporate Counselor Nephrology 08/10/23 Leticia Thomas MD [address] [place] [address] Consulting Physician Internal Medicine 10/28/23 Bernadette Billy[address] [place] [address] CHAP Outpatient Bus Assistant 11/25/23 12/06/23 documented as of this encounter
--- OUTSIDE RECORDS SUMMARY | 2025-05-03 13:01 | XMS_ITS | Referral Summary ---
Author Organization [facility] Address [address] [place] [phone] Care Team Providers Care Lasting Floorworker Name Role Phone Anna Cobian MD Primary Care Provid er Prakash Dash MD Unavailable [phone] Srinivasa Herbert MD Unavailable Tina Winter [facility] Unavailable [phone] Leticia Thomas MD Unavailable Allergies No known [...] pen needle, diabetic (Lite Touch Insulin Pen Roca) 31 gauge x 3/16 needleIndication s:Diabetes Mellitus [...] (07/24/2023): Added automatically from request for surgery [id number] Hypertensive urgency 09/25/2019 Assessment & Plan (09/25/2019 3:43 PM LOAN AND CREDIT MANAGER): 222/116 upon admit. S/p IV hydralazine with improvement to 173/97. Resume home enalapril bid. Prn IV enalapril while NPO. Elevated brain natriuretic peptide (BNP) level 1 11/25/2018 Assessment & Plan (09/25/2019 3:44 PM LOAN AND CREDIT MANAGER): No history of CHF. BNP 1877 on admit. Initial troponin 30. Will obtain echo and evaluate. Continue serial troponin. Telemetry monitoring. Anemia 09/25/2019 Assessment & Plan (09/25/2019 3:45 PM LOAN AND CREDIT MANAGER): H&H is at her baseline. Will follow. Leukocytosis 09/25/2019 Assessment & Plan (09/25/2019 3:50 PM LOAN AND CREDIT MANAGER): Possibly reactive. Check UA and CXR. Influenza A/B negative. Labs in am. Diabetic ketoacidosis withou t coma associated with type 2 diabetes mellitus 08/10/2019 Assessment & Plan (09/25/2019 3:51 PM LOAN AND CREDIT MANAGER): Currently on insulin stabilizer. IVF. NPO. Endocrinology has been consulted for which we appreciate their evaluation and recommendations. A1c 10.0 in 07/2019. Intractable vomiting 08/10/2019 SHELLI-inhibitor cough 08/10/2019 Hyperosmolar non-ketotic sta te in patient with type 2 diabetes mellitus 06/08/2019 Cholelithiasis 06/08/2019 Gastroparesis 04/15/2019 Neuropathy 04/14/2019 GERD (gastroesophageal reflux disease) 9 Assessment & Plan (09/25/2019 3:45 PM LOAN AND CREDIT MANAGER): PPI. Diabetes mellitus 04/14/2019 Abdominal pain, generalized 04/13/2019 Overview (04/14/2019): Added automatically from request for surgery [id number] Intractable cyclical vomiting with nausea 2018 Overview (04/14/2019): Added automatically from request for surgery [id number] Essential hypertension 02/02/2019 Renal osteodystrophy 01/28/2019 Diarrhea 06/28/2018 Nausea and vomiting 06/28/2018 Assessment & Plan (09/25/2019 3:40 PM LOAN AND CREDIT MANAGER): Suspect gastroparesis exacerbation. Prn Reglan IV. IVF. NPO. Prn analgesics. Hyperkalemia 01/09/2016 Proteinuria 01/09/2016 Esophageal candidiasis Right upper quadrant abdominal pain Hyperglycemia Resolved Problems Problem Noted Date Diagnosed Date Resolved Date Anemia of chronic disease 07/19/2023 Anemia of chronic renal failure 06/02/2023 07/24/2023 Stage 5 chronic kidney disea se not on chronic dialysis 05/26/2019 07/24/2023 Overview (05/26/2019): Added automatically from request for surgery [id number] Assessment & Plan (09/25/2019 3:42 PM LOAN AND CREDIT MANAGER): S/p AV fistula placement 06/2019. Nephrology has [...] drink = 0.6 oz pur e alcohol) [facility] Utilities Answer Date Recorded In the past 12 months has e [employer], gas, oil, or water company threatened to [...] How often do you attend chur or christianity services? More than 4 times per year 11/25/2023 Do you belong to any clubs o r organizations such as taoism groups, unions, fraternal or athletic groups, or [...] Date Recorded PHQ-2 Total Score 0 08/20/2023 [facility] - Occupational [...] on file Legal Sex Female 7:07 PM LOAN AND CREDIT MANAGER Gender Identity Not on file Sexual Orientation Not on file Last Filed Vital Signs Vital Sign Reading Time Taken Comments Blood Pressure 211/110 12/21/2023 4:26 PM LOAN AND CREDIT MANAGER Pulse 75 12/21/2023 4:26 PM LOAN AND CREDIT MANAGER Temperature 36.7 C (98 F) 12/10/2023 9:15 AM LOAN AND CREDIT MANAGER Respiratory Rate 16 12/10/2023 9:15 AM LOAN AND CREDIT MANAGER Oxygen Saturation 100% 12/10/2023 9:15 AM LOAN AND CREDIT MANAGER Inhaled Oxygen Concentration - - Weight 78.5 kg (173 lb) 12/10/2023 9:15 AM LOAN AND CREDIT MANAGER Height 167.6 cm (5' 6) 12/10/2023 9:15 AM LOAN AND CREDIT MANAGER Body Mass Index 27.92 12/10/2023 9:15 AM LOAN AND CREDIT MANAGER Plan of Treatment Not on file Procedures Procedure Name Priority Date/Time Associated Diagnosis Comments HEPATITIS C ANTIBODY Routine 12/21/2023 12:00 AM LOAN AND CREDIT MANAGER ESRD (end stage renal disease) (HCC) EGFR Routine 11/26/2023 2:50 AM LOAN AND CREDIT MANAGER HEMOGLOBIN A1C 11/18/2023 12:00 AM LOAN AND CREDIT MANAGER LIPID PANEL STAT 08/19/2023 1:29 AM CDT from Last 3 Months or Most Recently Relevant to Health Maintenance Results * Hepatitis C antibody Serum (12/21/2023 12:00 AM LOAN AND CREDIT MANAGER) Hep C Ab Nonreactive Nonreactive [facility] Comment:No HCV antibody dete cted.The above test result was obtained using Siemens [employer] XPchemiluminescent method. Results obtained with different assay methodsor kits cannot be used interchangeably. HCV s/co ratio 0.07 0.00 - 0.79 [facility] Comment:s/co ratio Interpret ation Supplemental testing<0.80 Nonreactive No further testing required.0.80-0.99 Equivocal HCV RNA Quantitative Real-Time PCRis recommended.1.00->11.00 Reactive HCV RNA Quantitative Real-Time PCRis recommended to distinguish active from resolvedcases. Serum 12/21/2023 12/23/2023 Narrative [facility] - 12/23/2023 2:28 PM LOAN AND CREDIT MANAGER Unless otherwise specified, test(s) performed at:[facility], [address] [place], [place] [address]LABORATORY DIRECTOR: Jordan Woodard M.D. Landy Rdz MD LAB MICROBIOLOGY - G ENERAL ORDERABLES Final Result [facility] * eGFR (11/26/2023 2:50 AM LOAN AND CREDIT MANAGER) eGFR 16 mL/min/1. 73 m2 DEEPAK Comment: [...] last reviewed 2021. Blood 11/26/2023 2:50 AM LOAN AND CREDIT MANAGER 11/26/2023 3:38 AM LOAN AND CREDIT MANAGER us Landy Rdz MD LAB BLOOD ORDERABLES Final Result DEEPAK [id number] [address] Department [place] [address] * (ABNORMAL) Hemoglobin A1c (11/18/2023 12:00 AM LOAN AND CREDIT MANAGER) Hemoglobin A1C 7.9(H) 4.8 - 5.9 % [facility] Blood 11/18/2023 11/19/2023 Narrative [facility] - 11/20/2023 12:11 PM LOAN AND CREDIT MANAGER Unless otherwise specified, test(s) performed at:[facility], [address] [place], [place] [id number] DIRECTOR: Jordan Woodard M.D. us Notinfile Unknown LAB BLOOD ORDERABLES Final Res ult Performing Organization Address City/[facility]/ZIP Co de Phone Number ADOR * Lipid panel (08/19/2023 1:29 AM CDT) Cholesterol 93 30 - 199 mg/dL [facility]EE[facility] Comment: Interpretive Data Ages < [...] revised on 2018. Triglycerides 44 <=149 mg/dL [facility] Comment: Interpretive Data Ages < [...] revised on 2018. HDL 53 >=40 mg/dL [facility] Comment: Interpretive Data Ages < [...] on 2018. LDL, calculated 31 <=129 mg/dL [facility] Comment: Interpretive Data Ages < [...] revised on 2018. Non-HDL Cholesterol 40 mg/dL [facility] Comment: Interpretive Data Ages < [...] LAB BLOOD ORDERABLES Final Re sult DEEPAK [facility] [place] [address] from Last 3 Months or Most Recently Relevant to Health Maintenance Insurance [place] [employer] [facility] DUAL COMPLETE [id number] [facility] Advance Directives For more information, please contact: [phone] * Full Code (Latest Code Status on [...] 10:56 PM 06/06/2023 4:40 PM Care Teams Lasting Floorworker Relationship Specialty Start Date End Date Anna Cobian MD PCP - General 06/27/18 [place] [address] [facility] [address] [place] [address] Consulting Physician Endocrinology 09/29/19 [place] [address] [address] [facility] [address] [place] [address] Consulting Physician Gastroenterology 06/06/23 Tina Winter, SHIPBOARD INTELLIGENCE ANALYST [address] [address] Bi Technical Lead Nephrology 08/10/23 Leticia Thomas MD [address] [address] Consulting Physician Internal Medicine 10/28/23
--- NOTE | 2025-05-03 13:17 | P.HP_ITS ---
H&P: HPI History of Present Illness Date/Time: 05/03/25 13:17 Chief Complaint: Vomiting blood and dark tardy stools Narrative: 39-year-old female past medical history of type 1 diabetes, end-stage renal disease on dialysis, CHF, PUD on hypertension presents the hospital with hemoptysis and dark tardy stools. Due to patient being upset about NG tube she gets little information. She states that she is tired of being sick and she does not want to be in the hospital any more. She does not understand why she has NG tube. Patient denies fever chills. She states that she missed dialysis due to weakness. NAD she has a hemoglobin of 6.0, potassium 6.3, BUN of 118, creatinine of 13 point time, glucose of 245, calcium 7.1, TB ICU 195, saturation 58%, ferritin 853, [place] [address]. Chest x-ray shows Increasing groundglass opacities in the bilateral lungs which could represent pulmonary edema, pneumonia or atelectasis. KUB shows NG tube in stomach. Patient is being admitted for acute GI bleed and emergent dialysis. Review of Systems Review of Systems: 12 systems were reviewed and are negativ e except for as per HPI. [facility] Past Medical History Medical History (Updated 05/03/25 @ 18:54 by Uziel Lundy MD) Epistaxis Melena Acute on chronic anemia Gastroparesis CHF (congestive heart failure) Anemia Reactive airway disease PUD (peptic ulcer disease) Peripheral neuropathy GERD (gastroesophageal reflux disease) Hypertension Cannabis use disorder Type 1 diabetes Arteriovenous fistula for hemodialysis in place, primary End stage renal disease on dialysis Surgical History Surgical History (Updated 05/05/24 @ 14:29 by Shruthi Melton RN) Hx laparoscopic cholecystectomy lap robina, Da Robin assisted 04/05/24 S/P arteriovenous (AV) fistula creation History of appendectomy Family History Family History (Updated 05/03/25 @ 14:54 by Marlen España RN) Father Diabetes mellitus Mother Diabetes mellitus Sibling Diabetes mellitus Gastric bypass status for obesity Social History Social History Smoking packs per day: 0.5 Smoking cigarettes per day: 10.0 Years smoked: 24 Smoking pack-years: 12.00 Smoking status: Current every day smoker Tobacco type: cigarettes Alcohol intake: never Drinks per week: 0 Substance use: current Substance use type: marijuana Other substance usage details: not very often Last use: Tara Do You Feel Safe in your Home?: Yes Lack of Transportation: No Lack of Food: Never True Current Housing: I Have Housing Concerned About Future Housing: No Difficulty Paying Gas/Electric Bills: No Difficulty Paying for Meds: No Currently Unemployed: No Education: High School Diploma/GED Difficulty w/ Childcare or Family Care: No Living arrangements: with family Spiritual care concerns: No Meds Home Medications and Allergies Home Medications ?Medication ?Instructions ?Recorded ?Confirmed ?Type amlodipine 10 mg tablet 10 mg PO DAILY 03/21/24 05/03/25 History atorvastatin 10 mg tablet 10 mg PO DAILY 03/21/24 05/03/25 History carvedilol 25 mg tablet 25 mg PO BID 03/21/24 05/03/25 History gabapentin 400 mg capsule 400 mg PO TID 03/21/24 05/03/25 History losartan 100 mg tablet 100 mg PO DAILY 03/21/24 05/03/25 History pantoprazole 40 mg tablet,delayed 40 mg PO DAILY 03/21/24 05/03/25 History release calcium acetate(phosphat bind) 667 1,334 mg PO TID 03/22/24 05/03/25 History mg capsule ferrous sulfate 325 mg (65 mg 325 mg PO DAILY #10 tabs 03/22/24 05/03/25 Rx iron) tablet insulin aspart U-100 100 unit/mL 3 unit (0.03 mL) subcut TIDWM #15 03/22/24 05/03/25 Rx (3 mL) subcutaneous pen (Novolog mL FlexPen U-100 Insulin aspart) metoclopramide HCl 10 mg tablet 10 mg PO Q6H PRN nausea and 09/20/24 05/03/25 Rx (Reglan) vomiting #20 tabs trazodone 100 mg tablet See Rx Instructions .Route 12/01/24 05/03/25 Rx .COMPLEX #90 tabs albuterol sulfate 90 mcg/actuation 2 puff inhalation DAILY PRN 05/03/25 05/03/25 History aerosol inhaler shortness of breath or wheezing hydralazine 25 mg tablet 25 mg PO DAILY 05/03/25 05/03/25 History insulin degludec 100 unit/mL (3 20 unit subcut QPM 05/03/25 05/03/25 History mL) subcutaneous pen (Tresiba FlexTouch U-100 insulin) Allergies Allergy/AdvReac Type Severity Reaction Status Date / Time No Known Allergies Allergy Verified 09/20/24 08:28 Vital Signs Vital Signs - 24 hr 05/03/25 11:02 05/03/25 11:15 05/03/25 12:01 Temperature 97.6 F 97.8 F Pulse Rate 95 94 91 Respiratory Rate 20 18 20 Blood Pressure 181/85 H 179/91 H 178/101 H Pulse Oximetry 92 92 79 L Oxygen Delivery Room Air Room Air Oxygen Flow Rate 05/03/25 12:15 Temperature Pulse Rate Respiratory Rate Blood Pressure Pulse Oximetry 100 Oxygen Delivery Nasal Cannula Oxygen Flow Rate 4 Exam Narrative: General: well appearing, appears stated age. HEENT: normocephalic, atraumatic. Mucous membranes moist. EOMI, PERRLA, bilateral sclera anicteric, no conjunctival injection. Neck supple without JVD, lymphadenopathy, or bruit. Respiratory: clear to ascultation bilaterally. No rales/rhonic/wheezes. Cardiovascular: Regular rate and rhythm, normal S1-S2 upon ascultation. No murmurs, rubs, or clicks. PMI is nondisplaced, capillary refill less than 3 second. Abdomen: Soft, round, no pulsatile masses, nondistended and nontender. No rebound, no guarding. No CVA tenderness, no hepatosplenomegaly. Bowel sounds present to all four quadrants. No high pitch or tinkling sounds, resonant to percussion. Extremities: No cyanosis, clubbing, or edema present. Pulses are palpable 2/2. Active ROM to all four extremities. Neuro: Alert and orientated x 4. PERRLA. Cranial nerves 2-12 intact without focal deficit. Skin: Warm, dry, and intact, without rash, erythema, or lesion. Psych: pleasant, cooperative, normal speech, normal affect, no hallucinations, no dysarthia Fistula on left arm H&P: Results Labs Labs: Short CBC 05/03/25 Range/Units 11:13 WBC 6.4 (4.5-10.0) K/mm3 Hgb 6.0 L* D (12.0-15.0) g/dL Hct 18.5 L* (37.0-47.0) % Plt Count 152 (150-375) k/mm3 BMP 05/03/25 11:13 Sodium 139 Potassium 6.3 H* Chloride 101 Carbon Dioxide 15 L BUN 118 H* D Creatinine 13.10 H Glucose 245 H Calcium 7.1 L Liver Function 05/03/25 Range/Units 11:13 Total Bilirubin 0.6 (0.2-1.3) mg/dL AST 36 (14-36) U/L ALT 20 (6-35) U/L Alkaline Phosphatase 134 H (38-126) U/L Albumin 4.1 (3.5-5.1) g/dL Assessment and Plan Assessment and plan (1) Acute upper GI bleed: Code(s): K92.2 - Gastrointestinal hemorrhage, unspecified Status: Acute Assessment and Plan: GI consulted Protonix Transfuse 2 units RBC Q.6 are H&H Transfuse for hemoglobin less than 7 or symptomatic Blood transfusion delayed due to patient having antibodies (2) End stage renal disease on dialysis: Code(s): N18.6 - End stage renal disease; Z99.2 - Dependence on renal dialysis Status: Acute Assessment and Plan: Nephrology consulted Emergent dialysis (3) Hypertension: Code(s): I10 - Essential (primary) hypertension Status: Chronic Assessment and Plan: Uncontrolled hypertension dialysis will follow trends after dialysis Hydralazine p.r.n. Patient complained of headache blurriness and numbness after hydralazine. Her pressure dropped about [address] done with no acute findings MRI pending Patient is not a good candidate for thrombolytics due to being hit GI bleed with a critical hemoglobin and difficult to match blood with a delayed blood transfusion already will continue monitor. (4) Hyperkalemia: Code(s): E87.5 - Hyperkalemia Status: Acute Assessment and Plan: Insulin and bicarb given emergency room Emergent dialysis (5) Anemia: Code(s): D64.9 - Anemia, unspecified Status: Chronic Assessment and Plan: Acute on chronic due to end-stage renal disease See plan above (6) Type 1 diabetes: Code(s): E10.9 - Type 1 diabetes mellitus without complications Status: Chronic Assessment and Plan: Patient is NPO D5 NS Accu-Cheks q.6 Home Lantus ordered for tomorrow night Quality VTE Prophylaxis VTE prophylaxis: mechanical ordered If No VTE Prophylaxis Answer both mechanical and pharmacologic: Reason no pharmacologic proph: medical contraindication Hospitalist MIPS Advance Care Plan I have confirmed that the patient's Advanced Care Plan is present, code status is documented, or surrogate decision maker is listed in patient medical record.: Yes Medication Reconciliation I have utilized all available resources to obtain, update and review the patients current medications (includes all prescriptions, OTC, herbals, cannabis, and nutritional supplements).: Yes
[2025-05-03 13:28] LABS: Folic Acid 5.3 ng/mL (2.76->20)
[2025-05-03 13:45] LABS: Hepatitis B Surface Antigen Negative (Negative)
[2025-05-03 14:20] LABS: Hepatitis B Surface Anti Res Positive
--- NOTE | 2025-05-03 14:26 | P.CONNP_ITS ---
Assessment and Plan Assessment and plan (1) End stage renal disease: Code(s): N18.6 - End stage renal disease Status: Chronic Assessment and Plan: * HD today * continue outpatient schedule of Thu/Thu/Thursday * follow electrolytes, volume status, and clearance (2) Acute upper GI bleed: Code(s): K92.2 - Gastrointestinal hemorrhage, unspecified Status: Acute Assessment and Plan: * as noted by history * GI consulted * PRBC transfusion per protocol * follow trend of H/H (3) Hyperkalemia: Code(s): E87.5 - Hyperkalemia Status: Acute Assessment and Plan: * due to noncompliance with dialysis * s/p medical mangement * HD today (4) Hypertension: Code(s): I10 - Essential (primary) hypertension Status: Chronic Assessment and Plan: * quite erratic at baseline * pain issues maybe playing a role as well * will restart carvedilol and losartan (home medications) * may require PRN medications as well (5) Anemia: Code(s): D64.9 - Anemia, unspecified Status: Chronic Assessment and Plan: * due to ESRD and complicated by #2 * Epogen with HD * follow trend of H/H (6) Type 1 diabetes: Code(s): E10.9 - Type 1 diabetes mellitus without complications Status: Chronic Assessment and Plan: * follow accu-cheks * glycemic control per hospitalist I will continue follow the patient with you while she remains hospitalized and make further recommendations as deemed necessary. Thank you for allowing me to participate in the care of this patient. L History of Present Illness Reason for Consult Consult date: 05/03/25 Reason for consult: end stage renal disease Chief Complaint Chief complaint: hyperkalemia,gi bleeding,anemia History of Present Illness Narrative: The patient is a 39-year-old female past medical history as outlined below who presented to the ERl with hemoptysis and dark tardy stools. Getting a full and complete history from the patient is somewhat difficult as she is somewhat upset by the fact that she has NG tube in place. Hence, most of the information I have obtained is from review of the electronic medical record as well as my personal experience taking care of the patient before in the past. She states that she is tired of being sick and she does not want to be in the hospital any more. She does not understand why she has NG tube. Patient denies fever chills. She states that she missed dialysis due to weakness (however, she missed almost a whole week of dialysis). Workup and evaluation emergency room demonstrated the patient be hemodynamically stable in no acute distress. Routine blood test demonstrated a hemoglobin of 6.0, potassium 6.3, BUN of 118, creatinine of 13 point time, glucose of 245, calcium 7.1, TB ICU 195, saturation 58%, ferritin 853, [place] [address]. Chest x-ray shows Increasing groundglass opacities in the bilateral lungs which could represent pulmonary edema, pneumonia or atelectasis. KUB shows NG tube in stomach. Patient was admitted for acute GI bleed and dialysis. Renal consultation was requested due to her end-stage renal disease. The patient is somewhat familiar to me as I take care of her outpatient dialysis needs. She currently dialyzes on a Thursday, Thursday, Thursday schedule at [facility] dialysis under my care but has not started there as of yet as she just back into town from a month long vacation. Her compliance with dialysis has always been a issues as noted by the above history. Currently, at the time my visit, she is tolerating her dialysis treatment without issue (seen on HD at 2:15pm). Review of Systems 2 Review of Systems: As per HPI. [facility] Past Medical History Medical History (Updated 05/04/25 @ 13:34 by Evelina Friend MD) Numbness of right hand Epistaxis Melena Acute on chronic anemia Gastroparesis CHF (congestive heart failure) Anemia Reactive airway disease PUD (peptic ulcer disease) Peripheral neuropathy GERD (gastroesophageal reflux disease) Hypertension Cannabis use disorder Type 1 diabetes Arteriovenous fistula for hemodialysis in place, primary End stage renal disease on dialysis Surgical History Surgical History Hx laparoscopic cholecystectomy lap robina, Da Robin assisted 04/05/24 S/P arteriovenous (AV) fistula creation History of appendectomy Family History Family History Father Diabetes mellitus Mother Diabetes mellitus Sibling Diabetes mellitus Gastric bypass status for obesity Social History Social History Smoking packs per day: 0.5 Smoking cigarettes per day: 10.0 Years smoked: 24 Smoking pack-years: 12.00 Smoking status: Current every day smoker Tobacco type: cigarettes Alcohol intake: never Drinks per week: 0 Substance use: current Substance use type: marijuana Other substance usage details: not very often Last use: Tara Do You Feel Safe in your Home?: Yes Lack of Transportation: No Lack of Food: Never True Current Housing: I Have Housing Concerned About Future Housing: No Difficulty Paying Gas/Electric Bills: No Difficulty Paying for Meds: No Currently Unemployed: No Education: High School Diploma/GED Difficulty w/ Childcare or Family Care: No Living arrangements: with family Spiritual care concerns: No Meds Home Medications and Allergies Home Medications ?Medication ?Instructions ?Recorded ?Confirmed ?Type amlodipine 10 mg tablet 10 mg PO DAILY 03/21/24 05/03/25 History atorvastatin 10 mg tablet 10 mg PO DAILY 03/21/24 05/03/25 History carvedilol 25 mg tablet 25 mg PO BID 03/21/24 05/03/25 History gabapentin 400 mg capsule 400 mg PO TID 03/21/24 05/03/25 History losartan 100 mg tablet 100 mg PO DAILY 03/21/24 05/03/25 History calcium acetate(phosphat bind) 667 1,334 mg PO TID 03/22/24 05/03/25 History mg capsule ferrous sulfate 325 mg (65 mg 325 mg PO DAILY #10 tabs 03/22/24 05/03/25 Rx iron) tablet insulin aspart U-100 100 unit/mL 3 unit (0.03 mL) subcut TIDWM #15 03/22/24 05/03/25 Rx (3 mL) subcutaneous pen (Novolog mL FlexPen U-100 Insulin aspart) metoclopramide HCl 10 mg tablet 10 mg PO Q6H PRN nausea and 09/20/24 05/03/25 Rx (Reglan) vomiting #20 tabs trazodone 100 mg tablet See Rx Instructions .Route 12/01/24 05/03/25 Rx .COMPLEX #90 tabs albuterol sulfate 90 mcg/actuation 2 puff inhalation DAILY PRN 05/03/25 05/03/25 History aerosol inhaler shortness of breath or wheezing hydralazine 25 mg tablet 25 mg PO DAILY 05/03/25 05/03/25 History insulin degludec 100 unit/mL (3 20 unit subcut QPM 05/03/25 05/03/25 History mL) subcutaneous pen (Tresiba FlexTouch U-100 insulin) pantoprazole 40 mg tablet,delayed 40 mg PO BID #60 tabs 05/05/25 05/03/25 Rx release Allergies Allergy/AdvReac Type Severity Reaction Status Date / Time No Known Allergies Allergy Verified 05/04/25 14:06 Vital Signs Vital Signs Temp Pulse Resp BP Pulse Ox O2 Del Method O2 Flow Rate 05/03/25 14:16 90 202/100 H 05/03/25 14:05 2 05/03/25 14:05 97.7 F 94 18 192/89 H 93 05/03/25 14:00 93 05/03/25 13:23 98.4 F 99 22 H 188/88 H 91 05/03/25 12:50 98.0 F 91 24 H 184/102 H 96 05/03/25 12:15 100 Nasal Cannula 4 05/03/25 12:01 91 20 178/101 H 79 L 05/03/25 11:15 97.8 F 94 18 179/91 H 92 Room Air 05/03/25 11:02 97.6 F 95 20 181/85 H 92 Room Air Exam 2 Narrative: GENERAL APPEARANCE: mildly ill-appearing but well developed well nourished female in no acute distress HEENT: normocephalic, atraumatic, normal conjunctiva and sclera, nares patient NECK: no lymphadenopathy, thyromegaly, or JVD MOUTH: normal lips, teeth, and gums CARDIOVASCULAR: RRR, normal S1 and S2, no rub RESPIRATORY: coarse breath sounds ABDOMEN: soft, nontender, nondistended, positive bowel sounds present EXTREMITIES: no evidence of cyanosis, clubbing; trace edema NEUROLOGICAL: sleepy/lethargic but awakens with stimulation; CN II - XII intact bilaterally; no focal deficits noted Results Lab Results 05/05/25 04:25 05/05/25 04:25 Lab results: Most recent lab results Calcium 7.1 mg/dL (8.4-10.2) L 05/03/25 11:13
[2025-05-03] MEDS: EPOETIN ALFA-EPBX 20,000 UNITS/ML VIAL 20000 UNITS IV PUSH (14:59)
--- NOTE | 2025-05-03 15:36 | ADMGEN ---
This patient, Celeste Waters, was admitted to IMU Room 212-01 at 1306. Patient/family oriented to hospital policies and general routines including ID bracelet, bed and alarms, visiting hours, pain management, procedures, bathroom and other care routines, personal items, smoking policy, room service/diet, and visiting hours. Information on how to activate the Rapid Response Team has been discussed. Patient/Family are encouraged to report perceived risks to care and to ask questions if they do not understand what they are told or what they should do.
[2025-05-03] MEDS: hydrALAZINE HCL 20 MG/ML VIAL 10 MG IV PUSH (18:26)
--- NOTE | 2025-05-03 18:50 | P.CONGI_ITS ---
Assessment and Plan Assessment and plan (1) Acute on chronic anemia: Code(s): D64.9 - Anemia, unspecified Status: Acute Assessment and Plan: she has underlying anemia from renal disease but this time also melena, ? unsure if also had epistaxis regardless she needs EGD tomorrow to assess if upper gi source, then will remove NGT iv protonix keep hgb>7 (2) Melena: Code(s): K92.1 - Melena Status: Acute (3) End stage renal disease: Code(s): N18.6 - End stage renal disease Status: Chronic Assessment and Plan: getting now urgent dialysis, her K was high and she missed 6 days of dialysis (4) Hyperkalemia: Code(s): E87.5 - Hyperkalemia Status: Acute (5) Type 1 diabetes: Code(s): E10.9 - Type 1 diabetes mellitus without complications Status: Chronic (6) Epistaxis: Code(s): R04.0 - Epistaxis Status: Acute GI Consult Note Consult date/time: 05/03/25 18:50 Reason for consult: melena HPI: Celeste Waters is a 39 year old female history of ESRD on dialysis (missed for 6 days because recently moved here), chronic anemia, apparently gastric ulcer, DM. Here with dark stools and coffee ground emesis but report also of epistaxis. NGT placed and also epistaxis. Hgb 6, currently also on dialysis because of uremia. Started on iv protonix. Review of Systems 2 Constitutional: Constitutional: Reports fatigue ENT: Reports Normal hearing present and Reports epistaxis Cardiovascular: Cardiovascular: Denies chest pain Respiratory: Respiratory: Reports dyspnea Gastrointestinal: Gastrointestinal: Reports melena Genitourinary: Comments: on dialysis Musculoskeletal: Musculoskeletal: Denies neck pain Integumentary/Breasts: Skin/Breast: Denies rash Neurologic: Denies Abnormal speech present [facility] Past Medical History Medical History (Updated 05/03/25 @ 18:54 by Uziel Lundy MD) Epistaxis Melena Acute on chronic anemia Gastroparesis CHF (congestive heart failure) Anemia Reactive airway disease PUD (peptic ulcer disease) Peripheral neuropathy GERD (gastroesophageal reflux disease) Hypertension Cannabis use disorder Type 1 diabetes Arteriovenous fistula for hemodialysis in place, primary End stage renal disease on dialysis Surgical History Surgical History (Updated 05/05/24 @ 14:29 by Shruthi Melton RN) Hx laparoscopic cholecystectomy lap robina, Da Robin assisted 04/05/24 S/P arteriovenous (AV) fistula creation History of appendectomy Family History Family History (Updated 05/03/25 @ 14:54 by Marlen España RN) Father Diabetes mellitus Mother Diabetes mellitus Sibling Diabetes mellitus Gastric bypass status for obesity Social History Social History Smoking packs per day: 0.5 Smoking cigarettes per day: 10.0 Years smoked: 24 Smoking pack-years: 12.00 Smoking status: Current every day smoker Tobacco type: cigarettes Alcohol intake: never Drinks per week: 0 Substance use: current Substance use type: marijuana Other substance usage details: not very often Last use: Tara Do You Feel Safe in your Home?: Yes Lack of Transportation: No Lack of Food: Never True Current Housing: I Have Housing Concerned About Future Housing: No Difficulty Paying Gas/Electric Bills: No Difficulty Paying for Meds: No Currently Unemployed: No Education: High School Diploma/GED Difficulty w/ Childcare or Family Care: No Living arrangements: with family Spiritual care concerns: No Meds Home Medications and Allergies Home Medications ?Medication ?Instructions ?Recorded ?Confirmed ?Type amlodipine 10 mg tablet 10 mg PO DAILY 03/21/24 05/03/25 History atorvastatin 10 mg tablet 10 mg PO DAILY 03/21/24 05/03/25 History carvedilol 25 mg tablet 25 mg PO BID 03/21/24 05/03/25 History gabapentin 400 mg capsule 400 mg PO TID 03/21/24 05/03/25 History losartan 100 mg tablet 100 mg PO DAILY 03/21/24 05/03/25 History pantoprazole 40 mg tablet,delayed 40 mg PO DAILY 03/21/24 05/03/25 History release calcium acetate(phosphat bind) 667 1,334 mg PO TID 03/22/24 05/03/25 History mg capsule ferrous sulfate 325 mg (65 mg 325 mg PO DAILY #10 tabs 03/22/24 05/03/25 Rx iron) tablet insulin aspart U-100 100 unit/mL 3 unit (0.03 mL) subcut TIDWM #15 03/22/24 05/03/25 Rx (3 mL) subcutaneous pen (Novolog mL FlexPen U-100 Insulin aspart) metoclopramide HCl 10 mg tablet 10 mg PO Q6H PRN nausea and 09/20/24 05/03/25 Rx (Reglan) vomiting #20 tabs trazodone 100 mg tablet See Rx Instructions .Route 12/01/24 05/03/25 Rx .COMPLEX #90 tabs albuterol sulfate 90 mcg/actuation 2 puff inhalation DAILY PRN 05/03/25 05/03/25 History aerosol inhaler shortness of breath or wheezing hydralazine 25 mg tablet 25 mg PO DAILY 05/03/25 05/03/25 History insulin degludec 100 unit/mL (3 20 unit subcut QPM 05/03/25 05/03/25 History mL) subcutaneous pen (Tresiba FlexTouch U-100 insulin) Allergies Allergy/AdvReac Type Severity Reaction Status Date / Time No Known Allergies Allergy Verified 09/20/24 08:28 Vital Signs Vital Signs - 24 hr 05/03/25 11:02 05/03/25 11:15 05/03/25 12:01 Temperature 97.6 F 97.8 F Pulse Rate 95 94 91 Respiratory Rate 20 18 20 Blood Pressure 181/85 H 179/91 H 178/101 H Pulse Oximetry 92 92 79 L Oxygen Delivery Room Air Room Air Oxygen Flow Rate 05/03/25 12:15 05/03/25 12:50 05/03/25 13:23 Temperature 98.0 F 98.4 F Pulse Rate 91 99 Respiratory Rate 24 H 22 H Blood Pressure 184/102 H 188/88 H Pulse Oximetry 100 96 91 Oxygen Delivery Nasal Cannula Oxygen Flow Rate 4 05/03/25 14:00 05/03/25 14:05 05/03/25 14:05 Temperature 97.7 F Pulse Rate 93 94 Respiratory Rate 18 Blood Pressure 192/89 H Pulse Oximetry 93 Oxygen Delivery Oxygen Flow Rate 2 05/03/25 14:16 05/03/25 14:30 05/03/25 14:43 Temperature Pulse Rate 90 90 94 Respiratory Rate Blood Pressure 202/100 H 205/105 H 206/109 H Pulse Oximetry Oxygen Delivery Oxygen Flow Rate 05/03/25 15:00 05/03/25 15:15 05/03/25 15:30 Temperature Pulse Rate 93 91 93 Respiratory Rate Blood Pressure 219/104 H 206/110 H 216/107 H Pulse Oximetry Oxygen Delivery Oxygen Flow Rate 05/03/25 15:47 05/03/25 16:00 05/03/25 16:15 Temperature Pulse Rate 89 90 89 Respiratory Rate Blood Pressure 194/97 H 210/99 H 193/96 H Pulse Oximetry Oxygen Delivery Oxygen Flow Rate 05/03/25 16:30 05/03/25 16:49 05/03/25 17:00 Temperature Pulse Rate 92 96 94 Respiratory Rate Blood Pressure 206/100 H 214/104 H 208/102 H Pulse Oximetry Oxygen Delivery Oxygen Flow Rate 05/03/25 17:15 05/03/25 17:30 05/03/25 17:49 Temperature Pulse Rate 93 95 96 Respiratory Rate Blood Pressure 209/105 H 226/104 H 213/100 H Pulse Oximetry Oxygen Delivery Oxygen Flow Rate 05/03/25 18:03 Temperature 98.2 F Pulse Rate 93 Respiratory Rate 16 Blood Pressure 218/104 H Pulse Oximetry 94 Oxygen Delivery Oxygen Flow Rate Exam 2 Const: General: comfortable and no acute distress Other: chronically ill appearing HENMT: Other: NGT in place, Rt nares with packing Eyes: General: appearance normal, both eyes and all related structures Neck: Neck: supple Resp: Auscultation: clear to auscultation bilaterally Cardio: Rate: regular rate Rhythm: regular rhythm GI: Inspection: non-distended GI Palp: Yes Soft to palpation and No Tenderness to palpation present (GI) Skin: General skin exam: no rashes or lesions noted Neuro: Speech: normal speech Motor exam (neuro): 5/5 motor strength present throughout Extrem: General: normal to inspection Psych: Mental Status: mental status grossly normal Results Labs 05/03/25 11:13 05/03/25 11:13 Labs: Short CBC 05/03/25 Range/Units 11:13 WBC 6.4 (4.5-10.0) K/mm3 Hgb 6.0 L* D (12.0-15.0) g/dL Hct 18.5 L* (37.0-47.0) % Plt Count 152 (150-375) k/mm3 BMP 05/03/25 11:13 Sodium 139 Potassium 6.3 H* Chloride 101 Carbon Dioxide 15 L BUN 118 H* D Creatinine 13.10 H Glucose 245 H Calcium 7.1 L Liver Function 05/03/25 Range/Units 11:13 Total Bilirubin 0.6 (0.2-1.3) mg/dL AST 36 (14-36) U/L ALT 20 (6-35) U/L Alkaline Phosphatase 134 H (38-126) U/L Albumin 4.1 (3.5-5.1) g/dL
[2025-05-03 19:09] LABS: Glucose Point of Care 84 mg/dl (65-105)
[2025-05-03 20:09] LABS: MRSA (PCR) NOT DETECTED (NOT DETECTE)
[2025-05-03] MEDS: LORazepam INJ (*CRX) 2 MG/ML VIAL 0.5 MG IV PUSH (20:17)
[2025-05-03] MEDS: DEXTROSE 5%/0.9% SOD CHL 1,000 ML 60 ML IV CONT (20:20)
[2025-05-03 20:38] LABS: Hematocrit 18.8 % (37.0-47.0); Hemoglobin 6.2 g/dL (12.0-15.0)
[2025-05-03 23:38] LABS: Glucose Point of Care 122 mg/dl (65-105)
[2025-05-04] VITALS (27 sets, daily range): BP systolic 119–179; BP diastolic 62–92; PULSE 76–104; RESP 13–20; TEMP 36.2–37.5; O2SAT 90–100
[2025-05-04] MEDS: SODIUM CHLORIDE 0.9% IV 250 ML 30 ML IV CONT (00:02)
[2025-05-04 00:21] LABS: Potassium 4.2 mmol/L (3.4-5.0)
[2025-05-04] MEDS: SODIUM CHLORIDE 0.9% IV 250 ML 30 ML (03:38)
[2025-05-04] MEDS: ACETAMINOPHEN 325 MG TABLET 650 MG PO (05:05)
[2025-05-04 07:05] LABS: Basophils Absolute Auto 0.1 K/mm3 (0.0-0.1); Basophils Percent Auto 0.8 % (0.2-1.2); Eosinophils Absolute Auto 0.3 K/mm3 (0-0.3); Eosinophils Percent Auto 4.7 % (0-4.4); Hematocrit 23.6 % (37.0-47.0); Hemoglobin 7.7 g/dL (12.0-15.0); Immature Granulocyte Absolute 0.03 K/mm3 (0.00-0.031); Immature Granulocyte Percent A 0.5 % (0-0.5); Lymphocytes Absolute Auto 0.81 K/mm3 (0.9-3.2); Lymphocytes Percent Auto 12.2 % (18.3-44.2); Mean Corpuscular HGB Conc 32.6 g/dl (32-36); Mean Corpuscular Hemoglobin 29.2 pg (26-34); Mean Corpuscular Volume 89.4 fl (80-100); Mean Platelet Volume 9.9 fl (7.4-10.4); Monocytes Absolute Auto 0.3 K/mm3 (0.1-0.6); Monocytes Percent Auto 4.1 % (2.6-8.5); Neutrophils Absolute Auto 5.2 K/mm3 (1.3-6.7); Neutrophils Percent Auto 77.7 % (45.5-73.1); Platelet Count Result 165 k/mm3 (150-375); Red Blood Count 2.64 M/mm3 (4.2-5.4); Red Cell Distribution Width 15.6 % (11.5-14.5); White Blood Count 6.6 K/mm3 (4.5-10.0)
[2025-05-04 07:15] LABS: Anion Gap 14 mmol/L (4-12); Blood Urea Nitrogen 54 mg/dL (7-17); Calcium 8.1 mg/dL (8.4-10.2); Carbon Dioxide 23 mmol/L (22-30); Chloride 101 mmol/L (98-107); Estimated CRCL calculation 10 ml/min; Estimated Glomerular Filt Rate 6; Glucose 185 mg/dL (65-110); Potassium 4.7 mmol/L (3.4-5.0); Sodium 138 mmol/L (137-145)
[2025-05-04 07:52] LABS: Serum Qual hCG Negative
[2025-05-04 07:53] LABS: SPREG INTERNAL CONTROL Positive
[2025-05-04] MEDS: amLODIPine BESYLATE 10 MG TABLET PO (09:06)
[2025-05-04] MEDS: carvediloL 25 MG TABLET PO ×2 (09:06→17:06)
[2025-05-04] MEDS: PANTOPRAZOLE SODIUM IV 40 MG VIAL IV PUSH (09:06)
[2025-05-04] MEDS: hydrALAZINE HCL 25 MG TABLET PO (09:06)
[2025-05-04] MEDS: LOSARTAN POTASSIUM 100 MG TABLET PO (09:06)
[2025-05-04 11:59] LABS: Glucose Point of Care 204 mg/dl (65-105)
--- NOTE | 2025-05-04 13:28 | P.CONNEU_ITS ---
Assessment and Plan Assessment and plan (1) Numbness of right hand: Code(s): R20.0 - Anesthesia of skin Status: Acute Assessment and Plan: With IV I doubt this to be the cause of numbness in the hand however patient is since that this is all started because IVs. She may have underlying Peripheral nerve entrapment such as carpal tunnel syndrome or cubital tunnel syndrome which may have become symptomatic. I did not find any sensory loss in the distribution of lateral or medial cutaneous nerve of the forearm. Remainder of the examination findings were unremarkable. I would suggest that if the her symptoms persist a nerve conduction study and EMG of the right upper limb may be helpful upon stabilization of her current medical problems and can be done as an outpatient. I noted that she had an MRI of the brain done today which did not show any significant abnormalities. I reviewed the MRI films and agree with the findings. (2) Type 1 diabetes: Code(s): E10.9 - Type 1 diabetes mellitus without complications Status: Chronic (3) Epistaxis: Code(s): R04.0 - Epistaxis Status: Acute (4) Acute upper GI bleed: Code(s): K92.2 - Gastrointestinal hemorrhage, unspecified Status: Acute (5) End stage renal disease on dialysis: Code(s): N18.6 - End stage renal disease; Z99.2 - Dependence on renal dialysis Status: Acute (6) Acute on chronic anemia: Code(s): D64.9 - Anemia, unspecified Status: Acute Plan As discussed above we can perform a EMG nerve can study of the right upper limb as an outpatient in the meanwhile I shall leave this up to you regarding the placement of IV access which is a difficult problem for her since he has been in and out of the hospital so many times an ongoing basis. I did a person to discuss this with the hospitalist and will be glad to follow it up. Consult date: 05/04/25 HPI: Celeste Waters is a 39 year old Afro-[place] female with history of juvenile diabetes mellitus and chronic kidney disease on hemodialysis was admitted to the hospital with GI bleeding and was found to hemoglobin 6.0 and potassium was 6.3. She is planned to have in GI endoscopy tomorrow. She also has been evaluated by Gastroenterology and Nephrology. Patient has been in and out of the hospital so several times in the last few months. She has moved down from [place] to this area. She has a 2 IVs in the right hand and she thinks that that is a cause for the numbness in the right hand. Denies any symptoms prior to that. No symptoms in the right lower limb or in the left upper or lower limb. No symptoms referable to head and neck has time. Review of Systems 2 Review of Systems: All systems reviewed & are unremarkable except as noted in HPI and below PMFSH Past Medical History Medical History (Updated 05/04/25 @ 13:34 by Evelina Friend MD) Numbness of right hand Epistaxis Melena Acute on chronic anemia Gastroparesis CHF (congestive heart failure) Anemia Reactive airway disease PUD (peptic ulcer disease) Peripheral neuropathy GERD (gastroesophageal reflux disease) Hypertension Cannabis use disorder Type 1 diabetes Arteriovenous fistula for hemodialysis in place, primary End stage renal disease on dialysis Surgical History Surgical History Hx laparoscopic cholecystectomy lap robina, Da Robin assisted 04/05/24 S/P arteriovenous (AV) fistula creation History of appendectomy Family History Family History Father Diabetes mellitus Mother Diabetes mellitus Sibling Diabetes mellitus Gastric bypass status for obesity Social History Social History Smoking packs per day: 0.5 Smoking cigarettes per day: 10.0 Years smoked: 24 Smoking pack-years: 12.00 Smoking status: Current every day smoker Tobacco type: cigarettes Alcohol intake: never Drinks per week: 0 Substance use: current Substance use type: marijuana Other substance usage details: not very often Last use: February Do You Feel Safe in your Home?: Yes Lack of Transportation: No Lack of Food: Never True Current Housing: I Have Housing Concerned About Future Housing: No Difficulty Paying Gas/Electric Bills: No Difficulty Paying for Meds: No Currently Unemployed: No Education: High School Diploma/GED Difficulty w/ Childcare or Family Care: No Living arrangements: with family Spiritual care concerns: No Meds Home Medications and Allergies Home Medications ?Medication ?Instructions ?Recorded ?Confirmed ?Type amlodipine 10 mg tablet 10 mg PO DAILY 03/21/24 05/03/25 History atorvastatin 10 mg tablet 10 mg PO DAILY 03/21/24 05/03/25 History carvedilol 25 mg tablet 25 mg PO BID 03/21/24 05/03/25 History gabapentin 400 mg capsule 400 mg PO TID 03/21/24 05/03/25 History losartan 100 mg tablet 100 mg PO DAILY 03/21/24 05/03/25 History pantoprazole 40 mg tablet,delayed 40 mg PO DAILY 03/21/24 05/03/25 History release calcium acetate(phosphat bind) 667 1,334 mg PO TID 03/22/24 05/03/25 History mg capsule ferrous sulfate 325 mg (65 mg 325 mg PO DAILY #10 tabs 03/22/24 05/03/25 Rx iron) tablet insulin aspart U-100 100 unit/mL 3 unit (0.03 mL) subcut TIDWM #15 03/22/24 05/03/25 Rx (3 mL) subcutaneous pen (Novolog mL FlexPen U-100 Insulin aspart) metoclopramide HCl 10 mg tablet 10 mg PO Q6H PRN nausea and 09/20/24 05/03/25 Rx (Reglan) vomiting #20 tabs trazodone 100 mg tablet See Rx Instructions .Route 12/01/24 05/03/25 Rx .COMPLEX #90 tabs albuterol sulfate 90 mcg/actuation 2 puff inhalation DAILY PRN 05/03/25 05/03/25 History aerosol inhaler shortness of breath or wheezing hydralazine 25 mg tablet 25 mg PO DAILY 05/03/25 05/03/25 History insulin degludec 100 unit/mL (3 20 unit subcut QPM 05/03/25 05/03/25 History mL) subcutaneous pen (Tresiba FlexTouch U-100 insulin) Allergies Allergy/AdvReac Type Severity Reaction Status Date / Time No Known Allergies Allergy Verified 09/20/24 08:28 Vital Signs Vital Signs - 24 hr 05/03/25 14:00 05/03/25 14:05 05/03/25 14:05 Temperature 97.7 F Pulse Rate 93 94 Respiratory Rate 18 Blood Pressure 192/89 H Pulse Oximetry 93 Oxygen Delivery Oxygen Flow Rate 2 05/03/25 14:16 05/03/25 14:30 05/03/25 14:43 Temperature Pulse Rate 90 90 94 Respiratory Rate Blood Pressure 202/100 H 205/105 H 206/109 H Pulse Oximetry Oxygen Delivery Oxygen Flow Rate 05/03/25 15:00 05/03/25 15:15 05/03/25 15:30 Temperature Pulse Rate 93 91 93 Respiratory Rate Blood Pressure 219/104 H 206/110 H 216/107 H Pulse Oximetry Oxygen Delivery Oxygen Flow Rate 05/03/25 15:47 05/03/25 16:00 05/03/25 16:00 Temperature Pulse Rate 89 90 Respiratory Rate Blood Pressure 194/97 H 210/99 H Pulse Oximetry 94 Oxygen Delivery Nasal Cannula Oxygen Flow Rate 2 05/03/25 16:00 05/03/25 16:15 05/03/25 16:30 Temperature Pulse Rate 91 89 92 Respiratory Rate Blood Pressure 193/96 H 206/100 H Pulse Oximetry Oxygen Delivery Oxygen Flow Rate 05/03/25 16:49 05/03/25 17:00 05/03/25 17:15 Temperature Pulse Rate 96 94 93 Respiratory Rate Blood Pressure 214/104 H 208/102 H 209/105 H Pulse Oximetry Oxygen Delivery Oxygen Flow Rate 05/03/25 17:30 05/03/25 17:49 05/03/25 18:00 Temperature Pulse Rate 95 96 104 H Respiratory Rate Blood Pressure 226/104 H 213/100 H Pulse Oximetry Oxygen Delivery Oxygen Flow Rate 05/03/25 18:03 05/03/25 19:05 05/03/25 19:52 Temperature 98.2 F 98.2 F Pulse Rate 93 104 H Respiratory Rate 16 20 Blood Pressure 218/104 H 149/65 H 133/62 Pulse Oximetry 94 100 Oxygen Delivery Oxygen Flow Rate 05/03/25 20:00 05/03/25 20:00 05/03/25 21:35 Temperature Pulse Rate 104 H Respiratory Rate Blood Pressure Pulse Oximetry 96 99 Oxygen Delivery Nasal Cannula Nasal Cannula Oxygen Flow Rate 2 1 05/03/25 22:00 05/03/25 23:17 05/04/25 00:00 Temperature 98.3 F 98.6 F Pulse Rate 97 101 H 96 Respiratory Rate 20 18 Blood Pressure 146/81 H 119/76 Pulse Oximetry 100 100 Oxygen Delivery Oxygen Flow Rate 05/04/25 00:00 05/04/25 00:00 05/04/25 00:17 Temperature 98.8 F Pulse Rate 104 H 100 Respiratory Rate 20 Blood Pressure 134/79 Pulse Oximetry 100 100 Oxygen Delivery Nasal Cannula Oxygen Flow Rate 2 05/04/25 01:17 05/04/25 02:00 05/04/25 02:17 Temperature 98.2 F 98.6 F Pulse Rate 98 92 96 Respiratory Rate 18 18 Blood Pressure 168/84 H 161/80 H Pulse Oximetry 100 100 Oxygen Delivery Oxygen Flow Rate 05/04/25 03:07 05/04/25 03:38 05/04/25 03:53 Temperature 99.0 F 99.5 F 98.2 F Pulse Rate 95 90 87 Respiratory Rate 18 20 16 Blood Pressure 173/88 H 159/92 H 147/85 H Pulse Oximetry 96 100 100 Oxygen Delivery Oxygen Flow Rate 05/04/25 04:00 05/04/25 04:00 05/04/25 04:53 Temperature 98.0 F Pulse Rate 89 90 Respiratory Rate 18 Blood Pressure 173/82 H Pulse Oximetry 99 100 Oxygen Delivery Nasal Cannula Oxygen Flow Rate 1 05/04/25 05:02 05/04/25 05:40 05/04/25 06:00 Temperature 98.2 F 98.6 F Pulse Rate 87 89 85 Respiratory Rate 16 20 Blood Pressure 147/85 H 162/80 H Pulse Oximetry 100 100 Oxygen Delivery Oxygen Flow Rate 05/04/25 08:00 05/04/25 08:00 05/04/25 08:00 Temperature 98.9 F Pulse Rate 87 87 87 Respiratory Rate 16 16 Blood Pressure 179/69 H Pulse Oximetry 98 98 Oxygen Delivery Room Air Oxygen Flow Rate 05/04/25 10:00 05/04/25 11:59 05/04/25 12:00 Temperature 98.2 F Pulse Rate 82 81 83 Respiratory Rate 20 Blood Pressure 156/81 H Pulse Oximetry 96 Oxygen Delivery Oxygen Flow Rate 05/04/25 12:00 Temperature Pulse Rate Respiratory Rate Blood Pressure Pulse Oximetry Oxygen Delivery Room Air Oxygen Flow Rate Exam 2 Narrative: Fully conscious alert oriented to self time place and person. Speech fluent and articulate. No aphasia or dysarthria. Examination head and neck shows no evidence of external trauma. Cranial nerves show pupils are equal react to light. Visual dubose by confrontation are normal. There is no facial asymmetry. Facial sensation intact. Tongue was midline. Other cranial normal limits. Motor system shows normal power and tone in both upper and lower limbs. No sensory loss noted in the forearm or hand on the right compared to the left side. There is some distal sensory loss in the lower limbs and stocking pattern. No involuntary movements are seen. Remainder of the neurologic findings are within acceptable normal limits. The 2 IVs were noted in to be right arm once in 1 in the elbow and another 1 in the mid forearm. Results Labs 05/04/25 06:58 05/04/25 06:58 Labs: Short CBC 05/03/25 05/04/25 Range/Units 20:23 06:58 WBC 6.6 (4.5-10.0) K/mm3 Hgb 6.2 L* 7.7 L (12.0-15.0) g/dL Hct 18.8 L* 23.6 L (37.0-47.0) % Plt Count 165 (150-375) k/mm3 BMP 05/04/25 05/04/25 00:10 06:58 Sodium 138 Potassium 4.2 4.7 Chloride 101 Carbon Dioxide 23 BUN 54 H D Creatinine 7.66 H Glucose 185 H Calcium 8.1 L
--- NOTE | 2025-05-04 13:50 | WPDANESEPPF ---
Anes - Initial Pre Proc Eval Procedure: Operation Date: 05/04/25 14:30 Proposed Procedures p Esophagogastroduodenoscopy - Uziel Lundy MD Date/Time: 05/04/25 13:50 Surgeon: Peng Pre Op Diagnosis: hyperkalemia,gi bleeding,anemia Patient Data Age: 39 Gender: F Height: 1.68 m Weight: 85.1 kg Last Vital Signs Temp 36.8 C 05/04/25 11:59 Pulse 83 05/04/25 12:00 Resp 20 05/04/25 11:59 BP 156/81 H 05/04/25 11:59 Pulse Ox 96 05/04/25 11:59 O2 Del Method Room Air 05/04/25 12:00 O2 Flow Rate 1 05/04/25 04:00 Allergies Allergy/AdvReac Type Severity Reaction Status Date / Time No Known Allergies Allergy Verified 05/04/25 14:06 Home Medications ?Medication ?Instructions ?Recorded ?Confirmed ?Type amlodipine 10 mg tablet 10 mg PO DAILY 03/21/24 05/03/25 History atorvastatin 10 mg tablet 10 mg PO DAILY 03/21/24 05/03/25 History carvedilol 25 mg tablet 25 mg PO BID 03/21/24 05/03/25 History gabapentin 400 mg capsule 400 mg PO TID 03/21/24 05/03/25 History losartan 100 mg tablet 100 mg PO DAILY 03/21/24 05/03/25 History pantoprazole 40 mg tablet,delayed 40 mg PO DAILY 03/21/24 05/03/25 History release calcium acetate(phosphat bind) 667 1,334 mg PO TID 03/22/24 05/03/25 History mg capsule ferrous sulfate 325 mg (65 mg 325 mg PO DAILY #10 tabs 03/22/24 05/03/25 Rx iron) tablet insulin aspart U-100 100 unit/mL 3 unit (0.03 mL) subcut TIDWM #15 03/22/24 05/03/25 Rx (3 mL) subcutaneous pen (Novolog mL FlexPen U-100 Insulin aspart) metoclopramide HCl 10 mg tablet 10 mg PO Q6H PRN nausea and 09/20/24 05/03/25 Rx (Reglan) vomiting #20 tabs trazodone 100 mg tablet See Rx Instructions .Route 12/01/24 05/03/25 Rx .COMPLEX #90 tabs albuterol sulfate 90 mcg/actuation 2 puff inhalation DAILY PRN 05/03/25 05/03/25 History aerosol inhaler shortness of breath or wheezing hydralazine 25 mg tablet 25 mg PO DAILY 05/03/25 05/03/25 History insulin degludec 100 unit/mL (3 20 unit subcut QPM 05/03/25 05/03/25 History mL) subcutaneous pen (Tresiba FlexTouch U-100 insulin) Laboratory Tests 05/03/25 05/03/25 05/03/25 11:13 11:54 11:54 WBC RBC Hgb Hct MCV MCH MCHC RDW Plt Count MPV Immature Gran % (Auto) Neut % (Auto) Lymph % (Auto) [place] % (Auto) Eos % (Auto) Baso % (Auto) Lymph # (Auto) [place] # (Auto) Eos # (Auto) Baso # (Auto) Abs Immat Gran (auto) Absolute Neuts (auto) Absolute Nucleated RBC Nucleated RBC % Sodium Potassium Chloride Carbon Dioxide Anion Gap BUN Creatinine Estim Creat Clear Calc Estimated GFR Glucose POC Capillary Glucose Calcium Serum HCG, Qual Nasal MRSA (PCR) Hep Bs Antibody Positive Blood Type O Positive Antibody Screen Positive Antibody Identification Anti-E Antigen Identification C Antigen - NEGATIVE E Antigen - NEGATIVE EDINSON, IgG Interpret Positive EDINSON, Poly Interpret Positive EDINSON, Complement Interp Negative Enhanced Crossmatch See Detail 05/03/25 05/03/25 05/03/25 18:53 19:05 20:23 WBC RBC Hgb 6.2 L* g/dL (12.0-15.0) Hct 18.8 L* % (37.0-47.0) MCV MCH MCHC RDW Plt Count MPV Immature Gran % (Auto) Neut % (Auto) Lymph % (Auto) [place] % (Auto) Eos % (Auto) Baso % (Auto) Lymph # (Auto) [place] # (Auto) Eos # (Auto) Baso # (Auto) Abs Immat Gran (auto) Absolute Neuts (auto) Absolute Nucleated RBC Nucleated RBC % Sodium Potassium Chloride Carbon Dioxide Anion Gap BUN Creatinine Estim Creat Clear Calc Estimated GFR Glucose POC Capillary Glucose 84 mg/dl (65-105) Calcium Serum HCG, Qual Nasal MRSA (PCR) Not detected (NOT DETECTE) Hep Bs Antibody Blood Type Antibody Screen Antibody Identification Antigen Identification EDINSON, IgG Interpret EDINSON, Poly Interpret EDINSON, Complement Interp Enhanced Crossmatch 05/03/25 05/04/25 05/04/25 23:36 00:10 06:53 WBC RBC Hgb Hct MCV MCH MCHC RDW Plt Count MPV Immature Gran % (Auto) Neut % (Auto) Lymph % (Auto) [place] % (Auto) Eos % (Auto) Baso % (Auto) Lymph # (Auto) [place] # (Auto) Eos # (Auto) Baso # (Auto) Abs Immat Gran (auto) Absolute Neuts (auto) Absolute Nucleated RBC Nucleated RBC % Sodium Potassium 4.2 mmol/L (3.4-5.0) Chloride Carbon Dioxide Anion Gap BUN Creatinine Estim Creat Clear Calc Estimated GFR Glucose POC Capillary Glucose 122 H mg/dl (65-105) Calcium Serum HCG, Qual Negative Nasal MRSA (PCR) Hep Antibody Blood Type Antibody Screen Antibody Identification Antigen Identification EDINSON, IgG Interpret EDINSON, Poly Interpret EDINSON, Complement Interp Enhanced Crossmatch 05/04/25 05/04/25 06:58 11:55 WBC 6.6 K/mm3 (4.5-10.0) RBC 2.64 L M/mm3 (4.2-5.4) Hgb 7.7 L g/dL (12.0-15.0) Hct 23.6 L % (37.0-47.0) MCV 89.4 fl (80-100) MCH 29.2 pg (26-34) MCHC 32.6 g/dl (32-36) RDW 15.6 H % (11.5-14.5) Plt Count 165 k/mm3 (150-375) MPV 9.9 fl (7.4-10.4) Immature Gran % (Auto) 0.5 % (0-0.5) Neut % (Auto) 77.7 H % (45.5-73.1) Lymph % (Auto) 12.2 L % (18.3-44.2) [place] % (Auto) 4.1 % (2.6-8.5) Eos % (Auto) 4.7 H % (0-4.4) Baso % (Auto) 0.8 % (0.2-1.2) Lymph # (Auto) 0.81 L K/mm3 (0.9-3.2) [place] # (Auto) 0.3 K/mm3 (0.1-0.6) Eos # (Auto) 0.3 K/mm3 (0-0.3) Baso # (Auto) 0.1 K/mm3 (0.0-0.1) Abs Immat Gran (auto) 0.03 K/mm3 (0.00-0.031) Absolute Neuts (auto) 5.2 K/mm3 (1.3-6.7) Absolute Nucleated RBC 0.000 K/mm3 (0.0-0.012) Nucleated RBC % 0.0 % (0.0-0.2) Sodium 138 mmol/L (137-145) Potassium 4.7 mmol/L (3.4-5.0) Chloride 101 mmol/L (98-107) Carbon Dioxide 23 mmol/L (22-30) Anion Gap 14 H mmol/L (4-12) BUN 54 H D mg/dL (7-17) Creatinine 7.66 H mg/dL (0.7-1.0) Estim Creat Clear Calc 10 ml/min Estimated GFR 6 L (59 - ) Glucose 185 H mg/dL (65-110) POC Capillary Glucose 204 H mg/dl (65-105) Calcium 8.1 L mg/dL (8.4-10.2) Serum HCG, Qual Nasal MRSA (PCR) Hep Bs Antibody Blood Type Antibody Screen Antibody Identification Antigen Identification EDINSON, IgG Interpret EDINSON, Poly Interpret EDINSON, Complement Interp Enhanced Crossmatch Patient hx anesthesia problems: none Family hx anesthesia problems: none Results Review: All pre-operative results and documents have been reviewed as part of the pre-operative evaluation. [facility] Past Medical History Medical History (Updated 05/04/25 @ 13:34 by Evelina Friend MD) Numbness of right hand Epistaxis Melena Acute on chronic anemia Gastroparesis CHF (congestive heart failure) Anemia Reactive airway disease PUD (peptic ulcer disease) Peripheral neuropathy GERD (gastroesophageal reflux disease) Hypertension Cannabis use disorder Type 1 diabetes Arteriovenous fistula for hemodialysis in place, primary End stage renal disease on dialysis Surgical History Surgical History Hx laparoscopic cholecystectomy lap robina, Da Robin assisted 04/05/24 S/P arteriovenous (AV) fistula creation History of appendectomy Family History Family History Father Diabetes mellitus Mother Diabetes mellitus Sibling Diabetes mellitus Gastric bypass status for obesity Social History Social History Smoking packs per day: 0.5 Smoking cigarettes per day: 10.0 Years smoked: 24 Smoking pack-years: 12.00 Smoking status: Current every day smoker Tobacco type: cigarettes Alcohol intake: never Drinks per week: 0 Substance use: current Substance use type: marijuana Other substance usage details: not very often Last use: February Do You Feel Safe in your Home?: Yes Lack of Transportation: No Lack of Food: Never True Current Housing: I Have Housing Concerned About Future Housing: No Difficulty Paying Gas/Electric Bills: No Difficulty Paying for Meds: No Currently Unemployed: No Education: High School Diploma/GED Difficulty w/ Childcare or Family Care: No Living arrangements: with family Spiritual care concerns: No Anes - Eval Final PreProcedure Day of Procedure 05/04/25 13:50 Patient weight: obese Heart: regular rate and rhythm Lungs: clear to auscultation Airway: Mallampati scale class III Neurological: alert and oriented Last oral intake: >/= 8 hours ASA classification: IV Emergent: yes Anesthetic plan: proceed Anesthesia type and monitoring: general GIVS and standard monitoring Results Review: All pre-operative results and documents have been reviewed as part of the pre-operative evaluation. Informed Consent: The patient's anesthetic plan and its attendant risks and benefits were discussed with the patient/family/POA. Questions were solicited and answers provided to the satisfaction of the patient/family/POA.
[2025-05-04 14:16] LABS: Glucose Point of Care 202 mg/dl (65-105)
--- NOTE | 2025-05-04 15:00 | P.PNIM_ITS ---
Progress Note: A&P Assessment and Plan (1) Acute upper GI bleed: Code(s): K92.2 - Gastrointestinal hemorrhage, unspecified Status: Acute Assessment and Plan: Protonix IV Transfuse 2 units RBC Q.6 are H&H Transfuse for hemoglobin less than 7 or symptomatic Blood transfusion delayed due to patient having antibodies GI consulted, awaiting EGD (2) End stage renal disease on dialysis: Code(s): N18.6 - End stage renal disease; Z99.2 - Dependence on renal dialysis Status: Acute Assessment and Plan: Nephrology consulted for dialysis today (3) Hypertension: Code(s): I10 - Essential (primary) hypertension Status: Chronic Assessment and Plan: Uncontrolled hypertension dialysis will follow trends after dialysis Hydralazine p.r.n. Patient complained of headache blurriness and numbness after hydralazine. Her pressure dropped about [address] done with no acute findings MRI normal exam Continue Amlodipine, Losartan and Coreg (4) Hyperkalemia: Code(s): E87.5 - Hyperkalemia Status: Acute Assessment and Plan: Insulin and bicarb given emergency room continue dialysis Nephrology on board (5) Anemia: Code(s): D64.9 - Anemia, unspecified Status: Chronic Assessment and Plan: Acute on chronic due to end-stage renal disease See plan above (6) Type 1 diabetes: Code(s): E10.9 - Type 1 diabetes mellitus without complications Status: Chronic Assessment and Plan: Patient is NPO D5 NS Accu-Cheks q.6 Home Lantus ordered for tomorrow night Plan DVT prophylaxis on SCDs, no AC due to GI bleed Subjective Date/time seen: 05/04/25 15:00 Interval history: Comfortable at bedside and awaiting EGD by GI Review of Systems Review of Systems: 12 systems were reviewed and are negativ e except for as per HPI. Exam Narrative: General: well appearing, appears stated age. HEENT: normocephalic, atraumatic. Mucous membranes moist. EOMI, PERRLA, bilateral sclera anicteric, no conjunctival injection. Neck supple without JVD, lymphadenopathy, or bruit. Respiratory: clear to ascultation bilaterally. No rales/rhonic/wheezes. Cardiovascular: Regular rate and rhythm, normal S1-S2 upon ascultation. No murmurs, rubs, or clicks. PMI is nondisplaced, capillary refill less than 3 second. Abdomen: Soft, round, no pulsatile masses, nondistended and nontender. No rebound, no guarding. No CVA tenderness, no hepatosplenomegaly. Bowel sounds present to all four quadrants. No high pitch or tinkling sounds, resonant to percussion. Extremities: No cyanosis, clubbing, or edema present. Pulses are palpable 2/2. Active ROM to all four extremities. Neuro: Alert and orientated x 4. PERRLA. Cranial nerves 2-12 intact without focal deficit. Skin: Warm, dry, and intact, without rash, erythema, or lesion. Psych: pleasant, cooperative, normal speech, normal affect, no hallucinations, no dysarthia Fistula on left arm Objective Data Vital Signs Vital Signs: Vital Signs - 24 hr 05/03/25 15:15 05/03/25 15:30 05/03/25 15:47 Temperature Pulse Rate 91 93 89 Respiratory Rate Blood Pressure 206/110 H 216/107 H 194/97 H Pulse Oximetry Oxygen Delivery Oxygen Flow Rate 05/03/25 16:00 05/03/25 16:00 05/03/25 16:00 Temperature Pulse Rate 90 91 Respiratory Rate Blood Pressure 210/99 H Pulse Oximetry 94 Oxygen Delivery Nasal Cannula Oxygen Flow Rate 2 05/03/25 16:15 05/03/25 16:30 05/03/25 16:49 Temperature Pulse Rate 89 92 96 Respiratory Rate Blood Pressure 193/96 H 206/100 H 214/104 H Pulse Oximetry Oxygen Delivery Oxygen Flow Rate 05/03/25 17:00 05/03/25 17:15 05/03/25 17:30 Temperature Pulse Rate 94 93 95 Respiratory Rate Blood Pressure 208/102 H 209/105 H 226/104 H Pulse Oximetry Oxygen Delivery Oxygen Flow Rate 05/03/25 17:49 05/03/25 18:00 05/03/25 18:03 Temperature 98.2 F Pulse Rate 96 104 H 93 Respiratory Rate 16 Blood Pressure 213/100 H 218/104 H Pulse Oximetry 94 Oxygen Delivery Oxygen Flow Rate 05/03/25 19:05 05/03/25 19:52 05/03/25 20:00 Temperature 98.2 F Pulse Rate 104 H Respiratory Rate 20 Blood Pressure 149/65 H 133/62 Pulse Oximetry 100 96 Oxygen Delivery Nasal Cannula Oxygen Flow Rate 2 05/03/25 20:00 05/03/25 21:35 05/03/25 22:00 Temperature Pulse Rate 104 H 97 Respiratory Rate Blood Pressure Pulse Oximetry 99 Oxygen Delivery Nasal Cannula Oxygen Flow Rate 1 05/03/25 23:17 05/04/25 00:00 05/04/25 00:00 Temperature 98.3 F 98.6 F Pulse Rate 101 H 96 Respiratory Rate 20 18 Blood Pressure 146/81 H 119/76 Pulse Oximetry 100 100 100 Oxygen Delivery Nasal Cannula Oxygen Flow Rate 2 05/04/25 00:00 05/04/25 00:17 05/04/25 01:17 Temperature 98.8 F 98.2 F Pulse Rate 104 H 100 98 Respiratory Rate 20 18 Blood Pressure 134/79 168/84 H Pulse Oximetry 100 100 Oxygen Delivery Oxygen Flow Rate 05/04/25 02:00 05/04/25 02:17 05/04/25 03:07 Temperature 98.6 F 99.0 F Pulse Rate 92 96 95 Respiratory Rate 18 18 Blood Pressure 161/80 H 173/88 H Pulse Oximetry 100 96 Oxygen Delivery Oxygen Flow Rate 05/04/25 03:38 05/04/25 03:53 05/04/25 04:00 Temperature 99.5 F 98.2 F Pulse Rate 90 87 Respiratory Rate 20 16 Blood Pressure 159/92 H 147/85 H Pulse Oximetry 100 100 99 Oxygen Delivery Nasal Cannula Oxygen Flow Rate 1 05/04/25 04:00 05/04/25 04:53 05/04/25 05:02 Temperature 98.0 F 98.2 F Pulse Rate 89 90 87 Respiratory Rate 18 16 Blood Pressure 173/82 H 147/85 H Pulse Oximetry 100 100 Oxygen Delivery Oxygen Flow Rate 05/04/25 05:40 05/04/25 06:00 05/04/25 08:00 Temperature 98.6 F 98.9 F Pulse Rate 89 85 87 Respiratory Rate 20 16 Blood Pressure 162/80 H 179/69 H Pulse Oximetry 100 98 Oxygen Delivery Oxygen Flow Rate 05/04/25 08:00 05/04/25 08:00 05/04/25 10:00 Temperature Pulse Rate 87 87 82 Respiratory Rate 16 Blood Pressure Pulse Oximetry 98 Oxygen Delivery Room Air Oxygen Flow Rate 05/04/25 11:59 05/04/25 12:00 05/04/25 12:00 Temperature 98.2 F Pulse Rate 81 83 Respiratory Rate 20 Blood Pressure 156/81 H Pulse Oximetry 96 Oxygen Delivery Room Air Oxygen Flow Rate 05/04/25 14:08 Temperature 97.1 F L Pulse Rate 83 Respiratory Rate 20 Blood Pressure 156/81 H Pulse Oximetry 97 Oxygen Delivery Room Air Oxygen Flow Rate Intake/Output Intake/Output: Intake & Output 05/01/25 05/02/25 05/03/25 05/04/25 23:59 23:59 23:59 23:59 Intake Total 650 Output Total 4000 Balance -4000 650 Meds/Results Medications: Active Medications Generic Name Dose Route Start Last Admin Trade Name Freq PRN Reason Stop Dose Admin Acetaminophen 650 mg 05/03/25 13:18 05/04/25 05:05 Acetaminophen 325 Mg Tablet PO 650 mg Q4H PRN Administration Mild Pain (1-3) or Fever Albuterol 2 puff 05/03/25 17:40 Albuterol Sulfate (*Sp) Aerosol 1 Puff INHALATION DAILY PRN shortness of breath or wheezing Amlodipine Besylate 10 mg 05/04/25 09:00 05/04/25 09:06 Amlodipine Besylate 10 Mg Tablet PO 10 mg DAILY KAREEN Administration Atorvastatin Calcium 10 mg 05/04/25 09:00 Atorvastatin 10 Mg Tablet PO DAILY KAREEN Calcium Acetate 1,334 mg 05/04/25 09:00 05/04/25 13:02 Calcium Acetate 667 Mg Tablet PO Not Given TID KAREEN Carvedilol 25 mg 05/04/25 09:00 05/04/25 09:06 Carvedilol 25 Mg Tablet PO 25 mg BID KAREEN Administration Dextrose 12.5 gm 05/03/25 20:22 Dextrose 50% 25 Gm/50 Ml Syringe IV PUSH PRN PRN Hypoglycemia Protocol Gabapentin 400 mg 05/04/25 09:00 05/04/25 13:02 Gabapentin 400 Mg Capsule PO Not Given TID KAREEN Glucagon 1 mg 05/03/25 20:22 Glucagon For Inj 1 Mg Vial IM PRN PRN Hypoglycemia Protocol Glucose 15 gm 05/03/25 20:22 Glucose Oral Gel 15 Gm Of Glucse In 37.5 Gm Tube PO PRN PRN Hypoglycemia Protocol Hydralazine HCl 25 mg 05/04/25 09:00 05/04/25 09:06 Hydralazine Hcl 25 Mg Tablet PO 25 mg DAILY KAREEN Administration Hydralazine HCl 10 mg 05/03/25 17:56 05/03/25 18:26 Hydralazine Hcl 20 Mg/Ml Vial IV PUSH 10 mg Q8H PRN Administration Blood Pressure - High Albumin Human 50 mls @ 999 mls/hr 05/03/25 12:27 Albutein IVPB 06/02/25 12:26 Q10M PRN HYPOTENSION Dextrose/Sodium Chloride 1,000 mls @ 60 mls/hr 05/03/25 19:40 05/03/25 20:20 Dextrose 5% Sodium Chloride 0.9% IV CONT 60 mls/hr .[id number] KAREEN Administration Dextrose 1,000 mls @ 100 mls/hr 05/03/25 20:22 Dextrose 5% 1,000 Ml IVPB PRN PRN Hypoglycemia Protocol Sodium Chloride 500 mls @ 10 mls/hr 05/04/25 14:10 Normal Saline Iv IV CONT .Q24H [facility] Insulin Glargine 20 units 05/04/25 18:00 Insulin Glargine (*Bkc) 100 Units/Ml SUB-Q QPM [facility] Losartan Potassium 100 mg 05/04/25 09:00 05/04/25 09:06 Losartan Potassium 100 Mg Tablet PO 100 mg DAILY KAREEN Administration Pantoprazole Sodium 40 mg 05/03/25 17:00 05/04/25 09:06 Pantoprazole Sodium Iv 40 Mg Vial IV PUSH 40 mg BID KAREEN Administration Trazodone HCl 100 mg 05/03/25 21:00 Trazodone Hcl 50 Mg Tablet BY MOUTH HS PRN Sleep Radiology Results: ITS Impressions Chest X-Ray 05/03/25 12:07 IMPRESSION: 1. Increasing groundglass opacities in the bilateral lungs which could represent pulmonary edema, pneumonia or atelectasis. Abdomen X-Ray 05/03/25 13:04 IMPRESSION: 1. Nasogastric tube in stomach. 2. Diffuse bilateral interstitial and airspace opacities in the mid to lower lungs and favor mild pulmonary edema over pneumonia. Head CT 05/03/25 20:17 Impression: No acute intracranial hemorrhage or suspicious mass effect. Brain MRI 05/04/25 09:27 IMPRESSION: 1. Normal for age brain MR. No acute intracranial process. Labs Labs: Laboratory Results - last 24 hr 05/03/25 05/03/25 05/03/25 11:54 11:54 18:53 WBC RBC Hgb Hct MCV MCH MCHC RDW Plt Count MPV Immature Gran % (Auto) Neut % (Auto) Lymph % (Auto) Placer % (Auto) Eos % (Auto) Baso % (Auto) Lymph # (Auto) Placer # (Auto) Eos # (Auto) Baso # (Auto) Abs Immat Gran (auto) Absolute Neuts (auto) Absolute Nucleated RBC Nucleated RBC % Sodium Potassium Chloride Carbon Dioxide Anion Gap BUN Creatinine Estim Creat Clear Calc Estimated GFR Glucose POC Capillary Glucose Calcium Serum HCG, Qual Nasal MRSA (PCR) Not detected Blood Type O Positive Antibody Screen Positive Antibody Identification Anti-E Antigen Identification C Antigen - NEGATIVE E Antigen - NEGATIVE EDINSON, IgG Interpret Positive EDINSON, Poly Interpret Positive EDINSON, Complement Interp Negative Enhanced Crossmatch See Detail 05/03/25 05/03/25 05/03/25 19:05 20:23 23:36 WBC RBC Hgb 6.2 L* Hct 18.8 L* MCV MCH MCHC RDW Plt Count MPV Immature Gran % (Auto) Neut % (Auto) Lymph % (Auto) Placer % (Auto) Eos % (Auto) Baso % (Auto) Lymph # (Auto) Placer # (Auto) Eos # (Auto) Baso # (Auto) Abs Immat Gran (auto) Absolute Neuts (auto) Absolute Nucleated RBC Nucleated RBC % Sodium Potassium Chloride Carbon Dioxide Anion Gap BUN Creatinine Estim Creat Clear Calc Estimated GFR Glucose POC Capillary Glucose 84 122 H Calcium Serum HCG, Qual Nasal MRSA (PCR) Blood Type Antibody Screen Antibody Identification Antigen Identification EDINSON, IgG Interpret EDINSON, Poly Interpret EDINSON, Complement Interp Enhanced Crossmatch 05/04/25 05/04/25 05/04/25 00:10 06:53 06:58 WBC 6.6 RBC 2.64 L Hgb 7.7 L Hct 23.6 L MCV 89.4 MCH 29.2 MCHC 32.6 RDW 15.6 H Plt Count 165 MPV 9.9 Immature Gran % (Auto) 0.5 Neut % (Auto) 77.7 H Lymph % (Auto) 12.2 L Placer % (Auto) 4.1 Eos % (Auto) 4.7 H Baso % (Auto) 0.8 Lymph # (Auto) 0.81 L Placer # (Auto) 0.3 Eos # (Auto) 0.3 Baso # (Auto) 0.1 Abs Immat Gran (auto) 0.03 Absolute Neuts (auto) 5.2 Absolute Nucleated RBC 0.000 Nucleated RBC % 0.0 Sodium 138 Potassium 4.2 4.7 Chloride 101 Carbon Dioxide 23 Anion Gap 14 H BUN 54 H D Creatinine 7.66 H Estim Creat Clear Calc 10 Estimated GFR 6 L Glucose 185 H POC Capillary Glucose Calcium 8.1 L Serum HCG, Qual Negative Nasal MRSA (PCR) Blood Type Antibody Screen Antibody Identification Antigen Identification EDINSON, IgG Interpret EDINSON, Poly Interpret EDINSON, Complement Interp Enhanced Crossmatch 05/04/25 05/04/25 11:55 14:14 WBC RBC Hgb Hct MCV MCH MCHC RDW Plt Count MPV Immature Gran % (Auto) Neut % (Auto) Lymph % (Auto) Placer % (Auto) Eos % (Auto) Baso % (Auto) Lymph # (Auto) Placer # (Auto) Eos # (Auto) Baso # (Auto) Abs Immat Gran (auto) Absolute Neuts (auto) Absolute Nucleated RBC Nucleated RBC % Sodium Potassium Chloride Carbon Dioxide Anion Gap BUN Creatinine Estim Creat Clear Calc Estimated GFR Glucose POC Capillary Glucose 204 H 202 H Calcium Serum HCG, Qual Nasal MRSA (PCR) Blood Type Antibody Screen Antibody Identification Antigen Identification EDINSON, IgG Interpret EDINSON, Poly Interpret EDINSON, Complement Interp Enhanced Crossmatch Quality VTE Prophylaxis VTE prophylaxis: mechanical ordered
[2025-05-04] MEDS: SODIUM CHLORIDE 0.9% IV 500 ML 10 ML IV CONT (15:15)
[2025-05-04] MEDS: BENZOCAINE (*SP) 60 ML SPRAY CAN (HURRICAINE) 1 SPRAY MUCOUS MEM (15:16)
[2025-05-04 15:40] LABS: Glucose Point of Care 174 mg/dl (65-105)
[2025-05-04 16:08] LABS: Glucose Point of Care 191 mg/dl (65-105)
--- NOTE | 2025-05-04 16:31 | P.PNNP_ITS ---
Progress Note: A&P Assessment and Plan (1) End stage renal disease: Code(s): N18.6 - End stage renal disease Status: Chronic Assessment and Plan: * HD tomorrow * continue outpatient schedule of Thu/Thu/Thursday * follow electrolytes, volume status, and clearance (2) Acute upper GI bleed: Code(s): K92.2 - Gastrointestinal hemorrhage, unspecified Status: Acute Assessment and Plan: * as noted by history * GI following * PRBC transfusion per protocol * follow trend of H/H (3) Hyperkalemia: Code(s): E87.5 - Hyperkalemia Status: Acute Assessment and Plan: * due to noncompliance with dialysis * s/p medical mangement * HD today (4) Hypertension: Code(s): I10 - Essential (primary) hypertension Status: Chronic Assessment and Plan: * quite erratic at baseline * pain issues maybe playing a role as well * will restart carvedilol and losartan (home medications) * may require PRN medications as well (5) Anemia: Code(s): D64.9 - Anemia, unspecified Status: Chronic Assessment and Plan: * due to ESRD and complicated by #2 * Epogen with HD * follow trend of H/H (6) Type 1 diabetes: Code(s): E10.9 - Type 1 diabetes mellitus without complications Status: Chronic Assessment and Plan: * follow accu-cheks * glycemic control per hospitalist Will continue to follow. L Subjective Date/time seen: 05/04/25 12:31 Interval history: Follow-up for end stage renal disease on hemodialysis. Tolerated dialysis treatment yesterday with stabilization of fluid status and hyperkalemia; much more awake and alert in comparison to when I saw her yesterday during her dialysis treatment; tolerated PRBC transfusion early this AM (there was difficulty finding an appropriate match); awaiting EGD later this afternoon; no apparent distress noted at the time of my visit. Exam 2 Narrative: General: WD/WN female in NAD Heart: normal S1 and S2; no rub Lungs: clear to auscultation Abdomen: soft, nontender nondistended, positive bowel sounds Extremities: no cyanosis or clubbing; no edema Skin: warm and dry Objective Data Vital Signs Vital Signs: Vital Signs Temp Pulse Resp BP Pulse Ox O2 Del Method O2 Flow Rate 05/04/25 12:00 83 Room Air 05/04/25 11:59 98.2 F 81 20 156/81 H 96 05/04/25 10:00 82 05/04/25 08:00 87 05/04/25 08:00 87 16 98 Room Air 05/04/25 08:00 98.9 F 87 16 179/69 H 98 05/04/25 06:00 85 05/04/25 05:40 98.6 F 89 20 162/80 H 100 05/04/25 05:02 98.2 F 87 16 147/85 H 100 05/04/25 04:53 98.0 F 90 18 173/82 H 100 05/04/25 04:00 89 05/04/25 04:00 99 Nasal Cannula 1 05/04/25 03:53 98.2 F 87 16 147/85 H 100 05/04/25 03:38 99.5 F 90 20 159/92 H 100 05/04/25 03:07 99.0 F 95 18 173/88 H 96 05/04/25 02:17 98.6 F 96 18 161/80 H 100 05/04/25 02:00 92 05/04/25 01:17 98.2 F 98 18 168/84 H 100 05/04/25 00:17 98.8 F 100 20 134/79 100 05/04/25 00:00 104 H 05/04/25 00:00 100 Nasal Cannula 2 05/04/25 00:00 98.6 F 96 18 119/76 100 05/03/25 23:17 98.3 F 101 H 20 146/81 H 100 05/03/25 22:00 97 05/03/25 21:35 99 Nasal Cannula 1 05/03/25 20:00 104 H 05/03/25 20:00 96 Nasal Cannula 2 05/03/25 19:52 98.2 F 104 H 20 133/62 100 05/03/25 19:05 149/65 H Intake/Output Intake/Output: Intake & Output 05/01/25 05/02/25 05/03/25 05/04/25 23:59 23:59 23:59 23:59 Intake Total 1130 Output Total 4000 0 Balance -4000 1130 Meds/Results Medications: Active Medications Generic Name Dose Route Start Last Admin Trade Name Freq PRN Reason Stop Dose Admin Acetaminophen 650 mg 05/03/25 13:18 05/04/25 05:05 Acetaminophen 325 Mg Tablet PO 650 mg Q4H PRN Administration Mild Pain (1-3) or Fever Albuterol 2 puff 05/03/25 17:40 Albuterol Sulfate (*Sp) Aerosol 1 Puff INHALATION DAILY PRN shortness of breath or wheezing Amlodipine Besylate 10 mg 05/04/25 09:00 05/04/25 09:06 Amlodipine Besylate 10 Mg Tablet PO 10 mg DAILY KAREEN Administration Atorvastatin Calcium 10 mg 05/04/25 09:00 05/04/25 17:06 Atorvastatin 10 Mg Tablet PO 10 mg DAILY KAREEN Administration Calcium Acetate 1,334 mg 05/04/25 09:00 05/04/25 17:06 Calcium Acetate 667 Mg Tablet PO 1,334 mg TID KAREEN Administration Carvedilol 25 mg 05/04/25 09:00 05/04/25 17:06 Carvedilol 25 Mg Tablet PO 25 mg BID KAREEN Administration Dextrose 12.5 gm 05/03/25 20:22 Dextrose 50% 25 Gm/50 Ml Syringe IV PUSH PRN PRN Hypoglycemia Protocol Gabapentin 400 mg 05/04/25 09:00 05/04/25 17:06 Gabapentin 400 Mg Capsule PO 400 mg TID KAREEN Administration Glucagon 1 mg 05/03/25 20:22 Glucagon For Inj 1 Mg Vial IM PRN PRN Hypoglycemia Protocol Glucose 15 gm 05/03/25 20:22 Glucose Oral Gel 15 Gm Of Glucse In 37.5 Gm Tube PO PRN PRN Hypoglycemia Protocol Hydralazine HCl 25 mg 05/04/25 09:00 05/04/25 09:06 Hydralazine Hcl 25 Mg Tablet PO 25 mg DAILY KAREEN Administration Hydralazine HCl 10 mg 05/03/25 17:56 05/03/25 18:26 Hydralazine Hcl 20 Mg/Ml Vial IV PUSH 10 mg Q8H PRN Administration Blood Pressure - High Albumin Human 50 mls @ 999 mls/hr 05/03/25 12:27 Albutein IVPB 06/02/25 12:26 Q10M PRN HYPOTENSION Dextrose 1,000 mls @ 100 mls/hr 05/03/25 20:22 Dextrose 5% 1,000 Ml IVPB PRN PRN Hypoglycemia Protocol Insulin Aspart 2 - 5 units 05/04/25 17:00 05/04/25 16:44 Insulin Aspart (*Bkc) 100 Units/Ml SUB-Q Not Given [facility] Protocol Insulin Glargine 20 units 05/04/25 18:00 05/04/25 17:06 Insulin Glargine (*Bkc) 100 Units/Ml SUB-Q 20 units QPM KAREEN Administration Losartan Potassium 100 mg 05/04/25 09:00 05/04/25 09:06 Losartan Potassium 100 Mg Tablet PO 100 mg DAILY KAREEN Administration Pantoprazole Sodium 40 mg 05/04/25 21:00 Pantoprazole 40 Mg Tablet PO Q12HR KAREEN Trazodone HCl 100 mg 05/03/25 21:00 Trazodone Hcl 50 Mg Tablet BY MOUTH HS PRN Sleep Radiology Results: ITS Impressions Chest X-Ray 05/03/25 12:07 IMPRESSION: 1. Increasing groundglass opacities in the bilateral lungs which could represent pulmonary edema, pneumonia or atelectasis. Abdomen X-Ray 05/03/25 13:04 IMPRESSION: 1. Nasogastric tube in stomach. 2. Diffuse bilateral interstitial and airspace opacities in the mid to lower lungs and favor mild pulmonary edema over pneumonia. Head CT 05/03/25 20:17 Impression: No acute intracranial hemorrhage or suspicious mass effect. Brain MRI 05/04/25 09:27 IMPRESSION: 1. Normal for age brain MR. No acute intracranial process. Labs Labs: Laboratory Tests 05/04/25 06:58 05/04/25 06:58 Microbiology 05/03/25 20:24 Blood Blood Culture - Preliminary 05/03/25 20:24 Blood Blood Culture - Preliminary
[2025-05-04] MEDS: GABAPENTIN 400 MG CAPSULE PO (17:06)
[2025-05-04] MEDS: CALCIUM ACETATE 667 MG TABLET 1334 MG PO (17:06)
[2025-05-04] MEDS: INSULIN GLARGINE (*BKC) 100 UNITS/ML 20 UNITS SUB-Q (17:06)
[2025-05-04] MEDS: ATORVASTATIN 10 MG TABLET PO (17:06)
[2025-05-04 20:02] LABS: Glucose Point of Care 288 mg/dl (65-105)
[2025-05-04] MEDS: PANTOPRAZOLE 40 MG TABLET PO (20:04)
[2025-05-04] MEDS: INSULIN ASPART (*BKC) 100 UNITS/ML SUB-Q (21:20)
[2025-05-04 21:25] LABS: Glucose Point of Care 291 mg/dl (65-105)
--- NOTE | 2025-05-04 21:25 | PC.NURSE ---
Report given to QUOC Khan.
[2025-05-05] VITALS (26 sets, daily range): BP systolic 140–197; BP diastolic 69–100; PULSE 69–87; RESP 12–20; TEMP 36.4–37; O2SAT 94–100
[2025-05-05 04:33] LABS: Basophils Absolute Auto 0.1 K/mm3 (0.0-0.1); Basophils Percent Auto 1.1 % (0.2-1.2); Eosinophils Absolute Auto 0.4 K/mm3 (0-0.3); Eosinophils Percent Auto 6.4 % (0-4.4); Hematocrit 23.9 % (37.0-47.0); Hemoglobin 7.7 g/dL (12.0-15.0); Immature Granulocyte Absolute 0.03 K/mm3 (0.00-0.031); Immature Granulocyte Percent A 0.5 % (0-0.5); Lymphocytes Absolute Auto 0.94 K/mm3 (0.9-3.2); Lymphocytes Percent Auto 16.8 % (18.3-44.2); Mean Corpuscular HGB Conc 32.2 g/dl (32-36); Mean Corpuscular Hemoglobin 29.1 pg (26-34); Mean Corpuscular Volume 90.2 fl (80-100); Mean Platelet Volume 10.1 fl (7.4-10.4); Monocytes Absolute Auto 0.3 K/mm3 (0.1-0.6); Neutrophils Absolute Auto 3.9 K/mm3 (1.3-6.7); Neutrophils Percent Auto 70.2 % (45.5-73.1); Platelet Count Result 164 k/mm3 (150-375); Red Blood Count 2.65 M/mm3 (4.2-5.4); Red Cell Distribution Width 15.8 % (11.5-14.5); White Blood Count 5.6 K/mm3 (4.5-10.0)
[2025-05-05 04:46] LABS: Alanine Aminotransferase 16 U/L (6-35); Albumin Level 4.2 g/dL (3.5-5.1); Alkaline Phosphatase 145 U/L (38-126); Anion Gap 16 mmol/L (4-12); Aspartate Amino Transferase 21 U/L (14-36); Bilirubin,Total 0.6 mg/dL (0.2-1.3); Blood Urea Nitrogen 63 mg/dL (7-17); Calcium 7.8 mg/dL (8.4-10.2); Carbon Dioxide 21 mmol/L (22-30); Chloride 98 mmol/L (98-107); Estimated CRCL calculation 9 ml/min; Estimated Glomerular Filt Rate 5; Glucose 310 mg/dL (65-110); Iron 152 ug/dL (37-170); Magnesium 2.1 mg/dL (1.6-2.3); Potassium 4.9 mmol/L (3.4-5.0); Sodium 135 mmol/L (137-145); Total Protein 8.3 g/dL (6.3-8.2)
[2025-05-05 04:55] LABS: Percent Iron Saturation 74 % (20-50)
[2025-05-05 07:26] LABS: Glucose Point of Care 243 mg/dl (65-105)
[2025-05-05] MEDS: CALCIUM ACETATE 667 MG TABLET 1334 MG PO ×2 (08:16→13:21)
[2025-05-05] MEDS: ATORVASTATIN 10 MG TABLET PO (08:17)
[2025-05-05] MEDS: PANTOPRAZOLE 40 MG TABLET PO (08:17)
--- NOTE | 2025-05-05 10:05 | PM.PNNEP ---
Progress Note: A&P Assessment and Plan (1) End stage renal disease: Code(s): N18.6 - End stage renal disease Status: Chronic Assessment and Plan: HD tomorrow continue outpatient schedule of Thu/Thu/Thursday follow electrolytes, volume status, and clearance (2) Acute upper GI bleed: Code(s): K92.2 - Gastrointestinal hemorrhage, unspecified Status: Acute Assessment and Plan: as noted by history GI following s/p EGD: esophagitis and also Sade-Cabrera tear possible secondary to NG tube placement PRBC transfusion per protocol follow trend of H/H (3) Hyperkalemia: Code(s): E87.5 - Hyperkalemia Status: Acute Assessment and Plan: due to noncompliance with dialysis s/p medical mangement HD today (4) Hypertension: Code(s): I10 - Essential (primary) hypertension Status: Chronic Assessment and Plan: quite erratic at baseline pain issues maybe playing a role as well will restart carvedilol and losartan (home medications) may require PRN medications as well (5) Anemia: Code(s): D64.9 - Anemia, unspecified Status: Chronic Assessment and Plan: due to ESRD and complicated by #2 Epogen with HD follow trend of H/H (6) Type 1 diabetes: Code(s): E10.9 - Type 1 diabetes mellitus without complications Status: Chronic Assessment and Plan: follow accu-cheks glycemic control per hospitalist Will continue to follow. Subjective Date/time seen: 05/05/25 10:05 Interval history: Follow-up for end stage renal disease on hemodialysis. Tolerating dialysis treatment treatment at the time of my visit (seen on HD at 9:55); H/H remains relatively stable; s/p EGD yesterday with findings noted; no other acute complaints voiced when seen; overall, states she is feeling better; no events overnight or earlier this morning. Exam Narrative: General: WD/WN female in NAD Heart: normal S1 and S2; no rub Lungs: clear anteriorly; decreased at bases Abdomen: soft, nontender nondistended, positive bowel sounds Extremities: no cyanosis or clubbing; trace edema Skin: warm and intact Objective Data Vital Signs Vital Signs: Vital Signs Temp Pulse Resp BP Pulse Ox O2 Del Method FiO2 05/05/25 10:00 79 161/91 H 05/05/25 09:45 76 159/82 H 05/05/25 09:30 77 173/82 H 05/05/25 09:15 76 164/83 H 05/05/25 09:00 77 170/88 H 05/05/25 08:48 75 148/80 H 05/05/25 08:35 98.1 F 75 16 160/85 H 94 05/05/25 08:00 75 12 95 Room Air 21 05/05/25 07:46 97.6 F 75 12 140/69 95 05/05/25 06:00 69 05/05/25 04:00 73 05/05/25 04:00 Room Air 05/05/25 04:00 97.8 F 73 16 151/71 H 100 05/05/25 02:00 74 05/05/25 00:00 74 05/04/25 23:48 Room Air 05/04/25 23:47 98.2 F 76 16 146/79 H 99 05/04/25 22:00 77 05/04/25 20:16 81 20 90 Room Air 21 05/04/25 20:00 80 05/04/25 20:00 79 16 96 Room Air 05/04/25 20:00 98.3 F 79 16 125/87 96 05/04/25 18:00 85 Intake/Output Intake/Output: Intake & Output 05/02/25 05/03/25 05/04/25 05/05/25 23:59 23:59 23:59 23:59 Intake Total 1130 1790 Output Total 4000 0 4000 Balance -4000 1130 -2210 Meds/Results Medications: Active Medications Generic Name Dose Route Start Trade Name Freq PRN Reason Stop Acetaminophen 650 mg 05/03/25 13:18 Acetaminophen 325 Mg Tablet PO Q4H PRN Mild Pain (1-3) or Fever Albuterol 2 puff 05/03/25 17:40 Albuterol Sulfate (*Sp) Aerosol 1 Puff INHALATION DAILY PRN shortness of breath or wheezing Amlodipine Besylate 10 mg 05/04/25 09:00 Amlodipine Besylate 10 Mg Tablet PO DAILY [facility] Atorvastatin Calcium 10 mg 05/04/25 09:00 Atorvastatin 10 Mg Tablet PO DAILY [facility] Calcium Acetate 1,334 mg 05/04/25 09:00 Calcium Acetate 667 Mg Tablet PO TID [facility] Carvedilol 25 mg 05/04/25 09:00 Carvedilol 25 Mg Tablet PO BID KAREEN Dextrose 12.5 gm 05/03/25 20:22 Dextrose 50% 25 Gm/50 Ml Syringe IV PUSH PRN PRN Hypoglycemia Protocol Gabapentin 400 mg 05/04/25 09:00 Gabapentin 400 Mg Capsule PO TID KAREEN Glucagon 1 mg 05/03/25 20:22 Glucagon For Inj 1 Mg Vial IM PRN PRN Hypoglycemia Protocol Glucose 15 gm 05/03/25 20:22 Glucose Oral Gel 15 Gm Of Glucse In 37.5 Gm Tube PO PRN PRN Hypoglycemia Protocol Hydralazine HCl 25 mg 05/04/25 09:00 Hydralazine Hcl 25 Mg Tablet PO DAILY [facility] Hydralazine HCl 10 mg 05/03/25 17:56 Hydralazine Hcl 20 Mg/Ml Vial IV PUSH Q8H PRN Blood Pressure - High Albumin Human 50 mls @ 999 mls/hr 05/03/25 12:27 Albutein IVPB 06/02/25 12:26 Q10M PRN HYPOTENSION Dextrose 1,000 mls @ 100 mls/hr 05/03/25 20:22 Dextrose 5% 1,000 Ml IVPB PRN PRN Hypoglycemia Protocol Insulin Aspart 2 - 5 units 05/04/25 17:00 Insulin Aspart (*Bkc) 100 Units/Ml SUB-Q TIDWM [facility] Protocol Insulin Glargine 20 units 05/04/25 18:00 Insulin Glargine (*Bkc) 100 Units/Ml SUB-Q QPM KAREEN Losartan Potassium 100 mg 05/04/25 09:00 Losartan Potassium 100 Mg Tablet PO DAILY [facility] Pantoprazole Sodium 40 mg 05/04/25 21:00 Pantoprazole 40 Mg Tablet PO Q12HR [facility] Trazodone HCl 100 mg 05/03/25 21:00 Trazodone Hcl 50 Mg Tablet BY MOUTH HS PRN Sleep Radiology Results: ITS Impressions Chest X-Ray 05/03/25 12:07 IMPRESSION: 1. Increasing groundglass opacities in the bilateral lungs which could represent pulmonary edema, pneumonia or atelectasis. Abdomen X-Ray 05/03/25 13:04 IMPRESSION: 1. Nasogastric tube in stomach. 2. Diffuse bilateral interstitial and airspace opacities in the mid to lower lungs and favor mild pulmonary edema over pneumonia. Head CT 05/03/25 20:17 Impression: No acute intracranial hemorrhage or suspicious mass effect. Brain MRI 05/04/25 09:27 IMPRESSION: 1. Normal for age brain MR. No acute intracranial process. Labs Labs: Laboratory Tests 05/05/25 04:25 05/05/25 04:25 Calcium 7.8 L Magnesium 2.1 Iron 152 TIBC 205 L % Saturation 74 H Ferritin 857.00 H Total Bilirubin 0.6 AST 21 ALT 16 Alkaline Phosphatase 145 H Total Protein 8.3 H Albumin 4.2 Microbiology 05/03/25 20:24 Blood Blood Culture - Preliminary 05/03/25 20:24 Blood Blood Culture - Preliminary
[2025-05-05 11:20] LABS: Glucose Point of Care 203 mg/dl (65-105)
[2025-05-05] MEDS: EPOETIN ALFA-EPBX 10,000 UNITS/ML VIAL 10000 UNITS IV PUSH (11:25)
[2025-05-05] MEDS: INSULIN ASPART (*BKC) 100 UNITS/ML SUB-Q (13:21)
[2025-05-05] MEDS: carvediloL 25 MG TABLET PO (13:21)
[2025-05-05] MEDS: hydrALAZINE HCL 25 MG TABLET PO (13:21)
[2025-05-05] MEDS: LOSARTAN POTASSIUM 100 MG TABLET PO (13:22)
[2025-05-05] MEDS: GABAPENTIN 400 MG CAPSULE PO (13:22)
[2025-05-05] MEDS: amLODIPine BESYLATE 10 MG TABLET PO (13:22)
--- NOTE | 2025-05-05 13:40 | P.DS_ITS ---
DS: Admitting Diagnosis Discharge Date 05/05/25 Admitting Diagnosis upper Gi bleed DS: Discharge Diagnosis Discharge Diagnosis (1) Acute upper GI bleed: Code(s): K92.2 - Gastrointestinal hemorrhage, unspecified Status: Acute Assessment and Plan: Protonix po received Transfuse 2 units RBC EGD: Sade Cabrera tear, Esophagitis (2) End stage renal disease on dialysis: Code(s): N18.6 - End stage renal disease; Z99.2 - Dependence on renal dialysis Status: Acute Assessment and Plan: Nephrology consulted underwent dialysis today (3) Hypertension: Code(s): I10 - Essential (primary) hypertension Status: Chronic Assessment and Plan: Uncontrolled hypertension Patient complained of headache blurriness and numbness after hydralazine. Her pressure dropped about [address] done with no acute findings MRI normal exam Continue Amlodipine, Losartan and Coreg (4) Hyperkalemia: Code(s): E87.5 - Hyperkalemia Status: Acute Assessment and Plan: Insulin and bicarb given emergency room continue dialysis Nephrology on board (5) Anemia: Code(s): D64.9 - Anemia, unspecified Status: Chronic Assessment and Plan: Acute on chronic due to end-stage renal disease See plan above (6) Type 1 diabetes: Code(s): E10.9 - Type 1 diabetes mellitus without complications Status: Chronic Assessment and Plan: [employer] meds Plan DVT prophylaxis on SCDs, no AC due to GI bleed DS: Summary Hospital Course Hospital Course: per HPi: 39-year-old female past medical history of type 1 diabetes, end-stage renal disease on dialysis, CHF, PUD on hypertension presents the hospital with hemoptysis and dark tardy stools. Due to patient being upset about NG tube she gets little information. She states that she is tired of being sick and she does not want to be in the hospital any more. She does not understand why she has NG tube. Patient denies fever chills. She states that she missed dialysis due to weakness. NAD she has a hemoglobin of 6.0, potassium 6.3, BUN of 118, creatinine of 13 point time, glucose of 245, calcium 7.1, TB ICU 195, saturation 58%, ferritin 853, [place] [address]. Chest x-ray shows Increasing groundglass opacities in the bilateral lungs which could represent pulmonary edema, pneumonia or atelectasis. KUB shows NG tube in stomach. Patient is being admitted for acute GI bleed and emergent dialysis. 05/05/25 Patient was seen and examined at bedside. Denies any chest pain, shortness the breath, abdominal pain, nausea vomiting. The GI team on board. EGD showed esophagitis and also Sade-Cabrera tear possible secondary to NG tube placement. Recommend PPI. Nephrology team onboard. Patient underwent hemodialysis. Patient was complaining of numbness in the right hand. Neurology team on board. MRI unremarkable. recommended NCV/EMG as outpatient. Patient is feeling better. Hemoglobin improving. Denies any more bleeding. Status at Discharge Overall status at discharge: patient is back to baseline Time Spent with Patient Time attestation: Total time spent providing and/or coordinating discharge services: Time spent: Greater than 30 minutes Exam Narrative: General: well appearing, appears stated age. HEENT: normocephalic, atraumatic. Mucous membranes moist. EOMI, PERRLA, bilateral sclera anicteric, no conjunctival injection. Neck supple without JVD, lymphadenopathy, or bruit. Respiratory: clear to ascultation bilaterally. No rales/rhonic/wheezes. Cardiovascular: Regular rate and rhythm, normal S1-S2 upon ascultation. No murmurs, rubs, or clicks. PMI is nondisplaced, capillary refill less than 3 second. Abdomen: Soft, round, no pulsatile masses, nondistended and nontender. No rebound, no guarding. No CVA tenderness, no hepatosplenomegaly. Bowel sounds present to all four quadrants. No high pitch or tinkling sounds, resonant to percussion. Extremities: No cyanosis, clubbing, or edema present. Pulses are palpable 2/2. Active ROM to all four extremities. Neuro: Alert and orientated x 4. PERRLA. Cranial nerves 2-12 intact without focal deficit. Skin: Warm, dry, and intact, without rash, erythema, or lesion. Psych: pleasant, cooperative, normal speech, normal affect, no hallucinations, no dysarthia Fistula on left arm DS: Data Data Completed and Pending Labs on day of discharge: Labs from last 24 hours 05/05/25 05/05/25 05/05/25 11:16 07:21 04:25 WBC 5.6 RBC 2.65 L Hgb 7.7 L Hct 23.9 L MCV 90.2 MCH 29.1 MCHC 32.2 RDW 15.8 H Plt Count 164 MPV 10.1 Immature Gran % (Auto) 0.5 Neut % (Auto) 70.2 Lymph % (Auto) 16.8 L [place] % (Auto) 5.0 Eos % (Auto) 6.4 H Baso % (Auto) 1.1 Lymph # (Auto) 0.94 [place] # (Auto) 0.3 Eos # (Auto) 0.4 H Baso # (Auto) 0.1 Abs Immat Gran (auto) 0.03 Absolute Neuts (auto) 3.9 Absolute Nucleated RBC 0.000 Nucleated RBC % 0.0 Sodium 135 L Potassium 4.9 Chloride 98 Carbon Dioxide 21 L Anion Gap 16 H BUN 63 H Creatinine 8.73 H Estim Creat Clear Calc 9 Estimated GFR 5 L Glucose 310 H POC Capillary Glucose 203 H 243 H Calcium 7.8 L Magnesium 2.1 Iron 152 TIBC 205 L % Saturation 74 H Ferritin 857.00 H Total Bilirubin 0.6 AST 21 ALT 16 Alkaline Phosphatase 145 H Total Protein 8.3 H Albumin 4.2 05/04/25 05/04/25 05/04/25 21:19 19:51 16:03 WBC RBC Hgb Hct MCV MCH MCHC RDW Plt Count MPV Immature Gran % (Auto) Neut % (Auto) Lymph % (Auto) [place] % (Auto) Eos % (Auto) Baso % (Auto) Lymph # (Auto) [place] # (Auto) Eos # (Auto) Baso # (Auto) Abs Immat Gran (auto) Absolute Neuts (auto) Absolute Nucleated RBC Nucleated RBC % Sodium Potassium Chloride Carbon Dioxide Anion Gap BUN Creatinine Estim Creat Clear Calc Estimated GFR Glucose POC Capillary Glucose 291 H 288 H 191 H Calcium Magnesium Iron TIBC % Saturation Ferritin Total Bilirubin AST ALT Alkaline Phosphatase Total Protein Albumin 05/04/25 05/04/25 15:36 14:14 WBC RBC Hgb Hct MCV MCH MCHC RDW Plt Count MPV Immature Gran % (Auto) Neut % (Auto) Lymph % (Auto) [place] % (Auto) Eos % (Auto) Baso % (Auto) Lymph # (Auto) [place] # (Auto) Eos # (Auto) Baso # (Auto) Abs Immat Gran (auto) Absolute Neuts (auto) Absolute Nucleated RBC Nucleated RBC % Sodium Potassium Chloride Carbon Dioxide Anion Gap BUN Creatinine Estim Creat Clear Calc Estimated GFR Glucose POC Capillary Glucose 174 H 202 H Calcium Magnesium Iron TIBC % Saturation Ferritin Total Bilirubin AST ALT Alkaline Phosphatase Total Protein Albumin Preliminary micro results at discharge 05/03/25 20:24 Blood Culture - Preliminary Blood 05/03/25 20:24 Blood Culture - Preliminary Blood Discharge Plan Discharge Attending physician on discharge: Fátima Mack Consulting providers: Uziel Lundy; Chelsie Basilio; Evelina Friend Discharging Clinician: Fátima Mack Anticipated Discharge Date/Time: 05/05/25 16:47 Patient Disposition: Home Activity: as tolerated Diet: heart healthy, diabetic and renal Discharge Instructions: Follow-up with Neurology, NCV/EMG as outpatient. Follow-up with nephrology consult patient Check your blood pressure heart regular report to PCP Patient Instructions: Antibiotic Form Patient Language: [place]an Stand Alone Forms: General Discharge Information Follow-up/Referrals: Mango,Char [facility] [Other] - 1 Week Evelina Friend MD [Physician] - Call for Appointment Discharge Medications: Continued metoclopramide HCl [Reglan] 10 mg tablet 10 mg PO Q6H PRN (Reason: nausea and vomiting) Qty: 20 0RF carvedilol 25 mg tablet 25 mg PO BID atorvastatin 10 mg tablet 10 mg PO DAILY gabapentin 400 mg capsule 400 mg PO TID amlodipine 10 mg tablet 10 mg PO DAILY losartan 100 mg tablet 100 mg PO DAILY calcium acetate(phosphat bind) 667 mg capsule 1,334 mg PO TID ferrous sulfate 325 mg (65 mg iron) tablet 325 mg PO DAILY Qty: 10 0RF insulin aspart U-100 [Novolog FlexPen U-100 Insulin] 100 unit/mL (3 mL) insulin pen 3 unit SUBCUT TIDWM Qty: 15 0RF insulin degludec [Tresiba FlexTouch U-100] 100 unit/mL (3 mL) insulin pen 20 unit SUBCUT QPM albuterol sulfate 90 mcg/actuation HFA aerosol inhaler 2 puff INHALATION DAILY PRN (Reason: shortness of breath or wheezing) hydralazine 25 mg tablet 25 mg PO DAILY trazodone 100 mg tablet See Rx Instructions .ROUTE .COMPLEX Qty: 90 1RF Dose Instruction: TAKE 1 TABLET BY MOUTH EVERY DAY AT BEDTIME NEEDED FOR SLEEP Rx Instructions: TAKE 1 TABLET BY MOUTH EVERY DAY AT BEDTIME NEEDED FOR SLEEP Changed pantoprazole 40 mg tablet,delayed release (DR/EC) 40 mg PO BID Qty: 60 0RF Date of admission: 05/04/25 16:31 Primary Care Provider: Mango,Char [facility] Admitting Provider: Luis Antonio Velazquez Attending physician on admission: Fátima Mack Condition: Stable Quality VTE Prophylaxis VTE prophylaxis: mechanical ordered
[2025-05-05] MEDS: ACETAMINOPHEN 325 MG TABLET 650 MG PO (15:38)
== END 2025-05-05 15:48 | disposition home or self-care (01) | DRG 368 ==
LOC: ANHED 12:26 → ANHIMU 12:39
PROVIDERS: Anesthesiology; Internal Medicine; Internal Medicine Gastroenterology; Internal Medicine Nephrology; Nurse Practitioner Gerontology; Admitting Provider General Practice; Emergency Provider Emergency Medicine; Visit Provider Internal Medicine
PROC: 0DJ08ZZ Inspection of Upper Intestinal Tract, Via Natural or Artificial Opening Endoscopic (ICD-10-PCS; principal; 2025-05-04 14:30)
DX: K22.6 Gastro-esophageal laceration-hemorrhage syndrome (principal); N18.6 End stage renal disease; I13.2 Hypertensive heart and chronic kidney disease with heart failure and with stage 5 chronic kidney disease, or end stage renal disease; T85.898A Other specified complication of other internal prosthetic devices, implants and grafts, initial encounter; I50.9 Heart failure, unspecified; K20.90 Esophagitis, unspecified without bleeding; E10.22 Type 1 diabetes mellitus with diabetic chronic kidney disease; E10.42 Type 1 diabetes mellitus with diabetic polyneuropathy; E10.43 Type 1 diabetes mellitus with diabetic autonomic (poly)neuropathy; K31.84 Gastroparesis; E87.5 Hyperkalemia; D64.9 Anemia, unspecified; J45.909 Unspecified asthma, uncomplicated; K27.9 Peptic ulcer, site unspecified, unspecified as acute or chronic, without hemorrhage or perforation; R20.0 Anesthesia of skin; K21.9 Gastro-esophageal reflux disease without esophagitis; F12.10 Cannabis abuse, uncomplicated; F17.210 Nicotine dependence, cigarettes, uncomplicated; Z99.2 Dependence on renal dialysis; Z79.4 Long term (current) use of insulin
CPT/HCPCS: 36415; 36430; 70450; 70551; 71045; 80048; 80053; 82607; 82728; 82746; 82948; 83540; 83550; 83735; 83880; 84132; 84466; 84703; 85014; 85018; 85025; 85046; 85610; 85730; 86706; 86850; 86860; 86870; 86880; 86900; 86901; 86902; 86906; 86922; 86971; 87040; 87340; 87641; 93005; 96361; 96374; 96375; 96376; 99285; A9270; G0257; G0378; J0360; J0612; J1815; J2003; J2060; J2470; J2704; J7030; J7040; J7042; J7050; P9016; Q5105

== ENCOUNTER 2025-10-02 09:37 | Observation (INO) | payer MEDICARE, MEDICAID, SELFPAY ==
[2025-10-02] VITALS (11 sets, daily range): BP systolic 162–198; BP diastolic 78–105; PULSE 84–106; RESP 12–97; TEMP 36.6–37.4; O2SAT 95–100; BMI 31.4
--- NOTE | ~2025-10-02 | XR_ITS ---
Examination: XR chest 2V Clinical History: sob cough, productive Comparison: 05/03/2025 Technique: PA and Lateral Findings: Unchanged cardiomegaly. Right infrahilar opacity. No acute bony abnormality. IMPRESSION: 1. Right hilar bronchitis and/or developing airspace disease. Reviewed, dictated and finalized at location [facility]. [employer]
--- NOTE | 2025-10-02 13:54 | ED.SOB ---
HPI - SOB/Dyspnea General Chief Complaint: Shortness of Breath/Dyspnea <Katelyn Gardiner PA-C - Last Filed: 10/02/25 14:04> Stated Complaint: SOB <Katelyn Gardiner PA-C - Last Filed: 10/02/25 14:04> Time Seen by Provider: 10/02/25 13:54 <Katelyn Gardiner PA-C - Last Filed: 10/02/25 14:04> Focused HPI: Patient is a 40 y/o female, with PMH of ESRD on HD MWF, CHF, DM, who presents to the ED with c/o SOB/URI sx's. Patient reports she has not been feeling well for the past 1 week, but began having URI symptoms on Thursday. Reports SOB, chest congestion, rhinorrhea, cough, fatigue. Denies sick contacts, CP, fevers. States she did not go to dialysis today due to not feeling well. Had a full dialysis treatment on Thursday. Clinical Informatics Director is Dr. Basilio. GENERAL: Well-appearing, obese w/ BMI 31.6, and in no acute distress. HEAD: Normocephalic, atraumatic. CHEST: Clear to auscultation. ?No respiratory distress. HEART: Regular rate and rhythm.? NEURO: ?Alert and oriented x3. Patient screened in triage and initial orders placed.? ?Additional care and disposition to be based upon?diagnostic testing and treatment. <Katelyn Gardiner PA-C - Last Filed: 10/02/25 14:04> Source: patient <Katelyn Gardiner PA-C - Last Filed: 10/02/25 14:04> Mode of arrival: ambulatory <SAM Pak Last Filed: 10/02/25 14:04> Limitations: no limitations <Katelyn Gardiner PA-C - Last Filed: 10/02/25 14:04> History of Present Illness HPI Narrative: I agree with the above HPI <Gee Mccallum MD - Last Filed: 10/02/25 18:41> Related Data Home Medications: Home Medications ?Medication ?Instructions ?Recorded ?Confirmed ?Last Taken ?Type amlodipine 10 mg tablet 10 mg PO DAILY 03/21/24 10/02/25 10/01/25 History atorvastatin 10 mg tablet 10 mg PO DAILY 03/21/24 10/02/25 10/01/25 History carvedilol 25 mg tablet 25 mg PO BID 03/21/24 10/02/25 10/01/25 History gabapentin 400 mg capsule 400 mg PO TID 03/21/24 10/02/25 10/01/25 History losartan 100 mg tablet 100 mg PO DAILY 03/21/24 10/02/25 10/01/25 History calcium acetate(phosphat bind) 667 1,334 mg PO TID 03/22/24 10/02/25 10/01/25 History mg capsule albuterol sulfate 90 mcg/actuation 2 puff inhalation DAILY PRN 05/03/25 10/02/25 10/01/25 History aerosol inhaler shortness of breath or wheezing hydralazine 25 mg tablet 25 mg PO DAILY 05/03/25 10/02/25 10/01/25 History insulin degludec 100 unit/mL (3 20 unit subcut QPM 05/03/25 10/02/25 10/01/25 History mL) subcutaneous pen (Tresiba FlexTouch U-100 insulin) <Katelyn Gardiner PA-C - Last Filed: 10/02/25 14:04> Allergies/Adverse Reactions: Allergies Allergy/AdvReac Type Severity Reaction Status Date / Time No Known Allergies Allergy Verified 10/02/25 18:28 <Katelyn Gardiner PA-C - Last Filed: 10/02/25 14:04> Review of Systems Review of Systems: All systems reviewed & are unremarkable except as noted in HPI and below <Gee Mccallum MD - Last Filed: 10/02/25 18:41> [facility] Past Medical History Medical History: Medical History (Updated 10/02/25 @ 16:08 by Gee Mccallum MD) Numbness of right hand Epistaxis Melena Acute on chronic anemia Gastroparesis CHF (congestive heart failure) Anemia Reactive airway disease PUD (peptic ulcer disease) Peripheral neuropathy GERD (gastroesophageal reflux disease) Hypertension Cannabis use disorder Type 1 diabetes Arteriovenous fistula for hemodialysis in place, primary End stage renal disease on dialysis <Katelyn Gardiner PA-C - Last Filed: 10/02/25 14:04> Surgical History Surgical History: Surgical History Hx laparoscopic cholecystectomy lap robina, Da Robin assisted 04/05/24 S/P arteriovenous (AV) fistula creation History of appendectomy <SAM Pak Last Filed: 10/02/25 14:04> Family History Family History: Family History Father Diabetes mellitus Mother Diabetes mellitus Sibling Diabetes mellitus Gastric bypass status for obesity <SAM Pak Last Filed: 10/02/25 14:04> Social History Social History: Social History Smoking packs per day: 1 Smoking cigarettes per day: 20.0 Years smoked: 24 Smoking pack-years: 24.00 Smoking status: Light tobacco smoker Tobacco type: cigarettes Alcohol intake: never Drinks per week: 0 Substance use: current Substance use type: marijuana Other substance usage details: not very often Last use: Tara Do You Feel Safe in your Home?: Yes Lack of Transportation: No Lack of Food: Never True Current Housing: I Have Housing Concerned About Future Housing: No Difficulty Paying Gas/Electric Bills: No Difficulty Paying for Meds: No Currently Unemployed: No Education: High School Diploma/GED Difficulty w/ Childcare or Family Care: No Living arrangements: with family Spiritual care concerns: No <SAM Pak Last Filed: 10/02/25 14:04> Exam Narrative: APPEARANCE: Ill-appearing HEAD: normocephalic, atraumatic. EYES: PERRLA/EOMI, conjunctivae clear. NOSE: Normal no drainage EARS:TMS clear with good light reflex. THROAT: Pharynx clear, no exudate. NECK: Supple. No adenopathy, no masses. RESPIRATORY: Airway patent, respirations nonlabored. Clear to auscultation bilaterally, no rales, rhonchi, wheezing. CARDIOVASCULAR: Regular rate and rhythm without murmurs rubs or gallops. ABDOMINAL: Soft, nontender, nondistended, normal bowel sounds MUSCULOSKELETAL: Moves all extremities. Strength/ROM intact, No edema, No calf tenderness. NEURO: Alert. Cranial nerves II through XII intact. Good gait. Good coordination SKIN: Warm, dry. Normal Color <Gee Mccallum MD - Last Filed: 10/02/25 18:41> Course Vital Signs Vital signs: Vital Signs Temperature 97.9 F 10/02/25 10:08 Pulse Rate 87 10/02/25 10:08 Respiratory Rate 97 H 10/02/25 10:08 Blood Pressure 194/102 H 10/02/25 10:08 Oxygen Delivery Room Air 10/02/25 10:08 Temperature 98.4 F 10/02/25 17:55 Pulse Rate 98 10/02/25 17:55 Respiratory Rate 16 10/02/25 17:55 Blood Pressure 162/78 H 10/02/25 17:55 Pulse Oximetry 95 10/02/25 17:55 Oxygen Delivery Room Air 10/02/25 14:38 <Katelyn Gardiner PA-C - Last Filed: 10/02/25 14:04> Vital Signs Temperature 97.9 F 10/02/25 10:08 Pulse Rate 87 10/02/25 10:08 Respiratory Rate 97 H 10/02/25 10:08 Blood Pressure 194/102 H 10/02/25 10:08 Oxygen Delivery Room Air 10/02/25 10:08 Temperature 98.4 F 10/02/25 17:55 Pulse Rate 98 10/02/25 17:55 Respiratory Rate 16 10/02/25 17:55 Blood Pressure 162/78 H 10/02/25 17:55 Pulse Oximetry 95 10/02/25 17:55 Oxygen Delivery Room Air 10/02/25 14:38 <Gee Mccallum MD - Last Filed: 10/02/25 18:41> MDM - SOB/Dyspnea MDM Narrative Medical decision making narrative: MSE by JOANN in triage. <Katelyn Gardiner PA-C - Last Filed: 10/02/25 14:04> MSE by JOANN in triage. 40-year-old female history of end-stage renal disease and missed dialysis today secondary to respiratory infection generalized fatigue. Patient states she began feeling ill on Thursday but did get dialysis Thursday. Patient reports this did not help her symptoms. Patient reports she was too sick today to get dialysis. Patient is currently afebrile leukocytosis hemoglobin of 10.9 which is good for her baseline. Patient does have elevated potassium of 5.6 and anion gap of 16 and a glucose of 213. Patient will be started on IV antibiotics for concern for pneumonia. Nephrology was consulted due to the patient missing dialysis. Patient's hyperkalemia was treated with IV calcium, insulin, albuterol, sodium bicarbonate. Case was discussed with hospitalist patient was admitted to IMU. <Gee Mccallum MD - Last Filed: 10/02/25 18:41> Differential Diagnosis Differential diagnosis: Likely acute exacerbation of chronic obstructive airways disease, congestive heart failure, community acquired pneumonia, asthma with exacerbation and pulmonary embolism <Gee Mccallum MD - Last Filed: 10/02/25 18:41> Lab Data Attestation: I reviewed the patient's lab results. <Gee Mccallum MD - Last Filed: 10/02/25 18:41> Result diagrams: 10/02/25 14:10 10/02/25 14:10 <Katelyn Gardiner PA-C - Last Filed: 10/02/25 14:04> Labs: Lab Results 10/02/25 Range/Units 14:10 WBC 7.5 (4.5-10.0) K/mm3 RBC 3.64 L (4.2-5.4) M/mm3 Hgb 10.9 L D (12.0-15.0) g/dL Hct 33.5 L (37.0-47.0) % MCV 92.0 (80-100) fl MCH 29.9 (26-34) pg MCHC 32.5 (32-36) g/dl RDW 15.6 H (11.5-14.5) % Plt Count 207 (150-375) k/mm3 MPV 9.9 (7.4-10.4) fl Immature Gran % (Auto) 0.4 (0-0.5) % Neut % (Auto) 68.1 (45.5-73.1) % Lymph % (Auto) 19.5 (18.3-44.2) % Sharkey % (Auto) 4.4 (2.6-8.5) % Eos % (Auto) 6.8 H (0-4.4) % Baso % (Auto) 0.8 (0.2-1.2) % Lymph # (Auto) 1.47 (0.9-3.2) K/mm3 Sharkey # (Auto) 0.3 (0.1-0.6) K/mm3 Eos # (Auto) 0.5 H (0-0.3) K/mm3 Baso # (Auto) 0.1 (0.0-0.1) K/mm3 Abs Immat Gran (auto) 0.03 (0.00-0.031) K/mm3 Absolute Neuts (auto) 5.1 (1.3-6.7) K/mm3 Absolute Nucleated RBC 0.000 (0.0-0.012) K/mm3 Nucleated RBC % 0.0 (0.0-0.2) % PT 14.1 (11.1-14.7) Seconds INR 1.1 APTT 30.6 (22.3-36.8) Seconds Sodium 134 L (137-145) mmol/L Potassium 5.6 H (3.4-5.0) mmol/L Chloride 92 L (98-107) mmol/L Carbon Dioxide 26 (22-30) mmol/L Anion Gap 16 H (4-12) mmol/L BUN 70 H (7-17) mg/dL Creatinine 10.44 H (0.7-1.0) mg/dL Estim Creat Clear Calc 8 ml/min Estimated GFR 4 L (59 - ) Glucose 213 H (65-110) mg/dL Calcium 6.8 L (8.4-10.2) mg/dL Total Bilirubin 0.7 (0.2-1.3) mg/dL AST 28 (14-36) U/L ALT 16 (6-35) U/L Alkaline Phosphatase 138 H (38-126) U/L NT-Pro-B Natriuret Pep 45762 H (19.9-100) pg/mL Total Protein 8.7 H (6.3-8.2) g/dL Albumin 4.4 (3.5-5.1) g/dL Influenza A (RT-PCR) Negative (Negative) Influenza B (RT-PCR) Negative (Negative) RSV (RT-PCR) Negative (Negative) SARS-CoV-2 RNA (RT-PCR) Negative (Negative) <Katelyn Gardiner PA-C - Last Filed: 10/02/25 14:04> Lab Results 10/02/25 Range/Units 14:10 WBC 7.5 (4.5-10.0) K/mm3 RBC 3.64 L (4.2-5.4) M/mm3 Hgb 10.9 L D (12.0-15.0) g/dL Hct 33.5 L (37.0-47.0) % MCV 92.0 (80-100) fl MCH 29.9 (26-34) pg MCHC 32.5 (32-36) g/dl RDW 15.6 H (11.5-14.5) % Plt Count 207 (150-375) k/mm3 MPV 9.9 (7.4-10.4) fl Immature Gran % (Auto) 0.4 (0-0.5) % Neut % (Auto) 68.1 (45.5-73.1) % Lymph % (Auto) 19.5 (18.3-44.2) % Sharkey % (Auto) 4.4 (2.6-8.5) % Eos % (Auto) 6.8 H (0-4.4) % Baso % (Auto) 0.8 (0.2-1.2) % Lymph # (Auto) 1.47 (0.9-3.2) K/mm3 Sharkey # (Auto) 0.3 (0.1-0.6) K/mm3 Eos # (Auto) 0.5 H (0-0.3) K/mm3 Baso # (Auto) 0.1 (0.0-0.1) K/mm3 Abs Immat Gran (auto) 0.03 (0.00-0.031) K/mm3 Absolute Neuts (auto) 5.1 (1.3-6.7) K/mm3 Absolute Nucleated RBC 0.000 (0.0-0.012) K/mm3 Nucleated RBC % 0.0 (0.0-0.2) % PT 14.1 (11.1-14.7) Seconds INR 1.1 APTT 30.6 (22.3-36.8) Seconds Sodium 134 L (137-145) mmol/L Potassium 5.6 H (3.4-5.0) mmol/L Chloride 92 L (98-107) mmol/L Carbon Dioxide 26 (22-30) mmol/L Anion Gap 16 H (4-12) mmol/L BUN 70 H (7-17) mg/dL Creatinine 10.44 H (0.7-1.0) mg/dL Estim Creat Clear Calc 8 ml/min Estimated GFR 4 L (59 - ) Glucose 213 H (65-110) mg/dL Calcium 6.8 L (8.4-10.2) mg/dL Total Bilirubin 0.7 (0.2-1.3) mg/dL AST 28 (14-36) U/L ALT 16 (6-35) U/L Alkaline Phosphatase 138 H (38-126) U/L NT-Pro-B Natriuret Pep 44949 H (19.9-100) pg/mL Total Protein 8.7 H (6.3-8.2) g/dL Albumin 4.4 (3.5-5.1) g/dL Influenza A (RT-PCR) Negative (Negative) Influenza B (RT-PCR) Negative (Negative) RSV (RT-PCR) Negative (Negative) SARS-CoV-2 RNA (RT-PCR) Negative (Negative) <Gee Mccallum MD - Last Filed: 10/02/25 18:41> Imaging Data Attestation: I personally reviewed and interpreted this imaging study as follows: <Gee Mccallum MD - Last Filed: 10/02/25 18:41> My impression: Chest x-ray: Pneumonia <Gee Mccallum MD - Last Filed: 10/02/25 18:41> Radiologist's impression: Impressions Chest X-Ray 10/02/25 14:37 IMPRESSION: 1. Right hilar bronchitis and/or developing airspace disease. <Gee Mccallum MD - Last Filed: 10/02/25 18:41> Discharge Plan Discharge Clinical Impression: Pneumonia, Hyperglycemia, Hyperkalemia, ESRD (end stage renal disease) <Katelyn Gardiner PA-C - Last Filed: 10/02/25 14:04> Patient Disposition: Still a Patient <Katelyn Gardiner PA-C - Last Filed: 10/02/25 14:04> Condition: Serious <Katelyn Gardiner PA-C - Last Filed: 10/02/25 14:04>
--- NOTE | 2025-10-02 13:58 | ECG_ITS ---
Test Date: 2025-10-02 14:19:48 Measurements Intervals [place] Rate: 81 P: 29 DE: 196 QRS: -50 QRSD: 86 T: 47 QT: 432 QTc: 502 Interpretive Statements SINUS RHYTHM POSSIBLE LEFT ATRIAL ENLARGEMENT [-0.1mV P-WAVE IN V1/V2] LEFT ANTERIOR FASCICULAR BLOCK [QRS AXIS <= -45, QR IN I, RS IN II] POSSIBLE ANTERIOR MYOCARDIAL INFARCTION , OF INDETERMINATE AGE [30 ms Q WAVE IN V3/V4, OR R < 0.2 mV IN V4] Compared to ECG 05/03/2025 11:57:07 Left anterior fascicular block now present Incomplete right bundle-branch block no longer present Myocardial infarct finding still present Electronically Signed On 10-02-2025 15:22:17 CREDIT COUNSELOR by Wing Dumas M.D.
[2025-10-02 14:18] LABS: Hematocrit 33.5 % (37.0-47.0); Hemoglobin 10.9 g/dL (12.0-15.0); Immature Granulocyte Percent A 0.4 % (0-0.5); Lymphocytes Absolute Auto 1.47 K/mm3 (0.9-3.2); Mean Corpuscular HGB Conc 32.5 g/dl (32-36); Mean Corpuscular Hemoglobin 29.9 pg (26-34); Mean Corpuscular Volume 92.0 fl (80-100); Nucleated Red Blood Cells Absolute Auto 0.000 K/mm3 (0.0-0.012); Nucleated Red Blood Cells Perc 0.0 % (0.0-0.2); Platelet Count Result 207 k/mm3 (150-375); Red Blood Count 3.64 M/mm3 (4.2-5.4); White Blood Count 7.5 K/mm3 (4.5-10.0)
[2025-10-02 14:29] LABS: Alanine Aminotransferase 16 U/L (6-35); Albumin Level 4.4 g/dL (3.5-5.1); Alkaline Phosphatase 138 U/L (38-126); Anion Gap 16 mmol/L (4-12); Aspartate Amino Transferase 28 U/L (14-36); Bilirubin,Total 0.7 mg/dL (0.2-1.3); Blood Urea Nitrogen 70 mg/dL (7-17); Calcium 6.8 mg/dL (8.4-10.2); Carbon Dioxide 26 mmol/L (22-30); Chloride 92 mmol/L (98-107); Estimated CRCL calculation 8 ml/min; Estimated Glomerular Filt Rate 4; Glucose 213 mg/dL (65-110); INR 1.1; Potassium 5.6 mmol/L (3.4-5.0); Prothrombin Time 14.1 Seconds (11.1-14.7); Sodium 134 mmol/L (137-145); Total Protein 8.7 g/dL (6.3-8.2)
[2025-10-02 14:30] LABS: Partial Thromboplastin Time 30.6 Seconds (22.3-36.8)
[2025-10-02 14:37] LABS: NT Pro B Type Natriuretic Pept 16800 pg/mL (19.9-100)
[2025-10-02 14:58] LABS: Influenza A QL RT-PCR Negative (Negative); Influenza B QL RT-PCR Negative (Negative); RSV RNA, RT-PCR Negative (Negative); SARS-CoV-2 RNA PCR Negative (Negative)
[2025-10-02] MEDS: ALBUTEROL SULFATE NEB 2.5 MG/3 ML INH 10 MG INHALATION (16:15)
--- NOTE | 2025-10-02 16:41 | PC.NURSE ---
pharmacy called for calcium gluconate
[2025-10-02] MEDS: CALCIUM GLUC 1,000 MG/NS 50 ML 1,000 MG/50 ML BAG 100 MG IVPB (16:51)
[2025-10-02] MEDS: INSULIN HUMAN REGULAR (*BKC) 100 UNITS/ML IV PUSH (16:52)
[2025-10-02] MEDS: SODIUM BICARBONATE 8.4% 50 MEQ/50 ML SYRINGE IV PUSH (16:52)
[2025-10-02] MEDS: cefTRIAXone 1 GM in SODIUM CHLORIDE 0.9% IV 50 ML 100 ML IVPB (16:54)
--- NOTE | 2025-10-02 17:05 | WPCEDHO ---
ED Hand Off Checklist All vitals saved: yes IV Site documented: yes All med administrations documented: yes Triage Note Triage Note Pt to ED co SOB since 09/29/25. 10/02/25 14:37 Pt states she was supposed to go to dialysis today but came here instead. Pt endorses productive cough with green sputum and congestion. this RN agrees with triage assessment Allergies No Known Allergies Allergy (Verified 10/02/25 09:40) Family History (Last Reviewed 05/04/25 @ 13:31 by Evelina Friend MD) Father Diabetes mellitus Mother Diabetes mellitus Sibling Diabetes mellitus Gastric bypass status for obesity Administered/Completed Medications Discontinued Medications Albuterol (Albuterol Sulfate Neb 2.5 Mg/3 Ml Inh) 10 mg INHALATION ONCE STA Stop: 10/02/25 16:05 Last Admin: 10/02/25 16:15 Dose: 10 mg Documented By: DEMETRIUS Ceftriaxone Sodium 1 gm/ (Sodium Chloride) 50 mls @ 100 mls/hr IVPB ONCE STA Stop: 10/02/25 16:12 Last Admin: 10/02/25 16:54 Dose: 100 mls/hr Documented By: SEAN Calcium Gluconate (Calcium Gluc 1,000 Mg/Ns 50 Ml) 1,000 mg in 50 mls @ 100 mls/hr IVPB ONCE STA Stop: 10/02/25 16:33 Last Admin: 10/02/25 16:51 Dose: 100 mls/hr Documented By: SEAN Insulin Human Regular (Insulin Human Regular (*Bkc) 100 Units/Ml) 3 units IV PUSH ONCE ONE Stop: 10/02/25 16:00 Last Admin: 10/02/25 16:52 Dose: 3 units Documented By: SEAN Co-signed By: MLI Sodium Bicarbonate (Sodium Bicarbonate 8.4% 50 Meq/50 Ml Syringe) 50 meq IV PUSH ONCE STA Stop: 10/02/25 16:05 Last Admin: 10/02/25 16:52 Dose: 50 meq Documented By: SEAN Notes 10/02/25 16:41 Nurse Note by Fauzia Magallanes pharmacy called for calcium gluconate Initialized on 10/02/25 16:41 - END OF NOTE Interventions/Assessments IV / Saline Lock, Insert Start: 10/02/25 09:37 Freq: Status: Active Protocol: Document 10/02/25 16:48 KNW (Rec: 10/02/25 16:48 KNW [id number]) IV Assessment Peripheral Access Right Forearm IV Catheter Access Initiated IV Insertion Date 10/02/25 IV Insertion Time 16:48 Catheter Gauge 20 IV Insertion 1 Attempts Ultrasound Used for No Placement IV Site Assessment WNL IV Care and WNL Maintenance PA: Cardiovascular Assessment Start: 10/02/25 09:37 Freq: Status: Active Protocol: Document 10/02/25 14:38 KNW (Rec: 10/02/25 14:39 KNW [id number]) Cardiovascular Assessment Cardiovascular Dyspnea Symptoms Skin Description Warm Heart Sounds Normal Jugular Vein None Distention PA: Respiratory Assessment Start: 10/02/25 09:37 Freq: Status: Active Protocol: Document 10/02/25 14:38 KNW (Rec: 10/02/25 14:39 KNW [id number]) Respiratory Assessment Symptoms Shortness of Breath at Rest Effort Short of Breath Pattern Regular Depth Normal Chest Expansion Symmetrical Cough Description Productive Cough Frequency Intermittent Sputum Amount Small Sputum Color Green Oxygen Delivery Oxygen Delivery Room Air Pulse Oximetry (90- 100 100) Last Vital Signs Temperature 97.9 F 10/02/25 10:08 Pulse Rate 85 10/02/25 16:49 Respiratory Rate 15 10/02/25 16:49 Pulse Oximetry 100 10/02/25 16:49 Blood Pressure 173/99 H 10/02/25 16:49 Blood Pressure Mean 122 10/02/25 16:49 Blood Pressure Position Sitting 10/02/25 14:37 Oxygen Delivery Room Air 10/02/25 14:38 Weight 88.8 kg 10/02/25 14:37 Last Result - Abnormals Only RBC 3.64 M/mm3 (4.2-5.4) L 10/02/25 14:10 Hgb 10.9 g/dL (12.0-15.0) L D 10/02/25 14:10 Hct 33.5 % (37.0-47.0) L 10/02/25 14:10 RDW 15.6 % (11.5-14.5) H 10/02/25 14:10 Eos % (Auto) 6.8 % (0-4.4) H 10/02/25 14:10 Eos # (Auto) 0.5 K/mm3 (0-0.3) H 10/02/25 14:10 Sodium 134 mmol/L (137-145) L 10/02/25 14:10 Potassium 5.6 mmol/L (3.4-5.0) H 10/02/25 14:10 Chloride 92 mmol/L (98-107) L 10/02/25 14:10 Anion Gap 16 mmol/L (4-12) H 10/02/25 14:10 BUN 70 mg/dL (7-17) H 10/02/25 14:10 Creatinine 10.44 mg/dL (0.7-1.0) H 10/02/25 14:10 Estimated GFR 4 (59-) L 10/02/25 14:10 Glucose 213 mg/dL (65-110) H 10/02/25 14:10 POC Capillary Glucose 256 mg/dl (65-105) H 10/02/25 16:45 Calcium 6.8 mg/dL (8.4-10.2) L 10/02/25 14:10 Alkaline Phosphatase 138 U/L (38-126) H 10/02/25 14:10 NT-Pro-B Natriuret Pep 03974 pg/mL (19.9-100) H 10/02/25 14:10 Total Protein 8.7 g/dL (6.3-8.2) H 10/02/25 14:10 Most Recent Suicide Severity Rating Suicide Severity Rating NO RISK INDICATED 10/02/25 14:37
--- NOTE | 2025-10-02 18:47 | PC.NURSE ---
This patient, Celeste Waters, was admitted to IMU Room 210-01. Patient/family oriented to hospital policies and general routines including ID bracelet, bed and alarms, visiting hours, pain management, procedures, bathroom and other care routines, personal items, smoking policy, room service/diet, and visiting hours. Information on how to activate the Rapid Response Team has been discussed. Patient/Family are encouraged to report perceived risks to care and to ask questions if they do not understand what they are told or what they should do.
[2025-10-02] MEDS: AZITHROMYCIN IV 500 MG in SODIUM CHLORIDE 0.9% IV 250 ML IVPB (18:49)
[2025-10-02 19:05] LABS: Anion Gap 18 mmol/L (4-12); Blood Urea Nitrogen 72 mg/dL (7-17); Calcium 7.1 mg/dL (8.4-10.2); Carbon Dioxide 26 mmol/L (22-30); Chloride 92 mmol/L (98-107); Estimated CRCL calculation 8 ml/min; Estimated Glomerular Filt Rate 4; Glucose 159 mg/dL (65-110); Potassium 4.5 mmol/L (3.4-5.0); Sodium 136 mmol/L (137-145)
[2025-10-02 20:10] LABS: MRSA (PCR) NOT DETECTED (NOT DETECTE)
--- NOTE | 2025-10-02 20:31 | PM.IMHP ---
H&P: HPI History of Present Illness Date/Time: 10/02/25 20:31 Chief Complaint: Shortness of breath Narrative: This is a 40-year-old female patient who has a history of end-stage renal disease with dialysis on Thursday, diabetes, and hypertension. The patient stated that she has been feeling ill for 1 week. His symptoms include chest congestion, shortness of breath cough, and fatigue. The patient stated that she did not go to dialysis today because she did not feel well. However she stated she did go last Thursday. Her potassium was noted to be 5.6 which was treated with IV calcium, insulin, albuterol, and sodium bicarb. Repeat potassium was 4.5. Her anion gap the was 16 now is 18. BUN 70 creatinine 10.44. [place]ucose [place] 213[place] [address] which is lower from previous values. Chest x-ray was read as right hilar bronchitis and or developing airspace disease. Patient was started on a Zithromax and Rocephin. Nephrology has been consulted. The patient has been admitted to observation status on the date of service of 10/02/2025 Review of Systems Review of Systems: All systems reviewed & are unremarkable except as noted in HPI and below Constitutional: Constitutional: Reports as per HPI and Reports no additional constitutional complaints Eyes: Eyes: Reports as per HPI and Reports no additional eye complaints ENT: Reports system reviewed and no additional complaints, except as documented and Reports Normal hearing present Cardiovascular: Cardiovascular: Reports no additional cardiovascular complaints Respiratory: Respiratory: Reports no additional respiratory complaints and Reports no additional respiratory complaints Gastrointestinal: Gastrointestinal: Reports as per HPI and Reports no additional gastrointestinal complaints Musculoskeletal: Musculoskeletal: Reports no additional musculoskeletal complaints Integumentary/Breasts: Skin/Breast: Reports system reviewed and no additional complaints, except as docu and Reports as per HPI Neurologic: Reports system reviewed and no additional complaints, except as documented, Reports as per HPI and Reports Normal hearing present Psychiatric: Psychiatric: Reports no additional psychiatric complaints and Reports as per HPI Endocrine: Endocrine: Reports no additional endocrine complaints Hematologic/Lymphatic: Hematologic/Lymphatic: Reports no additional hematologic/lymphatic complaints Allergic/Immunologic: Allergic/Immunologic: Reports no additional allergic/immunologic complaints [facility] Past Medical History Medical History (Updated 10/02/25 @ 23:49 by Karly Valentin, LISBET) Retinopathy Retinal detachment Biliary dyskinesia Chronic cholecystitis Cholelithiasis Encounter for surgical aftercare following surgery on the digestive system Hyperkalemia Hyperlipidemia DM2 (diabetes mellitus, type 2) Numbness of right hand Epistaxis Melena Acute on chronic anemia Gastroparesis CHF (congestive heart failure) Anemia Reactive airway disease PUD (peptic ulcer disease) Peripheral neuropathy GERD (gastroesophageal reflux disease) Hypertension Cannabis use disorder Type 1 diabetes Stated type 2 diabetes. Arteriovenous fistula for hemodialysis in place, primary End stage renal disease on dialysis Surgical History Surgical History (Updated 10/02/25 @ 23:49 by Karly Valentin APRN) H/O eye surgery Bilateral retinopathy H/O cataract extraction Bilateral eyes Hx laparoscopic cholecystectomy lap robina, Da Robin assisted 04/05/24 S/P arteriovenous (AV) fistula creation History of appendectomy Family History Family History Father Diabetes mellitus Mother Diabetes mellitus Sibling Diabetes mellitus Gastric bypass status for obesity Social History Social History (Updated 10/02/25 @ 23:49 by Karly Valentin APRN) Social History: She stated that she is single and disabled. She has no children. Code status: Full code. Smoking packs per day: 1 Smoking cigarettes per day: 20.0 Years smoked: 24 Smoking pack-years: 24.00 Smoking status: Light tobacco smoker Tobacco type: cigarettes Alcohol intake: never Drinks per week: 0 Substance use: current Substance use type: marijuana Other substance usage details: not very often Last use: February Do You Feel Safe in your Home?: Yes Lack of Transportation: No Lack of Food: Never True Current Housing: I Have Housing Concerned About Future Housing: No Difficulty Paying Gas/Electric Bills: No Difficulty Paying for Meds: No Currently Unemployed: No Education: High School Diploma/GED Difficulty w/ Childcare or Family Care: No Living arrangements: with family Spiritual care concerns: No Meds Home Medications and Allergies Home Medications ?Medication ?Instructions ?Recorded ?Confirmed ?Type amlodipine 10 mg tablet 10 mg PO DAILY 03/21/24 10/02/25 History atorvastatin 10 mg tablet 10 mg PO DAILY 03/21/24 10/02/25 History carvedilol 25 mg tablet 25 mg PO BID 03/21/24 10/02/25 History gabapentin 400 mg capsule 400 mg PO TID 03/21/24 10/02/25 History losartan 100 mg tablet 100 mg PO DAILY 03/21/24 10/02/25 History calcium acetate(phosphat bind) 667 1,334 mg PO TID 03/22/24 10/02/25 History mg capsule ferrous sulfate 325 mg (65 mg 325 mg PO DAILY #10 tabs 03/22/24 10/02/25 Rx iron) tablet insulin aspart U-100 100 unit/mL 3 unit (0.03 mL) subcut TIDWM #15 03/22/24 10/02/25 Rx (3 mL) subcutaneous pen (Novolog mL FlexPen U-100 Insulin aspart) metoclopramide HCl 10 mg tablet 10 mg PO Q6H PRN nausea and 09/20/24 10/02/25 Rx (Reglan) vomiting #20 tabs albuterol sulfate 90 mcg/actuation 2 puff inhalation DAILY PRN 05/03/25 10/02/25 History aerosol inhaler shortness of breath or wheezing hydralazine 25 mg tablet 25 mg PO DAILY 05/03/25 10/02/25 History insulin degludec 100 unit/mL (3 20 unit subcut QPM 05/03/25 10/02/25 History mL) subcutaneous pen (Tresiba FlexTouch U-100 insulin) pantoprazole 40 mg tablet,delayed 40 mg PO BID #60 tabs 05/05/25 10/02/25 Rx release trazodone 100 mg tablet See Rx Instructions .Route 06/13/25 10/02/25 Rx .COMPLEX #90 tabs Allergies Allergy/AdvReac Type Severity Reaction Status Date / Time No Known Allergies Allergy Verified 10/02/25 18:28 Vital Signs Vital Signs - 24 hr 10/02/25 10:08 10/02/25 14:21 10/02/25 14:37 Temperature 97.9 F Pulse Rate 87 84 84 Respiratory Rate 97 H 12 17 Blood Pressure 194/102 H 198/105 H 178/91 H Pulse Oximetry 97 97 Oxygen Delivery Room Air Room Air 10/02/25 14:38 10/02/25 14:39 10/02/25 14:46 Temperature Pulse Rate 87 86 Respiratory Rate 35 H 18 Blood Pressure 178/91 H 173/95 H Pulse Oximetry 100 100 100 Oxygen Delivery Room Air 10/02/25 16:49 10/02/25 17:55 10/02/25 18:00 Temperature 98.4 F Pulse Rate 85 98 105 H Respiratory Rate 15 16 Blood Pressure 173/99 H 162/78 H Pulse Oximetry 100 95 Oxygen Delivery Exam Const: General: cooperative, comfortable, no acute distress, well developed, awake, Physically active, ill appearing, average body habitus and well nourished Nutritional Appearance: average body habitus and well nourished Orientation/consciousness: oriented to person, oriented to place, oriented to time and patient oriented x3 Limitations: no limitations HENMT: Head: normal to inspection, No palpable skull fracture present and normocephalic Eyes: General: appearance normal, both eyes and all related structures Alignment and Position: alignment normal Periorbital: periorbital findings normal Eyelids: eyelids normal Neck: Neck: normal visual inspection and full ROM Chest: Chest palpation & inspection: normal inspection of the chest Resp: Effort & Inspection: normal respiratory effort Auscultation: wheezes right lower Cardio: Palpation: normal PMI Rate: regular rate Rhythm: regular rhythm Heart sounds: S1 normal heart sound present and S2 normal heart sound present Peripheral pulses: Peripheral pulses 2+ throughout GI: Inspection: normal to inspection Percussion: Yes normal to percussion Auscultation: normal bowel sounds Rectal Exam: deferred Skin: General skin exam: normal color Lesions: no lesions Rashes: no rashes Trauma: no lacerations or abrasions Wounds: no wounds Hair: normal Nails: normal Other: Av fistula to left forearm positive bruit and thrill. Neuro: General: oriented to person, oriented to place, oriented to time and patient oriented x3 Cranial nerves: Yes Normal hearing present Cognition (Neuro): normal cognition Speech: normal speech Motor exam (neuro): 5/5 motor strength present throughout Sensory Exam: normal sensation Extrem: General: normal to inspection Right upper extremity: normal to inspection and shoulder/upper arm Left upper extremity: normal to inspection and shoulder/upper arm Right lower extremity: normal to inspection Left lower extremity: normal to inspection Psych: Appearance: grossly normal Mental Status: mental status grossly normal Speech and movement: Normal speech and movement present Affect: normal affect Attitude: cooperative Thought process: Normal thought process present Thought content: Yes Normal thought content present Insight: Good insight present (Psych) Judgement: Good judgement present (Psych) H&P: Results Labs Labs: Short CBC 10/02/25 Range/Units 14:10 WBC 7.5 (4.5-10.0) K/mm3 Hgb 10.9 L D (12.0-15.0) g/dL Hct 33.5 L (37.0-47.0) % Plt Count 207 (150-375) k/mm3 BMP 10/02/25 10/02/25 14:10 18:24 Sodium 134 L 136 L Potassium 5.6 H 4.5 Chloride 92 L 92 L Carbon Dioxide 26 26 BUN 70 H 72 H Creatinine 10.44 H 10.31 H Glucose 213 H 159 H Calcium 6.8 L 7.1 L Liver Function 10/02/25 Range/Units 14:10 Total Bilirubin 0.7 (0.2-1.3) mg/dL AST 28 (14-36) U/L ALT 16 (6-35) U/L Alkaline Phosphatase 138 H (38-126) U/L Albumin 4.4 (3.5-5.1) g/dL ECG Interpretation: Test Date: 2025-10-02 14:19:48 Measurements Intervals [place] Rate: 81 P: 29 [place]: 196 QRS: -50 QRSD: 86 T: 47 QT: 432 QTc: 502 Interpretive Statements SINUS RHYTHM POSSIBLE LEFT ATRIAL ENLARGEMENT [-0.1mV P-WAVE IN V1/V2] LEFT ANTERIOR FASCICULAR BLOCK [QRS AXIS <= -45, QR IN I, RS IN II] POSSIBLE ANTERIOR MYOCARDIAL INFARCTION , OF INDETERMINATE AGE [30 ms Q WAVE IN V3/V4, OR R < 0.2 mV IN V4] Compared to ECG 05/03/2025 11:57:07 Left anterior fascicular block now present Incomplete right bundle-branch block no longer present Myocardial infarct finding still present Electronically Signed On 10-02-2025 15:22:17 [employer] by Wing Dumas M.D. Imaging Chest x-ray: Radiologist's impression: ITS Impressions Chest X-Ray 10/02/25 14:37 IMPRESSION: 1. Right hilar bronchitis and/or developing airspace disease. Assessment and Plan Assessment and plan (1) Pneumonia: Code(s): J18.9 - Pneumonia, unspecified organism Status: Acute Assessment and Plan: -the patient was started on a Zithromax and Rocephin. -blood and sputum cultures are pending. -nebulizer treatments initiated -wean off of antibiotics when able. Chest x-ray read as right hilar bronchitis and are developing airspace disease. -this could possibly also be pulmonary edema. -DuoNebs. (2) Hyperkalemia: Code(s): E87.5 - Hyperkalemia Status: Acute Assessment and Plan: -patient's potassium level is currently normal after she was treated in the emergency room. -the patient had missed dialysis today. -daily BMP (3) ESRD (end stage renal disease): Code(s): N18.6 - End stage renal disease Status: Acute Assessment and Plan: -the patient has dialysis on Thursday. The patient stated that she missed today. -continue to monitor electrolytes. -nephrology has been consulted. (4) Acute on chronic anemia: Code(s): D64.9 - Anemia, unspecified Status: Acute Assessment and Plan: -secondary to chronic renal disease. -patient's hemoglobin is 10.9 and hemoglobin of 33.5 which has improved from previous values. (5) Peripheral neuropathy: Code(s): G62.9 - Polyneuropathy, unspecified Status: Acute Assessment and Plan: -continue with gabapentin (6) DM2 (diabetes mellitus, type 2): Code(s): E11.9 - Type 2 diabetes mellitus without complications Status: Acute Assessment and Plan: -Accu-Cheks AC and HS sliding scale insulin. -hemoglobin A1c if not performed in the last 6 months. (7) Hyperlipidemia: Code(s): E78.5 - Hyperlipidemia, unspecified Status: Acute Assessment and Plan: -continue with atorvastatin and monitor liver enzymes. (8) Hypertension: Code(s): I10 - Essential (primary) hypertension Status: Chronic Assessment and Plan: -continue with hydralazine, losartan, and amlodipine if blood pressure allows. -current blood pressure 157/70. Quality VTE Prophylaxis VTE prophylaxis: mechanical ordered
[2025-10-03] VITALS (44 sets, daily range): BP systolic 153–190; BP diastolic 70–110; PULSE 75–92; RESP 16–20; TEMP 36.3–37.5; O2SAT 93–100
[2025-10-03 00:29] LABS: Hemoglobin A1C 9.0 % (<5.7)
[2025-10-03] MEDS: GABAPENTIN 400 MG CAPSULE PO ×4 (00:53→21:03)
[2025-10-03] MEDS: INSULIN GLARGINE (*BKC) 100 UNITS/ML 16 UNITS SUB-Q ×2 (00:53→21:10)
[2025-10-03] MEDS: IPRATROPIUM 0.5 MG/ALBUTEROL SULFATE 2.5 MG (BASE) AMPUL.NEB 3 ML INHALATION ×4 (02:03→19:50)
[2025-10-03 04:25] LABS: Hematocrit 30.7 % (37.0-47.0); Hemoglobin 9.7 g/dL (12.0-15.0); Mean Corpuscular HGB Conc 31.6 g/dl (32-36); Mean Corpuscular Hemoglobin 29.6 pg (26-34); Mean Corpuscular Volume 93.6 fl (80-100); Platelet Count Result 196 k/mm3 (150-375); Red Blood Count 3.28 M/mm3 (4.2-5.4); White Blood Count 9.1 K/mm3 (4.5-10.0)
[2025-10-03 04:41] LABS: Anion Gap 16 mmol/L (4-12); Blood Urea Nitrogen 76 mg/dL (7-17); Calcium 6.9 mg/dL (8.4-10.2); Carbon Dioxide 27 mmol/L (22-30); Chloride 92 mmol/L (98-107); Estimated CRCL calculation 7 ml/min; Estimated Glomerular Filt Rate 4; Glucose 182 mg/dL (65-110); Sodium 135 mmol/L (137-145)
[2025-10-03 04:49] LABS: Potassium 5.2 mmol/L (3.4-5.0)
[2025-10-03 05:17] LABS: Hepatitis B Surface Antigen Negative (Negative)
[2025-10-03] MEDS: CALCIUM ACETATE 667 MG TABLET 1334 MG PO ×3 (05:17→21:02)
[2025-10-03 05:37] LABS: Hepatitis B Surface Anti Res Positive
[2025-10-03] MEDS: PANTOPRAZOLE 40 MG TABLET PO ×2 (07:51→21:02)
[2025-10-03] MEDS: ATORVASTATIN 10 MG TABLET PO (07:51)
[2025-10-03] MEDS: LOSARTAN POTASSIUM 100 MG TABLET PO (07:51)
[2025-10-03] MEDS: FERROUS SULFATE 325 MG TABLET PO (07:51)
[2025-10-03] MEDS: INSULIN ASPART (*BKC) 100 UNITS/ML SUB-Q ×4 (07:55→16:54)
[2025-10-03] MEDS: LIDOCAINE/PRILOCAINE CREAM 2.5-2.5% TUBE 1 EACH TOPICAL (08:06)
--- NOTE | 2025-10-03 09:03 | P.PNIM_ITS ---
Progress Note: A&P Assessment and Plan (1) Pneumonia: Code(s): J18.9 - Pneumonia, unspecified organism Status: Acute Assessment and Plan: - CXR with R hilar bronchitis/developing airspace disease (personally reviewed) - symptomatic with cough, fatigue - afebrile, no leukocytosis - quad viral screen negative - continue Rocephin/azithromycin - blood and sputum cultures are pending (2) Hyperkalemia: Code(s): E87.5 - Hyperkalemia Status: Acute Assessment and Plan: - K+ 5.2 - management with dialysis -daily BMP (3) ESRD (end stage renal disease): Code(s): N18.6 - End stage renal disease Status: Acute Assessment and Plan: -on dialysis MWF. Missed dialysis 10/02 due to not feeling well -continue to monitor electrolytes. -nephrology following - dialyzed 10/03 (4) Acute on chronic anemia: Code(s): D64.9 - Anemia, unspecified Status: Acute Assessment and Plan: -secondary to chronic renal disease. - Hgb 9.7, improved from prior (5) Peripheral neuropathy: Code(s): G62.9 - Polyneuropathy, unspecified Status: Acute Assessment and Plan: -continue gabapentin (6) DM2 (diabetes mellitus, type 2): Code(s): E11.9 - Type 2 diabetes mellitus without complications Status: Acute Assessment and Plan: - hemoglobin A1c 9.0 - continue Lantus 16 u, Novolog 3u with meals, low dose SSI. Titrate PRN. - continue low dose SSI - accuchecks qACHS - hypoglycemia protocol - reports intermittent compliance with insulin at home - medical educator consulted (7) Hyperlipidemia: Code(s): E78.5 - Hyperlipidemia, unspecified Status: Acute Assessment and Plan: -continue statin (8) Hypertension: Code(s): I10 - Essential (primary) hypertension Status: Chronic Assessment and Plan: - BP 176/80 this AM -continue hydralazine, losartan, and amlodipine - patient reports she is out of her HTN meds. Has PCP appointment next week. She will need refills on discharge. Plan DVT prophylaxis: heparin Code status: full code Dispo: likely home tomorrow if continues to improve Subjective Date/time seen: 10/03/25 09:03 Interval history: 40-year-old female patient who has a history of end-stage renal disease with dialysis on Thursday, diabetes, and hypertension who presented with feeling ill for 1 week, missed dialysis. Patient seen and examined at bedside after dialysis. Overall feeling somewhat better. Still fatigued with productive cough. Patient admits to poor compliance with her home diabetes regimen. Also states she ran out of her blood pressure medicines at home. Does have an appointment with her PCP sometime next week. Review of Systems Review of Systems: All systems reviewed & are unremarkable except as noted in HPI and below Exam Narrative: General: NAD Eyes: EOMI ENT: neck supple Cardiovascular: Regular rate and rhythm Respiratory: Clear to auscultation, respirations even and unlabored on RA Gastrointestinal: Soft, non tender Genitourinary: no suprapubic tenderness Musculoskeletal: No edema Skin: warm, dry Neuro: Alert. Psych: Mood appropriate Objective Data Vital Signs Vital Signs: Vital Signs - 24 hr 10/02/25 10:08 10/02/25 14:21 10/02/25 14:37 Temperature 97.9 F Pulse Rate 87 84 84 Respiratory Rate 97 H 12 17 Blood Pressure 194/102 H 198/105 H 178/91 H Pulse Oximetry 97 97 Oxygen Delivery Room Air Room Air 10/02/25 14:38 10/02/25 14:39 10/02/25 14:46 Temperature Pulse Rate 87 86 Respiratory Rate 35 H 18 Blood Pressure 178/91 H 173/95 H Pulse Oximetry 100 100 100 Oxygen Delivery Room Air 10/02/25 16:49 10/02/25 17:55 10/02/25 18:00 Temperature 98.4 F Pulse Rate 85 98 105 H Respiratory Rate 15 16 Blood Pressure 173/99 H 162/78 H Pulse Oximetry 100 95 Oxygen Delivery 10/02/25 20:00 10/02/25 20:00 10/02/25 22:00 Temperature 99.3 F Pulse Rate 101 H 106 H 90 Respiratory Rate 16 Blood Pressure 166/85 H Pulse Oximetry 100 Oxygen Delivery 10/03/25 00:00 10/03/25 00:00 10/03/25 00:53 Temperature 98.6 F Pulse Rate 89 87 85 Respiratory Rate 16 Blood Pressure 157/70 H Pulse Oximetry 95 Oxygen Delivery 10/03/25 02:00 10/03/25 02:04 10/03/25 02:07 Temperature Pulse Rate 88 83 83 Respiratory Rate 16 16 Blood Pressure Pulse Oximetry 97 Oxygen Delivery Room Air 10/03/25 02:13 10/03/25 04:00 10/03/25 04:00 Temperature 98.2 F Pulse Rate 77 79 84 Respiratory Rate 16 18 Blood Pressure 185/94 H Pulse Oximetry 100 Oxygen Delivery 10/03/25 06:00 10/03/25 07:35 10/03/25 07:51 Temperature 98.6 F Pulse Rate 83 79 84 Respiratory Rate 16 Blood Pressure 176/80 H Pulse Oximetry 93 Oxygen Delivery Intake/Output Intake/Output: Intake & Output 09/30/25 10/01/25 10/02/25 10/03/25 23:59 23:59 23:59 23:59 Intake Total 100 640 Output Total 0 Balance 100 640 Meds/Results Medications: Active Medications Generic Name Dose Route Start Last Admin Trade Name Freq PRN Reason Stop Dose Admin Albuterol/Ipratropium 3 ml 10/03/25 02:00 10/03/25 08:04 Ipratropium 0.5 Mg/Albuterol Sulfate 2.5 Mg (Base) Ampul.Neb 3 Ml INHALATION 3 ml Q6HRT KAREEN Administration Amlodipine Besylate 10 mg 10/03/25 09:00 10/03/25 07:51 Amlodipine Besylate 10 Mg Tablet PO 10 mg DAILY KAREEN Administration Atorvastatin Calcium 10 mg 10/03/25 09:00 10/03/25 07:51 Atorvastatin 10 Mg Tablet PO 10 mg DAILY KAREEN Administration Calcium Acetate 1,334 mg 10/03/25 06:00 10/03/25 05:17 Calcium Acetate 667 Mg Tablet PO 1,334 mg Q8HR KAREEN Administration Carvedilol 25 mg 10/02/25 23:45 10/03/25 07:51 Carvedilol 25 Mg Tablet PO 25 mg Q12HR KAREEN Administration Dextrose 12.5 gm 10/02/25 23:32 Dextrose 50% 25 Gm/50 Ml Syringe IV PUSH PRN PRN Hypoglycemia Protocol Epoetin Tomi-epbx 10,000 units 10/03/25 18:45 Epoetin Tomi-Epbx 10,000 Units/Ml Vial IV PUSH 10/03/25 18:46 ONCE ONE Ferrous Sulfate 325 mg 10/03/25 09:00 10/03/25 07:51 Ferrous Sulfate 325 Mg Tablet PO 325 mg DAILY KAREEN Administration Gabapentin 400 mg 10/02/25 23:45 10/03/25 05:17 Gabapentin 400 Mg Capsule PO 400 mg Q8HR KAREEN Administration Glucagon 1 mg 10/02/25 23:32 Glucagon For Inj 1 Mg Vial IM PRN PRN Hypoglycemia Protocol Glucose 15 gm 10/02/25 23:32 Glucose Oral Gel 15 Gm Of Glucse In 37.5 Gm Tube PO PRN PRN Hypoglycemia Protocol Heparin Sodium (Porcine) 600 units 10/03/25 07:25 Heparin Sodium 1,000 Units/Ml Vial IV PUSH 10/03/25 09:26 Q1H KAREEN Hydralazine HCl 25 mg 10/03/25 09:00 10/03/25 07:51 Hydralazine Hcl 25 Mg Tablet PO 25 mg DAILY KAREEN Administration Ceftriaxone Sodium 1 gm/ 50 mls @ 100 mls/hr 10/03/25 17:00 Sodium Chloride IVPB Q24H KAREEN Azithromycin 500 mg/ Sodium 250 mls @ 250 mls/hr 10/03/25 19:00 Chloride IVPB 10/06/25 19:59 Q24H KAREEN Albumin Human 50 mls @ 999 mls/hr 10/02/25 16:30 Albutein IVPB 11/01/25 16:29 Q10M PRN HYPOTENSION Dextrose 1,000 mls @ 100 mls/hr 10/02/25 23:32 Dextrose 5% 1,000 Ml IVPB PRN PRN Hypoglycemia Protocol Insulin Aspart 2 - 5 units 10/03/25 08:00 10/03/25 07:54 Insulin Aspart (*Bkc) 100 Units/Ml SUB-Q Not Given TIDWM [facility] Protocol Insulin Aspart 3 units 10/03/25 08:00 10/03/25 07:55 Insulin Aspart (*Bkc) 100 Units/Ml SUB-Q 3 units TIDWM KAREEN Administration Insulin Glargine 16 units 10/02/25 23:45 10/03/25 00:53 Insulin Glargine (*Bkc) 100 Units/Ml SUB-Q 16 units QHS KAREEN Administration Lidocaine/Prilocaine 1 each 10/02/25 16:36 10/03/25 08:06 Lidocaine/Prilocaine Cream 2.5-2.5% Tube TOPICAL 1 each WITH DIALYSIS PRN Administration for dialysis Protocol Losartan Potassium 100 mg 10/03/25 09:00 10/03/25 07:51 Losartan Potassium 100 Mg Tablet PO 100 mg DAILY KAREEN Administration Metoclopramide HCl 10 mg 10/02/25 23:32 Metoclopramide Hcl 10 Mg Tablet PO Q6H PRN Nausea And Vomiting Pantoprazole Sodium 40 mg 10/03/25 09:00 10/03/25 07:51 Pantoprazole 40 Mg Tablet PO 40 mg Q12HR KAREEN Administration Trazodone HCl 100 mg 10/02/25 23:35 Trazodone Hcl 50 Mg Tablet BY MOUTH QHS PRN Insomnia Radiology Results: ITS Impressions Chest X-Ray 10/02/25 14:37 IMPRESSION: 1. Right hilar bronchitis and/or developing airspace disease. Labs Labs: Laboratory Results - last 24 hr 10/02/25 10/02/25 10/02/25 14:10 16:45 17:41 WBC 7.5 RBC 3.64 L Hgb 10.9 L D Hct 33.5 L MCV 92.0 MCH 29.9 MCHC 32.5 RDW 15.6 H Plt Count 207 MPV 9.9 Immature Gran % (Auto) 0.4 Neut % (Auto) 68.1 Lymph % (Auto) 19.5 [place] % (Auto) 4.4 Eos % (Auto) 6.8 H Baso % (Auto) 0.8 Lymph # (Auto) 1.47 [place] # (Auto) 0.3 Eos # (Auto) 0.5 H Baso # (Auto) 0.1 Abs Immat Gran (auto) 0.03 Absolute Neuts (auto) 5.1 Absolute Nucleated RBC 0.000 Nucleated RBC % 0.0 PT 14.1 INR 1.1 APTT 30.6 Sodium 134 L Potassium 5.6 H Chloride 92 L Carbon Dioxide 26 Anion Gap 16 H BUN 70 H Creatinine 10.44 H Estim Creat Clear Calc 8 Estimated GFR 4 L Glucose 213 H POC Capillary Glucose 256 H 179 H Hemoglobin A1c 9.0 H Calcium 6.8 L Total Bilirubin 0.7 AST 28 ALT 16 Alkaline Phosphatase 138 H NT-Pro-B Natriuret Pep 63472 H Total Protein 8.7 H Albumin 4.4 Nasal MRSA (PCR) Hep Bs Antigen Hep Bs Antibody Influenza A (RT-PCR) Negative Influenza B (RT-PCR) Negative RSV (RT-PCR) Negative SARS-CoV-2 RNA (RT-PCR) Negative 10/02/25 10/02/25 10/02/25 18:24 18:43 20:21 WBC RBC Hgb Hct MCV MCH MCHC RDW Plt Count MPV Immature Gran % (Auto) Neut % (Auto) Lymph % (Auto) [place] % (Auto) Eos % (Auto) Baso % (Auto) Lymph # (Auto) [place] # (Auto) Eos # (Auto) Baso # (Auto) Abs Immat Gran (auto) Absolute Neuts (auto) Absolute Nucleated RBC Nucleated RBC % PT INR APTT Sodium 136 L Potassium 4.5 Chloride 92 L Carbon Dioxide 26 Anion Gap 18 H BUN 72 H Creatinine 10.31 H Estim Creat Clear Calc 8 Estimated GFR 4 L Glucose 159 H POC Capillary Glucose 325 H Hemoglobin A1c Calcium 7.1 L Total Bilirubin AST ALT Alkaline Phosphatase NT-Pro-B Natriuret Pep Total Protein Albumin Nasal MRSA (PCR) Not detected Hep Bs Antigen Hep Bs Antibody Influenza A (RT-PCR) Influenza B (RT-PCR) RSV (RT-PCR) SARS-CoV-2 RNA (RT-PCR) 10/03/25 10/03/25 03:32 07:11 WBC 9.1 RBC 3.28 L Hgb 9.7 L Hct 30.7 L MCV 93.6 MCH 29.6 MCHC 31.6 L RDW 15.7 H Plt Count 196 MPV 10.5 H Immature Gran % (Auto) Neut % (Auto) Lymph % (Auto) [place] % (Auto) Eos % (Auto) Baso % (Auto) Lymph # (Auto) [place] # (Auto) Eos # (Auto) Baso # (Auto) Abs Immat Gran (auto) Absolute Neuts (auto) Absolute Nucleated RBC Nucleated RBC % PT INR APTT Sodium 135 L Potassium 5.2 H Chloride 92 L Carbon Dioxide 27 Anion Gap 16 H BUN 76 H Creatinine 10.87 H Estim Creat Clear Calc 7 Estimated GFR 4 L Glucose 182 H POC Capillary Glucose 189 H Hemoglobin A1c Calcium 6.9 L Total Bilirubin AST ALT Alkaline Phosphatase NT-Pro-B Natriuret Pep Total Protein Albumin Nasal MRSA (PCR) Hep Bs Antigen Negative Hep Bs Antibody Positive Influenza A (RT-PCR) Influenza B (RT-PCR) RSV (RT-PCR) SARS-CoV-2 RNA (RT-PCR) Quality VTE Prophylaxis VTE prophylaxis: mechanical ordered and pharmacologic ordered
--- NOTE | 2025-10-03 09:40 | P.CONNP_ITS ---
Assessment and Plan Assessment and plan (1) End stage renal disease: Code(s): N18.6 - End stage renal disease Status: Chronic Assessment and Plan: * HD today * likely plan HD tomorrow to resume outpatient schedule of Thu/Thu/Thursday * follow electrolytes, volume status, and clearance (2) Hyperkalemia: Code(s): E87.5 - Hyperkalemia Status: Acute Assessment and Plan: * likely due to missed dialysis treatment on Thursday * s/p medical management * HD today * follow trend of K+ (3) Pneumonia: Code(s): J18.9 - Pneumonia, unspecified organism Status: Acute Assessment and Plan: * as suspected by admission symptoms and findings: * shortness of breath * chest congestion and cough * CXR with right hilar bronchitis and are developing airspace disease - component of fluid present as well(?) * however, no fever or elevated WBC * viral testing for influenza/RSV/COVID negative * follow culture data * on antibiotics * follow respiratory status (4) Hypocalcemia: Code(s): E83.51 - Hypocalcemia Status: Acute Assessment and Plan: * noted on outpatient labs as well * adjust dialysis to compensate * started on calcium supplement as an outpatient * may need to restart depending on trend while inpatient (5) Anemia: Code(s): D64.9 - Anemia, unspecified Status: Chronic Assessment and Plan: * due to ESRD and possibly worse by acute illness * Epogen with HD * follow trend of H/H (6) Hypertension: Code(s): I10 - Essential (primary) hypertension Status: Chronic Assessment and Plan: * quite erratic at baseline * restart home medicatins * may require PRN medications as well * follow trend of hemodyanamics (7) Diabetes: Code(s): E11.9 - Type 2 diabetes mellitus without complications Status: Chronic Assessment and Plan: * follow accu-cheks * glycemic control per hospitalists I will continue follow the patient with you while she remains hospitalized and make further recommendations as deemed necessary. Thank you for allowing me to participate in the care of this patient. L History of Present Illness Reason for Consult Consult date: 10/03/25 Reason for consult: end stage renal disease Chief Complaint Chief complaint: hyperkalemia,pneumonia,hyperglycemia History of Present Illness Narrative: The patient is a 39-year-old female past medical history as outlined below who presented to the [facility] ER with shortness of breath. The patient states that she has not been feeling very well for the past week. She started having upper respiratory tract symptoms last Thursday though. The symptoms included shortness of breath, chest congestion, rhinorrhea, cough, and fatigue. She denies any sick contacts, fevers, chills, nausea, vomiting, diarrhea, dizziness, lightheadedness, or palpitations. The symptoms continued to progress and because of them, she did not go to her scheduled dialysis treatment yesterday. As she continued to feel poorly, she presented to the emergency room for further assessment. Workup and evaluation emergency room demonstrated the patient to be hemodynamically stable if not bit hypertensive but afebrile and without evidence of hypoxia. Routine blood tests were significant for white blood cell count of 7.5, hemoglobin 10.9, platelet count 207, sodium 134, potassium 5.6, bicarb 26, BUN 70, creatinine 10.44, glucose 213, calcium 6.8, normal LFTs with the exception of an elevated alkaline phosphatase of 138, [place] [address], and an albumin 4.4. Viral testing for influenza, RSV, and COVID were negative and her chest x-ray showed right hilar bronchitis and/or developing airspace disease. Given the concern for possible early pneumonia, appropriate cultures were obtained and she was initiated on IV antibiotics. She received medical management for her mildly elevated potassium level and was subsequently admitted to the hospital for further evaluation and therapy. Since her admission, her respiratory status has remained relatively stable and repeat labs show improvement in her potassium level down to 4.5 millimoles per L. repeat labs this morning show her potassium back up to 5.2. Renal consultation was requested due to her end-stage renal disease. The patient is somewhat familiar to me as I take care of her outpatient dialysis needs. She currently dialyzes on a Thursday, Thursday, Thursday schedule at [facility] dialysis under my care. As already mentioned above, she missed her treatment yesterday due to feeling ill and associated with her presentation to the emergency room. From a dialysis perspective, she is usually compliant with her dialysis treatments although has an occasion to miss 1 or 2 treatments in a month and can sometimes have significant fluid gains in between her dialysis treatments in general. Her last full dialysis treatment was on Thursday, Currently, at the time my visit, she is tolerating her dialysis treatment without issue (seen on HD at 9:30am). Review of Systems 2 Review of Systems: As per HPI. [facility] Past Medical History Medical History (Updated 10/03/25 @ 11:54 by Chelsie Basilio MD) Retinopathy Retinal detachment Hyperlipidemia DM2 (diabetes mellitus, type 2) Hyperkalemia Numbness of right hand Epistaxis Melena Acute on chronic anemia Cholelithiasis Encounter for surgical aftercare following surgery on the digestive system Biliary dyskinesia Chronic cholecystitis Gastroparesis CHF (congestive heart failure) Anemia Reactive airway disease PUD (peptic ulcer disease) Peripheral neuropathy GERD (gastroesophageal reflux disease) Hypertension Cannabis use disorder Type 1 diabetes Stated type 2 diabetes. Arteriovenous fistula for hemodialysis in place, primary End stage renal disease on dialysis Surgical History Surgical History (Updated 10/02/25 @ 23:49 by Karly Valentin APRN) H/O eye surgery Bilateral retinopathy H/O cataract extraction Bilateral eyes Hx laparoscopic cholecystectomy lap robina, Da Robin assisted 04/05/24 S/P arteriovenous (AV) fistula creation History of appendectomy Family History Family History Father Diabetes mellitus Mother Diabetes mellitus Sibling Diabetes mellitus Gastric bypass status for obesity Social History Social History (Updated 10/02/25 @ 23:49 by Karly Valentin APRN) Social History: She stated that she is single and disabled. She has no children. Code status: Full code. Smoking packs per day: 1 Smoking cigarettes per day: 20.0 Years smoked: 24 Smoking pack-years: 24.00 Smoking status: Light tobacco smoker Tobacco type: cigarettes Alcohol intake: never Drinks per week: 0 Substance use: current Substance use type: marijuana Other substance usage details: not very often Last use: February Do You Feel Safe in your Home?: Yes Lack of Transportation: No Lack of Food: Never True Current Housing: I Have Housing Concerned About Future Housing: No Difficulty Paying Gas/Electric Bills: No Difficulty Paying for Meds: No Currently Unemployed: No Education: High School Diploma/GED Difficulty w/ Childcare or Family Care: No Living arrangements: with family Spiritual care concerns: No Meds Home Medications and Allergies Home Medications ?Medication ?Instructions ?Recorded ?Confirmed ?Type amlodipine 10 mg tablet 10 mg PO DAILY 03/21/2409/16 History atorvastatin 10 mg tablet 10 mg PO DAILY 03/21/2409/16 History carvedilol 25 mg tablet 25 mg PO BID 03/21/24 History gabapentin 400 mg capsule 400 mg PO TID 03/21/2410/02 History losartan 100 mg tablet 100 mg PO DAILY 03/21/24 History calcium acetate(phosphat bind) 667 1,334 mg PO TID 06/0810/02/25 History mg capsule ferrous sulfate 325 mg (65 mg 325 mg PO DAILY #10 tabs 03/22/24 10/02/25 Rx iron) tablet insulin aspart U-100 100 unit/mL 3 unit (0.03 mL) subc ut TIDWM #15 03/22/24 10/02/25 Rx (3 mL) subcutaneous pen (Novolog mL FlexPen U-100 Insulin aspart) metoclopramide HCl 10 mg tablet 10 mg PO Q6H PRN nause a and 09/20/24 10/02/25 Rx (Reglan) vomiting #20 tabs albuterol sulfate 90 mcg/actuation 2 puff inhalation D AILY PRN 05/03/25 10/02/25 History aerosol inhaler shortness of breath or wheez ing hydralazine 25 mg tablet 25 mg PO DAILY 05/03/2509/16 History insulin degludec 100 unit/mL (3 20 unit subcut QPM 10/02/25 History mL) subcutaneous pen (Tresiba FlexTouch U-100 insulin) pantoprazole 40 mg tablet,delayed 40 mg PO BID #60 tab s 05/05/25 10/02/25 Rx release trazodone 100 mg tablet See Rx Instructions .Route 0 06/13/25 10/02/25 Rx .COMPLEX #90 tabs Allergies Allergy/AdvReac Type Severity Reaction Status Date / Time No Known Allergies Allergy Verified 10/02/25 18:28 Vital Signs Vital Signs Temp Pulse Resp BP Pulse Ox O2 Del Method FiO2 10/03/25 09:30 79 163/89 H 10/03/25 09:15 76 180/96 H 10/03/25 09:00 79 158/92 H 10/03/25 08:53 81 174/103 H 10/03/25 08:40 98.1 F 84 16 190/103 H 97 10/03/25 08:15 81 20 10/03/25 08:04 85 18 10/03/25 08:04 85 18 95 Room Air 21 10/03/25 08:00 81 10/03/25 08:00 Room Air 10/03/25 07:51 84 10/03/25 07:35 98.6 F 79 16 176/80 H 93 10/03/25 06:00 83 10/03/25 04:00 84 10/03/25 04:00 98.2 F 79 18 185/94 H 100 10/03/25 02:13 77 16 10/03/25 02:07 83 16 97 Room Air 10/03/25 02:04 83 16 10/03/25 02:00 88 10/03/25 00:53 85 10/03/25 00:00 87 10/03/25 00:00 98.6 F 89 16 157/70 H 95 10/02/25 22:00 90 10/02/25 20:00 106 H 10/02/25 20:00 99.3 F 101 H 16 166/85 H 100 10/02/25 18:00 105 H 10/02/25 17:55 98.4 F 98 16 162/78 H 95 10/02/25 16:49 85 15 173/99 H 100 10/02/25 14:46 86 18 173/95 H 100 10/02/25 14:39 87 35 H 178/91 H 100 10/02/25 14:38 100 Room Air 10/02/25 14:37 84 17 178/91 H 97 Room Air 10/02/25 14:21 84 12 198/105 H 97 Exam 2 Narrative: GENERAL APPEARANCE: well developed well nourished female in no acute distress HEENT: normocephalic, atraumatic, normal conjunctiva and sclera, nares patient NECK: no lymphadenopathy, thyromegaly, or JVD MOUTH: normal lips, teeth, and gums CARDIOVASCULAR: RRR, normal S1 and S2, no rub RESPIRATORY: coarse breath sounds at the bases ABDOMEN: soft, nontender, nondistended, positive bowel sounds present EXTREMITIES: no evidence of cyanosis, clubbing; trace edema NEUROLOGICAL: awkae and alert; CN II - XII intact bilaterally; no focal deficits noted Results Lab Results 10/03/25 03:32 10/03/25 03:32 Lab results: Most recent lab results Calcium 6.9 mg/dL (8.4-10.2) L 10/03/25 03:32
[2025-10-03] MEDS: EPOETIN ALFA-EPBX 10,000 UNITS/ML VIAL 10000 UNITS IV PUSH (11:07)
[2025-10-03] MEDS: ACETAMINOPHEN 325 MG TABLET 650 MG PO (13:21)
[2025-10-03] MEDS: cefTRIAXone 1 GM in SODIUM CHLORIDE 0.9% IV 50 ML 100 ML IVPB (16:57)
[2025-10-03] MEDS: AZITHROMYCIN IV 500 MG in SODIUM CHLORIDE 0.9% IV 250 ML IVPB (18:06)
[2025-10-03] MEDS: METOPROLOL TARTRATE INJ 5 MG/5 ML VIAL IV PUSH (21:10)
[2025-10-04] VITALS (34 sets, daily range): BP systolic 151–204; BP diastolic 78–99; PULSE 71–95; RESP 16–20; TEMP 36.4–37.2; O2SAT 96–100; BMI 30.7
[2025-10-04] MEDS: IPRATROPIUM 0.5 MG/ALBUTEROL SULFATE 2.5 MG (BASE) AMPUL.NEB 3 ML INHALATION ×3 (01:15→13:18)
[2025-10-04 04:38] LABS: Hematocrit 35.9 % (37.0-47.0); Hemoglobin 11.3 g/dL (12.0-15.0); Mean Corpuscular HGB Conc 31.5 g/dl (32-36); Mean Corpuscular Hemoglobin 30.0 pg (26-34); Mean Corpuscular Volume 95.2 fl (80-100); Platelet Count Result 232 k/mm3 (150-375); Red Blood Count 3.77 M/mm3 (4.2-5.4); White Blood Count 7.0 K/mm3 (4.5-10.0)
[2025-10-04 04:49] LABS: Anion Gap 12 mmol/L (4-12); Blood Urea Nitrogen 36 mg/dL (7-17); Calcium 8.4 mg/dL (8.4-10.2); Carbon Dioxide 28 mmol/L (22-30); Chloride 98 mmol/L (98-107); Estimated CRCL calculation 12 ml/min; Estimated Glomerular Filt Rate 7; Glucose 52 mg/dL (65-110); Potassium 4.7 mmol/L (3.4-5.0); Sodium 138 mmol/L (137-145)
[2025-10-04] MEDS: FERROUS SULFATE 325 MG TABLET PO (07:29)
[2025-10-04] MEDS: LOSARTAN POTASSIUM 100 MG TABLET PO (07:29)
[2025-10-04] MEDS: ACETAMINOPHEN 325 MG TABLET 650 MG PO (07:30)
[2025-10-04] MEDS: GABAPENTIN 400 MG CAPSULE PO ×2 (07:30→13:25)
[2025-10-04] MEDS: CALCIUM ACETATE 667 MG TABLET 1334 MG PO ×2 (07:30→13:25)
[2025-10-04] MEDS: PANTOPRAZOLE 40 MG TABLET PO (07:30)
[2025-10-04] MEDS: ATORVASTATIN 10 MG TABLET PO (07:31)
[2025-10-04] MEDS: INSULIN ASPART (*BKC) 100 UNITS/ML SUB-Q ×5 (07:48→16:53)
[2025-10-04] MEDS: LIDOCAINE/PRILOCAINE CREAM 2.5-2.5% TUBE 1 EACH TOPICAL (07:51)
--- NOTE | 2025-10-04 10:50 | P.PNNP_ITS ---
Progress Note: A&P Assessment and Plan (1) End stage renal disease: Code(s): N18.6 - End stage renal disease Status: Chronic Assessment and Plan: * HD yesterday (since missed scheduled treatment on Thursday) * HD today * continue outpatient dialysis schedule of Thu/Thu/Thursday while hospitalized * follow electrolytes, volume status, and clearance (2) Hyperkalemia: Code(s): E87.5 - Hyperkalemia Status: Acute Assessment and Plan: * resolved * likely due to missed dialysis treatment on Thursday * s/p medical management * HD yesterday and today * follow trend of K+ (3) Pneumonia: Code(s): J18.9 - Pneumonia, unspecified organism Status: Acute Assessment and Plan: * as suspected by admission symptoms and findings: * shortness of breath * chest congestion and cough * CXR with right hilar bronchitis and are developing airspace disease - component of fluid present as well(?) * however, no fever or elevated WBC * viral testing for influenza/RSV/COVID negative * follow culture data * on antibiotics * follow respiratory status (4) Hypocalcemia: Code(s): E83.51 - Hypocalcemia Status: Acute Assessment and Plan: * noted on outpatient labs as well * adjust dialysis to compensate * started on calcium supplement as an outpatient * may need to restart depending on trend while inpatient (5) Anemia: Code(s): D64.9 - Anemia, unspecified Status: Chronic Assessment and Plan: * due to ESRD and possibly worse by acute illness * Epogen with HD * follow trend of H/H (6) Hypertension: Code(s): I10 - Essential (primary) hypertension Status: Chronic Assessment and Plan: * quite erratic at baseline * restart home medicatins * may require PRN medications as well * follow trend of hemodyanamics (7) Diabetes: Code(s): E11.9 - Type 2 diabetes mellitus without complications Status: Chronic Assessment and Plan: * follow accu-cheks * glycemic control per hospitalists Will continue to follow. L Subjective Date/time seen: 10/04/25 10:50 Interval history: Follow-up for end stage renal disease on hemodialysis. Tolerating dialysis treatment at the time of my visit (seen on HD at 10:40am); tolerated dialysis treatment yesterday as well; overall, states she feel better; no apparent distress voiced; no other issues/events overnight or earlier this morning. Exam 2 Narrative: General: WD/WN female in NAD Heart: normal S1 and S2; no rub Lungs: clear anteriorly; decreased at bases Abdomen: soft, nontender nondistended, positive bowel sounds Extremities: no cyanosis or clubbing; trace edema Skin: warm and dry Objective Data Vital Signs Vital Signs: Vital Signs Temp Pulse Resp BP Pulse Ox O2 Del Method FiO2 10/04/25 10:45 78 181/96 H 10/04/25 10:30 81 176/94 H 10/04/25 10:15 74 161/78 H 10/04/25 10:00 76 10/04/25 10:00 74 171/87 H 10/04/25 09:45 74 165/92 H 10/04/25 09:30 81 194/99 H 10/04/25 09:11 80 169/95 H 10/04/25 09:05 97.9 F 80 16 183/78 H 98 10/04/25 08:44 188/83 H 10/04/25 08:00 88 10/04/25 08:00 Room Air 10/04/25 08:00 97.6 F 90 20 204/90 H 100 10/04/25 07:30 87 10/04/25 07:08 80 20 10/04/25 07:01 84 20 10/04/25 07:01 96 Room Air 21 10/04/25 06:00 74 10/04/25 04:00 72 10/04/25 04:00 Room Air 10/04/25 03:52 98.5 F 72 18 194/92 H 99 10/04/25 02:00 77 10/04/25 01:39 71 20 10/04/25 01:16 77 20 10/04/25 00:00 98.6 F 77 18 183/92 H 99 10/04/25 00:00 77 10/03/25 21:57 83 10/03/25 21:10 88 10/03/25 21:02 88 10/03/25 20:00 87 10/03/25 20:00 98.9 F 88 16 190/110 H 100 10/03/25 19:59 85 20 10/03/25 19:51 84 20 96 Room Air 21 10/03/25 19:50 84 20 10/03/25 18:00 84 10/03/25 16:00 90 10/03/25 16:00 Room Air 10/03/25 16:00 99.5 F 89 16 176/96 H 99 10/03/25 15:05 92 20 10/03/25 14:54 91 20 10/03/25 14:00 89 Intake/Output Intake/Output: Intake & Output 10/01/25 10/02/25 10/03/25 10/04/25 23:59 23:59 23:59 23:59 Intake Total 100 2200 1290 Output Total 3000 Balance 100 -800 1290 Meds/Results Medications: Active Medications Generic Name Dose Route Start Last Admin Trade Name Freq PRN Reason Stop Dose Admin Acetaminophen 650 mg 10/03/25 13:12 10/04/25 07:30 Acetaminophen 325 Mg Tablet PO 650 mg Q6H PRN Administration Pain 1-3 or Fever Albuterol/Ipratropium 3 ml 10/03/25 02:00 10/04/25 07:01 Ipratropium 0.5 Mg/Albuterol Sulfate 2.5 Mg (Base) Ampul.Neb 3 Ml INHALATION 3 ml Q6HRT KAREEN Administration Amlodipine Besylate 10 mg 10/03/25 09:00 10/04/25 07:30 Amlodipine Besylate 10 Mg Tablet PO 10 mg DAILY KAREEN Administration Atorvastatin Calcium 10 mg 10/03/25 09:00 10/04/25 07:31 Atorvastatin 10 Mg Tablet PO 10 mg DAILY KAREEN Administration Calcium Acetate 1,334 mg 10/03/25 06:00 10/04/25 07:30 Calcium Acetate 667 Mg Tablet PO 1,334 mg Q8HR KAREEN Administration Carvedilol 25 mg 10/02/25 23:45 10/04/25 07:30 Carvedilol 25 Mg Tablet PO 25 mg Q12HR KAREEN Administration Dextrose 12.5 gm 10/02/25 23:32 Dextrose 50% 25 Gm/50 Ml Syringe IV PUSH PRN PRN Hypoglycemia Protocol Ferrous Sulfate 325 mg 10/03/25 09:00 10/04/25 07:29 Ferrous Sulfate 325 Mg Tablet PO 325 mg DAILY KAREEN Administration Gabapentin 400 mg 10/02/25 23:45 10/04/25 07:30 Gabapentin 400 Mg Capsule PO 400 mg Q8HR KAREEN Administration Glucagon 1 mg 10/02/25 23:32 Glucagon For Inj 1 Mg Vial IM PRN PRN Hypoglycemia Protocol Glucose 15 gm 10/02/25 23:32 Glucose Oral Gel 15 Gm Of Glucse In 37.5 Gm Tube PO PRN PRN Hypoglycemia Protocol Heparin Sodium (Porcine) 5,000 units 10/03/25 21:00 10/04/25 07:49 Heparin Sodium 5,000 Units/Ml Vial SUB-Q 5,000 units Q12HR KAREEN Administration Hydralazine HCl 25 mg 10/03/25 09:00 10/04/25 07:30 Hydralazine Hcl 25 Mg Tablet PO 25 mg DAILY KAREEN Administration Ceftriaxone Sodium 1 gm/ 50 mls @ 100 mls/hr 10/03/25 17:00 10/03/25 17:27 Sodium Chloride IVPB Infused Q24H KAREEN Infusion Azithromycin 500 mg/ Sodium 250 mls @ 250 mls/hr 10/03/25 19:00 10/03/25 19:06 Chloride IVPB 10/06/25 19:59 Infused Q24H KAREEN Infusion Albumin Human 50 mls @ 999 mls/hr 10/02/25 16:30 Albutein IVPB 11/01/25 16:29 Q10M PRN HYPOTENSION Dextrose 1,000 mls @ 100 mls/hr 10/02/25 23:32 Dextrose 5% 1,000 Ml IVPB PRN PRN Hypoglycemia Protocol Insulin Aspart 2 - 5 units 10/03/25 08:00 10/04/25 07:48 Insulin Aspart (*Bkc) 100 Units/Ml SUB-Q 4 units TIDWM KAREEN Administration Protocol Insulin Aspart 3 units 10/03/25 08:00 10/04/25 07:48 Insulin Aspart (*Bkc) 100 Units/Ml SUB-Q 3 units TIDWM KAREEN Administration Insulin Glargine 16 units 10/02/25 23:45 10/03/25 21:10 Insulin Glargine (*Bkc) 100 Units/Ml SUB-Q 16 units QHS KAREEN Administration Lidocaine/Prilocaine 1 each 10/02/25 16:36 10/04/25 07:51 Lidocaine/Prilocaine Cream 2.5-2.5% Tube TOPICAL 1 each WITH DIALYSIS PRN Administration for dialysis Protocol Losartan Potassium 100 mg 10/03/25 09:00 10/04/25 07:29 Losartan Potassium 100 Mg Tablet PO 100 mg DAILY KAREEN Administration Metoclopramide HCl 10 mg 10/02/25 23:32 Metoclopramide Hcl 10 Mg Tablet PO Q6H PRN Nausea And Vomiting Pantoprazole Sodium 40 mg 10/03/25 09:00 10/04/25 07:30 Pantoprazole 40 Mg Tablet PO 40 mg Q12HR KAREEN Administration Trazodone HCl 100 mg 10/02/25 23:35 10/03/25 21:05 Trazodone Hcl 50 Mg Tablet BY MOUTH 100 mg QHS PRN Administration Insomnia Radiology Results: ITS Impressions Chest X-Ray 10/02/25 14:37 IMPRESSION: 1. Right hilar bronchitis and/or developing airspace disease. Labs Labs: Laboratory Tests 10/04/25 04:11 10/04/25 04:11 Calcium 8.4
--- NOTE | 2025-10-04 14:43 | PM.DS ---
DS: Admitting Diagnosis Discharge Date 10/04/2025 Admitting Diagnosis Pneumonia, hyperkalemia, end-stage renal disease on dialysis acute on chronic anemia, peripheral neuropathy type 2 diabetes, hyperlipidemia, hypertension DS: Discharge Diagnosis Discharge Diagnosis (1) Fluid overload: Code(s): E87.70 - Fluid overload, unspecified Status: Acute Assessment and Plan: Fluid overload with associated dyspnea imaging findings possible pneumonia as well as pleural effusion (2) DM2 (diabetes mellitus, type 2): Code(s): E11.9 - Type 2 diabetes mellitus without complications Status: Acute (3) Pneumonia: Code(s): J18.9 - Pneumonia, unspecified organism Status: Acute (4) End stage renal disease on dialysis: Code(s): N18.6 - End stage renal disease; Z99.2 - Dependence on renal dialysis Status: Acute (5) Hypertension: Code(s): I10 - Essential (primary) hypertension Status: Chronic (6) Hyperkalemia: Code(s): E87.5 - Hyperkalemia Status: Acute (7) Acute on chronic anemia: Code(s): D64.9 - Anemia, unspecified Status: Acute (8) Peripheral neuropathy: Code(s): G62.9 - Polyneuropathy, unspecified Status: Acute (9) Hyperlipidemia: Code(s): E78.5 - Hyperlipidemia, unspecified Status: Acute DS: Summary Hospital Course Reason for hospitalization: Respiratory distress, fluid overload, dialysis management with mild hyperkalemia Hospital Course: This is a 40-year-old female patient with a history hypertension type 2 diabetes hyperlipidemia peripheral neuropathy was admitted for dyspnea with fluid overload in the setting missing dialysis on 10/02. She came to the hospital on 10/02 because she was too sick to attend her outpatient dialysis session. She tested negative for COVID flu and RSV in the emergency department. She was started on azithromycin and Rocephin for x-ray findings consistent pneumonia. Nephrology was consulted and patient underwent dialysis on 10/03. She maintained significant hypertension. She stated she had not been able take her medicines appropriately coming to she was feeling ill. She tells me she does her medications plans to resume as scheduled. She is aware of her continued significant hypertension today. Patient noted to slightly worsening anemia admission she received epoetin with dialysis. She underwent dialysis again on 10/04 which is today and after dialysis she stated that she no longer felt dyspneic and was no longer exhibiting swelling in her extremities. Minor residual cough remains been no dyspnea, no hypoxia. Continue treatment with azithromycin and Augmentin for pneumonia and discussed return precautions. Status at Discharge Cognitive/behavioral status at discharge: Awake alert oriented and pleasant Functional status at discharge: independent ambulation Overall status at discharge: patient is back to baseline Time Spent with Patient Time attestation: Total time spent providing and/or coordinating discharge services: 35 minutes Time spent: Greater than 30 minutes Exam Narrative: GENERAL: well-nourished and in no acute distress. HEAD: Normocephalic, atraumatic. ENT:? Mucous membranes moist. CHEST: Clear to auscultation.? No respiratory distress, occasional dry cough HEART: Regular rate and rhythm. ? Normal peripheral pulses. ABDOMEN: Soft, nontender, nondistended. EXTREMITIES: Normal range of motion. No peripheral edema. SKIN: Warm dry normal color NEURO: Alert and oriented x3. PSYCH: Normal mood and affect DS: Data Data Completed and Pending Labs on day of discharge: Labs from last 24 hours 10/04/25 10/04/25 10/04/25 13:24 07:24 04:43 WBC RBC Hgb Hct MCV MCH MCHC RDW Plt Count MPV Sodium Potassium Chloride Carbon Dioxide Anion Gap BUN Creatinine Estim Creat Clear Calc Estimated GFR Glucose POC Capillary Glucose 183 H 311 H 81 Calcium 10/04/25 10/04/25 10/03/25 04:15 04:11 20:23 WBC 7.0 RBC 3.77 L Hgb 11.3 L Hct 35.9 L MCV 95.2 MCH 30.0 MCHC 31.5 L RDW 16.0 H Plt Count 232 MPV 9.9 Sodium 138 Potassium 4.7 Chloride 98 Carbon Dioxide 28 Anion Gap 12 BUN 36 H D Creatinine 6.73 H Estim Creat Clear Calc 12 Estimated GFR 7 L Glucose 52 L* POC Capillary Glucose 44 L* 186 H Calcium 8.4 10/03/25 15:41 WBC RBC Hgb Hct MCV MCH MCHC RDW Plt Count MPV Sodium Potassium Chloride Carbon Dioxide Anion Gap BUN Creatinine Estim Creat Clear Calc Estimated GFR Glucose POC Capillary Glucose 286 H Calcium Procedures/Treatments: Dialysis on 10/03 and 10/04 Discharge Plan Discharge Consulting providers: Nelly Rocha; Chelsie Basilio; Malathi Reynolds Discharging Clinician: Zeke Li Anticipated Discharge Date/Time: 10/04/25 17:00 Patient Disposition: Home Activity: as tolerated Diet: diabetic and renal Discharge Instructions: Delsym Cough syrup (available off the shelf, follow package instructions) Antibiotics for pneumonia, take after dialysis on your dialysis days--Start tomorrow 10/05/25 Continue your Thu schedule Keep up on your blood pressure medications and follow up with your prescriber about your continued high blood pressure Patient Instructions: Antibiotic Form, How to Stop Smoking (GEN) Patient Language: Irish Stand Alone Forms: General Discharge Information Follow-up/Referrals: Chelsie Basilio MD [Physician, Nephrology] - Call for Appointment Nelly Rocha DO [Physician, Family Practice] - Call for Appointment Discharge Medications: New azithromycin 500 mg tablet 500 mg PO DAILY 3 Days Qty: 3 0RF amoxicillin-pot clavulanate [Augmentin] 500-125 mg tablet 1 tablet PO Q12H Qty: 10 0RF Continued metoclopramide HCl [Reglan] 10 mg tablet 10 mg PO Q6H PRN (Reason: nausea and vomiting) Qty: 20 0RF Patient Comments: Patient states she takes with each meal carvedilol 25 mg tablet 25 mg PO BID atorvastatin 10 mg tablet 10 mg PO DAILY gabapentin 400 mg capsule 400 mg PO TID amlodipine 10 mg tablet 10 mg PO DAILY losartan 100 mg tablet 100 mg PO DAILY calcium acetate(phosphat bind) 667 mg capsule 1,334 mg PO TID ferrous sulfate 325 mg (65 mg iron) tablet 325 mg PO DAILY Qty: 10 0RF insulin aspart U-100 [Novolog FlexPen U-100 Insulin] 100 unit/mL (3 mL) insulin pen 3 unit SUBCUT TIDWM Qty: 15 0RF insulin degludec [Tresiba FlexTouch U-100] 100 unit/mL (3 mL) insulin pen 20 unit SUBCUT QPM albuterol sulfate 90 mcg/actuation HFA aerosol inhaler 2 puff INHALATION DAILY PRN (Reason: shortness of breath or wheezing) hydralazine 25 mg tablet 25 mg PO DAILY pantoprazole 40 mg tablet,delayed release (DR/EC) 40 mg PO BID Qty: 60 0RF trazodone 100 mg tablet See Rx Instructions .ROUTE .COMPLEX Qty: 90 1RF Dose Instruction: TAKE 1 TABLET BY MOUTH EVERY DAY AT BEDTIME NEEDED FOR SLEEP Rx Instructions: TAKE 1 TABLET BY MOUTH EVERY DAY AT BEDTIME NEEDED FOR SLEEP Date of admission: 10/02/25 16:04 Primary Care Provider: PHYSICIAN,LEAN MANUFACTURING COORDINATOR Admitting Provider: Missy Richard Attending physician on admission: Missy Richard Condition: Stable Quality VTE Prophylaxis VTE prophylaxis: pharmacologic ordered (Heparin) Hospitalist MIPS Heart Failure (Exclusion) Patient has history of Heart Transplant or Left Ventricular Assistive Device?: No IF YES, STOP HERE Heart Failure (Qualifier) Patient has current or prior documentation of LVEF less than or equal to 40%, or mod/servere depressed LVSF?: No IF NO, STOP HERE
[2025-10-04] MEDS: cefTRIAXone 1 GM in SODIUM CHLORIDE 0.9% IV 50 ML 100 ML IVPB (15:43)
[2025-10-04] MEDS: AZITHROMYCIN 500 MG TABLET PO (15:43)
--- NOTE | 2025-10-16 15:26 | PCCDE ---
DM educator attempted to place courtesy follow up call. Unable to leave message on cell phone.
== END 2025-10-04 17:11 | disposition home or self-care (01) ==
LOC: ANHED 16:08 → ANHIMU 16:33
PROVIDERS: Internal Medicine Nephrology; Nurse Practitioner; Physician Assistant; Admitting Provider Student in an Organized Health Care Education/Training Program; Emergency Provider Emergency Medicine; Visit Provider Student in an Organized Health Care Education/Training Program
DX: E87.70 Fluid overload, unspecified (principal); J18.9 Pneumonia, unspecified organism; N18.6 End stage renal disease; I12.0 Hypertensive chronic kidney disease with stage 5 chronic kidney disease or end stage renal disease; Z99.2 Dependence on renal dialysis; E11.9 Type 2 diabetes mellitus without complications; Z79.4 Long term (current) use of insulin; I11.0 Hypertensive heart disease with heart failure; I50.9 Heart failure, unspecified; I44.4 Left anterior fascicular block; E83.51 Hypocalcemia; E87.5 Hyperkalemia; E78.5 Hyperlipidemia, unspecified; D64.9 Anemia, unspecified; K21.9 Gastro-esophageal reflux disease without esophagitis; F17.210 Nicotine dependence, cigarettes, uncomplicated; G62.9 Polyneuropathy, unspecified; Z20.822 Contact with and (suspected) exposure to COVID-19; Z90.49 Acquired absence of other specified parts of digestive tract; Z87.19 Personal history of other diseases of the digestive system; Z87.09 Personal history of other diseases of the respiratory system; Z87.11 Personal history of peptic ulcer disease; Z83.3 Family history of diabetes mellitus
CPT/HCPCS: 36415; 71046; 80048; 80053; 82948; 83036; 83880; 85025; 85027; 85610; 85730; 86706; 87040; 87340; 87637; 87641; 93005; 94640; 96365; 96366; 96367; 96375; 96376; 99285; A9270; G0257; G0378; J0456; J0612; J0616; J0696; J1644; J1815; J7030; J7050; Q5105

== ENCOUNTER 2025-10-30 13:47 | Emergency (ER) | payer MEDICARE, MEDICAID, SELFPAY ==
[2025-10-30] VITALS (8 sets, daily range): BP systolic 135–193; BP diastolic 90–112; PULSE 85–98; RESP 12–20; TEMP 36.2; O2SAT 95–100
--- NOTE | ~2025-10-30 | XR_ITS ---
EXAMINATION: XR chest 2V, 10/30/2025 15:35 [facility] HISTORY: SOB w/E, weakness, fatigue COMPARISON: No comparisons available. Technique: 2 views obtained. Findings: Mild pulmonary venous congestion. No pneumothorax. Mild cardiomegaly. Mediastinal and hilar contours are within normal limits. Bony thorax no acute abnormality. Impression: Mild CHF Reviewed, dictated and finalized at location [facility] Impression: Mild CHF
--- NOTE | 2025-10-30 14:34 | ECG_ITS ---
Test Date: 2025-10-30 15:04:50 Measurements Intervals [place] Rate: 87 P: 42 DC: 184 QRS: 2 QRSD: 88 T: 14 QT: 404 QTc: 488 Interpretive Statements SINUS RHYTHM POSSIBLE LEFT ATRIAL ENLARGEMENT CONSIDER ANTERIOR INFARCT, AGE INDETERMINATE BORDERLINE ST-T WAVE ABNORMALITY- INFERIOR LEADS BASELINE WANDER- I, II, III, AVR, V3-V4 BORDERLINE ECG Compared to ECG 10/02/2025 14:19:48 Left anterior fascicular block no longer present Electronically Signed On 10-30-2025 15:57:26 TRANSPORTER DRIVER by Josr Edmonds D.O.
--- NOTE | 2025-10-30 15:24 | ED.SOB ---
HPI - SOB/Dyspnea General Chief Complaint: Shortness of Breath/Dyspnea Stated Complaint: here a month ago w/ pneumonia, feels worse Time Seen by Provider: 10/30/25 15:09 Source: patient Mode of arrival: ambulatory Limitations: no limitations History of Present Illness HPI Narrative: This is a 40-year-old female with history of ESRD on dialysis, diabetes, hypertension who presents to the ED for flu-like symptoms. Patient states that for the past 4 weeks, she she has had diffuse body aches and subjective fevers. She was diagnosed with pneumonia a month ago and was admitted for this a discharge after 4 days. She did take antibiotics at home as prescribed. She states she has never improved since then. Has had a cough but denies chest pain and shortness of breath at this time. She last went to dialysis on Thursday but skipped it today to come here. Related Data Home Medications ?Medication ?Instructions ?Recorded ?Confirmed ?Last Taken ?Type amlodipine 10 mg tablet 10 mg PO DAILY 03/21/24 10/02/25 10/01/25 History atorvastatin 10 mg tablet 10 mg PO DAILY 03/21/24 10/02/25 10/01/25 History carvedilol 25 mg tablet 25 mg PO BID 03/21/24 10/02/25 10/01/25 History gabapentin 400 mg capsule 400 mg PO TID 03/21/24 10/02/25 10/01/25 History losartan 100 mg tablet 100 mg PO DAILY 03/21/24 10/02/25 10/01/25 History calcium acetate(phosphat bind) 667 1,334 mg PO TID 03/22/24 10/02/25 10/01/25 History mg capsule albuterol sulfate 90 mcg/actuation 2 puff inhalation DAILY PRN 05/03/25 10/02/25 10/01/25 History aerosol inhaler shortness of breath or wheezing hydralazine 25 mg tablet 25 mg PO DAILY 05/03/25 10/02/25 10/01/25 History insulin degludec 100 unit/mL (3 20 unit subcut QPM 05/03/25 10/02/25 10/01/25 History mL) subcutaneous pen (Tresiba FlexTouch U-100 insulin) Allergies Allergy/AdvReac Type Severity Reaction Status Date / Time No Known Allergies Allergy Verified 10/30/25 13:55 Review of Systems Review of Systems: Gen.: As per HPI Eyes: Denies eye pain or visual change ENT: Denies congestion Respiratory: As per HPI CV: Denies chest pain or palpitations GI: Denies abdominal pain nausea, emesis or diarrhea denies burning, urgency, frequency or hematuria Musculoskeletal: Denies back pain or muscle pain Neuro: Denies numbness, tingling, weakness or focal weakness Skin: Denies rash Except as documented, all other systems reviewed and negative [facility] Past Medical History Medical History Retinopathy Retinal detachment Biliary dyskinesia Chronic cholecystitis Cholelithiasis Encounter for surgical aftercare following surgery on the digestive system Hyperkalemia Hyperlipidemia DM2 (diabetes mellitus, type 2) Numbness of right hand Epistaxis Melena Acute on chronic anemia Gastroparesis CHF (congestive heart failure) Anemia Reactive airway disease PUD (peptic ulcer disease) Peripheral neuropathy GERD (gastroesophageal reflux disease) Hypertension Cannabis use disorder Type 1 diabetes Stated type 2 diabetes. Arteriovenous fistula for hemodialysis in place, primary End stage renal disease on dialysis Surgical History Surgical History H/O eye surgery Bilateral retinopathy H/O cataract extraction Bilateral eyes Hx laparoscopic cholecystectomy lap robina, Da Robin assisted 04/05/24 S/P arteriovenous (AV) fistula creation History of appendectomy Family History Family History Father Diabetes mellitus Mother Diabetes mellitus Sibling Diabetes mellitus Gastric bypass status for obesity Social History Social History Social History: She stated that she is single and disabled. She has no children. Code status: Full code. Smoking packs per day: 1 Smoking cigarettes per day: 20.0 Years smoked: 24 Smoking pack-years: 24.00 Smoking status: Light tobacco smoker Tobacco type: cigarettes Alcohol intake: never Drinks per week: 0 Substance use: current Substance use type: marijuana Other substance usage details: not very often Last use: February Lack of Transportation: No Lack of Food: Never True Current Housing: I Have Housing Concerned About Future Housing: No Difficulty Paying Gas/Electric Bills: No Difficulty Paying for Meds: No Currently Unemployed: No Education: High School Diploma/GED Difficulty w/ Childcare or Family Care: No Living arrangements: with family Spiritual care concerns: No Exam Narrative: APPEARANCE: No acute distress, ill-appearing, resting in bed EYES: EOMI HEENT: Normocephalic, atraumatic, OMM RESPIRATORY: No respiratory distress Clear to auscultation bilaterally with no rhonchi wheezing or rales. CARDIOVASCULAR: Regular rate and rhythm without murmurs rubs or gallops. ABDOMINAL: Soft, nontender, nondistended, no rebound or guarding MUSCULOSKELETAl: Moves all extremities. No clubbing, cyanosis or edema. NEURO: Awake and alert. Following commands, speech normal, no focal deficits SKIN:: Warm, dry. No rashes lesions or abrasions. Fistula to the left upper extremity with palpable thrill PSYCHIATRIC: Normal affect/mood, Course Vital Signs Vital signs: Vital Signs Temperature 97.1 F L 10/30/25 13:55 Pulse Rate 98 10/30/25 13:55 Respiratory Rate 20 10/30/25 13:55 Blood Pressure 135/90 10/30/25 13:55 Pulse Oximetry 99 10/30/25 13:55 Oxygen Delivery Room Air 10/30/25 13:55 Temperature 97.1 F L 10/30/25 13:55 Pulse Rate 88 10/30/25 17:46 Respiratory Rate 20 10/30/25 17:46 Blood Pressure 190/107 H 10/30/25 17:46 Pulse Oximetry 100 10/30/25 17:46 Oxygen Delivery Room Air 10/30/25 15:22 [facility] Narrative Medical decision making narrative: 40-year-old female Presenting for diffuse body aches. On initial evaluation patient was in no acute distress afebrile, hemodynamic stable. Differentials include but are not limited to: Viral syndrome, strep pharyngitis, viral pharyngitis, sinusitis, laryngitis, pneumonia Notable exam findings: Left upper extremity fistula with palpable thrill. Heart and lungs clear. I personally reviewed the patient's lab result. Notable lab findings: CBC without significant abnormalities. CMP showed significant electrolyte derangements there were consistent with her end-stage renal disease. COVID/flu/RSV negative. I personally reviewed the patient's images and interpret as follows: Chest x-ray showed cardiomegaly with mild pulmonary vascular congestion. I personally reviewed the patient's EKGs: Normal sinus rhythm rate of 87 normal axis referrals poor R-wave progression, no acute ST or T-wave changes Labs were consistent with her ESRD in missing dialysis today. There is no EKG changes. I did reach out to Dr. Basilio, Nephrology, who recommended that she call her dialysis center tomorrow to potentially be fitted for dialysis. No other clear source of infection at this time so patient likely has a viral syndrome causing her symptoms. She was advised to follow-up with her PCP in the next week for re-evaluation. Patient was agreeable to this plan. Given strict return precautions. Differential Diagnosis Differential Diagnosis: Viral syndrome, strep pharyngitis, viral pharyngitis, sinusitis, laryngitis, pneumonia Lab Data 10/30/25 15:18 10/30/25 15:18 Labs: Lab Results 10/30/25 10/30/25 Range/Units 15:18 16:46 WBC 6.7 (4.5-10.0) K/mm3 RBC 4.07 L (4.2-5.4) M/mm3 Hgb 12.6 (12.0-15.0) g/dL Hct 37.7 (37.0-47.0) % MCV 92.6 (80-100) fl MCH 31.0 (26-34) pg MCHC 33.4 (32-36) g/dl RDW 15.7 H (11.5-14.5) % Plt Count 216 (150-375) k/mm3 MPV 10.4 (7.4-10.4) fl Immature Gran % (Auto) 0.3 (0-0.5) % Neut % (Auto) 64.1 (45.5-73.1) % Lymph % (Auto) 25.2 (18.3-44.2) % Harvey % (Auto) 4.9 (2.6-8.5) % Eos % (Auto) 4.3 (0-4.4) % Baso % (Auto) 1.2 (0.2-1.2) % Lymph # (Auto) 1.70 (0.9-3.2) K/mm3 Harvey # (Auto) 0.3 (0.1-0.6) K/mm3 Eos # (Auto) 0.3 (0-0.3) K/mm3 Baso # (Auto) 0.1 (0.0-0.1) K/mm3 Abs Immat Gran (auto) 0.02 (0.00-0.031) K/mm3 Absolute Neuts (auto) 4.3 (1.3-6.7) K/mm3 Absolute Nucleated RBC 0.000 (0.0-0.012) K/mm3 Nucleated RBC % 0.0 (0.0-0.2) % Sodium 133 L (137-145) mmol/L Potassium 4.8 (3.4-5.0) mmol/L Chloride 90 L (98-107) mmol/L Carbon Dioxide 24 (22-30) mmol/L Anion Gap 19 H (4-12) mmol/L BUN 70 H D (7-17) mg/dL Creatinine 12.82 H (0.7-1.0) mg/dL Estim Creat Clear Calc 6 ml/min Estimated GFR 3 L (59 - ) Glucose 302 H (65-110) mg/dL Calcium 6.9 L (8.4-10.2) mg/dL Total Bilirubin 0.8 (0.2-1.3) mg/dL AST 30 (14-36) U/L ALT 23 (6-35) U/L Alkaline Phosphatase 127 H (38-126) U/L Total Protein 8.8 H (6.3-8.2) g/dL Albumin 4.5 (3.5-5.1) g/dL Influenza A (RT-PCR) Negative (Negative) Influenza B (RT-PCR) Negative (Negative) RSV (RT-PCR) Negative (Negative) SARS-CoV-2 RNA (RT-PCR) Negative (Negative) Imaging Data Radiologist's impression: ITS Impressions Chest X-Ray 10/30/25 15:55 Impression: Mild CHF Discharge Plan Discharge Clinical Impression: Acute viral syndrome Patient Disposition: Home Condition: Stable Instructions: Antibiotic Form, Viral Syndrome (ED) Additional Instructions: Lab work and imaging showed no evidence of severe infection. Call your dialysis center tomorrow to see if they can fit you in for dialysis tomorrow. Return to the ED for new or worsening symptoms. Patient Language: Luxembourgish Prescriptions: No Action metoclopramide HCl [Reglan] 10 mg tablet 10 mg PO Q6H PRN (Reason: nausea and vomiting) Qty: 20 0RF Patient Comments: Patient states she takes with each meal carvedilol 25 mg tablet 25 mg PO BID atorvastatin 10 mg tablet 10 mg PO DAILY gabapentin 400 mg capsule 400 mg PO TID amlodipine 10 mg tablet 10 mg PO DAILY losartan 100 mg tablet 100 mg PO DAILY calcium acetate(phosphat bind) 667 mg capsule 1,334 mg PO TID ferrous sulfate 325 mg (65 mg iron) tablet 325 mg PO DAILY Qty: 10 0RF insulin aspart U-100 [Novolog FlexPen U-100 Insulin] 100 unit/mL (3 mL) insulin pen 3 unit SUBCUT TIDWM Qty: 15 0RF insulin degludec [Tresiba FlexTouch U-100] 100 unit/mL (3 mL) insulin pen 20 unit SUBCUT QPM albuterol sulfate 90 mcg/actuation HFA aerosol inhaler 2 puff INHALATION DAILY PRN (Reason: shortness of breath or wheezing) hydralazine 25 mg tablet 25 mg PO DAILY pantoprazole 40 mg tablet,delayed release (DR/EC) 40 mg PO BID Qty: 60 0RF azithromycin 500 mg tablet 500 mg PO DAILY 3 Days Qty: 3 0RF amoxicillin-pot clavulanate [Augmentin] 500-125 mg tablet 1 tablet PO Q12H Qty: 10 0RF trazodone 100 mg tablet See Rx Instructions .ROUTE .COMPLEX Qty: 90 1RF Dose Instruction: TAKE 1 TABLET BY MOUTH EVERY DAY AT BEDTIME NEEDED FOR SLEEP Rx Instructions: TAKE 1 TABLET BY MOUTH EVERY DAY AT BEDTIME NEEDED FOR SLEEP Follow-up/Referrals: Chelsie Basilio MD [Physician, Nephrology] UNKNOWN,DOCTOR [Primary Care Provider]
[2025-10-30 15:25] LABS: Hematocrit 37.7 % (37.0-47.0); Hemoglobin 12.6 g/dL (12.0-15.0); Immature Granulocyte Percent A 0.3 % (0-0.5); Lymphocytes Absolute Auto 1.70 K/mm3 (0.9-3.2); Mean Corpuscular HGB Conc 33.4 g/dl (32-36); Mean Corpuscular Hemoglobin 31.0 pg (26-34); Mean Corpuscular Volume 92.6 fl (80-100); Nucleated Red Blood Cells Absolute Auto 0.000 K/mm3 (0.0-0.012); Nucleated Red Blood Cells Perc 0.0 % (0.0-0.2); Platelet Count Result 216 k/mm3 (150-375); Red Blood Count 4.07 M/mm3 (4.2-5.4); White Blood Count 6.7 K/mm3 (4.5-10.0)
[2025-10-30 15:42] LABS: Alanine Aminotransferase 23 U/L (6-35); Albumin Level 4.5 g/dL (3.5-5.1); Alkaline Phosphatase 127 U/L (38-126); Anion Gap 19 mmol/L (4-12); Aspartate Amino Transferase 30 U/L (14-36); Bilirubin,Total 0.8 mg/dL (0.2-1.3); Blood Urea Nitrogen 70 mg/dL (7-17); Calcium 6.9 mg/dL (8.4-10.2); Carbon Dioxide 24 mmol/L (22-30); Chloride 90 mmol/L (98-107); Glucose 302 mg/dL (65-110); Potassium 4.8 mmol/L (3.4-5.0); Sodium 133 mmol/L (137-145); Total Protein 8.8 g/dL (6.3-8.2)
[2025-10-30 15:48] LABS: Estimated CRCL calculation 6 ml/min; Estimated Glomerular Filt Rate 3
[2025-10-30] MEDS: ACETAMINOPHEN 500 MG TABLET 1000 MG PO (16:37)
[2025-10-30] MEDS: SODIUM CHLORIDE 0.9% IV 500 ML 999 ML IV CONT (16:38)
[2025-10-30 17:34] LABS: Influenza A QL RT-PCR Negative (Negative); Influenza B QL RT-PCR Negative (Negative); RSV RNA, RT-PCR Negative (Negative); SARS-CoV-2 RNA PCR Negative (Negative)
== END 2025-10-30 18:16 | disposition home or self-care (01) ==
PROVIDERS: Emergency Medicine; Emergency Provider Student in an Organized Health Care Education/Training Program
DX: B34.9 Viral infection, unspecified (principal); Z20.822 Contact with and (suspected) exposure to COVID-19; E78.5 Hyperlipidemia, unspecified; I50.9 Heart failure, unspecified; D64.9 Anemia, unspecified; J45.909 Unspecified asthma, uncomplicated; I13.2 Hypertensive heart and chronic kidney disease with heart failure and with stage 5 chronic kidney disease, or end stage renal disease; E11.22 Type 2 diabetes mellitus with diabetic chronic kidney disease; N18.6 End stage renal disease; Z99.2 Dependence on renal dialysis
CPT/HCPCS: 36415; 71046; 80053; 85025; 87637; 93005; 99284; A9270; J7040